=== PATIENT | female | born 1960 | race Caucasian/White ===

== ENCOUNTER 2017-06-23 15:51 | Inpatient (IN) | payer MEDICAID ==
[2017-06-23 15:55] VITALS: BP 155/85; PULSE 165; RESP 18; TEMP 97.8; O2SAT 100
--- NOTE | 2017-06-23 16:19 | RADRPT ---
EXAM DATE/TIME: 06/23/2017 16:08 [facility] COMPARISON: No previous studies available for comparison. INDICATIONS : Short of breath. Chest pain. MEDICAL HISTORY : Chronic obstructive pulmonary disease. A fib. SURGICAL HISTORY : None. ENCOUNTER: Initial ACUITY: 1 day PAIN SCORE: 0/10 LOCATION: Bilateral chest FINDINGS: PA and lateral views of the chest demonstrate the lungs to be symmetrically aerated with hazy perihil ar and bibasal or opacities with no focal consolidation or effusion. The heart size at the upper limi ts of normal. The bony thorax is intact. CONCLUSION: Bilateral hazy perihilar and bibasal opacities of concern for pulmonary edema which m ay be noncardiogenic. Cliff Bernal MD on June 23, 2017 at 16:18 Board Certified Radiologist. This report was verified electronically.
[2017-06-23 16:45] LABS: AUTOMATED NEUTROPHIL # 6.4 TH/MM3 (1.8-7.7); BASOPHIL # 0.1 TH/MM3 (0-0.2); BASOPHIL % 0.8 % (0.0-2.0); EOSINOPHIL # 0.2 TH/MM3 (0-0.4); EOSINOPHIL % 2.9 % (0.0-4.0); HEMOGLOBIN 7.9 GM/DL (11.6-15.3); INTERNATIONAL NORMALIZED RATIO 1.2 RATIO; LYMPH % 14.3 % (9.0-44.0); LYMPHOCYTE # 1.2 TH/MM3 (1.0-4.8); MEAN CELL VOLUME 69.7 FL (80.0-100.0); MEAN CORPUSCULAR HEMOGLOBIN 21.3 PG (27.0-34.0); MEAN CORPUSCULAR HGB CONC 30.5 % (32.0-36.0); MEAN PLATELET VOLUME 8.8 FL (7.0-11.0); MONO % 6.7 % (0.0-8.0); MONOCYTE # 0.6 TH/MM3 (0-0.9); NEUT % 75.3 % (16.0-70.0); PLATELET COUNT 294 TH/MM3 (150-450); PROTHROMBIN TIME - PATIENT 12.2 SEC (9.8-11.6); RED BLOOD COUNT 3.73 MIL/MM3 (4.00-5.30); RED CELL DISTRIBUTION WIDTH 22.1 % (11.6-17.2); WHITE BLOOD COUNT 8.5 TH/MM3 (4.0-11.0)
[2017-06-23 16:46] LABS: ALBUMIN 3.5 GM/DL (3.4-5.0); ALT (GPT) 12 U/L (10-53); AST (GOT) 18 U/L (15-37); BICARBONATE 24.2 MEQ/L (21.0-32.0); BLOOD UREA NITROGEN 15 MG/DL (7-18); CALCIUM 8.9 MG/DL (8.5-10.1); CHLORIDE 103 MEQ/L (98-107); CREATININE 0.81 MG/DL (0.50-1.00); GLOMERULAR FILTRATION RATE 72 ML/MIN (>89); GLUCOSE,RANDOM 95 MG/DL (74-106); MAGNESIUM 1.7 MG/DL (1.5-2.5); SODIUM (NA) 136 MEQ/L (136-145)
[2017-06-23 16:50] LABS: ALKALINE PHOSPHATASE 122 U/L (45-117); TOTAL BILIRUBIN ADULT 1.1 MG/DL (0.2-1.0); TROPONIN I LESS THAN 0.02 NG/ML (0.02-0.05)
[2017-06-23] MEDS ORDERED: OMEP20TA93 PO (17:05)
[2017-06-23] MEDS ORDERED: PARO20TA2 PO (17:05)
[2017-06-23] MEDS ORDERED: DILTIAZEM INJ 125 MG in SODIUM CHLORIDE 0.9% INJ 100 ML IV PRN (17:15)
[2017-06-23] MEDS ORDERED: DILTIAZEM HCL 25 MG/5 ML VIAL IV PUSH ONE (17:15)
[2017-06-23] MEDS: SODIUM CHLOR 0.9% 1000 ML INJ 1,000 ML IV SCH (17:26)
--- NOTE | 2017-06-23 17:39 | PD ---
HPI Chief Complaint: Abdominal Pain Time Seen by Provider: 16:51 Travel History International Travel<30 days: No Contact w/Intl Traveler<30days: No Traveled to known affect area: No History of Present Illness HPI 57-year-old female complains of epigastric abdominal pain, nausea vomiting and shortness of breath. Patient states that the symptoms started 3 days ago. Patient states the pain is burning pain sharp pain localized around epigastric area. Patient denies any pain radiation. Patient denies any fever chills. Patient states that she has nausea vomiting and diarrhea with the pain. Patient has history of atrial fibrillation. Patient was on Coumadin in the past. Coumadin was stopped and patient was put on Xarelto 2 years ago. Patient states that she stopped taking the round to 2 weeks ago after has severe itching of the skin. Patient states that she has persistent skin itching despite stopping Xarelto. Patient denies any new medication. Patient denies any new exposure. Patient has history hypertension, COPD, GERD. Patient states that she has not taken any medication for blood pressure or GERD. Patient denies any history of alcohol abuse. Patient has history of anemia. Patient states that she had upper GI and colonoscopy done without clear source of GI bleed. Patient had blood transfusion in the past for anemia. Patient was on metoprolol and omeprazole in the past. PFSH Past Medical History Anemia: Yes Anxiety: Yes Cardiovascular Problems: Yes GERD: Yes Respiratory: Yes Tubal Ligation: Yes Social History Alcohol Use: No Tobacco Use: Yes (ppd) Substance Use: No Allergies-Medications (Allergen,Severity, Reaction): Coded Allergies: Sulfa (Sulfonamide Antibiotics) (Verified Allergy, Unknown, 06/23/17) ciprofloxacin (Verified Allergy, Unknown, 06/23/17) hydromorphone (Verified Allergy, Unknown, 06/23/17) Reported Meds & Prescriptions Reported Meds & Active Scripts Active Reported Paroxetine (Paroxetine HCl) Unknown Strength Tab Unknown Dose PO DAILY Omeprazole Unknown Strength Tab Unknown Dose PO DAILY Review of Systems General / Constitutional: No: Fever Eyes: No: Visual changes HENT: No: Headaches Cardiovascular: No: Chest Pain or Discomfort Respiratory: Positive: Shortness of Breath Gastrointestinal: Positive: Nausea, Vomiting, Diarrhea, Abdominal Pain Genitourinary: No: Dysuria Musculoskeletal: No: Pain Skin: No Rash Neurologic: No: Weakness Psychiatric: No: Depression Endocrine: No: Polydipsia Hematologic/Lymphatic: No: Easy Bruising Physical Exam Narrative GENERAL: Well-nourished, well-developed patient. SKIN: Focused skin assessment warm/dry. Mild jaundice noted. Multiple small lesions on the upper extremity. HEAD: Normocephalic. EYES: Mild bilaterally scleral icterus. No injection or drainage. NECK: Supple, trachea midline. No JVD or lymphadenopathy. CARDIOVASCULAR: Irregular irregular rate and rhythm without murmurs, gallops, or rubs. RESPIRATORY: Breath sounds equal bilaterally. No accessory muscle use. GASTROINTESTINAL: Abdomen soft, nondistended. Patient has moderate tenderness on palpation epigastric area. No rebound tenderness. No mass. MUSCULOSKELETAL: No cyanosis, or edema. BACK: Nontender without obvious deformity. No CVA tenderness. Neurologic exam normal. Data Data Last Documented VS Vital Signs Date Time Temp Pulse Resp B/P (MAP) Pulse Ox O2 Delivery O2 Flow Rate FiO2 06/23/17 15:55 97.8 165 18 155/85 (108) 100 Orders Orders Electrocardiogram (06/23/17 15:58) Ckmb (Isoenzyme) Profile (06/23/17 15:58) Complete Blood Count With Diff (06/23/17 15:58) Comprehensive Metabolic Panel (06/23/17 15:58) Magnesium (Mg) (06/23/17 15:58) Prothrombin Time / Inr (Pt) (06/23/17 15:58) Act Partial Throm Time (Ptt) (06/23/17 15:58) Troponin I (06/23/17 15:58) Lipase (06/23/17 15:58) Chest, Pa & Lat (06/23/17 15:58) Diltiazem Inj (Cardizem Inj) (06/23/17 17:15) Diltiazem Inj (Cardizem Inj) (06/23/17 17:15) Sodium Chlor 0.9% 1000 Ml Inj (Ns 1000 M (06/23/17 17:15) Labs Laboratory Tests Test 06/23/17 16:15 White Blood Count 8.5 TH/MM3 Red Blood Count 3.73 MIL/MM3 Hemoglobin 7.9 GM/DL Hematocrit 26.0 % Mean Corpuscular Volume 69.7 FL Mean Corpuscular Hemoglobin 21.3 PG Mean Corpuscular Hemoglobin Concent 30.5 % Red Cell Distribution Width 22.1 % Platelet Count 294 TH/MM3 Mean Platelet Volume 8.8 FL Neutrophils (%) (Auto) 75.3 % Lymphocytes (%) (Auto) 14.3 % Monocytes (%) (Auto) 6.7 % Eosinophils (%) (Auto) 2.9 % Basophils (%) (Auto) 0.8 % Neutrophils # (Auto) 6.4 TH/MM3 Lymphocytes # (Auto) 1.2 TH/MM3 Monocytes # (Auto) 0.6 TH/MM3 Eosinophils # (Auto) 0.2 TH/MM3 Basophils # (Auto) 0.1 TH/MM3 CBC Comment DIFF FINAL Differential Comment Prothrombin Time 12.2 SEC Prothromb Time International Ratio 1.2 RATIO Activated Partial Thromboplast Time 23.8 SEC Blood Urea Nitrogen 15 MG/DL Creatinine 0.81 MG/DL Random Glucose 95 MG/DL Total Protein 8.0 GM/DL Albumin 3.5 GM/DL Calcium Level 8.9 MG/DL Magnesium Level 1.7 MG/DL Alkaline Phosphatase 122 U/L Aspartate Amino Transf (AST/SGOT) 18 U/L Alanine Aminotransferase (ALT/SGPT) 12 U/L Total Bilirubin 1.1 MG/DL Sodium Level 136 MEQ/L Potassium Level 3.3 MEQ/L Chloride Level 103 MEQ/L Carbon Dioxide Level 24.2 MEQ/L Anion Gap 9 MEQ/L Estimat Glomerular Filtration Rate 72 ML/MIN Total Creatine Kinase 43 U/L Troponin I LESS THAN 0.02 NG/ML Lipase 115 U/L MDM Medical Decision Making Medical Screen Exam Complete: Yes Emergency Medical Condition: Yes Interpretation(s) 1737 PM. Chest x-ray shows bilateral haziness perihilar and bibasilar possible pulmonary edema. CBC WBC 8.5. Hemoglobin 7.9 hematocrit 26.0. MCV 69.7. 75 neutrophil. Potassium 3.3. Total bili 1.1. Alkaline phosphatase 122. Cardiac enzymes are normal. INR 1.2. Differential Diagnosis Differential diagnosis including hepatitis, cholecystitis, gastritis, PUD, pancreatitis, colitis, UTI, pyelonephritis, nephrolithiasis. Narrative Course 57-year-old female complaints of itching, epigastric abdominal pain, nausea vomiting diarrhea. Patient has history of atrial fibrillation. EKG showed A. fib with RVR. Cardizem bolus and drip started. Normal saline solution 75 cc an hour. Diagnosis Primary Impression: Atrial fibrillation with RVR Aldo Laughlin MD Jun 23, 2017 17:39
[2017-06-23] MEDS ORDERED: diphenhydrAMINE HCL 50 MG/ML VIAL IV PUSH ONE (17:45)
[2017-06-23] MEDS ORDERED: ONDANSETRON HCL 4 MG/2 ML VIAL IV PUSH ONE (18:00)
[2017-06-23] MEDS ORDERED: ATROPINE/SCOPOLAM/HYOSCYAM/PB ELIXIR 10 ML CUP PO ONE (18:00)
[2017-06-23] MEDS ORDERED: ALUMINUM/MAGNESIUM/SIMETH 30 ML CUP PO ONE (18:00)
[2017-06-23] MEDS ORDERED: FAMOTIDINE 20 MG/2 ML VIAL IV PUSH ONE (18:00)
[2017-06-23 19:00] VITALS: BP 126/60; PULSE 119; RESP 21; O2SAT 98
[2017-06-23] MEDS ORDERED: IOHEXOL 350 MG/ML 10 ML VIAL (for RAD DIAG) IVCONTRAST ONE (19:33)
--- NOTE | 2017-06-23 19:51 | RADRPT ---
EXAM DATE/TIME: 06/23/2017 19:25 [facility] COMPARISON: No previous studies available for comparison. INDICATIONS : Epigastric abdominal pain. IV CONTRAST: 100 cc Omnipaque 350 (iohexol) IV ORAL CONTRAST: No oral contrast ingested. RADIATION DOSE: 6.64 CTDIvol (mGy) MEDICAL HISTORY : Cardiovascular disease. Gastroesophageal reflux disease. SURGICAL HISTORY : Tubal ligation. ENCOUNTER: Initial ACUITY: 3 days PAIN SCALE: 9/10 LOCATION: Bilateral upper quadrant TECHNIQUE: Volumetric scanning of the abdomen and pelvis was performed. Using automated exposure control and ad justment of the mA and/or kV according to patient size, radiation dose was kept as low as reasonably achievable to obtain optimal diagnostic quality images. DICOM format image data is available electro nically for review and comparison. FINDINGS: A small right sided effusion and trace left-sided effusion is present. The liver and spleen are danni l in size and no focal defects are identified. There is a single stone within the gallbladder without wall thickening or pericholecystic fluid measuring 1 mm. The pancreas demonstrates no evidence of ma ss and there is no dilatation of the pancreatic duct. The adrenal glands and kidneys appear normal bi laterally. No hydronephrosis or mass lesions are identified. Examination of the pelvis demonstrates no evidence of free fluid or pelvic mass. No abnormally enlarg ed inguinal or retroperitoneal lymph nodes are present. The bladder is unremarkable. CONCLUSION: Small bilateral effusions No evidence of acute abdominal or pelvic process. No masses are identified. Cholelithiasis Lalo Wong MD on June 23, 2017 at 19:46 Board Certified Radiologist. This report was verified electronically.
--- NOTE | 2017-06-23 20:14 | PD ---
Data Data Last Documented VS Vital Signs Date Time Temp Pulse Resp B/P (MAP) Pulse Ox O2 Delivery O2 Flow Rate FiO2 06/23/17 19:00 119 21 126/60 (82) 98 Nasal Cannula 2.00 06/23/17 15:55 97.8 Orders Orders Electrocardiogram (06/23/17 15:58) Ckmb (Isoenzyme) Profile (06/23/17 15:58) Complete Blood Count With Diff (06/23/17 15:58) Comprehensive Metabolic Panel (06/23/17 15:58) Magnesium (Mg) (06/23/17 15:58) Prothrombin Time / Inr (Pt) (06/23/17 15:58) Act Partial Throm Time (Ptt) (06/23/17 15:58) Troponin I (06/23/17 15:58) Lipase (06/23/17 15:58) Chest, Pa & Lat (06/23/17 15:58) Diltiazem Inj (Cardizem Inj) (06/23/17 17:15) Diltiazem Inj (Cardizem Inj) (06/23/17 17:15) Sodium Chlor 0.9% 1000 Ml Inj (Ns 1000 M (06/23/17 17:15) Diphenhydramine Inj (Benadryl Inj) (06/23/17 17:45) Famotidine Inj (Pepcid Inj) (06/23/17 18:00) Al-Mag Hy-Si 40-40-4 Mg/Ml Liq (Mag-Al P (06/23/17 18:00) Tstil-Sllliy-Zgsdcf-Pb Liq ( Liq (06/23/17 18:00) Ondansetron Inj (Zofran Inj) (06/23/17 18:00) Ct Abd/Pel W Iv Contrast(Rout) (06/23/17 18:10) Iohexol 350 Inj (Omnipaque 350 Inj) (06/23/17 19:33) Type And Screen (06/23/17 20:14) Red Blood Cells (Rbc) (06/23/17 20:14) Potassium Chloride (Kcl) (06/23/17 20:15) B-Type Natriuretic Peptide (06/23/17 20:14) Admit Order (Ed Use Only) (06/23/17 20:28) Direct Tobias (06/23/17 22:00) Labs Laboratory Tests Test 06/23/17 16:15 White Blood Count 8.5 TH/MM3 Red Blood Count 3.73 MIL/MM3 Hemoglobin 7.9 GM/DL Hematocrit 26.0 % Mean Corpuscular Volume 69.7 FL Mean Corpuscular Hemoglobin 21.3 PG Mean Corpuscular Hemoglobin Concent 30.5 % Red Cell Distribution Width 22.1 % Platelet Count 294 TH/MM3 Mean Platelet Volume 8.8 FL Neutrophils (%) (Auto) 75.3 % Lymphocytes (%) (Auto) 14.3 % Monocytes (%) (Auto) 6.7 % Eosinophils (%) (Auto) 2.9 % Basophils (%) (Auto) 0.8 % Neutrophils # (Auto) 6.4 TH/MM3 Lymphocytes # (Auto) 1.2 TH/MM3 Monocytes # (Auto) 0.6 TH/MM3 Eosinophils # (Auto) 0.2 TH/MM3 Basophils # (Auto) 0.1 TH/MM3 CBC Comment DIFF FINAL Differential Comment Prothrombin Time 12.2 SEC Prothromb Time International Ratio 1.2 RATIO Activated Partial Thromboplast Time 23.8 SEC Blood Urea Nitrogen 15 MG/DL Creatinine 0.81 MG/DL Random Glucose 95 MG/DL Total Protein 8.0 GM/DL Albumin 3.5 GM/DL Calcium Level 8.9 MG/DL Magnesium Level 1.7 MG/DL Alkaline Phosphatase 122 U/L Aspartate Amino Transf (AST/SGOT) 18 U/L Alanine Aminotransferase (ALT/SGPT) 12 U/L Total Bilirubin 1.1 MG/DL Sodium Level 136 MEQ/L Potassium Level 3.3 MEQ/L Chloride Level 103 MEQ/L Carbon Dioxide Level 24.2 MEQ/L Anion Gap 9 MEQ/L Estimat Glomerular Filtration Rate 72 ML/MIN Total Creatine Kinase 43 U/L Troponin I LESS THAN 0.02 NG/ML B-Type Natriuretic Peptide 381 PG/ML Lipase 115 U/L [facility] Medical Record Reviewed: Yes Supervised Visit with FLORINA: No Narrative Course During the course of the patient's emergency department visit, the patient's history, examination, and differential diagnosis were reviewed with the patient. The patient was placed on a monitoring and evaluation advisor with oximetry and frequent blood pressure monitoring. The patient had IV access obtained and blood work sent for analysis. The patient's case was checked out to me by Dr. Laughlin. Please see his complete history and physical. The patient presented with A. fib with RVR and is now on a Cardizem drip. The patient also presented with midepigastric abdominal pain. The patient has recently been off of her medications. The patient was initially provided normal saline at 100 mL/h, Cardizem as a bolus and then a drip, Zofran 4 mg IV, famotidine 20 mg IV. The patient's laboratory studies were reviewed and remarkable for a white count of 8.5, hemoglobin 7.9 in a patient who reports a history of anemia status post endoscopy and colonoscopy and no discernible cause for her anemia. She reports that she has had blood transfusions in the past. Platelets are 294, neutrophils 75.3, CMP is remarkable for potassium of 3.3 which will be supplemented orally, GFR 72, total bilirubin 1.1, alk phos 122, cardiac enzymes within normal limits, lipase 115, PT 12.2, INR 1.2, PTT 23.8 Radiology studies were reviewed and remarkable for a chest x-ray that shows bilateral hazy perihilar and bibasilar opacities of concern for pulmonary edema which may be noncardiogenic as the patient has no cardiac enlargement. CT scan of the abdomen and pelvis revealed small bilateral effusions, no evidence of acute abdominal or pelvic process. No masses are identified. The patient's results were discussed with the patient, including the plan of care. I explained that further testing and/ or monitoring is indicated based on the patient's history, examination, and/ or laboratory findings. Therefore, I recommended admission for additional evaluation. The patient expressed understanding and was agreeable with this plan. The patient was admitted to the hospital in guarded condition and [facility] Phys[facility] Communication Physician Communication The patient's case including history, pertinent physical examination findings, and laboratory studies were discussed with Dr. Dickerson. It was agreed that the [facility] would [facility] Diagnosis Primary Impression: Atrial fibrillation with RVR Additional Impression: Anemia Qualified Codes: D64.9 - Anemia, unspecified Admitting Information Admitting Physician Requests: Admit Mirta Bateman MD Jun 23, 2017 20:14
[2017-06-23] MEDS ORDERED: POTASSIUM CHLORIDE 20 MEQ CONTROLLED RELEASE TAB PO ONE (20:15)
[2017-06-23] MEDS ORDERED: SODIUM CHLOR 0.45% 1000 ML INJ 1,000 ML IV SCH (20:29)
[2017-06-23] MEDS ORDERED: SENNOSIDES 8.6 MG TAB PO PRN (20:30)
[2017-06-23] MEDS ORDERED: MAGNESIUM HYDROXIDE SUSP 30 ML CUP PO PRN (20:30)
[2017-06-23] MEDS ORDERED: BISACODYL 10 MG SUPP RECTAL PRN (20:30)
[2017-06-23] MEDS ORDERED: SODIUM CHLORIDE 0.9% FLUSH 10 ML FLUSH IV FLUSH PRN (20:30)
[2017-06-23] MEDS ORDERED: ONDANSETRON HCL 4 MG/2 ML VIAL IVP PRN (20:30)
[2017-06-23] MEDS ORDERED: NALOXONE HCL 0.4 MG/ML AMP IV PUSH PRN (20:30)
[2017-06-23] MEDS ORDERED: LACTULOSE SYRUP 20 GM/30 ML CUP PO PRN (20:30)
[2017-06-23] MEDS ORDERED: ACETAMINOPHEN 325 MG TAB PO PRN (20:30)
[2017-06-23] MEDS: SODIUM CHLORIDE 0.9% FLUSH 10 ML FLUSH IV FLUSH SCH (21:00)
[2017-06-23 21:05] VITALS: BP 133/64; PULSE 122; RESP 19; O2SAT 96
[2017-06-23 21:11] VITALS: O2SAT 93
[2017-06-23 23:00] VITALS: BP 146/70; PULSE 120; RESP 18; O2SAT 96
[2017-06-23] MEDS ORDERED: hydrOXYzine PAMOATE 25 MG CAP PO PRN (23:30)
--- NOTE | 2017-06-23 23:33 | HHI.HP ---
[facility] Non[facility]Staff Admission Diagnosis Afib with RVR, Anemia Diagnoses: Chief Complaint: Midepigastric pain and shortness of breath Travel History International Travel<30 Days: No Contact w/Intl Traveler <30 Da: No Traveled to Known Affected Are: No History of Present Illness 57-year-old female with a medical history significant for atrial fibrillation, anxiety, GERD who presents to the hospital with complaint of midepigastric discomfort and shortness of breath. Patient reports her symptoms started all couple of days ago. Apparently she is in the process of moving to [place]. She currently lives in [place] and is here temporarily. She has not been taking any of her medications for this past week. She states she normally takes metoprolol for atrial fibrillation and discontinued Xarelto about 3 weeks ago secondary to adverse skin reaction. Patient reported a sensation of burning midepigastric pain. She states she has a history of GERD and has had endoscopy and colonoscopy done without significant findings. She states she has had blood transfusion in the past for anemia. Workup in the emergency room revealed the patient to be in A. fib with RVR. She denies shortness of breath currently. Currently she reports feeling mildly anxious. Review of Systems Constitutional: DENIES: Fever, Chills Respiratory: COMPLAINS OF: Shortness of breath Cardiovascular: DENIES: Chest pain Gastrointestinal: COMPLAINS OF: Abdominal pain, Nausea, Vomiting, DENIES: Black stools Musculoskeletal: DENIES: Joint pain Integumentary: COMPLAINS OF: Pruritus, Rash Psychiatric: COMPLAINS OF: Anxiety Except as stated in HPI: all other systems reviewed are Neg Past Family Social History Past Medical History atrial fibrillation, anxiety, GERD Past Surgical History Tubal ligation Reported Medications Poor historian Reportedly on metoprolol, paroxetine, omeprazole Allergies: Coded Allergies: Sulfa (Sulfonamide Antibiotics) (Verified Allergy, Unknown, 06/23/17) ciprofloxacin (Verified Allergy, Unknown, 06/23/17) hydromorphone (Verified Allergy, Unknown, 06/23/17) Family History Both parents with a history of CVA. Social History Current tobacco abuser 1 pack per day. Denies alcohol or illicit drugs. Physical Exam Vital Signs Vital Signs Date Time Temp Pulse Resp B/P (MAP) Pulse Ox O2 Delivery O2 Flow Rate FiO2 06/23/17 21:11 93 06/23/17 19:00 119 21 126/60 (82) 98 Nasal Cannula 2.00 06/23/17 18:01 127 141/94 06/23/17 15:55 97.8 165 18 155/85 (108) 100 Physical Exam GENERAL: This is a well-nourished, well-developed patient, in no apparent distress. SKIN: Multiple dry scabs involving the upper torso and upper extremity. HEAD: Atraumatic. Normocephalic. No temporal or scalp tenderness. EYES: Pupils equal round and reactive. Extraocular motions intact. No scleral icterus. No injection or drainage. ENT: Nose without bleeding, purulent drainage or septal hematoma. Throat without erythema, tonsillar hypertrophy or exudate. Uvula midline. Airway patent. NECK: Trachea midline. No JVD or lymphadenopathy. Supple, nontender, no meningeal signs. CARDIOVASCULAR: Rate around 100. Irregular rhythm. No significant murmurs. RESPIRATORY: Clear to auscultation. Breath sounds equal bilaterally. No wheezes , rales, or rhonchi. GASTROINTESTINAL: Abdomen soft, non-tender, nondistended. No hepato-splenomegaly , or palpable masses. No guarding. MUSCULOSKELETAL: Extremities without clubbing, cyanosis, or edema. No joint tenderness, effusion, or edema noted. No calf tenderness. Negative Homans sign bilaterally. NEUROLOGICAL: Awake and alert. Cranial nerves II through XII intact. Motor and sensory grossly within normal limits. Five out of 5 muscle strength in all muscle groups. Normal speech. Laboratory Laboratory Tests Test 06/23/17 16:15 White Blood Count 8.5 Red Blood Count 3.73 Hemoglobin 7.9 Hematocrit 26.0 Mean Corpuscular Volume 69.7 Mean Corpuscular Hemoglobin 21.3 Mean Corpuscular Hemoglobin Concent 30.5 Red Cell Distribution Width 22.1 Platelet Count 294 Mean Platelet Volume 8.8 Neutrophils (%) (Auto) 75.3 Lymphocytes (%) (Auto) 14.3 Monocytes (%) (Auto) 6.7 Eosinophils (%) (Auto) 2.9 Basophils (%) (Auto) 0.8 Neutrophils # (Auto) 6.4 Lymphocytes # (Auto) 1.2 Monocytes # (Auto) 0.6 Eosinophils # (Auto) 0.2 Basophils # (Auto) 0.1 CBC Comment DIFF FINAL Differential Comment Prothrombin Time 12.2 Prothromb Time International Ratio 1.2 Activated Partial Thromboplast Time 23.8 Blood Urea Nitrogen 15 Creatinine 0.81 Random Glucose 95 Total Protein 8.0 Albumin 3.5 Calcium Level 8.9 Magnesium Level 1.7 Alkaline Phosphatase 122 Aspartate Amino Transf (AST/SGOT) 18 Alanine Aminotransferase (ALT/SGPT) 12 Total Bilirubin 1.1 Sodium Level 136 Potassium Level 3.3 Chloride Level 103 Carbon Dioxide Level 24.2 Anion Gap 9 Estimat Glomerular Filtration Rate 72 Total Creatine Kinase 43 Troponin I LESS THAN 0.02 Lipase 115 Result Diagram: 06/23/17 1615 06/23/17 1615 Imaging Last Impressions Chest X-Ray 06/23/17 1558 Signed Impressions: Service Date/Time: Friday, June 23, 2017 16:08 - CONCLUSION: Bilateral hazy perihilar and bibasal opacities of concern for pulmonary edema which may be noncardiogenic. Cliff Bernal MD Capbryi VTE Risk Assessment Caprini VTE Risk Assessment: Mod/High Risk (score >= 2) Caprini Risk Assessment Model Point Value = 1 Point Value = 2 Point Value = 3 Point Value = 5 Age 41-60 Minor surgery BMI > 25 kg/m2 Swollen legs Varicose veins or History of unexplained or recurrent spontaneous Oral contraceptives or hormone replacement Sepsis (< 1 month) Serious lung disease, including pneumonia (< 1 month) Abnormal pulmonary function Acute myocardial infarction Congestive heart failure (< 1 month) History of inflammatory bowel disease Medical patient at bed rest Age 61-74 Arthroscopic surgery Major open surgery (> 45 min) Laparoscopic surgery (> 45 min) Malignancy Confined to bed (> 72 hours) Immobilizing plaster cast Central venous access Age >= 75 History of VTE Family history of VTE Factor V Leiden Prothrombin [id number] Lupus anticoagulant Anticardiolipin antibodies Elevated serum homocysteine Heparin-induced thrombocytopenia Other congenital or acquired thrombophilia Stroke (< 1 month) Elective arthroplasty Hip, pelvis, or leg fracture Acute spinal cord injury (< 1 month) Prophylaxis Regimen Total Risk Factor Score Risk Level Prophylaxis Regimen 0-1 Low Early ambulation 2 Moderate Order ONE of the following: *Sequential Compression Device (SCD) *Heparin 5000 units SQ BID 3-4 Higher Order ONE of the following medications: *Heparin 5000 units SQ TID *Enoxaparin/Lovenox 40 mg SQ daily (WT < 150 kg, CrCl > 30 mL/min) *Enoxaparin/Lovenox 30 mg SQ daily (WT < 150 kg, CrCl > 10-29 mL/min) *Enoxaparin/Lovenox 30 mg SQ BID (WT < 150 kg, CrCl > 30 mL/min) AND/OR *Sequential Compression Device (SCD) 5 or more Highest Order ONE of the following medications: *Heparin 5000 units SQ TID (Preferred with Epidurals) *Enoxaparin/Lovenox 40 mg SQ daily (WT < 150 kg, CrCl > 30 mL/min) *Enoxaparin/Lovenox 30 mg SQ daily (WT < 150 kg, CrCl > 10-29 mL/min) *Enoxaparin/Lovenox 30 mg SQ BID (WT < 150 kg, CrCl > 30 mL/min) AND *Sequential Compression Device (SCD) Assessment and Plan Problem List: (1) Atrial fibrillation with RVR ICD Code: I48.91 - Unspecified atrial fibrillation Status: Acute Plan: Secondary to noncompliance. Resume metoprolol. Patient does not know her home dose. Start at 50 mg every 8 hours. Wean off Cardizem drip as tolerated. Discussed starting new anticoagulant with the patient. She is agreeable to try Eliquis. This was started and the patient will need a limited supply until she can establish with a new physician. (2) GERD (gastroesophageal reflux disease) ICD Code: K21.9 - Gastro-esophageal reflux disease without esophagitis Plan: Possible gastritis as a cause of her midepigastric pain. This is resolving. -Protonix ordered. (3) Anxiety ICD Code: F41.9 - Anxiety disorder, unspecified Plan: Vistaril as needed (4) Anemia ICD Code: D64.9 - Anemia, unspecified Status: Acute Plan: Chronic anemia possibly secondary to occult GI bleed. Patient reports she has had extensive workup in the past. Continue to monitor H&H and transfuse as indicated. (5) Pulmonary edema ICD Code: J81.1 - Chronic pulmonary edema Plan: Pulmonary edema noted on chest x-ray. However physical exam is reassuring. She was on room air at the time of my exam. Possible early CHF. - BNP is pending. Continue to monitor Discussed Condition With Dr. Bateman Physician Certification 2 Midnight Certification Type: Admission for Inpatient Services Order for Inpatient Services The services are ordered in accordance with Medicare regulations or non- Medicare payer requirements, as applicable. In the case of services not specified as inpatient-only, they are appropriately provided as inpatient services in accordance with the 2-midnight benchmark. Estimated LOS (days): 2 days is the estimated time the patient will need to remain in the hospital, assuming treatment plan goals are met and no additional complications. Post-Hospital Plan: Home Problem Qualifiers (1) Anemia: Qualified Codes: D64.9 - Anemia, unspecified Rosana Dickerson MD Jun 23, 2017 23:33
[2017-06-24] VITALS (35 sets, daily range): BP systolic 77–143; BP diastolic 51–82; PULSE 46–138; RESP 16–20; TEMP 94–98.4; O2SAT 90–100
[2017-06-24] MEDS: METOPROLOL TARTRATE 50 MG TAB PO SCH ×2 (00:15→06:00)
[2017-06-24] MEDS ORDERED: SODIUM CHLORID 0.9% 500 ML INJ 500 ML IV ONE (02:45)
[2017-06-24] MEDS: SODIUM CHLOR 0.9% 1000 ML INJ 1,000 ML IV SCH ×4 (03:15→22:41)
[2017-06-24] MEDS ORDERED: PANTOPRAZOLE SODIUM 40 MG VIAL IV PUSH ONE (03:15)
[2017-06-24 05:38] LABS: AUTOMATED NEUTROPHIL # 5.7 TH/MM3 (1.8-7.7); BASOPHIL % 0.6 % (0.0-2.0); EOSINOPHIL # 0.2 TH/MM3 (0-0.4); EOSINOPHIL % 3.3 % (0.0-4.0); HEMATOCRIT 26.1 % (35.0-46.0); HEMOGLOBIN 7.6 GM/DL (11.6-15.3); LYMPH % 14.2 % (9.0-44.0); MEAN CELL VOLUME 72.9 FL (80.0-100.0); MEAN CORPUSCULAR HEMOGLOBIN 21.2 PG (27.0-34.0); MEAN PLATELET VOLUME 8.9 FL (7.0-11.0); MONO % 3.9 % (0.0-8.0); MONOCYTE # 0.3 TH/MM3 (0-0.9); PLATELET COUNT 258 TH/MM3 (150-450); RED BLOOD COUNT 3.58 MIL/MM3 (4.00-5.30); RED CELL DISTRIBUTION WIDTH 21.5 % (11.6-17.2); WHITE BLOOD COUNT 7.3 TH/MM3 (4.0-11.0)
[2017-06-24 05:40] LABS: MEAN CORPUSCULAR HGB CONC 29.1 % (32.0-36.0)
[2017-06-24 05:57] LABS: BICARBONATE 18.4 MEQ/L (21.0-32.0); CALCIUM 8.6 MG/DL (8.5-10.1); CREATININE 1.16 MG/DL (0.50-1.00)
[2017-06-24] MEDS: APIXABAN 2.5 MG TABLET PO SCH ×2 (09:00→13:06)
[2017-06-24] MEDS ORDERED: PANTOPRAZOLE SOD 40 MG DELAYED RELEASE TAB PO SCH (09:00)
[2017-06-24] MEDS: SODIUM CHLORIDE 0.9% FLUSH 10 ML FLUSH IV FLUSH SCH ×2 (09:49→22:40)
--- NOTE | 2017-06-24 11:28 | EKG ---
Date Performed: 06/23/2017 Time Performed: 16:19:56 PTAGE: 57 years EKG: ATRIAL FIBRILLATION WITH RAPID VENTRICULAR RESPONSE ABNORMAL RHYTHM ECG NO PREVIOUS TRACING DOCTOR: Lalo Yusuf Interpretating Date/Time 06/24/2017 11:26:11
[2017-06-24] MEDS ORDERED: METOPROLOL TARTRATE 50 MG TAB PO SCH ×2 (13:00→21:00)
[2017-06-24] MEDS ORDERED: SODIUM BICARBONATE 8.4% INJ 50 MEQ/50 ML SYR IV PUSH ONE ×2 (14:30→17:00)
[2017-06-24] MEDS ORDERED: FUROSEMIDE 40 MG/4 ML VIAL IV PUSH ONE (14:30)
--- NOTE | 2017-06-24 14:36 | HHI.PR ---
Subjective Remarks Patient very somnolent upon exam this afternoon. Does not wake up to verbal stimulation. Arousable slightly to tactile stimulation. Discussed with nurse, who reports patient has been like this all day Objective Vital Signs Date Time Temp Pulse Resp B/P (MAP) Pulse Ox O2 Delivery O2 Flow Rate FiO2 06/24/17 14:00 46 06/24/17 13:08 47 123/71 (88) 06/24/17 13:00 47 06/24/17 12:15 47 06/24/17 12:00 48 06/24/17 11:03 49 06/24/17 11:03 49 16 126/65 (85) 95 06/24/17 11:00 49 06/24/17 10:42 134/66 (88) 06/24/17 10:02 50 06/24/17 10:00 50 06/24/17 09:55 112/55 (74) 06/24/17 09:35 50 06/24/17 09:00 60 06/24/17 08:14 54 06/24/17 07:42 92 Nasal Cannula 2.00 06/24/17 07:30 55 17 108/57 (74) 95 06/24/17 07:15 60 06/24/17 06:00 59 06/24/17 05:45 61 17 106/61 (76) 97 06/24/17 05:00 58 06/24/17 04:00 58 06/24/17 04:00 98.4 60 17 99/60 (73) 97 06/24/17 03:20 61 18 94/56 (69) 96 06/24/17 03:00 60 17 77/51 (60) 98 06/24/17 03:00 60 06/24/17 02:00 55 06/24/17 02:00 55 81/51 06/24/17 02:00 55 17 81/51 (61) 97 06/24/17 01:00 78 06/24/17 01:00 108 20 110/76 (87) 97 06/24/17 01:00 108 110/76 06/24/17 00:24 128 06/24/17 00:24 138 128/75 06/24/17 00:24 06/24/17 00:24 98.1 138 17 128/75 (92) 97 06/23/17 23:00 120 18 146/70 (95) 96 Nasal Cannula 2.00 06/23/17 21:11 93 06/23/17 21:05 122 19 133/64 (87) 96 Nasal Cannula 2.00 06/23/17 19:00 119 21 126/60 (82) 98 Nasal Cannula 2.00 06/23/17 18:01 127 141/94 06/23/17 15:55 97.8 165 18 155/85 (108) 100 I/O 06/23/17 06/23/17 06/23/17 06/24/17 06/24/17 06/24/17 07:00 15:00 23:00 07:00 15:00 23:00 Intake Total 470 ml 946 ml Output Total 400 ml Balance 70 ml 946 ml Intake Oral 0 ml IV Total 470 ml 946 ml Output Urine Total 400 ml # Bowel Movements 3 Result Diagram: 06/24/17 0429 06/24/17 0429 Objective Remarks GENERAL: Patient sitting up in bed. Snoring, arousable slightly to tactile stimulation. Moans, but no intelligible speech. SKIN: Warm and dry. HEAD: Normocephalic. EYES: No scleral icterus. No injection or drainage. NECK: Supple, trachea midline. No JVD or lymphadenopathy. CARDIOVASCULAR: Regular rate and rhythm without murmurs, gallops, or rubs. RESPIRATORY: Breath sounds equal bilaterally. No accessory muscle use. GASTROINTESTINAL: Abdomen soft, non-tender, nondistended. MUSCULOSKELETAL: No cyanosis, or edema. BACK: Nontender without obvious deformity. No CVA tenderness. A/P Assessment and Plan //Atrial fibrillation with RVR Plan: Secondary to noncompliance. Resume metoprolol. Patient does not know her home dose. Start at 50 mg every 8 hours. Wean off Cardizem drip as tolerated. Discussed starting new anticoagulant with the patient. She is agreeable to try Eliquis. This was started and the patient will need a limited supply until she can establish with a new physician. = Bradycardia today with heart rate in the 40s. Decrease metoprolol dose. Consult cardiology. //CHF exacerbation BNP in the 300s last night. Has been on fluids all night. Order Lasix. Check chest x-ray. //Metabolic acidosis. //Acute metabolic encephalopathy = ABG reviewed with bicarb of 11. = Uncertain etiology. Moving all extremities. Urinalysis, lactate, CK, urine drug screen ordered and pending. No signs of infection. //GERD (gastroesophageal reflux disease) ICD Code: K21.9 - Gastro-esophageal reflux disease without esophagitis Plan: Possible gastritis as a cause of her midepigastric pain. This is resolving. -Protonix ordered. // Anxiety ICD Code: F41.9 - Anxiety disorder, unspecified Plan: Vistaril as needed. Has not been given. // Anemia ICD Code: D64.9 - Anemia, unspecified Status: Acute Plan: Chronic anemia possibly secondary to occult GI bleed. Patient reports she has had extensive workup in the past. Continue to monitor H&H and transfuse as indicated. = H&H stable today 7.7. Will discontinue full AC due to chronic anemia. Discharge Planning Transfer to ICU Ramos Purcell MD Jun 24, 2017 14:36
[2017-06-24 14:45] LABS: BASOPHIL % 0.3 % (0.0-2.0); EOSINOPHIL % 0.1 % (0.0-4.0); HEMATOCRIT 30.6 % (35.0-46.0); HEMOGLOBIN 8.6 GM/DL (11.6-15.3); LYMPHOCYTE # 0.6 TH/MM3 (1.0-4.8); MEAN CELL VOLUME 74.7 FL (80.0-100.0); MEAN CORPUSCULAR HEMOGLOBIN 20.9 PG (27.0-34.0); MEAN PLATELET VOLUME 8.9 FL (7.0-11.0); MONO % 8.1 % (0.0-8.0); MONOCYTE # 0.6 TH/MM3 (0-0.9); NEUT % 82.5 % (16.0-70.0); PLATELET COUNT 203 TH/MM3 (150-450); RED CELL DISTRIBUTION WIDTH 22.3 % (11.6-17.2); WHITE BLOOD COUNT 7.2 TH/MM3 (4.0-11.0)
--- NOTE | 2017-06-24 14:56 | RADRPT ---
EXAM DATE/TIME: 06/24/2017 14:37 [facility] COMPARISON: CHEST PA & LAT, June 23, 2017, 16:08. INDICATIONS : Difficulty breathing. MEDICAL HISTORY : Cardiovascular disease. Gastroesophageal reflux disease. SURGICAL HISTORY : Tubal ligation. ENCOUNTER: Subsequent ACUITY: 2 days PAIN SCORE: Non-responsive. LOCATION: Bilateral chest FINDINGS: Increasing bibasilar parenchymal changes with developing consolidation on the right. Cardiac silhoue tte is prominent without failure. There is no pleural effusion. There is no pneumothorax. CONCLUSION: Increasing bibasilar parenchymal changes Ivan Contreras MD FACR on June 24, 2017 at 14:55 Board Certified Radiologist. This report was verified electronically.
[2017-06-24] MEDS: SODIUM BICARBONATE 8.4% INJ 150 MEQ in WATER STERILE FOR INJ 850 ML IV SCH ×2 (15:27→18:45)
[2017-06-24 16:06] LABS: SODIUM,RANDOM URINE 13 MEQ/L
[2017-06-24 16:07] LABS: BACTERIA, URINE OCC /hpf; BILIRUBIN, URINE NEG (NEG); BLOOD, URINE NEG (NEG); GLUCOSE,URINE NEG (NEG); KETONE, URINE TRACE mg/dL (NEG); MUCUS URINE MANY /lpf (OCC); NITRITE,URINE NEG (NEG); PH, URINE 5.5 (5.0-8.5); SQUAMOUS EPITHELIAL CELL URINE 1 /hpf (0-5); URINE COLOR YELLOW (YELLW/STRAW); URINE LEUKOCYTE ESTERASE NEG (NEG)
--- NOTE | 2017-06-24 16:30 | HHI.CCPN ---
Subjective Remarks/Hospital Course 57-year-old female. Date of admission 06/23/2017. Date of consultation 2017. Past medical history includes Patient originally presented to [facility] ED in atrial fibrillation with rapid ventricular response. Patient was initially started on a diltiazem drip and then was switched over to metoprolol tartrate 50 mg every 8 hours. After conversion, patient became bradycardic. CT abdomen/pelvis revealed a 1 mm gallstone without signs of cholecystitis. Otherwise unremarkable. The patient became more somnolent on the floor and bradycardic with heart rates as low as 42. EKG revealed sinus bradycardia with a first-degree AV block. Patient was arousable and with good pain in 1-2 word responses but fell asleep immediately. On examination patient did have pain especially in her right upper quadrant. CBC revealed hemoglobin 8.4. Ammonia level 35. BNP of 341. Remainder of laboratories are currently pending. Chest x-ray revealed right lower lobe infiltrate versus effusion. Patient did receive 60 mg total of furosemide within the past 24 hours. Objective Vital Signs Date Time Temp Pulse Resp B/P (MAP) Pulse Ox O2 Delivery O2 Flow Rate FiO2 06/24/17 14:00 46 06/24/17 13:08 123/71 (88) 06/24/17 11:03 16 95 06/24/17 07:42 Nasal Cannula 2.00 06/24/17 04:00 98.4 Intake and Output 06/24/17 06/24/17 06/24/17 07:59 15:59 23:59 Intake Total 470 ml 1036 ml Output Total 400 ml Balance 70 ml 1036 ml Result Diagram: 06/24/17 1431 06/24/17 0429 Other Results Microbiology Date/Time Source Procedure Growth Status 06/24/17 14:30 Urine Catheterized Urine Urine Culture Pending Received Imaging Last Impressions Chest X-Ray 06/24/17 0000 Signed Impressions: Service Date/Time: Saturday, June 24, 2017 14:37 - CONCLUSION: Increasing bibasilar parenchymal changes Ivan Contreras MD FACR Abdomen/Pelvis CT 06/23/17 1810 Signed Impressions: Service Date/Time: Friday, June 23, 2017 19:25 - CONCLUSION: Small bilateral effusions No evidence of acute abdominal or pelvic process. No masses are identified. Cholelithiasis Lalo Wong MD Objective Remarks GENERAL: 57-year-old female currently resting in bed in no acute distress SKIN: Warm and dry. No rash HEAD: Atraumatic. Normocephalic. EYES: Pupils equal and round about 2 mm bilaterally and brisk. No scleral icterus. No injection or drainage. ENT: No nasal bleeding or discharge. Mucous membranes pink and moist. NECK: Trachea midline. No JVD. CARDIOVASCULAR: Bradycardic, RRR. S1, S2 no S4. Without murmur RESPIRATORY: Diminished breath sounds right lower lobe posteriorly. No wheezing. GASTROINTESTINAL: Abdomen soft, tender to palpation in the right upper quadrant and epigastric region. No rigidity. MUSCULOSKELETAL: Extremities without significant peripheral edema. No obvious deformities. NEUROLOGICAL: A possible falls asleep. T. No obvious cranial nerve deficits. Motor grossly within normal limits. Five out of 5 muscle strength in the arms and legs. Slurred words with speech. Urinary Catheter: Yes Assessment to: Continue Ferguson insert reason: Prolonged Immobilization Vascular Central Line Catheter: No Assessment to: Continue A/P Assessment and Plan Neuro/Psych: Acute encephalopathy likely toxic metabolic UDS positive for barbiturates Acetaminophen 650 mg p.o. every 6 hours as needed fever/pain CT brain pending EEG ordered Neurochecks CV: Atrial fibrillation with RVR currently in sinus bradycardia History of atrial fibrillation Hypertension Resp: Acute respiratory insufficiency Right lower lobe infiltrate/pleural effusion GI: Epigastric/right upper quadrant pain Gastroesophageal reflux disease CT abdomen/pelvis revealed a 1 mm gallstone. No signs of cholecystitis. Otherwise unremarkable Previously patient has been on omeprazole 40 mg p.o. daily. Currently on pantoprazole 40 mg p.o. daily for gastroesophageal reflux disease Docusate sodium/senna 1 tablet twice daily for bowel regimen : Ferguson catheter has been placed for accurate I's and O's and critical patient Endo: Renal: Heme: ID: [id number]: FEN: Access -Utilized peripheral IV. Central and if indicated Guillermo Pratt MD Jun 24, 2017 16:30
--- NOTE | 2017-06-24 16:54 | PD.CONS ---
[facility] Service Critical Care Medicine Consult Requested By Dr. Purcell Reason for Consult Critical care management Primary Care Physician Non-Staff History of Present Illness 57-year-old female. Date of admission 06/23/2017. Date of consultation 2017. Past medical history includes atrial fibrillation previously on rivaroxaban and metoprolol, depression and anxiety. She developed a rash on her NOAC and stopped on her own. She presents to [facility] with a 3 day history of midepigastric pain. At this facility, she was noted to be in atrial fibrillation with rapid ventricular response. Patient was initially started on a diltiazem drip and then was switched over to metoprolol tartrate 50 mg every 8 hours. After conversion, patient became bradycardic. CT abdomen/pelvis revealed a 1 mm gallstone without signs of cholecystitis. Otherwise unremarkable. The patient became more somnolent on the floor and bradycardic with heart rates as low as 42. EKG revealed sinus bradycardia with a first-degree AV block. Patient was arousable and with good pain in 1-2 word responses but fell asleep immediately. On examination patient did have pain especially in her right upper quadrant. CBC revealed hemoglobin 8.4. Ammonia level 35. BNP of 341. Her creatinine was elevated at 1.7. Lactate was 11. Elevated bilirubin was noted. Patient on examination had increasing abdominal pain. Chest x-ray revealed right lower lobe infiltrate versus effusion. Patient did receive 60 mg total of furosemide within the past 24 hours. Blood sugar was 22 was given 1 ampule of D50 Currently going down to CT for stat brain, abdomen and pelvis. Review of Systems ROS Limitations: Clinical Condition, Altered Mental Status Past Family Social History Allergies: Coded Allergies: Sulfa (Sulfonamide Antibiotics) (Verified Allergy, Unknown, 06/23/17) ciprofloxacin (Verified Allergy, Unknown, 06/23/17) hydromorphone (Verified Allergy, Unknown, 06/23/17) Past Medical History Atrial fibrillation Gastroesophageal reflux disease Depression/anxiety Past Surgical History Tubal ligation Reported Medications Paroxetine unknown dosage daily Omeprazole unknown dosage daily Metoprolol unknown dosage Rivaroxaban unknown dosage quit 3 weeks ago Active Ordered Medications Reviewed in EMR Family History CVA Social History 1 pack per day tobacco use. Denies alcohol or illicit drug use. Urine drug screen positive for barbiturates Physical Exam Vital Signs Vital Signs Date Time Temp Pulse Resp B/P (MAP) Pulse Ox O2 Delivery O2 Flow Rate FiO2 06/24/17 14:00 46 06/24/17 13:08 47 123/71 (88) 06/24/17 13:00 47 06/24/17 12:15 47 06/24/17 12:00 48 06/24/17 11:03 49 06/24/17 11:03 49 16 126/65 (85) 95 06/24/17 11:00 49 06/24/17 10:42 134/66 (88) 06/24/17 10:02 50 06/24/17 10:00 50 06/24/17 09:55 112/55 (74) 06/24/17 09:35 50 06/24/17 09:00 60 06/24/17 08:14 54 06/24/17 07:42 92 Nasal Cannula 2.00 06/24/17 07:30 55 17 108/57 (74) 95 06/24/17 07:15 60 06/24/17 06:00 59 06/24/17 05:45 61 17 106/61 (76) 97 06/24/17 05:00 58 06/24/17 04:00 58 06/24/17 04:00 98.4 60 17 99/60 (73) 97 06/24/17 03:20 61 18 94/56 (69) 96 06/24/17 03:00 60 17 77/51 (60) 98 06/24/17 03:00 60 06/24/17 02:00 55 06/24/17 02:00 55 81/51 06/24/17 02:00 55 17 81/51 (61) 97 06/24/17 01:00 78 06/24/17 01:00 108 20 110/76 (87) 97 06/24/17 01:00 108 110/76 06/24/17 00:24 128 06/24/17 00:24 138 128/75 06/24/17 00:24 06/24/17 00:24 98.1 138 17 128/75 (92) 97 06/23/17 23:00 120 18 146/70 (95) 96 Nasal Cannula 2.00 06/23/17 21:11 93 06/23/17 21:05 122 19 133/64 (87) 96 Nasal Cannula 2.00 06/23/17 19:00 119 21 126/60 (82) 98 Nasal Cannula 2.00 06/23/17 18:01 127 141/94 Physical Exam GENERAL: 57-year-old female currently resting in bed in no acute distress SKIN: Warm and dry. No rash HEAD: Atraumatic. Normocephalic. EYES: Pupils equal and round about 2 mm bilaterally and brisk. No scleral icterus. No injection or drainage. ENT: No nasal bleeding or discharge. Mucous membranes pink and moist. NECK: Trachea midline. No JVD. CARDIOVASCULAR: Bradycardic, RR. S1, S2 no S4. Without murmur RESPIRATORY: Diminished breath sounds right lower lobe posteriorly. No wheezing. GASTROINTESTINAL: Abdomen soft, tender to palpation in the right upper quadrant and epigastric region. Voluntary guarding but no rigidity. Hypoactive bowel sounds are present MUSCULOSKELETAL: Extremities without significant peripheral edema. No obvious deformities. NEUROLOGICAL: A possible falls asleep. . No obvious cranial nerve deficits. Motor grossly within normal limits. Five out of 5 muscle strength in the arms and legs. Slurred words with speech. Laboratory Laboratory Tests Test 06/24/17 04:29 06/24/17 13:58 06/24/17 14:30 06/24/17 14:31 White Blood Count 7.3 7.2 Red Blood Count 3.58 4.10 Hemoglobin 7.6 8.6 Hematocrit 26.1 30.6 Mean Corpuscular Volume 72.9 74.7 Mean Corpuscular Hemoglobin 21.2 20.9 Mean Corpuscular Hemoglobin Concent 29.1 28.0 Red Cell Distribution Width 21.5 22.3 Platelet Count 258 203 Mean Platelet Volume 8.9 8.9 Neutrophils (%) (Auto) 78.0 82.5 Lymphocytes (%) (Auto) 14.2 9.0 Monocytes (%) (Auto) 3.9 8.1 Eosinophils (%) (Auto) 3.3 0.1 Basophils (%) (Auto) 0.6 0.3 Neutrophils # (Auto) 5.7 6.0 Lymphocytes # (Auto) 1.0 0.6 Monocytes # (Auto) 0.3 0.6 Eosinophils # (Auto) 0.2 0.0 Basophils # (Auto) 0.0 0.0 CBC Comment AUTO DIFF AUTO DIFF Differential Comment AUTO DIFF CONFIRMED AUTO DIFF CONFIRMED Platelet Estimate NORMAL NORMAL Platelet Morphology Comment ENLARGED ENLARGED Blood Urea Nitrogen 14 Creatinine 1.16 Random Glucose 125 Calcium Level 8.6 Sodium Level 140 Potassium Level 3.9 Chloride Level 108 Carbon Dioxide Level 18.4 Anion Gap 14 Estimat Glomerular Filtration Rate 48 Blood Gas Puncture Site RT RADIAL Blood Gas Patient Temperature 98.6 Blood Gas HCO3 11 Blood Gas Base Excess -16.0 Blood Gas Oxygen Saturation 92 Arterial Blood pH 7.16 Arterial Blood Partial Pressure CO2 32 Arterial Blood Partial Pressure O2 102 Arterial Blood Oxygen Content 10.6 Arterial Blood Carboxyhemoglobin 1.9 Arterial Blood Methemoglobin 1.3 Blood Gas Hemoglobin 8.1 Oxygen Delivery Device NASAL CANNULA Blood Gas Liter Flow 2 Urine Color YELLOW Urine Turbidity HAZY Urine pH 5.5 Urine Specific [place] GREATER THAN 1.050 Urine Protein 300 Urine Glucose (UA) NEG Urine Ketones TRACE Urine Occult Blood NEG Urine Nitrite NEG Urine Bilirubin NEG Urine Urobilinogen LESS THAN 2.0 Urine Leukocyte Esterase NEG Urine RBC 1 Urine WBC 7 Urine Squamous Epithelial Cells 1 Urine Bacteria OCC Urine Mucus MANY Microscopic Urinalysis Comment CATH-CULTURE IND Urine Random Sodium 13 Urine Random Potassium 51 Urine Random Chloride LESS THAN 10 Urine Opiates Screen NEG Urine Barbiturates Screen POS Urine Amphetamines Screen NEG Urine Benzodiazepines Screen NEG Urine Cocaine Screen NEG Urine Cannabinoids Screen NEG Ammonia 35 B-Type Natriuretic Peptide 342 Date/Time Source Procedure Growth Status 06/24/17 14:30 Urine Catheterized Urine Urine Culture Pending Received Result Diagram: 06/24/17 1431 06/24/17 0429 Imaging Last Impressions Chest X-Ray 06/24/17 0000 Signed Impressions: Service Date/Time: Saturday, June 24, 2017 14:37 - CONCLUSION: Increasing bibasilar parenchymal changes Ivan Contreras MD FACR Abdomen/Pelvis CT 06/23/17 1810 Signed Impressions: Service Date/Time: Friday, June 23, 2017 19:25 - CONCLUSION: Small bilateral effusions No evidence of acute abdominal or pelvic process. No masses are identified. Cholelithiasis Lalo Wong MD Septic Shock Reassessment Septic shock perfusion: reassessment completed Assessment and Plan Assessment and Plan Neuro/Psych: Acute encephalopathy likely toxic metabolic UDS positive for barbiturates Depression/anxiety Acetaminophen 650 mg p.o. every 6 hours as needed fever/pain CT brain pending EEG ordered Neurochecks Holding paroxetine unknown dosage daily home medication CV: Atrial fibrillation with RVR currently in sinus bradycardia with first-degree AV block History of atrial fibrillation Hypertension Elevated BNP 335 Lactic acidosis of 11 EKG reveals sinus bradycardia with first-degree AV block. Admission was A. fib with RVR. Currently normal sinus rhythm Cardiac markers currently pending TSH pending 2D echocardiogram ordered Cardiology consult by [facility] Serial lactate until clear.. Source possibly due to acute cholecystitis versus pyelonephritis. Resp: Acute respiratory insufficiency Right lower lobe infiltrate/pleural effusion Nasal cannula to maintain saturations greater than equal to 92% Incentive spirometry while awake Chest x-ray revealed possible right lower lobe infiltrate versus effusion GI: Epigastric/right upper quadrant pain Gastroesophageal reflux disease Elevated ammonia level [address] abdomen/pelvis revealed a 1 mm gallstone. No signs of cholecystitis. Otherwise unremarkable Previously patient has been on omeprazole 40 mg p.o. daily. Currently on pantoprazole 40 mg p.o. daily for gastroesophageal reflux disease Docusate sodium/senna 1 tablet twice daily for bowel regimen Stat CT abdomen/pelvis ordered : Ferguson catheter has been placed for accurate I's and O's and critical patient Endo: Sliding-scale insulin with Accu-Cheks to maintain glycemia Check TSH Renal: Acute kidney injury Did receive IV contrast yesterday. Check urine eosinophils and electrolytes No signs of hydronephrosis on CT abdomen/pelvis 06/23. Stranding noted around bilateral kidneys 06/24. Medical renal disease versus pyelonephritis Repeat BMP was 1.77 Heme: Microcytic hypochromic anemia We will need iron studies and Hemoccult test done during this hospitalization Self-reported negative EGD/colonoscopy in the past per prior record ID: Started on ampicillin/tazobactam with 1 dose of vancomycin. Await imaging UA likely infectious etiology. Blood cultures 2, sputum, influenza and urine Legionella pneumococcal antigen pending MSK: PT evaluate and treat FEN: Hyperkalemia Replace electrolytes as clinically Calcium gluconate, D50/insulin and bicarbonate 1 now. Recheck in 3 hours potassium Access -Utilized peripheral IV. Central and if indicated Prophylaxis -GI -pantoprazole -DVT -SCDs/withholding pharmacological prophylaxis until after CT brain completed Level [address] abdomen/pelvis revealed edematous gallbladder with vicarious contrast excretion, bilateral stranding around the kidneys with ascending colitis?. Ascites is noted as well. Discussed with Yaneth Garcia.. Daughter. Made aware of patient's critical condition including likely cholecystitis with possible renal and colonic involvement. Will need intubation and central line placement. Benefits and risks were discussed and she agreed to proceed. Also stated we likely need a cholecystostomy tube due to her acute illness. She would agree to this as well. Discussed with : IR. Notified with case discussed and he will place a cholecystostomy tube tonight. Code Status Full code Discussed Condition With Patient. Dr. Purcell. Care plan discussed and all questions answered. Guillermo Pratt MD Jun 24, 2017 16:54
[2017-06-24] MEDS ORDERED: POTASSIUM CHLORIDE 25 MEQ EFFERVESCENT TAB PO PRN (17:00)
[2017-06-24] MEDS ORDERED: POTASSIUM PHOSPHATE INJ 30 MMOL in SODIUM CHLOR 0.9% 250 ML INJ 250 ML IV PRN (17:00)
[2017-06-24] MEDS ORDERED: SODIUM PHOSPHATE INJ 30 MMOL in SODIUM CHLOR 0.9% 250 ML INJ 240 ML IV PRN (17:00)
[2017-06-24] MEDS ORDERED: MAGNESIUM SULFATE INJ 2 GM in SODIUM CHLORIDE 0.9% INJ 96 ML IV PRN (17:00)
[2017-06-24] MEDS ORDERED: INSULIN NovoLIN REGULAR SUPPLEMENTAL SCALE SQ SCH (17:00)
[2017-06-24] MEDS ORDERED: BISACODYL 10 MG SUPP RECTAL PRN (17:00)
[2017-06-24] MEDS ORDERED: POTASSIUM PHOSPHATE MONOBASIC 500 MG TAB PO/TUBE PRN (17:00)
[2017-06-24] MEDS ORDERED: DEXTROSE 50% IN WATER 50 ML VIAL(D50) IV PUSH PRN (17:00)
[2017-06-24] MEDS ORDERED: SENNOSIDES 8.6 MG TAB PO PRN (17:00)
[2017-06-24] MEDS ORDERED: MAGNESIUM SULFATE INJ 4 GM in SODIUM CHLORIDE 0.9% INJ 92 ML IV PRN (17:00)
[2017-06-24] MEDS ORDERED: MAGNESIUM OXIDE 400 MG TAB PO PRN (17:00)
[2017-06-24] MEDS ORDERED: POTASSIUM CHLOR 20 MEQ PREMIX 100 ML IV PRN (17:00)
[2017-06-24] MEDS ORDERED: MAGNESIUM HYDROXIDE SUSP 30 ML CUP PO PRN (17:00)
[2017-06-24] MEDS ORDERED: GLUCAGON 1 MG/ML VIAL OTHER PRN (17:00)
[2017-06-24] MEDS ORDERED: CHLORHEXIDINE GLUCONATE 2 % 1 PACK (2 CLOTHS) TOP PRN (17:00)
[2017-06-24] MEDS ORDERED: LACTULOSE SYRUP 20 GM/30 ML CUP PO PRN (17:00)
[2017-06-24 17:29] LABS: CHOLESTEROL 123 MG/DL (120-200); TRIGLYCERIDES 76 MG/DL (42-150)
[2017-06-24 17:30] LABS: ALBUMIN 3.2 GM/DL (3.4-5.0); AST (GOT) 79 U/L (15-37); BICARBONATE 15.4 MEQ/L (21.0-32.0); BLOOD UREA NITROGEN 23 MG/DL (7-18); CALCIUM 9.2 MG/DL (8.5-10.1); CHLORIDE 105 MEQ/L (98-107); CREATININE 1.77 MG/DL (0.50-1.00); DIRECT BILIRUBIN ADULT 1.2 MG/DL (0.0-0.2); GLOMERULAR FILTRATION RATE 29 ML/MIN (>89); SODIUM (NA) 139 MEQ/L (136-145)
[2017-06-24 17:31] LABS: % SATURATION IRON PROFILE 3.6 % (20-50); ALKALINE PHOSPHATASE 118 U/L (45-117); ALT (GPT) 30 U/L (10-53); FERRITIN 52 NG/ML (8-252); INDIRECT BILIRUBIN 1.5 MG/DL (0.0-0.8); IRON (FE) 16 MCG/DL (50-170); TOTAL BILIRUBIN ADULT 2.7 MG/DL (0.2-1.0); TOTAL IRON BINDING CAPACITY 445 MCG/DL (250-450); TOTAL PROTEIN 6.8 GM/DL (6.4-8.2)
[2017-06-24 17:32] LABS: GLUCOSE,RANDOM 9 MG/DL (74-106)
[2017-06-24] MEDS ORDERED: DEXTROSE 50% IN WATER 50 ML SYRINGE ONE (17:35)
[2017-06-24] MEDS ORDERED: DEXTROSE 50% IN WATER 50 ML VIAL(D50) IV PUSH ONE (17:45)
[2017-06-24] MEDS ORDERED: DEXT 5%-NACL 0.9% 1000 ML INJ 1,000 ML IV SCH (17:45)
[2017-06-24] MEDS ORDERED: SODIUM CHLOR 0.9% 1000 ML INJ 1,000 ML IV ONE (17:45)
[2017-06-24] MEDS ORDERED: CALCIUM GLUCONATE 10% 1 GM/10 ML VIAL SLOW IVP ONE (17:45)
[2017-06-24] MEDS ORDERED: SODIUM BICARBONATE 8.4% SOLN 50 MEQ/50 ML VIAL SLOW IVP ONE (17:45)
[2017-06-24 17:55] LABS: CHOLESTEROL/ HDL RATIO 5.61 RATIO; HDL CHOLESTEROL 21.9 MG/DL (40.0-60.0); LDL CHOLESTEROL 86 MG/DL (0-99)
[2017-06-24] MEDS ORDERED: MISCELLANEOUS NURSING INFORMATION XX SCH (18:00)
[2017-06-24] MEDS ORDERED: ACETAMINOPHEN 325 MG TAB PO PRN (18:00)
[2017-06-24] MEDS ORDERED: INSULIN HUMAN REGULAR 1,000 UNITS/10 ML VIAL IV PUSH ONE (18:00)
[2017-06-24] MEDS ORDERED: Vancomycin Consult Pharmacy 1 EA OTHER SCH (18:00)
[2017-06-24] MEDS ORDERED: ARTIFICIAL TEARS OPTH SOLN 15 ML BTL EACH EYE SCH (18:00)
--- NOTE | 2017-06-24 18:11 | MB ---
cc: Gianni Jeffers MD DATE OF CONSULT: 06/24/2017 HISTORY OF PRESENT ILLNESS: Caridad is a 57-year-old lady, difficult to arouse, sleeping in the CV ICU with a warming blanket on. History is obtained from the chart. Patient presented on 06/23/2017 with chief complaint of epigastric abdominal pain, nausea, vomiting, shortness of breath beginning 3 days prior to admission, sharp burning pain localized to the epigastric area. Also complains of diarrhea. PAST MEDICAL HISTORY: Includes atrial fibrillation. She has been on Xarelto, but stopped due to itching of the skin. History also includes transfusion for anemia, anxiety, GERD, tubal ligation. SOCIAL HISTORY: She smokes a pack of cigarettes a day. Denies alcohol use. ALLERGIES: SULFA, CIPROFLOXACIN, HYDROMORPHONE. MEDICATIONS PRIOR TO ADMISSION: Paroxetine, omeprazole. MEDICATIONS IN THE HOSPITAL: Albuterol, potassium supplementation, magnesium supplementation, sodium bicarb. PHYSICAL EXAMINATION: VITAL SIGNS: Pulse ranging between 46 and 49, blood pressure 123/71. GENERAL: The patient is asleep in no acute distress. NECK: Supple. No JVD, no bruit. CARDIOVASCULAR: S1, S2. No murmurs, rubs, gallops bilaterally. ABDOMEN: Soft, nontender, nondistended with positive bowel sounds. EXTREMITIES: No lower extremity edema. IMAGING: Chest x-ray shows bilateral hazy perihilar and bibasilar opacities of concern for pulmonary edema, which may be noncardiogenic. Abdomen and pelvis CT: Small bilateral effusion, no evidence for acute abdominal or pelvic process, cholelithiasis. Repeat chest x-ray today: Increasing bibasilar parenchymal changes. EKG shows sinus bradycardia at 44 bpm, T-wave inversion in I and II, possible lead reversal which I suspect because the previous EKG do not show Q waves in I and aVL. EKG on admission showed atrial fibrillation at a rate of 142 bpm. LABORATORY DATA: White count 7.2, hemoglobin 7.6, platelet count 203. Blood gas; pH 7.16, pCO2 of 32, pO2 of 102 on 2 L nasal cannula. Sodium 140, potassium 3.9, chloride 108, bicarb 18.4, BUN 14, creatinine 1.16, glucose 125. BNP is 381. Toxicology is positive for barbiturates. DIAGNOSES: 1. Atrial fibrillation with rapid ventricular response. 2. Sinus bradycardia. 3. Decompensated congestive heart failure. 4. Anemia. 5. Metabolic acidosis. 6. Elevated total bilirubin not equal to 1.1. DISCUSSION: At this point in time, the patient is in sinus bradycardia, I do not recommend any medications for rate control. AC is being held due to severe anemia. Recommended 2-D echo. Continue telemetry observation. Further recommendations based on trends in the heart rate, blood pressure, and echo findings. MD MARKIE Barroso/cc , 05:37 PM , 06:09 PM
--- NOTE | 2017-06-24 18:12 | RADRPT ---
EXAM DATE/TIME: 06/24/2017 18:00 [facility] COMPARISON: No previous studies available for comparison. INDICATIONS : Altered mental status RADIATION DOSE: 52.84 CTDIvol (mGy) MEDICAL HISTORY : Cardiovascular disease. Anemia SURGICAL HISTORY : Tubal ligation. ENCOUNTER: Initial ACUITY: 1 day PAIN SCALE: 3/10 LOCATION: cranial TECHNIQUE: Multiple contiguous axial images were obtained of the head. Using automated exposure control and adj ustment of the mA and/or kV according to patient size, radiation dose was kept as low as reasonably a chievable to obtain optimal diagnostic quality images. DICOM format image data is available electro nically for review and comparison. FINDINGS: CEREBRUM: The ventricles are normal for age. No evidence of midline shift, mass lesion, hemorrhage or acute in farction. No extra-axial fluid collections are seen. POSTERIOR FOSSA: The cerebellum and brainstem are intact. The 4th ventricle is midline. The cerebellopontine angle i s unremarkable. EXTRACRANIAL: The visualized portion of the orbits is intact. SKULL: The calvaria is intact. No evidence of skull fracture. CONCLUSION: No acute disease. Brian Burnett MD on June 24, 2017 at 18:10 Board Certified Radiologist. This report was verified electronically.
--- NOTE | 2017-06-24 18:39 | RADRPT ---
EXAM DATE/TIME: 06/24/2017 18:05 [facility] COMPARISON: CT ABDOMEN & PELVIS W CONTRAST, June 23, 2017, 19:25. INDICATIONS : Diffuse tenderness ORAL CONTRAST: No oral contrast ingested. RADIATION DOSE: 16.80 CTDIvol (mGy) MEDICAL HISTORY : Cardiovascular disease. Anemia SURGICAL HISTORY : Tubal ligation. ENCOUNTER: Initial ACUITY: 1 day PAIN SCALE: 3/10 LOCATION: Abdomen TECHNIQUE: Volumetric scanning of the abdomen and pelvis was performed. Using automated exposure control and ad justment of the mA and/or kV according to patient size, radiation dose was kept as low as reasonably achievable to obtain optimal diagnostic quality images. DICOM format image data is available electro nically for review and comparison. FINDINGS: There has been interval increase in the size of the pleural effusions which are now moderate on the r ight and small on the left. Bibasilar patchy consolidations are also noted (right worse than left) co nsistent with probable pneumonia. Some ascites is noted within the abdomen and pelvis. There is diffu se gallbladder wall thickening and vicarious excretion of contrast via the gallbladder. There are per ipheral perfusion defects throughout both kidneys raising possibility of decreased renal function or interval development of bilateral pyelonephritis. Clinical correlation is recommended. There is diffu se thickening of the wall of the descending colon raising possibility of acute colitis. A Ferguson gokul ter is noted within the urinary bladder. CONCLUSION: 1. Bibasilar patchy infiltrates (right worse than left) consistent with probable pneumonia. Clinical correlation is recommended. 2. Worsening pleural effusions which are moderate in size on the right and small on the left. 3. Diffuse peripheral perfusion defects involving the kidneys suggestive of decreased renal function or possible interval development of bilateral pyelonephritis. Clinical correlation is recommended. 4. Gallbladder wall thickening and vicarious excretion of contrast via the gallbladder. Clinical nani elation is recommended to rule out cholecystitis. 5. Interval development of ascites within the abdomen. 6. Thickening of the wall of the ascending colon raising possibility of colitis. Clinical correlation is recommended. Brian Burnett MD on June 24, 2017 at 18:30 Board Certified Radiologist. This report was verified electronically.
[2017-06-24] MEDS ORDERED: MIDAZOLAM HCL 5 MG/ML VIAL (1 ML) ONE (19:29)
[2017-06-24] MEDS ORDERED: ETOMIDATE 40 MG/20 ML VIAL IV PUSH ONE (19:30)
[2017-06-24] MEDS ORDERED: TERBUTALINE INJ 1 MG/ML AMP SQ PRN (19:30)
[2017-06-24] MEDS ORDERED: fentaNYL DRIP 250 ML IV PRN (19:30)
[2017-06-24] MEDS ORDERED: NOREPINEPHRINE-DEXTROSE DRIP 250 ML IV PRN (19:30)
[2017-06-24] MEDS ORDERED: MIDAZOLAM HCL 2 MG/2 ML VIAL IV PUSH ONE (19:30)
[2017-06-24] MEDS ORDERED: ROCURONIUM INJ 100 MG/10 ML VIAL IV ONE (19:30)
[2017-06-24] MEDS ORDERED: NOREPINEPHRINE-DEXTROSE DRIP 250 ML IV ONE (19:38)
[2017-06-24] MEDS: INSULIN NovoLIN REGULAR SUPPLEMENTAL SCALE SQ SCH (20:00)
[2017-06-24 20:26] LABS: HEMOGLOBIN A1C 5.2 % (4.3-6.0)
[2017-06-24] MEDS ORDERED: PROPOFOL 500 MG/50 ML INJ 50 ML ONE (20:28)
--- NOTE | 2017-06-24 20:42 | PD.PROCEDR ---
Procedure Note Procedure Endotracheal Intubation Diagnosis: Septic shock Indications: Patient with rapidly progressive septic shock with worsening endorgan function including worsening hypoxic respiratory failure and encephalopathy Consent: Verbal consent was obtained from the patient. Due to the emergent nature of the procedure, written consent was obtained Anesthesia: Versed 10 mg IV, rocuronium 100 mg IV Description of the Procedure: The patient was positioned in the sniffing position. Pre-oxygenation was performed using a nonrebreather mask. Anesthesia was induced via rapid sequence. A Pantoja #2 was used for laryngoscopy and a Grade I view was obtained. A 8.0 cuffed endotracheal tube was inserted atraumatically through the vocal cords. Confirmation of correct endotracheal tube placement was made by equal and bilateral breath sounds and colorimetric CO2 detection. The endotracheal tube was secured at 21 cm at the teeth. There were no immediate complications noted. The patient remained hemodynamically stable throughout the procedure. A chest x-ray has been ordered. I personally performed the procedure. Murali Osman MD Jun 24, 2017 20:42
--- NOTE | 2017-06-24 20:43 | PD.PROCEDR ---
Procedure Note Procedure Procedure: Arterial Line Placement Right radial arterial line Diagnosis: Septic shock Indications: Need for serial arterial blood gas sampling Consent: Emergent Description of the Procedure: The right wrist was prepped and draped sterilely. 1% lidocaine was used for local anesthesia. The pulse was located and a needle was advanced into the artery. A 20 gauge, 12 cm catheter was advanced into the artery using a modified Seldinger technique. The catheter was sutured to the skin and a sterile dressing was applied. The catheter was connected to a pressure transducer and an arterial waveform was noted. There were no immediate complications noted. There was minimal EBL. I personally performed the procedure. Murali Osman MD Jun 24, 2017 20:43
--- NOTE | 2017-06-24 20:44 | PD.PROCEDR ---
Procedure Note Procedure Central Line Procedure Note Right subclavian triple-lumen catheter Diagnosis: Septic shock Indications: Need for highly potent vasoactive substances Consent: Emergent Anesthesia: Propofol IV Description of the Procedure: The patient was placed in the supine, mild- Trendelenburg position. The area was prepped and draped sterilely. A 19g needle was inserted under negative pressure aspiration and dark venous blood was obtained. A guidewire was inserted easily without resistance. A small incision was made using a #11 blade. Using a modified Seldinger technique, the dilator and 7 Indonesian, 20 cm catheter were advanced over the guidewire without resistance. All ports were aspirated and flushed, and had brisk blood return. The line was secured at 16 cm at the skin using 2-0 silk interrupted sutures. A Biopatch and Transparent sterile dressing were applied. There were no immediate complications noted. There was minimal EBL. The patient tolerated the procedure well. Ultrasound guidance was not used for this procedure A Chest x-ray has been ordered. I personally performed the procedure. Murali Osman MD Jun 24, 2017 20:44
--- NOTE | 2017-06-24 20:49 | HHI.PR ---
Subjective Remarks re-evaluated patient this evening: worsening respiratory status. bp slightly lower. acidosis worse. tachypneic. in distress. also becoming encephalopathic from severe sepsis. emergently intubated (see separate procedure note for details). placed arterial and central lines (see procedure notes). discussed case with IR: plan for emergent cholecystostomy tube for likely cholecystitis with progressive severe sepsis. ordered vasopressors and fluid boluses. increased rate of bicarb. frequent re-evaluations. clinically declining. Very critically ill. Active problems: Septic Shock Lactic Acidosis Severe anion-gap metabolic acidosis Metabolic Encephalopathy Acute cholecystitis Acute hypoxic and hypercarbic respiratory failure Severe acute anemia- unclear source. Plan: - intubation - hyperventilate to maintain adequate pH - serial abg - trend lactates - ivf resuscitation - perc paty tube - vancomycin and zosyn - propofol for sedation - no weaning of ventilation - wean fio2 for goal spo2 > 90% - hgb 6.7 on recheck abg: in the setting of severe lactic acidosis and septic shock, will transfuse 1 unit prbc - send blood cultures. This patient remains critically ill with one or more organ systems which are or may become a threat to life. I have spent in excess of 62 minutes discontinuously in the care and management of this patient. This time is exclusive of procedures, and includes, but is not limited to, evaluation of the patient, review of the medical record, discussions with family, consultants, nursing staff, or respiratory therapy, and documentation in the medical record. Objective Vital Signs Date Time Temp Pulse Resp B/P (MAP) Pulse Ox O2 Delivery O2 Flow Rate FiO2 06/24/17 20:25 100 45 06/24/17 19:25 100 100 06/24/17 14:00 46 06/24/17 13:08 47 123/71 (88) 06/24/17 13:00 47 06/24/17 12:15 47 06/24/17 12:00 48 06/24/17 11:03 49 06/24/17 11:03 49 16 126/65 (85) 95 06/24/17 11:00 49 06/24/17 10:42 134/66 (88) 06/24/17 10:02 50 06/24/17 10:00 50 06/24/17 09:55 112/55 (74) 06/24/17 09:35 50 06/24/17 09:00 60 06/24/17 08:14 54 06/24/17 07:42 92 Nasal Cannula 2.00 06/24/17 07:30 55 17 108/57 (74) 95 06/24/17 07:15 60 06/24/17 06:00 59 06/24/17 05:45 61 17 106/61 (76) 97 06/24/17 05:00 58 06/24/17 04:00 58 06/24/17 04:00 98.4 60 17 99/60 (73) 97 06/24/17 03:20 61 18 94/56 (69) 96 06/24/17 03:00 60 17 77/51 (60) 98 06/24/17 03:00 60 06/24/17 02:00 55 06/24/17 02:00 55 81/51 06/24/17 02:00 55 17 81/51 (61) 97 06/24/17 01:00 78 06/24/17 01:00 108 20 110/76 (87) 97 06/24/17 01:00 108 110/76 06/24/17 00:24 128 06/24/17 00:24 138 128/75 06/24/17 00:24 06/24/17 00:24 98.1 138 17 128/75 (92) 97 06/23/17 23:00 120 18 146/70 (95) 96 Nasal Cannula 2.00 06/23/17 21:11 93 06/23/17 21:05 122 19 133/64 (87) 96 Nasal Cannula 2.00 I/O 06/23/17 06/23/17 06/23/17 06/24/17 06/24/17 06/24/17 07:00 15:00 23:00 07:00 15:00 23:00 Intake Total 470 ml 1036 ml Output Total 400 ml Balance 70 ml 1036 ml Intake Oral 0 ml IV Total 470 ml 1036 ml Output Urine Total 400 ml # Bowel Movements 3 Result Diagram: 06/24/17 1431 06/24/17 1650 Murali Osman MD Jun 24, 2017 20:49
--- NOTE | 2017-06-24 20:59 | RADRPT ---
EXAM DATE/TIME: 06/24/2017 20:31 [facility] COMPARISON: CHEST SINGLE AP, June 24, 2017, 14:37. INDICATIONS : Central line placement. MEDICAL HISTORY : None. SURGICAL HISTORY : None. ENCOUNTER: Initial ACUITY: 1 day PAIN SCORE: Non-responsive. LOCATION: Bilateral chest FINDINGS: Right subclavian central line has its tip in super vena cava. There is no pneumothorax. The heart is enlarged. Patchy infiltrates are again noted which are slightly worse on the right consistent with pn eumonia or asymmetric pulmonary edema. Endotracheal tube has its tip in good position 3 cm above the ricky. CONCLUSION: 1. Right subclavian central line has its tip in super vena cava. No pneumothorax is noted. 2. Persistent patchy infiltrates bilaterally slightly worse on the right and consistent with asymmetr ic pulmonary edema or pneumonia. Clinical correlation is recommended. Brian Burnett MD on June 24, 2017 at 20:56 Board Certified Radiologist. This report was verified electronically.
[2017-06-24] MEDS ORDERED: VANCOMYCIN INJ 1,250 MG in SODIUM CHLOR 0.9% 250 ML INJ 250 ML IV ONE (21:00)
[2017-06-24] MEDS ORDERED: RASS Change Order XX ONE (21:00)
[2017-06-24] MEDS ORDERED: METOPROLOL TARTRATE 25 MG TAB PO SCH (21:00)
--- NOTE | 2017-06-24 21:43 | PD.RAD ---
Post Procedure Progress Note Pre Procedure Diagnosis: (1) Cholecystitis Post Procedure Diagnosis: (1) Cholecystitis Procedure Date: Jun 24, 2017 Supervising Radiologist: Lalo Wong Proceduralist/Assist: RT Pete(R), RT Mikie(R) Anesthesia: Local Plan of Activity Patient to Unit: Critical Care Patient Condition: Poor See PACS Report for procedural detail/treatment Drainage Procedure Procedure 1 Imaging Guidance: Fluoroscopy Procedure Type: Cholecystostomy Procedure: Placement English: 8 Drainage: [place] drainage Fluid Description: Other (black and viscous) Lalo Wong MD Jun 24, 2017 21:43
[2017-06-24] MEDS ORDERED: IOHEXOL 350 MG/ML 50 ML BTL (for RAD DIAG) OTHER ONE (21:52)
[2017-06-24] MEDS: PIPERACIL-TAZO 3.375 GM PREMIX 50 ML IV SCH (22:37)
[2017-06-24] MEDS: CHLORHEXIDINE 0.12% (ORAL KIT) 15 ML CUP MT SCH (22:40)
[2017-06-24] MEDS: PANTOPRAZOLE SODIUM 40 MG VIAL IV PUSH SCH (22:44)
[2017-06-24] MEDS: DOCUSATE SODIUM 50 MG/SENNA 8.6 MG TAB PO SCH (23:21)
[2017-06-24] MEDS: PROPOFOL 1000 MG/100 ML INJ 100 ML IV PRN (23:25)
[2017-06-24 23:30] LABS: HEMATOCRIT 26.3 % (35.0-46.0); HEMOGLOBIN 8.1 GM/DL (11.6-15.3)
[2017-06-24 23:50] LABS: ACETAMINOPHEN LESS THAN 2.0 MCG/ML (10.0-30.0); MAGNESIUM 1.6 MG/DL (1.5-2.5); PHOSPHORUS 4.8 MG/DL (2.5-4.9)
[2017-06-24 23:51] LABS: INTERNATIONAL NORMALIZED RATIO 1.9 RATIO; PROTHROMBIN TIME - PATIENT 19.6 SEC (9.8-11.6)
[2017-06-25] VITALS (18 sets, daily range): BP systolic 94–124; BP diastolic 59–76; PULSE 97–130; RESP 14–19; TEMP 98–99.1; O2SAT 92–99
[2017-06-25] MEDS: POTASSIUM CHLOR 40 MEQ PREMIX 100 ML IV PRN ×2 (00:28→02:34)
[2017-06-25] MEDS: RESP: ALBUTEROL 2.5 MG/IPRATROPIUM 0.5 MG NEB (SCH) INH ×5 (00:32→20:23)
[2017-06-25] MEDS: SODIUM CHLOR 0.9% 1000 ML INJ 1,000 ML IV SCH ×5 (00:34→17:13)
[2017-06-25 01:05] LABS: TROPONIN I 0.08 NG/ML (0.02-0.05)
[2017-06-25] MEDS: SODIUM BICARBONATE 8.4% INJ 150 MEQ in WATER STERILE FOR INJ 850 ML IV SCH ×2 (02:00→10:14)
[2017-06-25] MEDS: ARTIFICIAL TEARS OPTH SOLN 15 ML BTL EACH EYE SCH ×4 (02:00→22:18)
[2017-06-25] MEDS: PIPERACIL-TAZO 3.375 GM PREMIX 50 ML IV SCH ×4 (02:02→20:17)
[2017-06-25] MEDS: CHLORHEXIDINE GLUCONATE 2 % 1 PACK (2 CLOTHS) TOP SCH (04:00)
[2017-06-25] MEDS: INSULIN NovoLIN REGULAR SUPPLEMENTAL SCALE SQ SCH ×6 (04:00→20:00)
[2017-06-25 04:40] LABS: AUTOMATED NEUTROPHIL # 4.9 TH/MM3 (1.8-7.7); BASOPHIL % 0.1 % (0.0-2.0); EOSINOPHIL % 0.1 % (0.0-4.0); HEMATOCRIT 26.1 % (35.0-46.0); HEMOGLOBIN 8.2 GM/DL (11.6-15.3); LYMPH % 11.6 % (9.0-44.0); LYMPHOCYTE # 0.7 TH/MM3 (1.0-4.8); MEAN CELL VOLUME 71.1 FL (80.0-100.0); MEAN CORPUSCULAR HEMOGLOBIN 22.4 PG (27.0-34.0); MEAN CORPUSCULAR HGB CONC 31.5 % (32.0-36.0); MEAN PLATELET VOLUME 8.4 FL (7.0-11.0); MONO % 5.5 % (0.0-8.0); MONOCYTE # 0.3 TH/MM3 (0-0.9); NEUT % 82.7 % (16.0-70.0); PLATELET COUNT 144 TH/MM3 (150-450); RED BLOOD COUNT 3.68 MIL/MM3 (4.00-5.30); RED CELL DISTRIBUTION WIDTH 21.2 % (11.6-17.2); WHITE BLOOD COUNT 5.9 TH/MM3 (4.0-11.0)
--- NOTE | 2017-06-25 04:56 | RADRPT ---
EXAM DATE/TIME: 06/25/2017 03:58 [facility] COMPARISON: CT ABDOMEN & PELVIS W/O CONTRAST, June 24, 2017, 18:05. CHEST SINGLE AP, June 24, 2017, 20:3 1. INDICATIONS : Shortness of breath, possible pulmonary disease. MEDICAL HISTORY : Cardiovascular disease. Anemia SURGICAL HISTORY : Tubal ligation. ENCOUNTER: Subsequent ACUITY: 2 days PAIN SCORE: Non-responsive. LOCATION: Bilateral chest FINDINGS: Stable ETT and right subclavian central line. Interval placement of NGT coiled in the stomach. A prog ressing bilateral hazy opacities with lower lung zone airspace disease. Cardiomediastinal contours ar e stable. Remainder of the exam is unchanged. CONCLUSION: 1. Stable tubes and lines. NGT in the stomach. 2. Worsening bilateral lower lung zone airspace disease and associated right > left small pleural eff usions. Akira Cullen MD on June 25, 2017 at 4:53 Board Certified Radiologist. This report was verified electronically.
[2017-06-25 05:13] LABS: ALBUMIN 2.6 GM/DL (3.4-5.0); ALT (GPT) 43 U/L (10-53); AST (GOT) 104 U/L (15-37); BICARBONATE 23.7 MEQ/L (21.0-32.0); BLOOD UREA NITROGEN 32 MG/DL (7-18); CALCIUM 7.6 MG/DL (8.5-10.1); CHLORIDE 108 MEQ/L (98-107); CREATININE 1.49 MG/DL (0.50-1.00); GLOMERULAR FILTRATION RATE 36 ML/MIN (>89); GLUCOSE,RANDOM 96 MG/DL (74-106); MAGNESIUM 1.6 MG/DL (1.5-2.5); PHOSPHORUS 3.9 MG/DL (2.5-4.9); SODIUM (NA) 143 MEQ/L (136-145)
[2017-06-25 05:24] LABS: ALKALINE PHOSPHATASE 94 U/L (45-117); RANDOM VANCOMYCIN 14.5 COMMENT; TOTAL PROTEIN 5.7 GM/DL (6.4-8.2); TROPONIN I 0.05 NG/ML (0.02-0.05)
[2017-06-25] MEDS: HEPARIN SODIUM - SQ 10,000 UNITS/ML VIAL SQ SCH ×3 (06:00→20:18)
--- NOTE | 2017-06-25 07:33 | HHI.CCPN ---
Subjective Remarks/Hospital Course 57-year-old female. Date of admission 06/23/2017. Date of consultation 2017. Past medical history includes Patient originally presented to [facility] ED in atrial fibrillation with rapid ventricular response. Patient was initially started on a diltiazem drip and then was switched over to metoprolol tartrate 50 mg every 8 hours. After conversion, patient became bradycardic. CT abdomen/pelvis revealed a 1 mm gallstone without signs of cholecystitis. Otherwise unremarkable. The patient became more somnolent on the floor and bradycardic with heart rates as low as 42. EKG revealed sinus bradycardia with a first-degree AV block. Patient was arousable and with good pain in 1-2 word responses but fell asleep immediately. On examination patient did have pain especially in her right upper quadrant. CBC revealed hemoglobin 8.4. Ammonia level 35. BNP of 341. Remainder of laboratories are currently pending. Chest x-ray revealed right lower lobe infiltrate versus effusion. Patient did receive 60 mg total of furosemide within the past 24 hours. Subjective 06/25: Afebrile. Status post percutaneous cholecystostomy tube yesterday with aggressive crystalloid resuscitation. Currently resting in bed in no acute distress. Not on vasopressors. Objective Vital Signs Date Time Temp Pulse Resp B/P (MAP) Pulse Ox O2 Delivery O2 Flow Rate FiO2 06/25/17 04:49 97 06/25/17 04:00 50 06/25/17 03:47 98.6 18 101/67 (78) 97 118/70 (86) 06/24/17 07:42 Nasal Cannula 2.00 Intake and Output 06/25/17 06/25/17 06/25/17 07:59 15:59 23:59 Intake Total 4492 ml Output Total 525 ml Balance 3967 ml Result Diagram: 06/25/17 0420 06/25/17 0420 Other Results Microbiology Date/Time Source Procedure Growth Status 06/24/17 20:19 Blood Peripheral Aerobic Blood Culture Pending Received 06/24/17 20:19 Blood Peripheral Anaerobic Blood Culture Pending Received 06/25/17 08:00 Fluid Bile Fluid Gram Stain Pending Received 06/25/17 08:00 Fluid Bile Fluid Body Fluid Culture Pending Received 06/25/17 00:54 Sputum Expectorated Sputum Gram Stain Pending Received 06/25/17 00:54 Sputum Expectorated Sputum Sputum Culture Pending Received 06/25/17 01:25 Urine Catheterized Urine Legionella Antigen Pending Received 06/25/17 01:25 Urine Catheterized Urine Streptococcus pneumoniae Antigen (M Pending Received Imaging Last Impressions Chest X-Ray 06/25/17 0000 Signed Impressions: Service Date/Time: June 03:58 - CONCLUSION: 1. Stable tubes and lines. NGT in the stomach. 2. Worsening bilateral lower lung zone airspace disease and associated right > left small pleural effusions. Akira Cullen MD Head CT 06/24/17 1645 Signed Impressions: Service Date/Time: Saturday, June 24, 2017 18:00 - CONCLUSION: No acute disease. Brian Burnett MD Percutaneous Cholangiogram 06/24/17 0000 Signed Impressions: Service Date/Time: Saturday, June 24, 2017 20:36 - CONCLUSION: Uncomplicated percutaneous cholecystostomy as above. Lalo Wong MD Abdomen/Pelvis CT 06/24/17 0000 Signed Impressions: Service Date/Time: Saturday, June 24, 2017 18:05 - CONCLUSION: 1. Bibasilar patchy infiltrates (right worse than left) consistent with probable pneumonia. Clinical correlation is recommended. 2. Worsening pleural effusions which are moderate in size on the right and small on the left. 3. Diffuse peripheral perfusion defects involving the kidneys suggestive of decreased renal function or possible interval development of bilateral pyelonephritis. Clinical correlation is recommended. 4. Gallbladder wall thickening and vicarious excretion of contrast via the gallbladder. Clinical correlation is recommended to rule out cholecystitis. 5. Interval development of ascites within the abdomen. 6. Thickening of the wall of the ascending colon raising possibility of colitis. Clinical correlation is recommended. Brian Burnett MD Objective Remarks GENERAL: 57-year-old female currently orotracheally intubated SKIN: Warm and dry. No rash. Well perfused HEAD: Atraumatic. Normocephalic. EYES: Pupils equal and round about 2 mm bilaterally and brisk. No scleral icterus. No injection or drainage. ENT: No nasal bleeding or discharge. Mucous membranes pink and moist. NECK: Trachea midline. No JVD. CARDIOVASCULAR: RRR. S1, S2. No S4. Without murmur RESPIRATORY: Miss breath sounds in the bases bilaterally. No wheezing GASTROINTESTINAL: Abdomen soft, tender to palpation in the right upper quadrant and epigastric region. Cholecystostomy tube in place -40 cc brown output hypoactive bowel sounds are present MUSCULOSKELETAL: Extremities with trace lower extremity peripheral edema. No obvious deformities. 1+ edema right upper extremity NEUROLOGICAL: Arousable on the ventilator falsely. Withdraws to pain in all 4 extremities. Urinary Catheter: Yes Assessment to: Continue Ferguson insert reason: Prolonged Immobilization Vascular Central Line Catheter: Yes Assessment to: Continue Date of Insertion: Jun 24, 2017 Line: Central Venous Catheter Side: Right Location: Subclavian A/P Assessment and Plan Neuro/Psych: Acute encephalopathy likely toxic metabolic UDS positive for barbiturates Depression/anxiety Currently on propofol drip at 30 mcg/kg/min for sedation while intubated with fentanyl drip as well needed Goal of RASS -2 Daily sedation vacation Acetaminophen 650 mg by tube. every 6 hours as needed fever/pain CT brain 06/24 revealed no acute intracranial findings EEG ordered Neurochecks Holding paroxetine unknown dosage daily home medication CV: Atrial fibrillation with RVR currently in sinus tachycardia History of atrial fibrillation Hypertension Elevated BNP 335 Lactic acidosis of 11 currently less than 3 EKG reveals sinus bradycardia with first-degree AV block. Admission was A. fib with RVR. Currently normal sinus rhythm Cardiac markers troponin 0.05 2D echocardiogram ordered Cardiology consult by [facility] with Dr. Jeffers Serial lactate every 6 hours until clear. Currently less than 3. Source possibly due to acute cholecystitis versus pyelonephritis. CVP is 16 Resp: Acute respiratory insufficiency Right lower lobe infiltrate/pleural effusion PRVC 18/500/1.1//45 Ventilator bundle Albuterol/ipratropium aerosols every 6 hours with albuterol aerosols every 2 hours as needed for dyspnea Spontaneous breathing trials when clinically indicated Chest x-ray revealed possible right lower lobe infiltrate versus effusion GI: Epigastric/right upper quadrant pain Gastroesophageal reflux disease Elevated ammonia level 35 Cholelithiasis on ultrasound 06/23 possibly acute cholecystitis Hypoalbuminemia CT abdomen/pelvis 06/23 revealed a 1 mm gallstone. No signs of cholecystitis. Otherwise unremarkable CT abdomen/pelvis 06/24 revealed right greater than left pleural effusions. Gallbladder wall thickening with voracious dye excretion, descending colon edema and bilateral perinephric stranding Status post cholecystostomy tube by IR 06/24 We will consult general surgery for evaluation. Previously patient has been on omeprazole 40 mg p.o. daily. Currently on pantoprazole 40 mg IV. daily for gastroesophageal reflux disease Docusate sodium/senna 1 tablet twice daily for bowel regimen Lactulose 30 cc daily for elevated ammonia : Ferguson catheter has been placed for accurate I's and O's and critical patient Endo: Acute hypoglycemia likely secondary to sepsis resolved Sliding-scale insulin Novulin R with Accu-Cheks every 4 hours to maintain euglycemia/low regimen Check TSH -1.76 Renal: Acute kidney injury Did receive IV contrast yesterday. Pending urine eosinophils and urine electrolytes likely prerenal indices by Janet No signs of hydronephrosis on CT abdomen/pelvis 06/23. Stranding noted around bilateral kidneys 06/24. Medical renal disease versus pyelonephritis Creatinine slowly downward trending Heme: Microcytic hypochromic anemia Thrombocytopenia Elevated INR with low fibrinogen likely early DIC We will need iron studies and Hemoccult test done during this hospitalization Self-reported negative EGD/colonoscopy in the past per prior record Transfuse 1 unit PRBCs overnight. Will give 1 FFP and 1 cryo and 10 mg of vitamin K today. Recheck coags in a.m. Recheck CBC this afternoon ID: Severe sepsis likely gallbladder source plus/minus UA Started on ampicillin/tazobactam with vancomycin day #2. Pertinent cultures / -sputum -pending 06/24 -blood cultures 4 -pending 06/24 -urine -pending Urine Legionella pneumococcal antigens pending. Influenza negative MSK: PT evaluate and treat FEN: Hypomagnesia Replace electrolytes as clinically indicated per ICU Y protocol Access -Utilized peripheral IV. Central and if indicated Prophylaxis -GI -pantoprazole -DVT -SCDs/withholding pharmacological prophylaxis until after CT brain completed Critical Care: The total critical care time was 35 minutes. Time to perform other separately billable procedures was not included in the critical care time. Guillermo Pratt MD Jun 25, 2017 07:33
[2017-06-25] MEDS: PROPOFOL 1000 MG/100 ML INJ 100 ML IV PRN ×3 (07:53→20:43)
[2017-06-25] MEDS: CHLORHEXIDINE 0.12% (ORAL KIT) 15 ML CUP MT SCH ×2 (07:54→20:17)
--- NOTE | 2017-06-25 08:05 | RADRPT ---
EXAM DATE/TIME: 06/24/2017 20:36 [facility] COMPARISON: No previous studies available for comparison. INDICATIONS : Patient presents with cholecystitis in need of cholecystostomy tube placement for drainage. MEDICAL HISTORY : Atrial fibrillation Anxiety GERD SURGICAL HISTORY : Tubal ligation ENCOUNTER: Initial ACUITY: 1 day PAIN SCORE: 0/10 LOCATION: N/A FLUORO TIME: 2.0 minutes IMAGE SERIES: 1 CONTRAST: 5 cc Omnipaque (iohexol) 350 DEVICE(S): 1.) 6 Bengali 30cm locking ekaterina PROCEDURE : 1. Ultrasound guided puncture of the gallbladder. 2. Percutaneous cholangiogram. 3. Percutaneous cholecystostomy tube placement. 4. Conscious sedation with continuous EKG and oximetry monitoring. The risks, benefits and alternatives to the procedure were explained and verbal and written consent w as obtained. The site was prepped in sterile fashion. Full sterile technique was used, including ca p, mask, sterile gloves and gown and a large sterile sheet. Hand hygiene and 2% chlorhexidine and/or betadine/alcohol prep was utilized per protocol for cutaneous antisepsis. Sterile gel and sterile p robe cover were utilized for ultrasound guidance. The skin and subcutaneous tissues were infiltrated with local anesthetic solution. With ultrasound and fluoroscopic guidance the gallbladder was punctured with a micropuncture set and a 4 Bengali dilator was placed. Injection of positive contrast demonstrates position within the gallb ladder. A 0.035 guidewire was placed within the gallbladder lumen and dilatation was performed to ac cept the prescribed catheter. Conscious sedation was performed with the prescribed dosages and duration as above in the presence of an independent trained radiology nurse to assist in the monitoring of the patient. EKG and oximetry remained stable throughout the procedure. The patient tolerated the procedure well and there were n o complications. The patient was sent to post anesthesia recovery in stable condition. CONCLUSION: Uncomplicated percutaneous cholecystostomy as above. Lalo Wong MD on June 25, 2017 at 8:01 Board Certified Radiologist. This report was verified electronically.
[2017-06-25] MEDS: SODIUM CHLORIDE 0.9% FLUSH 10 ML FLUSH IV FLUSH SCH ×2 (08:06→20:18)
[2017-06-25] MEDS: DOCUSATE SODIUM 50 MG/SENNA 8.6 MG TAB PO SCH ×2 (08:09→20:18)
[2017-06-25 08:32] LABS: OVALOCYTES 1+ (NORMAL)
[2017-06-25] MEDS ORDERED: ALBUMIN 5% INJ 250 ML IV ONE (08:45)
[2017-06-25] MEDS ORDERED: PHYTONADIONE INJ 10 MG in SODIUM CHLORIDE 0.9% INJ 50 ML IV ONE (09:00)
--- NOTE | 2017-06-25 11:31 | EKG ---
Date Performed: 06/24/2017 Time Performed: 15:02:20 PTAGE: 57 years EKG: Sinus bradycardia with borderline 1st degree A-V block --- Suspect arm lead reversal - only aVF, V1-V6 analyzed --- Borderline ECG PREVIOUS TRACING : 06/23/2017 16.19 When compared to the prior EKG, patient is now in a bradyca rdia. DOCTOR: Liz Maddox Interpretating Date/Time 06/25/2017 11:29:25
--- NOTE | 2017-06-25 11:32 | PD.CONS ---
HPI Service General Surgery Consult Requested By Dr. Pratt Reason for Consult septic shock, acute cholecystitis s/p cholecystostomy tube Primary Care Physician Non-Staff History of Present Illness 57 yo F presented with epigastric pain and shortness of breath 2 days ago. Yesterday she had severe decompensation and required intubation, resuscitation, and vasopressors. A CT of the abdomen and pelvis was repeated yesterday showing thick-walled gallbladder, thickening of the ascending colon, moderate right and small left pleural effusions, possible bilateral pyelonephritis. She was reportedly severely tender in the right upper abdomen. A cholecystostomy tube was placed by interventional radiology. She has had significant improvement overnight. Lactic acid yesterday was 11 and now is down to 2.4. She has had mild elevation of the bilirubin from 1.1 on admission to 2.7 and now 2.0 this morning. She was anemic on admission. History obtained from EMR as she is intubated and sedated. Review of Systems ROS Limitations: Intubated Past Family Social History Past Medical History Atrial fib (stopped xarelto three weeks ago) GERD Anemia Past Surgical History Tubal ligation Reported Medications Reported Meds & Active Scripts Active Reported Paroxetine (Paroxetine HCl) Unknown Strength Tab Unknown Dose PO DAILY Omeprazole Unknown Strength Tab Unknown Dose PO DAILY Allergies: Coded Allergies: Sulfa (Sulfonamide Antibiotics) (Verified Allergy, Unknown, 06/23/17) ciprofloxacin (Verified Allergy, Unknown, 06/23/17) hydromorphone (Verified Allergy, Unknown, 06/23/17) Active Ordered Medications Current Medications Medications (Trade) Dose Ordered Sig/Salud Route Start Time Stop Time Status Last Admin (Narcan Inj) 0.4 mg UNSCH PRN IV PUSH 06/23/17 20:30 (Vistaril) 25 mg Q6H PRN PO 06/23/17 23:30 Sodium Bicarbonate 150 meq/Sterile Water 1,000 ml @ 75 mls/hr [id number] IV 06/24/17 16:00 06/26/17 07:00 06/25/17 10:14 Potassium Chloride 100 ml @ 25 mls/hr Q2H PRN IV 06/24/17 17:00 06/25/17 02:34 Potassium Chloride 100 ml @ 50 mls/hr Q2H PRN IV 06/24/17 17:00 (K-Lyte Cl Eff) 50 meq UNSCH PRN PO 06/24/17 17:00 Potassium Chloride 100 ml @ 25 mls/hr UNSCH PRN IV 06/24/17 17:00 Potassium Chloride 100 ml @ 50 mls/hr Q2H PRN IV 06/24/17 17:00 Magnesium Sulfate 4 gm/Sodium Chloride 100 ml @ 50 mls/hr UNSCH PRN IV 06/24/17 17:00 (Mag-Ox) 800 mg UNSCH PRN PO 06/24/17 17:00 Magnesium Sulfate 2 gm/Sodium Chloride 100 ml @ 50 mls/hr UNSCH PRN IV 06/24/17 17:00 06/25/17 07:53 (K-Phos) 2,000 mg Q4H PRN PO 06/24/17 17:00 Sodium Phosphate 30 mmol/Sodium Chloride 250 ml @ 42 mls/hr UNSCH PRN IV 06/24/17 17:00 (K-Phos) 2,000 mg UNSCH PRN PO/TUBE 06/24/17 17:00 Potassium Phosphate 30 mmol/ Sodium Chloride 260 ml @ 42 mls/hr UNSCH PRN IV 06/24/17 17:00 (D50w (Vial) Inj) 50 ml UNSCH PRN IV PUSH 06/24/17 17:00 (Glucagon Inj) 1 mg UNSCH PRN OTHER 06/24/17 17:00 (NS Flush) 2 ml UNSCH PRN IV FLUSH 06/24/17 17:00 (NS Flush) 2 ml BID IV FLUSH 06/24/17 21:00 06/24/17 22:40 (Zofran Inj) 4 mg Q6H PRN IV PUSH 06/24/17 17:00 (Duoneb Neb) 1 ampule Q6HR NEB INH 06/24/17 22:00 06/25/17 08:14 (Albuterol Neb) 2.5 mg Q2HR NEB PRN INH 06/24/17 17:00 Miscellaneous Information 1 Q361D XX 06/24/17 18:00 (Chlorhexidine 2% Cloth) 3 pack Taper DAILY@04 TOP 06/25/17 04:00 2/25/19 03:59 06/25/17 04:00 (Chlorhexidine 2% Cloth) 3 pack UNSCH PRN TOP 06/24/17 17:00 (Keiry-Colace) 1 tab BID PO 06/24/17 21:00 06/25/17 08:09 (Milk Of Magnesia Liq) 30 ml Q12H PRN PO 06/24/17 17:00 (Senokot) 17.2 mg Q12H PRN PO 06/24/17 17:00 (Dulcolax Supp) 10 mg DAILY PRN RECTAL 06/24/17 17:00 (Lactulose Liq) 30 ml DAILY PRN PO 06/24/17 17:00 Piperacillin Sod/ Tazobactam Sod 50 ml @ 100 mls/hr Q6H IV 06/24/17 20:00 06/25/17 08:09 Pharmacy Profile Note 0 ml @ 0 mls/hr UNSCH OTHER 06/24/17 18:00 (Peridex 0.12% Liq) 15 ml BID@08,20 MT 06/24/17 20:00 06/25/17 07:54 Propofol 100 ml @ 2.13 mls/hr TITRATE PRN IV 06/24/17 19:30 06/25/17 07:53 Fentanyl Citrate 250 ml @ 5 mls/hr TITRATE PRN IV 06/24/17 19:30 Norepinephrine Bitartrate 250 ml @ 7.5 mls/hr TITRATE PRN IV 06/24/17 19:30 (Brethine Inj) 1 mg UNSCH PRN SQ 06/24/17 19:30 (Tears Naturale Opth Soln) 1 drop Q8HR EACH EYE 06/24/17 22:00 06/25/17 06:00 (NovoLIN R SUPPLEMENTAL SCALE) 1 Q4HR SQ 06/24/17 20:00 (Protonix Inj) 40 mg Q24H IV PUSH 06/24/17 20:00 06/24/17 22:44 (Heparin Inj) 5,000 units Q12HR SQ 06/25/17 07:00 06/25/17 08:09 Sodium Chloride 1,000 ml @ 150 mls/hr Q6H40M IV 06/24/17 20:15 06/25/17 10:31 (Tylenol 650 Mg/ 20 ml Liq) 650 mg Q6H PRN NG 06/25/17 08:45 Vancomycin HCl 1500 mg/Sodium Chloride 515 ml @ 250 mls/hr Q24H IV 06/25/17 12:00 Miscellaneous Information SPECIFIC LAB TO BE DRAWN:VANCOMYCIN TROUGH DATE TO... ONCE ONCE .XX 06/27/17 11:45 06/27/17 11:46 Family History Noncontributory Social History Smokes 1ppd tobacco. No ETOH or drug abuse. Physical Exam Vital Signs Vital Signs Date Time Temp Pulse Resp B/P (MAP) Pulse Ox O2 Delivery O2 Flow Rate FiO2 06/25/17 10:48 98.1 100 17 107/65 97 06/25/17 10:29 95 50 06/25/17 10:10 98.5 113 18 103/64 97 06/25/17 09:30 98.6 108 19 124/67 99 06/25/17 08:10 92 45 06/25/17 08:00 45 06/25/17 07:00 98.9 116 19 110/76 (87) 93 106/75 (85) 06/25/17 07:00 104 06/25/17 04:49 97 06/25/17 04:00 50 06/25/17 03:47 98.6 109 18 101/67 (78) 97 118/70 (86) 06/25/17 03:21 99 45 06/25/17 01:59 98.4 06/25/17 00:25 97 50 06/24/17 23:00 112 06/24/17 23:00 94.7 100 18 116/82 (93) 97 143/78 (99) 06/24/17 22:15 94.5 103 18 103/76 90 06/24/17 22:00 100 100 06/24/17 21:05 100 100 06/24/17 21:01 94.0 116 18 94 06/24/17 20:25 100 45 06/24/17 20:00 100 06/24/17 19:25 100 100 06/24/17 19:05 94.8 64 18 118/67 (84) 94 06/24/17 19:00 61 06/24/17 14:00 46 06/24/17 13:08 47 123/71 (88) 06/24/17 13:00 47 06/24/17 12:15 47 06/24/17 12:00 48 Physical Exam GENERAL: Intubated and sedated. Critically ill. HEAD: Normocephalic. Atraumatic. EYES: Pupils equal round and reactive to light bilaterally. No scleral icterus. ENT: ET tube in place. Orogastric tube in place. NECK: Trachea midline. CHEST: 50% FiO2 ventilation CARDIOVASCULAR: Heart rate in 110s ABDOMEN: cholecystostomy tube RUQ to drainage greenish orange bilious output, ? fullness and tenderness RUQ, nondistended, soft SKIN: Warm, dry, appears jaundiced Laboratory Laboratory Tests Test 06/24/17 13:58 06/24/17 14:30 06/24/17 14:31 06/24/17 16:50 Blood Gas Puncture Site RT RADIAL Blood Gas Patient Temperature 98.6 Blood Gas HCO3 11 Blood Gas Base Excess -16.0 Blood Gas Oxygen Saturation 92 Arterial Blood pH 7.16 Arterial Blood Partial Pressure CO2 32 Arterial Blood Partial Pressure O2 102 Arterial Blood Oxygen Content 10.6 Arterial Blood Carboxyhemoglobin 1.9 Arterial Blood Methemoglobin 1.3 Blood Gas Hemoglobin 8.1 Oxygen Delivery Device NASAL CANNULA Blood Gas Liter Flow 2 Urine Color YELLOW Urine Turbidity HAZY Urine pH 5.5 Urine Specific [place] GREATER THAN 1.050 Urine Protein 300 Urine Glucose (UA) NEG Urine Ketones TRACE Urine Occult Blood NEG Urine Nitrite NEG Urine Bilirubin NEG Urine Urobilinogen LESS THAN 2.0 Urine Leukocyte Esterase NEG Urine RBC 1 Urine WBC 7 Urine Squamous Epithelial Cells 1 Urine Bacteria OCC Urine Mucus MANY Microscopic Urinalysis Comment CATH-CULTURE IND Urine Random Creatinine 129.8 Urine Random Sodium 13 Urine Random Potassium 51 Urine Random Chloride LESS THAN 10 Urine Opiates Screen NEG Urine Barbiturates Screen POS Urine Amphetamines Screen NEG Urine Benzodiazepines Screen NEG Urine Cocaine Screen NEG Urine Cannabinoids Screen NEG White Blood Count 7.2 Red Blood Count 4.10 Hemoglobin 8.6 Hematocrit 30.6 Mean Corpuscular Volume 74.7 Mean Corpuscular Hemoglobin 20.9 Mean Corpuscular Hemoglobin Concent 28.0 Red Cell Distribution Width 22.3 Platelet Count 203 Mean Platelet Volume 8.9 Neutrophils (%) (Auto) 82.5 Lymphocytes (%) (Auto) 9.0 Monocytes (%) (Auto) 8.1 Eosinophils (%) (Auto) 0.1 Basophils (%) (Auto) 0.3 Neutrophils # (Auto) 6.0 Lymphocytes # (Auto) 0.6 Monocytes # (Auto) 0.6 Eosinophils # (Auto) 0.0 Basophils # (Auto) 0.0 CBC Comment AUTO DIFF Differential Comment AUTO DIFF CONFIRMED Platelet Estimate NORMAL Platelet Morphology Comment ENLARGED Ammonia 35 B-Type Natriuretic Peptide 342 Blood Urea Nitrogen 23 Creatinine 1.77 Random Glucose 9 Total Protein 6.8 Albumin 3.2 Calcium Level 9.2 Alkaline Phosphatase 118 Aspartate Amino Transf (AST/SGOT) 79 Alanine Aminotransferase (ALT/SGPT) 30 Total Bilirubin 2.7 Direct Bilirubin 1.2 Sodium Level 139 Potassium Level 5.4 Chloride Level 105 Carbon Dioxide Level 15.4 Anion Gap 19 Estimat Glomerular Filtration Rate 29 Hemoglobin A1c 5.2 Lactic Acid Level 11.0 Iron Level 16 Total Iron Binding Capacity 445 Percent Iron Saturation 3.6 Ferritin 52 Indirect Bilirubin 1.5 Total Creatine Kinase 39 C-Reactive Protein 3.70 Triglycerides Level 76 Cholesterol Level 123 LDL Cholesterol 86 HDL Cholesterol 21.9 Cholesterol/HDL Ratio 5.61 Amylase Level 36 Lipase 73 Vitamin B12 Level 995 Test 06/24/17 20:06 06/24/17 23:11 06/24/17 23:56 06/25/17 01:25 Blood Gas Puncture Site ART LINE Blood Gas Patient Temperature 98.6 Blood Gas HCO3 14 Blood Gas Base Excess -10.7 Blood Gas Oxygen Saturation 97 Arterial Blood pH 7.31 Arterial Blood Partial Pressure CO2 29 Arterial Blood Partial Pressure O2 226 Arterial Blood Oxygen Content 8.9 Arterial Blood Carboxyhemoglobin 2.0 Arterial Blood Methemoglobin 1.0 Blood Gas Hemoglobin 6.1 Oxygen Delivery Device VENTILATOR Blood Gas Ventilator Setting PRVC / AC / Blood Gas Inspired Oxygen 100 Hemoglobin 8.1 Hematocrit 26.3 Prothrombin Time 19.6 Prothromb Time International Ratio 1.9 Activated Partial Thromboplast Time 29.4 Fibrinogen 177 Potassium Level 3.2 Lactic Acid Level 3.9 Phosphorus Level 4.8 Magnesium Level 1.6 Troponin I 0.08 Salicylates Level LESS THAN 1.7 Acetaminophen Level LESS THAN 2.0 Ethyl Alcohol Level LESS THAN 3 Nasal Screen MRSA (PCR) MRSA NOT DETECTED Urine Eosinophils NONE SEEN Test 06/25/17 04:20 White Blood Count 5.9 Red Blood Count 3.68 Hemoglobin 8.2 Hematocrit 26.1 Mean Corpuscular Volume 71.1 Mean Corpuscular Hemoglobin 22.4 Mean Corpuscular Hemoglobin Concent 31.5 Red Cell Distribution Width 21.2 Platelet Count 144 Mean Platelet Volume 8.4 Neutrophils (%) (Auto) 82.7 Lymphocytes (%) (Auto) 11.6 Monocytes (%) (Auto) 5.5 Eosinophils (%) (Auto) 0.1 Basophils (%) (Auto) 0.1 Neutrophils # (Auto) 4.9 Lymphocytes # (Auto) 0.7 Monocytes # (Auto) 0.3 Eosinophils # (Auto) 0.0 Basophils # (Auto) 0.0 CBC Comment AUTO DIFF Differential Comment AUTO DIFF CONFIRMED Platelet Estimate LOW Platelet Morphology Comment ENLARGED Ovalocytes 1+ Blood Urea Nitrogen 32 Creatinine 1.49 Random Glucose 96 Total Protein 5.7 Albumin 2.6 Calcium Level 7.6 Phosphorus Level 3.9 Magnesium Level 1.6 Alkaline Phosphatase 94 Aspartate Amino Transf (AST/SGOT) 104 Alanine Aminotransferase (ALT/SGPT) 43 Total Bilirubin 2.0 Sodium Level 143 Potassium Level 4.2 Chloride Level 108 Carbon Dioxide Level 23.7 Anion Gap 11 Estimat Glomerular Filtration Rate 36 Lactic Acid Level 2.4 Total Creatine Kinase 31 Troponin I 0.05 Thyroid Stimulating Hormone 3rd Gen 1.760 Random Vancomycin Level 14.5 Date/Time Source Procedure Growth Status 06/24/17 20:19 Blood Peripheral Aerobic Blood Culture - Preliminary NO GROWTH IN 1 DAY Resulted 06/24/17 20:19 Blood Peripheral Anaerobic Blood Culture - Preliminary NO GROWTH IN 1 DAY Resulted 06/25/17 08:00 Fluid Bile Fluid Gram Stain Pending Received 06/25/17 08:00 Fluid Bile Fluid Body Fluid Culture Pending Received 06/25/17 00:54 Sputum Expectorated Sputum Gram Stain - Final Resulted 06/25/17 00:54 Sputum Expectorated Sputum Sputum Culture Pending Resulted 06/25/17 01:25 Urine Catheterized Urine Legionella Antigen - Final PRESUMPTIVE NEGATIVE FOR LEGIONELLA P... Complete 06/25/17 01:25 Urine Catheterized Urine Streptococcus pneumoniae Antigen (M - Final PRESUMPTIVE NEGATIVE FOR STREPTOCOCCU... Complete Result Diagram: 06/25/17 0420 06/25/17 0420 Imaging Last Impressions Chest X-Ray 06/25/17 0000 Signed Impressions: Service Date/Time: June 03:58 - CONCLUSION: 1. Stable tubes and lines. NGT in the stomach. 2. Worsening bilateral lower lung zone airspace disease and associated right > left small pleural effusions. Akira Cullen MD Head CT 06/24/17 1645 Signed Impressions: Service Date/Time: Saturday, June 24, 2017 18:00 - CONCLUSION: No acute disease. Brian Burnett MD Percutaneous Cholangiogram 06/24/17 0000 Signed Impressions: Service Date/Time: Saturday, June 24, 2017 20:36 - CONCLUSION: Uncomplicated percutaneous cholecystostomy as above. Lalo Wong MD Abdomen/Pelvis CT 06/24/17 0000 Signed Impressions: Service Date/Time: Saturday, June 24, 2017 18:05 - CONCLUSION: 1. Bibasilar patchy infiltrates (right worse than left) consistent with probable pneumonia. Clinical correlation is recommended. 2. Worsening pleural effusions which are moderate in size on the right and small on the left. 3. Diffuse peripheral perfusion defects involving the kidneys suggestive of decreased renal function or possible interval development of bilateral pyelonephritis. Clinical correlation is recommended. 4. Gallbladder wall thickening and vicarious excretion of contrast via the gallbladder. Clinical correlation is recommended to rule out cholecystitis. 5. Interval development of ascites within the abdomen. 6. Thickening of the wall of the ascending colon raising possibility of colitis. Clinical correlation is recommended. Brian Burnett MD Assessment and Plan Assessment and Plan 57 yo F septic shock (resolved), acute cholecystitis s/p cholecystostomy tube, respiratory failure. Last night she was in extremis, requiring vasopressors, intubation, resuscitation. Cholecystostomy tube was placed. She has improved significantly overnight. She is now on no vasopressors. CT findings included a thick-walled gallbladder, moderate right pleural effusion, and inflammation of the ascending colon. These findings could all be explained by acute cholecystitis. However, it is also possible she has colitis. I would recommend continuing cholecystostomy tube drainage. She could be started on low rate tube feeding tomorrow with increase as tolerated. If she has clinical worsening or worsening abdominal exam or symptoms recommend further evaluation of the colon starting with CT scan with IV contrast if possible. I will follow peripherally and will care for the cholecystostomy tube and possible cholecystectomy in the future if she were to continue to improve. Discussed in detail with Dr. Pratt. Joel Sterling MD Jun 25, 2017 11:32
--- NOTE | 2017-06-25 11:54 | ECHRPT ---
Indication: ATRIAL FIB/FLUTTER CONCLUSIONS Normal left ventricular size. Wall thickness is normal. The left ventricular systolic function is mildly reduced with an estimated ejection fraction in the range of 45- 50% The left atrial size is [id number] dilated. The right atrial size is [id number] dilated. Moderate to severe mitral valve regurgitation. There is moderate to severe tricuspid regurgitation. The estimated pulmonary arterial pressure is 32 mmHg. BP: 118 / 70 HR: 109 Rhythm: Sinus MEASUREMENTS (Male / Female) Normal Values Technical Quality:Fair 2D ECHO LV Diastolic Diameter PLAX 4.5 cm 4.2 - 5.9 / 3.9 - 5.3 cm LV Systolic Diameter PLAX 3.6 cm IVS Diastolic Thickness 0.8 cm 0.6 - 1.0 / 0.6 - 0.9 cm LVPW Diastolic Thickness 0.8 cm 0.6 - 1.0 / 0.6 - 0.9 cm LV Relative Wall Thickness 0.4 RV Internal Dim ED PLAX 2.0 cm LVOT Diameter 1.6 cm Aortic Root Diameter 2.4 cm LA Systolic Diameter LX 3.6 cm 3.0 - 4.0 / 2.7 - 3.8 cm M-MODE AV Cusp Separation MM 1.5 cm DOPPLER AV Peak Velocity 101.0 cm/s AV Peak Gradient 4.1 mmHg AV Mean Gradient 2.7 mmHg AV Velocity Time Integral 11.9 cm LVOT Peak Velocity 74.0 cm/s LVOT Peak Gradient 2.2 mmHg LVOT Velocity Time Integral 11.2 cm AV Area Cont Eq vti 1.9 cm AV Area Cont Eq pk 1.5 cm Mitral E Point Velocity 107.1 cm/s LV E' Lateral Velocity 11.4 cm/s Mitral E to LV E' Lateral Ratio 9.4 LV E' Septal Velocity 7.6 cm/s Mitral E to LV E' Septal Ratio 14.0 TR Peak Velocity 232.0 cm/s TR Peak Gradient 21.5 mmHg Right Atrial Pressure 10.0 mmHg Pulmonary Artery Systolic Pressu 31.5 mmHg Right Ventricular Systolic Press 31.5 mmHg PV Peak Velocity 46.6 cm/s PV Peak Gradient 0.9 mmHg FINDINGS LEFT VENTRICLE Normal left ventricular size. Wall thickness is normal. The left ventricular systolic function is mildly reduced with an estimated ejection fraction in the range of 45- 50%. RIGHT VENTRICLE Normal right ventricular size and systolic function. LEFT ATRIUM The left atrial size is [id number]-[id number] dilated. RIGHT ATRIUM The right atrial size is [id number] dilated. AORTA The aortic root and proximal ascending aorta are not well visualized. MITRAL VALVE Moderate mitral valve regurgitation. AORTIC VALVE Trileaflet aortic valve. No aortic valve stenosis or regurgitation. TRICUSPID VALVE There is moderate tricuspid regurgitation. The estimated pulmonary arterial pressure is 32 mmHg. PULMONARY VALVE No pulmonary valve regurgitation or stenosis. VESSELS The inferior vena cava is normal in size. Gianni Jeffers MD, FACC, [facility] [place] (Electronically Signed) Final Date:25 June 2017 11:52
[2017-06-25 12:58] LABS: HEPATITIS A AB IGM NEGATIVE (NEGATIVE); HEPATITIS B CORE AB IGM NEGATIVE (NEGATIVE)
[2017-06-25] MEDS: VANCOMYCIN INJ 1,500 MG in SODIUM CHLORID 0.9% 500 ML INJ 500 ML IV SCH (13:01)
--- NOTE | 2017-06-25 15:14 | MG ---
cc: Stephanie Shannon MD EEG #: [id number] REFERRING: Guillermo Pratt MD ROOM: 449 Intubated, 30 mcg of Diprivan turned off 2 minutes into the EEG with photic stimulation. CT negative. This is a 57-year-old woman who came in with a rapid ventricular rate, placed on metoprolol, became bradycardic and more somnolent; on heparin, Zosyn, Diprivan. DESCRIPTION OF RECORD: Patient had some overall background of 6 Hz slowing alternating with a more suppressed pattern, this is with the Diprivan turned off. Phase reversals are seen as the Diprivan is now off predominately over the right frontal central region and sharps as well. Photic stimulation: No significant driving response. Patient was asked to squeeze the health and safety technician's hand, she did not do that. Withdrew her left foot to tactile stimulation. IMPRESSION: Abnormal EEG due to slowing with phase reversals as well as sharp waves that are probable foci for epileptic activity in this patient. Clinical correlation. Stephanie Shannon MD DF/cc , 02:50 PM , 03:13 PM
[2017-06-25 17:42] LABS: HEMATOCRIT 26.1 % (35.0-46.0); HEMOGLOBIN 8.1 GM/DL (11.6-15.3); MEAN CELL VOLUME 71.9 FL (80.0-100.0); MEAN CORPUSCULAR HEMOGLOBIN 22.5 PG (27.0-34.0); MEAN CORPUSCULAR HGB CONC 31.2 % (32.0-36.0); MEAN PLATELET VOLUME 8.6 FL (7.0-11.0); PLATELET COUNT 169 TH/MM3 (150-450); RED BLOOD COUNT 3.62 MIL/MM3 (4.00-5.30); RED CELL DISTRIBUTION WIDTH 21.5 % (11.6-17.2); WHITE BLOOD COUNT 13.7 TH/MM3 (4.0-11.0)
[2017-06-25 18:01] LABS: BICARBONATE 24.2 MEQ/L (21.0-32.0); CALCIUM 7.8 MG/DL (8.5-10.1); CREATININE 1.88 MG/DL (0.50-1.00); PHOSPHORUS 4.1 MG/DL (2.5-4.9)
--- NOTE | 2017-06-25 18:27 | PD.CARD.PN ---
Subjective Subjective Remarks intubated, sedated Objective Medications Current Medications Medications (Trade) Dose Ordered Sig/Salud Route Start Time Stop Time Status Last Admin (Narcan Inj) 0.4 mg UNSCH PRN IV PUSH 06/23/17 20:30 (Vistaril) 25 mg Q6H PRN PO 06/23/17 23:30 Potassium Chloride 100 ml @ 25 mls/hr Q2H PRN IV 06/24/17 17:00 06/25/17 02:34 Potassium Chloride 100 ml @ 50 mls/hr Q2H PRN IV 06/24/17 17:00 (K-Lyte Cl Eff) 50 meq UNSCH PRN PO 06/24/17 17:00 Potassium Chloride 100 ml @ 25 mls/hr UNSCH PRN IV 06/24/17 17:00 Potassium Chloride 100 ml @ 50 mls/hr Q2H PRN IV 06/24/17 17:00 Magnesium Sulfate 4 gm/Sodium Chloride 100 ml @ 50 mls/hr UNSCH PRN IV 06/24/17 17:00 (Mag-Ox) 800 mg UNSCH PRN PO 06/24/17 17:00 Magnesium Sulfate 2 gm/Sodium Chloride 100 ml @ 50 mls/hr UNSCH PRN IV 06/24/17 17:00 06/25/17 07:53 (K-Phos) 2,000 mg Q4H PRN PO 06/24/17 17:00 Sodium Phosphate 30 mmol/Sodium Chloride 250 ml @ 42 mls/hr UNSCH PRN IV 06/24/17 17:00 (K-Phos) 2,000 mg UNSCH PRN PO/TUBE 06/24/17 17:00 Potassium Phosphate 30 mmol/ Sodium Chloride 260 ml @ 42 mls/hr UNSCH PRN IV 06/24/17 17:00 (D50w (Vial) Inj) 50 ml UNSCH PRN IV PUSH 06/24/17 17:00 (Glucagon Inj) 1 mg UNSCH PRN OTHER 06/24/17 17:00 (NS Flush) 2 ml UNSCH PRN IV FLUSH 06/24/17 17:00 (NS Flush) 2 ml BID IV FLUSH 06/24/17 21:00 06/24/17 22:40 (Zofran Inj) 4 mg Q6H PRN IV PUSH 06/24/17 17:00 (Duoneb Neb) 1 ampule Q6HR NEB INH 06/24/17 22:00 06/25/17 15:37 (Albuterol Neb) 2.5 mg Q2HR NEB PRN INH 06/24/17 17:00 Miscellaneous Information 1 Q361D XX 06/24/17 18:00 (Chlorhexidine 2% Cloth) 3 pack Taper DAILY@04 TOP 06/25/17 04:00 06/21/18 03:59 06/25/17 04:00 (Chlorhexidine 2% Cloth) 3 pack UNSCH PRN TOP 06/24/17 17:00 (Keiry-Colace) 1 tab BID PO 06/24/17 21:00 06/25/17 08:09 (Milk Of Magnesia Liq) 30 ml Q12H PRN PO 06/24/17 17:00 (Senokot) 17.2 mg Q12H PRN PO 06/24/17 17:00 (Dulcolax Supp) 10 mg DAILY PRN RECTAL 06/24/17 17:00 (Lactulose Liq) 30 ml DAILY PRN PO 06/24/17 17:00 Piperacillin Sod/ Tazobactam Sod 50 ml @ 100 mls/hr Q6H IV 06/24/17 20:00 06/25/17 14:01 Pharmacy Profile Note 0 ml @ 0 mls/hr UNSCH OTHER 06/24/17 18:00 (Peridex 0.12% Liq) 15 ml BID@08,20 MT 06/24/17 20:00 06/25/17 07:54 Propofol 100 ml @ 2.13 mls/hr TITRATE PRN IV 06/24/17 19:30 06/25/17 17:13 Fentanyl Citrate 250 ml @ 5 mls/hr TITRATE PRN IV 06/24/17 19:30 Norepinephrine Bitartrate 250 ml @ 7.5 mls/hr TITRATE PRN IV 06/24/17 19:30 (Brethine Inj) 1 mg UNSCH PRN SQ 06/24/17 19:30 (Tears Naturale Opth Soln) 1 drop Q8HR EACH EYE 06/24/17 22:00 06/25/17 14:01 (NovoLIN R SUPPLEMENTAL SCALE) 1 Q4HR SQ 06/24/17 20:00 (Protonix Inj) 40 mg Q24H IV PUSH 06/24/17 20:00 06/24/17 22:44 (Heparin Inj) 5,000 units Q12HR SQ 06/25/17 07:00 06/25/17 08:09 Sodium Chloride 1,000 ml @ 150 mls/hr Q6H40M IV 06/24/17 20:15 06/25/17 17:13 (Tylenol 650 Mg/ 20 ml Liq) 650 mg Q6H PRN NG 06/25/17 08:45 Vancomycin HCl 1500 mg/Sodium Chloride 515 ml @ 250 mls/hr Q24H IV 06/25/17 12:00 06/25/17 13:01 Miscellaneous Information SPECIFIC LAB TO BE DRAWN:VANCOMYCIN TROUGH DATE TO... ONCE ONCE .XX 06/27/17 11:45 06/27/17 11:46 Albumin Human 500 ml @ 250 mls/hr ONCE ONCE IV 06/25/17 18:15 06/25/17 20:14 UNV Vital Signs / I&O Vital Signs Date Time Temp Pulse Resp B/P (MAP) Pulse Ox O2 Delivery O2 Flow Rate FiO2 06/25/17 16:24 95 50 06/25/17 16:00 50 06/25/17 15:00 123 06/25/17 15:00 98.0 112 16 94/65 (75) 96 121/59 (79) 06/25/17 13:13 97 50 06/25/17 12:00 50 06/25/17 11:00 98.1 116 16 100/74 (83) 96 116/69 (85) 06/25/17 11:00 115 06/25/17 10:48 98.1 100 17 107/65 97 06/25/17 10:29 95 50 06/25/17 10:10 98.5 113 18 103/64 97 06/25/17 09:30 98.6 108 19 124/67 99 06/25/17 08:10 92 45 06/25/17 08:00 45 06/25/17 07:00 98.9 116 19 110/76 (87) 93 106/75 (85) 06/25/17 07:00 104 06/25/17 04:49 97 06/25/17 04:00 50 06/25/17 03:47 98.6 109 18 101/67 (78) 97 118/70 (86) 06/25/17 03:21 99 45 06/25/17 01:59 98.4 06/25/17 00:25 97 50 06/24/17 23:00 112 06/24/17 23:00 94.7 100 18 116/82 (93) 97 143/78 (99) 06/24/17 22:15 94.5 103 18 103/76 90 06/24/17 22:00 100 100 06/24/17 21:05 100 100 06/24/17 21:01 94.0 116 18 94 06/24/17 20:25 100 45 06/24/17 20:00 100 06/24/17 19:25 100 100 06/24/17 19:05 94.8 64 18 118/67 (84) 94 06/24/17 19:00 61 I/O 06/24/17 06/24/17 06/24/17 06/25/17 06/25/17 06/25/17 07:00 15:00 23:00 07:00 15:00 23:00 Intake Total 470 ml 1036 ml 2485 ml 4892 ml 1243 ml 4243 ml Output Total 400 ml 525 ml 300 ml Balance 70 ml 1036 ml 2485 ml 4367 ml 1243 ml 3943 ml Intake Oral 0 ml IV Total 470 ml 1036 ml 2000 ml 4642 ml 601 ml 4243 ml Packed Cells 400 ml 250 ml FFP 310 ml Cryoprecipitate 212 ml Blood Product IV Normal Saline Flush 85 ml 120 ml Output Urine Total 400 ml 485 ml 150 ml Gastric Drainage Total 0 ml Drainage Total 40 ml 150 ml # Bowel Movements 3 0 0 Physical Exam GENERAL: SKIN: Warm and dry. HEAD: Normocephalic. EYES: No scleral icterus. No injection or drainage. NECK: Supple, trachea midline. No JVD or lymphadenopathy. CARDIOVASCULAR: Regular rate and rhythm without murmurs, gallops, or rubs. RESPIRATORY: Breath sounds equal bilaterally. No accessory muscle use. GASTROINTESTINAL: Abdomen soft, non-tender, nondistended. MUSCULOSKELETAL: No cyanosis, or edema. BACK: Nontender without obvious deformity. No CVA tenderness. Laboratory Laboratory Tests Test 06/24/17 20:06 06/24/17 23:11 06/24/17 23:56 06/25/17 01:25 Blood Gas Puncture Site ART LINE Blood Gas Patient Temperature 98.6 Blood Gas HCO3 14 mmol/L Blood Gas Base Excess -10.7 mmol/L Blood Gas Oxygen Saturation 97 % Arterial Blood pH 7.31 Arterial Blood Partial Pressure CO2 29 mmHg Arterial Blood Partial Pressure O2 226 mmHg Arterial Blood Oxygen Content 8.9 Vol % Arterial Blood Carboxyhemoglobin 2.0 % Arterial Blood Methemoglobin 1.0 % Blood Gas Hemoglobin 6.1 G/DL Oxygen Delivery Device VENTILATOR Blood Gas Ventilator Setting PRVC / AC / Blood Gas Inspired Oxygen 100 % Hemoglobin 8.1 GM/DL Hematocrit 26.3 % Prothrombin Time 19.6 SEC Prothromb Time International Ratio 1.9 RATIO Activated Partial Thromboplast Time 29.4 SEC Fibrinogen 177 mg/dL Potassium Level 3.2 MEQ/L Lactic Acid Level 3.9 mmol/L Phosphorus Level 4.8 MG/DL Magnesium Level 1.6 MG/DL Troponin I 0.08 NG/ML Salicylates Level LESS THAN 1.7 MG/DL Acetaminophen Level LESS THAN 2.0 MCG/ML Ethyl Alcohol Level LESS THAN 3 MG/DL Rapid Plasma Reagin NON-REACTIVE Hepatitis A IgM Antibody NEGATIVE Hepatitis B Surface Antigen NEGATIVE Hepatitis B Core IgM Antibody NEGATIVE Hepatitis C Antibody NEGATIVE Nasal Screen MRSA (PCR) MRSA NOT DETECTED Urine Eosinophils NONE SEEN /HPF Test 06/25/17 04:20 06/25/17 12:20 06/25/17 17:30 White Blood Count 5.9 TH/MM3 13.7 TH/MM3 Red Blood Count 3.68 MIL/MM3 3.62 MIL/MM3 Hemoglobin 8.2 GM/DL 8.1 GM/DL Hematocrit 26.1 % 26.1 % Mean Corpuscular Volume 71.1 FL 71.9 FL Mean Corpuscular Hemoglobin 22.4 PG 22.5 PG Mean Corpuscular Hemoglobin Concent 31.5 % 31.2 % Red Cell Distribution Width 21.2 % 21.5 % Platelet Count 144 TH/MM3 169 TH/MM3 Mean Platelet Volume 8.4 FL 8.6 FL Neutrophils (%) (Auto) 82.7 % Lymphocytes (%) (Auto) 11.6 % Monocytes (%) (Auto) 5.5 % Eosinophils (%) (Auto) 0.1 % Basophils (%) (Auto) 0.1 % Neutrophils # (Auto) 4.9 TH/MM3 Lymphocytes # (Auto) 0.7 TH/MM3 Monocytes # (Auto) 0.3 TH/MM3 Eosinophils # (Auto) 0.0 TH/MM3 Basophils # (Auto) 0.0 TH/MM3 CBC Comment AUTO DIFF Differential Comment AUTO DIFF CONFIRMED Platelet Estimate LOW Platelet Morphology Comment ENLARGED Ovalocytes 1+ Blood Urea Nitrogen 32 MG/DL 40 MG/DL Creatinine 1.49 MG/DL 1.88 MG/DL Random Glucose 96 MG/DL 96 MG/DL Total Protein 5.7 GM/DL Albumin 2.6 GM/DL Calcium Level 7.6 MG/DL 7.8 MG/DL Phosphorus Level 3.9 MG/DL 4.1 MG/DL Magnesium Level 1.6 MG/DL 2.0 MG/DL Alkaline Phosphatase 94 U/L Aspartate Amino Transf (AST/SGOT) 104 U/L Alanine Aminotransferase (ALT/SGPT) 43 U/L Total Bilirubin 2.0 MG/DL Sodium Level 143 MEQ/L 143 MEQ/L Potassium Level 4.2 MEQ/L 4.1 MEQ/L Chloride Level 108 MEQ/L 105 MEQ/L Carbon Dioxide Level 23.7 MEQ/L 24.2 MEQ/L Anion Gap 11 MEQ/L 14 MEQ/L Estimat Glomerular Filtration Rate 36 ML/MIN 27 ML/MIN Lactic Acid Level 2.4 mmol/L 2.3 mmol/L Total Creatine Kinase 31 U/L Troponin I 0.05 NG/ML Thyroid Stimulating Hormone 3rd Gen 1.760 uIU/ML Random Vancomycin Level 14.5 COMMENT Imaging Last 24 hours Impressions Chest X-Ray 06/25/17 0000 Signed Impressions: Service Date/Time: June 03:58 - CONCLUSION: 1. Stable tubes and lines. NGT in the stomach. 2. Worsening bilateral lower lung zone airspace disease and associated right > left small pleural effusions. Akira Cullen MD Chest X-Ray 06/24/172018 Signed Impressions: Service Date/Time: Saturday, June 24, 2017 20:31 - CONCLUSION: 1. Right subclavian central line has its tip in super vena cava. No pneumothorax is noted. 2. Persistent patchy infiltrates bilaterally slightly worse on the right and consistent with asymmetric pulmonary edema or pneumonia. Clinical correlation is recommended. Brian Burnett MD Assessment and Plan Problem List: (1) Sepsis ICD Codes: A41.9 - Sepsis, unspecified organism (2) Cardiomyopathy ICD Codes: I42.9 - Cardiomyopathy, unspecified (3) Mitral regurgitation ICD Codes: I34.0 - Nonrheumatic mitral (valve) insufficiency (4) Bradycardia ICD Codes: R00.1 - Bradycardia, unspecified (5) Atrial fibrillation with RVR ICD Codes: I48.91 - Unspecified atrial fibrillation Status: Acute (6) Anemia ICD Codes: D64.9 - Anemia, unspecified Status: Acute (7) Pulmonary edema ICD Codes: J81.1 - Chronic pulmonary edema (8) Cholecystitis ICD Codes: K81.9 - Cholecystitis, unspecified Assessment and Plan 1.) Cardiomyopathy - beta jude and clayton held due to septic shock 2.) Afib - consult EP, Dr Arellano, due to tachy-joe syndrome, av gosia bloackade held due to bradycardia, ac held due to severe anemia of indeterminate origin 3.) Severe mr - consult ct surgery to determine if patient is a surgical candidate for potential mvr and cath if she is when hemodynamically stable, patient consents and rx plan for cholecystitis defined Problem Qualifiers (1) Anemia: Qualified Codes: D64.9 - Anemia, unspecified Gianni Jeffers MD Jun 25, 2017 18:27
[2017-06-25] MEDS ORDERED: hydrALAZINE HCL 20 MG/ML VIAL ONE (18:56)
[2017-06-25] MEDS ORDERED: LABETALOL HCL 100 MG/20 ML VIAL ONE (18:56)
[2017-06-25] MEDS ORDERED: CLEVIDIPINE INJ 50 ML ONE (18:57)
[2017-06-25] MEDS ORDERED: ALBUMIN 5% INJ 500 ML IV ONE (20:00)
[2017-06-25] MEDS: PANTOPRAZOLE SODIUM 40 MG VIAL IV PUSH SCH (20:18)
[2017-06-26] VITALS (13 sets, daily range): BP systolic 104–139; BP diastolic 64–104; PULSE 77–130; RESP 14–16; TEMP 97.8–98.8; O2SAT 95–99
[2017-06-26] MEDS ORDERED: DIGOXIN 0.5 MG/2 ML VIAL IV PUSH ONE (00:15)
[2017-06-26] MEDS: PIPERACIL-TAZO 3.375 GM PREMIX 50 ML IV SCH ×4 (01:37→20:23)
[2017-06-26] MEDS ORDERED: DILTIAZEM HCL 25 MG/5 ML VIAL IV ONE (02:00)
[2017-06-26] MEDS: SODIUM CHLOR 0.9% 1000 ML INJ 1,000 ML IV SCH ×3 (02:19→08:09)
[2017-06-26] MEDS ORDERED: AMIODARONE INJ 150 MG in DEXTROSE 5% IN WATER 100ML INJ 100 ML IV ONE ×2 (03:31)
[2017-06-26] MEDS: RESP: ALBUTEROL 2.5 MG/IPRATROPIUM 0.5 MG NEB (SCH) INH ×4 (03:37→19:39)
[2017-06-26] MEDS ORDERED: AMIODARONE INJ 450 MG in DEXTROSE 5% IN WATE(EXCEL) INJ 241 ML IV PRN ×2 (03:41)
[2017-06-26] MEDS: PROPOFOL 1000 MG/100 ML INJ 100 ML IV PRN ×3 (03:59→21:12)
[2017-06-26] MEDS: INSULIN NovoLIN REGULAR SUPPLEMENTAL SCALE SQ SCH ×6 (04:00→20:00)
[2017-06-26] MEDS: CHLORHEXIDINE GLUCONATE 2 % 1 PACK (2 CLOTHS) TOP SCH (04:00)
[2017-06-26 04:25] LABS: INTERNATIONAL NORMALIZED RATIO 1.3 RATIO; PROTHROMBIN TIME - PATIENT 13.2 SEC (9.8-11.6)
[2017-06-26 04:29] LABS: BASOPHIL % 0.3 % (0.0-2.0); EOSINOPHIL % 0.1 % (0.0-4.0); HEMOGLOBIN 7.8 GM/DL (11.6-15.3); LYMPH % 11.9 % (9.0-44.0); LYMPHOCYTE # 1.3 TH/MM3 (1.0-4.8); MEAN CELL VOLUME 71.1 FL (80.0-100.0); MEAN CORPUSCULAR HEMOGLOBIN 22.3 PG (27.0-34.0); MEAN CORPUSCULAR HGB CONC 31.3 % (32.0-36.0); MEAN PLATELET VOLUME 8.9 FL (7.0-11.0); MONO % 7.1 % (0.0-8.0); MONOCYTE # 0.8 TH/MM3 (0-0.9); NEUT % 80.6 % (16.0-70.0); PLATELET COUNT 164 TH/MM3 (150-450); RED BLOOD COUNT 3.52 MIL/MM3 (4.00-5.30); RED CELL DISTRIBUTION WIDTH 21.8 % (11.6-17.2); WHITE BLOOD COUNT 11.1 TH/MM3 (4.0-11.0)
[2017-06-26] MEDS: AMIODARONE INJ 450 MG in SODIUM CHLOR 0.9% (EXCEL) INJ 241 ML IV PRN ×2 (04:29→14:00)
[2017-06-26 05:03] LABS: ALBUMIN 3.3 GM/DL (3.4-5.0); ALKALINE PHOSPHATASE 94 U/L (45-117); ALT (GPT) 60 U/L (10-53); AST (GOT) 87 U/L (15-37); BLOOD UREA NITROGEN 48 MG/DL (7-18); CALCIUM 8.1 MG/DL (8.5-10.1); CREATININE 1.82 MG/DL (0.50-1.00); GLOMERULAR FILTRATION RATE 28 ML/MIN (>89); GLUCOSE,RANDOM 99 MG/DL (74-106); MAGNESIUM 2.2 MG/DL (1.5-2.5); PHOSPHORUS 4.2 MG/DL (2.5-4.9); TOTAL BILIRUBIN ADULT 1.2 MG/DL (0.2-1.0); TOTAL PROTEIN 6.3 GM/DL (6.4-8.2)
[2017-06-26 05:04] LABS: BICARBONATE 24.7 MEQ/L (21.0-32.0); CHLORIDE 108 MEQ/L (98-107); SODIUM (NA) 143 MEQ/L (136-145)
[2017-06-26] MEDS: ARTIFICIAL TEARS OPTH SOLN 15 ML BTL EACH EYE SCH ×3 (05:57→21:13)
--- NOTE | 2017-06-26 06:59 | RADRPT ---
EXAM DATE/TIME: 06/26/2017 05:19 [place] COMPARISON: CHEST SINGLE AP, June 25, 2017, 3:58. INDICATIONS : Evaluate for pneumonia- Respiratory failure MEDICAL HISTORY : Anemia SURGICAL HISTORY : Tubal ligation. ENCOUNTER: Subsequent ACUITY: 3 days PAIN SCORE: Non-responsive. LOCATION: Bilateral chest FINDINGS: Technically limited exam due to diffuse motion and overlying tubing projected over the right lower ch est. ET tube tip well above the ricky. There are multiple cardiac leads projected over the chest. The position of the gastric tube is obscured by the multiple tubes. Right central line tip projects over the distal superior vena cava. There is persisting consolidation in the lower lungs with loss of delineation of both hemidiaphragms. CONCLUSION: Persistent consolidation in the lower lungs. Location of the gastric tube cannot be determined on th is exam. Technical limitations. Floyd Magallanes MD on June 26, 2017 at 6:56 Board Certified Radiologist. This report was verified electronically.
[2017-06-26] MEDS: DOCUSATE SODIUM 50 MG/SENNA 8.6 MG TAB PO SCH ×2 (08:08→20:22)
[2017-06-26] MEDS: HEPARIN SODIUM - SQ 10,000 UNITS/ML VIAL SQ SCH ×2 (08:08→20:23)
[2017-06-26] MEDS: SODIUM CHLORIDE 0.9% FLUSH 10 ML FLUSH IV FLUSH SCH ×2 (08:08→20:23)
[2017-06-26] MEDS: CHLORHEXIDINE 0.12% (ORAL KIT) 15 ML CUP MT SCH ×2 (08:09→20:23)
[2017-06-26 09:33] LABS: BANDS 1 % (0-6); CORRECTED NUCLEATED RBC 1 /100 WBC (0-0); LYMPHOCYTES 9 % (9-44); MONOCYTES 3 % (0-8); NEUTROPHIL # MANUAL DIFF 9.7 TH/MM3 (1.8-7.7); NUCLEATED RED BLOOD CELL 1 (0-0); POLYS (SEG NEUTROPHILS) 86 % (16-70)
[2017-06-26 09:34] LABS: OVALOCYTES 1+ (NORMAL)
[2017-06-26] MEDS ORDERED: FUROSEMIDE 40 MG/4 ML VIAL IV PUSH ONE (10:30)
[2017-06-26] MEDS ORDERED: levETIRAcetam INJ 100 ML IV ONE (10:30)
[2017-06-26] MEDS ORDERED: POTASSIUM CHLOR 20 MEQ PREMIX 100 ML IV ONE (10:30)
[2017-06-26] MEDS: VANCOMYCIN INJ 1,500 MG in SODIUM CHLORID 0.9% 500 ML INJ 500 ML IV SCH (12:11)
--- NOTE | 2017-06-26 13:37 | PD.CARD.PN ---
Subjective Subjective Remarks intubated, sedated Objective Medications Current Medications Medications (Trade) Dose Ordered Sig/Salud Route Start Time Stop Time Status Last Admin (Narcan Inj) 0.4 mg UNSCH PRN IV PUSH 06/23/17 20:30 Potassium Chloride 100 ml @ 25 mls/hr Q2H PRN IV 06/24/17 17:00 06/25/17 02:34 Potassium Chloride 100 ml @ 50 mls/hr Q2H PRN IV 06/24/17 17:00 (K-Lyte Cl Eff) 50 meq UNSCH PRN PO 06/24/17 17:00 Potassium Chloride 100 ml @ 25 mls/hr UNSCH PRN IV 06/24/17 17:00 Potassium Chloride 100 ml @ 50 mls/hr Q2H PRN IV 06/24/17 17:00 Magnesium Sulfate 4 gm/Sodium Chloride 100 ml @ 50 mls/hr UNSCH PRN IV 06/24/17 17:00 (Mag-Ox) 800 mg UNSCH PRN PO 06/24/17 17:00 Magnesium Sulfate 2 gm/Sodium Chloride 100 ml @ 50 mls/hr UNSCH PRN IV 06/24/17 17:00 06/25/17 07:53 (K-Phos) 2,000 mg Q4H PRN PO 06/24/17 17:00 Sodium Phosphate 30 mmol/Sodium Chloride 250 ml @ 42 mls/hr UNSCH PRN IV 06/24/17 17:00 (K-Phos) 2,000 mg UNSCH PRN PO/TUBE 06/24/17 17:00 Potassium Phosphate 30 mmol/ Sodium Chloride 260 ml @ 42 mls/hr UNSCH PRN IV 06/24/17 17:00 (D50w (Vial) Inj) 50 ml UNSCH PRN IV PUSH 06/24/17 17:00 (Glucagon Inj) 1 mg UNSCH PRN OTHER 06/24/17 17:00 (NS Flush) 2 ml UNSCH PRN IV FLUSH 06/24/17 17:00 (NS Flush) 2 ml BID IV FLUSH 06/24/17 21:00 06/26/17 08:08 (Zofran Inj) 4 mg Q6H PRN IV PUSH 06/24/17 17:00 (Duoneb Neb) 1 ampule Q6HR NEB INH 2/28/18 22:00 06/26/17 09:34 (Albuterol Neb) 2.5 mg Q2HR NEB PRN INH 06/24/17 17:00 Miscellaneous Information 1 Q361D XX 06/24/17 18:00 (Chlorhexidine 2% Cloth) 3 pack Taper DAILY@04 TOP 06/25/17 04:00 06/21/18 03:59 06/26/17 04:00 (Chlorhexidine 2% Cloth) 3 pack UNSCH PRN TOP 06/24/17 17:00 (Keiry-Colace) 1 tab BID PO 06/24/17 21:00 06/26/17 08:08 (Milk Of Magnesia Liq) 30 ml Q12H PRN PO 06/24/17 17:00 (Senokot) 17.2 mg Q12H PRN PO 06/24/17 17:00 (Dulcolax Supp) 10 mg DAILY PRN RECTAL 06/24/17 17:00 (Lactulose Liq) 30 ml DAILY PRN PO 06/24/17 17:00 Piperacillin Sod/ Tazobactam Sod 50 ml @ 100 mls/hr Q6H IV 06/24/17 20:00 06/26/17 08:07 Pharmacy Profile Note 0 ml @ 0 mls/hr UNSCH OTHER 06/24/17 18:00 (Peridex 0.12% Liq) 15 ml BID@08,20 MT 06/24/17 20:00 06/26/17 08:09 Propofol 100 ml @ 2.13 mls/hr TITRATE PRN IV 06/24/17 19:30 06/26/17 03:59 Fentanyl Citrate 250 ml @ 5 mls/hr TITRATE PRN IV 06/24/17 19:30 Norepinephrine Bitartrate 250 ml @ 7.5 mls/hr TITRATE PRN IV 06/24/17 19:30 (Brethine Inj) 1 mg UNSCH PRN SQ 06/24/17 19:30 (Tears Naturale Opth Soln) 1 drop Q8HR EACH EYE 06/24/17 22:00 06/26/17 05:57 (NovoLIN R SUPPLEMENTAL SCALE) 1 Q4HR SQ 06/24/17 20:00 (Protonix Inj) 40 mg Q24H IV PUSH 06/24/17 20:00 06/25/17 20:18 (Heparin Inj) 5,000 units Q12HR SQ 06/25/17 07:00 06/26/17 08:08 (Tylenol 650 Mg/ 20 ml Liq) 650 mg Q6H PRN NG 06/25/17 08:45 Vancomycin HCl 1500 mg/Sodium Chloride 515 ml @ 250 mls/hr Q24H IV 06/25/17 12:00 06/26/17 12:11 Miscellaneous Information SPECIFIC LAB TO BE DRAWN:VANCOMYCIN TROUGH DATE TO... ONCE ONCE .XX 06/27/17 11:45 06/27/17 11:46 Amiodarone HCl 450 mg/Sodium Chloride 250 ml @ 33.33 mls/ hr Q7H31M PRN IV 06/26/17 04:15 06/26/17 04:29 Levetriacetam 500 mg/Sodium Chloride 105 ml @ 420 mls/hr Q12HR IV 06/26/17 21:00 Vital Signs / I&O Vital Signs Date Time Temp Pulse Resp B/P (MAP) Pulse Ox O2 Delivery O2 Flow Rate FiO2 06/26/17 12:25 97 40 06/26/17 12:00 50 06/26/17 11:00 104 06/26/17 11:00 97.9 115 15 139/104 (116) 95 116/67 (83) 06/26/17 09:35 96 40 06/26/17 08:00 50 06/26/17 07:00 97.8 119 16 104/78 (87) 95 116/67 (83) 06/26/17 07:00 81 06/26/17 04:29 113 148/74 06/26/17 04:18 124 145/83 06/26/17 04:00 50 06/26/17 03:38 99 50 06/26/17 03:00 98.8 125 15 117/75 (89) 98 139/77 (97) 06/26/17 03:00 130 06/26/17 00:08 99 50 06/26/17 00:00 50 06/25/17 23:00 98.7 121 14 101/63 (76) 99 123/76 (92) 06/25/17 23:00 128 06/25/17 20:28 96 50 06/25/17 20:00 50 06/25/17 19:00 99.1 128 15 101/74 (83) 96 120/75 (90) 06/25/17 19:00 130 06/25/17 16:24 95 50 06/25/17 16:00 50 06/25/17 15:00 123 06/25/17 15:00 98.0 112 16 94/65 (75) 96 121/59 (79) I/O 06/25/17 06/25/17 06/25/17 06/26/17 06/26/17 06/26/17 07:00 15:00 23:00 07:00 15:00 23:00 Intake Total 4892 ml 1243 ml 4293 ml 650 ml Output Total 525 ml 300 ml 380 ml Balance 4367 ml 1243 ml 3993 ml 270 ml Intake Oral 0 ml IV Total 4642 ml 601 ml 4293 ml 650 ml Packed Cells 250 ml FFP 310 ml Cryoprecipitate 212 ml Blood Product IV Normal Saline Flush 120 ml Output Urine Total 485 ml 150 ml 210 ml Gastric Drainage Total 0 ml 20 ml Drainage Total 40 ml 150 ml 150 ml # Bowel Movements 0 0 0 Physical Exam GENERAL: SKIN: Warm and dry. HEAD: Normocephalic. EYES: No scleral icterus. No injection or drainage. NECK: Supple, trachea midline. No JVD or lymphadenopathy. CARDIOVASCULAR: Regular rate and rhythm without murmurs, gallops, or rubs. RESPIRATORY: Breath sounds equal bilaterally. No accessory muscle use. GASTROINTESTINAL: Abdomen soft, non-tender, nondistended. MUSCULOSKELETAL: No cyanosis, or edema. BACK: Nontender without obvious deformity. No CVA tenderness. Laboratory Laboratory Tests Test 06/25/17 17:30 06/25/17 21:29 06/25/17 23:08 06/26/17 03:50 White Blood Count 13.7 TH/MM3 11.1 TH/MM3 Red Blood Count 3.62 MIL/MM3 3.52 MIL/MM3 Hemoglobin 8.1 GM/DL 7.8 GM/DL Hematocrit 26.1 % 25.0 % Mean Corpuscular Volume 71.9 FL 71.1 FL Mean Corpuscular Hemoglobin 22.5 PG 22.3 PG Mean Corpuscular Hemoglobin Concent 31.2 % 31.3 % Red Cell Distribution Width 21.5 % 21.8 % Platelet Count 169 TH/MM3 164 TH/MM3 Mean Platelet Volume 8.6 FL 8.9 FL Blood Urea Nitrogen 40 MG/DL 48 MG/DL Creatinine 1.88 MG/DL 1.82 MG/DL Random Glucose 96 MG/DL 99 MG/DL Calcium Level 7.8 MG/DL 8.1 MG/DL Phosphorus Level 4.1 MG/DL 4.2 MG/DL Magnesium Level 2.0 MG/DL 2.2 MG/DL Sodium Level 143 MEQ/L 143 MEQ/L Potassium Level 4.1 MEQ/L 3.8 MEQ/L Chloride Level 105 MEQ/L 108 MEQ/L Carbon Dioxide Level 24.2 MEQ/L 24.7 MEQ/L Anion Gap 14 MEQ/L 10 MEQ/L Estimat Glomerular Filtration Rate 27 ML/MIN 28 ML/MIN Lactic Acid Level 1.5 mmol/L 1.5 mmol/L 1.5 mmol/L Neutrophils (%) (Auto) 80.6 % Lymphocytes (%) (Auto) 11.9 % Monocytes (%) (Auto) 7.1 % Eosinophils (%) (Auto) 0.1 % Basophils (%) (Auto) 0.3 % Neutrophils # (Auto) 9.0 TH/MM3 Lymphocytes # (Auto) 1.3 TH/MM3 Monocytes # (Auto) 0.8 TH/MM3 Eosinophils # (Auto) 0.0 TH/MM3 Basophils # (Auto) 0.0 TH/MM3 CBC Comment AUTO DIFF Differential Total Cells Counted 100 Neutrophils % (Manual) 86 % Band Neutrophils % 1 % Lymphocytes % 9 % Monocytes % 3 % Eosinophils % 1 % Neutrophils # (Manual) 9.7 TH/MM3 Nucleated Red Blood Cells 1 /100 WBC Differential Comment FINAL DIFF MANUAL Platelet Estimate NORMAL Platelet Morphology Comment NORMAL Ovalocytes 1+ Prothrombin Time 13.2 SEC Prothromb Time International Ratio 1.3 RATIO Activated Partial Thromboplast Time 25.2 SEC Fibrinogen 244 mg/dL Total Protein 6.3 GM/DL Albumin 3.3 GM/DL Alkaline Phosphatase 94 U/L Aspartate Amino Transf (AST/SGOT) 87 U/L Alanine Aminotransferase (ALT/SGPT) 60 U/L Total Bilirubin 1.2 MG/DL Ammonia 28 MCMOL/L B-Type Natriuretic Peptide 584 PG/ML Amylase Level 42 U/L Lipase 139 U/L Random Cortisol 28.3 MCG/DL Test 06/26/17 05:09 Blood Gas Puncture Site ART LINE Blood Gas Patient Temperature 98.6 Blood Gas HCO3 21 mmol/L Blood Gas Base Excess -3.0 mmol/L Blood Gas Oxygen Saturation 94 % Arterial Blood pH 7.42 Arterial Blood Partial Pressure CO2 33 mmHg Arterial Blood Partial Pressure O2 93 mmHg Arterial Blood Oxygen Content 11.3 Vol % Arterial Blood Carboxyhemoglobin 1.6 % Arterial Blood Methemoglobin 1.4 % Blood Gas Hemoglobin 8.5 G/DL Oxygen Delivery Device VENTILATOR Blood Gas Ventilator Setting PRVC / AC / Blood Gas Inspired Oxygen 50 % Imaging Last 24 hours Impressions Chest X-Ray 06/26/17 0600 Signed Impressions: Service Date/Time: Monday, June 26, 2017 05:19 - CONCLUSION: Persistent consolidation in the lower lungs. Location of the gastric tube cannot be determined on this exam. Technical limitations. Floyd Magallanes MD Assessment and Plan Problem List: (1) Sepsis ICD Codes: A41.9 - Sepsis, unspecified organism (2) Cardiomyopathy ICD Codes: I42.9 - Cardiomyopathy, unspecified (3) Mitral regurgitation ICD Codes: I34.0 - Nonrheumatic mitral (valve) insufficiency (4) Bradycardia ICD Codes: R00.1 - Bradycardia, unspecified (5) Atrial fibrillation with RVR ICD Codes: I48.91 - Unspecified atrial fibrillation Status: Acute (6) Anemia ICD Codes: D64.9 - Anemia, unspecified Status: Acute (7) Pulmonary edema ICD Codes: J81.1 - Chronic pulmonary edema (8) Cholecystitis ICD Codes: K81.9 - Cholecystitis, unspecified Assessment and Plan 1.) Cardiomyopathy - beta jude and clayton held due to septic shock 2.) Afib - consult Dr Arellano, due to tachy-joe syndrome, av gosia bloackade held due to bradycardia, ac held due to severe anemia of indeterminate origin, on iv amio 3.) Severe mr - consult ct surgery to determine if patient is a surgical candidate for potential mvr and cath if she is when hemodynamically stable, patient consents and rx plan for cholecystitis defined Problem Qualifiers (1) Anemia: Qualified Codes: D64.9 - Anemia, unspecified Gianni Jeffers MD Jun 26, 2017 13:37
--- NOTE | 2017-06-26 14:03 | HHI.CCPN ---
Subjective Remarks/Hospital Course 57-year-old female. Date of admission 06/23/2017. Date of consultation 2017. Past medical history includes Patient originally presented to [facility] ED in atrial fibrillation with rapid ventricular response. Patient was initially started on a diltiazem drip and then was switched over to metoprolol tartrate 50 mg every 8 hours. After conversion, patient became bradycardic. CT abdomen/pelvis revealed a 1 mm gallstone without signs of cholecystitis. Otherwise unremarkable. The patient became more somnolent on the floor and bradycardic with heart rates as low as 42. EKG revealed sinus bradycardia with a first-degree AV block. Patient was arousable and with good pain in 1-2 word responses but fell asleep immediately. On examination patient did have pain especially in her right upper quadrant. CBC revealed hemoglobin 8.4. Ammonia level 35. BNP of 341. Remainder of laboratories are currently pending. Chest x-ray revealed right lower lobe infiltrate versus effusion. Patient did receive 60 mg total of furosemide within the past 24 hours. 3: Afebrile. Status post percutaneous cholecystostomy tube yesterday with aggressive crystalloid resuscitation. Currently resting in bed in no acute distress. Not on vasopressors. Subjective 06/26: Afebrile. A. fib with RVR overnight started on amiodarone drip. Digoxin 0.25 mg and diltiazem 10 mg given prior to initiation of amiodarone. Remains sedated on the ventilator. Possible seizure activity on EEG. Neurology is been counseled.. EPS cardiology and cardiothoracic surgery also been consulted for tachybradycardia syndrome and severe MR. Asher/neurosurgeon is clear to trickle feeds today Objective Vital Signs Date Time Temp Pulse Resp B/P (MAP) Pulse Ox O2 Delivery O2 Flow Rate FiO2 06/26/17 12:25 97 40 06/26/17 11:00 104 06/26/17 11:00 97.9 15 139/104 (116) 116/67 (83) 06/24/17 07:42 Nasal Cannula 2.00 Intake and Output 06/26/17 06/26/17 06/27/17 08:00 16:00 00:00 Intake Total 150 ml Output Total 380 ml Balance -230 ml Result Diagram: 06/26/17 0350 06/26/17 0350 Other Results Microbiology Date/Time Source Procedure Growth Status 06/24/17 20:19 Blood Peripheral Aerobic Blood Culture - Preliminary NO GROWTH IN 2 DAYS Resulted 06/24/17 20:19 Blood Peripheral Anaerobic Blood Culture - Preliminary NO GROWTH IN 2 DAYS Resulted 06/25/17 08:00 Fluid Bile Fluid Gram Stain - Final Resulted 06/25/17 08:00 Fluid Bile Fluid Body Fluid Culture - Preliminary NO GROWTH IN 24 HOURS. Resulted 06/25/17 00:54 Sputum Expectorated Sputum Gram Stain - Final Resulted 06/25/17 00:54 Sputum Expectorated Sputum Sputum Culture - Preliminary HEAVY GROWTH NORMAL RESPIRATORY DELIO... Resulted 06/25/17 01:25 Urine Catheterized Urine Legionella Antigen - Final PRESUMPTIVE NEGATIVE FOR LEGIONELLA P... Complete 06/25/17 01:25 Urine Catheterized Urine Streptococcus pneumoniae Antigen (M - Final PRESUMPTIVE NEGATIVE FOR STREPTOCOCCU... Complete Imaging Last Impressions Chest X-Ray 06/26/17 0600 Signed Impressions: Service Date/Time: Monday, June 26, 2017 05:19 - CONCLUSION: Persistent consolidation in the lower lungs. Location of the gastric tube cannot be determined on this exam. Technical limitations. Floyd Magallanes MD Head CT 06/24/17 1645 Signed Impressions: Service Date/Time: Saturday, June 24, 2017 18:00 - CONCLUSION: No acute disease. Brian Burnett MD Percutaneous Cholangiogram 06/24/17 0000 Signed Impressions: Service Date/Time: Saturday, June 24, 2017 20:36 - CONCLUSION: Uncomplicated percutaneous cholecystostomy as above. Lalo Wong MD Abdomen/Pelvis CT 06/24/17 0000 Signed Impressions: Service Date/Time: Saturday, June 24, 2017 18:05 - CONCLUSION: 1. Bibasilar patchy infiltrates (right worse than left) consistent with probable pneumonia. Clinical correlation is recommended. 2. Worsening pleural effusions which are moderate in size on the right and small on the left. 3. Diffuse peripheral perfusion defects involving the kidneys suggestive of decreased renal function or possible interval development of bilateral pyelonephritis. Clinical correlation is recommended. 4. Gallbladder wall thickening and vicarious excretion of contrast via the gallbladder. Clinical correlation is recommended to rule out cholecystitis. 5. Interval development of ascites within the abdomen. 6. Thickening of the wall of the ascending colon raising possibility of colitis. Clinical correlation is recommended. Brian Burnett MD Objective Remarks GENERAL: 57-year-old female currently orotracheally intubated SKIN: Warm and dry. No rash. Well perfused HEAD: Atraumatic. Normocephalic. EYES: Pupils equal and round about 2 mm bilaterally and brisk. No scleral icterus. No injection or drainage. ENT: No nasal bleeding or discharge. Mucous membranes pink and moist. NECK: Trachea midline. No JVD. CARDIOVASCULAR: RRR. S1, S2. No S4. Without murmur RESPIRATORY: Miss breath sounds in the bases bilaterally. No wheezing GASTROINTESTINAL: Abdomen soft, tender to palpation in the right upper quadrant and epigastric region. Cholecystostomy tube in place -40 cc brown output hypoactive bowel sounds are present MUSCULOSKELETAL: Extremities with trace lower extremity peripheral edema. No obvious deformities. 1+ edema right upper extremity NEUROLOGICAL: Arousable on the ventilator falsely. Withdraws to pain in all 4 extremities. Urinary Catheter: Yes Assessment to: Continue Ferguson insert reason: ICU Pt Getting Diuretics Vascular Central Line Catheter: Yes Assessment to: Continue Date of Insertion: Jun 24, 2017 Line: Central Venous Catheter Side: Right Location: Subclavian A/P Assessment and Plan Neuro/Psych: Acute encephalopathy likely toxic metabolic UDS positive for barbiturates Depression/anxiety Seizure questionable Currently on propofol drip at 30 mcg/kg/min for sedation while intubated with fentanyl drip if needed thousand milligrams IV 1. Currently on 5 mg IV twice daily. Repeat EEG is pending as well needed Goal of RASS -2 Daily sedation vacation Acetaminophen 650 mg by tube. every 6 hours as needed fever/pain CT brain 06/24 revealed no acute intracranial findings EEG 06/25 revealed right frontal lobe sharp activity indicative of epileptiform. Loaded with levetiracetam 1 g IV 1 followed by 500 mg IV twice daily. Repeat EEG pending Neurology consult for the recommendations. MRI brain pending Holding paroxetine unknown dosage daily home medication CV: Atrial fibrillation with RVR currently in sinus tachycardia History of atrial fibrillation currently in A. fib with RVR Hypertension Elevated BNP Lactic acidosis resolved Severe MR Severe TR Acute diastolic heart failure Tachybradycardia syndrome EKG reveals sinus bradycardia with first-degree AV block. Admission was A. fib with RVR. Currently on amiodarone drip at 0.5 mg/min. Cardiac markers troponin 0.05 2D echocardiogram revealed EF 45-50%. Decreased LV systolic function. Bilateral atrial enlargement. Severe MR and TR. Cardiology consult by [facility] with Dr. Jeffers EPS consult secondary to tachybradycardia syndrome CT surgery consult secondary to severe MR Lactate is clear CVP is 19 Resp: Acute respiratory insufficiency Right lower lobe infiltrate/pleural effusion PRVC 18/500/1.1//50 Ventilator bundle Albuterol/ipratropium aerosols every 6 hours with albuterol aerosols every 2 hours as needed for dyspnea Spontaneous breathing trials when clinically indicated Chest x-ray revealed possible right lower lobe infiltrate versus effusion GI: Epigastric/right upper quadrant pain Gastroesophageal reflux disease Hyperammonia Cholelithiasis on ultrasound 06/23 possibly acute cholecystitis Hypoalbuminemia CT abdomen/pelvis 06/23 revealed a 1 mm gallstone. No signs of cholecystitis. Otherwise unremarkable CT abdomen/pelvis 06/24 revealed right greater than left pleural effusions. Gallbladder wall thickening with voracious dye excretion, descending colon edema and bilateral perinephric stranding Status post cholecystostomy tube by IR 06/24 General surgery recommended continue cholecystostomy tube placement. Outpatient follow-up for cholecystectomy. Okay to initiate trickle feeds today. Slowly advance as tolerated. Repeat CT abdomen/pelvis with contrast if worsening symptomatology Previously patient has been on omeprazole 40 mg p.o. daily. Currently on pantoprazole 40 mg IV. daily for gastroesophageal reflux disease Docusate sodium/senna 1 tablet twice daily for bowel regimen Lactulose 30 cc daily for elevated ammonia : Ferguson catheter has been placed for accurate I's and O's and critical patient Endo: Acute hypoglycemia likely secondary to sepsis resolved Sliding-scale insulin Novulin R with Accu-Cheks every 4 hours to maintain euglycemia/low regimen Check TSH -1.76 Renal: Acute kidney injury Did receive IV contrast on admission. Negative urine eosinophils and urine electrolytes likely prerenal indices by Janet No signs of hydronephrosis on CT abdomen/pelvis 06/23. Stranding noted around bilateral kidneys 06/24. Medical renal disease versus pyelonephritis Creatinine currently 1.8 Heme: Microcytic hypochromic anemia Leukocytosis Resolved DIC We will need iron studies and Hemoccult test done during this hospitalization Self-reported negative EGD/colonoscopy in the past per prior record Transfuse 1 unit PRBCs overnight. Will give 1 FFP and 1 cryo and 10 mg of vitamin K today. Recheck coags in a.m. INR currently 1.3. PTT and fibrinogen corrected Recheck CBC this afternoon ID: Severe sepsis likely gallbladder source plus/minus UA Started on ampicillin/tazobactam with vancomycin day #3. Pertinent cultures 3/ -bile -no growth / -sputum -no growth / -blood cultures 4 -no growth / -urine -p no growth Urine Legionella pneumococcal antigens no growth Influenza negative MSK: PT evaluate and treat FEN: Hypomagnesia Replace electrolytes as clinically indicated per ICU Y protocol Access -Right subclavian CVL day #3 placed 2/28 -Right radial arterial line day #3 placed 2/28 Prophylaxis -GI -pantoprazole -DVT -SCDs/withholding pharmacological prophylaxis until after CT brain completed Critical Care: The total critical care time was 35 minutes. Time to perform other separately billable procedures was not included in the critical care time. Guillermo Pratt MD Jun 26, 2017 14:03
--- NOTE | 2017-06-26 19:23 | MB ---
cc: Stephanie Shannon MD, Dalia 0 MD DATE OF CONSULT: 06/26/2017 REASON FOR CONSULTATION: Possible seizure with abnormal EEG. HISTORY OF PRESENT ILLNESS: A 57-year-old woman admitted on 06/23/2017, presented to the ED. She came into the ED with AFib, RVR, placed on diltiazem and then metoprolol and became bradycardic. CT abdomen and pelvis revealed gallstone with cholecystitis. She apparently became more somnolent while on the goddard, bradycardiac, heart rate in the 40s, showed as first degree AV block. She was noted to have an ammonia level of 35, BNP of 341, some right lower lobe infiltrate versus effusion. She received some furosemide. On 06/25/2017, she had a cholecystostomy tube placed. She was started on an amiodarone drip overnight, placed on Digoxin. EEG showed some phase reversals. The patient was loaded with Keppra and now on a dose of 500 mg b.i.d. PAST MEDICAL HISTORY: Atrial fibrillation, anxiety and reflux. PAST SURGICAL HISTORY: Tubal ligation. HOME MEDICATIONS : Please refer to her MAR. ALLERGIES: SULFA, CIPROFLOXACIN, HYDROMORPHONE. FAMILY HISTORY: Stroke in both parents. SOCIAL HISTORY: Smoker of 1 pack a day. No illicit drugs reported. PHYSICAL EXAMINATION: VITAL SIGNS: Temperature 97.9, heart rate 91, respiratory rate 15, blood pressure 141/82, satting at 97% FIO2 of 40%. She is intubated on the ventilator, does over breathe. Pupils reactive. No gaze deviation. She is on Diprivan. She withdraws mostly in the feet to stimuli. Reflexes are trace. Does not follow any commands. Gait, cerebellar ____. LABORATORY DATA: Reviewed. IMAGING STUDIES : CT head: No acute pathology. Electroencephalogram: Slowing phase reversals. There are some sharps concerning for epileptic activity. IMPRESSION: Possible seizure-like event in a patient with atrial fibrillation and rapid ventricular response. Certainly concerning would be etiology. I recommend continuing the Keppra. I would get a followup EEG as well as an MRI of the brain. We will continue care. Further recommendations will be made. MD ARCHANA Heller//mendez , 02:37 PM , 07:05 PM
--- NOTE | 2017-06-26 19:29 | MG ---
cc: Stephanie Shannon MD, Dalia 0 MD EEG #[id number] REFERRING PHYSICIAN: Dr. Pratt. ROOM: 449 Intubated on Diprivan that was turned off at 13:12 with photic stimulation. Withdrew bilaterally. No withdrawal in upper. On 06/25/2017, her EEG showed phase reversals and sharps. Repeat study after a loading dose of Keppra 1000 mg was given. She has a history of nausea, vomiting, GERD, some bradycardia currently on antibiotics, amiodarone for AFib. DESCRIPTION OF RECORD: No sedation given. There is overall attenuation of background between some delta rhythm. With disorganized EEG she had some head jerking, leg jerking. Background is slow and then artifact is seen with her movement. At time, she has a theta frequency. There are some sharp waves seen, phase reversals noted to be over the right frontal central region. It is almost like she has some activity and then she goes into a very suppressed pattern that waxes and wanes with the phase reversals and sharps but not continuous. Photic stimulation, minimal driving response. IMPRESSION: Abnormal EEG due to sharps and phase reversals still seen. Continue her Keppra infusion. May need to change her to Cerebyx. Repeat EEG recommended for the morning. MRI is pending. MD ARCHANA Heller//mendez , 05:16 PM , 07:13 PM
[2017-06-26] MEDS: levETIRAcetam INJ 500 MG in SODIUM CHLORIDE 0.9% INJ 100 ML IV SCH (20:22)
[2017-06-26] MEDS: PANTOPRAZOLE SODIUM 40 MG VIAL IV PUSH SCH (20:22)
[2017-06-27] VITALS (13 sets, daily range): BP systolic 126–157; BP diastolic 77–110; PULSE 92–118; RESP 14–22; TEMP 97.9–98.6; O2SAT 95–99
[2017-06-27] MEDS: PIPERACIL-TAZO 3.375 GM PREMIX 50 ML IV SCH ×4 (01:20→21:07)
[2017-06-27] MEDS: AMIODARONE INJ 450 MG in SODIUM CHLOR 0.9% (EXCEL) INJ 241 ML IV PRN ×2 (03:11→13:10)
[2017-06-27] MEDS: INSULIN NovoLIN REGULAR SUPPLEMENTAL SCALE SQ SCH ×6 (03:21→20:00)
[2017-06-27] MEDS: CHLORHEXIDINE GLUCONATE 2 % 1 PACK (2 CLOTHS) TOP SCH (03:31)
[2017-06-27] MEDS: RESP: ALBUTEROL 2.5 MG/IPRATROPIUM 0.5 MG NEB (SCH) INH ×4 (04:08→20:19)
[2017-06-27 04:30] LABS: AUTOMATED NEUTROPHIL # 8.5 TH/MM3 (1.8-7.7); BASOPHIL % 0.4 % (0.0-2.0); EOSINOPHIL # 0.1 TH/MM3 (0-0.4); EOSINOPHIL % 0.8 % (0.0-4.0); HEMATOCRIT 26.3 % (35.0-46.0); LYMPH % 10.7 % (9.0-44.0); LYMPHOCYTE # 1.1 TH/MM3 (1.0-4.8); MEAN CELL VOLUME 72.7 FL (80.0-100.0); MEAN CORPUSCULAR HEMOGLOBIN 22.2 PG (27.0-34.0); MEAN CORPUSCULAR HGB CONC 30.6 % (32.0-36.0); MEAN PLATELET VOLUME 8.5 FL (7.0-11.0); MONO % 6.5 % (0.0-8.0); MONOCYTE # 0.7 TH/MM3 (0-0.9); NEUT % 81.6 % (16.0-70.0); PLATELET COUNT 150 TH/MM3 (150-450); RED BLOOD COUNT 3.61 MIL/MM3 (4.00-5.30); RED CELL DISTRIBUTION WIDTH 21.8 % (11.6-17.2); WHITE BLOOD COUNT 10.3 TH/MM3 (4.0-11.0)
[2017-06-27 05:01] LABS: AST (GOT) 86 U/L (15-37); BICARBONATE 27.2 MEQ/L (21.0-32.0); BLOOD UREA NITROGEN 47 MG/DL (7-18); CALCIUM 8.4 MG/DL (8.5-10.1); CHLORIDE 109 MEQ/L (98-107); CREATININE 1.51 MG/DL (0.50-1.00); GLOMERULAR FILTRATION RATE 35 ML/MIN (>89); GLUCOSE,RANDOM 105 MG/DL (74-106); MAGNESIUM 2.1 MG/DL (1.5-2.5); SODIUM (NA) 146 MEQ/L (136-145)
[2017-06-27 05:05] LABS: ALKALINE PHOSPHATASE 76 U/L (45-117); ALT (GPT) 58 U/L (10-53); PHOSPHORUS 3.9 MG/DL (2.5-4.9); TOTAL BILIRUBIN ADULT 0.8 MG/DL (0.2-1.0)
--- NOTE | 2017-06-27 05:25 | RADRPT ---
EXAM DATE/TIME: 06/27/2017 04:49 [facility] COMPARISON: CHEST SINGLE AP, June 26, 2017, 5:19. INDICATIONS : Shortness of breath, possible pulmonary disease. MEDICAL HISTORY : Anemia SURGICAL HISTORY : Tubal ligation. ENCOUNTER: Subsequent ACUITY: 4 - 6 days PAIN SCORE: Non-responsive. LOCATION: Bilateral chest FINDINGS: ET tube tip well above the ricky. Gastric tube tip and side-port project within the stomach. Right central line tip in the distal superior vena cava. Persistent consolidation and hazy opacity in the mid and lower lungs bilaterally, stable in severity. CONCLUSION: Persistent minimal lower lung consolidation, stable in severity from prior. Floyd Magallanes MD on June 27, 2017 at 5:23 Board Certified Radiologist. This report was verified electronically.
[2017-06-27] MEDS: PROPOFOL 1000 MG/100 ML INJ 100 ML IV PRN ×2 (05:40→23:08)
[2017-06-27] MEDS: ARTIFICIAL TEARS OPTH SOLN 15 ML BTL EACH EYE SCH ×3 (05:51→21:04)
[2017-06-27] MEDS ORDERED: FUROSEMIDE 40 MG/4 ML VIAL IV PUSH ONE (08:15)
[2017-06-27] MEDS ORDERED: POTASSIUM CHLORIDE INJ 30 MEQ in SODIUM CHLORIDE 0.9% INJ 100 ML IV-CENTRAL ONE (08:15)
--- NOTE | 2017-06-27 08:19 | HHI.CCPN ---
Subjective Remarks/Hospital Course 57-year-old female. Date of admission 06/23/2017. Date of consultation 2017. Past medical history includes Patient originally presented to [facility] ED in atrial fibrillation with rapid ventricular response. Patient was initially started on a diltiazem drip and then was switched over to metoprolol tartrate 50 mg every 8 hours. After conversion, patient became bradycardic. CT abdomen/pelvis revealed a 1 mm gallstone without signs of cholecystitis. Otherwise unremarkable. The patient became more somnolent on the floor and bradycardic with heart rates as low as 42. EKG revealed sinus bradycardia with a first-degree AV block. Patient was arousable and with good pain in 1-2 word responses but fell asleep immediately. On examination patient did have pain especially in her right upper quadrant. CBC revealed hemoglobin 8.4. Ammonia level 35. BNP of 341. Remainder of laboratories are currently pending. Chest x-ray revealed right lower lobe infiltrate versus effusion. Patient did receive 60 mg total of furosemide within the past 24 hours. 3: Afebrile. Status post percutaneous cholecystostomy tube yesterday with aggressive crystalloid resuscitation. Currently resting in bed in no acute distress. Not on vasopressors. 32: Afebrile. A. fib with RVR overnight started on amiodarone drip. Digoxin 0.25 mg and diltiazem 10 mg given prior to initiation of amiodarone. Remains sedated on the ventilator. Possible seizure activity on EEG. Neurology is been counseled.. EPS cardiology and cardiothoracic surgery also been consulted for tachybradycardia syndrome and severe MR. Dr. Sterling/neurosurgeon is clear to trickle feeds today Subjective 33: Afebrile. EEG revealed continuous sharp spikes involving right frontal central region. Remains on levetiracetam at 500 mg every 12 hours. Noted possible switch to fosphenytoin per EEG report. Currently on propofol drip at 30 mcg/kg/min. Withdraws bilateral lower exams. Does not withdraw upper extremities currently. MRI brain currently pending. Tolerating trickle feeds at 10 cc an hour. Objective Vital Signs Date Time Temp Pulse Resp B/P (MAP) Pulse Ox O2 Delivery O2 Flow Rate FiO2 06/27/17 04:08 98 40 3/3/18 03:11 84 136/85 06/27/17 03:00 97.9 14 06/24/17 07:42 Nasal Cannula 2.00 Intake and Output 06/27/17 06/27/17 06/28/17 08:00 16:00 00:00 Intake Total 1197 ml Output Total 770 ml Balance 427 ml Result Diagram: 06/27/17 0415 06/27/17 0415 Other Results Microbiology Date/Time Source Procedure Growth Status 06/24/17 20:19 Blood Peripheral Aerobic Blood Culture - Preliminary NO GROWTH IN 2 DAYS Resulted 06/24/17 20:19 Blood Peripheral Anaerobic Blood Culture - Preliminary NO GROWTH IN 2 DAYS Resulted 06/25/17 08:00 Fluid Bile Fluid Gram Stain - Final Resulted 06/25/17 08:00 Fluid Bile Fluid Body Fluid Culture - Preliminary NO GROWTH IN 24 HOURS. Resulted 06/25/17 00:54 Sputum Expectorated Sputum Gram Stain - Final Resulted 06/25/17 00:54 Sputum Expectorated Sputum Sputum Culture - Preliminary HEAVY GROWTH NORMAL RESPIRATORY DELIO... Resulted 06/25/17 01:25 Urine Catheterized Urine Legionella Antigen - Final PRESUMPTIVE NEGATIVE FOR LEGIONELLA P... Complete 06/25/17 01:25 Urine Catheterized Urine Streptococcus pneumoniae Antigen (M - Final PRESUMPTIVE NEGATIVE FOR STREPTOCOCCU... Complete Imaging Last Impressions Chest X-Ray 06/26/17 0600 Signed Impressions: Service Date/Time: Monday, June 26, 2017 05:19 - CONCLUSION: Persistent consolidation in the lower lungs. Location of the gastric tube cannot be determined on this exam. Technical limitations. Floyd Magallanes MD Head CT 06/24/17 1645 Signed Impressions: Service Date/Time: Saturday, June 24, 2017 18:00 - CONCLUSION: No acute disease. Brian Burnett MD Percutaneous Cholangiogram 06/24/17 0000 Signed Impressions: Service Date/Time: Saturday, June 24, 2017 20:36 - CONCLUSION: Uncomplicated percutaneous cholecystostomy as above. Lalo Wong MD Abdomen/Pelvis CT 06/24/17 0000 Signed Impressions: Service Date/Time: Saturday, June 24, 2017 18:05 - CONCLUSION: 1. Bibasilar patchy infiltrates (right worse than left) consistent with probable pneumonia. Clinical correlation is recommended. 2. Worsening pleural effusions which are moderate in size on the right and small on the left. 3. Diffuse peripheral perfusion defects involving the kidneys suggestive of decreased renal function or possible interval development of bilateral pyelonephritis. Clinical correlation is recommended. 4. Gallbladder wall thickening and vicarious excretion of contrast via the gallbladder. Clinical correlation is recommended to rule out cholecystitis. 5. Interval development of ascites within the abdomen. 6. Thickening of the wall of the ascending colon raising possibility of colitis. Clinical correlation is recommended. Brian Burnett MD Objective Remarks GENERAL: 57-year-old female currently orotracheally intubated SKIN: Warm and dry. No rash. Well perfused HEAD: Atraumatic. Normocephalic. EYES: Pupils equal and round about 2 mm bilaterally and brisk. No scleral icterus. No injection or drainage. ENT: No nasal bleeding or discharge. Mucous membranes pink and moist. NECK: Trachea midline. No JVD. CARDIOVASCULAR: RRR. S1, S2. No S4. Without murmur RESPIRATORY: Miss breath sounds in the bases bilaterally. No wheezing GASTROINTESTINAL: Abdomen soft, tender to palpation in the right upper quadrant and epigastric region. Cholecystostomy tube in place -40 cc brown output hypoactive bowel sounds are present MUSCULOSKELETAL: Extremities with trace lower extremity peripheral edema. No obvious deformities. 1+ edema right upper extremity NEUROLOGICAL: Possible corneal reflex. Positive gag and cough. Withdraws to pain bilateral lower extremities. Urinary Catheter: Yes Assessment to: Continue Ferguson insert reason: ICU Pt Getting Diuretics Vascular Central Line Catheter: Yes Assessment to: Continue Date of Insertion: Jun 24, 2017 Line: Central Venous Catheter Side: Right Location: Subclavian A/P Assessment and Plan Neuro/Psych: Acute encephalopathy likely toxic metabolic UDS positive for barbiturates Depression/anxiety Seizure questionable Currently on propofol drip at 30 mcg/kg/min for sedation while intubated with fentanyl drip if needed Goal of RASS -2 Daily sedation vacation Acetaminophen 650 mg by tube. every 6 hours as needed fever/pain CT brain 06/24 revealed no acute intracranial findings EEG 06/25 revealed right frontal lobe sharp activity indicative of epileptiform. Loaded with levetiracetam 1 g IV 1 on 06/26 followed by 500 mg IV twice daily. Repeat EEG 06/26 revealed continuous sharps in right frontal region Neurology consult for the recommendations. MRI brain pending Holding paroxetine unknown dosage daily home medication CV: Atrial fibrillation with RVR currently in sinus tachycardia History of atrial fibrillation currently in A. fib with RVR Hypertension Elevated BNP Lactic acidosis resolved Severe MR Severe TR Acute diastolic heart failure Tachybradycardia syndrome EKG reveals sinus bradycardia with first-degree AV block. Admission was A. fib with RVR. Currently on amiodarone drip at 0.5 mg/min. Cardiac markers troponin 0.05 2D echocardiogram revealed EF 45-50%. Decreased LV systolic function. Bilateral atrial enlargement. Severe MR and TR. Cardiology consult by [facility] with Dr. Jeffers EPS consult secondary to tachybradycardia syndrome CT surgery consulted to evaluate severe MR Lactate is cleared CVP is 17 We will diurese again with 40 mg furosemide 1 today 06/27. Resp: Acute respiratory insufficiency Right lower lobe infiltrate/pleural effusion PRVC 18/500/1.05/01/39 Ventilator bundle Albuterol/ipratropium aerosols every 6 hours with albuterol aerosols every 2 hours as needed for dyspnea Spontaneous breathing trials when clinically indicated Chest x-ray revealed possible right lower lobe infiltrate versus effusion. Repeat 06/28 GI: Epigastric/right upper quadrant pain Gastroesophageal reflux disease Hyperammonia Cholelithiasis on ultrasound 06/23 possibly acute cholecystitis Hypoalbuminemia CT abdomen/pelvis 06/23 revealed a 1 mm gallstone. No signs of cholecystitis. Otherwise unremarkable CT abdomen/pelvis 06/24 revealed right greater than left pleural effusions. Gallbladder wall thickening with voracious dye excretion, descending colon edema and bilateral perinephric stranding Status post cholecystostomy tube by IR 06/24 General surgery recommended continue cholecystostomy tube placement. Outpatient follow-up for cholecystectomy. Okay to initiate trickle feeds today. Currently on Nepro at 10 cc an hour. Advance to 20 cc today. Nutrition recommends Jevity 1.5 goal 50 cc an hour Repeat CT abdomen/pelvis with contrast if worsening symptomatology Previously patient has been on omeprazole 40 mg p.o. daily. Currently on pantoprazole 40 mg IV. daily for gastroesophageal reflux disease Docusate sodium/senna 1 tablet twice daily for bowel regimen Lactulose 30 cc daily for elevated ammonia. Repeat ammonia level in a.m. 06/28 : Ferguson catheter has been placed for accurate I's and O's and critical patient Endo: Acute hypoglycemia likely secondary to sepsis resolved Sliding-scale insulin Novulin R with Accu-Cheks every 4 hours to maintain euglycemia/low regimen TSH -1.76 Renal: Acute kidney injury Did receive IV contrast on admission. Negative urine eosinophils and urine electrolytes likely prerenal indices by Janet No signs of hydronephrosis on CT abdomen/pelvis 06/23. Stranding noted around bilateral kidneys 06/24. Medical renal disease versus pyelonephritis Creatinine currently 1.5 Heme: Microcytic hypochromic anemia Leukocytosis Resolved DIC We will need iron studies and Hemoccult test done during this hospitalization Self-reported negative EGD/colonoscopy in the past per prior record Transfuse 1 unit PRBCs overnight. Will give 1 FFP and 1 cryo and 10 mg of vitamin K today. Recheck coags in a.m. INR currently 1.3. PTT and fibrinogen corrected Recheck CBC in a.m. 3/ ID: Severe sepsis likely gallbladder source plus/minus UA Started on ampicillin/tazobactam with vancomycin day #4 Pertinent cultures 3/ -bile -no growth 06/25 -sputum -no growth 06/24 -blood cultures 4 -no growth 06/24 -urine -p no growth Urine Legionella pneumococcal antigens no growth Influenza negative MSK: PT evaluate and treat FEN: Hypernatremia 1 L of quarter normal saline today 1. Replace electrolytes as clinically indicated per ICU electrolyte protocol Access -Right subclavian CVL day #4 placed 06/24. Continue -Right radial arterial line day #4 placed 06/24. Discontinued 3/ Prophylaxis -GI -pantoprazole -DVT -SCDs/heparin subcu Critical Care: The total critical care time was 35 minutes. Time to perform other separately billable procedures was not included in the critical care time. Discussed with Yaneth Garcia. Discussed in detail neurological condition including seizure activity on EEG, imaging being performed, medication adjustments and neurology consultation. Discussed cholecystostomy tube in follow-up with general surgery most likely as an outpatient with current medical condition improves. Care plan discussed and all questions answered. Guillermo Pratt MD Jun 27, 2017 08:19
[2017-06-27] MEDS ORDERED: EPINEPHrine HCL (1:10,000) 1 MG/10 ML SYRINGE ONE (08:34)
[2017-06-27] MEDS ORDERED: ATROPINE SULFATE 1 MG/10 ML SYRINGE ONE (08:34)
[2017-06-27] MEDS: CHLORHEXIDINE 0.12% (ORAL KIT) 15 ML CUP MT SCH ×2 (08:36→21:05)
[2017-06-27] MEDS: levETIRAcetam INJ 500 MG in SODIUM CHLORIDE 0.9% INJ 100 ML IV SCH ×2 (08:37→21:04)
[2017-06-27] MEDS: DOCUSATE SODIUM 50 MG/SENNA 8.6 MG TAB PO SCH ×2 (08:37→21:03)
[2017-06-27] MEDS: SODIUM CHLORIDE 0.9% FLUSH 10 ML FLUSH IV FLUSH SCH ×2 (08:37→21:05)
[2017-06-27] MEDS: HEPARIN SODIUM - SQ 10,000 UNITS/ML VIAL SQ SCH ×2 (08:38→21:03)
[2017-06-27] MEDS ORDERED: SODIUM CHLORIDE 23.4% INJ 38.5 MEQ in WATER STERILE FOR INJ 1,000 ML IV SCH (10:00)
--- NOTE | 2017-06-27 10:47 | RADRPT ---
EXAM DATE/TIME: 06/27/2017 10:00 [place] COMPARISON: CT BRAIN W/O CONTRAST, June 24, 2017, 18:00. INDICATIONS : Altered mental status. Does not follow commands off sedation. MEDICAL HISTORY : None. SURGICAL HISTORY : Tubal ligation. ENCOUNTER: Initial ACUITY: 1 day PAIN SCORE: 0/10 LOCATION: cranial TECHNIQUE: Multiplanar, multisequence MRI of the brain was performed without contrast. FINDINGS: CEREBRUM: The ventricles are normal for age. No evidence of midline shift, mass lesion, hemorrhage or acute in farction. No extraaxial fluid collections are seen. The pituitary gland and suprasellar cistern are normal in configuration. WHITE MATTER: A few small scattered foci of high flair signal involving the periventricular white matter of both ce rebral hemispheres. POSTERIOR FOSSA: The cerebellum and brainstem are intact. The 4th ventricle is midline. The cerebellopontine angle is unremarkable. The cerebellar tonsils are normal in position. DIFFUSION IMAGING: No focal areas of restricted diffusion are seen. No evidence of acute infarction. EXTRACRANIAL: The visualized portions of the orbits and paranasal sinuses are unremarkable. CONCLUSION: 1. No acute intracranial abnormality. 2. Mild chronic small vessel ischemic change. Floyd Tiwari Jr., MD on June 27, 2017 at 10:33 Board Certified Radiologist. This report was verified electronically.
--- NOTE | 2017-06-27 10:48 | MB ---
cc: Dewayne Arellano MD, Hanscy 0 MD Pratt,Guillermo Aden MD DATE OF CONSULT: 06/26/2017 REASON FOR CONSULTATION: Tachybrady syndrome. HISTORY OF PRESENT ILLNESS: Mrs. Mercer is a 57-year-old female with history of atrial fibrillation. Patient is on Xarelto. She smokes a pack of cigarettes a day. She was admitted due to epigastric pain and shortness of breath. She was in atrial fibrillation. She had difficulty to awake. She was intubated, put on mechanical ventilation. She was evaluated by Dr. Jeffers, episode of tachybrady syndrome. I was consulted for evaluation and management. The chart was reviewed. The patient was evaluated. Most information obtained from medical record. ALLERGIES: SULFA, CIPROFLOXACIN, HYDROMORPHONE. SOCIAL HISTORY: She smokes a pack of cigarettes a day. FAMILY HISTORY: Noncontributory to her current medical condition. MEDICATIONS: Currently she is on Keppra, Zosyn, potassium, propofol, vancomycin, digoxin, Cardizem IV, Lasix, Zofran. REVIEW OF SYSTEMS: Cannot be obtained. Patient on mechanical ventilation. PHYSICAL EXAMINATION: GENERAL: Sedated on mechanical ventilation. VITAL SIGNS: Blood pressure 141/82, pulse around 90 irregular, respiratory rate 20. LUNGS: Ventilated. CARDIOVASCULAR: S1, S2 irregular, tachycardic. ABDOMEN: Soft, no mass. EXTREMITIES: No edema. CARDIOLOGY STUDIES: Electrocardiogram reveals atrial fibrillation, diffuse ST changes. LABORATORY DATA: Hemoglobin 7.8, white blood cells 11.1, potassium 3.8, creatinine 1.82. ASSESSMENT AND RECOMMENDATION: Mrs. Mercer has atrial fibrillation. She has tachybrady syndrome, heart rate very difficult to control. Tachycardia may be most likely due to anemia and infection. She is on Cardizem and digoxin. I discussed the case extensively also with Dr. Jeffers. At this point, my recommendation is continue with current management. If heart rate cannot be controlled and patient needs a negative chronotropic medication and develops severe bradycardia then pacing support will be considered, but at this point medical management and observation. I will follow her during hospitalization. Dewayne Arellano MD HS/SA/ , 07:29 PM , 11:29 PM
[2017-06-27] MEDS ORDERED: PHARMACY ORDERED LAB ONE (11:45)
[2017-06-27] MEDS: VANCOMYCIN INJ 1,500 MG in SODIUM CHLORID 0.9% 500 ML INJ 500 ML IV SCH (12:26)
--- NOTE | 2017-06-27 16:12 | MG ---
cc: Stephanie Shannon MD EEG #: [id number] This is a followup EEG. Room 449. Intubated, sedated, with Diprivan at 50 mcg, unable to turn off, patient was moving continuously. Deep tactile stimulation was not done. EEG 32 showed abnormalities consistent with epileptic discharges. Admitted with atrial fibrillation with RVR, some bradycardia. MRI was done, there is no stroke. Currently on Keppra. I believe she was also loaded with Cerebyx. Overall background slow, primarily with delta frequency. There is some leg jerking with some slow wave activity noted and some sharps bilateral. There continues to be sharp wave activity in the recording bilateral, not continuous but paroxysmal. Photic stimulation does not look like a driving response, but then sharps during that portion as well. IMPRESSION: Abnormal EEG due to diffuse sharp wave activity consistent with possible epileptic activity. Clinical correlation. Stephanie Shannon MD DF/cc , 02:13 PM , 04:11 PM
--- NOTE | 2017-06-27 16:44 | PD.CARD.PN ---
Subjective Subjective Remarks intubated, sedated Objective Medications Current Medications Medications (Trade) Dose Ordered Sig/Salud Route Start Time Stop Time Status Last Admin (Narcan Inj) 0.4 mg UNSCH PRN IV PUSH 06/23/17 20:30 Potassium Chloride 100 ml @ 25 mls/hr Q2H PRN IV 06/24/17 17:00 06/25/17 02:34 Potassium Chloride 100 ml @ 50 mls/hr Q2H PRN IV 06/24/17 17:00 (K-Lyte Cl Eff) 50 meq UNSCH PRN PO 06/24/17 17:00 Potassium Chloride 100 ml @ 25 mls/hr UNSCH PRN IV 06/24/17 17:00 Potassium Chloride 100 ml @ 50 mls/hr Q2H PRN IV 06/24/17 17:00 Magnesium Sulfate 4 gm/Sodium Chloride 100 ml @ 50 mls/hr UNSCH PRN IV 06/24/17 17:00 (Mag-Ox) 800 mg UNSCH PRN PO 06/24/17 17:00 Magnesium Sulfate 2 gm/Sodium Chloride 100 ml @ 50 mls/hr UNSCH PRN IV 06/24/17 17:00 06/25/17 07:53 (K-Phos) 2,000 mg Q4H PRN PO 06/24/17 17:00 Sodium Phosphate 30 mmol/Sodium Chloride 250 ml @ 42 mls/hr UNSCH PRN IV 06/24/17 17:00 (K-Phos) 2,000 mg UNSCH PRN PO/TUBE 06/24/17 17:00 Potassium Phosphate 30 mmol/ Sodium Chloride 260 ml @ 42 mls/hr UNSCH PRN IV 06/24/17 17:00 (D50w (Vial) Inj) 50 ml UNSCH PRN IV PUSH 06/24/17 17:00 (Glucagon Inj) 1 mg UNSCH PRN OTHER 06/24/17 17:00 (NS Flush) 2 ml UNSCH PRN IV FLUSH 06/24/17 17:00 (NS Flush) 2 ml BID IV FLUSH 06/24/17 21:00 06/27/17 08:37 (Zofran Inj) 4 mg Q6H PRN IV PUSH 06/24/17 17:00 (Duoneb Neb) 1 ampule Q6HR NEB INH 2/28/18 22:00 06/27/17 16:18 (Albuterol Neb) 2.5 mg Q2HR NEB PRN INH 06/24/17 17:00 Miscellaneous Information 1 Q361D XX 06/24/17 18:00 (Chlorhexidine 2% Cloth) 3 pack Taper DAILY@04 TOP 06/25/17 04:00 06/21/18 03:59 06/27/17 03:31 (Chlorhexidine 2% Cloth) 3 pack UNSCH PRN TOP 06/24/17 17:00 (Keiry-Colace) 1 tab BID PO 06/24/17 21:00 06/27/17 08:37 (Milk Of Magnesia Liq) 30 ml Q12H PRN PO 06/24/17 17:00 (Senokot) 17.2 mg Q12H PRN PO 06/24/17 17:00 (Dulcolax Supp) 10 mg DAILY PRN RECTAL 06/24/17 17:00 (Lactulose Liq) 30 ml DAILY PRN PO 06/24/17 17:00 Piperacillin Sod/ Tazobactam Sod 50 ml @ 100 mls/hr Q6H IV 06/24/17 20:00 06/27/17 13:12 Pharmacy Profile Note 0 ml @ 0 mls/hr UNSCH OTHER 06/24/17 18:00 (Peridex 0.12% Liq) 15 ml BID@08,20 MT 06/24/17 20:00 06/27/17 08:36 Propofol 100 ml @ 2.13 mls/hr TITRATE PRN IV 06/24/17 19:30 06/27/17 05:40 Fentanyl Citrate 250 ml @ 5 mls/hr TITRATE PRN IV 06/24/17 19:30 Norepinephrine Bitartrate 250 ml @ 7.5 mls/hr TITRATE PRN IV 06/24/17 19:30 (Brethine Inj) 1 mg UNSCH PRN SQ 06/24/17 19:30 (Tears Naturale Opth Soln) 1 drop Q8HR EACH EYE 06/24/17 22:00 06/27/17 13:10 (NovoLIN R SUPPLEMENTAL SCALE) 1 Q4HR SQ 06/24/17 20:00 (Protonix Inj) 40 mg Q24H IV PUSH 06/24/17 20:00 06/26/17 20:22 (Heparin Inj) 5,000 units Q12HR SQ 06/25/17 07:00 06/27/17 08:38 (Tylenol 650 Mg/ 20 ml Liq) 650 mg Q6H PRN NG 06/25/17 08:45 Vancomycin HCl 1500 mg/Sodium Chloride 515 ml @ 250 mls/hr Q24H IV 06/25/17 12:00 06/27/17 12:26 Amiodarone HCl 450 mg/Sodium Chloride 250 ml @ 33.33 mls/ hr Q7H31M PRN IV 06/26/17 04:15 06/27/17 13:10 Levetriacetam 500 mg/Sodium Chloride 105 ml @ 420 mls/hr Q12HR IV 06/26/17 21:00 06/27/17 08:37 Sodium Chloride 38.5 meq/Sterile Water 1,009.625 ml @ 30 mls/hr Q24H IV 06/27/17 10:00 06/28/17 09:59 06/27/17 09:12 Miscellaneous Information SPECIFIC LAB TO BE DRAWN:[facility]... ONCE ONCE .XX 06/29/17 11:45 06/29/17 11:46 Vital Signs / I&O Vital Signs Date Time Temp Pulse Resp B/P (MAP) Pulse Ox O2 Delivery O2 Flow Rate FiO2 06/27/17 16:20 99 40 06/27/17 16:00 40 06/27/17 15:22 98.0 118 14 157/110 (126) 98 06/27/17 15:00 98 06/27/17 13:15 96 40 06/27/17 13:10 88 150/71 06/27/17 12:00 98.0 118 14 157/110 (126) 98 06/27/17 12:00 40 06/27/17 12:00 113 06/27/17 08:51 99 40 06/27/17 08:00 40 06/27/17 08:00 97.9 94 14 126/82 (97) 98 Arterial Line 06/27/17 07:00 94 06/27/17 04:08 98 40 06/27/17 04:00 40 06/27/17 03:11 84 136/85 06/27/17 03:00 97 06/27/17 03:00 97.9 95 14 131/77 (95) 98 128/78 (95) 06/27/17 00:00 40 06/26/17 23:01 98 40 06/26/17 23:00 98.4 77 14 122/84 (97) 98 121/67 (85) 06/26/17 23:00 93 06/26/17 20:00 40 06/26/17 19:39 97 40 06/26/17 19:00 98.4 100 15 124/78 (93) 97 117/64 (81) 06/26/17 19:00 100 06/26/17 17:19 98 40 I/O 06/26/17 06/26/17 06/26/17 06/27/17 06/27/17 06/27/17 07:00 15:00 23:00 07:00 15:00 23:00 Intake Total 650 ml 300 ml 260 ml 1197 ml 630 ml Output Total 380 ml 1855.0 ml 770 ml 5.0 ml Balance 270 ml 300 ml -1595.0 ml 427 ml 625.0 ml Intake Oral 0 ml IV Total 650 ml 300 ml 250 ml 1077 ml 630 ml Tube Feeding 120 ml Tube Irrigant 10 ml Output Urine Total 210 ml 1700 ml 630 ml Gastric Drainage Total 20 ml Tube Feeding Residual Discard 5.0 ml 5.0 ml Drainage Total 150 ml 150 ml 140 ml # Bowel Movements 0 0 Physical Exam GENERAL: SKIN: Warm and dry. HEAD: Normocephalic. EYES: No scleral icterus. No injection or drainage. NECK: Supple, trachea midline. No JVD or lymphadenopathy. CARDIOVASCULAR: Regular rate and rhythm without murmurs, gallops, or rubs. RESPIRATORY: Breath sounds equal bilaterally. No accessory muscle use. GASTROINTESTINAL: Abdomen soft, non-tender, nondistended. MUSCULOSKELETAL: No cyanosis, or edema. BACK: Nontender without obvious deformity. No CVA tenderness. Laboratory Laboratory Tests Test 06/27/17 04:15 06/27/17 11:40 White Blood Count 10.3 TH/MM3 Red Blood Count 3.61 MIL/MM3 Hemoglobin 8.0 GM/DL Hematocrit 26.3 % Mean Corpuscular Volume 72.7 FL Mean Corpuscular Hemoglobin 22.2 PG Mean Corpuscular Hemoglobin Concent 30.6 % Red Cell Distribution Width 21.8 % Platelet Count 150 TH/MM3 Mean Platelet Volume 8.5 FL Neutrophils (%) (Auto) 81.6 % Lymphocytes (%) (Auto) 10.7 % Monocytes (%) (Auto) 6.5 % Eosinophils (%) (Auto) 0.8 % Basophils (%) (Auto) 0.4 % Neutrophils # (Auto) 8.5 TH/MM3 Lymphocytes # (Auto) 1.1 TH/MM3 Monocytes # (Auto) 0.7 TH/MM3 Eosinophils # (Auto) 0.1 TH/MM3 Basophils # (Auto) 0.0 TH/MM3 CBC Comment DIFF FINAL Differential Comment Blood Urea Nitrogen 47 MG/DL Creatinine 1.51 MG/DL Random Glucose 105 MG/DL Total Protein 6.0 GM/DL Albumin 3.0 GM/DL Calcium Level 8.4 MG/DL Phosphorus Level 3.9 MG/DL Magnesium Level 2.1 MG/DL Alkaline Phosphatase 76 U/L Aspartate Amino Transf (AST/SGOT) 86 U/L Alanine Aminotransferase (ALT/SGPT) 58 U/L Total Bilirubin 0.8 MG/DL Sodium Level 146 MEQ/L Potassium Level 3.7 MEQ/L Chloride Level 109 MEQ/L Carbon Dioxide Level 27.2 MEQ/L Anion Gap 10 MEQ/L Estimat Glomerular Filtration Rate 35 ML/MIN Lactic Acid Level 1.2 mmol/L Vancomycin Level Trough 20.2 MCG/ML Imaging Last 24 hours Impressions Chest X-Ray 06/27/17 0600 Signed Impressions: Service Date/Time: Tuesday, June 27, 2017 04:49 - CONCLUSION: Persistent minimal lower lung consolidation, stable in severity from prior. Floyd Magallanes MD Brain MRI 06/27/17 0000 Signed Impressions: Service Date/Time: Tuesday, June 27, 2017 10:00 - CONCLUSION: 1. No acute intracranial abnormality. 2. Mild chronic small vessel ischemic change. Floyd Tiwari Jr., MD Assessment and Plan Problem List: (1) Sepsis ICD Codes: A41.9 - Sepsis, unspecified organism (2) Cardiomyopathy ICD Codes: I42.9 - Cardiomyopathy, unspecified (3) Mitral regurgitation ICD Codes: I34.0 - Nonrheumatic mitral (valve) insufficiency (4) Bradycardia ICD Codes: R00.1 - Bradycardia, unspecified (5) Atrial fibrillation with RVR ICD Codes: I48.91 - Unspecified atrial fibrillation Status: Acute (6) Anemia ICD Codes: D64.9 - Anemia, unspecified Status: Acute (7) Pulmonary edema ICD Codes: J81.1 - Chronic pulmonary edema (8) Cholecystitis ICD Codes: K81.9 - Cholecystitis, unspecified Assessment and Plan 1.) Cardiomyopathy - beta jude and clayton held due to septic shock 2.) Afib - consult Dr Arellano, due to tachy-joe syndrome, av gosia bloackade held due to bradycardia, ac held due to severe anemia of indeterminate origin, on iv amio 3.) Severe mr - consult ct surgery to determine if patient is a surgical candidate for potential mvr and cath if she is when hemodynamically stable, patient consents and rx plan for cholecystitis defined Problem Qualifiers (1) Anemia: Qualified Codes: D64.9 - Anemia, unspecified Gianni Jeffers MD Jun 27, 2017 16:44
[2017-06-27] MEDS ORDERED: MIDAZOLAM 100 MG/100 ML INJ 100 ML IV PRN (18:45)
[2017-06-27] MEDS ORDERED: FOSPHENYTOIN INJ 1,000 MGPE in SODIUM CHLORIDE 0.9% INJ 50 ML IV ONE (19:00)
[2017-06-27] MEDS: PANTOPRAZOLE SODIUM 40 MG VIAL IV PUSH SCH (21:04)
[2017-06-27] MEDS: FOSPHENYTOIN SODIUM 100 MG PE/2 ML VIAL IV SCH (22:00)
[2017-06-28] VITALS (14 sets, daily range): BP systolic 132–159; BP diastolic 84–100; PULSE 102–118; RESP 14–16; TEMP 97.9–98.6; O2SAT 94–98
[2017-06-28] MEDS: PIPERACIL-TAZO 3.375 GM PREMIX 50 ML IV SCH ×4 (02:42→20:16)
[2017-06-28] MEDS: RESP: ALBUTEROL 2.5 MG/IPRATROPIUM 0.5 MG NEB (SCH) INH ×4 (03:46→19:55)
[2017-06-28] MEDS: CHLORHEXIDINE GLUCONATE 2 % 1 PACK (2 CLOTHS) TOP SCH (04:00)
[2017-06-28] MEDS: INSULIN NovoLIN REGULAR SUPPLEMENTAL SCALE SQ SCH ×6 (04:00→20:00)
[2017-06-28 05:19] LABS: AUTOMATED NEUTROPHIL # 6.6 TH/MM3 (1.8-7.7); BASOPHIL % 0.2 % (0.0-2.0); EOSINOPHIL # 0.1 TH/MM3 (0-0.4); EOSINOPHIL % 1.3 % (0.0-4.0); HEMATOCRIT 25.3 % (35.0-46.0); HEMOGLOBIN 7.7 GM/DL (11.6-15.3); LYMPHOCYTE # 0.8 TH/MM3 (1.0-4.8); MEAN CELL VOLUME 72.1 FL (80.0-100.0); MEAN CORPUSCULAR HEMOGLOBIN 22.1 PG (27.0-34.0); MEAN CORPUSCULAR HGB CONC 30.6 % (32.0-36.0); MEAN PLATELET VOLUME 8.3 FL (7.0-11.0); MONO % 6.5 % (0.0-8.0); MONOCYTE # 0.5 TH/MM3 (0-0.9); PLATELET COUNT 134 TH/MM3 (150-450); WHITE BLOOD COUNT 8.1 TH/MM3 (4.0-11.0)
[2017-06-28 05:51] LABS: ALBUMIN 2.7 GM/DL (3.4-5.0); ALKALINE PHOSPHATASE 76 U/L (45-117); ALT (GPT) 51 U/L (10-53); AST (GOT) 62 U/L (15-37); BICARBONATE 28.5 MEQ/L (21.0-32.0); BLOOD UREA NITROGEN 31 MG/DL (7-18); CALCIUM 8.3 MG/DL (8.5-10.1); CHLORIDE 108 MEQ/L (98-107); CREATININE 0.98 MG/DL (0.50-1.00); GLOMERULAR FILTRATION RATE 58 ML/MIN (>89); GLUCOSE,RANDOM 121 MG/DL (74-106); PHOSPHORUS 3.3 MG/DL (2.5-4.9); SODIUM (NA) 144 MEQ/L (136-145); TOTAL BILIRUBIN ADULT 0.7 MG/DL (0.2-1.0); TOTAL PROTEIN 5.8 GM/DL (6.4-8.2)
--- NOTE | 2017-06-28 06:10 | RADRPT ---
EXAM DATE/TIME: 06/28/2017 04:18 [place] COMPARISON: CHEST SINGLE AP, June 27, 2017, 4:49. INDICATIONS : Shortness of breath, possible pulmonary disease. MEDICAL HISTORY : Anemia SURGICAL HISTORY : Tubal ligation. ENCOUNTER: Subsequent ACUITY: 1 week PAIN SCORE: Non-responsive. LOCATION: Bilateral chest FINDINGS: ET tube tip well above the ricky. Gastric tube tip and side-port project within the stomach. Right central line tip in the distal superior vena cava. Persistent consolidation and hazy opacity in the mid and lower lungs bilaterally, stable in severity. CONCLUSION: Persistent left lower lobe consolidation and hazy opacities in the right mid/lower lung. Floyd Magallanes MD on June 28, 2017 at 6:08 Board Certified Radiologist. This report was verified electronically.
[2017-06-28] MEDS: FOSPHENYTOIN SODIUM 100 MG PE/2 ML VIAL IV SCH ×3 (06:52→22:01)
[2017-06-28] MEDS: ARTIFICIAL TEARS OPTH SOLN 15 ML BTL EACH EYE SCH ×3 (06:52→22:01)
[2017-06-28] MEDS: AMIODARONE INJ 450 MG in SODIUM CHLOR 0.9% (EXCEL) INJ 241 ML IV PRN ×2 (06:52→22:02)
[2017-06-28] MEDS: POTASSIUM CHLOR 20 MEQ PREMIX 100 ML IV PRN ×2 (07:16→09:04)
[2017-06-28] MEDS: levETIRAcetam INJ 500 MG in SODIUM CHLORIDE 0.9% INJ 100 ML IV SCH ×2 (08:39→20:15)
[2017-06-28] MEDS: DOCUSATE SODIUM 50 MG/SENNA 8.6 MG TAB PO SCH ×2 (08:39→20:16)
[2017-06-28] MEDS: HEPARIN SODIUM - SQ 10,000 UNITS/ML VIAL SQ SCH ×2 (08:39→20:15)
[2017-06-28] MEDS: CHLORHEXIDINE 0.12% (ORAL KIT) 15 ML CUP MT SCH ×2 (08:40→20:48)
[2017-06-28] MEDS: SODIUM CHLORIDE 0.9% FLUSH 10 ML FLUSH IV FLUSH SCH ×2 (08:40→20:16)
--- NOTE | 2017-06-28 09:44 | HHI.CCPN ---
Subjective Remarks/Hospital Course 57-year-old female. Date of admission 06/23/2017. Date of consultation 2017. Past medical history includes Patient originally presented to [facility] ED in atrial fibrillation with rapid ventricular response. Patient was initially started on a diltiazem drip and then was switched over to metoprolol tartrate 50 mg every 8 hours. After conversion, patient became bradycardic. CT abdomen/pelvis revealed a 1 mm gallstone without signs of cholecystitis. Otherwise unremarkable. The patient became more somnolent on the floor and bradycardic with heart rates as low as 42. EKG revealed sinus bradycardia with a first-degree AV block. Patient was arousable and with good pain in 1-2 word responses but fell asleep immediately. On examination patient did have pain especially in her right upper quadrant. CBC revealed hemoglobin 8.4. Ammonia level 35. BNP of 341. Remainder of laboratories are currently pending. Chest x-ray revealed right lower lobe infiltrate versus effusion. Patient did receive 60 mg total of furosemide within the past 24 hours. 3: Afebrile. Status post percutaneous cholecystostomy tube yesterday with aggressive crystalloid resuscitation. Currently resting in bed in no acute distress. Not on vasopressors. 32: Afebrile. A. fib with RVR overnight started on amiodarone drip. Digoxin 0.25 mg and diltiazem 10 mg given prior to initiation of amiodarone. Remains sedated on the ventilator. Possible seizure activity on EEG. Neurology is been counseled.. EPS cardiology and cardiothoracic surgery also been consulted for tachybradycardia syndrome and severe MR. Dr. Sterling/neurosurgeon is clear to trickle feeds today Subjective 3/3: Afebrile. EEG revealed continuous sharp spikes involving right frontal central region. Remains on levetiracetam at 500 mg every 12 hours. Noted possible switch to fosphenytoin per EEG report. Currently on propofol drip at 30 mcg/kg/min. Withdraws bilateral lower exams. Does not withdraw upper extremities currently. MRI brain currently pending. Tolerating trickle feeds at 10 cc an hour. 34: Repeat EEG pending today. Fosphenytoin added to medication regimen yesterday.No change in neurological assessment. Trickle feeds increased to 20 cc/hour with minimal residuals. Objective Vital Signs Date Time Temp Pulse Resp B/P (MAP) Pulse Ox O2 Delivery O2 Flow Rate FiO2 06/28/17 08:00 98.0 116 14 149/94 (112) 98 06/28/17 08:00 40 06/24/17 07:42 Nasal Cannula 2.00 Intake and Output 06/28/17 06/28/17 06/29/17 08:00 16:00 00:00 Intake Total 275 ml Output Total 865.0 ml Balance -590.0 ml Result Diagram: 06/28/17 0450 06/28/17 0450 Imaging Last Impressions Chest X-Ray 06/28/17 0600 Signed Impressions: Service Date/Time: Wednesday, June 28, 2017 04:18 - CONCLUSION: Persistent left lower lobe consolidation and hazy opacities in the right mid/lower lung. Floyd Magallanes MD Brain MRI 06/27/17 0000 Signed Impressions: Service Date/Time: Tuesday, June 27, 2017 10:00 - CONCLUSION: 1. No acute intracranial abnormality. 2. Mild chronic small vessel ischemic change. Floyd Tiwari Jr., MD Head CT 06/24/17 1645 Signed Impressions: Service Date/Time: Saturday, June 24, 2017 18:00 - CONCLUSION: No acute disease. Brian Burnett MD Percutaneous Cholangiogram 06/24/17 0000 Signed Impressions: Service Date/Time: Saturday, June 24, 2017 20:36 - CONCLUSION: Uncomplicated percutaneous cholecystostomy as above. Lalo Wong MD Abdomen/Pelvis CT 06/24/17 0000 Signed Impressions: Service Date/Time: Saturday, June 24, 2017 18:05 - CONCLUSION: 1. Bibasilar patchy infiltrates (right worse than left) consistent with probable pneumonia. Clinical correlation is recommended. 2. Worsening pleural effusions which are moderate in size on the right and small on the left. 3. Diffuse peripheral perfusion defects involving the kidneys suggestive of decreased renal function or possible interval development of bilateral pyelonephritis. Clinical correlation is recommended. 4. Gallbladder wall thickening and vicarious excretion of contrast via the gallbladder. Clinical correlation is recommended to rule out cholecystitis. 5. Interval development of ascites within the abdomen. 6. Thickening of the wall of the ascending colon raising possibility of colitis. Clinical correlation is recommended. Brian Burnett MD Last Impressions Chest X-Ray 06/26/17 0600 Signed Impressions: Service Date/Time: Monday, June 26, 2017 05:19 - CONCLUSION: Persistent consolidation in the lower lungs. Location of the gastric tube cannot be determined on this exam. Technical limitations. Floyd Magallanes MD Head CT 06/24/17 1645 Signed Impressions: Service Date/Time: Saturday, June 24, 2017 18:00 - CONCLUSION: No acute disease. Brian Burnett MD Percutaneous Cholangiogram 06/24/17 0000 Signed Impressions: Service Date/Time: Saturday, June 24, 2017 20:36 - CONCLUSION: Uncomplicated percutaneous cholecystostomy as above. Lalo Wong MD Abdomen/Pelvis CT 06/24/17 0000 Signed Impressions: Service Date/Time: Saturday, June 24, 2017 18:05 - CONCLUSION: 1. Bibasilar patchy infiltrates (right worse than left) consistent with probable pneumonia. Clinical correlation is recommended. 2. Worsening pleural effusions which are moderate in size on the right and small on the left. 3. Diffuse peripheral perfusion defects involving the kidneys suggestive of decreased renal function or possible interval development of bilateral pyelonephritis. Clinical correlation is recommended. 4. Gallbladder wall thickening and vicarious excretion of contrast via the gallbladder. Clinical correlation is recommended to rule out cholecystitis. 5. Interval development of ascites within the abdomen. 6. Thickening of the wall of the ascending colon raising possibility of colitis. Clinical correlation is recommended. Brian Burnett MD Objective Remarks GENERAL: 57-year-old female currently orotracheally intubated SKIN: Warm and dry. No rash. Well perfused HEAD: Atraumatic. Normocephalic. EYES: Pupils equal and round about 2 mm bilaterally and brisk. No scleral icterus. No injection or drainage. ENT: No nasal bleeding or discharge. Mucous membranes pink and moist. NECK: Trachea midline. No JVD. CARDIOVASCULAR: RRR. S1, S2. No S4. Without murmur RESPIRATORY: Miss breath sounds in the bases bilaterally. No wheezing GASTROINTESTINAL: Abdomen soft, tender to palpation in the right upper quadrant and epigastric region. Cholecystostomy tube in place -40 cc brown output hypoactive bowel sounds are present MUSCULOSKELETAL: Extremities with trace lower extremity peripheral edema. No obvious deformities. 1+ edema right upper extremity NEUROLOGICAL: Possible corneal reflex. Positive gag and cough. Withdraws to pain bilateral lower extremities. Date of Insertion: Jun 24, 2017 Line: Central Venous Catheter Side: Right Location: Subclavian A/P Assessment and Plan Neuro/Psych: Acute encephalopathy likely toxic metabolic UDS positive for barbiturates Depression/anxiety Seizure questionable Currently on propofol drip at 30 mcg/kg/min for sedation while intubated with fentanyl drip if needed Goal of RASS -2 Daily sedation vacation Acetaminophen 650 mg by tube. every 6 hours as needed fever/pain CT brain 06/24 revealed no acute intracranial findings EEG 06/25 revealed right frontal lobe sharp activity indicative of epileptiform. Loaded with levetiracetam 1 g IV 1 on 06/26 followed by 500 mg IV twice daily. Repeat EEG 06/26 revealed continuous sharps in right frontal region Repeat EEG pending 06/28 Neurology consult for the recommendations. 06/27 MRI brain-no acute intracranial abnormality Holding paroxetine unknown dosage daily home medication CV: Atrial fibrillation with RVR currently in sinus tachycardia History of atrial fibrillation currently in A. fib with RVR Hypertension Elevated BNP Lactic acidosis resolved Severe MR Severe TR Acute diastolic heart failure Tachybradycardia syndrome EKG reveals sinus bradycardia with first-degree AV block. Admission was A. fib with RVR. Currently on amiodarone drip at 0.5 mg/min. Cardiac markers troponin 0.05 2D echocardiogram revealed EF 45-50%. Decreased LV systolic function. Bilateral atrial enlargement. Severe MR and TR. Cardiology consult by [facility] with Dr. Jeffers EPS consult secondary to tachybradycardia syndrome CT surgery consulted to evaluate severe MR Lactate is cleared 06/26 CVP is 14 Diuresed 40 mg furosemide 1 on 06/27. effective 3800 cc Resp: Acute respiratory insufficiency Right lower lobe infiltrate/pleural effusion PRVC 18/500/1.05/01/39 Ventilator bundle Albuterol/ipratropium aerosols every 6 hours with albuterol aerosols every 2 hours as needed for dyspnea Spontaneous breathing trials when clinically indicated 06/28 Chest x-ray revealed left lower lobe consolidation and hazy opacities right mid/lower lung GI: Epigastric/right upper quadrant pain Gastroesophageal reflux disease Hyperammonia Cholelithiasis on ultrasound 06/23 possibly acute cholecystitis Hypoalbuminemia CT abdomen/pelvis 06/23 revealed a 1 mm gallstone. No signs of cholecystitis. Otherwise unremarkable CT abdomen/pelvis 06/24 revealed right greater than left pleural effusions. Gallbladder wall thickening with voracious dye excretion, descending colon edema and bilateral perinephric stranding Status post cholecystostomy tube by IR 06/24 General surgery recommended continue cholecystostomy tube placement. Outpatient follow-up for cholecystectomy. Okay to initiate trickle feeds today. Currently on Nepro at 10 cc an hour. Continued at 20 cc today. Nutrition recommends Jevity 1.5 goal 50 cc an hour Repeat CT abdomen/pelvis with contrast if worsening symptomatology Previously patient has been on omeprazole 40 mg p.o. daily. Currently on pantoprazole 40 mg IV. daily for gastroesophageal reflux disease Docusate sodium/senna 1 tablet twice daily for bowel regimen Lactulose 30 cc daily for elevated ammonia. 3 Repeat ammonia level - 27 : Ferguson catheter has been placed for accurate I's and O's and critical patient Endo: Acute hypoglycemia likely secondary to sepsis resolved Sliding-scale insulin Novulin R with Accu-Cheks every 4 hours to maintain euglycemia/low regimen TSH -1.76 Renal: Acute kidney injury- resolved Did receive IV contrast on admission. Negative urine eosinophils and urine electrolytes likely prerenal indices by Janet No signs of hydronephrosis on CT abdomen/pelvis 06/23. Stranding noted around bilateral kidneys 06/24. Medical renal disease versus pyelonephritis Creatinine 0.98 Heme: Microcytic hypochromic anemia Leukocytosis Resolved DIC Thrombocytopenia We will need iron studies and Hemoccult test done during this hospitalization Self-reported negative EGD/colonoscopy in the past per prior record Transfuse 1 unit PRBCs overnight. Will give 1 FFP and 1 cryo and 10 mg of vitamin K today. Recheck coags in a.m. INR currently 1.3. PTT and fibrinogen corrected Recheck CBC in a.m. 3/ ID: Severe sepsis likely gallbladder source plus/minus UA Started on ampicillin/tazobactam with vancomycin day #4 Pertinent cultures 06/25 -bile -no growth 06/25 -sputum -no growth 06/24 -blood cultures 4 -no growth 06/24 -urine -p no growth Urine Legionella pneumococcal antigens no growth Influenza negative MSK: PT evaluate and treat FEN: Hypernatremia 1 L of quarter normal saline today 1. Replace electrolytes as clinically indicated per ICU electrolyte protocol Access -Right subclavian CVL day #4 placed 06/24. Continue -Right radial arterial line day #4 placed 06/24. Discontinued 06/27 Prophylaxis -GI -pantoprazole -DVT -SCDs/heparin subcu Critical Care: The total critical care time was 30 minutes. Time to perform other separately billable procedures was not included in the critical care time. 06/27 Discussed with Yaneth Garcia. Discussed in detail neurological condition including seizure activity on EEG, imaging being performed, medication adjustments and neurology consultation. Discussed cholecystostomy tube in follow-up with general surgery most likely as an outpatient with current medical condition improves. Care plan discussed and all questions answered. Physician Madeleine Crews MD Jun 28, 2017 09:44
--- NOTE | 2017-06-28 11:36 | HHI.PR ---
Subjective Remarks eeg c/w sz like activity on prorofol/versed keppra and now cerebyx repeat eeg today Objective Vital Signs Date Time Temp Pulse Resp B/P (MAP) Pulse Ox O2 Delivery O2 Flow Rate FiO2 06/28/17 09:39 97 40 06/28/17 08:00 98.0 116 14 149/94 (112) 98 06/28/17 08:00 40 06/28/17 07:00 103 06/28/17 06:52 118 152/91 06/28/17 04:00 40 06/28/17 03:47 94 40 06/28/17 03:00 97.9 104 15 132/84 (100) 95 06/28/17 03:00 104 06/28/17 00:15 95 40 06/28/17 00:00 40 06/27/17 23:00 98.6 98 22 128/80 (96) 95 06/27/17 20:21 96 40 06/27/17 20:00 40 06/27/17 19:00 98.4 93 15 143/85 (104) 98 06/27/17 16:20 99 40 06/27/17 16:00 40 06/27/17 15:22 98.0 92 14 147/83 (104) 98 06/27/17 15:00 98 06/27/17 13:15 96 40 06/27/17 13:10 88 150/71 06/27/17 12:00 98.0 118 14 157/110 (126) 98 06/27/17 12:00 40 06/27/17 12:00 113 I/O 06/27/17 06/27/17 06/27/17 06/28/17 06/28/17 06/28/17 07:00 15:00 23:00 07:00 15:00 23:00 Intake Total 1197 ml 630 ml 1390 ml 325 ml Output Total 770 ml 5.0 ml 3200 ml 860 ml 5.0 ml Balance 427 ml 625.0 ml -1810 ml -535 ml -5.0 ml Intake Oral 0 ml 0 ml IV Total 1077 ml 630 ml 1250 ml 50 ml Tube Feeding 120 ml 140 ml 275 ml Output Urine Total 630 ml 3100 ml 700 ml Tube Feeding Residual Discard 5.0 ml 5.0 ml Drainage Total 140 ml 100 ml 160 ml # Bowel Movements 0 0 0 Result Diagram: 06/28/1744906/28/17449 Imaging mri neg for stroke Objective Remarks intubated sedated exam pp pupil no w/d pain Assessment and Plan Assessment and Plan abnl eeg -sz -keppra 500 mg bid cerebyx 100 mg q8h level 9.0 today recheck in am -eeg today if still abnl consider adding PB. Stephanie Shannon MD Jun 28, 2017 11:36
--- NOTE | 2017-06-28 12:37 | PD.CARD.PN ---
Subjective Subjective Remarks intubated, sedated Objective Medications Current Medications Medications (Trade) Dose Ordered Sig/Salud Route Start Time Stop Time Status Last Admin (Narcan Inj) 0.4 mg UNSCH PRN IV PUSH 06/23/17 20:30 Potassium Chloride 100 ml @ 25 mls/hr Q2H PRN IV 06/24/17 17:00 06/25/17 02:34 Potassium Chloride 100 ml @ 50 mls/hr Q2H PRN IV 06/24/17 17:00 (K-Lyte Cl Eff) 50 meq UNSCH PRN PO 06/24/17 17:00 Potassium Chloride 100 ml @ 25 mls/hr UNSCH PRN IV 06/24/17 17:00 Potassium Chloride 100 ml @ 50 mls/hr Q2H PRN IV 06/24/17 17:00 06/28/17 09:04 Magnesium Sulfate 4 gm/Sodium Chloride 100 ml @ 50 mls/hr UNSCH PRN IV 06/24/17 17:00 (Mag-Ox) 800 mg UNSCH PRN PO 06/24/17 17:00 Magnesium Sulfate 2 gm/Sodium Chloride 100 ml @ 50 mls/hr UNSCH PRN IV 06/24/17 17:00 06/25/17 07:53 (K-Phos) 2,000 mg Q4H PRN PO 06/24/17 17:00 Sodium Phosphate 30 mmol/Sodium Chloride 250 ml @ 42 mls/hr UNSCH PRN IV 06/24/17 17:00 (K-Phos) 2,000 mg UNSCH PRN PO/TUBE 06/24/17 17:00 Potassium Phosphate 30 mmol/ Sodium Chloride 260 ml @ 42 mls/hr UNSCH PRN IV 06/24/17 17:00 (D50w (Vial) Inj) 50 ml UNSCH PRN IV PUSH 06/24/17 17:00 (Glucagon Inj) 1 mg UNSCH PRN OTHER 06/24/17 17:00 (NS Flush) 2 ml UNSCH PRN IV FLUSH 06/24/17 17:00 (NS Flush) 2 ml BID IV FLUSH 06/24/17 21:00 06/28/17 08:40 (Zofran Inj) 4 mg Q6H PRN IV PUSH 06/24/17 17:00 (Duoneb Neb) 1 ampule Q6HR NEB INH 06/24/17 22:00 06/28/17 09:39 (Albuterol Neb) 2.5 mg Q2HR NEB PRN INH 06/24/17 17:00 Miscellaneous Information 1 Q361D XX 06/24/17 18:00 (Chlorhexidine 2% Cloth) 3 pack Taper DAILY@04 TOP 06/25/17 04:00 06/21/18 03:59 06/28/17 04:00 (Chlorhexidine 2% Cloth) 3 pack UNSCH PRN TOP 06/24/17 17:00 (Keiry-Colace) 1 tab BID PO 06/24/17 21:00 06/28/17 08:39 (Milk Of Magnesia Liq) 30 ml Q12H PRN PO 06/24/17 17:00 (Senokot) 17.2 mg Q12H PRN PO 06/24/17 17:00 (Dulcolax Supp) 10 mg DAILY PRN RECTAL 06/24/17 17:00 (Lactulose Liq) 30 ml DAILY PRN PO 06/24/17 17:00 Piperacillin Sod/ Tazobactam Sod 50 ml @ 100 mls/hr Q6H IV 06/24/17 20:00 06/28/17 08:40 Pharmacy Profile Note 0 ml @ 0 mls/hr UNSCH OTHER 06/24/17 18:00 (Peridex 0.12% Liq) 15 ml BID@08,20 MT 06/24/17 20:00 06/28/17 08:40 Propofol 100 ml @ 2.13 mls/hr TITRATE PRN IV 06/24/17 19:30 06/27/17 23:08 Fentanyl Citrate 250 ml @ 5 mls/hr TITRATE PRN IV 06/24/17 19:30 Norepinephrine Bitartrate 250 ml @ 7.5 mls/hr TITRATE PRN IV 06/24/17 19:30 (Brethine Inj) 1 mg UNSCH PRN SQ 06/24/17 19:30 (Tears Naturale Opth Soln) 1 drop Q8HR EACH EYE 06/24/17 22:00 06/28/17 06:52 (NovoLIN R SUPPLEMENTAL SCALE) 1 Q4HR SQ 06/24/17 20:00 (Protonix Inj) 40 mg Q24H IV PUSH 06/24/17 20:00 06/27/17 21:04 (Heparin Inj) 5,000 units Q12HR SQ 06/25/17 07:00 06/28/17 08:39 (Tylenol 650 Mg/ 20 ml Liq) 650 mg Q6H PRN NG 06/25/17 08:45 Vancomycin HCl 1500 mg/Sodium Chloride 515 ml @ 250 mls/hr Q24H IV 06/25/17 12:00 06/27/17 12:26 Amiodarone HCl 450 mg/Sodium Chloride 250 ml @ 33.33 mls/ hr Q7H31M PRN IV 06/26/17 04:15 06/28/17 06:52 Levetriacetam 500 mg/Sodium Chloride 105 ml @ 420 mls/hr Q12HR IV 06/26/17 21:00 06/28/17 08:39 Miscellaneous Information SPECIFIC LAB TO BE DRAWN:VA... ONCE ONCE .XX 06/29/17 11:45 06/29/17 11:46 (Cerebyx Inj) 100 mgpe Q8HR IV 06/27/17 22:00 06/28/17 06:52 Midazolam HCl 100 ml @ 2 mls/hr TITRATE PRN IV 06/27/17 18:45 Vital Signs / I&O Vital Signs Date Time Temp Pulse Resp B/P (MAP) Pulse Ox O2 Delivery O2 Flow Rate FiO2 06/28/17 12:00 40 06/28/17 11:29 98.0 116 14 145/100 (115) 98 06/28/17 11:00 108 06/28/17 09:39 97 40 06/28/17 08:00 98.0 116 14 149/94 (112) 98 06/28/17 08:00 40 06/28/17 07:00 103 06/28/17 06:52 118 152/91 06/28/17 04:00 40 06/28/17 03:47 94 40 06/28/17 03:00 97.9 104 15 132/84 (100) 95 06/28/17 03:00 104 06/28/17 00:15 95 40 06/28/17 00:00 40 06/27/17 23:00 98.6 98 22 128/80 (96) 95 06/27/17 20:21 96 40 06/27/17 20:00 40 06/27/17 19:00 98.4 93 15 143/85 (104) 98 06/27/17 16:20 99 40 06/27/17 16:00 40 06/27/17 15:22 98.0 92 14 147/83 (104) 98 06/27/17 15:00 98 06/27/17 13:15 96 40 06/27/17 13:10 88 150/71 I/O 06/27/17 06/27/17 06/27/17 06/28/17 06/28/17 06/28/17 07:00 15:00 23:00 07:00 15:00 23:00 Intake Total 1197 ml 630 ml 1390 ml 325 ml Output Total 770 ml 5.0 ml 3200 ml 860 ml 5.0 ml Balance 427 ml 625.0 ml -1810 ml -535 ml -5.0 ml Intake Oral 0 ml 0 ml IV Total 1077 ml 630 ml 1250 ml 50 ml Tube Feeding 120 ml 140 ml 275 ml Output Urine Total 630 ml 3100 ml 700 ml Tube Feeding Residual Discard 5.0 ml 5.0 ml Drainage Total 140 ml 100 ml 160 ml # Bowel Movements 0 0 0 Physical Exam GENERAL: SKIN: Warm and dry. HEAD: Normocephalic. EYES: No scleral icterus. No injection or drainage. NECK: Supple, trachea midline. No JVD or lymphadenopathy. CARDIOVASCULAR: Regular rate and rhythm without murmurs, gallops, or rubs. RESPIRATORY: Breath sounds equal bilaterally. No accessory muscle use. GASTROINTESTINAL: Abdomen soft, non-tender, nondistended. MUSCULOSKELETAL: No cyanosis, or edema. BACK: Nontender without obvious deformity. No CVA tenderness. Laboratory Laboratory Tests Test 06/28/17 04:50 White Blood Count 8.1 TH/MM3 Red Blood Count 3.50 MIL/MM3 Hemoglobin 7.7 GM/DL Hematocrit 25.3 % Mean Corpuscular Volume 72.1 FL Mean Corpuscular Hemoglobin 22.1 PG Mean Corpuscular Hemoglobin Concent 30.6 % Red Cell Distribution Width 22.0 % Platelet Count 134 TH/MM3 Mean Platelet Volume 8.3 FL Neutrophils (%) (Auto) 82.0 % Lymphocytes (%) (Auto) 10.0 % Monocytes (%) (Auto) 6.5 % Eosinophils (%) (Auto) 1.3 % Basophils (%) (Auto) 0.2 % Neutrophils # (Auto) 6.6 TH/MM3 Lymphocytes # (Auto) 0.8 TH/MM3 Monocytes # (Auto) 0.5 TH/MM3 Eosinophils # (Auto) 0.1 TH/MM3 Basophils # (Auto) 0.0 TH/MM3 CBC Comment DIFF FINAL Differential Comment Blood Urea Nitrogen 31 MG/DL Creatinine 0.98 MG/DL Random Glucose 121 MG/DL Total Protein 5.8 GM/DL Albumin 2.7 GM/DL Calcium Level 8.3 MG/DL Phosphorus Level 3.3 MG/DL Magnesium Level 2.0 MG/DL Alkaline Phosphatase 76 U/L Aspartate Amino Transf (AST/SGOT) 62 U/L Alanine Aminotransferase (ALT/SGPT) 51 U/L Total Bilirubin 0.7 MG/DL Sodium Level 144 MEQ/L Potassium Level 3.3 MEQ/L Chloride Level 108 MEQ/L Carbon Dioxide Level 28.5 MEQ/L Anion Gap 8 MEQ/L Estimat Glomerular Filtration Rate 58 ML/MIN Ammonia 27 MCMOL/L Phenytoin (Dilantin) Level 9.0 MCG/ML Imaging Last 24 hours Impressions Chest X-Ray 06/28/17 0600 Signed Impressions: Service Date/Time: Wednesday, June 28, 2017 04:18 - CONCLUSION: Persistent left lower lobe consolidation and hazy opacities in the right mid/lower lung. Floyd Magallanes MD Assessment and Plan Problem List: (1) Sepsis ICD Codes: A41.9 - Sepsis, unspecified organism (2) Cardiomyopathy ICD Codes: I42.9 - Cardiomyopathy, unspecified (3) Mitral regurgitation ICD Codes: I34.0 - Nonrheumatic mitral (valve) insufficiency (4) Bradycardia ICD Codes: R00.1 - Bradycardia, unspecified (5) Atrial fibrillation with RVR ICD Codes: I48.91 - Unspecified atrial fibrillation Status: Acute (6) Anemia ICD Codes: D64.9 - Anemia, unspecified Status: Acute (7) Pulmonary edema ICD Codes: J81.1 - Chronic pulmonary edema (8) Cholecystitis ICD Codes: K81.9 - Cholecystitis, unspecified Assessment and Plan 1.) Cardiomyopathy - beta jude and clayton held due to septic shock 2.) Afib - consult Dr Arellano, due to tachy-joe syndrome, av gosia bloackade held due to bradycardia, ac held due to severe anemia of indeterminate origin, on iv amio 3.) Severe mr - consult ct surgery to determine if patient is a surgical candidate for potential mvr and cath if she is when hemodynamically stable, patient consents and rx plan for cholecystitis defined Problem Qualifiers (1) Anemia: Qualified Codes: D64.9 - Anemia, unspecified Gianni Jeffers MD Jun 28, 2017 12:37
[2017-06-28] MEDS: VANCOMYCIN INJ 1,500 MG in SODIUM CHLORID 0.9% 500 ML INJ 500 ML IV SCH (12:51)
--- NOTE | 2017-06-28 13:04 | MG ---
cc: Stephanie Shannon MD EEG#: [id number] REFERRING PHYSICIAN: Guillermo Pratt MD ROOM: 449 On Diprivan 30 mcg, sedated. Only photic done. The EEG showed spike waves. This is a followup EEG. On Cerebyx, Keppra, antibiotics, propofol. The patient has overall diffuse slowing with some slow wave activity seen bilaterally, but somewhat improved from yesterday's EEG. Towards epoch 80, there were a couple sharps seen. Photic stimulation, no significant driving response. IMPRESSION: Moderate slowly, but still some slow wave activity concerning for epileptic focus in this patient. Clinical correlation. Currently on Dilantin and Keppra. Dilantin level should be increased from 9 to at least 15 and increase Keppra to 750 b.i.d. Repeat EEG should be done tomorrow. Stephanie Shannon MD DF/TI , 12:44 PM , 01:02 PM
[2017-06-28] MEDS: PROPOFOL 1000 MG/100 ML INJ 100 ML IV PRN (18:48)
[2017-06-28] MEDS: PANTOPRAZOLE SODIUM 40 MG VIAL IV PUSH SCH (20:15)
[2017-06-29] VITALS (16 sets, daily range): BP systolic 118–141; BP diastolic 67–77; PULSE 82–108; RESP 12–17; TEMP 98.3–99.2; O2SAT 95–100
[2017-06-29] MEDS: PROPOFOL 1000 MG/100 ML INJ 100 ML IV PRN ×4 (00:36→20:32)
[2017-06-29] MEDS: PIPERACIL-TAZO 3.375 GM PREMIX 50 ML IV SCH ×4 (03:03→20:29)
[2017-06-29] MEDS: CHLORHEXIDINE GLUCONATE 2 % 1 PACK (2 CLOTHS) TOP SCH (04:00)
[2017-06-29] MEDS: INSULIN NovoLIN REGULAR SUPPLEMENTAL SCALE SQ SCH ×6 (04:00→20:00)
[2017-06-29 05:10] LABS: AUTOMATED NEUTROPHIL # 5.6 TH/MM3 (1.8-7.7); BASOPHIL # 0.1 TH/MM3 (0-0.2); EOSINOPHIL # 0.3 TH/MM3 (0-0.4); EOSINOPHIL % 3.8 % (0.0-4.0); HEMATOCRIT 25.9 % (35.0-46.0); LYMPH % 11.4 % (9.0-44.0); LYMPHOCYTE # 0.8 TH/MM3 (1.0-4.8); MEAN CELL VOLUME 72.2 FL (80.0-100.0); MEAN CORPUSCULAR HEMOGLOBIN 22.3 PG (27.0-34.0); MEAN CORPUSCULAR HGB CONC 30.9 % (32.0-36.0); MEAN PLATELET VOLUME 8.3 FL (7.0-11.0); MONO % 8.2 % (0.0-8.0); MONOCYTE # 0.6 TH/MM3 (0-0.9); NEUT % 75.6 % (16.0-70.0); PLATELET COUNT 130 TH/MM3 (150-450); RED BLOOD COUNT 3.59 MIL/MM3 (4.00-5.30); RED CELL DISTRIBUTION WIDTH 22.2 % (11.6-17.2); WHITE BLOOD COUNT 7.4 TH/MM3 (4.0-11.0)
--- NOTE | 2017-06-29 05:17 | RADRPT ---
EXAM DATE/TIME: 06/29/2017 04:28 [facility] COMPARISON: CHEST SINGLE AP, June 27, 2017, 4:49. CHEST SINGLE AP, June 28, 2017, 4:18. INDICATIONS : Shortness of breath, possible pulmonary. MEDICAL HISTORY : Anemia SURGICAL HISTORY : Tubal ligation. ENCOUNTER: Subsequent ACUITY: 1 week PAIN SCORE: Non-responsive. LOCATION: Bilateral chest FINDINGS: Portable AP view of the chest demonstrates a normal-sized cardiac silhouette. ETT, and NG tube, and r ight subclavian central line remain present. Multiple EKG lines overlie the patient. Lungs are underi nflated and there are moderate-sized bibasilar pleural-parenchymal opacities. No pneumothorax is seen . CONCLUSION: Stable chest x-ray with bibasilar opacities representing pleural effusions with associated volume los s and airspace consolidation. The overall pattern could be secondary to pulmonary edema. Stanislaw Galvez MD on June 29, 2017 at 5:14 Board Certified Radiologist. This report was verified electronically.
[2017-06-29 05:47] LABS: BICARBONATE 26.7 MEQ/L (21.0-32.0); CALCIUM 8.4 MG/DL (8.5-10.1); CREATININE 0.74 MG/DL (0.50-1.00); MAGNESIUM 1.9 MG/DL (1.5-2.5)
[2017-06-29] MEDS: FOSPHENYTOIN SODIUM 100 MG PE/2 ML VIAL IV SCH ×3 (06:00→21:43)
[2017-06-29] MEDS: ARTIFICIAL TEARS OPTH SOLN 15 ML BTL EACH EYE SCH ×3 (06:00→21:43)
[2017-06-29] MEDS: CHLORHEXIDINE 0.12% (ORAL KIT) 15 ML CUP MT SCH ×2 (08:12→20:29)
[2017-06-29] MEDS: DOCUSATE SODIUM 50 MG/SENNA 8.6 MG TAB PO SCH ×2 (08:12→20:30)
[2017-06-29] MEDS: SODIUM CHLORIDE 0.9% FLUSH 10 ML FLUSH IV FLUSH SCH ×2 (08:13→20:30)
[2017-06-29] MEDS: levETIRAcetam INJ 500 MG in SODIUM CHLORIDE 0.9% INJ 100 ML IV SCH ×2 (08:13→20:30)
[2017-06-29] MEDS: HEPARIN SODIUM - SQ 10,000 UNITS/ML VIAL SQ SCH (08:14)
--- NOTE | 2017-06-29 08:29 | MB ---
cc: Jairo Paul MD DATE OF CONSULT: 06/26/2017 HISTORY OF PRESENT ILLNESS: A 57-year-old female that initially presented to the emergency room with mid epigastric pain, short of breath for a couple of days, was in the process of moving to [place], has been out of her medications for the past week, has a history of atrial fibrillation, stopped her Xarelto 3 weeks ago, questionable rash, was found to be in atrial fibrillation with RVR, CHF. They did an echo, which showed mitral valve regurgitation, tricuspid regurgitation, EF 45%. They started her initially on Cardizem drip and then switched over to metoprolol. The patient converted and became somewhat bradycardic. They also did a CT abdomen and pelvis, which revealed a 1 mm gallstone with signs of cholecystitis. She has since undergone cholecystostomy tube on the . While she was on the medical floor, she became more somnolent and bradycardic with heart rates in the 40s, first-degree AV block. She was arousable, 1-2 word responses, but fell asleep immediately. Still had pain mid upper quadrant. Ammonia level was 35, BNP was 341, lactic acid was 11. During the course of the evening, she was still in atrial fibrillation, was given digoxin. She apparently had been intubated at some point. There was possible seizure activity on EEG. Neurology has been consulted, cardiology, and then we were also consulted because of the severe mitral regurgitation. PAST MEDICAL HISTORY: Mitral regurgitation, chronic atrial fibrillation, anemia, anxiety, gastroesophageal reflux disease. SURGERIES: Include tubal ligation. Other surgeries include upper GI and colonoscopy. ALLERGIES: INCLUDE SULFA, CIPRO, HYDROMORPHONE. MEDICATIONS ON ADMISSION: Paroxetine, omeprazole. CURRENT MEDICATIONS: Include amiodarone drip, she had a dose of digoxin, a dose of vitamin K, propofol. FAMILY HISTORY: History of CVA. SOCIAL HISTORY: Positive for tobacco use, no alcohol, no illicit drugs. REVIEW OF SYSTEMS: Unobtainable, patient intubated and sedated. PHYSICAL EXAMINATION: GENERAL: Patient sedated on propofol. HEENT: Pupils are approximately 3-4 mm, equal, sluggish, orally intubated. NECK: Supple. No JVD. HEART: Sounds S1, S2, irregular rate and rhythm, grade II/ systolic murmur. LUNGS: Coarse bilateral breath sounds. ABDOMEN: Obese, soft, nontender. GENITOURINARY: She has a Ferguson cath in place. EXTREMITIES: No cyanosis, trace edema. EKG showed sinus bradycardia at a rate of 44, T-wave inversions I and II. Initial EKG on admission showed atrial fibrillation with RVR of 142 heart rate. LABORATORY DATA: Shows hemoglobin 7.8, hematocrit of 25, white cell count of 11, platelet count of 164. Sodium 143, potassium 3.8, BUN of 48 with a creatinine of 1.82, it was 0.81 on admission. AST and ALT are now slowly decreasing. Patient has been also seen by concern for epileptic activity in this patient per the EEG. Initially, the lactic acid was 11, it is down now to 1.5. IMPRESSION: 1. This is a 57-year-old female very complicated respiratory failure requiring intubation. 2. Chronic history of atrial fibrillation on anticoagulation, which she stopped approximately 3 weeks ago. 3. Lactic acidosis, which has resolved. 4. Admission with epigastric and right upper quadrant positive for cholecystitis, status post cholecystostomy tube. 5. Acute kidney injury, status post IV fluids. 6. Microcytic hyperchromic anemia with thrombocytopenia, status post FFP1, cryo, vitamin K, and 1 pack of RBCs has been given. 7. Severe sepsis secondary to probable gallbladder source. She is currently on antibiotics. Critical care following. At this time, patient is not a candidate for any type of surgical intervention. She needs to recover from her cholecystitis and also from her sepsis and respiratory failure. We will follow peripherally until patient improves to evaluate timing for mitral valve repair, possible replacement. MD GALLO Escamilla/chely , 02:33 PM , 06:52 PM
--- NOTE | 2017-06-29 10:32 | PD.CAR.PN ---
CVT Progress Note Subjective/Hospital Course: A 57-year-old female that initially presented to the emergency room with mid epigastric pain, short of breath for a couple of days, was in the process of moving to [place], has been out of her medications for the past week, has a history of atrial fibrillation, stopped her Xarelto 3 weeks ago, questionable rash, was found to be in atrial fibrillation with RVR, CHF. They did an echo, which showed mitral valve regurgitation, tricuspid regurgitation, EF 45%. They started her initially on Cardizem drip and then switched over to metoprolol. The patient converted and became somewhat bradycardic. They also did a CT abdomen and pelvis, which revealed a 1 mm gallstone with signs of cholecystitis. She has since undergone cholecystostomy tube on the . While she was on the medical floor, she became more somnolent and bradycardic with heart rates in the 40s, first-degree AV block. She was arousable, 1-2 word responses, but fell asleep immediately. Still had pain mid upper quadrant. Ammonia level was 35, BNP was 341, lactic acid was 11. During the course of the evening, she was still in atrial fibrillation, was given digoxin. She apparently had been intubated at some point. There was possible seizure activity on EEG. We consulted because of the severe mitral regurgitation. PAST MEDICAL HISTORY: Mitral regurgitation, chronic atrial fibrillation, anemia, anxiety, gastroesophageal reflux disease. 3/5 still having some epileptic focus on EEG per Neuro, on Keppra , Cerebyx, versed and propofol pupils [place] , , sedated on vent remains in afib rate controlled Objective: GENERAL: pt sedated on vent , RASS -2 SKIN: Warm and dry. HEAD: Normocephalic. EYES: slight scleral icterus. No injection or drainage. some edema NECK: Supple, trachea midline. No JVD or lymphadenopathy. CARDIOVASCULAR: irregular rate and rhythm without murmurs, gallops, or rubs. RESPIRATORY: orally intubated, few coarse breath sounds Breath sounds equal bilaterally. No accessory muscle use. GASTROINTESTINAL: Abdomen soft, non-tender, nondistended. tolerating tube feeds MUSCULOSKELETAL: No cyanosis, or mild general edema. BACK: Nontender without obvious deformity. No CVA tenderness. Vital Signs Date Time Temp Pulse Resp B/P (MAP) Pulse Ox O2 Delivery O2 Flow Rate FiO2 3/5/18 07:38 98 40 06/29/17 04:42 95 40 06/29/17 04:00 40 06/29/17 03:00 108 06/29/17 03:00 98.9 108 12 140/70 (93) 95 06/29/17 00:00 40 06/28/17 23:00 114 06/28/17 23:00 98.3 118 16 159/95 (116) 94 06/28/17 22:02 109 163/95 06/28/17 20:00 40 06/28/17 19:57 95 40 06/28/17 19:00 98.6 105 14 150/95 (113) 94 06/28/17 19:00 105 06/28/17 16:37 94 40 06/28/17 16:00 40 06/28/17 15:26 98.4 115 14 142/99 (113) 98 06/28/17 15:00 102 06/28/17 12:00 40 06/28/17 11:29 98.0 116 14 145/100 (115) 98 06/28/17 11:00 108 Labs: Laboratory Tests Test 06/29/17 04:58 White Blood Count 7.4 TH/MM3 (4.0-11.0) Red Blood Count 3.59 MIL/MM3 (4.00-5.30) Hemoglobin 8.0 GM/DL (11.6-15.3) Hematocrit 25.9 % (35.0-46.0) Mean Corpuscular Volume 72.2 FL (80.0-100.0) Mean Corpuscular Hemoglobin 22.3 PG (27.0-34.0) Mean Corpuscular Hemoglobin Concent 30.9 % (32.0-36.0) Red Cell Distribution Width 22.2 % (11.6-17.2) Platelet Count 130 TH/MM3 (150-450) Mean Platelet Volume 8.3 FL (7.0-11.0) Neutrophils (%) (Auto) 75.6 % (16.0-70.0) Lymphocytes (%) (Auto) 11.4 % (9.0-44.0) Monocytes (%) (Auto) 8.2 % (0.0-8.0) Eosinophils (%) (Auto) 3.8 % (0.0-4.0) Basophils (%) (Auto) 1.0 % (0.0-2.0) Neutrophils # (Auto) 5.6 TH/MM3 (1.8-7.7) Lymphocytes # (Auto) 0.8 TH/MM3 (1.0-4.8) Monocytes # (Auto) 0.6 TH/MM3 (0-0.9) Eosinophils # (Auto) 0.3 TH/MM3 (0-0.4) Basophils # (Auto) 0.1 TH/MM3 (0-0.2) CBC Comment DIFF FINAL Differential Comment Blood Urea Nitrogen 18 MG/DL (7-18) Creatinine 0.74 MG/DL (0.50-1.00) Random Glucose 92 MG/DL (74-106) Calcium Level 8.4 MG/DL (8.5-10.1) Phosphorus Level 3.0 MG/DL (2.5-4.9) Magnesium Level 1.9 MG/DL (1.5-2.5) Sodium Level 144 MEQ/L (136-145) Potassium Level 3.7 MEQ/L (3.5-5.1) Chloride Level 110 MEQ/L (98-107) Carbon Dioxide Level 26.7 MEQ/L (21.0-32.0) Anion Gap 7 MEQ/L (5-15) Estimat Glomerular Filtration Rate 80 ML/MIN (>89) Result Diagram: 06/29/178 06/29/17 0458 (1) Sepsis Plan: cultures neg to date (2) Cardiomyopathy (3) Mitral regurgitation Plan: will monitor peripherally please notify us when pt extubated off all sedation (4) Bradycardia (5) Atrial fibrillation with RVR (6) Anemia (7) Pulmonary edema (8) Cholecystitis Problem Qualifiers (1) Anemia: Qualified Codes: D64.9 - Anemia, unspecified Charis Hines Jun 29, 2017 10:32
[2017-06-29] MEDS ORDERED: PHARMACY ORDERED LAB ONE (11:45)
[2017-06-29] MEDS: VANCOMYCIN INJ 1,500 MG in SODIUM CHLORID 0.9% 500 ML INJ 500 ML IV SCH (12:06)
[2017-06-29] MEDS: AMIODARONE INJ 450 MG in SODIUM CHLOR 0.9% (EXCEL) INJ 241 ML IV PRN (12:32)
--- NOTE | 2017-06-29 15:09 | HHI.CCPN ---
Subjective Remarks/Hospital Course 57-year-old female. Date of admission 06/23/2017. Date of consultation 2017. Past medical history includes Patient originally presented to [facility] ED in atrial fibrillation with rapid ventricular response. Patient was initially started on a diltiazem drip and then was switched over to metoprolol tartrate 50 mg every 8 hours. After conversion, patient became bradycardic. CT abdomen/pelvis revealed a 1 mm gallstone without signs of cholecystitis. Otherwise unremarkable. The patient became more somnolent on the floor and bradycardic with heart rates as low as 42. EKG revealed sinus bradycardia with a first-degree AV block. Patient was arousable and with good pain in 1-2 word responses but fell asleep immediately. On examination patient did have pain especially in her right upper quadrant. CBC revealed hemoglobin 8.4. Ammonia level 35. BNP of 341. Remainder of laboratories are currently pending. Chest x-ray revealed right lower lobe infiltrate versus effusion. Patient did receive 60 mg total of furosemide within the past 24 hours. 3: Afebrile. Status post percutaneous cholecystostomy tube yesterday with aggressive crystalloid resuscitation. Currently resting in bed in no acute distress. Not on vasopressors. 32: Afebrile. A. fib with RVR overnight started on amiodarone drip. Digoxin 0.25 mg and diltiazem 10 mg given prior to initiation of amiodarone. Remains sedated on the ventilator. Possible seizure activity on EEG. Neurology is been counseled.. EPS cardiology and cardiothoracic surgery also been consulted for tachybradycardia syndrome and severe MR. Dr. Sterling/neurosurgeon is clear to trickle feeds today Subjective 3/3: Afebrile. EEG revealed continuous sharp spikes involving right frontal central region. Remains on levetiracetam at 500 mg every 12 hours. Noted possible switch to fosphenytoin per EEG report. Currently on propofol drip at 30 mcg/kg/min. Withdraws bilateral lower exams. Does not withdraw upper extremities currently. MRI brain currently pending. Tolerating trickle feeds at 10 cc an hour. 3: Repeat EEG pending today. Fosphenytoin added to medication regimen yesterday.No change in neurological assessment. Trickle feeds increased to 20 cc/hour with minimal residuals. 06/29: EEG repeated only showed slow waves possibly medication contributory. Patient previously on anticoagulation prior to admission and her to A. fib RVR, but due to concern for indeterminate source of anemia, GI consulted for recommendations and evaluation of risks/ benefits to initiate anticoagulation therapy. Patient continued to have pleural effusions Lasix IV dose 40 mg given. Objective Vital Signs Date Time Temp Pulse Resp B/P (MAP) Pulse Ox O2 Delivery O2 Flow Rate FiO2 06/29/17 13:50 100 40 06/29/17 12:32 101 151/82 06/29/17 11:00 98.3 14 Intake and Output 06/29/17 06/29/17 06/30/17 08:00 16:00 00:00 Intake Total 357 ml 545 ml Output Total 830 ml 500 ml Balance -473 ml 45 ml Result Diagram: 06/29/17 0458 06/29/17 0458 Imaging Last Impressions Chest X-Ray 06/29/17 0600 Signed Impressions: Service Date/Time: Thursday, June 29, 2017 04:28 - CONCLUSION: Stable chest x-ray with bibasilar opacities representing pleural effusions with associated volume loss and airspace consolidation. The overall pattern could be secondary to pulmonary edema. Stanislaw Galvez MD Brain MRI 06/27/17 0000 Signed Impressions: Service Date/Time: Tuesday, June 27, 2017 10:00 - CONCLUSION: 1. No acute intracranial abnormality. 2. Mild chronic small vessel ischemic change. Floyd Tiwari Jr., MD Head CT 06/24/17 1645 Signed Impressions: Service Date/Time: Saturday, June 24, 2017 18:00 - CONCLUSION: No acute disease. Brian Burnett MD Percutaneous Cholangiogram 06/24/17 0000 Signed Impressions: Service Date/Time: Saturday, June 24, 2017 20:36 - CONCLUSION: Uncomplicated percutaneous cholecystostomy as above. Lalo Wong MD Abdomen/Pelvis CT 06/24/17 0000 Signed Impressions: Service Date/Time: Saturday, June 24, 2017 18:05 - CONCLUSION: 1. Bibasilar patchy infiltrates (right worse than left) consistent with probable pneumonia. Clinical correlation is recommended. 2. Worsening pleural effusions which are moderate in size on the right and small on the left. 3. Diffuse peripheral perfusion defects involving the kidneys suggestive of decreased renal function or possible interval development of bilateral pyelonephritis. Clinical correlation is recommended. 4. Gallbladder wall thickening and vicarious excretion of contrast via the gallbladder. Clinical correlation is recommended to rule out cholecystitis. 5. Interval development of ascites within the abdomen. 6. Thickening of the wall of the ascending colon raising possibility of colitis. Clinical correlation is recommended. Brian Burnett MD Last Impressions Chest X-Ray 06/28/17 0600 Signed Impressions: Service Date/Time: Wednesday, June 28, 2017 04:18 - CONCLUSION: Persistent left lower lobe consolidation and hazy opacities in the right mid/lower lung. Floyd Magallanes MD Brain MRI 06/27/17 0000 Signed Impressions: Service Date/Time: Tuesday, June 27, 2017 10:00 - CONCLUSION: 1. No acute intracranial abnormality. 2. Mild chronic small vessel ischemic change. Floyd Tiwari Jr., MD Head CT 06/24/17 1645 Signed Impressions: Service Date/Time: Saturday, June 24, 2017 18:00 - CONCLUSION: No acute disease. Brian Burnett MD Percutaneous Cholangiogram 06/24/17 0000 Signed Impressions: Service Date/Time: Saturday, June 24, 2017 20:36 - CONCLUSION: Uncomplicated percutaneous cholecystostomy as above. Laol Wong MD Abdomen/Pelvis CT 06/24/17 0000 Signed Impressions: Service Date/Time: Saturday, June 24, 2017 18:05 - CONCLUSION: 1. Bibasilar patchy infiltrates (right worse than left) consistent with probable pneumonia. Clinical correlation is recommended. 2. Worsening pleural effusions which are moderate in size on the right and small on the left. 3. Diffuse peripheral perfusion defects involving the kidneys suggestive of decreased renal function or possible interval development of bilateral pyelonephritis. Clinical correlation is recommended. 4. Gallbladder wall thickening and vicarious excretion of contrast via the gallbladder. Clinical correlation is recommended to rule out cholecystitis. 5. Interval development of ascites within the abdomen. 6. Thickening of the wall of the ascending colon raising possibility of colitis. Clinical correlation is recommended. Brian Burnett MD Last Impressions Chest X-Ray 06/26/17 0600 Signed Impressions: Service Date/Time: Monday, June 26, 2017 05:19 - CONCLUSION: Persistent consolidation in the lower lungs. Location of the gastric tube cannot be determined on this exam. Technical limitations. Floyd Magallanes MD Head CT 06/24/17 1645 Signed Impressions: Service Date/Time: Saturday, June 24, 2017 18:00 - CONCLUSION: No acute disease. Brian Burnett MD Percutaneous Cholangiogram 06/24/17 0000 Signed Impressions: Service Date/Time: Saturday, June 24, 2017 20:36 - CONCLUSION: Uncomplicated percutaneous cholecystostomy as above. Lalo Wong MD Abdomen/Pelvis CT 06/24/17 0000 Signed Impressions: Service Date/Time: Saturday, June 24, 2017 18:05 - CONCLUSION: 1. Bibasilar patchy infiltrates (right worse than left) consistent with probable pneumonia. Clinical correlation is recommended. 2. Worsening pleural effusions which are moderate in size on the right and small on the left. 3. Diffuse peripheral perfusion defects involving the kidneys suggestive of decreased renal function or possible interval development of bilateral pyelonephritis. Clinical correlation is recommended. 4. Gallbladder wall thickening and vicarious excretion of contrast via the gallbladder. Clinical correlation is recommended to rule out cholecystitis. 5. Interval development of ascites within the abdomen. 6. Thickening of the wall of the ascending colon raising possibility of colitis. Clinical correlation is recommended. Brian Burnett MD Objective Remarks GENERAL: 57-year-old female currently orotracheally intubated currently on propofol 30 mcgs/kg/min. and Tenon infusion discontinued SKIN: Warm and dry. No rash. Well perfused HEAD: Atraumatic. Normocephalic. EYES: Pupils equal and round about 2 mm bilaterally and brisk. No scleral icterus. No injection or drainage. ENT: No nasal bleeding or discharge. Mucous membranes pink and moist. NECK: Trachea midline. No JVD. CARDIOVASCULAR: Irregular rhythm, rate currently 70s to 80s. S1, S2. No S4. Without murmur RESPIRATORY: Miss breath sounds in the bases bilaterally. No wheezing GASTROINTESTINAL: Abdomen soft, tender to palpation in the right upper quadrant and epigastric region. Cholecystostomy tube in place -40 cc brown output hypoactive bowel sounds are present MUSCULOSKELETAL: Extremities with trace lower extremity peripheral edema. No obvious deformities. 1+ edema right upper extremity NEUROLOGICAL: Possible corneal reflex. Positive gag and cough. Withdraws to pain bilateral lower extremities. Date of Insertion: Jun 24, 2017 Line: Central Venous Catheter Side: Right Location: Subclavian A/P Assessment and Plan Neuro/Psych: Acute encephalopathy likely toxic metabolic UDS positive for barbiturates Depression/anxiety Seizure questionable Currently on propofol drip at 30 mcg/kg/min for sedation while intubated with fentanyl drip if needed Goal of RASS -2 Daily sedation vacation Acetaminophen 650 mg by tube. every 6 hours as needed fever/pain CT brain 06/24 revealed no acute intracranial findings EEG 06/25 revealed right frontal lobe sharp activity indicative of epileptiform. Loaded with levetiracetam 1 g IV 1 on 06/26 followed by 500 mg IV twice daily. Repeat EEG 06/26 revealed continuous sharps in right frontal region Repeat EEG pending 06/28- slow waves Neurology consult for the recommendations. 06/27 MRI brain-no acute intracranial abnormality Holding paroxetine unknown dosage daily home medication CV: Atrial fibrillation with RVR currently in sinus tachycardia History of atrial fibrillation currently in A. fib with RVR Hypertension Elevated BNP Lactic acidosis resolved Severe MR Severe TR Acute diastolic heart failure Tachybradycardia syndrome EKG reveals sinus bradycardia with first-degree AV block. Admission was A. fib with RVR. Currently on amiodarone drip at 0.5 mg/min. Cardiac markers troponin 0.05 2D echocardiogram revealed EF 45-50%. Decreased LV systolic function. Bilateral atrial enlargement. Severe MR and TR. Cardiology consult by [facility] with Dr. Jeffers EPS consult secondary to tachybradycardia syndrome CT surgery consulted to evaluate severe MR- Dr. Paul following Lactate is cleared 06/26 CVP monitoring trend Diuresed 40 mg furosemide 1 on 06/27. effective 3800 cc, Lasix 40 mg IV x 1 dose now Resp: Acute respiratory insufficiency Right lower lobe infiltrate/pleural effusion PRVC 18/500/1.05/01/39 Ventilator bundle Albuterol/ipratropium aerosols every 6 hours with albuterol aerosols every 2 hours as needed for dyspnea Spontaneous breathing trials when clinically indicated 06/28 Chest x-ray - air space disease and pleural effusions GI: Epigastric/right upper quadrant pain Gastroesophageal reflux disease Hyperammonia Cholelithiasis on ultrasound 06/23 possibly acute cholecystitis Hypoalbuminemia CT abdomen/pelvis 06/23 revealed a 1 mm gallstone. No signs of cholecystitis. Otherwise unremarkable CT abdomen/pelvis 06/24 revealed right greater than left pleural effusions. Gallbladder wall thickening with voracious dye excretion, descending colon edema and bilateral perinephric stranding Status post cholecystostomy tube by IR 06/24 General surgery recommended continue cholecystostomy tube placement. Outpatient follow-up for cholecystectomy. Okay to initiate trickle feeds today. Currently on Nepro at 10 cc an hour. Continued at 20 cc today. Nutrition recommends Jevity 1.5 goal 50 cc an hour Repeat CT abdomen/pelvis with contrast if worsening symptomatology Previously patient has been on omeprazole 40 mg p.o. daily. Currently on pantoprazole 40 mg IV. daily for gastroesophageal reflux disease Docusate sodium/senna 1 tablet twice daily for bowel regimen Lactulose 30 cc daily for elevated ammonia. GI consulted, Dr. Naqvi regarding anemia, for decisions regarding risks benefits of restarting anticoagulation at this time in the setting of her chronic A. fib : Ferguson catheter has been placed for accurate I's and O's and critical patient Endo: Acute hypoglycemia likely secondary to sepsis resolved Sliding-scale insulin Novulin R with Accu-Cheks every 4 hours to maintain euglycemia/low regimen TSH -1.76 Renal: Acute kidney injury- resolved Negative urine eosinophils and urine electrolytes likely prerenal indices by Janet No signs of hydronephrosis on CT abdomen/pelvis 06/23. Stranding noted around bilateral kidneys 06/24. Medical renal disease versus pyelonephritis Creatinine improved Heme: Microcytic hypochromic anemia Leukocytosis Resolved DIC Thrombocytopenia We will need iron studies and Hemoccult test done during this hospitalization Self-reported negative EGD/colonoscopy in the past per prior record Transfuse 1 unit PRBCs overnight. Will give 1 FFP and 1 cryo and 10 mg of vitamin K today. Recheck coags in a.m. INR currently 1.3. PTT and fibrinogen corrected Monitor CBC ID: Severe sepsis likely gallbladder source plus/minus UA Started on ampicillin/tazobactam with vancomycin day #4 Pertinent cultures / -bile -no growth 06/25 -sputum -no growth 06/24 -blood cultures 4 -no growth 06/24 -urine -p no growth Urine Legionella pneumococcal antigens no growth Influenza negative MSK: PT evaluate and treat FEN: Hypernatremia 1 L of quarter normal saline today 1. Replace electrolytes as clinically indicated per ICU electrolyte protocol Access -Right subclavian CVL day #4 placed 06/24. Continue -Right radial arterial line day #4 placed 06/24. Discontinued 06/27 Prophylaxis -GI -pantoprazole -DVT -SCDs/heparin SQ currently, Will await GI recommendations to initiate therapeutic anticoagulation Critical Care: The total critical care time was 38 minutes. Time to perform other separately billable procedures was not included in the critical care time. 06/27 Discussed with Yaneth Garcia. Discussed in detail neurological condition including seizure activity on EEG, imaging being performed, medication adjustments and neurology consultation. Discussed cholecystostomy tube in follow-up with general surgery most likely as an outpatient with current medical condition improves. 06/29 D/W Dr. Jeffers and Dr. Naqvi- patient has indeterminate source of anemia , but a need for anticoagulation secondary to atrial fib. Will await GI recommendations Physician Madeleine Crews MD Jun 29, 2017 15:09
--- NOTE | 2017-06-29 15:37 | PD.CONS ---
HPI History of Present Illness This is a 57 year old female with hx AF, anemia who presented to hospital for epigastric pain and SOB. She was found to be in AF with RVR, is s/p percutaneous cholecystostomy tube, and is now intubated on vent. GI has been consulted for undetermined anemia and need for anticoagulant. Pt's daughter Yaneth Garcia says she has been anemic of late and "nobody has figured out where she is bleeding." Pt has had multiple trips to ER in [facility] for blood transfusions. She had an EGD 6 months ago that did not indicate source of bleeding. Her last colonoscopy was 8 years ago. Pt has not seen a engineer soils. Pt was on a blood thinner for AF but was not taking one when she presented, per daughter. Hx obtained from EMR and pt's daughter. (Lilly Fry) PFSH Past Medical History atrial fibrillation, anxiety, GERD anemia Past Surgical History Tubal ligation (Lilly Fry) Coded Allergies: Sulfa (Sulfonamide Antibiotics) (Verified Allergy, Unknown, 06/23/17) ciprofloxacin (Verified Allergy, Unknown, 06/23/17) hydromorphone (Verified Allergy, Unknown, 06/23/17) Family History Both parents with a history of CVA. Social History Current tobacco abuser 1 pack per day. Denies alcohol or illicit drugs. (Lilly Fry) Review of Systems noncontributory (Lilly Fry) GI Exam Vitals I&O Vital Signs Date Time Temp Pulse Resp B/P (MAP) Pulse Ox O2 Delivery O2 Flow Rate FiO2 06/29/17 13:50 100 40 06/29/17 12:32 101 151/82 06/29/17 12:00 40 06/29/17 11:28 98 40 06/29/17 11:00 98.3 90 14 141/77 (98) 98 06/29/17 11:00 90 06/29/17 08:00 40 06/29/17 07:38 98 40 06/29/17 07:00 91 06/29/17 07:00 98.3 91 14 123/76 (92) 98 06/29/17 04:42 95 40 06/29/17 04:00 40 06/29/17 03:00 108 06/29/17 03:00 98.9 108 12 140/70 (93) 95 06/29/17 00:00 40 06/28/17 23:00 114 06/28/17 23:00 98.3 118 16 159/95 (116) 94 06/28/17 22:02 109 163/95 06/28/17 20:00 40 06/28/17 19:57 95 40 06/28/17 19:00 98.6 105 14 150/95 (113) 94 06/28/17 19:00 105 06/28/17 16:37 94 40 06/28/17 16:00 40 I/O 06/28/17 06/28/17 06/28/17 06/29/17 06/29/17 06/29/17 07:00 15:00 23:00 07:00 15:00 23:00 Intake Total 325 ml 3413 ml 357 ml 1060 ml Output Total 860 ml 5.0 ml 1055 ml 830 ml 500 ml Balance -535 ml -5.0 ml 2358 ml -473 ml 560 ml Intake Oral 0 ml 0 ml 0 ml IV Total 50 ml 3233 ml 1060 ml Tube Feeding 275 ml 180 ml 357 ml Output Urine Total 700 ml 875 ml 700 ml 350 ml Tube Feeding Residual Discard 5.0 ml Drainage Total 160 ml 180 ml 130 ml 150 ml # Bowel Movements 0 0 1 Imaging Last Impressions Chest X-Ray 06/29/17 0600 Signed Impressions: Service Date/Time: Thursday, June 29, 2017 04:28 - CONCLUSION: Stable chest x-ray with bibasilar opacities representing pleural effusions with associated volume loss and airspace consolidation. The overall pattern could be secondary to pulmonary edema. Stanislaw Galvez MD Brain MRI 06/27/17 0000 Signed Impressions: Service Date/Time: Tuesday, June 27, 2017 10:00 - CONCLUSION: 1. No acute intracranial abnormality. 2. Mild chronic small vessel ischemic change. Floyd Tiwari Jr., MD Head CT 06/24/17 1645 Signed Impressions: Service Date/Time: Saturday, June 24, 2017 18:00 - CONCLUSION: No acute disease. Brian Burnett MD Percutaneous Cholangiogram 06/24/17 0000 Signed Impressions: Service Date/Time: Saturday, June 24, 2017 20:36 - CONCLUSION: Uncomplicated percutaneous cholecystostomy as above. Lalo Wong MD Abdomen/Pelvis CT 06/24/17 0000 Signed Impressions: Service Date/Time: Saturday, June 24, 2017 18:05 - CONCLUSION: 1. Bibasilar patchy infiltrates (right worse than left) consistent with probable pneumonia. Clinical correlation is recommended. 2. Worsening pleural effusions which are moderate in size on the right and small on the left. 3. Diffuse peripheral perfusion defects involving the kidneys suggestive of decreased renal function or possible interval development of bilateral pyelonephritis. Clinical correlation is recommended. 4. Gallbladder wall thickening and vicarious excretion of contrast via the gallbladder. Clinical correlation is recommended to rule out cholecystitis. 5. Interval development of ascites within the abdomen. 6. Thickening of the wall of the ascending colon raising possibility of colitis. Clinical correlation is recommended. Brian Burnett MD Laboratory Test 06/29/17 04:58 06/29/17 11:55 White Blood Count 7.4 TH/MM3 Red Blood Count 3.59 MIL/MM3 Hemoglobin 8.0 GM/DL Hematocrit 25.9 % Mean Corpuscular Volume 72.2 FL Mean Corpuscular Hemoglobin 22.3 PG Mean Corpuscular Hemoglobin Concent 30.9 % Red Cell Distribution Width 22.2 % Platelet Count 130 TH/MM3 Mean Platelet Volume 8.3 FL Neutrophils (%) (Auto) 75.6 % Lymphocytes (%) (Auto) 11.4 % Monocytes (%) (Auto) 8.2 % Eosinophils (%) (Auto) 3.8 % Basophils (%) (Auto) 1.0 % Neutrophils # (Auto) 5.6 TH/MM3 Lymphocytes # (Auto) 0.8 TH/MM3 Monocytes # (Auto) 0.6 TH/MM3 Eosinophils # (Auto) 0.3 TH/MM3 Basophils # (Auto) 0.1 TH/MM3 CBC Comment DIFF FINAL Differential Comment Blood Urea Nitrogen 18 MG/DL Creatinine 0.74 MG/DL Random Glucose 92 MG/DL Calcium Level 8.4 MG/DL Phosphorus Level 3.0 MG/DL Magnesium Level 1.9 MG/DL Sodium Level 144 MEQ/L Potassium Level 3.7 MEQ/L Chloride Level 110 MEQ/L Carbon Dioxide Level 26.7 MEQ/L Anion Gap 7 MEQ/L Estimat Glomerular Filtration Rate 80 ML/MIN Vancomycin Level Trough 11.2 MCG/ML Date/Time Source Procedure Growth Status 06/24/17 20:19 Blood Peripheral Aerobic Blood Culture - Final NO GROWTH IN 5 DAYS Complete 06/24/17 20:19 Blood Peripheral Anaerobic Blood Culture - Final NO GROWTH IN 5 DAYS Complete 06/25/17 08:00 Fluid Bile Fluid Gram Stain - Final Complete 06/25/17 08:00 Fluid Bile Fluid Body Fluid Culture - Final NO GROWTH IN 72 HRS.--AEROBICALLY OR ... Complete 06/25/17 00:54 Sputum Expectorated Sputum Gram Stain - Final Complete 06/25/17 00:54 Sputum Expectorated Sputum Sputum Culture - Final HEAVY GROWTH NORMAL RESPIRATORY DELIO Complete 06/25/17 01:25 Urine Catheterized Urine Legionella Antigen - Final PRESUMPTIVE NEGATIVE FOR LEGIONELLA P... Complete 06/25/17 01:25 Urine Catheterized Urine Streptococcus pneumoniae Antigen (M - Final PRESUMPTIVE NEGATIVE FOR STREPTOCOCCU... Complete Physical Examination HEENT: atraumatic; no jaundice. intubated, OGT CHEST: CTA CARDIAC: irr HR ABDOMEN: Soft, nondistended, nontender; no hepatosplenomegaly; bowel sounds are present in all four quadrants. cholecystostomy RUQ, bilious drainage EXTREMITIES: No clubbing, cyanosis, + general edema SKIN: Normal; no rash; no jaundice. RETIREMENT CONSULTANT: sedated on vent (Lilly Fry) Assessment and Plan Plan ASSESSMENT - anemia - microcytic, hypochromic. Per daughter pt has been requiring mult trips to ER for blood transfusion. No obvious source of bleeding. EGD 6m ago in [place], no bleeding seen. Last colonoscopy 8 y ago - leukocytosis - wbc trending down ?cholecystitis vs colitis - elevated LFTs - ?cholecystitis, s/p cholecystostomy tube, CT 06/24/17 showed gb wall thickening, interval development ascites poss colitis GS following - encephalopathy, AF w RVR, tachy bradycardic syndrome, sepsis l ikely gb etiology per [facility] - EGD and colonoscopy in am - obtain consent - d/w daughter and she is agreeable - hold TF after MN - Mg citrate x2 this evening - monitor labs - notify GI of active bleeding - if above neg, consider hematology consult pt seen by myself and DR Naqvi and this note is on his behalf (Lisandra,Lilly S CHILDCARE PROVIDER) Physician Comments Seen and examined, plan for EGD and Colonoscopy in AM. Further recommendations to follow pending above findings. Thank you for the consult. (Marcy Naqvi MD) Lilly Fry Jun 29, 2017 15:37 Marcy Naqvi MD Jun 29, 2017 16:10
[2017-06-29] MEDS ORDERED: MAGNESIUM CITRATE SOLN 300 ML BTL PO ONE ×2 (16:00→18:00)
[2017-06-29] MEDS ORDERED: FUROSEMIDE 40 MG/4 ML VIAL IV PUSH ONE (16:00)
[2017-06-29] MEDS: AMIODARONE 200 MG TAB PO SCH ×2 (16:17→20:30)
[2017-06-29] MEDS: RESP: ALBUTEROL 2.5 MG/IPRATROPIUM 0.5 MG NEB (SCH) NEB ×2 (16:43→20:03)
--- NOTE | 2017-06-29 20:24 | PD.CARD.PN ---
Subjective Subjective Remarks intubated, sedated Objective Medications Current Medications Medications (Trade) Dose Ordered Sig/Salud Route Start Time Stop Time Status Last Admin (Narcan Inj) 0.4 mg UNSCH PRN IV PUSH 06/23/17 20:30 Potassium Chloride 100 ml @ 25 mls/hr Q2H PRN IV 06/24/17 17:00 06/25/17 02:34 Potassium Chloride 100 ml @ 50 mls/hr Q2H PRN IV 06/24/17 17:00 (K-Lyte Cl Eff) 50 meq UNSCH PRN PO 06/24/17 17:00 Potassium Chloride 100 ml @ 25 mls/hr UNSCH PRN IV 06/24/17 17:00 Potassium Chloride 100 ml @ 50 mls/hr Q2H PRN IV 06/24/17 17:00 06/28/17 09:04 Magnesium Sulfate 4 gm/Sodium Chloride 100 ml @ 50 mls/hr UNSCH PRN IV 06/24/17 17:00 (Mag-Ox) 800 mg UNSCH PRN PO 06/24/17 17:00 Magnesium Sulfate 2 gm/Sodium Chloride 100 ml @ 50 mls/hr UNSCH PRN IV 06/24/17 17:00 06/25/17 07:53 (K-Phos) 2,000 mg Q4H PRN PO 06/24/17 17:00 Sodium Phosphate 30 mmol/Sodium Chloride 250 ml @ 42 mls/hr UNSCH PRN IV 06/24/17 17:00 (K-Phos) 2,000 mg UNSCH PRN PO/TUBE 06/24/17 17:00 Potassium Phosphate 30 mmol/ Sodium Chloride 260 ml @ 42 mls/hr UNSCH PRN IV 06/24/17 17:00 (D50w (Vial) Inj) 50 ml UNSCH PRN IV PUSH 06/24/17 17:00 (Glucagon Inj) 1 mg UNSCH PRN OTHER 06/24/17 17:00 (NS Flush) 2 ml UNSCH PRN IV FLUSH 06/24/17 17:00 (NS Flush) 2 ml BID IV FLUSH 06/24/17 21:00 06/29/17 08:13 (Zofran Inj) 4 mg Q6H PRN IV PUSH 06/24/17 17:00 (Albuterol Neb) 2.5 mg Q2HR NEB PRN INH 06/24/17 17:00 Miscellaneous Information 1 Q361D XX 06/24/17 18:00 (Chlorhexidine 2% Cloth) 3 pack Taper DAILY@04 TOP 06/25/17 04:00 06/21/18 03:59 06/29/17 04:00 (Chlorhexidine 2% Cloth) 3 pack UNSCH PRN TOP 06/24/17 17:00 (Keiry-Colace) 1 tab BID PO 06/24/17 21:00 06/29/17 08:12 (Milk Of Magnesia Liq) 30 ml Q12H PRN PO 06/24/17 17:00 06/28/17 15:30 (Senokot) 17.2 mg Q12H PRN PO 06/24/17 17:00 (Dulcolax Supp) 10 mg DAILY PRN RECTAL 06/24/17 17:00 (Lactulose Liq) 30 ml DAILY PRN PO 06/24/17 17:00 Piperacillin Sod/ Tazobactam Sod 50 ml @ 100 mls/hr Q6H IV 06/24/17 20:00 06/29/17 14:37 Pharmacy Profile Note 0 ml @ 0 mls/hr UNSCH OTHER 06/24/17 18:00 (Peridex 0.12% Liq) 15 ml BID@08,20 MT 06/24/17 20:00 06/29/17 08:12 Propofol 100 ml @ 2.13 mls/hr TITRATE PRN IV 06/24/17 19:30 06/29/17 16:16 (Brethine Inj) 1 mg UNSCH PRN SQ 06/24/17 19:30 (Tears Naturale Opth Soln) 1 drop Q8HR EACH EYE 06/24/17 22:00 06/29/17 13:16 (NovoLIN R SUPPLEMENTAL SCALE) 1 Q4HR SQ 06/24/17 20:00 (Protonix Inj) 40 mg Q24H IV PUSH 06/24/17 20:00 06/28/17 20:15 (Heparin Inj) 5,000 units Q12HR SQ 06/25/17 07:00 Future Hold 06/29/17 08:14 (Tylenol 650 Mg/ 20 ml Liq) 650 mg Q6H PRN NG 06/25/17 08:45 Levetriacetam 500 mg/Sodium Chloride 105 ml @ 420 mls/hr Q12HR IV 06/26/17 21:00 06/29/17 08:13 (Cerebyx Inj) 100 mgpe Q8HR IV 06/27/17 22:00 06/29/17 14:37 (Cordarone) 200 mg Q12HR PO 06/29/17 16:00 06/29/17 16:17 (Duoneb Neb) 1 ampule Q6HR NEB NEB 06/29/17 16:00 06/29/17 20:03 Vancomycin HCl 1750 mg/Sodium Chloride 517.5 ml @ 250 mls/hr Q24H IV 06/30/17 09:00 (Lasix Inj) 40 mg DAILY IV PUSH 06/30/17 09:00 Vital Signs / I&O Vital Signs Date Time Temp Pulse Resp B/P (MAP) Pulse Ox O2 Delivery O2 Flow Rate FiO2 06/29/17 20:03 100 40 06/29/17 18:06 96 130/64 06/29/17 17:00 87 06/29/17 17:00 87 16 126/71 (89) 99 06/29/17 16:44 100 40 06/29/17 16:00 40 06/29/17 16:00 86 06/29/17 16:00 98.6 86 17 118/69 (85) 99 06/29/17 15:00 82 17 127/68 (87) 99 06/29/17 15:00 82 06/29/17 14:00 98.6 91 17 127/67 (87) 97 06/29/17 14:00 91 06/29/17 14:00 40 06/29/17 13:50 100 40 06/29/17 12:32 101 151/82 06/29/17 12:00 40 06/29/17 11:28 98 40 06/29/17 11:00 98.3 90 14 141/77 (98) 98 06/29/17 11:00 90 06/29/17 08:00 40 06/29/17 07:38 98 40 06/29/17 07:00 91 06/29/17 07:00 98.3 91 14 123/76 (92) 98 06/29/17 04:42 95 40 06/29/17 04:00 40 06/29/17 03:00 108 06/29/17 03:00 98.9 108 12 140/70 (93) 95 06/29/17 00:00 40 06/28/17 23:00 114 06/28/17 23:00 98.3 118 16 159/95 (116) 94 06/28/17 22:02 109 163/95 I/O 06/28/17 06/28/17 06/28/17 06/29/17 06/29/17 06/29/17 07:00 15:00 23:00 07:00 15:00 23:00 Intake Total 325 ml 3413 ml 357 ml 1060 ml 1454 ml Output Total 860 ml 5.0 ml 1055 ml 830 ml 500 ml 3250 ml Balance -535 ml -5.0 ml 2358 ml -473 ml 560 ml -1796 ml Intake Oral 0 ml 0 ml 0 ml IV Total 50 ml 3233 ml 1060 ml 263 ml Tube Feeding 275 ml 180 ml 357 ml 231 ml Other 960 ml Output Urine Total 700 ml 875 ml 700 ml 350 ml 3100 ml Tube Feeding Residual Discard 5.0 ml Drainage Total 160 ml 180 ml 130 ml 150 ml 150 ml # Bowel Movements 0 0 1 0 Physical Exam GENERAL: SKIN: Warm and dry. HEAD: Normocephalic. EYES: No scleral icterus. No injection or drainage. NECK: Supple, trachea midline. No JVD or lymphadenopathy. CARDIOVASCULAR: Regular rate and rhythm without murmurs, gallops, or rubs. RESPIRATORY: Breath sounds equal bilaterally. No accessory muscle use. GASTROINTESTINAL: Abdomen soft, non-tender, nondistended. MUSCULOSKELETAL: No cyanosis, or edema. BACK: Nontender without obvious deformity. No CVA tenderness. Laboratory Laboratory Tests Test 06/29/17 04:58 06/29/17 11:55 White Blood Count 7.4 TH/MM3 Red Blood Count 3.59 MIL/MM3 Hemoglobin 8.0 GM/DL Hematocrit 25.9 % Mean Corpuscular Volume 72.2 FL Mean Corpuscular Hemoglobin 22.3 PG Mean Corpuscular Hemoglobin Concent 30.9 % Red Cell Distribution Width 22.2 % Platelet Count 130 TH/MM3 Mean Platelet Volume 8.3 FL Neutrophils (%) (Auto) 75.6 % Lymphocytes (%) (Auto) 11.4 % Monocytes (%) (Auto) 8.2 % Eosinophils (%) (Auto) 3.8 % Basophils (%) (Auto) 1.0 % Neutrophils # (Auto) 5.6 TH/MM3 Lymphocytes # (Auto) 0.8 TH/MM3 Monocytes # (Auto) 0.6 TH/MM3 Eosinophils # (Auto) 0.3 TH/MM3 Basophils # (Auto) 0.1 TH/MM3 CBC Comment DIFF FINAL Differential Comment Blood Urea Nitrogen 18 MG/DL Creatinine 0.74 MG/DL Random Glucose 92 MG/DL Calcium Level 8.4 MG/DL Phosphorus Level 3.0 MG/DL Magnesium Level 1.9 MG/DL Sodium Level 144 MEQ/L Potassium Level 3.7 MEQ/L Chloride Level 110 MEQ/L Carbon Dioxide Level 26.7 MEQ/L Anion Gap 7 MEQ/L Estimat Glomerular Filtration Rate 80 ML/MIN Vancomycin Level Trough 11.2 MCG/ML Imaging Last 24 hours Impressions Chest X-Ray 06/29/17 0600 Signed Impressions: Service Date/Time: Thursday, June 29, 2017 04:28 - CONCLUSION: Stable chest x-ray with bibasilar opacities representing pleural effusions with associated volume loss and airspace consolidation. The overall pattern could be secondary to pulmonary edema. Stanislaw Galvez MD Assessment and Plan Problem List: (1) Sepsis ICD Codes: A41.9 - Sepsis, unspecified organism (2) Cardiomyopathy ICD Codes: I42.9 - Cardiomyopathy, unspecified (3) Mitral regurgitation ICD Codes: I34.0 - Nonrheumatic mitral (valve) insufficiency (4) Bradycardia ICD Codes: R00.1 - Bradycardia, unspecified (5) Atrial fibrillation with RVR ICD Codes: I48.91 - Unspecified atrial fibrillation Status: Acute (6) Anemia ICD Codes: D64.9 - Anemia, unspecified Status: Acute (7) Pulmonary edema ICD Codes: J81.1 - Chronic pulmonary edema (8) Cholecystitis ICD Codes: K81.9 - Cholecystitis, unspecified Assessment and Plan 1.) Cardiomyopathy - beta jude and clayton held due to septic shock 2.) Afib - consult Dr Arellano, due to tachy-joe syndrome, av gosia bloackade held due to bradycardia, ac held due to severe anemia of indeterminate origin requiring multiple blood transfusions, GI following, i d/w Dr Sevilla ac and suggested getting a hematology consult to further risk stratify, on iv amio 3.) Severe mr - consult ct surgery to determine if patient is a surgical candidate for potential mvr and cath if she is when hemodynamically stable, patient consents and rx plan for cholecystitis defined Problem Qualifiers (1) Anemia: Qualified Codes: D64.9 - Anemia, unspecified Gianni Jeffers MD Jun 29, 2017 20:24
[2017-06-29] MEDS: PANTOPRAZOLE SODIUM 40 MG VIAL IV PUSH SCH (20:29)
[2017-06-30] VITALS (33 sets, daily range): BP systolic 119–197; BP diastolic 59–117; PULSE 93–128; RESP 17–27; TEMP 98.6–99.6; O2SAT 96–100
[2017-06-30] MEDS: PROPOFOL 1000 MG/100 ML INJ 100 ML IV PRN ×4 (00:28→20:36)
[2017-06-30] MEDS: PIPERACIL-TAZO 3.375 GM PREMIX 50 ML IV SCH ×4 (01:16→20:06)
[2017-06-30] MEDS: RESP: ALBUTEROL 2.5 MG/IPRATROPIUM 0.5 MG NEB (SCH) NEB ×4 (03:19→20:10)
[2017-06-30] MEDS: INSULIN NovoLIN REGULAR SUPPLEMENTAL SCALE SQ SCH ×6 (04:00→20:00)
[2017-06-30] MEDS: CHLORHEXIDINE GLUCONATE 2 % 1 PACK (2 CLOTHS) TOP SCH (04:00)
[2017-06-30 04:44] LABS: HEMATOCRIT 24.6 % (35.0-46.0); HEMOGLOBIN 7.5 GM/DL (11.6-15.3); MEAN CELL VOLUME 71.9 FL (80.0-100.0); MEAN CORPUSCULAR HEMOGLOBIN 21.8 PG (27.0-34.0); MEAN CORPUSCULAR HGB CONC 30.4 % (32.0-36.0); MEAN PLATELET VOLUME 8.8 FL (7.0-11.0); PLATELET COUNT 118 TH/MM3 (150-450); RED BLOOD COUNT 3.42 MIL/MM3 (4.00-5.30); RED CELL DISTRIBUTION WIDTH 21.7 % (11.6-17.2); WHITE BLOOD COUNT 5.9 TH/MM3 (4.0-11.0)
[2017-06-30 04:52] LABS: CALCIUM 7.9 MG/DL (8.5-10.1); CREATININE 0.68 MG/DL (0.50-1.00); MAGNESIUM 1.8 MG/DL (1.5-2.5); PHOSPHORUS 2.9 MG/DL (2.5-4.9)
[2017-06-30] MEDS: FOSPHENYTOIN SODIUM 100 MG PE/2 ML VIAL IV SCH ×3 (05:18→22:26)
[2017-06-30] MEDS: POTASSIUM CHLOR 40 MEQ PREMIX 100 ML IV PRN (05:18)
[2017-06-30] MEDS: ARTIFICIAL TEARS OPTH SOLN 15 ML BTL EACH EYE SCH ×3 (05:19→22:26)
--- NOTE | 2017-06-30 06:24 | RADRPT ---
EXAM DATE/TIME: 06/30/2017 05:14 [place] COMPARISON: CHEST SINGLE AP, June 29, 2017, 4:28. INDICATIONS : Short of breath. MEDICAL HISTORY : Anemia. SURGICAL HISTORY : Tubal ligation. ENCOUNTER: Subsequent ACUITY: 1 week PAIN SCORE: 0/10 LOCATION: Bilateral chest FINDINGS: Portable AP view of the chest demonstrates a normal-sized cardiac silhouette. ETT, nasogastric tube, and right subclavian central line remain present. There are multiple EKG lines overlying the patient. There is a moderate to large right and moderate size left pleural-parenchymal opacity. Focal patchy airspace opacity is present in the left upper lobe. No pneumothorax is seen. Bones demonstrate no acu te finding. CONCLUSION: 1. Persistent moderate-sized bibasilar opacities representing pleural effusions with associated volum e loss and/or airspace consolidation. 2. There are new more focal patchy airspace opacities in the left upper lung zone. Stanislaw Galvez MD on June 30, 2017 at 6:21 Board Certified Radiologist. This report was verified electronically.
[2017-06-30] MEDS: levETIRAcetam INJ 500 MG in SODIUM CHLORIDE 0.9% INJ 100 ML IV SCH ×2 (07:40→20:07)
[2017-06-30] MEDS: FUROSEMIDE 40 MG/4 ML VIAL IV PUSH SCH (07:40)
[2017-06-30] MEDS: AMIODARONE 200 MG TAB PO SCH ×2 (07:41→20:07)
[2017-06-30] MEDS: SODIUM CHLORIDE 0.9% FLUSH 10 ML FLUSH IV FLUSH SCH ×2 (07:41→20:07)
[2017-06-30] MEDS: CHLORHEXIDINE 0.12% (ORAL KIT) 15 ML CUP MT SCH ×2 (07:41→20:08)
[2017-06-30] MEDS: DOCUSATE SODIUM 50 MG/SENNA 8.6 MG TAB PO SCH ×2 (07:42→20:07)
[2017-06-30] MEDS: VANCOMYCIN INJ 1,750 MG in SODIUM CHLORID 0.9% 500 ML INJ 500 ML IV SCH (08:53)
[2017-06-30] MEDS: METOPROLOL TARTRATE 5 MG/5 ML VIAL IV PUSH PRN ×3 (10:03→22:27)
[2017-06-30] MEDS: DEXT 5%-NACL 0.45% 1000 ML INJ 1,000 ML IV SCH (10:18)
--- NOTE | 2017-06-30 10:54 | GIPROC ---
[facility] [address] [facility]. [facility], [address] EGD PROCEDURE REPORT EXAM DATE: 06/30/2017 PATIENT NAME: Caridad Mercer MR #: [id number] BIRTHDATE: 1960 ATTENDING: Marcy Naqvi MD ORDER #: [id number] [employer] SALES: Michael Blair and Mihaela Win STATUS: inpatient INDICATIONS: The patient is a 57 yr old female here for an EGD due to anemia PROCEDURE PERFORMED: EGD w/ biopsy MEDICATIONS: None and Per Anesthesia. TOPICAL ANESTHETIC: none CONSENT: The patient understands the risks and benefits of the procedure and understands that these risks include, but are not limited to: sedation, allergic reaction, infection, perforation and/or bleeding. Alternative means of evaluation and treatment include, among others: physical exam, x-rays, and/or surgical intervention. The patient elects to proceed with this endoscopic procedure. medical equipment was checked for proper function. Hand hygiene and appropriate measures for infection prevention was taken. After the risks, benefits and alternatives of the procedure were thoroughly explained, Informed consent was verified, confirmed and timeout was successfully executed by the treatment team. The patient was anesthetized with topical anesthesia and the EC-[id number] (Pedi C) endoscope was introduced through the mouth and advanced to the second portion of the duodenum. Retroflexion was performed and was normal The gastroscope was then slowly withdrawn and removed. ESOPHAGUS: The esophagus was otherwise normal. STOMACH: Multiple small shallow erosions were found in the gastric antrum. Multiple biopsies was performed using cold forceps. Sample sent for histology. DUODENUM: A medium sized non-bleeding, round and deep ulcer was found in the 1st part of the duodenum. The duodenal mucosa appeared normal in the 2nd part of the duodenum. ADVERSE EVENTS: There were no complications. IMPRESSIONS: 1. The esophagus was otherwise normal 2. Multiple small erosions were found in the gastric antrum; multiple biopsies was performed 3. Medium sized ulcer was found in the 1st part of the duodenum 4. Normal duodenal mucosa in the 2nd part of the duodenum 5. Retroflexion was performed and was normal RECOMMENDATIONS: 1. Continue PPI 2. Await biopsy results. Biopsy results will not be ready for 7-10 days. If you don't hear from us in two weeks, call our office for biopsy results. 3. Wilver for anticoagulation with careful monitoring for GI bleeding. PATIENT CONDITION: stable DISPOSITION: Observation REPEAT EXAM: NONE Marcy Naqvi MD eSigned: Marcy Naqvi MD 06/30/2017 10:54 AM cc: PATIENT NAME: Caridad Mercer MR#: [id number]
--- NOTE | 2017-06-30 10:58 | GIPROC ---
[facility] [address] [facility]. [facility], [address] COLONOSCOPY PROCEDURE REPORT EXAM DATE: 06/30/2017 PATIENT NAME: Caridad Mercer MR #: [id number] BIRTHDATE: 1960 ENDOSCOPIST: Marcy Naqvi MD ORDER #: [id number] SENIOR COPYWRITER: Michael Blair and Mihaela Win STATUS: inpatient INDICATIONS: The patient is a 57 yr old female here for a colonoscopy due to anemia, non-specific PROCEDURE PERFORMED: Colonoscopy, diagnostic MEDICATIONS: None and Per Anesthesia. PREP QUALITY: marginal PREP TYPE:Magnesium Citrate PREP TYPE:Type: ESTIMATED BLOOD LOSS: None CONSENT: The patient understands the risks and benefits of the procedure and understands that these risks include, but are not limited to: sedation, allergic reaction, infection, perforation and/or bleeding. Alternative means of evaluation and treatment include, among others: physical exam, x-rays, and/or surgical intervention. The patient elects to proceed with this endoscopic procedure. medical equipment was checked for proper function. Hand hygiene and appropriate measures for infection prevention was taken. After the risks, benefits and alternatives of the procedure were thoroughly explained, Informed consent was verified, confirmed and timeout was successfully executed by the treatment team. A digital exam was performed The Pentax [id number] endoscope was introduced through the anus and advanced to the cecum, which was identified by both the appendix and ileocecal valve. The instrument was then slowly withdrawn as the colon was fully examined. COLON FINDINGS: The colon mucosa was otherwise normal. Retroflexed views revealed no abnormalities The scope was then completely withdrawn from the patient and the procedure terminated. PROCEDURE WITHDRAWAL TIME:8minutes ADVERSE EVENTS: There were no complications. IMPRESSIONS: 1. The colon mucosa was otherwise normal 2. Retroflexed views revealed no abnormalities RECOMMENDATIONS: Wilver for anticoagulation with careful monitoring for GI bleeding. RECALL: Return 1 year Colonoscopy Marcy Naqvi MD eSigned: Marcy Naqvi MD 06/30/2017 10:57 AM cc:
[2017-06-30] MEDS ORDERED: PROPOFOL 200 MG/20 ML AMP IV ONE (12:00)
--- NOTE | 2017-06-30 17:20 | PD.CARD.PN ---
Subjective Subjective Remarks intubated, sedated Objective Medications Current Medications Medications (Trade) Dose Ordered Sig/Salud Route Start Time Stop Time Status Last Admin (Narcan Inj) 0.4 mg UNSCH PRN IV PUSH 06/23/17 20:30 Potassium Chloride 100 ml @ 25 mls/hr Q2H PRN IV 06/24/17 17:00 06/25/17 02:34 Potassium Chloride 100 ml @ 50 mls/hr Q2H PRN IV 06/24/17 17:00 (K-Lyte Cl Eff) 50 meq UNSCH PRN PO 06/24/17 17:00 Potassium Chloride 100 ml @ 25 mls/hr UNSCH PRN IV 06/24/17 17:00 06/30/17 05:18 Potassium Chloride 100 ml @ 50 mls/hr Q2H PRN IV 06/24/17 17:00 06/28/17 09:04 Magnesium Sulfate 4 gm/Sodium Chloride 100 ml @ 50 mls/hr UNSCH PRN IV 06/24/17 17:00 (Mag-Ox) 800 mg UNSCH PRN PO 06/24/17 17:00 Magnesium Sulfate 2 gm/Sodium Chloride 100 ml @ 50 mls/hr UNSCH PRN IV 06/24/17 17:00 06/25/17 07:53 (K-Phos) 2,000 mg Q4H PRN PO 06/24/17 17:00 Sodium Phosphate 30 mmol/Sodium Chloride 250 ml @ 42 mls/hr UNSCH PRN IV 06/24/17 17:00 (K-Phos) 2,000 mg UNSCH PRN PO/TUBE 06/24/17 17:00 Potassium Phosphate 30 mmol/ Sodium Chloride 260 ml @ 42 mls/hr UNSCH PRN IV 06/24/17 17:00 (D50w (Vial) Inj) 50 ml UNSCH PRN IV PUSH 06/24/17 17:00 (Glucagon Inj) 1 mg UNSCH PRN OTHER 06/24/17 17:00 (NS Flush) 2 ml UNSCH PRN IV FLUSH 06/24/17 17:00 (NS Flush) 2 ml BID IV FLUSH 06/24/17 21:00 06/30/17 07:41 (Zofran Inj) 4 mg Q6H PRN IV PUSH 06/24/17 17:00 (Albuterol Neb) 2.5 mg Q2HR NEB PRN INH 06/24/17 17:00 Miscellaneous Information 1 Q361D XX 06/24/17 18:00 (Chlorhexidine 2% Cloth) Taper DAILY@04 TOP 06/25/17 04:00 06/21/18 03:59 06/29/17 04:00 (Chlorhexidine 2% Cloth) 3 pack UNSCH PRN TOP 06/24/17 17:00 (Keiry-Colace) 1 tab BID PO 06/24/17 21:00 06/29/17 20:30 (Milk Of Magnesia Liq) 30 ml Q12H PRN PO 06/24/17 17:00 06/28/17 15:30 (Senokot) 17.2 mg Q12H PRN PO 06/24/17 17:00 (Dulcolax Supp) 10 mg DAILY PRN RECTAL 06/24/17 17:00 (Lactulose Liq) 30 ml DAILY PRN PO 06/24/17 17:00 Piperacillin Sod/ Tazobactam Sod 50 ml @ 100 mls/hr Q6H IV 06/24/17 20:00 06/30/17 13:30 Pharmacy Profile Note 0 ml @ 0 mls/hr UNSCH OTHER 06/24/17 18:00 (Peridex 0.12% Liq) 15 ml BID@08,20 MT 06/24/17 20:00 06/30/17 07:41 Propofol 100 ml @ 2.13 mls/hr TITRATE PRN IV 06/24/17 19:30 06/30/17 11:07 (Brethine Inj) 1 mg UNSCH PRN SQ 06/24/17 19:30 (Tears Naturale Opth Soln) 1 drop Q8HR EACH EYE 06/24/17 22:00 06/30/17 13:25 (NovoLIN R SUPPLEMENTAL SCALE) 1 Q4HR SQ 06/24/17 20:00 (Protonix Inj) 40 mg Q24H IV PUSH 06/24/17 20:00 06/29/17 20:29 (Heparin Inj) 5,000 units Q12HR SQ 06/25/17 07:00 Future Hold 06/29/17 08:14 (Tylenol 650 Mg/ 20 ml Liq) 650 mg Q6H PRN NG 3/1/18 08:45 Levetriacetam 500 mg/Sodium Chloride 105 ml @ 420 mls/hr Q12HR IV 06/26/17 21:00 06/30/17 07:40 (Cerebyx Inj) 100 mgpe Q8HR IV 06/27/17 22:00 06/30/17 14:00 (Cordarone) 200 mg Q12HR PO 06/29/17 16:00 06/30/17 07:41 (Duoneb Neb) 1 ampule Q6HR NEB NEB 06/29/17 16:00 06/30/17 15:35 Vancomycin HCl 1750 mg/Sodium Chloride 517.5 ml @ 250 mls/hr Q24H IV 06/30/17 09:00 06/30/17 08:53 (Lasix Inj) 40 mg DAILY IV PUSH 06/30/17 09:00 06/30/17 07:40 (Lopressor Inj) 2.5 mg Q6H PRN IV PUSH 06/30/17 09:45 06/30/17 16:55 Dextrose/Sodium Chloride 1,000 ml @ 50 mls/hr Q20H IV 06/30/17 10:15 06/30/17 10:18 Miscellaneous Information SPECIFIC LAB TO BE DRAWN:VANCOMYCIN TROUGH DATE TO... ONCE ONCE .XX 07/01/17 08:45 07/01/17 08:46 Vital Signs / I&O Vital Signs Date Time Temp Pulse Resp B/P (MAP) Pulse Ox O2 Delivery O2 Flow Rate FiO2 06/30/17 16:00 99.5 94 19 141/87 (105) 100 06/30/17 16:00 40 06/30/17 16:00 94 06/30/17 15:35 100 40 06/30/17 15:30 94 19 144/82 (102) 100 06/30/17 15:30 94 06/30/17 15:00 93 06/30/17 15:00 93 18 129/59 (82) 100 06/30/17 14:30 97 19 128/69 (88) 100 06/30/17 14:30 97 06/30/17 14:00 97 06/30/17 14:00 97 19 126/67 (86) 100 06/30/17 13:30 94 06/30/17 13:30 94 19 134/66 (88) 100 06/30/17 13:00 95 3/6/18 13:00 95 19 119/65 (83) 100 06/30/17 12:00 103 06/30/17 12:00 99.1 103 19 141/68 (92) 100 06/30/17 12:00 40 06/30/17 11:30 98 06/30/17 11:00 104 17 134/65 (88) 98 06/30/17 11:00 104 06/30/17 10:40 94 25 142/71 (94) 96 06/30/17 10:38 111 19 187/113 (137) 98 06/30/17 10:36 115 19 185/117 (139) 100 06/30/17 10:33 103 20 171/82 (111) 99 06/30/17 10:33 99 40 06/30/17 10:30 40 06/30/17 10:13 103 27 165/82 (109) 100 06/30/17 10:00 124 22 187/88 (121) 100 06/30/17 10:00 124 06/30/17 09:46 40 06/30/17 09:46 100 40 06/30/17 09:30 40 06/30/17 09:29 122 20 147/105 (119) 100 06/30/17 09:00 123 21 197/111 (139) 100 06/30/17 09:00 128 06/30/17 08:00 97 06/30/17 08:00 40 06/30/17 08:00 98.7 97 18 125/74 (91) 100 06/30/17 07:34 100 40 06/30/17 07:00 94 18 136/76 (96) 100 06/30/17 07:00 94 06/30/17 06:00 100 06/30/17 04:02 100 40 06/30/17 04:00 98.9 110 19 134/65 (88) 99 06/30/17 04:00 40 06/30/17 04:00 110 06/30/17 02:00 99 06/30/17 00:41 100 40 06/30/17 00:00 98.6 93 18 127/67 (87) 100 06/30/17 00:00 93 06/30/17 00:00 40 06/29/17 22:00 101 06/29/17 20:03 100 40 06/29/17 20:00 101 06/29/17 20:00 99.2 101 17 126/69 (88) 99 06/29/17 20:00 40 06/29/17 19:00 88 06/29/17 18:06 96 130/64 I/O 06/29/17 06/29/17 06/29/17 06/30/17 06/30/17 06/30/17 07:00 15:00 23:00 07:00 15:00 23:00 Intake Total 357 ml 1060 ml 1709 ml 150 ml 822.5 ml 405 ml Output Total 830 ml 500 ml 3250 ml 1625 ml Balance -473 ml 560 ml -1541 ml -1475 ml 822.5 ml 405 ml Intake Oral 0 ml IV Total 1060 ml 518 ml 150 ml 772.5 ml 405 ml Tube Feeding 357 ml 231 ml Other 960 ml 50 ml Output Urine Total 700 ml 350 ml 3100 ml 1350 ml Drainage Total 130 ml 150 ml 150 ml 275 ml # Bowel Movements 1 0 4 Physical Exam GENERAL: SKIN: Warm and dry. HEAD: Normocephalic. EYES: No scleral icterus. No injection or drainage. NECK: Supple, trachea midline. No JVD or lymphadenopathy. CARDIOVASCULAR: Regular rate and rhythm without murmurs, gallops, or rubs. RESPIRATORY: Breath sounds equal bilaterally. No accessory muscle use. GASTROINTESTINAL: Abdomen soft, non-tender, nondistended. MUSCULOSKELETAL: No cyanosis, or edema. BACK: Nontender without obvious deformity. No CVA tenderness. Laboratory Laboratory Tests Test 06/30/17 03:15 06/30/17 05:21 White Blood Count 5.9 TH/MM3 Red Blood Count 3.42 MIL/MM3 Hemoglobin 7.5 GM/DL Hematocrit 24.6 % Mean Corpuscular Volume 71.9 FL Mean Corpuscular Hemoglobin 21.8 PG Mean Corpuscular Hemoglobin Concent 30.4 % Red Cell Distribution Width 21.7 % Platelet Count 118 TH/MM3 Mean Platelet Volume 8.8 FL Blood Urea Nitrogen 13 MG/DL Creatinine 0.68 MG/DL Random Glucose 77 MG/DL Calcium Level 7.9 MG/DL Phosphorus Level 2.9 MG/DL Magnesium Level 1.8 MG/DL Sodium Level 142 MEQ/L Potassium Level 3.4 MEQ/L Chloride Level 107 MEQ/L Carbon Dioxide Level 28.0 MEQ/L Anion Gap 7 MEQ/L Estimat Glomerular Filtration Rate 89 ML/MIN Blood Gas Puncture Site LT RADIAL Blood Gas Patient Temperature 98.6 Blood Gas HCO3 28 mmol/L Blood Gas Base Excess 4.2 mmol/L Blood Gas Oxygen Saturation 95 % Arterial Blood pH 7.47 Arterial Blood Partial Pressure CO2 38 mmHg Arterial Blood Partial Pressure O2 95 mmHg Arterial Blood Oxygen Content 10.8 Vol % Arterial Blood Carboxyhemoglobin 1.9 % Arterial Blood Methemoglobin 1.3 % Blood Gas Hemoglobin 8.0 G/DL Oxygen Delivery Device VENTILATOR Blood Gas Ventilator Setting SEE COMMENT Blood Gas Inspired Oxygen 40 % Imaging Last 24 hours Impressions Chest X-Ray 06/30/17 0600 Signed Impressions: Service Date/Time: Friday, June 30, 2017 05:14 - CONCLUSION: 1. Persistent moderate-sized bibasilar opacities representing pleural effusions with associated volume loss and/or airspace consolidation. 2. There are new more focal patchy airspace opacities in the left upper lung zone. Stanislaw Galvez MD Assessment and Plan Problem List: (1) Sepsis ICD Codes: A41.9 - Sepsis, unspecified organism (2) Cardiomyopathy ICD Codes: I42.9 - Cardiomyopathy, unspecified (3) Mitral regurgitation ICD Codes: I34.0 - Nonrheumatic mitral (valve) insufficiency (4) Bradycardia ICD Codes: R00.1 - Bradycardia, unspecified (5) Atrial fibrillation with RVR ICD Codes: I48.91 - Unspecified atrial fibrillation Status: Acute (6) Anemia ICD Codes: D64.9 - Anemia, unspecified Status: Acute (7) Pulmonary edema ICD Codes: J81.1 - Chronic pulmonary edema (8) Cholecystitis ICD Codes: K81.9 - Cholecystitis, unspecified Assessment and Plan 1.) Cardiomyopathy - beta jude and clayton held due to septic shock 2.) Afib - consult Dr Arellano, due to tachy-joe syndrome, av gosia bloackade held due to bradycardia, ac held due to pud, severe anemia of indeterminate origin requiring multiple blood transfusions, GI following, i d/w Dr Sevilla ac and suggested getting a hematology consult to further risk stratify, on iv amio 3.) Severe mr - consult ct surgery to determine if patient is a surgical candidate for potential mvr and cath if she is when hemodynamically stable, patient consents and rx plan for cholecystitis defined Problem Qualifiers (1) Anemia: Qualified Codes: D64.9 - Anemia, unspecified Gianni Jeffers MD Jun 30, 2017 17:20
--- NOTE | 2017-06-30 17:57 | HHI.CCPN ---
Subjective Remarks/Hospital Course 57-year-old female. Date of admission 06/23/2017. Date of consultation 2017. Past medical history includes Patient originally presented to [facility] ED in atrial fibrillation with rapid ventricular response. Patient was initially started on a diltiazem drip and then was switched over to metoprolol tartrate 50 mg every 8 hours. After conversion, patient became bradycardic. CT abdomen/pelvis revealed a 1 mm gallstone without signs of cholecystitis. Otherwise unremarkable. The patient became more somnolent on the floor and bradycardic with heart rates as low as 42. EKG revealed sinus bradycardia with a first-degree AV block. Patient was arousable and with good pain in 1-2 word responses but fell asleep immediately. On examination patient did have pain especially in her right upper quadrant. CBC revealed hemoglobin 8.4. Ammonia level 35. BNP of 341. Remainder of laboratories are currently pending. Chest x-ray revealed right lower lobe infiltrate versus effusion. Patient did receive 60 mg total of furosemide within the past 24 hours. 3: Afebrile. Status post percutaneous cholecystostomy tube yesterday with aggressive crystalloid resuscitation. Currently resting in bed in no acute distress. Not on vasopressors. 32: Afebrile. A. fib with RVR overnight started on amiodarone drip. Digoxin 0.25 mg and diltiazem 10 mg given prior to initiation of amiodarone. Remains sedated on the ventilator. Possible seizure activity on EEG. Neurology is been counseled.. EPS cardiology and cardiothoracic surgery also been consulted for tachybradycardia syndrome and severe MR. Dr. Sterling/neurosurgeon is clear to trickle feeds today Subjective 3/3: Afebrile. EEG revealed continuous sharp spikes involving right frontal central region. Remains on levetiracetam at 500 mg every 12 hours. Noted possible switch to fosphenytoin per EEG report. Currently on propofol drip at 30 mcg/kg/min. Withdraws bilateral lower exams. Does not withdraw upper extremities currently. MRI brain currently pending. Tolerating trickle feeds at 10 cc an hour. 3: Repeat EEG pending today. Fosphenytoin added to medication regimen yesterday.No change in neurological assessment. Trickle feeds increased to 20 cc/hour with minimal residuals. 06/29: EEG repeated only showed slow waves possibly medication contributory. Patient previously on anticoagulation prior to admission and her to A. fib RVR, but due to concern for indeterminate source of anemia, GI consulted for recommendations and evaluation of risks/ benefits to initiate anticoagulation therapy. Patient continued to have pleural effusions Lasix IV dose 40 mg given. 06/30: Tolerated CPAP trials 2 hours, continues to be nonresponsive. Patient underwent EGD and colonoscopy colonoscopy was within normal limits. EGD revealed small erosions in the first part of the duodenum and a medium-sized ulcer. Recommended per GI to initiate/ resume anticoagulant therapy. Plan for every 12 hours H&H. Objective Vital Signs Date Time Temp Pulse Resp B/P (MAP) Pulse Ox O2 Delivery O2 Flow Rate FiO2 06/30/17 16:00 99.5 94 19 141/87 (105) 100 06/30/17 16:00 40 Intake and Output 06/30/17 06/30/17 07/01/17 08:00 16:00 00:00 Intake Total 255 ml 717.5 ml 405 ml Output Total 1625 ml Balance -1370 ml 717.5 ml 405 ml Result Diagram: 06/30/17 0315 06/30/17 0315 Other Results Laboratory Tests Test 06/30/17 05:21 Blood Gas Puncture Site LT RADIAL Blood Gas Patient Temperature 98.6 Blood Gas HCO3 28 mmol/L (22-26) Blood Gas Base Excess 4.2 mmol/L (-2-2) Blood Gas Oxygen Saturation 95 % (90-100) Arterial Blood pH 7.47 (7.380-7.420) Arterial Blood Partial Pressure CO2 38 mmHg (38-42) Arterial Blood Partial Pressure O2 95 mmHg (61-120) Arterial Blood Oxygen Content 10.8 Vol % (12.0-20.0) Arterial Blood Carboxyhemoglobin 1.9 % (0-4) Arterial Blood Methemoglobin 1.3 % (0-2) Blood Gas Hemoglobin 8.0 G/DL (12.0-16.0) Oxygen Delivery Device VENTILATOR Blood Gas Ventilator Setting SEE COMMENT Blood Gas Inspired Oxygen 40 % Imaging Last Impressions Chest X-Ray 06/30/17 0600 Signed Impressions: Service Date/Time: Friday, June 30, 2017 05:14 - CONCLUSION: 1. Persistent moderate-sized bibasilar opacities representing pleural effusions with associated volume loss and/or airspace consolidation. 2. There are new more focal patchy airspace opacities in the left upper lung zone. Stanislaw Galvez MD Brain MRI 06/27/17 0000 Signed Impressions: Service Date/Time: Tuesday, June 27, 2017 10:00 - CONCLUSION: 1. No acute intracranial abnormality. 2. Mild chronic small vessel ischemic change. Floyd Tiwari Jr., MD Head CT [id number] Signed Impressions: Service Date/Time: Saturday, June 24, 2017 18:00 - CONCLUSION: No acute disease. Brian Burnett MD Percutaneous Cholangiogram 06/24/17 Signed Impressions: Service Date/Time: Saturday, June 24, 2017 20:36 - CONCLUSION: Uncomplicated percutaneous cholecystostomy as above. Lalo Wong MD Abdomen/Pelvis CT 06/24/17 0000 Signed Impressions: Service Date/Time: Saturday, June 24, 2017 18:05 - CONCLUSION: 1. Bibasilar patchy infiltrates (right worse than left) consistent with probable pneumonia. Clinical correlation is recommended. 2. Worsening pleural effusions which are moderate in size on the right and small on the left. 3. Diffuse peripheral perfusion defects involving the kidneys suggestive of decreased renal function or possible interval development of bilateral pyelonephritis. Clinical correlation is recommended. 4. Gallbladder wall thickening and vicarious excretion of contrast via the gallbladder. Clinical correlation is recommended to rule out cholecystitis. 5. Interval development of ascites within the abdomen. 6. Thickening of the wall of the ascending colon raising possibility of colitis. Clinical correlation is recommended. Brian Burnett MD Last Impressions Chest X-Ray 06/29/17 0600 Signed Impressions: Service Date/Time: Thursday, June 29, 2017 04:28 - CONCLUSION: Stable chest x-ray with bibasilar opacities representing pleural effusions with associated volume loss and airspace consolidation. The overall pattern could be secondary to pulmonary edema. Stanislaw Galvez MD Brain MRI 06/27/17 0000 Signed Impressions: Service Date/Time: Tuesday, June 27, 2017 10:00 - CONCLUSION: 1. No acute intracranial abnormality. 2. Mild chronic small vessel ischemic change. Floyd Tiwari Jr., MD Head CT [id number] Signed Impressions: Service Date/Time: Saturday, June 24, 2017 18:00 - CONCLUSION: No acute disease. Brian Burnett MD Percutaneous Cholangiogram 06/24/17 0000 Signed Impressions: Service Date/Time: Saturday, June 24, 2017 20:36 - CONCLUSION: Uncomplicated percutaneous cholecystostomy as above. Lalo Wong MD Abdomen/Pelvis CT 06/24/17 0000 Signed Impressions: Service Date/Time: Saturday, June 24, 2017 18:05 - CONCLUSION: 1. Bibasilar patchy infiltrates (right worse than left) consistent with probable pneumonia. Clinical correlation is recommended. 2. Worsening pleural effusions which are moderate in size on the right and small on the left. 3. Diffuse peripheral perfusion defects involving the kidneys suggestive of decreased renal function or possible interval development of bilateral pyelonephritis. Clinical correlation is recommended. 4. Gallbladder wall thickening and vicarious excretion of contrast via the gallbladder. Clinical correlation is recommended to rule out cholecystitis. 5. Interval development of ascites within the abdomen. 6. Thickening of the wall of the ascending colon raising possibility of colitis. Clinical correlation is recommended. Brian Burnett MD Last Impressions Chest X-Ray 06/28/17 0600 Signed Impressions: Service Date/Time: Wednesday, June 28, 2017 04:18 - CONCLUSION: Persistent left lower lobe consolidation and hazy opacities in the right mid/lower lung. Floyd Magallanes MD Brain MRI 06/27/17 0000 Signed Impressions: Service Date/Time: Tuesday, June 27, 2017 10:00 - CONCLUSION: 1. No acute intracranial abnormality. 2. Mild chronic small vessel ischemic change. Floyd Tiwari Jr., MD Head CT 06/24/17 1645 Signed Impressions: Service Date/Time: Saturday, June 24, 2017 18:00 - CONCLUSION: No acute disease. Brian Burnett MD Percutaneous Cholangiogram 06/24/17 0000 Signed Impressions: Service Date/Time: Saturday, June 24, 2017 20:36 - CONCLUSION: Uncomplicated percutaneous cholecystostomy as above. Lalo Wong MD Abdomen/Pelvis CT 06/24/17 0000 Signed Impressions: Service Date/Time: Saturday, June 24, 2017 18:05 - CONCLUSION: 1. Bibasilar patchy infiltrates (right worse than left) consistent with probable pneumonia. Clinical correlation is recommended. 2. Worsening pleural effusions which are moderate in size on the right and small on the left. 3. Diffuse peripheral perfusion defects involving the kidneys suggestive of decreased renal function or possible interval development of bilateral pyelonephritis. Clinical correlation is recommended. 4. Gallbladder wall thickening and vicarious excretion of contrast via the gallbladder. Clinical correlation is recommended to rule out cholecystitis. 5. Interval development of ascites within the abdomen. 6. Thickening of the wall of the ascending colon raising possibility of colitis. Clinical correlation is recommended. Brian Burnett MD Last Impressions Chest X-Ray 06/26/17 0600 Signed Impressions: Service Date/Time: Monday, June 26, 2017 05:19 - CONCLUSION: Persistent consolidation in the lower lungs. Location of the gastric tube cannot be determined on this exam. Technical limitations. Floyd Magallanes MD Head CT 06/24/17 1645 Signed Impressions: Service Date/Time: Saturday, June 24, 2017 18:00 - CONCLUSION: No acute disease. Brian Burnett MD Percutaneous Cholangiogram 06/24/17 0000 Signed Impressions: Service Date/Time: Saturday, June 24, 2017 20:36 - CONCLUSION: Uncomplicated percutaneous cholecystostomy as above. Lalo Wong MD Abdomen/Pelvis CT 06/24/17 0000 Signed Impressions: Service Date/Time: Saturday, June 24, 2017 18:05 - CONCLUSION: 1. Bibasilar patchy infiltrates (right worse than left) consistent with probable pneumonia. Clinical correlation is recommended. 2. Worsening pleural effusions which are moderate in size on the right and small on the left. 3. Diffuse peripheral perfusion defects involving the kidneys suggestive of decreased renal function or possible interval development of bilateral pyelonephritis. Clinical correlation is recommended. 4. Gallbladder wall thickening and vicarious excretion of contrast via the gallbladder. Clinical correlation is recommended to rule out cholecystitis. 5. Interval development of ascites within the abdomen. 6. Thickening of the wall of the ascending colon raising possibility of colitis. Clinical correlation is recommended. Brian Burnett MD Objective Remarks GENERAL: 57-year-old female currently orotracheally intubated currently on propofol 30 mcgs/kg/min. and Tenon infusion discontinued SKIN: Warm and dry. No rash. Well perfused HEAD: Atraumatic. Normocephalic. EYES: Pupils equal and round about 2 mm bilaterally and brisk. No scleral icterus. No injection or drainage. ENT: No nasal bleeding or discharge. Mucous membranes pink and moist. NECK: Trachea midline. No JVD. CARDIOVASCULAR: Irregular rhythm, rate currently 70s to 80s. S1, S2. No S4. Without murmur RESPIRATORY: Miss breath sounds in the bases bilaterally. No wheezing GASTROINTESTINAL: Abdomen soft, tender to palpation in the right upper quadrant and epigastric region. Cholecystostomy tube in place -40 cc brown output hypoactive bowel sounds are present MUSCULOSKELETAL: Extremities with trace lower extremity peripheral edema. No obvious deformities. 1+ edema right upper extremity NEUROLOGICAL: Possible corneal reflex. Positive gag and cough. Withdraws to pain bilateral lower extremities. Date of Insertion: Jun 24, 2017 Line: Central Venous Catheter Side: Right Location: Subclavian A/P Assessment and Plan Neuro/Psych: Acute encephalopathy likely toxic metabolic UDS positive for barbiturates Depression/anxiety Seizure questionable Currently on propofol drip at 30 mcg/kg/min for sedation while intubated with fentanyl drip if needed Goal of RASS -2 Daily sedation vacation Acetaminophen 650 mg by tube. every 6 hours as needed fever/pain CT brain 06/24 revealed no acute intracranial findings EEG 06/25 revealed right frontal lobe sharp activity indicative of epileptiform. Loaded with levetiracetam 1 g IV 1 on 06/26 followed by 500 mg IV twice daily. Repeat EEG 06/26 revealed continuous sharps in right frontal region Repeat EEG pending 06/28- slow waves Neurology consult for the recommendations. 06/27 MRI brain-no acute intracranial abnormality Holding paroxetine unknown dosage daily home medication CV: Atrial fibrillation with RVR currently in sinus tachycardia History of atrial fibrillation currently in A. fib with RVR Hypertension Elevated BNP Lactic acidosis resolved Severe MR Severe TR Acute diastolic heart failure Tachybradycardia syndrome EKG reveals sinus bradycardia with first-degree AV block. Admission was A. fib with RVR. Currently on amiodarone drip at 0.5 mg/min. Cardiac markers troponin 0.05 2D echocardiogram revealed EF 45-50%. Decreased LV systolic function. Bilateral atrial enlargement. Severe MR and TR. Cardiology consult by [facility] with Dr. Jeffers EPS consult secondary to tachybradycardia syndrome CT surgery consulted to evaluate severe MR- Dr. Paul following Lactate is cleared 06/26 CVP monitoring trend Diuresed 40 mg furosemide 1 on 06/27. effective 3800 cc, 06/30 Begin Lasix 40 mg IV daily Resp: Acute respiratory insufficiency Right lower lobe infiltrate/pleural effusion PRVC 18/500/1.05/01/39 Ventilator bundle Albuterol/ipratropium aerosols every 6 hours with albuterol aerosols every 2 hours as needed for dyspnea Spontaneous breathing trials when clinically indicated 06/28 Chest x-ray - air space disease and pleural effusions 06/30 Begin CPAP trials- tolerated for 2 hours today GI: Epigastric/right upper quadrant pain Gastroesophageal reflux disease Hyperammonia Cholelithiasis on ultrasound 06/23 possibly acute cholecystitis Hypoalbuminemia CT abdomen/pelvis 06/23 revealed a 1 mm gallstone. No signs of cholecystitis. Otherwise unremarkable CT abdomen/pelvis 06/24 revealed right greater than left pleural effusions. Gallbladder wall thickening with voracious dye excretion, descending colon edema and bilateral perinephric stranding Status post cholecystostomy tube by IR 06/24- output last pm 250cc General surgery recommended continue cholecystostomy tube placement. Outpatient follow-up for cholecystectomy. Okay to initiate trickle feeds today. Currently on Nepro at 10 cc an hour. Continued at 20 cc today. Nutrition recommends Jevity 1.5 goal 50 cc an hour Repeat CT abdomen/pelvis with contrast if worsening symptomatology Previously patient has been on omeprazole 40 mg p.o. daily. Currently on pantoprazole 40 mg IV. daily for gastroesophageal reflux disease Docusate sodium/senna 1 tablet twice daily for bowel regimen Lactulose 30 cc daily for elevated ammonia. GI consulted, Dr. Naqvi - S/P colonoscopy and endoscopy 06/30, upper endoscopy revealed medium-sized ulcer first part of duodenum, multiple small erosions gastric antrum. Colon- Normal mucosa : Ferguson catheter has been placed for accurate I's and O's and critical patient Endo: Acute hypoglycemia likely secondary to sepsis resolved Sliding-scale insulin Novulin R with Accu-Cheks every 4 hours to maintain euglycemia/low regimen TSH -1.76 Renal: Acute kidney injury- resolved Negative urine eosinophils and urine electrolytes likely prerenal indices by Janet No signs of hydronephrosis on CT abdomen/pelvis 06/23. Stranding noted around bilateral kidneys 06/24. Medical renal disease versus pyelonephritis Creatinine improved Heme: Microcytic hypochromic anemia Leukocytosis Resolved DIC Thrombocytopenia We will need iron studies and Hemoccult test done during this hospitalization Self-reported negative EGD/colonoscopy in the past per prior record Transfuse 1 unit PRBCs overnight. Will give 1 FFP and 1 cryo and 10 mg of vitamin K 3/3 Monitor H&H every 12 hours Will begin therapeutic Lovenox 80 mg twice a day ID: Severe sepsis likely gallbladder source plus/minus UA Started on ampicillin/tazobactam with vancomycin day #4 Pertinent cultures 3/ -bile -no growth / -sputum -no growth 06/24 -blood cultures 4 -no growth 06/24 -urine -p no growth Urine Legionella pneumococcal antigens no growth Influenza negative MSK: PT evaluate and treat FEN: Hypernatremia 1 L of quarter normal saline today 1. Replace electrolytes as clinically indicated per ICU electrolyte protocol Access -Right subclavian CVL day #4 placed 06/24. Continue -Right radial arterial line day #4 placed /. Discontinued 3/3 Prophylaxis -GI -pantoprazole -DVT -SCDs/heparin SQ currently, Will await GI recommendations to initiate therapeutic anticoagulation Critical Care: The total critical care time was 30 minutes. Time to perform other separately billable procedures was not included in the critical care time. 3/3 Discussed with Yaneth Garcia. Discussed in detail neurological condition including seizure activity on EEG, imaging being performed, medication adjustments and neurology consultation. Discussed cholecystostomy tube in follow-up with general surgery most likely as an outpatient with current medical condition improves. 3/6 Reinitiated therapeutic anticoagulation today. Lovenox 80 mg BID, with close monitoring of H&H, ok'd with GI Dr. Naqvi Physician Madeleine Crews MD Jun 30, 2017 17:57
[2017-06-30] MEDS: PANTOPRAZOLE SODIUM 40 MG VIAL IV PUSH SCH (20:06)
[2017-06-30] MEDS: ENOXAPARIN SODIUM 80 MG/0.8 ML SYRINGE SQ SCH (20:07)
[2017-06-30 20:57] LABS: HEMATOCRIT 28.5 % (35.0-46.0); HEMOGLOBIN 8.8 GM/DL (11.6-15.3)
[2017-07-01] VITALS (18 sets, daily range): BP systolic 101–159; BP diastolic 56–80; PULSE 81–138; RESP 17–22; TEMP 98.5–99.9; O2SAT 99–100
[2017-07-01] MEDS: PIPERACIL-TAZO 3.375 GM PREMIX 50 ML IV SCH ×4 (01:35→20:46)
[2017-07-01] MEDS: CHLORHEXIDINE GLUCONATE 2 % 1 PACK (2 CLOTHS) TOP SCH (02:12)
[2017-07-01] MEDS: DEXT 5%-NACL 0.45% 1000 ML INJ 1,000 ML IV SCH (03:44)
[2017-07-01 03:55] LABS: HEMATOCRIT 25.4 % (35.0-46.0); HEMOGLOBIN 7.8 GM/DL (11.6-15.3); MEAN CELL VOLUME 70.8 FL (80.0-100.0); MEAN CORPUSCULAR HEMOGLOBIN 21.7 PG (27.0-34.0); MEAN CORPUSCULAR HGB CONC 30.7 % (32.0-36.0); MEAN PLATELET VOLUME 8.6 FL (7.0-11.0); PLATELET COUNT 132 TH/MM3 (150-450); RED BLOOD COUNT 3.59 MIL/MM3 (4.00-5.30); WHITE BLOOD COUNT 7.1 TH/MM3 (4.0-11.0)
[2017-07-01] MEDS: INSULIN NovoLIN REGULAR SUPPLEMENTAL SCALE SQ SCH ×6 (04:00→20:00)
[2017-07-01] MEDS: RESP: ALBUTEROL 2.5 MG/IPRATROPIUM 0.5 MG NEB (SCH) NEB ×4 (04:08→19:23)
[2017-07-01 04:18] LABS: BICARBONATE 27.6 MEQ/L (21.0-32.0); CALCIUM 8.4 MG/DL (8.5-10.1); CREATININE 0.72 MG/DL (0.50-1.00); MAGNESIUM 1.9 MG/DL (1.5-2.5); PHOSPHORUS 2.8 MG/DL (2.5-4.9)
[2017-07-01] MEDS: PROPOFOL 1000 MG/100 ML INJ 100 ML IV PRN ×4 (04:24→20:49)
[2017-07-01] MEDS: POTASSIUM CHLOR 40 MEQ PREMIX 100 ML IV PRN ×3 (04:39→18:49)
--- NOTE | 2017-07-01 04:58 | RADRPT ---
EXAM DATE/TIME: 07/01/2017 03:51 [place] COMPARISON: CHEST SINGLE AP, June 29, 2017, 4:28. CHEST SINGLE AP, June 30, 2017, 5:14. INDICATIONS : Shortness of breath. MEDICAL HISTORY : Anemia. SURGICAL HISTORY : Tubal ligation. ENCOUNTER: Subsequent ACUITY: 2 weeks PAIN SCORE: 0/10 LOCATION: Bilateral chest FINDINGS: Portable AP view of the chest demonstrates a normal-sized cardiac silhouette. ETT, nasogastric tube, and right subclavian central line remain present. EKG lines overlie the patient. There is bilateral p leural-parenchymal opacities bilaterally. No pneumothorax is seen. CONCLUSION: Stable chest x-ray with moderate sized bilateral opacities likely representing pleural effusions with associated volume loss and/or airspace consolidation. Stanislaw Galvez MD on July 01, 2017 at 4:53 Board Certified Radiologist. This report was verified electronically.
[2017-07-01] MEDS: ARTIFICIAL TEARS OPTH SOLN 15 ML BTL EACH EYE SCH ×3 (05:17→20:48)
[2017-07-01] MEDS: FOSPHENYTOIN SODIUM 100 MG PE/2 ML VIAL IV SCH ×3 (05:17→20:48)
[2017-07-01] MEDS: ENOXAPARIN SODIUM 80 MG/0.8 ML SYRINGE SQ SCH ×2 (05:17→18:44)
[2017-07-01] MEDS: METOPROLOL TARTRATE 5 MG/5 ML VIAL IV PUSH PRN (05:55)
[2017-07-01] MEDS ORDERED: PHARMACY ORDERED LAB ONE (08:45)
[2017-07-01] MEDS: AMIODARONE 200 MG TAB PO SCH ×2 (09:00→20:47)
[2017-07-01] MEDS: DOCUSATE SODIUM 50 MG/SENNA 8.6 MG TAB PO SCH ×2 (09:00→20:47)
[2017-07-01] MEDS: levETIRAcetam INJ 500 MG in SODIUM CHLORIDE 0.9% INJ 100 ML IV SCH ×2 (09:06→20:47)
[2017-07-01] MEDS: FUROSEMIDE 40 MG/4 ML VIAL IV PUSH SCH (09:06)
[2017-07-01] MEDS: VANCOMYCIN INJ 1,750 MG in SODIUM CHLORID 0.9% 500 ML INJ 500 ML IV SCH (09:07)
[2017-07-01] MEDS: SODIUM CHLORIDE 0.9% FLUSH 10 ML FLUSH IV FLUSH SCH ×2 (09:08→20:47)
[2017-07-01] MEDS: CHLORHEXIDINE 0.12% (ORAL KIT) 15 ML CUP MT SCH ×2 (09:08→20:46)
[2017-07-01] MEDS ORDERED: ALTEPLASE RECOMBINANT 2 MG VIAL INTRACATH ONE (12:15)
--- NOTE | 2017-07-01 14:19 | PD.CARD.PN ---
Subjective Subjective Remarks intubated, sedated Objective Medications Current Medications Medications (Trade) Dose Ordered Sig/Salud Route Start Time Stop Time Status Last Admin (Narcan Inj) 0.4 mg UNSCH PRN IV PUSH 06/23/17 20:30 Potassium Chloride 100 ml @ 25 mls/hr Q2H PRN IV 06/24/17 17:00 07/01/17 06:34 Potassium Chloride 100 ml @ 50 mls/hr Q2H PRN IV 06/24/17 17:00 (K-Lyte Cl Eff) 50 meq UNSCH PRN PO 06/24/17 17:00 Potassium Chloride 100 ml @ 25 mls/hr UNSCH PRN IV 06/24/17 17:00 06/30/17 05:18 Potassium Chloride 100 ml @ 50 mls/hr Q2H PRN IV 06/24/17 17:00 06/28/17 09:04 Magnesium Sulfate 4 gm/Sodium Chloride 100 ml @ 50 mls/hr UNSCH PRN IV 06/24/17 17:00 (Mag-Ox) 800 mg UNSCH PRN PO 06/24/17 17:00 Magnesium Sulfate 2 gm/Sodium Chloride 100 ml @ 50 mls/hr UNSCH PRN IV 06/24/17 17:00 06/25/17 07:53 (K-Phos) 2,000 mg Q4H PRN PO 06/24/17 17:00 Sodium Phosphate 30 mmol/Sodium Chloride 250 ml @ 42 mls/hr UNSCH PRN IV 06/24/17 17:00 (K-Phos) 2,000 mg UNSCH PRN PO/TUBE 06/24/17 17:00 Potassium Phosphate 30 mmol/ Sodium Chloride 260 ml @ 42 mls/hr UNSCH PRN IV 06/24/17 17:00 (D50w (Vial) Inj) 50 ml UNSCH PRN IV PUSH 06/24/17 17:00 (Glucagon Inj) 1 mg UNSCH PRN OTHER 06/24/17 17:00 (NS Flush) 2 ml UNSCH PRN IV FLUSH 06/24/17 17:00 (NS Flush) 2 ml BID IV FLUSH 06/24/17 21:00 07/01/17 09:08 (Zofran Inj) 4 mg Q6H PRN IV PUSH 06/24/17 17:00 (Albuterol Neb) 2.5 mg Q2HR NEB PRN INH 06/24/17 17:00 Miscellaneous Information 1 Q361D XX 06/24/17 18:00 (Chlorhexidine 2% Cloth) Taper DAILY@04 TOP 06/25/17 04:00 06/21/18 03:59 06/29/17 04:00 (Chlorhexidine 2% Cloth) 3 pack UNSCH PRN TOP 06/24/17 17:00 (Keiry-Colace) 1 tab BID PO 06/24/17 21:00 06/29/17 20:30 (Milk Of Magnesia Liq) 30 ml Q12H PRN PO 06/24/17 17:00 06/28/17 15:30 (Senokot) 17.2 mg Q12H PRN PO 06/24/17 17:00 (Dulcolax Supp) 10 mg DAILY PRN RECTAL 06/24/17 17:00 (Lactulose Liq) 30 ml DAILY PRN PO 06/24/17 17:00 Piperacillin Sod/ Tazobactam Sod 50 ml @ 100 mls/hr Q6H IV 06/24/17 20:00 07/01/17 13:57 Pharmacy Profile Note 0 ml @ 0 mls/hr UNSCH OTHER 06/24/17 18:00 (Peridex 0.12% Liq) 15 ml BID@08,20 MT 06/24/17 20:00 07/01/17 09:08 Propofol 100 ml @ 2.13 mls/hr TITRATE PRN IV 06/24/17 19:30 07/01/17 11:38 (Brethine Inj) 1 mg UNSCH PRN SQ 06/24/17 19:30 (Tears Naturale Opth Soln) 1 drop Q8HR EACH EYE 06/24/17 22:00 07/01/17 13:56 (NovoLIN R SUPPLEMENTAL SCALE) 1 Q4HR SQ 06/24/17 20:00 (Protonix Inj) 40 mg Q24H IV PUSH 06/24/17 20:00 06/30/17 20:06 (Tylenol 650 Mg/ 20 ml Liq) 650 mg Q6H PRN NG 06/25/17 08:45 Levetriacetam 500 mg/Sodium Chloride 105 ml @ 420 mls/hr Q12HR IV 06/26/17 21:00 07/01/17 09:06 (Cerebyx Inj) 100 mgpe Q8HR IV 06/27/17 22:00 07/01/17 13:57 (Cordarone) 200 mg Q12HR PO 06/29/17 16:00 07/01/17 09:00 (Duoneb Neb) 1 ampule Q6HR NEB NEB 06/29/17 16:00 07/01/17 08:32 Vancomycin HCl 1750 mg/Sodium Chloride 517.5 ml @ 250 mls/hr Q24H IV 06/30/17 09:00 07/01/17 09:07 (Lasix Inj) 40 mg DAILY IV PUSH 06/30/17 09:00 07/01/17 09:06 (Lopressor Inj) 2.5 mg Q6H PRN IV PUSH 06/30/17 09:45 07/01/17 05:55 Dextrose/Sodium Chloride 1,000 ml @ 50 mls/hr Q20H IV 06/30/17 10:15 06/30/17 10:18 (Lovenox Inj) 80 mg Q12H SQ 06/30/17 19:00 07/01/17 05:17 Vital Signs / I&O Vital Signs Date Time Temp Pulse Resp B/P (MAP) Pulse Ox O2 Delivery O2 Flow Rate FiO2 07/01/17 12:15 99 30 07/01/17 10:00 138 07/01/17 08:28 100 30 07/01/17 08:00 81 07/01/17 08:00 98.5 81 22 101/56 (71) 100 07/01/17 08:00 40 07/01/17 06:00 100 07/01/17 04:08 100 40 07/01/17 04:00 98.6 100 18 154/74 (100) 100 07/01/17 04:00 100 07/01/17 04:00 40 07/01/17 02:00 103 07/01/17 00:40 100 40 07/01/17 00:00 40 07/01/17 00:00 99.9 110 18 159/74 (102) 100 07/01/17 00:00 110 06/30/17 22:00 115 06/30/17 20:11 100 40 06/30/17 20:00 99 06/30/17 20:00 99.6 99 19 173/74 (107) 100 06/30/17 20:00 40 06/30/17 18:00 99 06/30/17 16:00 99.5 94 19 141/87 (105) 100 06/30/17 16:00 40 06/30/17 16:00 94 06/30/17 15:35 100 40 06/30/17 15:30 94 19 144/82 (102) 100 06/30/17 15:30 94 06/30/17 15:00 93 06/30/17 15:00 93 18 129/59 (82) 100 06/30/17 14:30 97 19 128/69 (88) 100 06/30/17 14:30 97 I/O 06/30/17 06/30/17 06/30/17 07/01/17 07/01/17 07/01/17 07:00 15:00 23:00 07:00 15:00 23:00 Intake Total 150 ml 822.5 ml 720 ml 471 ml Output Total 1625 ml 4000 ml 700 ml Balance -1475 ml 822.5 ml -3280 ml -229 ml IV Total 150 ml 772.5 ml 660 ml 150 ml Tube Feeding 0 ml 321 ml Other 50 ml 60 ml Output Urine Total 1350 ml 3750 ml 600 ml Drainage Total 275 ml 250 ml 100 ml # Bowel Movements 4 2 Physical Exam GENERAL: SKIN: Warm and dry. HEAD: Normocephalic. EYES: No scleral icterus. No injection or drainage. NECK: Supple, trachea midline. No JVD or lymphadenopathy. CARDIOVASCULAR: Regular rate and rhythm without murmurs, gallops, or rubs. RESPIRATORY: Breath sounds equal bilaterally. No accessory muscle use. GASTROINTESTINAL: Abdomen soft, non-tender, nondistended. MUSCULOSKELETAL: No cyanosis, or edema. BACK: Nontender without obvious deformity. No CVA tenderness. Laboratory Laboratory Tests Test 06/30/17 20:23 07/01/17 03:30 07/01/17 08:45 Hemoglobin 8.8 GM/DL 7.8 GM/DL Hematocrit 28.5 % 25.4 % White Blood Count 7.1 TH/MM3 Red Blood Count 3.59 MIL/MM3 Mean Corpuscular Volume 70.8 FL Mean Corpuscular Hemoglobin 21.7 PG Mean Corpuscular Hemoglobin Concent 30.7 % Red Cell Distribution Width 22.0 % Platelet Count 132 TH/MM3 Mean Platelet Volume 8.6 FL Blood Urea Nitrogen 12 MG/DL Creatinine 0.72 MG/DL Random Glucose 98 MG/DL Calcium Level 8.4 MG/DL Phosphorus Level 2.8 MG/DL Magnesium Level 1.9 MG/DL Sodium Level 140 MEQ/L Potassium Level 3.2 MEQ/L Chloride Level 105 MEQ/L Carbon Dioxide Level 27.6 MEQ/L Anion Gap 7 MEQ/L Estimat Glomerular Filtration Rate 83 ML/MIN Vancomycin Level Trough 12.5 MCG/ML Imaging Last 24 hours Impressions Chest X-Ray 07/01/17 0600 Signed Impressions: Service Date/Time: Saturday, July 01, 2017 03:51 - CONCLUSION: Stable chest x-ray with moderate sized bilateral opacities likely representing pleural effusions with associated volume loss and/or airspace consolidation. Stanislaw Galvez MD Assessment and Plan Problem List: (1) Sepsis ICD Codes: A41.9 - Sepsis, unspecified organism (2) Cardiomyopathy ICD Codes: I42.9 - Cardiomyopathy, unspecified (3) Mitral regurgitation ICD Codes: I34.0 - Nonrheumatic mitral (valve) insufficiency (4) Bradycardia ICD Codes: R00.1 - Bradycardia, unspecified (5) Atrial fibrillation with RVR ICD Codes: I48.91 - Unspecified atrial fibrillation Status: Acute (6) Anemia ICD Codes: D64.9 - Anemia, unspecified Status: Acute (7) Pulmonary edema ICD Codes: J81.1 - Chronic pulmonary edema (8) Cholecystitis ICD Codes: K81.9 - Cholecystitis, unspecified Assessment and Plan 1.) Cardiomyopathy - beta jude and clayton held due to septic shock 2.) Afib - consult Dr Arellano, due to tachy-joe syndrome, av gosia bloackade held due to bradycardia, ac held due to pud, severe anemia of indeterminate origin requiring multiple blood transfusions, GI following, i d/w Dr Roel basilio and suggested getting a hematology consult to further risk stratify, on iv amio 3.) Severe mr - consult ct surgery to determine if patient is a surgical candidate for potential mvr and cath if she is when hemodynamically stable, patient consents and rx plan for cholecystitis defined 4.) I am on vacation until june, Dr Porter covering me Problem Qualifiers (1) Anemia: Qualified Codes: D64.9 - Anemia, unspecified Gianni Jeffers MD Jul 01, 2017 14:19
--- NOTE | 2017-07-01 15:57 | HHI.GIFU ---
Subjective Remarks Pt remains sedated and mechanically ventilated. On TF, Nepro at 20mL/hr. Per RN pt had a few small episodes of diarrhea this morning. (Carin Camilo) Objective Vitals I&O Vital Signs Date Time Temp Pulse Resp B/P (MAP) Pulse Ox O2 Delivery O2 Flow Rate FiO2 07/01/17 15:12 100 30 07/01/17 14:00 99 07/01/17 12:15 99 30 07/01/17 12:00 88 07/01/17 12:00 98.7 88 21 134/68 (90) 100 07/01/17 10:00 138 07/01/17 08:28 100 30 07/01/17 08:00 81 07/01/17 08:00 98.5 81 22 101/56 (71) 100 07/01/17 08:00 40 07/01/17 06:00 100 07/01/17 04:08 100 40 07/01/17 04:00 98.6 100 18 154/74 (100) 100 07/01/17 04:00 100 07/01/17 04:00 40 07/01/17 02:00 103 07/01/17 00:40 100 40 07/01/17 00:00 40 07/01/17 00:00 99.9 110 18 159/74 (102) 100 07/01/17 00:00 110 06/30/17 22:00 115 06/30/17 20:11 100 40 06/30/17 20:00 99 06/30/17 20:00 99.6 99 19 173/74 (107) 100 06/30/17 20:00 40 06/30/17 18:00 99 06/30/17 16:00 99.5 94 19 141/87 (105) 100 06/30/17 16:00 40 06/30/17 16:00 94 I/O 06/30/17 06/30/17 06/30/17 07/01/17 07/01/17 07/01/17 07:00 15:00 23:00 07:00 15:00 23:00 Intake Total 150 ml 822.5 ml 720 ml 471 ml Output Total 1625 ml 4000 ml 700 ml Balance -1475 ml 822.5 ml -3280 ml -229 ml IV Total 150 ml 772.5 ml 660 ml 150 ml Tube Feeding 0 ml 321 ml Other 50 ml 60 ml Output Urine Total 1350 ml 3750 ml 600 ml Drainage Total 275 ml 250 ml 100 ml # Bowel Movements 4 2 Laboratory Laboratory Tests Test 06/30/17 20:23 07/01/17 03:30 07/01/17 08:45 Hemoglobin 8.8 7.8 Hematocrit 28.5 25.4 White Blood Count 7.1 Red Blood Count 3.59 Mean Corpuscular Volume 70.8 Mean Corpuscular Hemoglobin 21.7 Mean Corpuscular Hemoglobin Concent 30.7 Red Cell Distribution Width 22.0 Platelet Count 132 Mean Platelet Volume 8.6 Blood Urea Nitrogen 12 Creatinine 0.72 Random Glucose 98 Calcium Level 8.4 Phosphorus Level 2.8 Magnesium Level 1.9 Sodium Level 140 Potassium Level 3.2 Chloride Level 105 Carbon Dioxide Level 27.6 Anion Gap 7 Estimat Glomerular Filtration Rate 83 Vancomycin Level Trough 12.5 Date/Time Source Procedure Growth Status 06/24/17 20:19 Blood Peripheral Aerobic Blood Culture - Final NO GROWTH IN 5 DAYS Complete 06/24/17 20:19 Blood Peripheral Anaerobic Blood Culture - Final NO GROWTH IN 5 DAYS Complete 06/25/17 08:00 Fluid Bile Fluid Gram Stain - Final Complete 06/25/17 08:00 Fluid Bile Fluid Body Fluid Culture - Final NO GROWTH IN 72 HRS.--AEROBICALLY OR ... Complete 06/25/17 00:54 Sputum Expectorated Sputum Gram Stain - Final Complete 06/25/17 00:54 Sputum Expectorated Sputum Sputum Culture - Final HEAVY GROWTH NORMAL RESPIRATORY DELIO Complete 06/25/17 01:25 Urine Catheterized Urine Legionella Antigen - Final PRESUMPTIVE NEGATIVE FOR LEGIONELLA P... Complete 06/25/17 01:25 Urine Catheterized Urine Streptococcus pneumoniae Antigen (M - Final PRESUMPTIVE NEGATIVE FOR STREPTOCOCCU... Complete Imaging Last Impressions Chest X-Ray 07/01/17 0600 Signed Impressions: Service Date/Time: Saturday, July 01, 2017 03:51 - CONCLUSION: Stable chest x-ray with moderate sized bilateral opacities likely representing pleural effusions with associated volume loss and/or airspace consolidation. Stanislaw Galvez MD Brain MRI 06/27/17 0000 Signed Impressions: Service Date/Time: Tuesday, June 27, 2017 10:00 - CONCLUSION: 1. No acute intracranial abnormality. 2. Mild chronic small vessel ischemic change. Floyd Tiwari Jr., MD Head CT 06/24/17 1645 Signed Impressions: Service Date/Time: Saturday, June 24, 2017 18:00 - CONCLUSION: No acute disease. Brian Burnett MD Percutaneous Cholangiogram 06/24/17 0000 Signed Impressions: Service Date/Time: Saturday, June 24, 2017 20:36 - CONCLUSION: Uncomplicated percutaneous cholecystostomy as above. Lalo Wong MD Abdomen/Pelvis CT 06/24/17 0000 Signed Impressions: Service Date/Time: Saturday, June 24, 2017 18:05 - CONCLUSION: 1. Bibasilar patchy infiltrates (right worse than left) consistent with probable pneumonia. Clinical correlation is recommended. 2. Worsening pleural effusions which are moderate in size on the right and small on the left. 3. Diffuse peripheral perfusion defects involving the kidneys suggestive of decreased renal function or possible interval development of bilateral pyelonephritis. Clinical correlation is recommended. 4. Gallbladder wall thickening and vicarious excretion of contrast via the gallbladder. Clinical correlation is recommended to rule out cholecystitis. 5. Interval development of ascites within the abdomen. 6. Thickening of the wall of the ascending colon raising possibility of colitis. Clinical correlation is recommended. Brian Burnett MD Physical Exam HEENT: Normocephalic; atraumatic CHEST: Synchronized with mechanical ventilation via ETT CARDIAC: Irregularly irregular ABDOMEN: Soft, nondistended, nontender; bowel sounds active SKIN: Normal; no rash; no jaundice. WEATHER ANALYST: Sedated (Carin Camilo) Assessment and Plan Plan ASSESSMENT - anemia - microcytic, hypochromic. Per daughter pt has been requiring mult trips to ER for blood transfusion. No obvious source of bleeding. EGD 6m ago in [place], no bleeding seen. Last colonoscopy 8 y ago - leukocytosis - wbc trending down ?cholecystitis vs colitis - elevated LFTs - ?cholecystitis, s/p cholecystostomy tube, CT 06/24/17 showed gb wall thickening, interval development ascites poss colitis GS following - encephalopathy, AF w RVR, tachy bradycardic syndrome, sepsis likely gb etiology per [facility] (07/01) --> Anemia- S/P EGD and colonoscopy yesterday Findings: EGD --> Normal esophagus. Multiple small erosions were found in the gastric antrum. Biopsies. Medium sized ulcer in the 1st part of the duodenum. Normal duodenal mucosa in the 2nd part of the duodenum. Colonoscopy --> Normal colon. Drop in H/H noted today, currently 7.8/25.4 Per RN, has had a few small episodes of diarrhea this morning that did not have any BRB or appear black and tarry. Started on Lovenox last night Transaminitis, elevated bili CT revealing gallbladder wall thickening and vicarious excretion of contrast via the gallbladder. S/P cholecystostomy tube per GS. Leukocytosis improved. LFTs trending down. PLAN - OK to restart anticoagulation - Monitor H/H - Notify GI of active bleeding - If drop in H/H consider hematology consult - EGD biopsy pending - Protonix - Monitor labs - Cholecystostomy tube per GS - No indication of GI bleeding as source of anemia, GI will sign off please reconsult as needed. Pt has been seen and examined by myself and Dr. Naqvi and this note is written on his behalf (Carin Camilo) Physician Comments Plan as above, monitor for GI bleeding while anticoagulated . Notify us if needed again. (Marcy Naqvi MD) Carin Camilo Jul 01, 2017 15:57 Marcy Naqvi MD Jul 02, 2017 09:31
--- NOTE | 2017-07-01 16:22 | PD.CAR.PN ---
CVT Progress Note Subjective/Hospital Course: A 57-year-old female that initially presented to the emergency room with mid epigastric pain, short of breath for a couple of days, was in the process of moving to [place], has been out of her medications for the past week, has a history of atrial fibrillation, stopped her Xarelto 3 weeks ago, questionable rash, was found to be in atrial fibrillation with RVR, CHF. They did an echo, which showed mitral valve regurgitation, tricuspid regurgitation, EF 45%. They started her initially on Cardizem drip and then switched over to metoprolol. The patient converted and became somewhat bradycardic. They also did a CT abdomen and pelvis, which revealed a 1 mm gallstone with signs of cholecystitis. She has since undergone cholecystostomy tube on the . While she was on the medical floor, she became more somnolent and bradycardic with heart rates in the 40s, first-degree AV block. She was arousable, 1-2 word responses, but fell asleep immediately. Still had pain mid upper quadrant. Ammonia level was 35, BNP was 341, lactic acid was 11. During the course of the evening, she was still in atrial fibrillation, was given digoxin. She apparently had been intubated at some point. There was possible seizure activity on EEG. We consulted because of the severe mitral regurgitation. PAST MEDICAL HISTORY: Mitral regurgitation, chronic atrial fibrillation, anemia, anxiety, gastroesophageal reflux disease. 3/ still having some epileptic focus on EEG per Neuro, on Keppra , Cerebyx, versed and propofol pupils [place] , , sedated on vent remains in afib rate controlled 3/ pt not following commands CPAP trials, became tachycardic, placed back on propofol Objective: GENERAL orotracheally intubated currently on propofol 30 mcgs/kg/min. SKIN: Warm and dry. No rash. Well perfused HEAD: Atraumatic. Normocephalic. EYES: Pupils equal and round about 2 mm bilaterally and brisk. No scleral icterus. No injection or drainage. ENT: No nasal bleeding or discharge. Mucous membranes pink and moist. NECK: Trachea midline. No JVD. CARDIOVASCULAR: Irregular rhythm, rate currently 70s to 80s. S1, S2. No S4. Without murmur RESPIRATORY: breath sounds in the bases bilaterally. No wheezing GASTROINTESTINAL: Abdomen soft, tender to palpation in the right upper quadrant and epigastric region. Cholecystostomy tube in place -40 cc brown output hypoactive bowel sounds are present MUSCULOSKELETAL: Extremities with trace lower extremity peripheral edema. No obvious deformities. 1+ edema right upper extremity NEUROLOGICAL: Possible corneal reflex. Positive gag and cough. Withdraws to pain bilateral lower extremities. Date Time Temp Pulse Resp B/P (MAP) Pulse Ox O2 Delivery O2 Flow Rate FiO2 07/01/17 15:12 100 30 07/01/17 14:00 99 07/01/17 12:15 99 30 07/01/17 12:00 88 07/01/17 12:00 98.7 88 21 134/68 (90) 100 07/01/17 10:00 138 07/01/17 08:28 100 30 07/01/17 08:00 81 07/01/17 08:00 98.5 81 22 101/56 (71) 100 07/01/17 08:00 40 07/01/17 06:00 100 07/01/17 04:08 100 40 07/01/17 04:00 98.6 100 18 154/74 (100) 100 07/01/17 04:00 100 07/01/17 04:00 40 07/01/17 02:00 103 07/01/17 00:40 100 40 07/01/17 00:00 40 07/01/17 00:00 99.9 110 18 159/74 (102) 100 07/01/17 00:00 110 06/30/17 22:00 115 06/30/17 20:11 100 40 06/30/17 20:00 99 06/30/17 20:00 99.6 99 19 173/74 (107) 100 06/30/17 20:00 40 06/30/17 18:00 99 Labs: Laboratory Tests Test 07/01/17 08:45 Vancomycin Level Trough 12.5 MCG/ML (5.0-10.0) Result Diagram: 07/01/1732907/01/17329 (1) Sepsis Plan: cultures neg to date (2) Cardiomyopathy (3) Mitral regurgitation Plan: will monitor peripherally please notify us when pt extubated off all sedation (4) Bradycardia (5) Atrial fibrillation with RVR (6) Anemia (7) Pulmonary edema (8) Cholecystitis Problem Qualifiers (1) Anemia: Qualified Codes: D64.9 - Anemia, unspecified Charis Hines Jul 01, 2017 16:22
[2017-07-01] MEDS: PANTOPRAZOLE SODIUM 40 MG VIAL IV PUSH SCH (20:46)
--- NOTE | 2017-07-01 20:49 | HHI.CCPN ---
Subjective Remarks/Hospital Course 57-year-old female. Date of admission 06/23/2017. Date of consultation 2017. Past medical history includes Patient originally presented to [facility] ED in atrial fibrillation with rapid ventricular response. Patient was initially started on a diltiazem drip and then was switched over to metoprolol tartrate 50 mg every 8 hours. After conversion, patient became bradycardic. CT abdomen/pelvis revealed a 1 mm gallstone without signs of cholecystitis. Otherwise unremarkable. The patient became more somnolent on the floor and bradycardic with heart rates as low as 42. EKG revealed sinus bradycardia with a first-degree AV block. Patient was arousable and with good pain in 1-2 word responses but fell asleep immediately. On examination patient did have pain especially in her right upper quadrant. CBC revealed hemoglobin 8.4. Ammonia level 35. BNP of 341. Remainder of laboratories are currently pending. Chest x-ray revealed right lower lobe infiltrate versus effusion. Patient did receive 60 mg total of furosemide within the past 24 hours. 3: Afebrile. Status post percutaneous cholecystostomy tube yesterday with aggressive crystalloid resuscitation. Currently resting in bed in no acute distress. Not on vasopressors. 32: Afebrile. A. fib with RVR overnight started on amiodarone drip. Digoxin 0.25 mg and diltiazem 10 mg given prior to initiation of amiodarone. Remains sedated on the ventilator. Possible seizure activity on EEG. Neurology is been counseled.. EPS cardiology and cardiothoracic surgery also been consulted for tachybradycardia syndrome and severe MR. Dr. Sterling/neurosurgeon is clear to trickle feeds today Subjective 3/3: Afebrile. EEG revealed continuous sharp spikes involving right frontal central region. Remains on levetiracetam at 500 mg every 12 hours. Noted possible switch to fosphenytoin per EEG report. Currently on propofol drip at 30 mcg/kg/min. Withdraws bilateral lower exams. Does not withdraw upper extremities currently. MRI brain currently pending. Tolerating trickle feeds at 10 cc an hour. 3: Repeat EEG pending today. Fosphenytoin added to medication regimen yesterday.No change in neurological assessment. Trickle feeds increased to 20 cc/hour with minimal residuals. 06/29: EEG repeated only showed slow waves possibly medication contributory. Patient previously on anticoagulation prior to admission and her to A. fib RVR, but due to concern for indeterminate source of anemia, GI consulted for recommendations and evaluation of risks/ benefits to initiate anticoagulation therapy. Patient continued to have pleural effusions Lasix IV dose 40 mg given. 06/30: Tolerated CPAP trials 2 hours, continues to be nonresponsive. Patient underwent EGD and colonoscopy colonoscopy was within normal limits. EGD revealed small erosions in the first part of the duodenum and a medium-sized ulcer. Recommended per GI to initiate/ resume anticoagulant therapy. Plan for every 12 hours H&H. 07/01: Patient remained on CPAP trials for approximately 2 hours. Patient remains encephalopathic off sedation. Noted hemoglobin drop will continue to closely monitor as therapeutic anticoagulation was initiated yesterday. Objective Vital Signs Date Time Temp Pulse Resp B/P (MAP) Pulse Ox O2 Delivery O2 Flow Rate FiO2 07/01/17 18:00 121 07/01/17 16:00 98.6 19 119/66 (83) 100 07/01/17 15:12 30 Intake and Output 07/01/17 07/01/17 07/02/17 08:00 16:00 00:00 Intake Total 471 ml 240 ml Output Total 700 ml 3650 ml Balance -229 ml -3410 ml Result Diagram: 07/01/17 0330 07/01/17 1300 Imaging Last Impressions Chest X-Ray 06/30/17 0600 Signed Impressions: Service Date/Time: Friday, June 30, 2017 05:14 - CONCLUSION: 1. Persistent moderate-sized bibasilar opacities representing pleural effusions with associated volume loss and/or airspace consolidation. 2. There are new more focal patchy airspace opacities in the left upper lung zone. Stanislaw Galvez MD Brain MRI 06/27/17 0000 Signed Impressions: Service Date/Time: Tuesday, June 27, 2017 10:00 - CONCLUSION: 1. No acute intracranial abnormality. 2. Mild chronic small vessel ischemic change. Floyd Tiwari Jr., MD Head CT 06/24/17 1645 Signed Impressions: Service Date/Time: Saturday, June 24, 2017 18:00 - CONCLUSION: No acute disease. Brian Burnett MD Percutaneous Cholangiogram 06/24/17 0000 Signed Impressions: Service Date/Time: Saturday, June 24, 2017 20:36 - CONCLUSION: Uncomplicated percutaneous cholecystostomy as above. Lalo Wong MD Abdomen/Pelvis CT 06/24/17 0000 Signed Impressions: Service Date/Time: Saturday, June 24, 2017 18:05 - CONCLUSION: 1. Bibasilar patchy infiltrates (right worse than left) consistent with probable pneumonia. Clinical correlation is recommended. 2. Worsening pleural effusions which are moderate in size on the right and small on the left. 3. Diffuse peripheral perfusion defects involving the kidneys suggestive of decreased renal function or possible interval development of bilateral pyelonephritis. Clinical correlation is recommended. 4. Gallbladder wall thickening and vicarious excretion of contrast via the gallbladder. Clinical correlation is recommended to rule out cholecystitis. 5. Interval development of ascites within the abdomen. 6. Thickening of the wall of the ascending colon raising possibility of colitis. Clinical correlation is recommended. Brian Burnett MD Last Impressions Chest X-Ray 06/29/17 0600 Signed Impressions: Service Date/Time: Thursday, June 29, 2017 04:28 - CONCLUSION: Stable chest x-ray with bibasilar opacities representing pleural effusions with associated volume loss and airspace consolidation. The overall pattern could be secondary to pulmonary edema. Stanislaw Galvez MD Brain MRI 06/27/17 0000 Signed Impressions: Service Date/Time: Tuesday, June 27, 2017 10:00 - CONCLUSION: 1. No acute intracranial abnormality. 2. Mild chronic small vessel ischemic change. Floyd Tiwari Jr., MD Head CT 06/24/17 1645 Signed Impressions: Service Date/Time: Saturday, June 24, 2017 18:00 - CONCLUSION: No acute disease. Brian Burnett MD Percutaneous Cholangiogram 06/24/17 0000 Signed Impressions: Service Date/Time: Saturday, June 24, 2017 20:36 - CONCLUSION: Uncomplicated percutaneous cholecystostomy as above. Lalo Wong MD Abdomen/Pelvis CT 06/24/17 0000 Signed Impressions: Service Date/Time: Saturday, June 24, 2017 18:05 - CONCLUSION: 1. Bibasilar patchy infiltrates (right worse than left) consistent with probable pneumonia. Clinical correlation is recommended. 2. Worsening pleural effusions which are moderate in size on the right and small on the left. 3. Diffuse peripheral perfusion defects involving the kidneys suggestive of decreased renal function or possible interval development of bilateral pyelonephritis. Clinical correlation is recommended. 4. Gallbladder wall thickening and vicarious excretion of contrast via the gallbladder. Clinical correlation is recommended to rule out cholecystitis. 5. Interval development of ascites within the abdomen. 6. Thickening of the wall of the ascending colon raising possibility of colitis. Clinical correlation is recommended. Brian Burnett MD Last Impressions Chest X-Ray 06/28/17 0600 Signed Impressions: Service Date/Time: Wednesday, June 28, 2017 04:18 - CONCLUSION: Persistent left lower lobe consolidation and hazy opacities in the right mid/lower lung. Floyd Magallanes MD Brain MRI 06/27/17 0000 Signed Impressions: Service Date/Time: Tuesday, June 27, 2017 10:00 - CONCLUSION: 1. No acute intracranial abnormality. 2. Mild chronic small vessel ischemic change. Floyd Tiwari Jr., MD Head CT 06/24/17 1645 Signed Impressions: Service Date/Time: Saturday, June 24, 2017 18:00 - CONCLUSION: No acute disease. Brian Burnett MD Percutaneous Cholangiogram 06/24/17 0000 Signed Impressions: Service Date/Time: Saturday, June 24, 2017 20:36 - CONCLUSION: Uncomplicated percutaneous cholecystostomy as above. Lalo Wong MD Abdomen/Pelvis CT 06/24/17 0000 Signed Impressions: Service Date/Time: Saturday, June 24, 2017 18:05 - CONCLUSION: 1. Bibasilar patchy infiltrates (right worse than left) consistent with probable pneumonia. Clinical correlation is recommended. 2. Worsening pleural effusions which are moderate in size on the right and small on the left. 3. Diffuse peripheral perfusion defects involving the kidneys suggestive of decreased renal function or possible interval development of bilateral pyelonephritis. Clinical correlation is recommended. 4. Gallbladder wall thickening and vicarious excretion of contrast via the gallbladder. Clinical correlation is recommended to rule out cholecystitis. 5. Interval development of ascites within the abdomen. 6. Thickening of the wall of the ascending colon raising possibility of colitis. Clinical correlation is recommended. Brian Burnett MD Last Impressions Chest X-Ray 06/26/17 0600 Signed Impressions: Service Date/Time: Monday, June 26, 2017 05:19 - CONCLUSION: Persistent consolidation in the lower lungs. Location of the gastric tube cannot be determined on this exam. Technical limitations. Floyd Magallanes MD Head CT 06/24/17 1645 Signed Impressions: Service Date/Time: Saturday, June 24, 2017 18:00 - CONCLUSION: No acute disease. Brian Burnett MD Percutaneous Cholangiogram 06/24/17 0000 Signed Impressions: Service Date/Time: Saturday, June 24, 2017 20:36 - CONCLUSION: Uncomplicated percutaneous cholecystostomy as above. Lalo Wong MD Abdomen/Pelvis CT 06/24/17 0000 Signed Impressions: Service Date/Time: Saturday, June 24, 2017 18:05 - CONCLUSION: 1. Bibasilar patchy infiltrates (right worse than left) consistent with probable pneumonia. Clinical correlation is recommended. 2. Worsening pleural effusions which are moderate in size on the right and small on the left. 3. Diffuse peripheral perfusion defects involving the kidneys suggestive of decreased renal function or possible interval development of bilateral pyelonephritis. Clinical correlation is recommended. 4. Gallbladder wall thickening and vicarious excretion of contrast via the gallbladder. Clinical correlation is recommended to rule out cholecystitis. 5. Interval development of ascites within the abdomen. 6. Thickening of the wall of the ascending colon raising possibility of colitis. Clinical correlation is recommended. Brian Burnett MD Objective Remarks GENERAL: 57-year-old female currently orotracheally intubated currently on propofol 30 mcgs/kg/min. and Tenon infusion discontinued SKIN: Warm and dry. No rash. Well perfused HEAD: Atraumatic. Normocephalic. EYES: Pupils equal and round about 2 mm bilaterally and brisk. No scleral icterus. No injection or drainage. ENT: No nasal bleeding or discharge. Mucous membranes pink and moist. NECK: Trachea midline. No JVD. CARDIOVASCULAR: Irregular rhythm, rate currently 70s to 80s. S1, S2. No S4. Without murmur RESPIRATORY: Miss breath sounds in the bases bilaterally. No wheezing GASTROINTESTINAL: Abdomen soft, tender to palpation in the right upper quadrant and epigastric region. Cholecystostomy tube in place -40 cc brown output hypoactive bowel sounds are present MUSCULOSKELETAL: Extremities with trace lower extremity peripheral edema. No obvious deformities. 1+ edema right upper extremity NEUROLOGICAL: Possible corneal reflex. Positive gag and cough. Withdraws to pain bilateral lower extremities. Date of Insertion: Jun 24, 2017 Line: Central Venous Catheter Side: Right Location: Subclavian A/P Assessment and Plan Neuro/Psych: Acute encephalopathy likely toxic metabolic UDS positive for barbiturates Depression/anxiety Seizure questionable Currently on propofol drip at 30 mcg/kg/min for sedation while intubated with fentanyl drip if needed Goal of RASS -2 Daily sedation vacation Acetaminophen 650 mg by tube. every 6 hours as needed fever/pain CT brain 06/24 revealed no acute intracranial findings EEG 06/25 revealed right frontal lobe sharp activity indicative of epileptiform. Loaded with levetiracetam 1 g IV 1 on 06/26 followed by 500 mg IV twice daily. Repeat EEG 06/26 revealed continuous sharps in right frontal region Repeat EEG pending 06/28- slow waves Neurology consult for the recommendations. 06/27 MRI brain-no acute intracranial abnormality Holding paroxetine unknown dosage daily home medication CV: Atrial fibrillation with RVR currently in sinus tachycardia History of atrial fibrillation currently in A. fib with RVR Hypertension Elevated BNP Lactic acidosis resolved Severe MR Severe TR Acute diastolic heart failure Tachybradycardia syndrome EKG reveals sinus bradycardia with first-degree AV block. Admission was A. fib with RVR. Currently on amiodarone drip at 0.5 mg/min. Cardiac markers troponin 0.05 2D echocardiogram revealed EF 45-50%. Decreased LV systolic function. Bilateral atrial enlargement. Severe MR and TR. Cardiology consult by [facility] with Dr. Jeffers EPS consult secondary to tachybradycardia syndrome CT surgery consulted to evaluate severe MR- Dr. Paul following Lactate is cleared 06/26 CVP monitoring trend Diuresed 40 mg furosemide 1 on 06/27. effective 3800 cc, / Lasix 40 mg IV daily Resp: Acute respiratory insufficiency Right lower lobe infiltrate/pleural effusion PRVC 18/500/1.05/01/39 Ventilator bundle Albuterol/ipratropium aerosols every 6 hours with albuterol aerosols every 2 hours as needed for dyspnea Spontaneous breathing trials when clinically indicated 06/28 Chest x-ray - air space disease and pleural effusions 07/01 Continue CPAP trials- tolerated for 2 hours today GI: Epigastric/right upper quadrant pain Gastroesophageal reflux disease Hyperammonia Cholelithiasis on ultrasound 06/23 possibly acute cholecystitis Hypoalbuminemia CT abdomen/pelvis 06/23 revealed a 1 mm gallstone. No signs of cholecystitis. Otherwise unremarkable CT abdomen/pelvis 06/24 revealed right greater than left pleural effusions. Gallbladder wall thickening with voracious dye excretion, descending colon edema and bilateral perinephric stranding Status post cholecystostomy tube by IR 06/24- output last pm 250cc General surgery recommended continue cholecystostomy tube placement. Outpatient follow-up for cholecystectomy. Okay to initiate trickle feeds today. Currently on Nepro at 10 cc an hour. Continued at 20 cc today. Nutrition recommends Jevity 1.5 goal 50 cc an hour Repeat CT abdomen/pelvis with contrast if worsening symptomatology Previously patient has been on omeprazole 40 mg p.o. daily. Currently on pantoprazole 40 mg IV. daily for gastroesophageal reflux disease Docusate sodium/senna 1 tablet twice daily for bowel regimen Lactulose 30 cc daily for elevated ammonia. GI consulted, Dr. Naqvi - S/P colonoscopy and endoscopy 06/30, upper endoscopy revealed medium-sized ulcer first part of duodenum, multiple small erosions gastric antrum. Colon- Normal mucosa : Ferguson catheter has been placed for accurate I's and O's and critical patient Endo: Acute hypoglycemia likely secondary to sepsis resolved Sliding-scale insulin Novulin R with Accu-Cheks every 4 hours to maintain euglycemia/low regimen TSH -1.76 Renal: Acute kidney injury- resolved Negative urine eosinophils and urine electrolytes likely prerenal indices by Janet No signs of hydronephrosis on CT abdomen/pelvis 06/23. Stranding noted around bilateral kidneys 06/24. Medical renal disease versus pyelonephritis Creatinine improved Heme: Microcytic hypochromic anemia Leukocytosis Resolved DIC Thrombocytopenia We will need iron studies and Hemoccult test done during this hospitalization Self-reported negative EGD/colonoscopy in the past per prior record Transfuse 1 unit PRBCs overnight. Will give 1 FFP and 1 cryo and 10 mg of vitamin K 06/27 Continue to monitor H&H every 12 hours 07/01 therapeutic Lovenox 80 mg twice a day ID: Severe sepsis likely gallbladder source plus/minus UA Started on ampicillin/tazobactam with vancomycin day #4 Pertinent cultures 06/25 -bile -no growth 06/25 -sputum -no growth 06/24 -blood cultures 4 -no growth 06/24 -urine -p no growth Urine Legionella pneumococcal antigens no growth Influenza negative MSK: PT evaluate and treat FEN: Hypernatremia 1 L of quarter normal saline today 1. Replace electrolytes as clinically indicated per ICU electrolyte protocol Access -Right subclavian CVL day #4 placed 06/24. Continue -Right radial arterial line day #4 placed 06/24. Discontinued 3/ Prophylaxis -GI -pantoprazole -DVT -SCDs Therapuetic lovenox BID Critical Care: Level 3 followup 06/27 Discussed with Yaneth Garcia. Discussed in detail neurological condition including seizure activity on EEG, imaging being performed, medication adjustments and neurology consultation. Discussed cholecystostomy tube in follow-up with general surgery most likely as an outpatient with current medical condition improves. Physician Madeleine Crews MD Jul 01, 2017 20:49
[2017-07-01 23:55] LABS: HEMATOCRIT 25.6 % (35.0-46.0); HEMOGLOBIN 8.2 GM/DL (11.6-15.3)
[2017-07-02] VITALS (19 sets, daily range): BP systolic 122–174; BP diastolic 58–90; PULSE 86–118; RESP 17–18; TEMP 98.7–100.4; O2SAT 98–100
[2017-07-02] MEDS: ACETAMINOPHEN 650 MG/20.3 ML UDC NG PRN (00:57)
[2017-07-02] MEDS: DEXT 5%-NACL 0.45% 1000 ML INJ 1,000 ML IV SCH ×2 (00:58→22:15)
[2017-07-02] MEDS: METOPROLOL TARTRATE 5 MG/5 ML VIAL IV PUSH PRN ×2 (00:58→11:11)
[2017-07-02] MEDS: PIPERACIL-TAZO 3.375 GM PREMIX 50 ML IV SCH ×4 (00:58→19:50)
[2017-07-02] MEDS: PROPOFOL 1000 MG/100 ML INJ 100 ML IV PRN ×4 (00:58→20:03)
[2017-07-02] MEDS: RESP: ALBUTEROL 2.5 MG/IPRATROPIUM 0.5 MG NEB (SCH) NEB ×4 (01:47→21:32)
[2017-07-02] MEDS: CHLORHEXIDINE GLUCONATE 2 % 1 PACK (2 CLOTHS) TOP SCH (04:00)
[2017-07-02] MEDS: INSULIN NovoLIN REGULAR SUPPLEMENTAL SCALE SQ SCH ×6 (04:00→19:51)
[2017-07-02] MEDS: FOSPHENYTOIN SODIUM 100 MG PE/2 ML VIAL IV SCH ×3 (04:40→23:32)
[2017-07-02] MEDS: ARTIFICIAL TEARS OPTH SOLN 15 ML BTL EACH EYE SCH ×3 (04:40→19:52)
[2017-07-02] MEDS: ENOXAPARIN SODIUM 80 MG/0.8 ML SYRINGE SQ SCH ×2 (04:40→19:00)
[2017-07-02 05:27] LABS: HEMOGLOBIN 7.8 GM/DL (11.6-15.3); MEAN CELL VOLUME 70.8 FL (80.0-100.0); MEAN CORPUSCULAR HEMOGLOBIN 22.2 PG (27.0-34.0); MEAN CORPUSCULAR HGB CONC 31.3 % (32.0-36.0); PLATELET COUNT 152 TH/MM3 (150-450); RED BLOOD COUNT 3.53 MIL/MM3 (4.00-5.30); WHITE BLOOD COUNT 7.6 TH/MM3 (4.0-11.0)
[2017-07-02 05:49] LABS: BICARBONATE 28.7 MEQ/L (21.0-32.0); CALCIUM 8.6 MG/DL (8.5-10.1); CREATININE 0.76 MG/DL (0.50-1.00); MAGNESIUM 1.9 MG/DL (1.5-2.5); PHOSPHORUS 3.1 MG/DL (2.5-4.9)
[2017-07-02] MEDS: AMIODARONE 200 MG TAB PO SCH ×2 (07:42→19:52)
[2017-07-02] MEDS: FUROSEMIDE 40 MG/4 ML VIAL IV PUSH SCH (07:43)
[2017-07-02] MEDS: levETIRAcetam INJ 500 MG in SODIUM CHLORIDE 0.9% INJ 100 ML IV SCH ×2 (07:43→19:52)
[2017-07-02] MEDS: VANCOMYCIN INJ 1,750 MG in SODIUM CHLORID 0.9% 500 ML INJ 500 ML IV SCH (07:43)
[2017-07-02] MEDS: SODIUM CHLORIDE 0.9% FLUSH 10 ML FLUSH IV FLUSH SCH ×2 (07:44→19:51)
[2017-07-02] MEDS: DOCUSATE SODIUM 50 MG/SENNA 8.6 MG TAB PO SCH ×2 (07:45→19:52)
[2017-07-02] MEDS: CHLORHEXIDINE 0.12% (ORAL KIT) 15 ML CUP MT SCH ×2 (07:45→19:51)
--- NOTE | 2017-07-02 09:15 | MG ---
cc: Lalo Rueda MD EEG #[id number] TECHNIQUE: The patient is on Diprivan. INDICATIONS: Abdominal pain. MEDICATIONS: 1. Lovenox. 2. Cerebyx. 3. Keppra. DESCRIPTION OF RECORD: Some sleep activity is noted which is synchronous and symmetric. Some sleep spindles are seen. At times, a 10 Hz diffuse 50 microvolt rhythm is noted. What medication effect that is likely noted sometimes here is some attenuation of the background for 2 seconds in between the regular brain activity, not really a burst suppression pattern, but may be due to medication suppression. Hyperventilation not performed. Photic stimulation is performed without significant posterior driving. IMPRESSION: Generally unremarkable recording. Some sleep activity. Some normal alpha rhythms are noted. No focal abnormality is noted. No seizure activity was seen. There is what appears to be some medication effect with some suppression of the background intermittently at times as noted above. MD YANNA Colon/NELL , 08:51 AM , 09:14 AM
--- NOTE | 2017-07-02 16:46 | HHI.CCPN ---
Subjective Remarks/Hospital Course 57-year-old female. Date of admission 06/23/2017. Date of consultation 2017. Past medical history includes Patient originally presented to [facility] ED in atrial fibrillation with rapid ventricular response. Patient was initially started on a diltiazem drip and then was switched over to metoprolol tartrate 50 mg every 8 hours. After conversion, patient became bradycardic. CT abdomen/pelvis revealed a 1 mm gallstone without signs of cholecystitis. Otherwise unremarkable. The patient became more somnolent on the floor and bradycardic with heart rates as low as 42. EKG revealed sinus bradycardia with a first-degree AV block. Patient was arousable and with good pain in 1-2 word responses but fell asleep immediately. On examination patient did have pain especially in her right upper quadrant. CBC revealed hemoglobin 8.4. Ammonia level 35. BNP of 341. Remainder of laboratories are currently pending. Chest x-ray revealed right lower lobe infiltrate versus effusion. Patient did receive 60 mg total of furosemide within the past 24 hours. 3: Afebrile. Status post percutaneous cholecystostomy tube yesterday with aggressive crystalloid resuscitation. Currently resting in bed in no acute distress. Not on vasopressors. 32: Afebrile. A. fib with RVR overnight started on amiodarone drip. Digoxin 0.25 mg and diltiazem 10 mg given prior to initiation of amiodarone. Remains sedated on the ventilator. Possible seizure activity on EEG. Neurology is been counseled.. EPS cardiology and cardiothoracic surgery also been consulted for tachybradycardia syndrome and severe MR. Dr. Sterling/neurosurgeon is clear to trickle feeds today Subjective 3/3: Afebrile. EEG revealed continuous sharp spikes involving right frontal central region. Remains on levetiracetam at 500 mg every 12 hours. Noted possible switch to fosphenytoin per EEG report. Currently on propofol drip at 30 mcg/kg/min. Withdraws bilateral lower exams. Does not withdraw upper extremities currently. MRI brain currently pending. Tolerating trickle feeds at 10 cc an hour. 3: Repeat EEG pending today. Fosphenytoin added to medication regimen yesterday.No change in neurological assessment. Trickle feeds increased to 20 cc/hour with minimal residuals. 06/29: EEG repeated only showed slow waves possibly medication contributory. Patient previously on anticoagulation prior to admission and her to A. fib RVR, but due to concern for indeterminate source of anemia, GI consulted for recommendations and evaluation of risks/ benefits to initiate anticoagulation therapy. Patient continued to have pleural effusions Lasix IV dose 40 mg given. 06/30: Tolerated CPAP trials 2 hours, continues to be nonresponsive. Patient underwent EGD and colonoscopy colonoscopy was within normal limits. EGD revealed small erosions in the first part of the duodenum and a medium-sized ulcer. Recommended per GI to initiate/ resume anticoagulant therapy. Plan for every 12 hours H&H. 07/01: Patient remained on CPAP trials for approximately 2 hours. Patient remains encephalopathic off sedation. Noted hemoglobin drop will continue to closely monitor as therapeutic anticoagulation was initiated yesterday. 07/02: Hemoglobin stable. Patient continues on CPAP with light sedation. With sedation vacation the patient still is not responding to commands, not tracking. EEG shows no epileptiform activity. Patient will require tracheostomy and PEG placement consideration in the near future .Palliative care has been consulted. Objective Vital Signs Date Time Temp Pulse Resp B/P (MAP) Pulse Ox O2 Delivery O2 Flow Rate FiO2 07/02/17 15:44 99 30 07/02/17 14:00 107 07/02/17 12:00 98.7 18 151/86 (107) Intake and Output 07/02/17 07/02/17 07/03/17 08:00 16:00 00:00 Intake Total 889 ml Output Total 670 ml Balance 219 ml Result Diagram: 07/02/17 0430 07/02/17 0430 Imaging Last Impressions Chest X-Ray 07/01/17 0600 Signed Impressions: Service Date/Time: Saturday, July 01, 2017 03:51 - CONCLUSION: Stable chest x-ray with moderate sized bilateral opacities likely representing pleural effusions with associated volume loss and/or airspace consolidation. Stanislaw Galvez MD Brain MRI 06/27/17 0000 Signed Impressions: Service Date/Time: Tuesday, June 27, 2017 10:00 - CONCLUSION: 1. No acute intracranial abnormality. 2. Mild chronic small vessel ischemic change. Floyd Tiwari Jr., MD Head CT 06/24/17 1645 Signed Impressions: Service Date/Time: Saturday, June 24, 2017 18:00 - CONCLUSION: No acute disease. Brian Burnett MD Percutaneous Cholangiogram 06/24/17 0000 Signed Impressions: Service Date/Time: Saturday, June 24, 2017 20:36 - CONCLUSION: Uncomplicated percutaneous cholecystostomy as above. Lalo Wong MD Abdomen/Pelvis CT 06/24/17 0000 Signed Impressions: Service Date/Time: Saturday, June 24, 2017 18:05 - CONCLUSION: 1. Bibasilar patchy infiltrates (right worse than left) consistent with probable pneumonia. Clinical correlation is recommended. 2. Worsening pleural effusions which are moderate in size on the right and small on the left. 3. Diffuse peripheral perfusion defects involving the kidneys suggestive of decreased renal function or possible interval development of bilateral pyelonephritis. Clinical correlation is recommended. 4. Gallbladder wall thickening and vicarious excretion of contrast via the gallbladder. Clinical correlation is recommended to rule out cholecystitis. 5. Interval development of ascites within the abdomen. 6. Thickening of the wall of the ascending colon raising possibility of colitis. Clinical correlation is recommended. Brian Burnett MD Last Impressions Chest X-Ray 06/30/17 0600 Signed Impressions: Service Date/Time: Friday, June 30, 2017 05:14 - CONCLUSION: 1. Persistent moderate-sized bibasilar opacities representing pleural effusions with associated volume loss and/or airspace consolidation. 2. There are new more focal patchy airspace opacities in the left upper lung zone. Stanislaw Galvez MD Brain MRI 06/27/17 0000 Signed Impressions: Service Date/Time: Tuesday, June 27, 2017 10:00 - CONCLUSION: 1. No acute intracranial abnormality. 2. Mild chronic small vessel ischemic change. Floyd Tiwari Jr., MD Head CT 06/24/17 1645 Signed Impressions: Service Date/Time: Saturday, June 24, 2017 18:00 - CONCLUSION: No acute disease. Brian Burnett MD Percutaneous Cholangiogram 06/24/17 0000 Signed Impressions: Service Date/Time: Saturday, June 24, 2017 20:36 - CONCLUSION: Uncomplicated percutaneous cholecystostomy as above. Lalo Wong MD Abdomen/Pelvis CT 06/24/17 0000 Signed Impressions: Service Date/Time: Saturday, June 24, 2017 18:05 - CONCLUSION: 1. Bibasilar patchy infiltrates (right worse than left) consistent with probable pneumonia. Clinical correlation is recommended. 2. Worsening pleural effusions which are moderate in size on the right and small on the left. 3. Diffuse peripheral perfusion defects involving the kidneys suggestive of decreased renal function or possible interval development of bilateral pyelonephritis. Clinical correlation is recommended. 4. Gallbladder wall thickening and vicarious excretion of contrast via the gallbladder. Clinical correlation is recommended to rule out cholecystitis. 5. Interval development of ascites within the abdomen. 6. Thickening of the wall of the ascending colon raising possibility of colitis. Clinical correlation is recommended. Brian Burnett MD Last Impressions Chest X-Ray 06/29/17 0600 Signed Impressions: Service Date/Time: Thursday, June 29, 2017 04:28 - CONCLUSION: Stable chest x-ray with bibasilar opacities representing pleural effusions with associated volume loss and airspace consolidation. The overall pattern could be secondary to pulmonary edema. Stanislaw Galvez MD Brain MRI 06/27/17 0000 Signed Impressions: Service Date/Time: Tuesday, June 27, 2017 10:00 - CONCLUSION: 1. No acute intracranial abnormality. 2. Mild chronic small vessel ischemic change. Floyd Tiwari Jr., MD Head CT 06/24/17 1645 Signed Impressions: Service Date/Time: Saturday, June 24, 2017 18:00 - CONCLUSION: No acute disease. Brian Burnett MD Percutaneous Cholangiogram 06/24/17 0000 Signed Impressions: Service Date/Time: Saturday, June 24, 2017 20:36 - CONCLUSION: Uncomplicated percutaneous cholecystostomy as above. Lalo Wong MD Abdomen/Pelvis CT 06/24/17 0000 Signed Impressions: Service Date/Time: Saturday, June 24, 2017 18:05 - CONCLUSION: 1. Bibasilar patchy infiltrates (right worse than left) consistent with probable pneumonia. Clinical correlation is recommended. 2. Worsening pleural effusions which are moderate in size on the right and small on the left. 3. Diffuse peripheral perfusion defects involving the kidneys suggestive of decreased renal function or possible interval development of bilateral pyelonephritis. Clinical correlation is recommended. 4. Gallbladder wall thickening and vicarious excretion of contrast via the gallbladder. Clinical correlation is recommended to rule out cholecystitis. 5. Interval development of ascites within the abdomen. 6. Thickening of the wall of the ascending colon raising possibility of colitis. Clinical correlation is recommended. Brian Burnett MD Last Impressions Chest X-Ray 06/28/17 0600 Signed Impressions: Service Date/Time: Wednesday, June 28, 2017 04:18 - CONCLUSION: Persistent left lower lobe consolidation and hazy opacities in the right mid/lower lung. Floyd Magallanes MD Brain MRI 06/27/17 0000 Signed Impressions: Service Date/Time: Tuesday, June 27, 2017 10:00 - CONCLUSION: 1. No acute intracranial abnormality. 2. Mild chronic small vessel ischemic change. Floyd Tiwari Jr., MD Head CT 06/24/17 164 Signed Impressions: Service Date/Time: Saturday, June 24, 2017 18:00 - CONCLUSION: No acute disease. Brian Burnett MD Percutaneous Cholangiogram 06/24/17 0000 Signed Impressions: Service Date/Time: Saturday, June 24, 2017 20:36 - CONCLUSION: Uncomplicated percutaneous cholecystostomy as above. Lalo Wong MD Abdomen/Pelvis CT 06/24/17 0000 Signed Impressions: Service Date/Time: Saturday, June 24, 2017 18:05 - CONCLUSION: 1. Bibasilar patchy infiltrates (right worse than left) consistent with probable pneumonia. Clinical correlation is recommended. 2. Worsening pleural effusions which are moderate in size on the right and small on the left. 3. Diffuse peripheral perfusion defects involving the kidneys suggestive of decreased renal function or possible interval development of bilateral pyelonephritis. Clinical correlation is recommended. 4. Gallbladder wall thickening and vicarious excretion of contrast via the gallbladder. Clinical correlation is recommended to rule out cholecystitis. 5. Interval development of ascites within the abdomen. 6. Thickening of the wall of the ascending colon raising possibility of colitis. Clinical correlation is recommended. Brian Burnett MD Last Impressions Chest X-Ray 06/26/17 0600 Signed Impressions: Service Date/Time: Monday, June 26, 2017 05:19 - CONCLUSION: Persistent consolidation in the lower lungs. Location of the gastric tube cannot be determined on this exam. Technical limitations. Floyd Magallanes MD Head CT 06/24/17 1645 Signed Impressions: Service Date/Time: Saturday, June 24, 2017 18:00 - CONCLUSION: No acute disease. Brian Burnett MD Percutaneous Cholangiogram 06/24/17 0000 Signed Impressions: Service Date/Time: Saturday, June 24, 2017 20:36 - CONCLUSION: Uncomplicated percutaneous cholecystostomy as above. Lalo Wong MD Abdomen/Pelvis CT 06/24/17 0000 Signed Impressions: Service Date/Time: Saturday, June 24, 2017 18:05 - CONCLUSION: 1. Bibasilar patchy infiltrates (right worse than left) consistent with probable pneumonia. Clinical correlation is recommended. 2. Worsening pleural effusions which are moderate in size on the right and small on the left. 3. Diffuse peripheral perfusion defects involving the kidneys suggestive of decreased renal function or possible interval development of bilateral pyelonephritis. Clinical correlation is recommended. 4. Gallbladder wall thickening and vicarious excretion of contrast via the gallbladder. Clinical correlation is recommended to rule out cholecystitis. 5. Interval development of ascites within the abdomen. 6. Thickening of the wall of the ascending colon raising possibility of colitis. Clinical correlation is recommended. Brian Burnett MD Objective Remarks GENERAL: 57-year-old female currently orotracheally intubated currently on propofol 30 mcgs/kg/min. SKIN: Warm and dry. No rash. Well perfused HEAD: Atraumatic. Normocephalic. EYES: Pupils equal and round about 2 mm bilaterally and brisk. No scleral icterus. No injection or drainage. ENT: No nasal bleeding or discharge. Mucous membranes pink and moist. NECK: Trachea midline. No JVD. CARDIOVASCULAR: Irregular rhythm, rate currently 70s to 80s. S1, S2. No S4. Without murmur RESPIRATORY: Miss breath sounds in the bases bilaterally. No wheezing GASTROINTESTINAL: Abdomen soft, tender to palpation in the right upper quadrant and epigastric region. Cholecystostomy tube draining. MUSCULOSKELETAL: Extremities with trace lower extremity peripheral edema. No obvious deformities. 1+ edema right upper extremity NEUROLOGICAL: Positive corneal reflex. Positive gag and cough. Withdraws to pain bilateral lower extremities. Date of Insertion: Jun 24, 2017 Line: Central Venous Catheter Side: Right Location: Subclavian A/P Assessment and Plan Neuro/Psych: Acute encephalopathy likely toxic metabolic UDS positive for barbiturates Depression/anxiety Seizure questionable Currently on propofol drip at 30 mcg/kg/min for sedation Goal of RASS -2 Daily sedation vacation Acetaminophen 650 mg by tube. every 6 hours as needed fever/pain CT brain 06/24 revealed no acute intracranial findings EEG 06/25 revealed right frontal lobe sharp activity indicative of epileptiform. Loaded with levetiracetam 1 g IV 1 on 06/26 followed by 500 mg IV twice daily. Repeat EEG 06/26 revealed continuous sharps in right frontal region Repeat EEG pending 06/28- no epileptiform activity Neurology- Dr. Shannon following peripherally 06/27 MRI brain-no acute intracranial abnormality Holding paroxetine unknown dosage daily home medication CV: Atrial fibrillation with RVR currently in sinus tachycardia History of atrial fibrillation currently in A. fib with RVR Hypertension Elevated BNP Lactic acidosis resolved Severe MR Severe TR Acute diastolic heart failure Tachybradycardia syndrome EKG reveals sinus bradycardia with first-degree AV block. Admission was A. fib with RVR. Amiodarone 200 BID Cardiac markers troponin 0.05 2D echocardiogram revealed EF 45-50%. Decreased LV systolic function. Bilateral atrial enlargement. Severe MR and TR. Cardiology consult by [facility] with Dr. Jeffers EPS consult secondary to tachybradycardia syndrome CT surgery consulted to evaluate severe MR- Dr. Paul following Lactate is cleared 06/26 CVP monitoring trend 06/30 Lasix 40 mg IV daily Resp: Acute respiratory insufficiency Right lower lobe infiltrate/pleural effusion PRVC 18/500/1.05/01/39 Ventilator bundle Albuterol/ipratropium aerosols every 6 hours with albuterol aerosols every 2 hours as needed for dyspnea Spontaneous breathing trials when clinically indicated 06/28 Chest x-ray - air space disease and pleural effusions 07/01 Continue CPAP trials ETT day 8-possible consideration for tracheostomy in the near future, will discuss with family GI: Epigastric/right upper quadrant pain Gastroesophageal reflux disease Hyperammonia Cholelithiasis on ultrasound 06/23 possibly acute cholecystitis Hypoalbuminemia CT abdomen/pelvis 06/23 revealed a 1 mm gallstone. No signs of cholecystitis. Otherwise unremarkable CT abdomen/pelvis 06/24 revealed right greater than left pleural effusions. Gallbladder wall thickening with voracious dye excretion, descending colon edema and bilateral perinephric stranding Status post cholecystostomy tube by IR 06/24- output last pm 250cc General surgery recommended continue cholecystostomy tube placement. Outpatient follow-up for cholecystectomy. Okay to initiate trickle feeds today. Currently on Nepro at 10 cc an hour. Continued at 20 cc today. Nutrition recommends Jevity 1.5 goal 50 cc an hour Repeat CT abdomen/pelvis with contrast if worsening symptomatology Previously patient has been on omeprazole 40 mg p.o. daily. Currently on pantoprazole 40 mg IV. daily for gastroesophageal reflux disease Docusate sodium/senna 1 tablet twice daily for bowel regimen Lactulose 30 cc daily for elevated ammonia. F/U ammonia level in a.m. GI consulted, Dr. aNqvi - S/P colonoscopy and endoscopy 06/30, upper endoscopy revealed medium-sized ulcer first part of duodenum, multiple small erosions gastric antrum. Colon- Normal mucosa : Ferguson catheter has been placed for accurate I's and O's and critical patient Endo: Acute hypoglycemia likely secondary to sepsis resolved Sliding-scale insulin Novulin R with Accu-Cheks every 4 hours to maintain euglycemia/low regimen TSH -1.76 Renal: Acute kidney injury- resolved Negative urine eosinophils and urine electrolytes likely prerenal indices by Janet No signs of hydronephrosis on CT abdomen/pelvis 06/23. Stranding noted around bilateral kidneys 06/24. Medical renal disease versus pyelonephritis Creatinine improved Heme: Microcytic hypochromic anemia Leukocytosis Resolved DIC Thrombocytopenia We will need iron studies and Hemoccult test done during this hospitalization Self-reported negative EGD/colonoscopy in the past per prior record Transfuse 1 unit PRBCs overnight. Will give 1 FFP and 1 cryo and 10 mg of vitamin K 06/27 Continue to monitor H&H every 12 hours- HGB stable 7.8 07/01 therapeutic Lovenox 80 mg twice a day ID: Severe sepsis likely gallbladder source plus/minus UA Started on ampicillin/tazobactam with vancomycin day #5 Pertinent cultures 3/ -bile -no growth / -sputum -no growth 06/24 -blood cultures 4 -no growth 06/24 -urine -p no growth Urine Legionella pneumococcal antigens no growth Influenza negative MSK: PT evaluate and treat FEN: Hypernatremia 1 L of quarter normal saline today 1. Replace electrolytes as clinically indicated per ICU electrolyte protocol Access -Right subclavian CVL day #8 placed 06/24. Continue -Right radial arterial line day #4 placed 06/24. Discontinued 3/3 Prophylaxis -GI -pantoprazole -DVT -SCDs Therapuetic lovenox BID Critical Care: Level 3 followup 3/3 Discussed with Yaneth Garcia. Discussed in detail neurological condition including seizure activity on EEG, imaging being performed, medication adjustments and neurology consultation. Discussed cholecystostomy tube in follow-up with general surgery most likely as an outpatient with current medical condition improves. Discussed with [employer] CLERK at bedside (Norberto) Physician Madeleine Crews MD Jul 02, 2017 16:46
[2017-07-02] MEDS: PANTOPRAZOLE SODIUM 40 MG VIAL IV PUSH SCH (19:50)
[2017-07-03] VITALS (23 sets, daily range): BP systolic 116–180; BP diastolic 64–107; PULSE 97–123; RESP 15–36; TEMP 98.9–99.7; O2SAT 97–100
[2017-07-03] MEDS: PROPOFOL 1000 MG/100 ML INJ 100 ML IV PRN ×2 (00:48→04:57)
[2017-07-03] MEDS: PIPERACIL-TAZO 3.375 GM PREMIX 50 ML IV SCH ×4 (01:55→20:46)
[2017-07-03] MEDS: RESP: ALBUTEROL 2.5 MG/IPRATROPIUM 0.5 MG NEB (SCH) NEB ×4 (03:37→20:40)
[2017-07-03 03:44] LABS: AUTOMATED NEUTROPHIL # 7.3 TH/MM3 (1.8-7.7); BASOPHIL # 0.1 TH/MM3 (0-0.2); BASOPHIL % 0.8 % (0.0-2.0); EOSINOPHIL # 0.6 TH/MM3 (0-0.4); EOSINOPHIL % 5.9 % (0.0-4.0); HEMATOCRIT 26.8 % (35.0-46.0); HEMOGLOBIN 8.3 GM/DL (11.6-15.3); LYMPH % 10.3 % (9.0-44.0); MEAN CELL VOLUME 70.4 FL (80.0-100.0); MEAN CORPUSCULAR HEMOGLOBIN 21.9 PG (27.0-34.0); MEAN CORPUSCULAR HGB CONC 31.1 % (32.0-36.0); MEAN PLATELET VOLUME 8.3 FL (7.0-11.0); MONO % 7.6 % (0.0-8.0); MONOCYTE # 0.7 TH/MM3 (0-0.9); NEUT % 75.4 % (16.0-70.0); PLATELET COUNT 155 TH/MM3 (150-450); RED BLOOD COUNT 3.81 MIL/MM3 (4.00-5.30); RED CELL DISTRIBUTION WIDTH 22.3 % (11.6-17.2); WHITE BLOOD COUNT 9.7 TH/MM3 (4.0-11.0)
[2017-07-03] MEDS: INSULIN NovoLIN REGULAR SUPPLEMENTAL SCALE SQ SCH ×6 (04:00→20:47)
[2017-07-03] MEDS: CHLORHEXIDINE GLUCONATE 2 % 1 PACK (2 CLOTHS) TOP SCH (04:00)
[2017-07-03 04:06] LABS: PHOSPHORUS 3.6 MG/DL (2.5-4.9)
[2017-07-03] MEDS: FOSPHENYTOIN SODIUM 100 MG PE/2 ML VIAL IV SCH ×3 (04:57→20:46)
[2017-07-03] MEDS: ARTIFICIAL TEARS OPTH SOLN 15 ML BTL EACH EYE SCH ×3 (04:57→20:46)
[2017-07-03] MEDS: ENOXAPARIN SODIUM 80 MG/0.8 ML SYRINGE SQ SCH ×2 (05:56→18:42)
--- NOTE | 2017-07-03 06:18 | RADRPT ---
EXAM DATE/TIME: 07/03/2017 05:06 [place] COMPARISON: CHEST SINGLE AP, July 01, 2017, 3:51. INDICATIONS : Shortness of breath. MEDICAL HISTORY : Anemia SURGICAL HISTORY : Tubal ligation. ENCOUNTER: Subsequent ACUITY: 2 weeks PAIN SCORE: Non-responsive. LOCATION: Bilateral chest FINDINGS: Bibasilar consolidation and small effusions persist but have decreased considerably in the internal, now mild/small. No pneumothorax. Heart size stable, within normal limits. Endotracheal tube tip is approximately 3 cm above the ricky. Nasogastric tube courses into the stoma ch. There is a right subclavian central venous catheter with tip in the superior vena cava. CONCLUSION: Decreasing bibasilar consolidation and very small effusions. Stanislaw Ryan MD on July 03, 2017 at 6:16 Board Certified Radiologist. This report was verified electronically.
[2017-07-03] MEDS: levETIRAcetam INJ 500 MG in SODIUM CHLORIDE 0.9% INJ 100 ML IV SCH ×2 (08:08→20:46)
[2017-07-03] MEDS: DOCUSATE SODIUM 50 MG/SENNA 8.6 MG TAB PO SCH ×2 (08:08→20:47)
[2017-07-03] MEDS: AMIODARONE 200 MG TAB PO SCH ×2 (08:08→20:46)
[2017-07-03] MEDS: FUROSEMIDE 40 MG/4 ML VIAL IV PUSH SCH (08:09)
[2017-07-03] MEDS: SODIUM CHLORIDE 0.9% FLUSH 10 ML FLUSH IV FLUSH SCH ×2 (08:09→20:47)
[2017-07-03] MEDS: CHLORHEXIDINE 0.12% (ORAL KIT) 15 ML CUP MT SCH ×2 (08:09→20:48)
[2017-07-03] MEDS: LABETALOL HCL 100 MG/20 ML VIAL IV PUSH PRN (08:32)
[2017-07-03] MEDS: METOPROLOL TARTRATE 5 MG/5 ML VIAL IV PUSH PRN ×2 (09:36→18:42)
[2017-07-03] MEDS: VANCOMYCIN INJ 1,750 MG in SODIUM CHLORID 0.9% 500 ML INJ 500 ML IV SCH (09:37)
--- NOTE | 2017-07-03 10:41 | HHI.CCPN ---
Subjective Remarks/Hospital Course 57-year-old female. Date of admission 06/23/2017. Date of consultation 2017. Past medical history includes Patient originally presented to [facility] ED in atrial fibrillation with rapid ventricular response. Patient was initially started on a diltiazem drip and then was switched over to metoprolol tartrate 50 mg every 8 hours. After conversion, patient became bradycardic. CT abdomen/pelvis revealed a 1 mm gallstone without signs of cholecystitis. Otherwise unremarkable. The patient became more somnolent on the floor and bradycardic with heart rates as low as 42. EKG revealed sinus bradycardia with a first-degree AV block. Patient was arousable and with good pain in 1-2 word responses but fell asleep immediately. On examination patient did have pain especially in her right upper quadrant. CBC revealed hemoglobin 8.4. Ammonia level 35. BNP of 341. Remainder of laboratories are currently pending. Chest x-ray revealed right lower lobe infiltrate versus effusion. Patient did receive 60 mg total of furosemide within the past 24 hours. 3: Afebrile. Status post percutaneous cholecystostomy tube yesterday with aggressive crystalloid resuscitation. Currently resting in bed in no acute distress. Not on vasopressors. 32: Afebrile. A. fib with RVR overnight started on amiodarone drip. Digoxin 0.25 mg and diltiazem 10 mg given prior to initiation of amiodarone. Remains sedated on the ventilator. Possible seizure activity on EEG. Neurology is been counseled.. EPS cardiology and cardiothoracic surgery also been consulted for tachybradycardia syndrome and severe MR. Dr. Sterling/neurosurgeon is clear to trickle feeds today Subjective 3/3: Afebrile. EEG revealed continuous sharp spikes involving right frontal central region. Remains on levetiracetam at 500 mg every 12 hours. Noted possible switch to fosphenytoin per EEG report. Currently on propofol drip at 30 mcg/kg/min. Withdraws bilateral lower exams. Does not withdraw upper extremities currently. MRI brain currently pending. Tolerating trickle feeds at 10 cc an hour. 3: Repeat EEG pending today. Fosphenytoin added to medication regimen yesterday.No change in neurological assessment. Trickle feeds increased to 20 cc/hour with minimal residuals. 06/29: EEG repeated only showed slow waves possibly medication contributory. Patient previously on anticoagulation prior to admission and her to A. fib RVR, but due to concern for indeterminate source of anemia, GI consulted for recommendations and evaluation of risks/ benefits to initiate anticoagulation therapy. Patient continued to have pleural effusions Lasix IV dose 40 mg given. 06/30: Tolerated CPAP trials 2 hours, continues to be nonresponsive. Patient underwent EGD and colonoscopy colonoscopy was within normal limits. EGD revealed small erosions in the first part of the duodenum and a medium-sized ulcer. Recommended per GI to initiate/ resume anticoagulant therapy. Plan for every 12 hours H&H. 07/01: Patient remained on CPAP trials for approximately 2 hours. Patient remains encephalopathic off sedation. Noted hemoglobin drop will continue to closely monitor as therapeutic anticoagulation was initiated yesterday. 07/02: Hemoglobin stable. Patient continues on CPAP with light sedation. With sedation vacation the patient still is not responding to commands, not tracking. EEG shows no epileptiform activity. Patient will require tracheostomy and PEG placement consideration in the near future .Palliative care has been consulted. 07/03: Afebrile. Sedation has been completely discontinued, patient's opens eyes spontaneously movement of lower extremities to pain,but not on command. Patient continues on CPAP for greater than 24 hours. Plan discussion of to define goals of care with family per palliative care team. ET T day . Objective Vital Signs Date Time Temp Pulse Resp B/P (MAP) Pulse Ox O2 Delivery O2 Flow Rate FiO2 07/03/17 07:49 100 30 07/03/17 06:00 112 07/03/17 04:00 98.9 16 161/72 (101) Intake and Output 07/03/17 07/03/17 07/04/17 08:00 16:00 00:00 Intake Total 1094 ml 65 ml Output Total 530 ml Balance 564 ml 65 ml Result Diagram: 07/03/17 0305 07/02/17 0430 Other Results Laboratory Tests Test 07/03/17 05:30 Blood Gas Puncture Site RT BRACHIAL Blood Gas Patient Temperature 98.6 Blood Gas HCO3 26 mmol/L (22-26) Blood Gas Base Excess 3.0 mmol/L (-2-2) Blood Gas Oxygen Saturation 94 % (90-100) Arterial Blood pH 7.50 (7.380-7.420) Arterial Blood Partial Pressure CO2 33 mmHg (38-42) Arterial Blood Partial Pressure O2 84 mmHg (61-120) Arterial Blood Oxygen Content 10.7 Vol % (12.0-20.0) Arterial Blood Carboxyhemoglobin 1.9 % (0-4) Arterial Blood Methemoglobin 1.3 % (0-2) Blood Gas Hemoglobin 8.1 G/DL (12.0-16.0) Oxygen Delivery Device VENTILATOR Blood Gas Ventilator Setting CPAP 5PEEP/12PS Blood Gas Inspired Oxygen 30 % Imaging Last Impressions Chest X-Ray 07/03/17 06 Signed Impressions: Service Date/Time: Monday, July 03, 2017 05:06 - CONCLUSION: Decreasing bibasilar consolidation and very small effusions. Stanislaw Ryan MD Brain MRI 06/27/17 0000 Signed Impressions: Service Date/Time: Tuesday, June 27, 2017 10:00 - CONCLUSION: 1. No acute intracranial abnormality. 2. Mild chronic small vessel ischemic change. Floyd Tiwari Jr., MD Head CT 06/24/17 1645 Signed Impressions: Service Date/Time: Saturday, June 24, 2017 18:00 - CONCLUSION: No acute disease. Brian Burnett MD Percutaneous Cholangiogram 06/24/17 0000 Signed Impressions: Service Date/Time: Saturday, June 24, 2017 20:36 - CONCLUSION: Uncomplicated percutaneous cholecystostomy as above. Lalo Wong MD Abdomen/Pelvis CT 06/24/17 0000 Signed Impressions: Service Date/Time: Saturday, June 24, 2017 18:05 - CONCLUSION: 1. Bibasilar patchy infiltrates (right worse than left) consistent with probable pneumonia. Clinical correlation is recommended. 2. Worsening pleural effusions which are moderate in size on the right and small on the left. 3. Diffuse peripheral perfusion defects involving the kidneys suggestive of decreased renal function or possible interval development of bilateral pyelonephritis. Clinical correlation is recommended. 4. Gallbladder wall thickening and vicarious excretion of contrast via the gallbladder. Clinical correlation is recommended to rule out cholecystitis. 5. Interval development of ascites within the abdomen. 6. Thickening of the wall of the ascending colon raising possibility of colitis. Clinical correlation is recommended. Brian Burnett MD Last Impressions Chest X-Ray 07/01/17 06 Signed Impressions: Service Date/Time: Saturday, July 01, 2017 03:51 - CONCLUSION: Stable chest x-ray with moderate sized bilateral opacities likely representing pleural effusions with associated volume loss and/or airspace consolidation. Stanislaw Galvez MD Brain MRI 06/27/17 0000 Signed Impressions: Service Date/Time: Tuesday, June 27, 2017 10:00 - CONCLUSION: 1. No acute intracranial abnormality. 2. Mild chronic small vessel ischemic change. Floyd Tiwari Jr., MD Head CT 06/24/17 1645 Signed Impressions: Service Date/Time: Saturday, June 24, 2017 18:00 - CONCLUSION: No acute disease. Brian Burnett MD Percutaneous Cholangiogram 06/24/17 Signed Impressions: Service Date/Time: Saturday, June 24, 2017 20:36 - CONCLUSION: Uncomplicated percutaneous cholecystostomy as above. Lalo Wong MD Abdomen/Pelvis CT 06/24/17 0000 Signed Impressions: Service Date/Time: Saturday, June 24, 2017 18:05 - CONCLUSION: 1. Bibasilar patchy infiltrates (right worse than left) consistent with probable pneumonia. Clinical correlation is recommended. 2. Worsening pleural effusions which are moderate in size on the right and small on the left. 3. Diffuse peripheral perfusion defects involving the kidneys suggestive of decreased renal function or possible interval development of bilateral pyelonephritis. Clinical correlation is recommended. 4. Gallbladder wall thickening and vicarious excretion of contrast via the gallbladder. Clinical correlation is recommended to rule out cholecystitis. 5. Interval development of ascites within the abdomen. 6. Thickening of the wall of the ascending colon raising possibility of colitis. Clinical correlation is recommended. Brian Burnett MD Last Impressions Chest X-Ray 06/30/17 0600 Signed Impressions: Service Date/Time: Friday, June 30, 2017 05:14 - CONCLUSION: 1. Persistent moderate-sized bibasilar opacities representing pleural effusions with associated volume loss and/or airspace consolidation. 2. There are new more focal patchy airspace opacities in the left upper lung zone. Stanislaw Galvez MD Brain MRI 06/27/17 0000 Signed Impressions: Service Date/Time: Tuesday, June 27, 2017 10:00 - CONCLUSION: 1. No acute intracranial abnormality. 2. Mild chronic small vessel ischemic change. Floyd Tiwari Jr., MD Head CT 06/24/17 1645 Signed Impressions: Service Date/Time: Saturday, June 24, 2017 18:00 - CONCLUSION: No acute disease. Brian Burnett MD Percutaneous Cholangiogram 06/24/17 0000 Signed Impressions: Service Date/Time: Saturday, June 24, 2017 20:36 - CONCLUSION: Uncomplicated percutaneous cholecystostomy as above. Lalo Wong MD Abdomen/Pelvis CT 06/24/17 0000 Signed Impressions: Service Date/Time: Saturday, June 24, 2017 18:05 - CONCLUSION: 1. Bibasilar patchy infiltrates (right worse than left) consistent with probable pneumonia. Clinical correlation is recommended. 2. Worsening pleural effusions which are moderate in size on the right and small on the left. 3. Diffuse peripheral perfusion defects involving the kidneys suggestive of decreased renal function or possible interval development of bilateral pyelonephritis. Clinical correlation is recommended. 4. Gallbladder wall thickening and vicarious excretion of contrast via the gallbladder. Clinical correlation is recommended to rule out cholecystitis. 5. Interval development of ascites within the abdomen. 6. Thickening of the wall of the ascending colon raising possibility of colitis. Clinical correlation is recommended. Brian Burnett MD Last Impressions Chest X-Ray 06/29/17 0600 Signed Impressions: Service Date/Time: Thursday, June 29, 2017 04:28 - CONCLUSION: Stable chest x-ray with bibasilar opacities representing pleural effusions with associated volume loss and airspace consolidation. The overall pattern could be secondary to pulmonary edema. Stanislaw Galvez MD Brain MRI 06/27/17 0000 Signed Impressions: Service Date/Time: Tuesday, June 27, 2017 10:00 - CONCLUSION: 1. No acute intracranial abnormality. 2. Mild chronic small vessel ischemic change. Floyd Tiwari Jr., MD Head CT 06/24/17 1645 Signed Impressions: Service Date/Time: Saturday, June 24, 2017 18:00 - CONCLUSION: No acute disease. Brian Burnett MD Percutaneous Cholangiogram 06/24/17 0000 Signed Impressions: Service Date/Time: Saturday, June 24, 2017 20:36 - CONCLUSION: Uncomplicated percutaneous cholecystostomy as above. Lalo Wong MD Abdomen/Pelvis CT 06/24/17 0000 Signed Impressions: Service Date/Time: Saturday, June 24, 2017 18:05 - CONCLUSION: 1. Bibasilar patchy infiltrates (right worse than left) consistent with probable pneumonia. Clinical correlation is recommended. 2. Worsening pleural effusions which are moderate in size on the right and small on the left. 3. Diffuse peripheral perfusion defects involving the kidneys suggestive of decreased renal function or possible interval development of bilateral pyelonephritis. Clinical correlation is recommended. 4. Gallbladder wall thickening and vicarious excretion of contrast via the gallbladder. Clinical correlation is recommended to rule out cholecystitis. 5. Interval development of ascites within the abdomen. 6. Thickening of the wall of the ascending colon raising possibility of colitis. Clinical correlation is recommended. Brian Burnett MD Last Impressions Chest X-Ray 06/28/17 0600 Signed Impressions: Service Date/Time: Wednesday, June 28, 2017 04:18 - CONCLUSION: Persistent left lower lobe consolidation and hazy opacities in the right mid/lower lung. Floyd Magallanes MD Brain MRI 06/27/17 0000 Signed Impressions: Service Date/Time: Tuesday, June 27, 2017 10:00 - CONCLUSION: 1. No acute intracranial abnormality. 2. Mild chronic small vessel ischemic change. Floyd Tiwari Jr., MD Head CT 06/24/17 1645 Signed Impressions: Service Date/Time: Saturday, June 24, 2017 18:00 - CONCLUSION: No acute disease. Brian Burnett MD Percutaneous Cholangiogram 06/24/17 0000 Signed Impressions: Service Date/Time: Saturday, June 24, 2017 20:36 - CONCLUSION: Uncomplicated percutaneous cholecystostomy as above. Lalo Wong MD Abdomen/Pelvis CT 06/24/17 0000 Signed Impressions: Service Date/Time: Saturday, June 24, 2017 18:05 - CONCLUSION: 1. Bibasilar patchy infiltrates (right worse than left) consistent with probable pneumonia. Clinical correlation is recommended. 2. Worsening pleural effusions which are moderate in size on the right and small on the left. 3. Diffuse peripheral perfusion defects involving the kidneys suggestive of decreased renal function or possible interval development of bilateral pyelonephritis. Clinical correlation is recommended. 4. Gallbladder wall thickening and vicarious excretion of contrast via the gallbladder. Clinical correlation is recommended to rule out cholecystitis. 5. Interval development of ascites within the abdomen. 6. Thickening of the wall of the ascending colon raising possibility of colitis. Clinical correlation is recommended. Brian Burnett MD Last Impressions Chest X-Ray 06/26/17 0600 Signed Impressions: Service Date/Time: Monday, June 26, 2017 05:19 - CONCLUSION: Persistent consolidation in the lower lungs. Location of the gastric tube cannot be determined on this exam. Technical limitations. Floyd Magallanes MD Head CT 06/24/17 1645 Signed Impressions: Service Date/Time: Saturday, June 24, 2017 18:00 - CONCLUSION: No acute disease. Brian Burnett MD Percutaneous Cholangiogram 06/24/17 0000 Signed Impressions: Service Date/Time: Saturday, June 24, 2017 20:36 - CONCLUSION: Uncomplicated percutaneous cholecystostomy as above. Lalo Wong MD Abdomen/Pelvis CT 06/24/17 0000 Signed Impressions: Service Date/Time: Saturday, June 24, 2017 18:05 - CONCLUSION: 1. Bibasilar patchy infiltrates (right worse than left) consistent with probable pneumonia. Clinical correlation is recommended. 2. Worsening pleural effusions which are moderate in size on the right and small on the left. 3. Diffuse peripheral perfusion defects involving the kidneys suggestive of decreased renal function or possible interval development of bilateral pyelonephritis. Clinical correlation is recommended. 4. Gallbladder wall thickening and vicarious excretion of contrast via the gallbladder. Clinical correlation is recommended to rule out cholecystitis. 5. Interval development of ascites within the abdomen. 6. Thickening of the wall of the ascending colon raising possibility of colitis. Clinical correlation is recommended. Brian Burnett MD Objective Remarks GENERAL: 57-year-old female currently orotracheally intubated, nonresponsive SKIN: Warm and dry. No rash. Well perfused HEAD: Atraumatic. Normocephalic. EYES: Pupils equal and round about 2 mm bilaterally and brisk. No scleral icterus. No injection or drainage. ENT: No nasal bleeding or discharge. Mucous membranes pink and moist. NECK: Trachea midline. No JVD. CARDIOVASCULAR: Irregular rhythm, rate currently 70s to 80s. S1, S2. No S4. Without murmur RESPIRATORY: Miss breath sounds in the bases bilaterally. No wheezing GASTROINTESTINAL: Abdomen soft, tender to palpation in the right upper quadrant and epigastric region. Cholecystostomy tube draining. MUSCULOSKELETAL: Extremities with trace lower extremity peripheral edema. No obvious deformities. 1+ edema right upper extremity NEUROLOGICAL: Spontaneous eye opening .Positive corneal reflex. Positive gag and cough. Withdraws to pain bilateral lower extremities. Date of Insertion: Jun 24, 2017 Line: Central Venous Catheter Side: Right Location: Subclavian A/P Assessment and Plan Neuro/Psych: Acute encephalopathy likely toxic metabolic UDS positive for barbiturates Depression/anxiety Seizure questionable All sedation discontinued 07/03/17 Goal of RASS -2 Daily sedation vacation Acetaminophen 650 mg by tube. every 6 hours as needed fever/pain CT brain 06/24 revealed no acute intracranial findings EEG 06/25 revealed right frontal lobe sharp activity indicative of epileptiform. Loaded with levetiracetam 1 g IV 1 on 06/26 followed by 500 mg IV twice daily. Repeat EEG 06/26 revealed continuous sharps in right frontal region Repeat EEG 06/28- no epileptiform activity Neurology- Dr. Shannon following peripherally 06/27 MRI brain-no acute intracranial abnormality Holding paroxetine unknown dosage daily home medication Obtain Keppra and Dilantin levels CV: Atrial fibrillation rate controlled History of atrial fibrillation currently in A. fib with RVR Hypertension Elevated BNP Lactic acidosis resolved Severe MR Severe TR Acute diastolic heart failure Tachybradycardia syndrome EKG reveals sinus bradycardia with first-degree AV block. Admission was A. fib with RVR. Amiodarone 200mg BID Cardiac markers troponin 0.05 2D echocardiogram revealed EF 45-50%. Decreased LV systolic function. Bilateral atrial enlargement. Severe MR and TR. Cardiology consult by [facility] with Dr. Jeffers EPS consult secondary to tachybradycardia syndrome CT surgery consulted to evaluate severe MR- Dr. Paul following Lactate is cleared 06/26 CVP monitoring trend-discontinued 06/30 Lasix 40 mg IV daily Resp: Acute respiratory insufficiency Right lower lobe infiltrate/pleural effusion PRVC 18/500/1.05/01/39 Ventilator bundle Albuterol/ipratropium aerosols every 6 hours with albuterol aerosols every 2 hours as needed for dyspnea Spontaneous breathing trials when clinically indicated 06/28 Chest x-ray - air space disease and pleural effusions 07/01 Continue CPAP trials ETT day 9-possible consideration for tracheostomy in the near future, will discuss with family GI: Epigastric/right upper quadrant pain Gastroesophageal reflux disease Hyperammonia Cholelithiasis on ultrasound 06/23 possibly acute cholecystitis Hypoalbuminemia CT abdomen/pelvis 06/23 revealed a 1 mm gallstone. No signs of cholecystitis. Otherwise unremarkable CT abdomen/pelvis 06/24 revealed right greater than left pleural effusions. Gallbladder wall thickening with voracious dye excretion, descending colon edema and bilateral perinephric stranding Status post cholecystostomy tube by IR 06/24- output last pm 250cc General surgery recommended continue cholecystostomy tube placement. Outpatient follow-up for cholecystectomy. Okay to initiate trickle feeds today. Currently on Nepro at 10 cc an hour. Continued at 20 cc today. Nutrition recommends Jevity 1.5 goal 50 cc an hour Repeat CT abdomen/pelvis with contrast if worsening symptomatology Previously patient has been on omeprazole 40 mg p.o. daily. Currently on pantoprazole 40 mg IV. daily for gastroesophageal reflux disease Docusate sodium/senna 1 tablet twice daily for bowel regimen Lactulose 30 cc daily for elevated ammonia. 07/03 ammonia level 10 GI consulted, Dr. Naqvi - S/P colonoscopy and endoscopy 06/30, upper endoscopy revealed medium-sized ulcer first part of duodenum, multiple small erosions gastric antrum. Colon- Normal mucosa : Ferguson catheter has been placed for accurate I's and O's and critical patient Endo: Acute hypoglycemia likely secondary to sepsis resolved Sliding-scale insulin Novulin R with Accu-Cheks every 4 hours to maintain euglycemia/low regimen TSH -1.76 Renal: Acute kidney injury- resolved Negative urine eosinophils and urine electrolytes likely prerenal indices by Janet No signs of hydronephrosis on CT abdomen/pelvis 06/23. Stranding noted around bilateral kidneys 06/24. Medical renal disease versus pyelonephritis Creatinine improved Heme: Microcytic hypochromic anemia Leukocytosis Resolved DIC Thrombocytopenia We will need iron studies and Hemoccult test done during this hospitalization Self-reported negative EGD/colonoscopy in the past per prior record Transfuse 1 unit PRBCs overnight. Will give 1 FFP and 1 cryo and 10 mg of vitamin K 06/27 Continue to monitor CBC 07/01 therapeutic Lovenox 80 mg twice a day ID: Severe sepsis likely gallbladder source plus/minus UA Started on ampicillin/tazobactam with vancomycin day #5 Pertinent cultures 06/25 -bile -no growth 06/25 -sputum -no growth 06/24 -blood cultures 4 -no growth 06/24 -urine -p no growth Urine Legionella pneumococcal antigens no growth Influenza negative MSK: PT evaluate and treat Daily functional maintenance Multi-Podus boots bilaterally FEN: Electrolyte derangement Replace electrolytes as clinically indicated per ICU electrolyte protocol F/U BMP Access -Right subclavian CVL day #9 placed 06/24. Continue -Right radial arterial line day #4 placed /. Discontinued 3/3 Prophylaxis -GI -pantoprazole -DVT -SCDs Therapuetic lovenox BID Critical Care: Level 3 followup 3/ Discussed with Yaneth Garcia. Discussed in detail neurological condition including seizure activity on EEG, imaging being performed, medication adjustments and neurology consultation. Discussed cholecystostomy tube in follow-up with general surgery most likely as an outpatient with current medical condition improves. Discussed with FLYER REPAIRER at bedside (Norberto) 07/03: Discussed with palliative care production team member Dr. Major, patient continues to be encephalopathic, Neurology following. Attempted to call patient 's son Kenneth Walker at [phone], unsuccessful, no answer and does not have voicemail. Physician Madeleine Crews MD Jul 03, 2017 10:41
[2017-07-03 12:10] LABS: BICARBONATE 29.2 MEQ/L (21.0-32.0); CALCIUM 8.9 MG/DL (8.5-10.1); CREATININE 0.77 MG/DL (0.50-1.00)
[2017-07-03] MEDS: POTASSIUM CHLOR 40 MEQ PREMIX 100 ML IV PRN ×2 (12:31→14:26)
--- NOTE | 2017-07-03 13:26 | PD.CONS ---
Consult Service Palliative Care Consult Requested By Dr. Sevilla Primary Care Physician Non-Staff Reason for Consultation a. To assist with evaluation and management of symptoms including: dyspnea. pain b. To assist medical decision maker(s) with: better understanding of current medical conditions; weighing benefits/burdens of medical treatment options; making medical treatment decisions. HPI History of Present Illness Patient is a 57-year-old with a past medical history of COPD, GERD, hypertension , cardiovascular problems that presented to the hospital on 06/23/2017 for complaints of epigastric and abdominal pain, nausea vomiting, shortness of breath. Patient's pain was burning and localized around the epigastric area. In the ER: * Temperature is 97.8, pulse is 165, respiration rate is 18, blood pressure is 155/85, pulse ox is 100% * WBCs 8.5, hemoglobin 7.9, hematocrit is 26.0, platelet is 294 * Sodium is 136, potassium 3.3, chloride is 103, bicarbonate was 24.2, BUN is 15 , creatinine 0.81 * AST is 18, ALT is 12, alkaline phosphatase is 122, CK is 43, troponin I is less than 0.02 * Urine tox screen is positive barbiturates * Chest x-ray shows bilateral hazy perihilar and bibasilar opacities concerning for pulmonary edema. * Abdominal CT shows bilateral pleural effusion. It is of acute abdominal or pelvic processes. His identified In the ER apparently patient had A. fib and RVR and was placed on Cardizem drip. So had mid epigastric abdominal pain. Patient was transferred to hospitalist for pulmonary edema, A. fib, abdominal pain. 06/24/2017- patient was found to be somnolent and not really waking up to verbal stimuli. Heart rate was down to 42. EKG reveals sinus bradycardia Patient is found to be anemic, more somnolent and was transferred to the ICU. Critical medicine saw patient, patient was intubated for respiratory insufficiency with progressive to sepsis.. CT of the head was ordered and shows no acute disease process. Abdomen and pelvic CT was obtained again. Again shows bibasilar patchy infiltrates probable pneumonia. Worsening pleural effusion. Diffuse peripheral perfusion defect involving the kidney suggestive of decreased renal function or possible interval development of bilateral pyelonephritis. Gallbladder wall thickening and various excretion of contrast via the gallbladder. Interval development of ascites within the abdomen. Thickening of the wall of the ascending colon raising possibility of colitis. Patient likely have sepsis secondary to cholecystitis which is progress to sepsis. Intervention radiology was consulted and plan for emergent cholecystectomy tube placement, which was successful. 06/25/2017-surgery was consulted and evaluated patient. Surgery following and patient may have cholecystectomy once patient's condition improves. EEG was performed which shows some probable foci of epileptic activity. 2-D echo shows EF of 45-50%, left atrium moderately to severely dilated. Right atrium moderately to severely dilated. Show severe mitral valve regurgitation. Tricuspid shows moderate regurgitation. 06/26/2017-patient remains on A. fib with RVR. Remains sedated on the ventilator. Neurology was consulted for possible seizure activity. 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 There evaluation shows tachycardia bradycardia syndrome x-ray difficult to control. Tachycardia may most likely be due to anemia infection. Currently patient is not a candidate for any surgery and recommendations to continue with current management. If heart rate cannot be controlled patient may need pacing support. 06/27/2017-EEG was repeated shows moderate slow wave concerning for epileptic seizures. Patient's started on Dilantin and Keppra 06/28/2017 - 06/30/2017- patient is remains critically ill intubated and sedated. Patient's condition complicated by anemia, and underwent endoscopy. Endoscopy shows esophagus was otherwise normal, there is multiple small erosions found in the gastric antrum. Medium-sized ulcer was found in the duodenum. Colonoscopy was otherwise normal. 07/01/2017- 07/02/2017. Patient on CPAP but minimally responsive. He shouldn't not tracking or responding to commands. Plan is to hold off on sedation, and possible repeat of EEG. Palliative care was consulted to review PEG and trach decisions versus transition to comfort. In summary: Patient came in with abdominal pain. Patient became lethargic and obtunded developed respiratory insufficiency. Patient's workup shows cholecystitis that has progressed to severe sepsis. In addition patient's condition is complicated by A. fib, tachybradycardia syndrome, cardiomyopathy, severe mitral valve regurgitation, seizures, encephalopathy in which patient is not following commands, anemia from GI bleed secondary to duodenal ulcers.. She status post cholecys tube placement. Pt is getting closer to peg trach decisions. Patient will revisit was unresponsive, non-sedation, not following commands not tracking. Called Yaneth Massey(daughter) (left voicemail), has not called back. Called Nikunj (son) : Able to review pt's clinical situation. Spoke about peg / trach and code status. He endorse that pt likely would not want prolong intubation, and life support. He states he will get his siblings other siblings (Rober, Charisse, Billy) together and have a family meeting, hopefully by Thursday. code status is the same. I have provided my cell phone number for him to confirm the family meeting once it is set up. Function/Cognitive Trajectory Per son pt had been have chronic stomach issue, but was independent of adls. He was taking care of her sister and daughter. Review of Systems ROS Limitations: Clinical Condition Constitutional: COMPLAINS OF: Fatigue Cardiovascular: COMPLAINS OF: Palpitations Gastrointestinal: COMPLAINS OF: Abdominal pain Past Family Social History Coded Allergies: Sulfa (Sulfonamide Antibiotics) (Verified Allergy, Unknown, 06/23/17) ciprofloxacin (Verified Allergy, Unknown, 06/23/17) hydromorphone (Verified Allergy, Unknown, 06/23/17) Past Medical History atrial fibrillation, anxiety, GERD anemia Past Surgical History Tubal ligation Current Medications Medications (Trade) Dose Ordered Sig/Salud Route Start Time Stop Time Status Last Admin (Narcan Inj) 0.4 mg UNSCH PRN IV PUSH 06/23/17 20:30 Potassium Chloride 100 ml @ 25 mls/hr Q2H PRN IV 06/24/17 17:00 07/03/17 12:31 Potassium Chloride 100 ml @ 50 mls/hr Q2H PRN IV 06/24/17 17:00 (K-Lyte Cl Eff) 50 meq UNSCH PRN PO 06/24/17 17:00 Potassium Chloride 100 ml @ 25 mls/hr UNSCH PRN IV 06/24/17 17:00 06/30/17 05:18 Potassium Chloride 100 ml @ 50 mls/hr Q2H PRN IV 06/24/17 17:00 06/28/17 09:04 Magnesium Sulfate 4 gm/Sodium Chloride 100 ml @ 50 mls/hr UNSCH PRN IV 06/24/17 17:00 (Mag-Ox) 800 mg UNSCH PRN PO 06/24/17 17:00 Magnesium Sulfate 2 gm/Sodium Chloride 100 ml @ 50 mls/hr UNSCH PRN IV 06/24/17 17:00 06/25/17 07:53 (K-Phos) 2,000 mg Q4H PRN PO 06/24/17 17:00 Sodium Phosphate 30 mmol/Sodium Chloride 250 ml @ 42 mls/hr UNSCH PRN IV 06/24/17 17:00 (K-Phos) 2,000 mg UNSCH PRN PO/TUBE 06/24/17 17:00 Potassium Phosphate 30 mmol/ Sodium Chloride 260 ml @ 42 mls/hr UNSCH PRN IV 06/24/17 17:00 (D50w (Vial) Inj) 50 ml UNSCH PRN IV PUSH 06/24/17 17:00 (Glucagon Inj) 1 mg UNSCH PRN OTHER 06/24/17 17:00 (NS Flush) 2 ml UNSCH PRN IV FLUSH 06/24/17 17:00 (NS Flush) 2 ml BID IV FLUSH 06/24/17 21:00 07/03/17 08:09 (Zofran Inj) 4 mg Q6H PRN IV PUSH 06/24/17 17:00 (Albuterol Neb) 2.5 mg Q2HR NEB PRN INH 06/24/17 17:00 Miscellaneous Information 1 Q361D XX 06/24/17 18:00 (Chlorhexidine 2% Cloth) Taper DAILY@04 TOP 06/25/17 04:00 06/21/18 03:59 07/02/17 04:00 (Chlorhexidine 2% Cloth) 3 pack UNSCH PRN TOP 06/24/17 17:00 (Keiry-Colace) 1 tab BID PO 06/24/17 21:00 07/03/17 08:08 (Milk Of Magnesia Liq) 30 ml Q12H PRN PO 06/24/17 17:00 06/28/17 15:30 (Senokot) 17.2 mg Q12H PRN PO 06/24/17 17:00 (Dulcolax Supp) 10 mg DAILY PRN RECTAL 06/24/17 17:00 (Lactulose Liq) 30 ml DAILY PRN PO 06/24/17 17:00 Piperacillin Sod/ Tazobactam Sod 50 ml @ 100 mls/hr Q6H IV 06/24/17 20:00 07/03/17 08:08 Pharmacy Profile Note 0 ml @ 0 mls/hr UNSCH OTHER 06/24/17 18:00 (Peridex 0.12% Liq) 15 ml BID@08,20 MT 06/24/17 20:00 07/03/17 08:09 (Brethine Inj) 1 mg UNSCH PRN SQ 06/24/17 19:30 (Tears Naturale Opth Soln) 1 drop Q8HR EACH EYE 06/24/17 22:00 07/03/17 12:31 (NovoLIN R SUPPLEMENTAL SCALE) 1 Q4HR SQ 06/24/17 20:00 (Protonix Inj) 40 mg Q24H IV PUSH 06/24/17 20:00 07/02/17 19:50 (Tylenol 650 Mg/ 20 ml Liq) 650 mg Q6H PRN NG 06/25/17 08:45 07/02/17 00:57 Levetriacetam 500 mg/Sodium Chloride 105 ml @ 420 mls/hr Q12HR IV 06/26/17 21:00 07/03/17 08:08 (Cerebyx Inj) 100 mgpe Q8HR IV 06/27/17 22:00 07/03/17 04:57 (Cordarone) 200 mg Q12HR PO 06/29/17 16:00 07/03/17 08:08 Vancomycin HCl 1750 mg/Sodium Chloride 517.5 ml @ 250 mls/hr Q24H IV 06/30/17 09:00 07/03/17 09:37 (Lasix Inj) 40 mg DAILY IV PUSH 06/30/17 09:00 07/03/17 08:09 (Lopressor Inj) 2.5 mg Q6H PRN IV PUSH 06/30/17 09:45 07/03/17 09:36 (Lovenox Inj) 80 mg Q12H SQ 06/30/17 19:00 07/03/17 05:56 Miscellaneous Information SPECIFIC LAB TO BE DRAWN:VANCO TROUGH DATE TO... ONCE ONCE .XX 07/05/17 08:45 07/05/17 08:46 (Trandate Inj) 10 mg Q4H PRN IV PUSH 07/02/17 16:45 07/03/17 08:32 (Duoneb Neb) 1 ampule Q6HR NEB NEB 07/03/17 16:00 Family History Mother has Alzheimer's disease past in her 80s. Father past from cardiac complications in the 1970s. 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 Pt is . Currently has 4 children Billy Mcqueen, Nikunj [phone] Yaneth; Spiritual/Cultural Factors none listed Living Will: Never completed Health Care Surrogate: Never completed Durable Power of Section Plotter Operator: Never completed Physical Exam Vital Signs Date Time Temp Pulse Resp B/P (MAP) Pulse Ox O2 Delivery O2 Flow Rate FiO2 07/03/17 11:11 97 30 07/03/17 10:00 97 07/03/17 08:00 30 07/03/17 08:00 99 07/03/17 08:00 99.5 99 15 167/81 (109) 100 07/03/17 07:49 100 30 07/03/17 06:00 112 07/03/17 04:00 98.9 101 16 161/72 (101) 99 07/03/17 04:00 30 07/03/17 04:00 122 07/03/17 03:36 100 30 07/03/17 02:00 99 07/03/17 00:45 99 30 07/03/17 00:00 99.7 104 18 135/65 (88) 100 07/03/17 00:00 30 07/03/17 00:00 102 07/02/17 22:00 93 07/02/17 21:32 99 30 07/02/17 20:07 98 30 07/02/17 20:00 30 07/02/17 20:00 118 07/02/17 20:00 100.1 118 18 122/58 (79) 98 07/02/17 18:00 108 07/02/17 16:00 30 07/02/17 16:00 92 07/02/17 16:00 98.7 111 18 124/58 (80) 98 07/02/17 16:00 86 07/02/17 15:44 99 30 07/02/17 14:00 107 07/03/17 07/04/17 19:00 07:00 Intake Total 220 ml Balance 220 ml IV Total 220 ml Exam CONSTITUTIONAL/GENERAL: This is an adequately nourished patient, in no apparent distress. TUBES/LINES/DRAINS: SKIN: No jaundice, rashes, or lesions. Ecchymoses on upper extremities. No wounds seen anteriorly. Skin temperature appropriate. Not diaphoretic. HEAD: Atraumatic. Normocephalic. EYES: Pupils equal and round and reactive. Extraocular motions intact. No scleral icterus. No injection or drainage. Fundi not examined. ENT: Hearing grossly normal. Nose without bleeding or purulent drainage. Throat without visible erythema, exudates, masses, or lesions. NECK: Trachea midline. Supple, nontender. No palpable thyroid enlargement or nodularity. CARDIOVASCULAR: Regular rate and rhythm without murmurs, gallops, or rubs. No JVD. Peripheral pulses symmetric. RESPIRATORY/CHEST: Symmetric, unlabored respirations. Clear to auscultation. Breath sounds equal bilaterally. No wheezes, rales, or rhonchi. GASTROINTESTINAL: Abdomen soft, non-tender, nondistended. No hepato-splenomegaly , or palpable masses. No guarding. Bowel sounds present. GENITOURINARY: Without palpable bladder distension. Ferguson catheter in place. MUSCULOSKELETAL: Extremities without clubbing, cyanosis, or edema. No joint tenderness or effusion noted. No calf tenderness. No mottling or clubbing. LYMPHATICS: No palpable cervical or supraclavicular adenopathy. NEUROLOGICAL: Awake and alert. Motor and sensory grossly within normal limits. Follows commands. Cognitively sharp. Moves all extremities. PSYCHIATRIC: No obvious anxiety/depression. no apparent hallucinations or other psychotic thought process. Diagnostic Tests Laboratory Laboratory Tests Test 06/30/17 20:23 07/01/17 03:30 07/01/17 08:45 07/01/17 13:00 Hemoglobin 8.8 GM/DL (11.6-15.3) 7.8 GM/DL (11.6-15.3) Hematocrit 28.5 % (35.0-46.0) 25.4 % (35.0-46.0) White Blood Count 7.1 TH/MM3 (4.0-11.0) Red Blood Count 3.59 MIL/MM3 (4.00-5.30) Mean Corpuscular Volume 70.8 FL (80.0-100.0) Mean Corpuscular Hemoglobin 21.7 PG (27.0-34.0) Mean Corpuscular Hemoglobin Concent 30.7 % (32.0-36.0) Red Cell Distribution Width 22.0 % (11.6-17.2) Platelet Count 132 TH/MM3 (150-450) Mean Platelet Volume 8.6 FL (7.0-11.0) Blood Urea Nitrogen 12 MG/DL (7-18) Creatinine 0.72 MG/DL (0.50-1.00) Random Glucose 98 MG/DL (74-106) Calcium Level 8.4 MG/DL (8.5-10.1) Phosphorus Level 2.8 MG/DL (2.5-4.9) Magnesium Level 1.9 MG/DL (1.5-2.5) Sodium Level 140 MEQ/L (136-145) Potassium Level 3.2 MEQ/L (3.5-5.1) 3.4 MEQ/L (3.5-5.1) Chloride Level 105 MEQ/L (98-107) Carbon Dioxide Level 27.6 MEQ/L (21.0-32.0) Anion Gap 7 MEQ/L (5-15) Estimat Glomerular Filtration Rate 83 ML/MIN (>89) Vancomycin Level Trough 12.5 MCG/ML (5.0-10.0) Test 07/01/17 23:38 07/02/17 04:30 07/03/17 03:05 07/03/17 03:10 Hemoglobin 8.2 GM/DL (11.6-15.3) 7.8 GM/DL (11.6-15.3) 8.3 GM/DL (11.6-15.3) Hematocrit 25.6 % (35.0-46.0) 25.0 % (35.0-46.0) 26.8 % (35.0-46.0) White Blood Count 7.6 TH/MM3 (4.0-11.0) 9.7 TH/MM3 (4.0-11.0) Red Blood Count 3.53 MIL/MM3 (4.00-5.30) 3.81 MIL/MM3 (4.00-5.30) Mean Corpuscular Volume 70.8 FL (80.0-100.0) 70.4 FL (80.0-100.0) Mean Corpuscular Hemoglobin 22.2 PG (27.0-34.0) 21.9 PG (27.0-34.0) Mean Corpuscular Hemoglobin Concent 31.3 % (32.0-36.0) 31.1 % (32.0-36.0) Red Cell Distribution Width 22.0 % (11.6-17.2) 22.3 % (11.6-17.2) Platelet Count 152 TH/MM3 (150-450) 155 TH/MM3 (150-450) Mean Platelet Volume 9.0 FL (7.0-11.0) 8.3 FL (7.0-11.0) Fibrinogen 476 mg/dL (227-377) Blood Urea Nitrogen 11 MG/DL (7-18) Creatinine 0.76 MG/DL (0.50-1.00) Random Glucose 97 MG/DL (74-106) Calcium Level 8.6 MG/DL (8.5-10.1) Phosphorus Level 3.1 MG/DL (2.5-4.9) 3.6 MG/DL (2.5-4.9) Magnesium Level 1.9 MG/DL (1.5-2.5) 2.0 MG/DL (1.5-2.5) Sodium Level 141 MEQ/L (136-145) Potassium Level 3.6 MEQ/L (3.5-5.1) Chloride Level 105 MEQ/L (98-107) Carbon Dioxide Level 28.7 MEQ/L (21.0-32.0) Anion Gap 7 MEQ/L (5-15) Estimat Glomerular Filtration Rate 78 ML/MIN (>89) Neutrophils (%) (Auto) 75.4 % (16.0-70.0) Lymphocytes (%) (Auto) 10.3 % (9.0-44.0) Monocytes (%) (Auto) 7.6 % (0.0-8.0) Eosinophils (%) (Auto) 5.9 % (0.0-4.0) Basophils (%) (Auto) 0.8 % (0.0-2.0) Neutrophils # (Auto) 7.3 TH/MM3 (1.8-7.7) Lymphocytes # (Auto) 1.0 TH/MM3 (1.0-4.8) Monocytes # (Auto) 0.7 TH/MM3 (0-0.9) Eosinophils # (Auto) 0.6 TH/MM3 (0-0.4) Basophils # (Auto) 0.1 TH/MM3 (0-0.2) CBC Comment DIFF FINAL Differential Comment Ammonia 10 MCMOL/L (11-32) Test 07/03/17 05:30 07/03/17 11:10 Blood Gas Puncture Site RT BRACHIAL Blood Gas Patient Temperature 98.6 Blood Gas HCO3 26 mmol/L (22-26) Blood Gas Base Excess 3.0 mmol/L (-2-2) Blood Gas Oxygen Saturation 94 % (90-100) Arterial Blood pH 7.50 (7.380-7.420) Arterial Blood Partial Pressure CO2 33 mmHg (38-42) Arterial Blood Partial Pressure O2 84 mmHg (61-120) Arterial Blood Oxygen Content 10.7 Vol % (12.0-20.0) Arterial Blood Carboxyhemoglobin 1.9 % (0-4) Arterial Blood Methemoglobin 1.3 % (0-2) Blood Gas Hemoglobin 8.1 G/DL (12.0-16.0) Oxygen Delivery Device VENTILATOR Blood Gas Ventilator Setting CPAP 5PEEP/12PS Blood Gas Inspired Oxygen 30 % Blood Urea Nitrogen 12 MG/DL (7-18) Creatinine 0.77 MG/DL (0.50-1.00) Random Glucose 105 MG/DL (74-106) Calcium Level 8.9 MG/DL (8.5-10.1) Sodium Level 140 MEQ/L (136-145) Potassium Level 2.8 MEQ/L (3.5-5.1) Chloride Level 101 MEQ/L (98-107) Carbon Dioxide Level 29.2 MEQ/L (21.0-32.0) Anion Gap 10 MEQ/L (5-15) Estimat Glomerular Filtration Rate 77 ML/MIN (>89) Phenytoin (Dilantin) Level 3.8 MCG/ML (10.0-20.0) Result Diagram: 07/03/17 030 07/03/17 1110 Patient/Family Conference Issues Discussed: * Palliative care role, purpose, approach * Additional medical, psychosocial, and spiritual history * Patients general health, functional status, and cognitive changes in the months leading up to the current hospitalization * Patient/family understanding of the current medical problems * Patient/family understanding of prognosis * Patients goals of care as best understood from advance directives and/or conversations and/or values * Current medical treatment options and benefits/burdens of those options * Likely scenarios comparing ongoing aggressive care with a transition to comfort measures only * Questions answered to the best of my ability * Palliative care contact information provided Assessment and Plan Symptom Scale: (1) Dyspnea 0-10 Scale: Unable to quantify (2) Pain 0-10 Scale: Unable to quantify Pertinent Non-Medical Issues Psychosocial: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 Spiritual:none listed. Legal:Pt is . Currently has 4 children Billy Mcqueen, Nikunj [phone] Yaneth; [phone] Health care proxy are the 4 children. Ethical issues impacting care:none Important Contacts Son: Nikunj [phone] Yaneth [phone]. Prognosis 57 year old prognosis is guarded. Code Status: Full Code Plan ==Code: Full for now. == Capacity- pt currently have no capacity to make medical decisions. Had seizures and encephalopathy. Currently holding on sedation to see if mentation can progress. == Health Care decision maker- pt is . No advance directives. Per [employer] proxy is pt's four children: Nikunj, Yaneth, Charisse, and Billy. == symptoms: pain- cholecytitis bedbound dyspnea- on mechanical ventilation. Curently off sedation to see if there is progress of neurostatus: no new med rec. == goals of care: have only been able to reach pt's son Nikunj. Nikunj endorse pt likely would now want peg and trach. Nikunj will call me back to confer time of family meeting with pt's other children. goals are to continue medical care. Called son NIKUNJ again at 430 pm, could not leave message with voicemail. Unable to confirm date and time of family meeting. Yaneth has not called back. == palliative care will follow to make reccomendations for symptoms and to review goals of care as pt's condition evolves. Thank you for the opportunity to participate in the care of Ms. Mercer. Attestation To help prompt me to consider important information that might be impacting today's encounter and assessment, information from prior notes written by myself or my colleagues may have been "brought forward" into today's note. My signature on this note, however, is an attestation that I personally performed the exam, history, and/or decision-making noted today, and, unless otherwise indicated, the interactions with patient, family, and staff as well as the review of records all occurred today. I also attest that the listed assessment and stated plan reflect my best clinical judgment today based on the combination of historical information, prior notes, and today's exam/ interactions. When time spent is documented, it refers only to time spent today by the signer, or if indicated, combined time spent today by collaborating physician/nurse practitioner. Mejia Major MD Jul 03, 2017 13:26
[2017-07-03] MEDS: PANTOPRAZOLE SODIUM 40 MG VIAL IV PUSH SCH (20:46)
[2017-07-04] VITALS (24 sets, daily range): BP systolic 138–170; BP diastolic 65–82; PULSE 99–126; RESP 15–28; TEMP 98.9–100.5; O2SAT 97–100
[2017-07-04] MEDS: PIPERACIL-TAZO 3.375 GM PREMIX 50 ML IV SCH ×4 (02:25→20:11)
[2017-07-04 03:08] LABS: HEMATOCRIT 26.8 % (35.0-46.0); HEMOGLOBIN 8.2 GM/DL (11.6-15.3); MEAN CELL VOLUME 71.3 FL (80.0-100.0); MEAN CORPUSCULAR HEMOGLOBIN 21.8 PG (27.0-34.0); MEAN CORPUSCULAR HGB CONC 30.6 % (32.0-36.0); MEAN PLATELET VOLUME 8.3 FL (7.0-11.0); PLATELET COUNT 140 TH/MM3 (150-450); RED BLOOD COUNT 3.75 MIL/MM3 (4.00-5.30); RED CELL DISTRIBUTION WIDTH 21.4 % (11.6-17.2); WHITE BLOOD COUNT 9.9 TH/MM3 (4.0-11.0)
[2017-07-04 03:45] LABS: BICARBONATE 28.2 MEQ/L (21.0-32.0); CREATININE 0.71 MG/DL (0.50-1.00); PHOSPHORUS 2.4 MG/DL (2.5-4.9)
[2017-07-04] MEDS: POTASSIUM CHLOR 40 MEQ PREMIX 100 ML IV PRN (03:51)
[2017-07-04] MEDS: INSULIN NovoLIN REGULAR SUPPLEMENTAL SCALE SQ SCH ×7 (03:53→23:51)
[2017-07-04] MEDS: CHLORHEXIDINE GLUCONATE 2 % 1 PACK (2 CLOTHS) TOP SCH (04:00)
[2017-07-04] MEDS: RESP: ALBUTEROL 2.5 MG/IPRATROPIUM 0.5 MG NEB (SCH) NEB ×4 (04:16→19:59)
[2017-07-04] MEDS: ARTIFICIAL TEARS OPTH SOLN 15 ML BTL EACH EYE SCH ×3 (05:50→20:11)
[2017-07-04] MEDS: FOSPHENYTOIN SODIUM 100 MG PE/2 ML VIAL IV SCH ×3 (05:51→20:12)
[2017-07-04] MEDS: ENOXAPARIN SODIUM 80 MG/0.8 ML SYRINGE SQ SCH ×2 (05:51→17:22)
[2017-07-04] MEDS: METOPROLOL TARTRATE 5 MG/5 ML VIAL IV PUSH PRN ×2 (07:44→13:44)
[2017-07-04] MEDS: CHLORHEXIDINE 0.12% (ORAL KIT) 15 ML CUP MT SCH ×2 (08:00→20:13)
[2017-07-04] MEDS: ONDANSETRON HCL 4 MG/2 ML VIAL IV PUSH PRN ×2 (08:18→17:28)
[2017-07-04] MEDS: FUROSEMIDE 40 MG/4 ML VIAL IV PUSH SCH (08:21)
[2017-07-04] MEDS: levETIRAcetam INJ 500 MG in SODIUM CHLORIDE 0.9% INJ 100 ML IV SCH ×2 (08:22→20:12)
[2017-07-04] MEDS: SODIUM CHLORIDE 0.9% FLUSH 10 ML FLUSH IV FLUSH SCH ×2 (08:22→20:13)
[2017-07-04] MEDS: AMIODARONE 200 MG TAB PO SCH ×2 (08:22→20:12)
[2017-07-04] MEDS: DOCUSATE SODIUM 50 MG/SENNA 8.6 MG TAB PO SCH ×2 (08:39→20:12)
--- NOTE | 2017-07-04 08:45 | HHI.CCPN ---
Subjective Remarks/Hospital Course 57-year-old female. Date of admission 06/23/2017. Date of consultation 2017. Past medical history includes Patient originally presented to [facility] ED in atrial fibrillation with rapid ventricular response. Patient was initially started on a diltiazem drip and then was switched over to metoprolol tartrate 50 mg every 8 hours. After conversion, patient became bradycardic. CT abdomen/pelvis revealed a 1 mm gallstone without signs of cholecystitis. Otherwise unremarkable. The patient became more somnolent on the floor and bradycardic with heart rates as low as 42. EKG revealed sinus bradycardia with a first-degree AV block. Patient was arousable and with good pain in 1-2 word responses but fell asleep immediately. On examination patient did have pain especially in her right upper quadrant. CBC revealed hemoglobin 8.4. Ammonia level 35. BNP of 341. Remainder of laboratories are currently pending. Chest x-ray revealed right lower lobe infiltrate versus effusion. Patient did receive 60 mg total of furosemide within the past 24 hours. 3: Afebrile. Status post percutaneous cholecystostomy tube yesterday with aggressive crystalloid resuscitation. Currently resting in bed in no acute distress. Not on vasopressors. 32: Afebrile. A. fib with RVR overnight started on amiodarone drip. Digoxin 0.25 mg and diltiazem 10 mg given prior to initiation of amiodarone. Remains sedated on the ventilator. Possible seizure activity on EEG. Neurology is been counseled.. EPS cardiology and cardiothoracic surgery also been consulted for tachybradycardia syndrome and severe MR. Dr. Sterling/neurosurgeon is clear to trickle feeds today Subjective 3/3: Afebrile. EEG revealed continuous sharp spikes involving right frontal central region. Remains on levetiracetam at 500 mg every 12 hours. Noted possible switch to fosphenytoin per EEG report. Currently on propofol drip at 30 mcg/kg/min. Withdraws bilateral lower exams. Does not withdraw upper extremities currently. MRI brain currently pending. Tolerating trickle feeds at 10 cc an hour. 3: Repeat EEG pending today. Fosphenytoin added to medication regimen yesterday.No change in neurological assessment. Trickle feeds increased to 20 cc/hour with minimal residuals. 06/29: EEG repeated only showed slow waves possibly medication contributory. Patient previously on anticoagulation prior to admission and her to A. fib RVR, but due to concern for indeterminate source of anemia, GI consulted for recommendations and evaluation of risks/ benefits to initiate anticoagulation therapy. Patient continued to have pleural effusions Lasix IV dose 40 mg given. 06/30: Tolerated CPAP trials 2 hours, continues to be nonresponsive. Patient underwent EGD and colonoscopy colonoscopy was within normal limits. EGD revealed small erosions in the first part of the duodenum and a medium-sized ulcer. Recommended per GI to initiate/ resume anticoagulant therapy. Plan for every 12 hours H&H. 07/01: Patient remained on CPAP trials for approximately 2 hours. Patient remains encephalopathic off sedation. Noted hemoglobin drop will continue to closely monitor as therapeutic anticoagulation was initiated yesterday. 07/02: Hemoglobin stable. Patient continues on CPAP with light sedation. With sedation vacation the patient still is not responding to commands, not tracking. EEG shows no epileptiform activity. Patient will require tracheostomy and PEG placement consideration in the near future .Palliative care has been consulted. 07/03: Afebrile. Sedation has been completely discontinued, patient's opens eyes spontaneously movement of lower extremities to pain,but not on command. Patient continues on CPAP for greater than 24 hours. Plan discussion of to define goals of care with family per palliative care team. . 07/04: Tmax 100.0. The patient is now tracking visually, and following some commands ,sedation discontinued greater than 48 hours. Noted chest x-ray improvement. Continues on CPAP Extensive discussion with son this a.m. via telephone( Kenneth Walker), patient would not desire a tracheostomy, long-term mechanical ventilation or PEG. Tentative plan for Thursday for patient's 4 children to meet with palliative care to define goals of care. Discussion regarding blood products, patient is to receive blood products if needed. Per patient's family the patient attends a " [employer]" denominational, but is not a baptized Jehovah witness, and continue transfusion of blood products if needed. Objective Vital Signs Date Time Temp Pulse Resp B/P (MAP) Pulse Ox O2 Delivery O2 Flow Rate FiO2 07/04/17 07:34 99 30 07/04/17 06:00 106 07/04/17 05:00 21 154/70 (98) 07/04/17 04:00 99.5 Intake and Output 07/04/17 07/04/17 07/05/17 08:00 16:00 00:00 Intake Total 813 ml Output Total 910 ml Balance -97 ml Result Diagram: 07/04/17 0300 07/04/17 0300 Imaging Last Impressions Chest X-Ray 07/03/17 0600 Signed Impressions: Service Date/Time: Monday, July 03, 2017 05:06 - CONCLUSION: Decreasing bibasilar consolidation and very small effusions. Stanislaw Ryan MD Brain MRI 06/27/17 0000 Signed Impressions: Service Date/Time: Tuesday, June 27, 2017 10:00 - CONCLUSION: 1. No acute intracranial abnormality. 2. Mild chronic small vessel ischemic change. Floyd Tiwari Jr., MD Head CT 06/24/17 1645 Signed Impressions: Service Date/Time: Saturday, June 24, 2017 18:00 - CONCLUSION: No acute disease. Brian Burnett MD Percutaneous Cholangiogram 06/24/17 0000 Signed Impressions: Service Date/Time: Saturday, June 24, 2017 20:36 - CONCLUSION: Uncomplicated percutaneous cholecystostomy as above. Lalo Wong MD Abdomen/Pelvis CT 06/24/17 0000 Signed Impressions: Service Date/Time: Saturday, June 24, 2017 18:05 - CONCLUSION: 1. Bibasilar patchy infiltrates (right worse than left) consistent with probable pneumonia. Clinical correlation is recommended. 2. Worsening pleural effusions which are moderate in size on the right and small on the left. 3. Diffuse peripheral perfusion defects involving the kidneys suggestive of decreased renal function or possible interval development of bilateral pyelonephritis. Clinical correlation is recommended. 4. Gallbladder wall thickening and vicarious excretion of contrast via the gallbladder. Clinical correlation is recommended to rule out cholecystitis. 5. Interval development of ascites within the abdomen. 6. Thickening of the wall of the ascending colon raising possibility of colitis. Clinical correlation is recommended. Brian Burnett MD Last Impressions Chest X-Ray 07/01/17 0600 Signed Impressions: Service Date/Time: Saturday, July 01, 2017 03:51 - CONCLUSION: Stable chest x-ray with moderate sized bilateral opacities likely representing pleural effusions with associated volume loss and/or airspace consolidation. Stanislaw Galvez MD Brain MRI 06/27/17 Signed Impressions: Service Date/Time: Tuesday, June 27, 2017 10:00 - CONCLUSION: 1. No acute intracranial abnormality. 2. Mild chronic small vessel ischemic change. Floyd Tiwari Jr., MD Head CT [id number] Signed Impressions: Service Date/Time: Saturday, June 24, 2017 18:00 - CONCLUSION: No acute disease. Brian Burnett MD Percutaneous Cholangiogram 06/24/17 Signed Impressions: Service Date/Time: Saturday, June 24, 2017 20:36 - CONCLUSION: Uncomplicated percutaneous cholecystostomy as above. Lalo Wong MD Abdomen/Pelvis CT 06/24/17 Signed Impressions: Service Date/Time: Saturday, June 24, 2017 18:05 - CONCLUSION: 1. Bibasilar patchy infiltrates (right worse than left) consistent with probable pneumonia. Clinical correlation is recommended. 2. Worsening pleural effusions which are moderate in size on the right and small on the left. 3. Diffuse peripheral perfusion defects involving the kidneys suggestive of decreased renal function or possible interval development of bilateral pyelonephritis. Clinical correlation is recommended. 4. Gallbladder wall thickening and vicarious excretion of contrast via the gallbladder. Clinical correlation is recommended to rule out cholecystitis. 5. Interval development of ascites within the abdomen. 6. Thickening of the wall of the ascending colon raising possibility of colitis. Clinical correlation is recommended. Brian Burnett MD Last Impressions Chest X-Ray 06/30/17 0600 Signed Impressions: Service Date/Time: Friday, June 30, 2017 05:14 - CONCLUSION: 1. Persistent moderate-sized bibasilar opacities representing pleural effusions with associated volume loss and/or airspace consolidation. 2. There are new more focal patchy airspace opacities in the left upper lung zone. Stanislaw Galvez MD Brain MRI 06/27/17 Signed Impressions: Service Date/Time: Tuesday, June 27, 2017 10:00 - CONCLUSION: 1. No acute intracranial abnormality. 2. Mild chronic small vessel ischemic change. Floyd Tiwari Jr., MD Head CT 06/24/175 Signed Impressions: Service Date/Time: Saturday, June 24, 2017 18:00 - CONCLUSION: No acute disease. Brian Burnett MD Percutaneous Cholangiogram 06/24/17 0000 Signed Impressions: Service Date/Time: Saturday, June 24, 2017 20:36 - CONCLUSION: Uncomplicated percutaneous cholecystostomy as above. Lalo Wong MD Abdomen/Pelvis CT 06/24/17 0000 Signed Impressions: Service Date/Time: Saturday, June 24, 2017 18:05 - CONCLUSION: 1. Bibasilar patchy infiltrates (right worse than left) consistent with probable pneumonia. Clinical correlation is recommended. 2. Worsening pleural effusions which are moderate in size on the right and small on the left. 3. Diffuse peripheral perfusion defects involving the kidneys suggestive of decreased renal function or possible interval development of bilateral pyelonephritis. Clinical correlation is recommended. 4. Gallbladder wall thickening and vicarious excretion of contrast via the gallbladder. Clinical correlation is recommended to rule out cholecystitis. 5. Interval development of ascites within the abdomen. 6. Thickening of the wall of the ascending colon raising possibility of colitis. Clinical correlation is recommended. Brian Burnett MD Last Impressions Chest X-Ray 06/29/17 0600 Signed Impressions: Service Date/Time: Thursday, June 29, 2017 04:28 - CONCLUSION: Stable chest x-ray with bibasilar opacities representing pleural effusions with associated volume loss and airspace consolidation. The overall pattern could be secondary to pulmonary edema. Stanislaw Galvez MD Brain MRI 06/27/17 0000 Signed Impressions: Service Date/Time: Tuesday, June 27, 2017 10:00 - CONCLUSION: 1. No acute intracranial abnormality. 2. Mild chronic small vessel ischemic change. Floyd Tiwari Jr., MD Head CT 06/24/17 1645 Signed Impressions: Service Date/Time: Saturday, June 24, 2017 18:00 - CONCLUSION: No acute disease. Brian Burnett MD Percutaneous Cholangiogram 06/24/17 0000 Signed Impressions: Service Date/Time: Saturday, June 24, 2017 20:36 - CONCLUSION: Uncomplicated percutaneous cholecystostomy as above. Lalo Wong MD Abdomen/Pelvis CT 06/24/17 0000 Signed Impressions: Service Date/Time: Saturday, June 24, 2017 18:05 - CONCLUSION: 1. Bibasilar patchy infiltrates (right worse than left) consistent with probable pneumonia. Clinical correlation is recommended. 2. Worsening pleural effusions which are moderate in size on the right and small on the left. 3. Diffuse peripheral perfusion defects involving the kidneys suggestive of decreased renal function or possible interval development of bilateral pyelonephritis. Clinical correlation is recommended. 4. Gallbladder wall thickening and vicarious excretion of contrast via the gallbladder. Clinical correlation is recommended to rule out cholecystitis. 5. Interval development of ascites within the abdomen. 6. Thickening of the wall of the ascending colon raising possibility of colitis. Clinical correlation is recommended. Brian Burnett MD Last Impressions Chest X-Ray 06/28/17 06 Signed Impressions: Service Date/Time: Wednesday, June 28, 2017 04:18 - CONCLUSION: Persistent left lower lobe consolidation and hazy opacities in the right mid/lower lung. Floyd Magallanes MD Brain MRI 06/27/17 0000 Signed Impressions: Service Date/Time: Tuesday, June 27, 2017 10:00 - CONCLUSION: 1. No acute intracranial abnormality. 2. Mild chronic small vessel ischemic change. Floyd Tiwari Jr., MD Head CT 06/24/17 1645 Signed Impressions: Service Date/Time: Saturday, June 24, 2017 18:00 - CONCLUSION: No acute disease. Brian Burnett MD Percutaneous Cholangiogram 06/24/17 0000 Signed Impressions: Service Date/Time: Saturday, June 24, 2017 20:36 - CONCLUSION: Uncomplicated percutaneous cholecystostomy as above. Lalo Wong MD Abdomen/Pelvis CT 06/24/17 0000 Signed Impressions: Service Date/Time: Saturday, June 24, 2017 18:05 - CONCLUSION: 1. Bibasilar patchy infiltrates (right worse than left) consistent with probable pneumonia. Clinical correlation is recommended. 2. Worsening pleural effusions which are moderate in size on the right and small on the left. 3. Diffuse peripheral perfusion defects involving the kidneys suggestive of decreased renal function or possible interval development of bilateral pyelonephritis. Clinical correlation is recommended. 4. Gallbladder wall thickening and vicarious excretion of contrast via the gallbladder. Clinical correlation is recommended to rule out cholecystitis. 5. Interval development of ascites within the abdomen. 6. Thickening of the wall of the ascending colon raising possibility of colitis. Clinical correlation is recommended. Brian Burnett MD Last Impressions Chest X-Ray 06/26/17 06 Signed Impressions: Service Date/Time: Monday, June 26, 2017 05:19 - CONCLUSION: Persistent consolidation in the lower lungs. Location of the gastric tube cannot be determined on this exam. Technical limitations. Floyd Magallanes MD Head CT 06/24/17 1645 Signed Impressions: Service Date/Time: Saturday, June 24, 2017 18:00 - CONCLUSION: No acute disease. Brian Burnett MD Percutaneous Cholangiogram 06/24/17 0000 Signed Impressions: Service Date/Time: Saturday, June 24, 2017 20:36 - CONCLUSION: Uncomplicated percutaneous cholecystostomy as above. Lalo Wong MD Abdomen/Pelvis CT 06/24/17 0000 Signed Impressions: Service Date/Time: Saturday, June 24, 2017 18:05 - CONCLUSION: 1. Bibasilar patchy infiltrates (right worse than left) consistent with probable pneumonia. Clinical correlation is recommended. 2. Worsening pleural effusions which are moderate in size on the right and small on the left. 3. Diffuse peripheral perfusion defects involving the kidneys suggestive of decreased renal function or possible interval development of bilateral pyelonephritis. Clinical correlation is recommended. 4. Gallbladder wall thickening and vicarious excretion of contrast via the gallbladder. Clinical correlation is recommended to rule out cholecystitis. 5. Interval development of ascites within the abdomen. 6. Thickening of the wall of the ascending colon raising possibility of colitis. Clinical correlation is recommended. Brian Burnett MD Objective Remarks GENERAL: 57-year-old female currently orotracheally intubated, responsive SKIN: Warm and dry. No rash. Well perfused HEAD: Atraumatic. Normocephalic. EYES: Pupils equal and round about 2 mm bilaterally and brisk. No scleral icterus. No injection or drainage. ENT: No nasal bleeding or discharge. Mucous membranes pink and moist. NECK: Trachea midline. No JVD. CARDIOVASCULAR: Irregular rhythm, rate currently low 100's. S1, S2. No S4. Without murmur RESPIRATORY: Miss breath sounds in the bases bilaterally. No wheezing GASTROINTESTINAL: Abdomen soft, tender to palpation in the right upper quadrant and epigastric region. Cholecystostomy tube draining. MUSCULOSKELETAL: Extremities with trace lower extremity peripheral edema. No obvious deformities. 1+ edema right upper extremity NEUROLOGICAL: Spontaneous eye opening .Positive corneal reflex. Positive gag and cough. Moves bilateral lower extremities, left upper extremity. Date of Insertion: Jun 24, 2017 Line: Central Venous Catheter Side: Right Location: Subclavian A/P Assessment and Plan Neuro/Psych: Acute encephalopathy likely toxic metabolic UDS positive for barbiturates Depression/anxiety Seizure questionable All sedation discontinued 07/03/17 Goal of RASS 0 Acetaminophen 650 mg by tube. every 6 hours as needed fever/pain CT brain 06/24 revealed no acute intracranial findings EEG 06/25 revealed right frontal lobe sharp activity indicative of epileptiform. Loaded with levetiracetam 1 g IV 1 on 06/26 followed by 500 mg IV twice daily. Repeat EEG 06/26 revealed continuous sharps in right frontal region Repeat EEG 06/28- no epileptiform activity Neurology- Dr. Shannon following 06/27 MRI brain-no acute intracranial abnormality Holding paroxetine unknown dosage daily home medication F/U Keppra level Dilantin level 3.8 07/04- Pt now visually tracking CV: Atrial fibrillation rate controlled History of atrial fibrillation currently in A. fib with RVR Hypertension Elevated BNP Lactic acidosis resolved Severe MR Severe TR Acute diastolic heart failure Tachybradycardia syndrome EKG reveals sinus bradycardia with first-degree AV block. Admission was A. fib with RVR. Amiodarone 200mg BID Cardiac markers troponin 0.05 2D echocardiogram revealed EF 45-50%. Decreased LV systolic function. Bilateral atrial enlargement. Severe MR and TR. Cardiology consult by [facility] with Dr. Jeffers EPS consult secondary to tachybradycardia syndrome-no intervention at this time 2/ clinical status CT surgery consulted to evaluate severe MR- Dr. Paul following-no intervention at this time / clinical status Lactate is cleared 3/2 CVP monitoring trend-discontinued 06/30 Lasix 40 mg IV daily Metoprolol 2.5 every 6 when necessary for heart rate greater than 100 Labetalol PRN for SBP > 160 Resp: Acute respiratory insufficiency Right lower lobe infiltrate/pleural effusion PRVC 18/500/1./ Ventilator bundle Albuterol/ipratropium aerosols every 6 hours with albuterol aerosols every 2 hours as needed for dyspnea Spontaneous breathing trials when clinically indicated / Chest x-ray - air space disease and pleural effusions 07/01 Continue CPAP trials ETT day 10 -possible consideration for tracheostomy in the near future, will discuss with family GI: Epigastric/right upper quadrant pain Gastroesophageal reflux disease Hyperammonia Cholelithiasis on ultrasound 06/23 possibly acute cholecystitis Hypoalbuminemia CT abdomen/pelvis 06/23 revealed a 1 mm gallstone. No signs of cholecystitis. Otherwise unremarkable CT abdomen/pelvis 06/24 revealed right greater than left pleural effusions. Gallbladder wall thickening with voracious dye excretion, descending colon edema and bilateral perinephric stranding Status post cholecystostomy tube by IR 06/24- (07/04 output 380cc) General surgery recommended continue cholecystostomy tube placement. Outpatient follow-up for cholecystectomy. Tube feeds Vital high at 55 cc/hour Repeat CT abdomen/pelvis with contrast if worsening symptomatology Previously patient has been on omeprazole 40 mg p.o. daily. Currently on pantoprazole 40 mg IV. daily for gastroesophageal reflux disease Docusate sodium/senna 1 tablet twice daily for bowel regimen Lactulose 30 cc daily for elevated ammonia. 07/03 ammonia level 10 GI consulted, Dr. Naqvi - S/P colonoscopy and endoscopy 06/30, upper endoscopy revealed medium-sized ulcer first part of duodenum, multiple small erosions gastric antrum. Colon- Normal mucosa : Ferguson catheter has been placed for accurate I's and O's and critical patient Endo: Acute hypoglycemia likely secondary to sepsis resolved Sliding-scale insulin Novulin R with Accu-Cheks every 4 hours to maintain euglycemia/low regimen TSH -1.76 Renal: Acute kidney injury- resolved Negative urine eosinophils and urine electrolytes likely prerenal indices by Janet No signs of hydronephrosis on CT abdomen/pelvis 06/23. Stranding noted around bilateral kidneys 06/24. Medical renal disease versus pyelonephritis Creatinine improved Heme: Microcytic hypochromic anemia Leukocytosis Resolved DIC Thrombocytopenia We will need iron studies and Hemoccult test done during this hospitalization Self-reported negative EGD/colonoscopy in the past per prior record Transfuse 1 unit PRBCs overnight. Will give 1 FFP and 1 cryo and 10 mg of vitamin K 06/27 Continue to monitor CBC 07/01 therapeutic Lovenox 80 mg twice a day ID: Severe sepsis likely gallbladder source plus/minus UA Thrush Started on ampicillin/tazobactam with vancomycin day #5 07/04 Oral Nystatin Pertinent cultures 06/25 -bile -no growth 06/25 -sputum -no growth 06/24 -blood cultures 4 -no growth 06/24 -urine -p no growth Urine Legionella pneumococcal antigens no growth Influenza negative MSK: PT evaluate and treat Daily functional maintenance Multi-Podus boots bilaterally FEN: Electrolyte derangement Replace electrolytes as clinically indicated per ICU electrolyte protocol F/U BMP Access -Right subclavian CVL day #10 placed 06/24. Continue -Right radial arterial line day #4 placed 06/24. Discontinued 3 Prophylaxis -GI -pantoprazole -DVT -SCDs Therapeutic lovenox BID Critical Care: Level 3 followup 06/27 Discussed with Yaneth Garcia. Discussed in detail neurological condition including seizure activity on EEG, imaging being performed, medication adjustments and neurology consultation. Discussed cholecystostomy tube in follow-up with general surgery most likely as an outpatient with current medical condition improves. Discussed with INSULATION BATTING MACHINE OPERATOR at bedside (Jenny) 07/04-plan palliative care team meeting with family members on Thursday 07/06, Patient now responding . Plan for a trial of extubation, as patient is now neurologically improving ,will await decisions regarding goals of care as patient would not want to be on mechanical ventilation. Continue CPAP trials. Physician Madeleine Crews MD Jul 04, 2017 08:45
[2017-07-04] MEDS: LABETALOL HCL 100 MG/20 ML VIAL IV PUSH PRN ×2 (08:53→18:21)
[2017-07-04] MEDS: VANCOMYCIN INJ 1,750 MG in SODIUM CHLORID 0.9% 500 ML INJ 500 ML IV SCH (09:42)
[2017-07-04] MEDS: NYSTATIN SUSP 500,000 U/5 ML CUP SWISH-SWAL SCH ×4 (12:07→20:12)
[2017-07-04] MEDS: POTASSIUM PHOSPHATE MONOBASIC 500 MG TAB PO PRN ×2 (12:07→17:10)
[2017-07-04] MEDS: ACETAMINOPHEN 650 MG/20.3 ML UDC NG PRN (17:46)
[2017-07-04] MEDS: PANTOPRAZOLE SODIUM 40 MG VIAL IV PUSH SCH (20:12)
[2017-07-04] MEDS: SODIUM CHLORIDE 0.9% FLUSH 10 ML FLUSH IV FLUSH PRN (20:13)
[2017-07-05] VITALS (22 sets, daily range): BP systolic 119–185; BP diastolic 60–96; PULSE 105–127; RESP 16–28; TEMP 98.8–99.5; O2SAT 97–100
[2017-07-05] MEDS: LABETALOL HCL 100 MG/20 ML VIAL IV PUSH PRN ×4 (00:28→15:45)
[2017-07-05] MEDS: RESP: ALBUTEROL 2.5 MG/IPRATROPIUM 0.5 MG NEB (SCH) NEB ×4 (03:33→19:34)
[2017-07-05] MEDS: RESP: ALBUTEROL 2.5 MG/3 ML NEB (PRN) INH (03:33)
[2017-07-05] MEDS: INSULIN NovoLIN REGULAR SUPPLEMENTAL SCALE SQ SCH ×5 (04:00→20:00)
[2017-07-05] MEDS: CHLORHEXIDINE GLUCONATE 2 % 1 PACK (2 CLOTHS) TOP SCH (04:00)
[2017-07-05] MEDS: PIPERACIL-TAZO 3.375 GM PREMIX 50 ML IV SCH ×4 (04:41→20:35)
[2017-07-05] MEDS: ARTIFICIAL TEARS OPTH SOLN 15 ML BTL EACH EYE SCH ×3 (04:43→20:36)
[2017-07-05] MEDS: METOPROLOL TARTRATE 5 MG/5 ML VIAL IV PUSH PRN ×2 (04:43→12:32)
[2017-07-05] MEDS: ENOXAPARIN SODIUM 80 MG/0.8 ML SYRINGE SQ SCH ×2 (05:29→17:25)
[2017-07-05] MEDS: FOSPHENYTOIN SODIUM 100 MG PE/2 ML VIAL IV SCH ×3 (05:29→20:36)
[2017-07-05 05:51] LABS: AUTOMATED NEUTROPHIL # 8.1 TH/MM3 (1.8-7.7); BASOPHIL # 0.1 TH/MM3 (0-0.2); BASOPHIL % 0.6 % (0.0-2.0); EOSINOPHIL # 0.3 TH/MM3 (0-0.4); EOSINOPHIL % 2.7 % (0.0-4.0); HEMATOCRIT 25.5 % (35.0-46.0); HEMOGLOBIN 7.7 GM/DL (11.6-15.3); LYMPH % 8.5 % (9.0-44.0); LYMPHOCYTE # 0.9 TH/MM3 (1.0-4.8); MEAN CELL VOLUME 71.6 FL (80.0-100.0); MEAN CORPUSCULAR HEMOGLOBIN 21.6 PG (27.0-34.0); MEAN CORPUSCULAR HGB CONC 30.1 % (32.0-36.0); MEAN PLATELET VOLUME 8.5 FL (7.0-11.0); MONO % 10.6 % (0.0-8.0); MONOCYTE # 1.1 TH/MM3 (0-0.9); NEUT % 77.6 % (16.0-70.0); PLATELET COUNT 141 TH/MM3 (150-450); RED BLOOD COUNT 3.56 MIL/MM3 (4.00-5.30); RED CELL DISTRIBUTION WIDTH 21.8 % (11.6-17.2); WHITE BLOOD COUNT 10.5 TH/MM3 (4.0-11.0)
[2017-07-05 06:08] LABS: BICARBONATE 25.9 MEQ/L (21.0-32.0); CALCIUM 9.1 MG/DL (8.5-10.1); CREATININE 0.73 MG/DL (0.50-1.00); MAGNESIUM 1.8 MG/DL (1.5-2.5)
[2017-07-05 06:10] LABS: PHOSPHORUS 3.1 MG/DL (2.5-4.9)
[2017-07-05] MEDS: POTASSIUM CHLOR 40 MEQ PREMIX 100 ML IV PRN (06:42)
[2017-07-05] MEDS: CHLORHEXIDINE 0.12% (ORAL KIT) 15 ML CUP MT SCH ×2 (08:16→20:38)
[2017-07-05] MEDS: SODIUM CHLORIDE 0.9% FLUSH 10 ML FLUSH IV FLUSH SCH ×2 (08:24→20:36)
[2017-07-05] MEDS: AMIODARONE 200 MG TAB PO SCH ×2 (08:25→20:35)
[2017-07-05] MEDS: FUROSEMIDE 40 MG/4 ML VIAL IV PUSH SCH (08:25)
[2017-07-05] MEDS: DOCUSATE SODIUM 50 MG/SENNA 8.6 MG TAB PO SCH ×2 (08:25→20:36)
[2017-07-05] MEDS: NYSTATIN SUSP 500,000 U/5 ML CUP SWISH-SWAL SCH ×4 (08:26→20:35)
[2017-07-05] MEDS: levETIRAcetam INJ 500 MG in SODIUM CHLORIDE 0.9% INJ 100 ML IV SCH ×2 (08:26→20:35)
[2017-07-05] MEDS ORDERED: PHARMACY ORDERED LAB ONE (08:45)
[2017-07-05] MEDS: VANCOMYCIN INJ 1,750 MG in SODIUM CHLORID 0.9% 500 ML INJ 500 ML IV SCH (08:48)
--- NOTE | 2017-07-05 10:24 | HHI.CCPN ---
Subjective Remarks/Hospital Course 57-year-old female. Date of admission 06/23/2017. Date of consultation 2017. Past medical history includes Patient originally presented to [facility] ED in atrial fibrillation with rapid ventricular response. Patient was initially started on a diltiazem drip and then was switched over to metoprolol tartrate 50 mg every 8 hours. After conversion, patient became bradycardic. CT abdomen/pelvis revealed a 1 mm gallstone without signs of cholecystitis. Otherwise unremarkable. The patient became more somnolent on the floor and bradycardic with heart rates as low as 42. EKG revealed sinus bradycardia with a first-degree AV block. Patient was arousable and with good pain in 1-2 word responses but fell asleep immediately. On examination patient did have pain especially in her right upper quadrant. CBC revealed hemoglobin 8.4. Ammonia level 35. BNP of 341. Remainder of laboratories are currently pending. Chest x-ray revealed right lower lobe infiltrate versus effusion. Patient did receive 60 mg total of furosemide within the past 24 hours. 3: Afebrile. Status post percutaneous cholecystostomy tube yesterday with aggressive crystalloid resuscitation. Currently resting in bed in no acute distress. Not on vasopressors. 32: Afebrile. A. fib with RVR overnight started on amiodarone drip. Digoxin 0.25 mg and diltiazem 10 mg given prior to initiation of amiodarone. Remains sedated on the ventilator. Possible seizure activity on EEG. Neurology is been counseled.. EPS cardiology and cardiothoracic surgery also been consulted for tachybradycardia syndrome and severe MR. Dr. Sterling/neurosurgeon is clear to trickle feeds today Subjective 3/3: Afebrile. EEG revealed continuous sharp spikes involving right frontal central region. Remains on levetiracetam at 500 mg every 12 hours. Noted possible switch to fosphenytoin per EEG report. Currently on propofol drip at 30 mcg/kg/min. Withdraws bilateral lower exams. Does not withdraw upper extremities currently. MRI brain currently pending. Tolerating trickle feeds at 10 cc an hour. 3: Repeat EEG pending today. Fosphenytoin added to medication regimen yesterday.No change in neurological assessment. Trickle feeds increased to 20 cc/hour with minimal residuals. 06/29: EEG repeated only showed slow waves possibly medication contributory. Patient previously on anticoagulation prior to admission and her to A. fib RVR, but due to concern for indeterminate source of anemia, GI consulted for recommendations and evaluation of risks/ benefits to initiate anticoagulation therapy. Patient continued to have pleural effusions Lasix IV dose 40 mg given. 06/30: Tolerated CPAP trials 2 hours, continues to be nonresponsive. Patient underwent EGD and colonoscopy colonoscopy was within normal limits. EGD revealed small erosions in the first part of the duodenum and a medium-sized ulcer. Recommended per GI to initiate/ resume anticoagulant therapy. Plan for every 12 hours H&H. 07/01: Patient remained on CPAP trials for approximately 2 hours. Patient remains encephalopathic off sedation. Noted hemoglobin drop will continue to closely monitor as therapeutic anticoagulation was initiated yesterday. 07/02: Hemoglobin stable. Patient continues on CPAP with light sedation. With sedation vacation the patient still is not responding to commands, not tracking. EEG shows no epileptiform activity. Patient will require tracheostomy and PEG placement consideration in the near future .Palliative care has been consulted. 07/03: Afebrile. Sedation has been completely discontinued, patient's opens eyes spontaneously movement of lower extremities to pain,but not on command. Patient continues on CPAP for greater than 24 hours. Plan discussion of to define goals of care with family per palliative care team. ET . 07/04: Tmax 100.0. The patient is now tracking visually, and following some commands ,sedation discontinued greater than 48 hours. Noted chest x-ray improvement. Continues on CPAP Extensive discussion with son this a.m. via telephone( Kenneth Walker), patient would not desire a tracheostomy, long-term mechanical ventilation or PEG. Tentative plan for Thursday for patient's 4 children to meet with palliative care to define goals of care. Discussion regarding blood products, patient is to receive blood products if needed. Per patient's family the patient attends a " [employer]" congregation, but is not a baptized [employer] witness, and continue transfusion of blood products if needed. 07/05: Hemoglobin remained stable. Patient awake and alert responding with yes and no questions. Following commands. Plan for trial of extubation in a.m., after discussion /(with family and palliative care team. Potassium level 3.2., Repletion KCL with 80 meq this a.m.. Objective Vital Signs Date Time Temp Pulse Resp B/P (MAP) Pulse Ox O2 Delivery O2 Flow Rate FiO2 07/05/17 09:43 100 30 07/05/17 06:00 118 07/05/17 04:35 17 119/63 (81) 07/05/17 00:00 98.9 Intake and Output 07/05/17 07/05/17 07/06/17 08:00 16:00 00:00 Intake Total 663 ml Output Total 950 ml Balance -287 ml Result Diagram: 07/05/17 0515 07/05/17 0515 Imaging Last Impressions Chest X-Ray 07/03/17 0600 Signed Impressions: Service Date/Time: Monday, July 03, 2017 05:06 - CONCLUSION: Decreasing bibasilar consolidation and very small effusions. Stanislaw Ryan MD Brain MRI 06/27/17 0000 Signed Impressions: Service Date/Time: Tuesday, June 27, 2017 10:00 - CONCLUSION: 1. No acute intracranial abnormality. 2. Mild chronic small vessel ischemic change. Floyd Tiwari Jr., MD Head CT 06/24/17 1645 Signed Impressions: Service Date/Time: Saturday, June 24, 2017 18:00 - CONCLUSION: No acute disease. Brian Burnett MD Percutaneous Cholangiogram 06/24/17 0000 Signed Impressions: Service Date/Time: Saturday, June 24, 2017 20:36 - CONCLUSION: Uncomplicated percutaneous cholecystostomy as above. Lalo Wong MD Abdomen/Pelvis CT 06/24/17 0000 Signed Impressions: Service Date/Time: Saturday, June 24, 2017 18:05 - CONCLUSION: 1. Bibasilar patchy infiltrates (right worse than left) consistent with probable pneumonia. Clinical correlation is recommended. 2. Worsening pleural effusions which are moderate in size on the right and small on the left. 3. Diffuse peripheral perfusion defects involving the kidneys suggestive of decreased renal function or possible interval development of bilateral pyelonephritis. Clinical correlation is recommended. 4. Gallbladder wall thickening and vicarious excretion of contrast via the gallbladder. Clinical correlation is recommended to rule out cholecystitis. 5. Interval development of ascites within the abdomen. 6. Thickening of the wall of the ascending colon raising possibility of colitis. Clinical correlation is recommended. Brian Burnett MD Last Impressions Chest X-Ray 07/01/17 06 Signed Impressions: Service Date/Time: Saturday, July 01, 2017 03:51 - CONCLUSION: Stable chest x-ray with moderate sized bilateral opacities likely representing pleural effusions with associated volume loss and/or airspace consolidation. Stanislaw Galvez MD Brain MRI 06/27/17 Signed Impressions: Service Date/Time: Tuesday, June 27, 2017 10:00 - CONCLUSION: 1. No acute intracranial abnormality. 2. Mild chronic small vessel ischemic change. Floyd Tiwari Jr., MD Head CT 06/24/17 1645 Signed Impressions: Service Date/Time: Saturday, June 24, 2017 18:00 - CONCLUSION: No acute disease. Brian Burnett MD Percutaneous Cholangiogram 06/24/17 Signed Impressions: Service Date/Time: Saturday, June 24, 2017 20:36 - CONCLUSION: Uncomplicated percutaneous cholecystostomy as above. Lalo Wong MD Abdomen/Pelvis CT 06/24/17 Signed Impressions: Service Date/Time: Saturday, June 24, 2017 18:05 - CONCLUSION: 1. Bibasilar patchy infiltrates (right worse than left) consistent with probable pneumonia. Clinical correlation is recommended. 2. Worsening pleural effusions which are moderate in size on the right and small on the left. 3. Diffuse peripheral perfusion defects involving the kidneys suggestive of decreased renal function or possible interval development of bilateral pyelonephritis. Clinical correlation is recommended. 4. Gallbladder wall thickening and vicarious excretion of contrast via the gallbladder. Clinical correlation is recommended to rule out cholecystitis. 5. Interval development of ascites within the abdomen. 6. Thickening of the wall of the ascending colon raising possibility of colitis. Clinical correlation is recommended. Brian Burnett MD Last Impressions Chest X-Ray 06/30/17 06 Signed Impressions: Service Date/Time: Friday, June 30, 2017 05:14 - CONCLUSION: 1. Persistent moderate-sized bibasilar opacities representing pleural effusions with associated volume loss and/or airspace consolidation. 2. There are new more focal patchy airspace opacities in the left upper lung zone. Stanislaw Galvez MD Brain MRI 06/27/17 Signed Impressions: Service Date/Time: Tuesday, June 27, 2017 10:00 - CONCLUSION: 1. No acute intracranial abnormality. 2. Mild chronic small vessel ischemic change. Floyd Tiwari Jr., MD Head CT 06/24/17 1645 Signed Impressions: Service Date/Time: Saturday, June 24, 2017 18:00 - CONCLUSION: No acute disease. Brian Burnett MD Percutaneous Cholangiogram 06/24/17 0000 Signed Impressions: Service Date/Time: Saturday, June 24, 2017 20:36 - CONCLUSION: Uncomplicated percutaneous cholecystostomy as above. Lalo Wong MD Abdomen/Pelvis CT 06/24/17 0000 Signed Impressions: Service Date/Time: Saturday, June 24, 2017 18:05 - CONCLUSION: 1. Bibasilar patchy infiltrates (right worse than left) consistent with probable pneumonia. Clinical correlation is recommended. 2. Worsening pleural effusions which are moderate in size on the right and small on the left. 3. Diffuse peripheral perfusion defects involving the kidneys suggestive of decreased renal function or possible interval development of bilateral pyelonephritis. Clinical correlation is recommended. 4. Gallbladder wall thickening and vicarious excretion of contrast via the gallbladder. Clinical correlation is recommended to rule out cholecystitis. 5. Interval development of ascites within the abdomen. 6. Thickening of the wall of the ascending colon raising possibility of colitis. Clinical correlation is recommended. Brian Burnett MD Last Impressions Chest X-Ray 06/29/17 0600 Signed Impressions: Service Date/Time: Thursday, June 29, 2017 04:28 - CONCLUSION: Stable chest x-ray with bibasilar opacities representing pleural effusions with associated volume loss and airspace consolidation. The overall pattern could be secondary to pulmonary edema. Stanislaw Galvez MD Brain MRI 06/27/17 0000 Signed Impressions: Service Date/Time: Tuesday, June 27, 2017 10:00 - CONCLUSION: 1. No acute intracranial abnormality. 2. Mild chronic small vessel ischemic change. Floyd Tiwari Jr., MD Head CT 06/24/17 1645 Signed Impressions: Service Date/Time: Saturday, June 24, 2017 18:00 - CONCLUSION: No acute disease. rBian Burnett MD Percutaneous Cholangiogram 06/24/17 0000 Signed Impressions: Service Date/Time: Saturday, June 24, 2017 20:36 - CONCLUSION: Uncomplicated percutaneous cholecystostomy as above. Lalo Wong MD Abdomen/Pelvis CT 06/24/17 0000 Signed Impressions: Service Date/Time: Saturday, June 24, 2017 18:05 - CONCLUSION: 1. Bibasilar patchy infiltrates (right worse than left) consistent with probable pneumonia. Clinical correlation is recommended. 2. Worsening pleural effusions which are moderate in size on the right and small on the left. 3. Diffuse peripheral perfusion defects involving the kidneys suggestive of decreased renal function or possible interval development of bilateral pyelonephritis. Clinical correlation is recommended. 4. Gallbladder wall thickening and vicarious excretion of contrast via the gallbladder. Clinical correlation is recommended to rule out cholecystitis. 5. Interval development of ascites within the abdomen. 6. Thickening of the wall of the ascending colon raising possibility of colitis. Clinical correlation is recommended. Brian Burnett MD Last Impressions Chest X-Ray 06/28/17 0600 Signed Impressions: Service Date/Time: Wednesday, June 28, 2017 04:18 - CONCLUSION: Persistent left lower lobe consolidation and hazy opacities in the right mid/lower lung. Floyd Magallanes MD Brain MRI 06/27/17 0000 Signed Impressions: Service Date/Time: Tuesday, June 27, 2017 10:00 - CONCLUSION: 1. No acute intracranial abnormality. 2. Mild chronic small vessel ischemic change. Floyd Tiwari Jr., MD Head CT 06/24/17 1645 Signed Impressions: Service Date/Time: Saturday, June 24, 2017 18:00 - CONCLUSION: No acute disease. Brian Burnett MD Percutaneous Cholangiogram 06/24/17 0000 Signed Impressions: Service Date/Time: Saturday, June 24, 2017 20:36 - CONCLUSION: Uncomplicated percutaneous cholecystostomy as above. Lalo Wong MD Abdomen/Pelvis CT 06/24/17 0000 Signed Impressions: Service Date/Time: Saturday, June 24, 2017 18:05 - CONCLUSION: 1. Bibasilar patchy infiltrates (right worse than left) consistent with probable pneumonia. Clinical correlation is recommended. 2. Worsening pleural effusions which are moderate in size on the right and small on the left. 3. Diffuse peripheral perfusion defects involving the kidneys suggestive of decreased renal function or possible interval development of bilateral pyelonephritis. Clinical correlation is recommended. 4. Gallbladder wall thickening and vicarious excretion of contrast via the gallbladder. Clinical correlation is recommended to rule out cholecystitis. 5. Interval development of ascites within the abdomen. 6. Thickening of the wall of the ascending colon raising possibility of colitis. Clinical correlation is recommended. Brian Burnett MD Last Impressions Chest X-Ray 06/26/17 0600 Signed Impressions: Service Date/Time: Monday, June 26, 2017 05:19 - CONCLUSION: Persistent consolidation in the lower lungs. Location of the gastric tube cannot be determined on this exam. Technical limitations. Floyd Magallanes MD Head CT 06/24/17 1645 Signed Impressions: Service Date/Time: Saturday, June 24, 2017 18:00 - CONCLUSION: No acute disease. Brian Burnett MD Percutaneous Cholangiogram 06/24/17 0000 Signed Impressions: Service Date/Time: Saturday, June 24, 2017 20:36 - CONCLUSION: Uncomplicated percutaneous cholecystostomy as above. Lalo Wong MD Abdomen/Pelvis CT 06/24/17 0000 Signed Impressions: Service Date/Time: Saturday, June 24, 2017 18:05 - CONCLUSION: 1. Bibasilar patchy infiltrates (right worse than left) consistent with probable pneumonia. Clinical correlation is recommended. 2. Worsening pleural effusions which are moderate in size on the right and small on the left. 3. Diffuse peripheral perfusion defects involving the kidneys suggestive of decreased renal function or possible interval development of bilateral pyelonephritis. Clinical correlation is recommended. 4. Gallbladder wall thickening and vicarious excretion of contrast via the gallbladder. Clinical correlation is recommended to rule out cholecystitis. 5. Interval development of ascites within the abdomen. 6. Thickening of the wall of the ascending colon raising possibility of colitis. Clinical correlation is recommended. Brian Burnett MD Objective Remarks GENERAL: 57-year-old female currently orotracheally intubated, responsive SKIN: Warm and dry. No rash. Well perfused HEAD: Atraumatic. Normocephalic. EYES: Pupils equal and round about 2 mm bilaterally and brisk. No scleral icterus. No injection or drainage. ENT: No nasal bleeding or discharge. Mucous membranes pink and moist. NECK: Trachea midline. No JVD. CARDIOVASCULAR: Irregular rhythm, rate currently low 100's. S1, S2. No S4. Without murmur RESPIRATORY: Miss breath sounds in the bases bilaterally. No wheezing GASTROINTESTINAL: Abdomen soft, tender to palpation in the right upper quadrant and epigastric region. Cholecystostomy tube draining. MUSCULOSKELETAL: Extremities with trace lower extremity peripheral edema. No obvious deformities. 1+ edema right upper extremity NEUROLOGICAL: Spontaneous eye opening .Positive corneal reflex. Positive gag and cough. Moves bilateral lower extremities, left upper extremity. Date of Insertion: Jun 24, 2017 Line: Central Venous Catheter Side: Right Location: Subclavian A/P Assessment and Plan Neuro/Psych: Acute encephalopathy likely toxic metabolic UDS positive for barbiturates Depression/anxiety Seizure questionable All sedation discontinued 07/03/17 Goal of RASS 0 Acetaminophen 650 mg by tube. every 6 hours as needed fever/pain CT brain 06/24 revealed no acute intracranial findings EEG 06/25 revealed right frontal lobe sharp activity indicative of epileptiform. Loaded with levetiracetam 1 g IV 1 on 06/26 followed by 500 mg IV twice daily. Repeat EEG 06/26 revealed continuous sharps in right frontal region Repeat EEG 06/28- no epileptiform activity Neurology- Dr. Shannon following 06/27 MRI brain-no acute intracranial abnormality Holding paroxetine unknown dosage daily home medication 07/03 Keppra level 15 .9 -therapeutic Dilantin level 3.8-subtherapeutic 07/05-awake and following commands CV: Atrial fibrillation rate controlled History of atrial fibrillation currently in A. fib with RVR Hypertension Elevated BNP Lactic acidosis resolved Severe MR Severe TR Acute diastolic heart failure Tachybradycardia syndrome EKG reveals sinus bradycardia with first-degree AV block. Admission was A. fib with RVR. Amiodarone 200mg BID Cardiac markers troponin 0.05 2D echocardiogram revealed EF 45-50%. Decreased LV systolic function. Bilateral atrial enlargement. Severe MR and TR. Cardiology consult by [facility] with Dr. Jeffers EPS consult secondary to tachybradycardia syndrome-no intervention at this time 2/[address] surgery consulted to evaluate severe MR- Dr. Palu following-no intervention at this time 2/2 clinical status Lactate is cleared / CVP monitoring trend-discontinued 06/30 Lasix 40 mg IV daily Metoprolol 2.5 every 6 when necessary for heart rate greater than 100 Labetalol PRN for SBP > 160 Resp: Acute respiratory insufficiency Right lower lobe infiltrate/pleural effusion PRVC 18/500/1.1/40 Ventilator bundle Albuterol/ipratropium aerosols every 6 hours with albuterol aerosols every 2 hours as needed for dyspnea Spontaneous breathing trials when clinically indicated 06/28 Chest x-ray - air space disease and pleural effusions 07/01 Continue CPAP trials ETT day -possible consideration for tracheostomy in the near future, will discuss with family. Plan for trial of extubation 07/06 GI: Epigastric/right upper quadrant pain Gastroesophageal reflux disease Hyperammonia Cholelithiasis on ultrasound 06/23 possibly acute cholecystitis Hypoalbuminemia CT abdomen/pelvis 06/23 revealed a 1 mm gallstone. No signs of cholecystitis. Otherwise unremarkable CT abdomen/pelvis 06/24 revealed right greater than left pleural effusions. Gallbladder wall thickening with voracious dye excretion, descending colon edema and bilateral perinephric stranding Status post cholecystostomy tube by IR 06/24- (07/04 output 380cc) General surgery recommended continue cholecystostomy tube placement. Outpatient follow-up for cholecystectomy. Tube feeds Vital high at 55 cc/hour Repeat CT abdomen/pelvis with contrast if worsening symptomatology Previously patient has been on omeprazole 40 mg p.o. daily. Currently on pantoprazole 40 mg IV. daily for gastroesophageal reflux disease Docusate sodium/senna 1 tablet twice daily for bowel regimen Lactulose 30 cc daily for elevated ammonia. 07/03 ammonia level 10 GI consulted, Dr. Naqvi - S/P colonoscopy and endoscopy 06/30, upper endoscopy revealed medium-sized ulcer first part of duodenum, multiple small erosions gastric antrum. Colon- Normal mucosa Vital High tube feeds at goal : Ferguson catheter has been placed for accurate I's and O's and critical patient Endo: Acute hypoglycemia likely secondary to sepsis resolved Sliding-scale insulin Novulin R with Accu-Cheks every 4 hours to maintain euglycemia/low regimen TSH -1.76 Renal: Acute kidney injury- resolved Negative urine eosinophils and urine electrolytes likely prerenal indices by Janet No signs of hydronephrosis on CT abdomen/pelvis 06/23. Stranding noted around bilateral kidneys 06/24. Medical renal disease versus pyelonephritis Creatinine improved Heme: Microcytic hypochromic anemia Leukocytosis Resolved DIC Thrombocytopenia We will need iron studies and Hemoccult test done during this hospitalization Self-reported negative EGD/colonoscopy in the past per prior record Transfuse 1 unit PRBCs overnight. Will give 1 FFP and 1 cryo and 10 mg of vitamin K 06/27 Continue to monitor CBC 07/01 therapeutic Lovenox 80 mg twice a day ID: Severe sepsis likely gallbladder source plus/minus UA Thrush Started on ampicillin/tazobactam with vancomycin day #5 07/04 Oral Nystatin Pertinent cultures 06/25 -bile -no growth 06/25 -sputum -no growth 06/24 -blood cultures 4 -no growth 06/24 -urine -p no growth Urine Legionella pneumococcal antigens no growth Influenza negative MSK: PT evaluate and treat Daily functional maintenance Multi-Podus boots bilaterally FEN: Electrolyte derangement Replace electrolytes as clinically indicated per ICU electrolyte protocol F/U BMP Access -Right subclavian CVL day #11 placed 06/24. Continue -Right radial arterial line day #4 placed 06/24. Discontinued 3 Prophylaxis -GI -pantoprazole -DVT -SCDs Therapeutic lovenox BID Critical Care: Level 3 followup 06/27 Discussed with Yaneth Garcia. Discussed in detail neurological condition including seizure activity on EEG, imaging being performed, medication adjustments and neurology consultation. Discussed cholecystostomy tube in follow-up with general surgery most likely as an outpatient with current medical condition improves. Discussed with ACCOUNT INFORMATION CLERK at bedside (Jenny) 07/04-plan palliative care team meeting with family members on Thursday 07/06, Patient now responding . Plan for a trial of extubation, as patient is now neurologically improving ,will await decisions regarding goals of care as patient would not want to be on mechanical ventilation. Continue CPAP trials. Plan for trial of extubation 07/06 Physician Madeleine Crews MD Jul 05, 2017 10:24
[2017-07-05] MEDS: ONDANSETRON HCL 4 MG/2 ML VIAL IV PUSH PRN (17:24)
[2017-07-05] MEDS: SODIUM CHLORIDE 0.9% FLUSH 10 ML FLUSH IV FLUSH PRN (20:36)
[2017-07-05] MEDS: PANTOPRAZOLE SODIUM 40 MG VIAL IV PUSH SCH (20:36)
[2017-07-05] MEDS ORDERED: VANCOMYCIN INJ 1,250 MG in SODIUM CHLOR 0.9% 250 ML INJ 250 ML IV SCH (21:00)
[2017-07-06] VITALS (20 sets, daily range): BP systolic 97–169; BP diastolic 55–88; PULSE 100–142; RESP 16–51; TEMP 98–101; O2SAT 96–100
[2017-07-06] MEDS: PIPERACIL-TAZO 3.375 GM PREMIX 50 ML IV SCH ×2 (02:24→10:18)
[2017-07-06 03:47] LABS: HEMATOCRIT 25.6 % (35.0-46.0); HEMOGLOBIN 7.8 GM/DL (11.6-15.3); MEAN CELL VOLUME 71.9 FL (80.0-100.0); MEAN CORPUSCULAR HEMOGLOBIN 21.8 PG (27.0-34.0); MEAN CORPUSCULAR HGB CONC 30.3 % (32.0-36.0); MEAN PLATELET VOLUME 9.3 FL (7.0-11.0); PLATELET COUNT 124 TH/MM3 (150-450); RED BLOOD COUNT 3.56 MIL/MM3 (4.00-5.30); RED CELL DISTRIBUTION WIDTH 22.1 % (11.6-17.2); WHITE BLOOD COUNT 9.6 TH/MM3 (4.0-11.0)
[2017-07-06] MEDS: RESP: ALBUTEROL 2.5 MG/IPRATROPIUM 0.5 MG NEB (SCH) NEB ×4 (03:52→20:55)
[2017-07-06] MEDS: CHLORHEXIDINE GLUCONATE 2 % 1 PACK (2 CLOTHS) TOP SCH (04:00)
[2017-07-06] MEDS: INSULIN NovoLIN REGULAR SUPPLEMENTAL SCALE SQ SCH ×6 (04:00→19:44)
[2017-07-06 04:03] LABS: BICARBONATE 29.2 MEQ/L (21.0-32.0); CALCIUM 9.4 MG/DL (8.5-10.1); CREATININE 0.76 MG/DL (0.50-1.00); MAGNESIUM 2.1 MG/DL (1.5-2.5); PHOSPHORUS 3.3 MG/DL (2.5-4.9)
[2017-07-06] MEDS: ARTIFICIAL TEARS OPTH SOLN 15 ML BTL EACH EYE SCH ×3 (04:30→19:57)
[2017-07-06] MEDS: LABETALOL HCL 100 MG/20 ML VIAL IV PUSH PRN (04:35)
[2017-07-06] MEDS: METOPROLOL TARTRATE 5 MG/5 ML VIAL IV PUSH PRN ×2 (04:35→11:26)
--- NOTE | 2017-07-06 05:22 | RADRPT ---
EXAM DATE/TIME: 07/06/2017 03:59 [place] COMPARISON: CHEST SINGLE AP, July 03, 2017, 5:06. INDICATIONS : Shortness of breath, possible pulmonary disease. MEDICAL HISTORY : Anemia SURGICAL HISTORY : Tubal ligation. ENCOUNTER: Subsequent ACUITY: 2 weeks PAIN SCORE: Non-responsive. LOCATION: Bilateral chest FINDINGS: A single portable frontal view of the chest shows development of a dense consolidation within the ret rocardiac aspects of the left lung base. This consolidation is more focal in nature and more dense th an on the prior study. Right basilar consolidation has resolved. No effusions. Heart normal size. Tip of the endotracheal tube 5 cm cephalad to the ricky. The nasogastric tube in the region of the body of the stomach. Right subclavian central line. CONCLUSION: Resolution of the right lower lobe infiltrate. More focal consolidation now seen involving the left l ower lobe. Floyd Tiwari Jr., MD on July 06, 2017 at 5:20 Board Certified Radiologist. This report was verified electronically.
[2017-07-06] MEDS: DOCUSATE SODIUM 50 MG/SENNA 8.6 MG TAB PO SCH ×2 (09:00→19:56)
--- NOTE | 2017-07-06 09:58 | HHI.CCPN ---
Subjective Remarks/Hospital Course 57-year-old female. Date of admission 06/23/2017. Date of consultation 2017. Past medical history includes Patient originally presented to [facility] [address] ED in atrial fibrillation with rapid ventricular response. Patient was initially started on a diltiazem drip and then was switched over to metoprolol tartrate 50 mg every 8 hours. After conversion, patient became bradycardic. CT abdomen/pelvis revealed a 1 mm gallstone without signs of cholecystitis. Otherwise unremarkable. The patient became more somnolent on the floor and bradycardic with heart rates as low as 42. EKG revealed sinus bradycardia with a first-degree AV block. Patient was arousable and with good pain in 1-2 word responses but fell asleep immediately. On examination patient did have pain especially in her right upper quadrant. CBC revealed hemoglobin 8.4. Ammonia level 35. BNP of 341. Remainder of laboratories are currently pending. Chest x-ray revealed right lower lobe infiltrate versus effusion. Patient did receive 60 mg total of furosemide within the past 24 hours. 3: Afebrile. Status post percutaneous cholecystostomy tube yesterday with aggressive crystalloid resuscitation. Currently resting in bed in no acute distress. Not on vasopressors. 32: Afebrile. A. fib with RVR overnight started on amiodarone drip. Digoxin 0.25 mg and diltiazem 10 mg given prior to initiation of amiodarone. Remains sedated on the ventilator. Possible seizure activity on EEG. Neurology is been counseled.. EPS cardiology and cardiothoracic surgery also been consulted for tachybradycardia syndrome and severe MR. Dr. Sterling/neurosurgeon is clear to trickle feeds today Subjective 3/3: Afebrile. EEG revealed continuous sharp spikes involving right frontal central region. Remains on levetiracetam at 500 mg every 12 hours. Noted possible switch to fosphenytoin per EEG report. Currently on propofol drip at 30 mcg/kg/min. Withdraws bilateral lower exams. Does not withdraw upper extremities currently. MRI brain currently pending. Tolerating trickle feeds at 10 cc an hour. 3: Repeat EEG pending today. Fosphenytoin added to medication regimen yesterday.No change in neurological assessment. Trickle feeds increased to 20 cc/hour with minimal residuals. 06/29: EEG repeated only showed slow waves possibly medication contributory. Patient previously on anticoagulation prior to admission and her to A. fib RVR, but due to concern for indeterminate source of anemia, GI consulted for recommendations and evaluation of risks/ benefits to initiate anticoagulation therapy. Patient continued to have pleural effusions Lasix IV dose 40 mg given. 06/30: Tolerated CPAP trials 2 hours, continues to be nonresponsive. Patient underwent EGD and colonoscopy colonoscopy was within normal limits. EGD revealed small erosions in the first part of the duodenum and a medium-sized ulcer. Recommended per GI to initiate/ resume anticoagulant therapy. Plan for every 12 hours H&H. 07/01: Patient remained on CPAP trials for approximately 2 hours. Patient remains encephalopathic off sedation. Noted hemoglobin drop will continue to closely monitor as therapeutic anticoagulation was initiated yesterday. 07/02: Hemoglobin stable. Patient continues on CPAP with light sedation. With sedation vacation the patient still is not responding to commands, not tracking. EEG shows no epileptiform activity. Patient will require tracheostomy and PEG placement consideration in the near future .Palliative care has been consulted. 07/03: Afebrile. Sedation has been completely discontinued, patient's opens eyes spontaneously movement of lower extremities to pain,but not on command. Patient continues on CPAP for greater than 24 hours. Plan discussion of to define goals of care with family per palliative care team. ET . 07/04: Tmax 100.0. The patient is now tracking visually, and following some commands ,sedation discontinued greater than 48 hours. Noted chest x-ray improvement. Continues on CPAP Extensive discussion with son this a.m. via telephone( Kenneth Walker), patient would not desire a tracheostomy, long-term mechanical ventilation or PEG. Tentative plan for Thursday for patient's 4 children to meet with palliative care to define goals of care. Discussion regarding blood products, patient is to receive blood products if needed. Per patient's family the patient attends a " [employer]" yazdanism, but is not a baptized Jehovah witness, and continue transfusion of blood products if needed. 07/05: Hemoglobin remained stable. Patient awake and alert responding with yes and no questions. Following commands. Plan for trial of extubation in a.m., after discussion /(with family and palliative care team. Potassium level 3.2., Repletion KCL with 80 meq this a.m.. 07/06 Patient remains on CPAP PS 10, PEEP:5 with FIO2 305. Awake, tolerating tube feeds. Afebrile. Objective Vital Signs Date Time Temp Pulse Resp B/P (MAP) Pulse Ox O2 Delivery O2 Flow Rate FiO2 07/06/17 08:07 100 30 07/06/17 05:00 105 18 129/62 (84) 07/06/17 04:30 98.8 Intake and Output 07/06/17 07/06/17 07/07/17 08:00 16:00 00:00 Intake Total 655 ml Output Total 1080 ml Balance -425 ml Result Diagram: 07/06/17 0255 07/06/17 0255 Other Results Last Impressions Chest X-Ray 07/06/17 0600 Signed Impressions: Service Date/Time: Thursday, July 06, 2017 03:59 - CONCLUSION: Resolution of the right lower lobe infiltrate. More focal consolidation now seen involving the left lower lobe. Floyd Tiwari Jr., MD Brain MRI 06/27/17 0000 Signed Impressions: Service Date/Time: Tuesday, June 27, 2017 10:00 - CONCLUSION: 1. No acute intracranial abnormality. 2. Mild chronic small vessel ischemic change. Floyd Tiwari Jr., MD Head CT 06/24/17 1645 Signed Impressions: Service Date/Time: Saturday, June 24, 2017 18:00 - CONCLUSION: No acute disease. Brian Burnett MD Percutaneous Cholangiogram 06/24/17 0000 Signed Impressions: Service Date/Time: Saturday, June 24, 2017 20:36 - CONCLUSION: Uncomplicated percutaneous cholecystostomy as above. Lalo Wong MD Abdomen/Pelvis CT 06/24/17 0000 Signed Impressions: Service Date/Time: Saturday, June 24, 2017 18:05 - CONCLUSION: 1. Bibasilar patchy infiltrates (right worse than left) consistent with probable pneumonia. Clinical correlation is recommended. 2. Worsening pleural effusions which are moderate in size on the right and small on the left. 3. Diffuse peripheral perfusion defects involving the kidneys suggestive of decreased renal function or possible interval development of bilateral pyelonephritis. Clinical correlation is recommended. 4. Gallbladder wall thickening and vicarious excretion of contrast via the gallbladder. Clinical correlation is recommended to rule out cholecystitis. 5. Interval development of ascites within the abdomen. 6. Thickening of the wall of the ascending colon raising possibility of colitis. Clinical correlation is recommended. Brian Burnett MD Imaging Last Impressions Chest X-Ray 07/03/17599 Signed Impressions: Service Date/Time: Monday, July 03, 2017 05:06 - CONCLUSION: Decreasing bibasilar consolidation and very small effusions. Stanislaw Ryan MD Brain MRI 06/27/17 Signed Impressions: Service Date/Time: Tuesday, June 27, 2017 10:00 - CONCLUSION: 1. No acute intracranial abnormality. 2. Mild chronic small vessel ischemic change. Floyd Tiwari Jr., MD Head CT 06/24/17 1645 Signed Impressions: Service Date/Time: Saturday, June 24, 2017 18:00 - CONCLUSION: No acute disease. Brian Burnett MD Percutaneous Cholangiogram 06/24/17 Signed Impressions: Service Date/Time: Saturday, June 24, 2017 20:36 - CONCLUSION: Uncomplicated percutaneous cholecystostomy as above. Lalo Wong MD Abdomen/Pelvis CT 06/24/17 Signed Impressions: Service Date/Time: Saturday, June 24, 2017 18:05 - CONCLUSION: 1. Bibasilar patchy infiltrates (right worse than left) consistent with probable pneumonia. Clinical correlation is recommended. 2. Worsening pleural effusions which are moderate in size on the right and small on the left. 3. Diffuse peripheral perfusion defects involving the kidneys suggestive of decreased renal function or possible interval development of bilateral pyelonephritis. Clinical correlation is recommended. 4. Gallbladder wall thickening and vicarious excretion of contrast via the gallbladder. Clinical correlation is recommended to rule out cholecystitis. 5. Interval development of ascites within the abdomen. 6. Thickening of the wall of the ascending colon raising possibility of colitis. Clinical correlation is recommended. Brian Burnett MD Last Impressions Chest X-Ray 07/01/17599 Signed Impressions: Service Date/Time: Saturday, July 01, 2017 03:51 - CONCLUSION: Stable chest x-ray with moderate sized bilateral opacities likely representing pleural effusions with associated volume loss and/or airspace consolidation. Stanislaw Galvez MD Brain MRI 06/27/17 Signed Impressions: Service Date/Time: Tuesday, June 27, 2017 10:00 - CONCLUSION: 1. No acute intracranial abnormality. 2. Mild chronic small vessel ischemic change. Floyd Tiwari Jr., MD Head CT 06/24/17 164 Signed Impressions: Service Date/Time: Saturday, June 24, 2017 18:00 - CONCLUSION: No acute disease. Brian Burnett MD Percutaneous Cholangiogram 06/24/17 0000 Signed Impressions: Service Date/Time: Saturday, June 24, 2017 20:36 - CONCLUSION: Uncomplicated percutaneous cholecystostomy as above. Lalo Wong MD Abdomen/Pelvis CT 06/24/17 0000 Signed Impressions: Service Date/Time: Saturday, June 24, 2017 18:05 - CONCLUSION: 1. Bibasilar patchy infiltrates (right worse than left) consistent with probable pneumonia. Clinical correlation is recommended. 2. Worsening pleural effusions which are moderate in size on the right and small on the left. 3. Diffuse peripheral perfusion defects involving the kidneys suggestive of decreased renal function or possible interval development of bilateral pyelonephritis. Clinical correlation is recommended. 4. Gallbladder wall thickening and vicarious excretion of contrast via the gallbladder. Clinical correlation is recommended to rule out cholecystitis. 5. Interval development of ascites within the abdomen. 6. Thickening of the wall of the ascending colon raising possibility of colitis. Clinical correlation is recommended. Brian Burnett MD Last Impressions Chest X-Ray 06/30/17 0600 Signed Impressions: Service Date/Time: Friday, June 30, 2017 05:14 - CONCLUSION: 1. Persistent moderate-sized bibasilar opacities representing pleural effusions with associated volume loss and/or airspace consolidation. 2. There are new more focal patchy airspace opacities in the left upper lung zone. Stanislaw Galvez MD Brain MRI 06/27/17 0000 Signed Impressions: Service Date/Time: Tuesday, June 27, 2017 10:00 - CONCLUSION: 1. No acute intracranial abnormality. 2. Mild chronic small vessel ischemic change. Floyd Tiwari Jr., MD Head CT 06/24/175 Signed Impressions: Service Date/Time: Saturday, June 24, 2017 18:00 - CONCLUSION: No acute disease. Brian Burnett MD Percutaneous Cholangiogram 06/24/17 0000 Signed Impressions: Service Date/Time: Saturday, June 24, 2017 20:36 - CONCLUSION: Uncomplicated percutaneous cholecystostomy as above. Lalo Wong MD Abdomen/Pelvis CT 06/24/17 0000 Signed Impressions: Service Date/Time: Saturday, June 24, 2017 18:05 - CONCLUSION: 1. Bibasilar patchy infiltrates (right worse than left) consistent with probable pneumonia. Clinical correlation is recommended. 2. Worsening pleural effusions which are moderate in size on the right and small on the left. 3. Diffuse peripheral perfusion defects involving the kidneys suggestive of decreased renal function or possible interval development of bilateral pyelonephritis. Clinical correlation is recommended. 4. Gallbladder wall thickening and vicarious excretion of contrast via the gallbladder. Clinical correlation is recommended to rule out cholecystitis. 5. Interval development of ascites within the abdomen. 6. Thickening of the wall of the ascending colon raising possibility of colitis. Clinical correlation is recommended. Brian Burnett MD Last Impressions Chest X-Ray 06/29/17 0600 Signed Impressions: Service Date/Time: Thursday, June 29, 2017 04:28 - CONCLUSION: Stable chest x-ray with bibasilar opacities representing pleural effusions with associated volume loss and airspace consolidation. The overall pattern could be secondary to pulmonary edema. Stanislaw Galvez MD Brain MRI 06/27/17 0000 Signed Impressions: Service Date/Time: Tuesday, June 27, 2017 10:00 - CONCLUSION: 1. No acute intracranial abnormality. 2. Mild chronic small vessel ischemic change. Floyd Tiwari Jr., MD Head CT 06/24/17 1645 Signed Impressions: Service Date/Time: Saturday, June 24, 2017 18:00 - CONCLUSION: No acute disease. Brian Burnett MD Percutaneous Cholangiogram 06/24/17 0000 Signed Impressions: Service Date/Time: Saturday, June 24, 2017 20:36 - CONCLUSION: Uncomplicated percutaneous cholecystostomy as above. Lalo Wong MD Abdomen/Pelvis CT 06/24/17 0000 Signed Impressions: Service Date/Time: Saturday, June 24, 2017 18:05 - CONCLUSION: 1. Bibasilar patchy infiltrates (right worse than left) consistent with probable pneumonia. Clinical correlation is recommended. 2. Worsening pleural effusions which are moderate in size on the right and small on the left. 3. Diffuse peripheral perfusion defects involving the kidneys suggestive of decreased renal function or possible interval development of bilateral pyelonephritis. Clinical correlation is recommended. 4. Gallbladder wall thickening and vicarious excretion of contrast via the gallbladder. Clinical correlation is recommended to rule out cholecystitis. 5. Interval development of ascites within the abdomen. 6. Thickening of the wall of the ascending colon raising possibility of colitis. Clinical correlation is recommended. Brian Burnett MD Last Impressions Chest X-Ray 06/28/17 0600 Signed Impressions: Service Date/Time: Wednesday, June 28, 2017 04:18 - CONCLUSION: Persistent left lower lobe consolidation and hazy opacities in the right mid/lower lung. Floyd Magallanes MD Brain MRI 06/27/17 0000 Signed Impressions: Service Date/Time: Tuesday, June 27, 2017 10:00 - CONCLUSION: 1. No acute intracranial abnormality. 2. Mild chronic small vessel ischemic change. Floyd Tiwari Jr., MD Head CT 06/24/17 1645 Signed Impressions: Service Date/Time: Saturday, June 24, 2017 18:00 - CONCLUSION: No acute disease. Brian Burnett MD Percutaneous Cholangiogram 06/24/17 0000 Signed Impressions: Service Date/Time: Saturday, June 24, 2017 20:36 - CONCLUSION: Uncomplicated percutaneous cholecystostomy as above. Lalo Wong MD Abdomen/Pelvis CT 06/24/17 0000 Signed Impressions: Service Date/Time: Saturday, June 24, 2017 18:05 - CONCLUSION: 1. Bibasilar patchy infiltrates (right worse than left) consistent with probable pneumonia. Clinical correlation is recommended. 2. Worsening pleural effusions which are moderate in size on the right and small on the left. 3. Diffuse peripheral perfusion defects involving the kidneys suggestive of decreased renal function or possible interval development of bilateral pyelonephritis. Clinical correlation is recommended. 4. Gallbladder wall thickening and vicarious excretion of contrast via the gallbladder. Clinical correlation is recommended to rule out cholecystitis. 5. Interval development of ascites within the abdomen. 6. Thickening of the wall of the ascending colon raising possibility of colitis. Clinical correlation is recommended. Brian Burnett MD Last Impressions Chest X-Ray 06/26/17 0600 Signed Impressions: Service Date/Time: Monday, June 26, 2017 05:19 - CONCLUSION: Persistent consolidation in the lower lungs. Location of the gastric tube cannot be determined on this exam. Technical limitations. Floyd Magallanes MD Head CT 06/24/17 1645 Signed Impressions: Service Date/Time: Saturday, June 24, 2017 18:00 - CONCLUSION: No acute disease. Brian Burnett MD Percutaneous Cholangiogram 06/24/17 0000 Signed Impressions: Service Date/Time: Saturday, June 24, 2017 20:36 - CONCLUSION: Uncomplicated percutaneous cholecystostomy as above. Lalo Wong MD Abdomen/Pelvis CT 06/24/17 0000 Signed Impressions: Service Date/Time: Saturday, June 24, 2017 18:05 - CONCLUSION: 1. Bibasilar patchy infiltrates (right worse than left) consistent with probable pneumonia. Clinical correlation is recommended. 2. Worsening pleural effusions which are moderate in size on the right and small on the left. 3. Diffuse peripheral perfusion defects involving the kidneys suggestive of decreased renal function or possible interval development of bilateral pyelonephritis. Clinical correlation is recommended. 4. Gallbladder wall thickening and vicarious excretion of contrast via the gallbladder. Clinical correlation is recommended to rule out cholecystitis. 5. Interval development of ascites within the abdomen. 6. Thickening of the wall of the ascending colon raising possibility of colitis. Clinical correlation is recommended. Brian Burnett MD Objective Remarks GENERAL: 57-year-old female currently orotracheally intubated, responsive SKIN: Warm and dry. No rash. Well perfused HEAD: Atraumatic. Normocephalic. EYES: Pupils equal and round about 2 mm bilaterally and brisk. No scleral icterus. No injection or drainage. ENT: No nasal bleeding or discharge. Mucous membranes pink and moist. NECK: Trachea midline. No JVD. CARDIOVASCULAR: Irregular rhythm, rate currently low 100's. S1, S2. No S4. Without murmur RESPIRATORY: Miss breath sounds in the bases bilaterally. No wheezing GASTROINTESTINAL: Abdomen soft, tender to palpation in the right upper quadrant and epigastric region. Cholecystostomy tube draining. MUSCULOSKELETAL: Extremities with trace lower extremity peripheral edema. No obvious deformities. 1+ edema right upper extremity NEUROLOGICAL: Spontaneous eye opening .Positive corneal reflex. Positive gag and cough. Moves bilateral lower extremities, left upper extremity. Date of Insertion: Jun 24, 2017 Line: Central Venous Catheter Side: Right Location: Subclavian A/P Assessment and Plan Neuro/Psych: Acute encephalopathy likely toxic metabolic UDS positive for barbiturates Depression/anxiety Seizure questionable All sedation discontinued 07/03/17 Goal of RASS 0 Acetaminophen 650 mg by tube. every 6 hours as needed fever/pain CT brain 06/24 revealed no acute intracranial findings EEG 06/25 revealed right frontal lobe sharp activity indicative of epileptiform. Loaded with levetiracetam 1 g IV 1 on 06/26 followed by 500 mg IV twice daily. Repeat EEG 06/26 revealed continuous sharps in right frontal region Repeat EEG 06/28- no epileptiform activity Neurology- Dr. Shannon following 06/27 MRI brain-no acute intracranial abnormality Continue Dilantin 100mg Q8 and Keppra per Neuro CV: Atrial fibrillation rate controlled History of atrial fibrillation currently in A. fib with RVR Hypertension Elevated BNP Lactic acidosis resolved Severe MR Severe TR Acute diastolic heart failure Tachybradycardia syndrome Amiodarone 200mg BID, place on Lopressor 50mg Q12 2D echocardiogram revealed EF 45-50%. Decreased LV systolic function. Bilateral atrial enlargement. Severe MR and TR. Cardiology is following EPS consult secondary to tachybradycardia syndrome-no intervention at this time 05/[address] surgery consulted to evaluate severe MR- Dr. Paul following-no intervention at this time 05/29 clinical status Lactate is cleared 06/26 Lasix 40 mg IV daily Labetalol PRN for SBP > 160 Resp: Acute respiratory insufficiency Right lower lobe infiltrate/pleural effusion On CPAP PS 10, PEEP:5 with 30% FIO2. Ventilator bundle Albuterol/ipratropium aerosols every 6 hours with albuterol aerosols every 2 hours as needed for dyspnea for possible extubation today CXR today- Resolution of the right lower lobe infiltrate. focal consolidation now seen involving the left lower lobe. GI: Gastroesophageal reflux disease Hyperammonia Cholelithiasis on ultrasound 06/23 possibly acute cholecystitis Hypoalbuminemia CT abdomen/pelvis 06/23 revealed a 1 mm gallstone. No signs of cholecystitis. Otherwise unremarkable CT abdomen/pelvis 06/24 revealed right greater than left pleural effusions. Gallbladder wall thickening with voracious dye excretion, descending colon edema and bilateral perinephric stranding Status post cholecystostomy tube by IR 06/24- General surgery recommended continue cholecystostomy tube placement. Outpatient follow-up for cholecystectomy. Tube feeds Vital high at 55 cc/hour on pantoprazole 40 mg IV. daily for gastroesophageal reflux disease Docusate sodium/senna 1 tablet twice daily for bowel regimen GI consulted, Dr. Naqvi - S/P colonoscopy and endoscopy 06/30, upper endoscopy revealed medium-sized ulcer first part of duodenum, multiple small erosions gastric antrum. Colon- Normal mucosa : Monitor renal function, electrolyets replacement per protocol. On Lasix 40mg daily Endo: Sliding-scale insulin Novulin R with Accu-Cheks every 4 hours to maintain euglycemia/low regimen TSH -1.76 Heme: Microcytic hypochromic anemia Leukocytosis Resolved DIC Thrombocytopenia Monitor CBC Transfuse 1 unit PRBCs 32. 1 FFP and 1 cryo and 10 mg of vitamin K 06/27 Continue to monitor CBC ID: Severe sepsis likely gallbladder source plus/minus UA Thrush Patient has been on Zosyn since 06/14 and Vanco since 06/30- All cultires are negative. No fever or leukocytosis Will d/c abx and observe off abx. 07/04 Oral Nystatin Pertinent cultures 06/25 -bile -no growth 06/25 -sputum -no growth 06/24 -blood cultures 4 -no growth 06/24 -urine -p no growth Urine Legionella pneumococcal antigens no growth Influenza negative MSK: PT evaluate and treat Daily functional maintenance Multi-Podus boots bilaterally Access -Right subclavian CVL day #11 placed 06/24. d/c central line and place peripheral IV's Prophylaxis -GI -pantoprazole -DVT -SCDs Therapeutic lovenox BID Palliative care is following Level 2 Marci Latif MD Jul 06, 2017 09:58
[2017-07-06] MEDS: levETIRAcetam INJ 500 MG in SODIUM CHLORIDE 0.9% INJ 100 ML IV SCH ×2 (10:16→19:51)
[2017-07-06] MEDS: NYSTATIN SUSP 500,000 U/5 ML CUP SWISH-SWAL SCH ×4 (10:17→19:57)
[2017-07-06] MEDS: AMIODARONE 200 MG TAB PO SCH ×2 (10:17→19:56)
[2017-07-06] MEDS: FUROSEMIDE 40 MG/4 ML VIAL IV PUSH SCH (10:17)
[2017-07-06] MEDS: SODIUM CHLORIDE 0.9% FLUSH 10 ML FLUSH IV FLUSH SCH ×2 (10:18→19:52)
--- NOTE | 2017-07-06 10:53 | HHI.HCPN ---
Reason for visit a. To assist with evaluation and management of symptoms including: dyspnea. pain b. To assist medical decision maker(s) with: better understanding of current medical conditions; weighing benefits/burdens of medical treatment options; making medical treatment decisions. Subjective/Interval History Call from Son Kenneth prior to my arrival to pt unit regarding setting up family meeting for today-- plan to meet w pt family around 4pm today to discuss goals of treatment Planned for CPAP trials today. CXR w some improvement RLL, consolidation LLL. H& H low, stable 7.8/25.6. Pt medically extubated 10am this am. S/p ST eval, pt w very weak cough, not able to complete exam, recommends cont NPO. 1200 later in afternoon with tachycardia, s/p metoprolol,cardizem, critical care following, still at at rate 140-150s at time of my exam. 1520 Pt seen in room no visitors present, she is awake, off mech vent. Very hoarse resp sounds. O2 sats 98%. HR 150. does not verbalize for me . Intermittently follows some commands w extremities. Intermittently tracks examiner. Does not nod to questions. Says "ow" w abdominal exam. . 1600 family arrived, met w family. d/w critical care,primary nurse. . Family/friend interactions Met w son Billy, dtr Yaneth (via conf call) , and daughter Charisse, diana Cooper , dtr in law, in person x 40 min discussed: -- reviewed legal dec makers, they are all working together as a family but would want Kenneth to serve as spokesperson as he is local -- review of hospital course, conditions, tx in place, prognosis/poss trajectory going forward. review high risk for further complications/setbacks -- review Code status, family feels she would NOT want prolonged ventilation, trach or to remain dependent/debilitated, but feel she would want to remain full code for now, they will talk further as a family and notify palliative or nursing if change in tx plan desired - will cont to provide ongoing updates/review of goals as clinical course evolves . Advance Directives Living Will: Never completed Health Care Surrogate: Never completed Durable Power of Household Coordinator: Never completed Objective Vital Signs Date Time Temp Pulse Resp B/P (MAP) Pulse Ox O2 Delivery O2 Flow Rate FiO2 07/06/17 08:07 100 30 3/12/18 08:00 100 07/06/17 05:00 105 18 129/62 (84) 100 07/06/17 04:30 98.8 102 18 125/59 (81) 100 07/06/17 04:30 100 30 07/06/17 04:00 100 07/06/17 04:00 30 07/06/17 03:00 103 16 117/55 (75) 100 07/06/17 02:00 118 51 169/77 (107) 99 07/06/17 02:00 111 07/06/17 01:56 100 30 07/06/17 01:00 115 24 148/79 (102) 100 07/06/17 00:00 30 07/06/17 00:00 99.7 124 27 100 07/06/17 00:00 124 07/05/17 23:00 120 28 157/76 (103) 100 07/05/17 22:00 127 25 155/73 (100) 100 07/05/17 22:00 120 07/05/17 21:00 121 22 141/61 (87) 100 07/05/17 20:00 30 07/05/17 20:00 113 07/05/17 20:00 99.5 118 16 155/70 (98) 100 07/05/17 19:29 100 30 07/05/17 18:00 109 07/05/17 16:00 30 07/05/17 16:00 99.1 127 25 154/93 (113) 97 07/05/17 16:00 127 07/05/17 15:52 100 30 07/05/17 14:00 109 07/05/17 12:48 100 30 07/05/17 12:00 105 07/05/17 12:00 98.8 105 21 126/60 (82) 100 07/05/17 12:00 30 Intake & Output 07/06/17 07/06/17 07:00 19:00 Intake Total 1075 ml Output Total 1080 ml Balance -5 ml Intake Oral 0 ml IV Total 420 ml Tube Feeding 555 ml Other 100 ml Output Urine Total 900 ml Drainage Total 180 ml # Bowel Movements 1 Physical Exam 1520 CONSTITUTIONAL/GENERAL: This is an adequately nourished patient, awake, extubated on NC TUBES/LINES/DRAINS: RT SC central line, arguello catheter, soft wrist restraints. NC o2. SKIN: No jaundice, rashes, or lesions. Skin warm/dry NECK: Trachea midline. Supple, nontender. No palpable thyroid enlargement or nodularity. CARDIOVASCULAR: Irregular rate and rhythm without murmur, tachy rate 140-150s. Peripheral pulses symmetric. RESPIRATORY/CHEST: Symmetric, unlabored respirations.Mildly tachypneic. Clear to auscultation. Breath sounds equal bilaterally. + hoarse upper airway breathing sounds. GASTROINTESTINAL: Abdomen soft, +tender, nondistended. No palpable masses. Bowel sounds present.Drain from rt side sm amt brownish yellow present GENITOURINARY: Without palpable bladder distension. Arguello catheter in place. NEUROLOGICAL: Awake and alert. nonverbal. does not nod to questions, does not appear oriented. Intermittently follow simple commands. Intermittently tracks examiner. moving 4 extremities spontaneously. PSYCHIATRIC: No obvious anxiety/depression- limited assessment due to clinical condition Diagnostic Tests Laboratory Laboratory Tests Test 07/03/17 11:10 07/04/17 03:00 07/04/17 12:10 07/05/17 05:15 Blood Urea Nitrogen 12 MG/DL (7-18) 11 MG/DL (7-18) 11 MG/DL (7-18) Creatinine 0.77 MG/DL (0.50-1.00) 0.71 MG/DL (0.50-1.00) 0.73 MG/DL (0.50-1.00) Random Glucose 105 MG/DL (74-106) 133 MG/DL (74-106) 124 MG/DL (74-106) Calcium Level 8.9 MG/DL (8.5-10.1) 9.0 MG/DL (8.5-10.1) 9.1 MG/DL (8.5-10.1) Sodium Level 140 MEQ/L (136-145) 142 MEQ/L (136-145) 142 MEQ/L (136-145) Potassium Level 2.8 MEQ/L (3.5-5.1) 3.3 MEQ/L (3.5-5.1) 3.6 MEQ/L (3.5-5.1) 3.2 MEQ/L (3.5-5.1) Chloride Level 101 MEQ/L (98-107) 107 MEQ/L (98-107) 107 MEQ/L (98-107) Carbon Dioxide Level 29.2 MEQ/L (21.0-32.0) 28.2 MEQ/L (21.0-32.0) 25.9 MEQ/L (21.0-32.0) Anion Gap 10 MEQ/L (5-15) 7 MEQ/L (5-15) 9 MEQ/L (5-15) Estimat Glomerular Filtration Rate 77 ML/MIN (>89) 84 ML/MIN (>89) 82 ML/MIN (>89) Phenytoin (Dilantin) Level 3.8 MCG/ML (10.0-20.0) Levetiracetam (Keppra) Level 15.2 mcg/mL (12.0 - 46.0) White Blood Count 9.9 TH/MM3 (4.0-11.0) 10.5 TH/MM3 (4.0-11.0) Red Blood Count 3.75 MIL/MM3 (4.00-5.30) 3.56 MIL/MM3 (4.00-5.30) Hemoglobin 8.2 GM/DL (11.6-15.3) 7.7 GM/DL (11.6-15.3) Hematocrit 26.8 % (35.0-46.0) 25.5 % (35.0-46.0) Mean Corpuscular Volume 71.3 FL (80.0-100.0) 71.6 FL (80.0-100.0) Mean Corpuscular Hemoglobin 21.8 PG (27.0-34.0) 21.6 PG (27.0-34.0) Mean Corpuscular Hemoglobin Concent 30.6 % (32.0-36.0) 30.1 % (32.0-36.0) Red Cell Distribution Width 21.4 % (11.6-17.2) 21.8 % (11.6-17.2) Platelet Count 140 TH/MM3 (150-450) 141 TH/MM3 (150-450) Mean Platelet Volume 8.3 FL (7.0-11.0) 8.5 FL (7.0-11.0) Phosphorus Level 2.4 MG/DL (2.5-4.9) 3.1 MG/DL (2.5-4.9) Magnesium Level 2.0 MG/DL (1.5-2.5) 1.8 MG/DL (1.5-2.5) Neutrophils (%) (Auto) 77.6 % (16.0-70.0) Lymphocytes (%) (Auto) 8.5 % (9.0-44.0) Monocytes (%) (Auto) 10.6 % (0.0-8.0) Eosinophils (%) (Auto) 2.7 % (0.0-4.0) Basophils (%) (Auto) 0.6 % (0.0-2.0) Neutrophils # (Auto) 8.1 TH/MM3 (1.8-7.7) Lymphocytes # (Auto) 0.9 TH/MM3 (1.0-4.8) Monocytes # (Auto) 1.1 TH/MM3 (0-0.9) Eosinophils # (Auto) 0.3 TH/MM3 (0-0.4) Basophils # (Auto) 0.1 TH/MM3 (0-0.2) CBC Comment DIFF FINAL Differential Comment Test 07/05/17 08:45 07/05/17 16:20 07/06/17 02:55 07/06/17 05:20 Vancomycin Level Trough 9.3 MCG/ML (5.0-10.0) Potassium Level 3.6 MEQ/L (3.5-5.1) 3.7 MEQ/L (3.5-5.1) White Blood Count 9.6 TH/MM3 (4.0-11.0) Red Blood Count 3.56 MIL/MM3 (4.00-5.30) Hemoglobin 7.8 GM/DL (11.6-15.3) Hematocrit 25.6 % (35.0-46.0) Mean Corpuscular Volume 71.9 FL (80.0-100.0) Mean Corpuscular Hemoglobin 21.8 PG (27.0-34.0) Mean Corpuscular Hemoglobin Concent 30.3 % (32.0-36.0) Red Cell Distribution Width 22.1 % (11.6-17.2) Platelet Count 124 TH/MM3 (150-450) Mean Platelet Volume 9.3 FL (7.0-11.0) Blood Urea Nitrogen 15 MG/DL (7-18) Creatinine 0.76 MG/DL (0.50-1.00) Random Glucose 125 MG/DL (74-106) Calcium Level 9.4 MG/DL (8.5-10.1) Phosphorus Level 3.3 MG/DL (2.5-4.9) Magnesium Level 2.1 MG/DL (1.5-2.5) Sodium Level 143 MEQ/L (136-145) Chloride Level 107 MEQ/L (98-107) Carbon Dioxide Level 29.2 MEQ/L (21.0-32.0) Anion Gap 7 MEQ/L (5-15) Estimat Glomerular Filtration Rate 78 ML/MIN (>89) Blood Gas Puncture Site LT RADIAL Blood Gas Patient Temperature 98.6 Blood Gas HCO3 26 mmol/L (22-26) Blood Gas Base Excess 1.5 mmol/L (-2-2) Blood Gas Oxygen Saturation 95 % (90-100) Arterial Blood pH 7.42 (7.380-7.420) Arterial Blood Partial Pressure CO2 40 mmHg (38-42) Arterial Blood Partial Pressure O2 102 mmHg (61-120) Arterial Blood Oxygen Content 10.7 Vol % (12.0-20.0) Arterial Blood Carboxyhemoglobin 1.8 % (0-4) Arterial Blood Methemoglobin 1.1 % (0-2) Blood Gas Hemoglobin 7.8 G/DL (12.0-16.0) Oxygen Delivery Device VENT Blood Gas Ventilator Setting SEE COMMENTS Blood Gas Inspired Oxygen 30 % Result Diagram: 07/06/1725407/06/175 Microbiology Microbiology Date/Time Source Procedure Growth Status 06/24/17 20:19 Blood Peripheral Aerobic Blood Culture - Final NO GROWTH IN 5 DAYS Complete 06/24/17 20:19 Blood Peripheral Anaerobic Blood Culture - Final NO GROWTH IN 5 DAYS Complete 06/25/17 08:00 Fluid Bile Fluid Gram Stain - Final Complete 06/25/17 08:00 Fluid Bile Fluid Body Fluid Culture - Final NO GROWTH IN 72 HRS.--AEROBICALLY OR ... Complete 06/25/17 00:54 Sputum Expectorated Sputum Gram Stain - Final Complete 06/25/17 00:54 Sputum Expectorated Sputum Sputum Culture - Final HEAVY GROWTH NORMAL RESPIRATORY DELIO Complete 06/25/17 01:25 Urine Catheterized Urine Legionella Antigen - Final PRESUMPTIVE NEGATIVE FOR LEGIONELLA P... Complete 06/25/17 01:25 Urine Catheterized Urine Streptococcus pneumoniae Antigen (M - Final PRESUMPTIVE NEGATIVE FOR STREPTOCOCCU... Complete Imaging Last Impressions Chest X-Ray 07/06/17 0600 Signed Impressions: Service Date/Time: Thursday, July 06, 2017 03:59 - CONCLUSION: Resolution of the right lower lobe infiltrate. More focal consolidation now seen involving the left lower lobe. Floyd Tiwari Jr., MD Brain MRI 06/27/17 0000 Signed Impressions: Service Date/Time: Tuesday, June 27, 2017 10:00 - CONCLUSION: 1. No acute intracranial abnormality. 2. Mild chronic small vessel ischemic change. Floyd Tiwari Jr., MD Head CT 06/24/17 1645 Signed Impressions: Service Date/Time: Saturday, June 24, 2017 18:00 - CONCLUSION: No acute disease. Brian Burnett MD Percutaneous Cholangiogram 06/24/17 0000 Signed Impressions: Service Date/Time: Saturday, June 24, 2017 20:36 - CONCLUSION: Uncomplicated percutaneous cholecystostomy as above. Lalo Wong MD Abdomen/Pelvis CT 06/24/17 0000 Signed Impressions: Service Date/Time: Saturday, June 24, 2017 18:05 - CONCLUSION: 1. Bibasilar patchy infiltrates (right worse than left) consistent with probable pneumonia. Clinical correlation is recommended. 2. Worsening pleural effusions which are moderate in size on the right and small on the left. 3. Diffuse peripheral perfusion defects involving the kidneys suggestive of decreased renal function or possible interval development of bilateral pyelonephritis. Clinical correlation is recommended. 4. Gallbladder wall thickening and vicarious excretion of contrast via the gallbladder. Clinical correlation is recommended to rule out cholecystitis. 5. Interval development of ascites within the abdomen. 6. Thickening of the wall of the ascending colon raising possibility of colitis. Clinical correlation is recommended. 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 Spiritual:none listed. Legal:Pt is . Currently has 4 children Billy Mcqueen, Kenneth [phone] Yaneth; [phone] Health care proxy are the 4 children. Ethical issues impacting care:none Important Contacts Son: Kenneth [phone] dtr Yaneth [phone]. dtr Charisse son Billy [phone] . Prognosis 57 year old prognosis is guarded. Code Status: Full Code Plan ==Code: FULL CODE == Decision maker- pt currently does not capacity to make medical decisions.pt is . No advance directives. [place] proxy would be pt's four children: Kenneth, Yaneth, Charisse, and Billy. == symptoms: pain- acute cholecystitis, now bedbound. +abd tender to exam. Cautious use opiates 2/ AMS/encephalopathy,recent medical extubation. dyspnea- on mechanical ventilation--> medically extubated 07/06, tolerating room air. CXR some improvement RLL, +consolidation LLL. encephalopathy- hx ? seizures. ? toxic metabolic encephalopathy.ammonia 07/03 =10. 3 confused, not consistently following commands == goals of care: goals for now aggressive, family feels she would NOT want prolonged ventilation, trach or to remain dependent/debilitated, but feel she would want to remain full code for now, they will talk further as a family and notify palliative or nursing if change in tx plan desired palliative will cont to provide ongoing updates/review of goals as clinical course evolves == palliative care will follow to make recommendations for symptoms and to review goals of care as pt's condition evolves. Attestation To help prompt me to consider important information that might be impacting today's encounter and assessment, information from prior notes written by myself or my colleagues may have been "brought forward" into today's note. My signature on this note, however, is an attestation that I personally performed the exam, history, and/or decision-making noted today, and, unless otherwise indicated, the interactions with patient, family, and staff as well as the review of records all occurred today. I also attest that the listed assessment and stated plan reflect my best clinical judgment today based on the combination of historical information, prior notes, and today's exam/ interactions. When time spent is documented, it refers only to time spent today by the signer, or if indicated, combined time spent today by collaborating physician/nurse practitioner. Idalia Riggs Jul 06, 2017 10:53
[2017-07-06] MEDS ORDERED: DILTIAZEM HCL 25 MG/5 ML VIAL IV ONE ×2 (12:45→16:00)
[2017-07-06] MEDS: FOSPHENYTOIN SODIUM 100 MG PE/2 ML VIAL IV SCH ×2 (14:00→19:57)
[2017-07-06] MEDS: METOPROLOL TARTRATE 50 MG TAB PO SCH ×2 (14:45→19:56)
--- NOTE | 2017-07-06 16:10 | HHI.PR ---
Subjective Remarks no sz's eeg has been w/o sz activity on pht and lev extubated hr elevated Objective Vital Signs Date Time Temp Pulse Resp B/P (MAP) Pulse Ox O2 Delivery O2 Flow Rate FiO2 07/06/17 10:00 96 Nasal Cannula 2 28 07/06/17 10:00 100 07/06/17 08:07 100 30 07/06/17 08:00 100 07/06/17 08:00 98.2 106 22 164/74 (104) 100 07/06/17 08:00 30 07/06/17 05:00 105 18 129/62 (84) 100 07/06/17 04:30 98.8 102 18 125/59 (81) 100 07/06/17 04:30 100 30 07/06/17 04:00 100 07/06/17 04:00 30 07/06/17 03:00 103 16 117/55 (75) 100 07/06/17 02:00 118 51 169/77 (107) 99 07/06/17 02:00 111 07/06/17 01:56 100 30 07/06/17 01:00 115 24 148/79 (102) 100 07/06/17 00:00 30 07/06/17 00:00 99.7 124 27 100 07/06/17 00:00 124 07/05/17 23:00 120 28 157/76 (103) 100 07/05/17 22:00 127 25 155/73 (100) 100 07/05/17 22:00 120 07/05/17 21:00 121 22 141/61 (87) 100 07/05/17 20:00 30 07/05/17 20:00 113 07/05/17 20:00 99.5 118 16 155/70 (98) 100 07/05/17 19:29 100 30 07/05/17 18:00 109 I/O 07/05/17 07/05/17 07/05/17 07/06/17 07/06/17 07/06/17 07:00 15:00 23:00 07:00 15:00 23:00 Intake Total 663 ml 667.5 ml 1075 ml 655 ml Output Total 950 ml 1920 ml 1080 ml Balance -287 ml 667.5 ml -845 ml -425 ml Intake Oral 0 ml 0 ml IV Total 50 ml 667.5 ml 470 ml Tube Feeding 513 ml 525 ml 555 ml Other 100 ml 80 ml 100 ml Output Urine Total 750 ml 1750 ml 900 ml Drainage Total 200 ml 170 ml 180 ml # Bowel Movements 2 1 Result Diagram: 07/06/1725407/06/17254 Objective Remarks awake tries to follow commands w/extremities very hoarsed unable to speak clearly moves all 4 extremities. Assessment and Plan Assessment and Plan s/p sz cont lev and pht sz precautions cont care per other consultants and as per family wishes-palliative on board. Stephanie Shannon MD Jul 06, 2017 16:10
[2017-07-06] MEDS ORDERED: PROPOFOL 500 MG/50 ML INJ 50 ML ONE (17:04)
[2017-07-06] MEDS ORDERED: ETOMIDATE 40 MG/20 ML VIAL ONE (17:05)
[2017-07-06] MEDS: fentaNYL DRIP 250 ML IV PRN (17:43)
--- NOTE | 2017-07-06 17:47 | RADRPT ---
EXAM DATE/TIME: 07/06/2017 17:35 [facility] COMPARISON: No previous studies available for comparison. INDICATIONS : Post intubation. MEDICAL HISTORY : Anemia. SURGICAL HISTORY : Tubal ligation. ENCOUNTER: Subsequent ACUITY: 2 weeks PAIN SCORE: Non-responsive. LOCATION: Bilateral chest FINDINGS: An endotracheal tube is noted and the distal tip extends to the level of the clavicles. Right subclav matteo line tip overlies the SVC. Heart size is upper limits normal. There is patchy left basilar airspa ce disease. Osseous structures are intact. There is atelectasis at the left base. Enteric tube course s beneath the diaphragm. CONCLUSION: Right subclavian line, endotracheal tube noted as above. Geovany Rouse MD on July 06, 2017 at 17:44 Board Certified Radiologist. This report was verified electronically.
[2017-07-06] MEDS: methylPREDNISolone SOD SUCC 40 MG/1 ML VIAL IV PUSH SCH (18:00)
[2017-07-06] MEDS: PROPOFOL 1000 MG/100 ML INJ 100 ML IV PRN (18:23)
[2017-07-06] MEDS: ENOXAPARIN SODIUM 80 MG/0.8 ML SYRINGE SQ SCH (18:28)
[2017-07-06] MEDS: PANTOPRAZOLE SODIUM 40 MG VIAL IV PUSH SCH (19:51)
[2017-07-06] MEDS: ACETAMINOPHEN 650 MG/20.3 ML UDC NG PRN (19:52)
[2017-07-06] MEDS ORDERED: PHARMACY ORDERED LAB ONE (20:45)
[2017-07-06] MEDS ORDERED: DILTIAZEM HCL 25 MG/5 ML VIAL IV PUSH ONE (21:30)
[2017-07-06] MEDS ORDERED: DILTIAZEM INJ 125 MG in SODIUM CHLORIDE 0.9% INJ 100 ML IV PRN (21:30)
[2017-07-07] VITALS (19 sets, daily range): BP systolic 98–149; BP diastolic 52–77; PULSE 80–124; RESP 18–19; TEMP 98.4–99.8; O2SAT 100
[2017-07-07] MEDS: methylPREDNISolone SOD SUCC 40 MG/1 ML VIAL IV PUSH SCH ×3 (00:10→13:36)
[2017-07-07] MEDS: RESP: ALBUTEROL 2.5 MG/IPRATROPIUM 0.5 MG NEB (SCH) NEB ×3 (03:39→15:18)
[2017-07-07] MEDS: CHLORHEXIDINE GLUCONATE 2 % 1 PACK (2 CLOTHS) TOP SCH (04:00)
[2017-07-07] MEDS: INSULIN NovoLIN REGULAR SUPPLEMENTAL SCALE SQ SCH ×7 (04:00→23:57)
[2017-07-07] MEDS: FOSPHENYTOIN SODIUM 100 MG PE/2 ML VIAL IV SCH ×3 (05:30→20:15)
[2017-07-07] MEDS: ENOXAPARIN SODIUM 80 MG/0.8 ML SYRINGE SQ SCH (05:30)
[2017-07-07] MEDS: ARTIFICIAL TEARS OPTH SOLN 15 ML BTL EACH EYE SCH ×3 (05:31→20:17)
[2017-07-07 06:29] LABS: AUTOMATED NEUTROPHIL # 8.9 TH/MM3 (1.8-7.7); BASOPHIL # 0.1 TH/MM3 (0-0.2); BASOPHIL % 0.6 % (0.0-2.0); HEMATOCRIT 26.3 % (35.0-46.0); HEMOGLOBIN 8.1 GM/DL (11.6-15.3); LYMPH % 7.5 % (9.0-44.0); LYMPHOCYTE # 0.8 TH/MM3 (1.0-4.8); MEAN CELL VOLUME 71.9 FL (80.0-100.0); MEAN CORPUSCULAR HEMOGLOBIN 22.1 PG (27.0-34.0); MEAN CORPUSCULAR HGB CONC 30.8 % (32.0-36.0); MEAN PLATELET VOLUME 8.9 FL (7.0-11.0); MONO % 5.9 % (0.0-8.0); MONOCYTE # 0.6 TH/MM3 (0-0.9); PLATELET COUNT 177 TH/MM3 (150-450); RED BLOOD COUNT 3.65 MIL/MM3 (4.00-5.30); RED CELL DISTRIBUTION WIDTH 22.1 % (11.6-17.2); WHITE BLOOD COUNT 10.4 TH/MM3 (4.0-11.0)
[2017-07-07 07:19] LABS: BICARBONATE 26.1 MEQ/L (21.0-32.0); CALCIUM 10.6 MG/DL (8.5-10.1); CREATININE 1.85 MG/DL (0.50-1.00); MAGNESIUM 2.2 MG/DL (1.5-2.5)
[2017-07-07] MEDS: CHLORHEXIDINE 0.12% (ORAL KIT) 15 ML CUP MT SCH ×3 (08:00→20:00)
[2017-07-07] MEDS: PROPOFOL 1000 MG/100 ML INJ 100 ML IV PRN ×2 (08:06→20:18)
[2017-07-07] MEDS ORDERED: Vancomycin Consult Pharmacy 1 EA OTHER SCH ×2 (08:45→11:00)
[2017-07-07] MEDS: METOPROLOL TARTRATE 50 MG TAB PO SCH ×2 (09:07→20:16)
[2017-07-07] MEDS: levETIRAcetam INJ 500 MG in SODIUM CHLORIDE 0.9% INJ 100 ML IV SCH ×2 (09:07→20:16)
[2017-07-07] MEDS: DOCUSATE SODIUM 50 MG/SENNA 8.6 MG TAB PO SCH ×2 (09:07→20:15)
[2017-07-07] MEDS: NYSTATIN SUSP 500,000 U/5 ML CUP SWISH-SWAL SCH ×4 (09:07→20:17)
[2017-07-07] MEDS: AMIODARONE 200 MG TAB PO SCH ×2 (09:07→20:15)
[2017-07-07] MEDS: SODIUM CHLORIDE 0.9% FLUSH 10 ML FLUSH IV FLUSH SCH ×2 (09:08→20:16)
--- NOTE | 2017-07-07 09:11 | HHI.CCPN ---
Subjective Remarks/Hospital Course 57-year-old female. Date of admission 06/23/2017. Date of consultation 2017. Past medical history includes Patient originally presented to [facility] ED in atrial fibrillation with rapid ventricular response. Patient was initially started on a diltiazem drip and then was switched over to metoprolol tartrate 50 mg every 8 hours. After conversion, patient became bradycardic. CT abdomen/pelvis revealed a 1 mm gallstone without signs of cholecystitis. Otherwise unremarkable. The patient became more somnolent on the floor and bradycardic with heart rates as low as 42. EKG revealed sinus bradycardia with a first-degree AV block. Patient was arousable and with good pain in 1-2 word responses but fell asleep immediately. On examination patient did have pain especially in her right upper quadrant. CBC revealed hemoglobin 8.4. Ammonia level 35. BNP of 341. Remainder of laboratories are currently pending. Chest x-ray revealed right lower lobe infiltrate versus effusion. Patient did receive 60 mg total of furosemide within the past 24 hours. 3: Afebrile. Status post percutaneous cholecystostomy tube yesterday with aggressive crystalloid resuscitation. Currently resting in bed in no acute distress. Not on vasopressors. 32: Afebrile. A. fib with RVR overnight started on amiodarone drip. Digoxin 0.25 mg and diltiazem 10 mg given prior to initiation of amiodarone. Remains sedated on the ventilator. Possible seizure activity on EEG. Neurology is been counseled.. EPS cardiology and cardiothoracic surgery also been consulted for tachybradycardia syndrome and severe MR. Dr. Sterling/neurosurgeon is clear to trickle feeds today Subjective 3/3: Afebrile. EEG revealed continuous sharp spikes involving right frontal central region. Remains on levetiracetam at 500 mg every 12 hours. Noted possible switch to fosphenytoin per EEG report. Currently on propofol drip at 30 mcg/kg/min. Withdraws bilateral lower exams. Does not withdraw upper extremities currently. MRI brain currently pending. Tolerating trickle feeds at 10 cc an hour. 3: Repeat EEG pending today. Fosphenytoin added to medication regimen yesterday.No change in neurological assessment. Trickle feeds increased to 20 cc/hour with minimal residuals. 06/29: EEG repeated only showed slow waves possibly medication contributory. Patient previously on anticoagulation prior to admission and her to A. fib RVR, but due to concern for indeterminate source of anemia, GI consulted for recommendations and evaluation of risks/ benefits to initiate anticoagulation therapy. Patient continued to have pleural effusions Lasix IV dose 40 mg given. 06/30: Tolerated CPAP trials 2 hours, continues to be nonresponsive. Patient underwent EGD and colonoscopy colonoscopy was within normal limits. EGD revealed small erosions in the first part of the duodenum and a medium-sized ulcer. Recommended per GI to initiate/ resume anticoagulant therapy. Plan for every 12 hours H&H. 07/01: Patient remained on CPAP trials for approximately 2 hours. Patient remains encephalopathic off sedation. Noted hemoglobin drop will continue to closely monitor as therapeutic anticoagulation was initiated yesterday. 07/02: Hemoglobin stable. Patient continues on CPAP with light sedation. With sedation vacation the patient still is not responding to commands, not tracking. EEG shows no epileptiform activity. Patient will require tracheostomy and PEG placement consideration in the near future .Palliative care has been consulted. 07/03: Afebrile. Sedation has been completely discontinued, patient's opens eyes spontaneously movement of lower extremities to pain,but not on command. Patient continues on CPAP for greater than 24 hours. Plan discussion of to define goals of care with family per palliative care team. ET . 07/04: Tmax 100.0. The patient is now tracking visually, and following some commands ,sedation discontinued greater than 48 hours. Noted chest x-ray improvement. Continues on CPAP Extensive discussion with son this a.m. via telephone( Kenneth Walker), patient would not desire a tracheostomy, long-term mechanical ventilation or PEG. Tentative plan for Thursday for patient's 4 children to meet with palliative care to define goals of care. Discussion regarding blood products, patient is to receive blood products if needed. Per patient's family the patient attends a " [employer], but is not a baptized Jehov[employer] witness, and continue transfusion of blood products if needed. 07/05: Hemoglobin remained stable. Patient awake and alert responding with yes and no questions. Following commands. Plan for trial of extubation in a.m., after discussion /(with family and palliative care team. Potassium level 3.2., Repletion KCL with 80 meq this a.m.. 07/06 Patient remains on CPAP PS 10, PEEP:5 with FIO2 305. Awake, tolerating tube feeds. Afebrile. 07/07 Patient was extubated yesterday morning however she was reintubated approx 1700 for resp failure and noted to have stridor, she was placed on Cardizem drip overnight 10mg/hr for Afib RVR, sedated with Diprivan and Fentanyl drip. T; 101.0 last night Objective Vital Signs Date Time Temp Pulse Resp B/P (MAP) Pulse Ox O2 Delivery O2 Flow Rate FiO2 07/07/17 06:00 113 07/07/17 04:36 100 30 07/07/17 04:00 99.8 18 109/52 (71) 07/06/17 10:00 Nasal Cannula 2 Intake and Output 07/07/17 07/07/17 07/08/17 08:00 16:00 00:00 Intake Total 190 ml Output Total 350 ml Balance -160 ml Result Diagram: 07/07/17 0527 07/07/1727 Other Results Laboratory Tests Test 07/06/17 12:00 07/06/17 19:24 07/07/17 05:27 Stool C. difficile Toxin (PCR) NEGATIVE Stl C. difficile Toxin Epiderm 027 PRESUMPTIVE NEGATIVE Blood Gas Puncture Site LT RADIAL Blood Gas Patient Temperature 98.6 Blood Gas HCO3 26 mmol/L Blood Gas Base Excess 2.5 mmol/L Blood Gas Oxygen Saturation 98 % Arterial Blood pH 7.46 Arterial Blood Partial Pressure CO2 38 mmHg Arterial Blood Partial Pressure O2 440 mmHg Arterial Blood Oxygen Content 14.0 Vol % Arterial Blood Carboxyhemoglobin 1.7 % Arterial Blood Methemoglobin 1.0 % Blood Gas Hemoglobin 9.4 G/DL Oxygen Delivery Device VENTILATOR Blood Gas Ventilator Setting PRVC18/500/1.0/=5 Blood Gas Inspired Oxygen 100 % White Blood Count 10.4 TH/MM3 Red Blood Count 3.65 MIL/MM3 Hemoglobin 8.1 GM/DL Hematocrit 26.3 % Mean Corpuscular Volume 71.9 FL Mean Corpuscular Hemoglobin 22.1 PG Mean Corpuscular Hemoglobin Concent 30.8 % Red Cell Distribution Width 22.1 % Platelet Count 177 TH/MM3 Mean Platelet Volume 8.9 FL Neutrophils (%) (Auto) 86.0 % Lymphocytes (%) (Auto) 7.5 % Monocytes (%) (Auto) 5.9 % Eosinophils (%) (Auto) 0.0 % Basophils (%) (Auto) 0.6 % Neutrophils # (Auto) 8.9 TH/MM3 Lymphocytes # (Auto) 0.8 TH/MM3 Monocytes # (Auto) 0.6 TH/MM3 Eosinophils # (Auto) 0.0 TH/MM3 Basophils # (Auto) 0.1 TH/MM3 CBC Comment DIFF FINAL Differential Comment Blood Urea Nitrogen 34 MG/DL Creatinine 1.85 MG/DL Random Glucose 112 MG/DL Calcium Level 10.6 MG/DL Magnesium Level 2.2 MG/DL Sodium Level 140 MEQ/L Potassium Level 4.9 MEQ/L Chloride Level 101 MEQ/L Carbon Dioxide Level 26.1 MEQ/L Anion Gap 13 MEQ/L Estimat Glomerular Filtration Rate 28 ML/MIN Imaging Last Impressions Chest X-Ray 07/06/17 0600 Signed Impressions: Service Date/Time: Thursday, July 06, 2017 03:59 - CONCLUSION: Resolution of the right lower lobe infiltrate. More focal consolidation now seen involving the left lower lobe. Floyd Tiwari Jr., MD Brain MRI 06/27/17 0000 Signed Impressions: Service Date/Time: Tuesday, June 27, 2017 10:00 - CONCLUSION: 1. No acute intracranial abnormality. 2. Mild chronic small vessel ischemic change. Floyd Tiwari Jr., MD Head CT 06/24/17 1645 Signed Impressions: Service Date/Time: Saturday, June 24, 2017 18:00 - CONCLUSION: No acute disease. Brian Burnett MD Percutaneous Cholangiogram 06/24/17 0000 Signed Impressions: Service Date/Time: Saturday, June 24, 2017 20:36 - CONCLUSION: Uncomplicated percutaneous cholecystostomy as above. Lalo Wong MD Abdomen/Pelvis CT 06/24/17 0000 Signed Impressions: Service Date/Time: Saturday, June 24, 2017 18:05 - CONCLUSION: 1. Bibasilar patchy infiltrates (right worse than left) consistent with probable pneumonia. Clinical correlation is recommended. 2. Worsening pleural effusions which are moderate in size on the right and small on the left. 3. Diffuse peripheral perfusion defects involving the kidneys suggestive of decreased renal function or possible interval development of bilateral pyelonephritis. Clinical correlation is recommended. 4. Gallbladder wall thickening and vicarious excretion of contrast via the gallbladder. Clinical correlation is recommended to rule out cholecystitis. 5. Interval development of ascites within the abdomen. 6. Thickening of the wall of the ascending colon raising possibility of colitis. Clinical correlation is recommended. Brian Burnett MD Objective Remarks GENERAL: 57-year-old female currently orotracheally intubated, responsive SKIN: Warm and dry. No rash. Well perfused HEAD: Atraumatic. Normocephalic. EYES: Pupils equal and round about 2 mm bilaterally and brisk. No scleral icterus. No injection or drainage. ENT: No nasal bleeding or discharge. Mucous membranes pink and moist. NECK: Trachea midline. No JVD. CARDIOVASCULAR: Irregular rhythm, rate currently low 100's. S1, S2. No S4. Without murmur RESPIRATORY: Miss breath sounds in the bases bilaterally. No wheezing GASTROINTESTINAL: Abdomen soft, tender to palpation in the right upper quadrant and epigastric region. Cholecystostomy tube draining. MUSCULOSKELETAL: Extremities with trace lower extremity peripheral edema. No obvious deformities. 1+ edema right upper extremity NEUROLOGICAL: Spontaneous eye opening .Positive corneal reflex. Positive gag and cough. Moves bilateral lower extremities, left upper extremity. Date of Insertion: Jun 24, 2017 Line: Central Venous Catheter Side: Right Location: Subclavian A/P Assessment and Plan Neuro/Psych: Acute encephalopathy likely toxic metabolic UDS positive for barbiturates Depression/anxiety Seizure questionable On Diprivan/Fentnayl infusion for sedation. Daily sedation vacation Acetaminophen 650 mg by tube. every 6 hours as needed fever/pain CT brain 06/24 revealed no acute intracranial findings EEG 06/25 revealed right frontal lobe sharp activity indicative of epileptiform. Loaded with levetiracetam 1 g IV 1 on 06/26 followed by 500 mg IV twice daily. Repeat EEG 06/26 revealed continuous sharps in right frontal region Repeat EEG 06/28- no epileptiform activity Neurology- Dr. Shannon following 06/27 MRI brain-no acute intracranial abnormality Continue Dilantin 100mg Q8 and Keppra per Neuro, Check Dilantin level CV: Atrial fibrillation rate controlled History of atrial fibrillation currently in A. fib with RVR Hypertension Elevated BNP Lactic acidosis resolved Severe MR Severe TR Acute diastolic heart failure Tachybradycardia syndrome Amiodarone 200mg BID, Lopressor 50mg Q12, On Cardizem drip 10 mg/hr 2D echocardiogram revealed EF 45-50%. Decreased LV systolic function. Bilateral atrial enlargement. Severe MR and TR. Cardiology is following EPS consult secondary to tachybradycardia syndrome-no intervention at this time 05/[address] surgery consulted to evaluate severe MR- Dr. Paul following-no intervention at this time 05/29 clinical status Lactate is cleared 06/26 Labetalol PRN for SBP > 160 Resp: VDRF - Intubated 06/24, extubated and reintubated on 07/06 Right lower lobe infiltrate/pleural effusion Continue with vent support keep sats >92% Ventilator bundle, Bronchodilators Continue with Solumederol 40mg Q6 for stridor GI: Gastroesophageal reflux disease Cholelithiasis on ultrasound 06/23 possibly acute cholecystitis Hypoalbuminemia CT abdomen/pelvis 06/23 revealed a 1 mm gallstone. No signs of cholecystitis. Otherwise unremarkable CT abdomen/pelvis 06/24 revealed right greater than left pleural effusions. Gallbladder wall thickening with voracious dye excretion, descending colon edema and bilateral perinephric stranding Status post cholecystostomy tube by IR 06/24- monitor output ( 200ml ), fluid cx : no growth General surgery recommended continue cholecystostomy tube placement. Outpatient follow-up for cholecystectomy. Tube feeds Vital high at 55 cc/hour on pantoprazole 40 mg IV. daily for gastroesophageal reflux disease Docusate sodium/senna 1 tablet twice daily for bowel regimen GI consulted, Dr. Naqvi - S/P colonoscopy and endoscopy 06/30, upper endoscopy revealed medium-sized ulcer first part of duodenum, multiple small erosions gastric antrum. Colon- Normal mucosa : MISTY Monitor renal function, electrolytes replacement per protocol. d/c Lasix for worsening renal function and place on NS@100ml/hr Cr: 1.99 from 0.76 yesterday Endo: Sliding-scale insulin Novulin R with Accu-Cheks every 4 hours to maintain euglycemia/low regimen TSH -1.76 Heme: Microcytic hypochromic anemia Leukocytosis Resolved DIC Thrombocytopenia Monitor CBC ID: Sepsis likely gallbladder Patient has been on Zosyn since 06/24 and Vanco since 06/30- All previous cultures negative. C-diff PCR negative on 07/06 Will panculture for new onset fever ( Blood, sputum, UA with cx if indicated) Restart abx ( vanco, Cefepime) ID eval 06/25 Urine Legionella pneumococcal antigens no growth Influenza negative Will repeat CT abdomen/pelvis and check CT chest Pertinent cultures 06/25 -bile -no growth 06/25 -sputum -no growth 06/24 -blood cultures 4 -no growth 06/24 -urine -p no growth MSK: PT evaluate and treat Daily functional maintenance Multi-Podus boots bilaterally Access -Right subclavian CVL placed 06/24. d/c central line and place peripheral IV's Prophylaxis -GI -pantoprazole -DVT -SCDs, change Lovenox 80mg daily given worsening renal function. Palliative care is following Level 3 Marci Latif MD Jul 07, 2017 09:11
[2017-07-07 10:23] LABS: BACTERIA, URINE OCC /hpf; BILIRUBIN, URINE NEG (NEG); BLOOD, URINE SMALL (NEG); GLUCOSE,URINE NEG (NEG); KETONE, URINE NEG (NEG); MUCUS URINE FEW /lpf (OCC); NITRITE,URINE NEG (NEG); URINE COLOR DARK-YELLOW (YELLW/STRAW); URINE LEUKOCYTE ESTERASE NEG (NEG)
[2017-07-07 10:24] LABS: ALBUMIN 2.6 GM/DL (3.4-5.0); AST (GOT) 41 U/L (15-37); BICARBONATE 25.1 MEQ/L (21.0-32.0); BLOOD UREA NITROGEN 40 MG/DL (7-18); CALCIUM 9.8 MG/DL (8.5-10.1); CHLORIDE 101 MEQ/L (98-107); CREATININE 1.99 MG/DL (0.50-1.00); GLOMERULAR FILTRATION RATE 26 ML/MIN (>89); GLUCOSE,RANDOM 131 MG/DL (74-106); SODIUM (NA) 139 MEQ/L (136-145)
[2017-07-07 10:25] LABS: ALT (GPT) 43 U/L (10-53); PHENYTOIN (DILANTIN) 3.2 MCG/ML (10.0-20.0)
[2017-07-07 10:27] LABS: ALKALINE PHOSPHATASE 214 U/L (45-117); TOTAL BILIRUBIN ADULT 0.8 MG/DL (0.2-1.0)
[2017-07-07] MEDS ORDERED: VANCOMYCIN INJ 1,000 MG in SODIUM CHLOR 0.9% 250 ML INJ 250 ML IV SCH (11:00)
--- NOTE | 2017-07-07 11:15 | RADRPT ---
EXAM DATE/TIME: 07/07/2017 10:35 [facility] COMPARISON: June 24 INDICATIONS : <<Fever status post cholecystectomy.>> ORAL CONTRAST: No oral contrast ingested. RADIATION DOSE: <<5.1>> CTDIvol (mGy) ; Combined studies - Thorax/Abdomen/Pelvis MEDICAL HISTORY : Cardiovascular disease. SURGICAL HISTORY : Tubal ligation. ENCOUNTER: Initial ACUITY: 1 day PAIN SCALE: Non-responsive LOCATION: anterior TECHNIQUE: Volumetric scanning of the abdomen and pelvis was performed. Using automated exposure control and ad justment of the mA and/or kV according to patient size, radiation dose was kept as low as reasonably achievable to obtain optimal diagnostic quality images. DICOM format image data is available electro nically for review and comparison. FINDINGS: Previous basilar airspace disease has improved with some dependent consolidation remaining. No signif icant effusion. No acute findings in the liver, spleen, adrenals or pancreas. Cholecystostomy drain remains in the ri ght upper quadrant. NG coiled in the stomach. No free fluid. No bowel obstruction. No adenopathy. Ferguson catheter in decompressed bladder. CONCLUSION: 1. No loculated fluid collections within the abdomen and pelvis to suggest abscess. Drainage catheter remains in right upper quadrant. 2. Improved basilar airspace consolidation in the lungs since June 24. 3. NG coiled in stomach. Ferguson catheter in decompressed bladder. No bowel obstruction, free fluid or free air. Leandro Palacios MD on July 07, 2017 at 11:06 Board Certified Radiologist. This report was verified electronically.
--- NOTE | 2017-07-07 11:20 | RADRPT ---
EXAM DATE/TIME: 07/07/2017 10:35 [facility] COMPARISON: CT ABDOMEN & PELVIS W/O CONTRAST, June 24, 2017, 18:05. INDICATIONS : Fever. Evaluate for pneumonia. RADIATION DOSE: 5.1 CTDIvol (mGy) ; Combined studies - Thorax/Abdomen/Pelvis MEDICAL HISTORY : Cardiovascular disease. SURGICAL HISTORY : Tubal ligation. ENCOUNTER: Initial ACUITY: 1 day PAIN SCALE: Non-responsive LOCATION: chest TECHNIQUE: Volumetric scanning of the chest was performed. Using automated exposure control and adjustment of the mA and/or kV according to patient size, radiation dose was kept as low as reasonab ly achievable to obtain optimal diagnostic quality images. DICOM format image data is available elec tronically for review and comparison. Follow-up recommendations for detected pulmonary nodules are based at a minimum on nodule size and pa tient risk factors according to Fleischner Society Guidelines. FINDINGS: LUNGS: There are minimal groundglass opacities in the lower lobes bilaterally with more confluent airspace consolidation at the bases. PLEURAE: There is no pleural thickening or pleural effusion. MEDIASTINUM: Very subtle anterior pericardial effusion. Heart is otherwise grossly unremarkable. No gross mediastinal adenopathy. Right subclavian central line in good position. NGT in the stomach. AXILLAE: Within normal limits. No lymphadenopathy. MUSCULOSKELETAL: Within normal limits for patient age. MISCELLANEOUS: The visualized upper abdominal organs demonstrate no acute abnormality. CONCLUSION: 1. Interval resolution of bilateral pleural effusions with improved airspace disease in the lower lob es in comparison to 06/24/2017. 2. Very subtle anterior pericardial effusion. Akira Cullen MD on July 07, 2017 at 11:15 Board Certified Radiologist. This report was verified electronically.
[2017-07-07] MEDS ORDERED: CEFEPIME INJ 1,000 MG in SODIUM CHLORIDE 0.9% INJ 100 ML IV SCH (12:00)
[2017-07-07] MEDS: SODIUM CHLOR 0.9% 1000 ML INJ 1,000 ML IV SCH (13:32)
--- NOTE | 2017-07-07 13:52 | HHI.HCPN ---
Reason for visit a. To assist with evaluation and management of symptoms including: dyspnea. pain b. To assist medical decision maker(s) with: better understanding of current medical conditions; weighing benefits/burdens of medical treatment options; making medical treatment decisions. Subjective/Interval History Patient seen in follow-up on comfort, goals. she was extubated yesterday morning however later in the afternoon around 1700 required reintubation, noted to have stridor, she continued to have A. fib RVR required Cardizem drip overnight which has since been discontinued. Currently Sedated with Diprivan and Fentanyl drip. Febrile, MAXIMUM TEMPERATURE 101.0 . Repeat cultures pending. Chest CT obtained= 1. Interval resolution of bilateral pleural effusions with improved airspace disease in the lower lobes in comparison to 06/24/2017. 2. Very subtle anterior pericardial effusion. Abdomen/ pelvis CT also obtained= 1. No loculated fluid collections within the abdomen and pelvis to suggest abscess. Drainage catheter remains in right upper quadrant. 2. Improved basilar airspace consolidation in the lungs since June 24. 3. NG coiled in stomach. Arguello catheter in decompressed bladder. No bowel obstruction, free fluid or free air. CBC stable, unchanged. Renal functioning worsening BUN 40/creatinine 1.99 GFR 26. Urine output decreasing, 1550 in the last 24 hours. Patient examined in room no visitors present, dual visit with A [place] palliative social group worker. RN present discussed with primary RN. She is sedated, minimally responsive to my exam though does withdraw extremities to pain stimuli. No eye opening. No apparent distress. . Family/friend interactions Following exam call to son Kenneth to provide update, he will call me back shortly he is unable to speak at this time. Call back from son Kenneth, provided update on recent diagnostics, tx in place, slightly worsening clinical condition. Review that if condition continues in this direction w /out significant improvement, they will likely need to make trach/PEG decisions to continue aggressive tx. Kenneth shares that family was there yesterday afternoon when pt condition required reintubation. He expresses family understands condition /prognosis. For now they wish to continue maximized medical tx over the coming days, but endorses family is certain pt would NOT want trach or PEG , and if faced with that would prefer comfort measures at that time. They wish to cont aggressive tx for now, but are open to ongoing discussions in the coming days as clinical course evolves. They may consider transition to comfort if pt condition worsens, does not improve by end of week. He has palliative contact information. . Advance Directives Living Will: Never completed Health Care Surrogate: Never completed Durable Power of Anesthesiology Teacher: Never completed Objective Vital Signs Date Time Temp Pulse Resp B/P (MAP) Pulse Ox O2 Delivery O2 Flow Rate FiO2 07/07/17 12:11 100 30 07/07/17 12:00 80 07/07/17 12:00 30 07/07/17 10:36 100 50 07/07/17 10:00 90 07/07/17 08:47 100 30 07/07/17 08:00 99.5 100 18 109/58 (75) 100 07/07/17 08:00 100 07/07/17 08:00 30 07/07/17 06:00 113 07/07/17 04:36 100 30 07/07/17 04:00 99.8 117 18 109/52 (71) 100 07/07/17 04:00 117 07/07/17 04:00 30 07/07/17 02:18 120 101/53 07/07/17 02:00 108 07/07/17 01:40 100 30 07/07/17 00:10 131 111/65 07/07/17 00:00 99.6 121 18 118/62 (80) 100 07/07/17 00:00 30 07/07/17 00:00 121 07/07/17 00:00 99.6 124 19 98/57 (71) 100 07/06/17 23:50 98 30 07/06/17 22:00 110 07/06/17 21:45 60 07/06/17 20:55 100 70 07/06/17 20:00 124 07/06/17 20:00 101.0 124 19 98/57 (71) 100 07/06/17 20:00 100 07/06/17 18:00 122 07/06/17 18:00 100 07/06/17 17:26 100 100 07/06/17 16:00 122 07/06/17 16:00 98.0 142 18 161/88 (112) 98 07/06/17 14:00 122 Intake & Output 07/07/17 07/07/17 07:00 19:00 Intake Total 440 ml 105 ml Output Total 350 ml Balance 90 ml 105 ml IV Total 250 ml 105 ml Tube Feeding 90 ml Other 100 ml Output Urine Total 150 ml Drainage Total 200 ml # Bowel Movements 0 Physical Exam 1520 CONSTITUTIONAL/GENERAL: This is an adequately nourished patient, sedated on mech vent TUBES/LINES/DRAINS: RT SC central line, arguello catheter, soft wrist restraints. ETT SKIN: slight jaundice, rashes, or lesions. Skin warm/dry NECK: Trachea midline. Supple, nontender. No palpable thyroid enlargement or nodularity. CARDIOVASCULAR: Irregular rate and rhythm without murmur, rate 70s. Peripheral pulses symmetric. RESPIRATORY/CHEST: Symmetric, unlabored respirations via mech vent.Clear to auscultation. Breath sounds equal bilaterally. GASTROINTESTINAL: Abdomen soft, no apparent tenderness (limited assess 2/2 condition), nondistended. No palpable masses. Bowel sounds present.Drain from rt side sm amt brownish yellow present GENITOURINARY: Without palpable bladder distension. Arguello catheter in place. NEUROLOGICAL: sedated on mech vent. no eye opening. Minimally responsive to my exam. +withdrawal to pain stimuli on extremities. PSYCHIATRIC: No obvious anxiety/depression- limited assessment due to clinical condition Diagnostic Tests Laboratory Laboratory Tests Test 07/05/17 05:15 07/05/17 08:45 07/05/17 16:20 07/06/17 02:55 White Blood Count 10.5 TH/MM3 (4.0-11.0) 9.6 TH/MM3 (4.0-11.0) Red Blood Count 3.56 MIL/MM3 (4.00-5.30) 3.56 MIL/MM3 (4.00-5.30) Hemoglobin 7.7 GM/DL (11.6-15.3) 7.8 GM/DL (11.6-15.3) Hematocrit 25.5 % (35.0-46.0) 25.6 % (35.0-46.0) Mean Corpuscular Volume 71.6 FL (80.0-100.0) 71.9 FL (80.0-100.0) Mean Corpuscular Hemoglobin 21.6 PG (27.0-34.0) 21.8 PG (27.0-34.0) Mean Corpuscular Hemoglobin Concent 30.1 % (32.0-36.0) 30.3 % (32.0-36.0) Red Cell Distribution Width 21.8 % (11.6-17.2) 22.1 % (11.6-17.2) Platelet Count 141 TH/MM3 (150-450) 124 TH/MM3 (150-450) Mean Platelet Volume 8.5 FL (7.0-11.0) 9.3 FL (7.0-11.0) Neutrophils (%) (Auto) 77.6 % (16.0-70.0) Lymphocytes (%) (Auto) 8.5 % (9.0-44.0) Monocytes (%) (Auto) 10.6 % (0.0-8.0) Eosinophils (%) (Auto) 2.7 % (0.0-4.0) Basophils (%) (Auto) 0.6 % (0.0-2.0) Neutrophils # (Auto) 8.1 TH/MM3 (1.8-7.7) Lymphocytes # (Auto) 0.9 TH/MM3 (1.0-4.8) Monocytes # (Auto) 1.1 TH/MM3 (0-0.9) Eosinophils # (Auto) 0.3 TH/MM3 (0-0.4) Basophils # (Auto) 0.1 TH/MM3 (0-0.2) CBC Comment DIFF FINAL Differential Comment Blood Urea Nitrogen 11 MG/DL (7-18) 15 MG/DL (7-18) Creatinine 0.73 MG/DL (0.50-1.00) 0.76 MG/DL (0.50-1.00) Random Glucose 124 MG/DL (74-106) 125 MG/DL (74-106) Calcium Level 9.1 MG/DL (8.5-10.1) 9.4 MG/DL (8.5-10.1) Phosphorus Level 3.1 MG/DL (2.5-4.9) 3.3 MG/DL (2.5-4.9) Magnesium Level 1.8 MG/DL (1.5-2.5) 2.1 MG/DL (1.5-2.5) Sodium Level 142 MEQ/L (136-145) 143 MEQ/L (136-145) Potassium Level 3.2 MEQ/L (3.5-5.1) 3.6 MEQ/L (3.5-5.1) 3.7 MEQ/L (3.5-5.1) Chloride Level 107 MEQ/L (98-107) 107 MEQ/L (98-107) Carbon Dioxide Level 25.9 MEQ/L (21.0-32.0) 29.2 MEQ/L (21.0-32.0) Anion Gap 9 MEQ/L (5-15) 7 MEQ/L (5-15) Estimat Glomerular Filtration Rate 82 ML/MIN (>89) 78 ML/MIN (>89) Vancomycin Level Trough 9.3 MCG/ML (5.0-10.0) Test 07/06/17 05:20 07/06/17 12:00 07/06/17 19:24 07/07/17 05:27 Blood Gas Puncture Site LT RADIAL LT RADIAL Blood Gas Patient Temperature 98.6 98.6 Blood Gas HCO3 26 mmol/L (22-26) 26 mmol/L (22-26) Blood Gas Base Excess 1.5 mmol/L (-2-2) 2.5 mmol/L (-2-2) Blood Gas Oxygen Saturation 95 % (90-100) 98 % (90-100) Arterial Blood pH 7.42 (7.380-7.420) 7.46 (7.380-7.420) Arterial Blood Partial Pressure CO2 40 mmHg (38-42) 38 mmHg (38-42) Arterial Blood Partial Pressure O2 102 mmHg (61-120) 440 mmHg (61-120) Arterial Blood Oxygen Content 10.7 Vol % (12.0-20.0) 14.0 Vol % (12.0-20.0) Arterial Blood Carboxyhemoglobin 1.8 % (0-4) 1.7 % (0-4) Arterial Blood Methemoglobin 1.1 % (0-2) 1.0 % (0-2) Blood Gas Hemoglobin 7.8 G/DL (12.0-16.0) 9.4 G/DL (12.0-16.0) Oxygen Delivery Device VENT VENTILATOR Blood Gas Ventilator Setting SEE COMMENTS PRVC18/500/1.0/=5 Blood Gas Inspired Oxygen 30 % 100 % Stool C. difficile Toxin (PCR) NEGATIVE (NEGATIVE) Stl C. difficile Toxin Epiderm 027 PRESUMPTIVE NEGATIVE White Blood Count 10.4 TH/MM3 (4.0-11.0) Red Blood Count 3.65 MIL/MM3 (4.00-5.30) Hemoglobin 8.1 GM/DL (11.6-15.3) Hematocrit 26.3 % (35.0-46.0) Mean Corpuscular Volume 71.9 FL (80.0-100.0) Mean Corpuscular Hemoglobin 22.1 PG (27.0-34.0) Mean Corpuscular Hemoglobin Concent 30.8 % (32.0-36.0) Red Cell Distribution Width 22.1 % (11.6-17.2) Platelet Count 177 TH/MM3 (150-450) Mean Platelet Volume 8.9 FL (7.0-11.0) Neutrophils (%) (Auto) 86.0 % (16.0-70.0) Lymphocytes (%) (Auto) 7.5 % (9.0-44.0) Monocytes (%) (Auto) 5.9 % (0.0-8.0) Eosinophils (%) (Auto) 0.0 % (0.0-4.0) Basophils (%) (Auto) 0.6 % (0.0-2.0) Neutrophils # (Auto) 8.9 TH/MM3 (1.8-7.7) Lymphocytes # (Auto) 0.8 TH/MM3 (1.0-4.8) Monocytes # (Auto) 0.6 TH/MM3 (0-0.9) Eosinophils # (Auto) 0.0 TH/MM3 (0-0.4) Basophils # (Auto) 0.1 TH/MM3 (0-0.2) CBC Comment DIFF FINAL Differential Comment Blood Urea Nitrogen 34 MG/DL (7-18) Creatinine 1.85 MG/DL (0.50-1.00) Random Glucose 112 MG/DL (74-106) Calcium Level 10.6 MG/DL (8.5-10.1) Magnesium Level 2.2 MG/DL (1.5-2.5) Sodium Level 140 MEQ/L (136-145) Potassium Level 4.9 MEQ/L (3.5-5.1) Chloride Level 101 MEQ/L (98-107) Carbon Dioxide Level 26.1 MEQ/L (21.0-32.0) Anion Gap 13 MEQ/L (5-15) Estimat Glomerular Filtration Rate 28 ML/MIN (>89) Test 07/07/17 09:25 07/07/17 09:40 Urine Color DARK-YELLOW (YELLW/STRAW) Urine Turbidity CLOUDY (CLEAR) Urine pH 5.0 (5.0-8.5) Urine Specific [place] 1.025 (1.002-1.035) Urine Protein 30 mg/dL (NEG-TRACE) Urine Glucose (UA) NEG mg/dL (NEG) Urine Ketones NEG mg/dL (NEG) Urine Occult Blood SMALL (NEG) Urine Nitrite NEG (NEG) Urine Bilirubin NEG (NEG) Urine Urobilinogen LESS THAN 2.0 MG/DL (LESS Urine Leukocyte Esterase NEG (NEG) Urine RBC 3 /hpf (0-3) Urine WBC 14 /hpf (0-5) Urine Bacteria OCC /hpf (NONE) Urine Granular Casts 26 /lpf (NONE) Urine Mucus FEW /lpf (OCC) Microscopic Urinalysis Comment CATH-CULTURE IND Blood Urea Nitrogen 40 MG/DL (7-18) Creatinine 1.99 MG/DL (0.50-1.00) Random Glucose 131 MG/DL (74-106) Total Protein 8.0 GM/DL (6.4-8.2) Albumin 2.6 GM/DL (3.4-5.0) Calcium Level 9.8 MG/DL (8.5-10.1) Alkaline Phosphatase 214 U/L (45-117) Aspartate Amino Transf (AST/SGOT) 41 U/L (15-37) Alanine Aminotransferase (ALT/SGPT) 43 U/L (10-53) Total Bilirubin 0.8 MG/DL (0.2-1.0) Sodium Level 139 MEQ/L (136-145) Potassium Level 4.9 MEQ/L (3.5-5.1) Chloride Level 101 MEQ/L (98-107) Carbon Dioxide Level 25.1 MEQ/L (21.0-32.0) Anion Gap 13 MEQ/L (5-15) Estimat Glomerular Filtration Rate 26 ML/MIN (>89) Phenytoin (Dilantin) Level 3.2 MCG/ML (10.0-20.0) Result Diagram: 07/07/17 0527 07/07/17 0940 Microbiology Microbiology Date/Time Source Procedure Growth Status 07/07/17 11:08 Blood Peripheral Aerobic Blood Culture Pending Received 07/07/17 11:08 Blood Peripheral Anaerobic Blood Culture Pending Received 07/07/17 11:00 Blood Peripheral Aerobic Blood Culture Pending Received 07/07/17 11:00 Blood Peripheral Anaerobic Blood Culture Pending Received 07/06/17 21:22 Sputum Endotracheal Gram Stain - Final Resulted 07/06/17 21:22 Sputum Endotracheal Sputum Culture - Preliminary IMMATURE GROWTH - REINCUBATE Resulted 07/07/17 09:25 Urine Catheterized Urine Urine Culture Pending Received Imaging Last Impressions Chest CT 07/07/17 0000 Signed Impressions: Service Date/Time: Friday, July 07, 2017 10:35 - CONCLUSION: 1. Interval resolution of bilateral pleural effusions with improved airspace disease in the lower lobes in comparison to 06/24/2017. 2. Very subtle anterior pericardial effusion. Akira Cullen MD Abdomen/Pelvis CT 07/07/17 0000 Signed Impressions: Service Date/Time: Friday, July 07, 2017 10:35 - CONCLUSION: 1. No loculated fluid collections within the abdomen and pelvis to suggest abscess. Drainage catheter remains in right upper quadrant. 2. Improved basilar airspace consolidation in the lungs since June 24. 3. NG coiled in stomach. Arguello catheter in decompressed bladder. No bowel obstruction, free fluid or free air. Leandro Palacios MD Chest X-Ray 07/06/17 0600 Signed Impressions: Service Date/Time: Thursday, July 06, 2017 03:59 - CONCLUSION: Resolution of the right lower lobe infiltrate. More focal consolidation now seen involving the left lower lobe. Floyd Tiwari Jr., MD Brain MRI 06/27/17 0000 Signed Impressions: Service Date/Time: Tuesday, June 27, 2017 10:00 - CONCLUSION: 1. No acute intracranial abnormality. 2. Mild chronic small vessel ischemic change. Floyd Tiwari Jr., MD Head CT 06/24/17 1645 Signed Impressions: Service Date/Time: Saturday, June 24, 2017 18:00 - CONCLUSION: No acute disease. Brian Burnett MD Percutaneous Cholangiogram 06/24/17 0000 Signed Impressions: Service Date/Time: Saturday, June 24, 2017 20:36 - CONCLUSION: Uncomplicated percutaneous cholecystostomy as above. 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 Spiritual:none listed. Legal:Pt is . Currently has 4 children Billy Mcqueen, Kenneth [phone] Yaneth; [phone] Health care proxy are the 4 children. Ethical issues impacting care:none Important Contacts Son: Kenneth [phone] dtr Yaneth [phone]. dtr Charisse son Billy [phone] . Prognosis 57 year old prognosis is guarded. Code Status: Full Code Plan ==Code: FULL CODE == Decision maker- pt currently does not capacity to make medical decisions.pt is . No advance directives. Per [place] Statutes proxy would be pt's four children: Kenneth, Yaneth, Charisse, and Billy. == symptoms: pain- acute cholecystitis, now bedbound. +abd tender to exam. Cautious use opiates 2/2 AMS/encephalopathy,recent medical extubation. dyspnea- on mechanical ventilation--> medically extubated 07/06, tolerating room air-->> later reintubated. CXR some improvement RLL, + consolidation LLL.CT chest neg acute process encephalopathy- hx ? seizures. ? toxic metabolic encephalopathy.ammonia 07/03 =10. 3/12 confused, not consistently following commands == goals of care: For now they wish to continue maximized medical tx over the coming days, but endorses family is certain pt would NOT want trach or PEG , and if faced with that would prefer comfort measures at that time. They wish to cont aggressive tx for now, but are open to ongoing discussions in the coming days as clinical course evolves. They may consider transition to comfort if pt condition worsens, does not improve by end of week. == palliative care will follow to make recommendations for symptoms and to review goals of care as pt's condition evolves. Attestation To help prompt me to consider important information that might be impacting today's encounter and assessment, information from prior notes written by myself or my colleagues may have been "brought forward" into today's note. My signature on this note, however, is an attestation that I personally performed the exam, history, and/or decision-making noted today, and, unless otherwise indicated, the interactions with patient, family, and staff as well as the review of records all occurred today. I also attest that the listed assessment and stated plan reflect my best clinical judgment today based on the combination of historical information, prior notes, and today's exam/ interactions. When time spent is documented, it refers only to time spent today by the signer, or if indicated, combined time spent today by collaborating physician/nurse practitioner. Idalia Riggs Jul 07, 2017 13:52
--- NOTE | 2017-07-07 13:54 | PD.ID.CON ---
History of Present Illness Service ID Consult Requested By Reason for Consult Evaluation and Mment of fevers, Pneumonia, Acute cholecystitis. Primary Care Physician Non-Staff Diagnoses: History of Present Illness Most of the history was obtained by review of medical records. is a 57-year-old with PMHx of COPD, GERD, hypertension, cardiovascular problems that presented to the hospital on 06/23/2017 for complaints of epigastric and abdominal pain, nausea vomiting, shortness of breath. Patient's pain was burning and localized around the epigastric area. In the ER patient was afebrile, HR 165, BP 155/85, Sats 100%. Her WBC on admission was 8.5, Plts 294, Cr 0.81. LFTs normal. Urine tox positive for barbiturates.Chest x-ray showed bilateral hazy perihilar and bibasilar opacities concerning for pulmonary edema. An abdominal CT showed bilateral pleural effusion with no abdominal abscesses identified. While in the ED patient had A. fib and RVR and was placed on Cardizem drip. She had mid epigastric abdominal pain. Patient was admitted under hospitalist services for pulmonary edema, A. fib, abdominal pain. On 06/24/17 patient was found to be somnolent and not responding to verbal stimuli. HR was found to be 42 with sinus bradycardia. Patient was transferred under aquatics coordinator services. Patient was subsequently intubated for respiratory distress and altered mental status. CT head showed no acute disease. Repeat CT C/A/P with pneumonia, worsening effusion, ? pyelonephritis and ? Colitis. GB wall thickening. A Cholecystostomy tube was placed by IR. On 06/25/2017 patient had EEG done which showed Epileptiform foci. Repeat EEG continued to show similar activity and patient is currently on Keppra and Dilantin. Of note no prior h/o seizures. No reported alcohol use but remains a concern. 2-D echo shows EF of 45-50%, left atrium moderately to severely dilated. Right atrium moderately to severely dilated and showed sever MR. 06/26/2017-patient remains on A. fib with RVR. 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 There evaluation shows tachycardia bradycardia syndrome x-ray difficult to control. Tachycardia may most likely be due to anemia and infection. Currently patient is not a candidate for any surgery and recommendations to continue with current management. If heart rate cannot be controlled patient may need pacing support. Patient underwent EGD which shows esophagus was otherwise normal, there is multiple small erosions found in the gastric antrum. Medium-sized ulcer was found in the duodenum. Colonoscopy was otherwise normal. Palliative care was consulted to help address goals of care. ID consulted for fevers, acute cholecystitis and pneumonia. Patient is in the ICU at time of my evaluation, not on pressors, UO low and dark, secretions small pale white. No rash, No diarrhea. Review of Systems ROS Limitations: Intubated Past Family Social History Allergies: Coded Allergies: Sulfa (Sulfonamide Antibiotics) (Verified Allergy, Unknown, 06/23/17) ciprofloxacin (Verified Allergy, Unknown, 06/23/17) hydromorphone (Verified Allergy, Unknown, 06/23/17) Past Medical History atrial fibrillation, anxiety, GERD anemia Past Surgical History Tubal ligation Colonoscopy EGD Reported Medications Reported Meds & Active Scripts Active Reported Paroxetine (Paroxetine HCl) Unknown Strength Tab Unknown Dose PO DAILY Omeprazole Unknown Strength Tab Unknown Dose PO DAILY Active Ordered Medications Current Medications Medications (Trade) Dose Ordered Sig/Salud Route Start Time Stop Time Status Last Admin (Narcan Inj) 0.4 mg UNSCH PRN IV PUSH 06/23/17 20:30 Sodium Phosphate 30 mmol/Sodium Chloride 250 ml @ 42 mls/hr UNSCH PRN IV 06/24/17 17:00 Potassium Phosphate 30 mmol/ Sodium Chloride 260 ml @ 42 mls/hr UNSCH PRN IV 06/24/17 17:00 (D50w (Vial) Inj) 50 ml UNSCH PRN IV PUSH 06/24/17 17:00 (Glucagon Inj) 1 mg UNSCH PRN OTHER 06/24/17 17:00 (NS Flush) 2 ml UNSCH PRN IV FLUSH 06/24/17 17:00 07/05/17 20:36 (NS Flush) 2 ml BID IV FLUSH 06/24/17 21:00 07/07/17 09:08 (Zofran Inj) 4 mg Q6H PRN IV PUSH 06/24/17 17:00 07/05/17 17:24 (Albuterol Neb) 2.5 mg Q2HR NEB PRN INH 06/24/17 17:00 07/05/17 03:33 Miscellaneous Information 1 Q361D XX 06/24/17 18:00 (Chlorhexidine 2% Cloth) Taper DAILY@04 TOP 06/25/17 04:00 06/21/18 03:59 07/02/17 04:00 (Chlorhexidine 2% Cloth) 3 pack UNSCH PRN TOP 06/24/17 17:00 (Keiry-Colace) 1 tab BID PO 06/24/17 21:00 07/07/17 09:07 (Senokot) 17.2 mg Q12H PRN PO 06/24/17 17:00 (Dulcolax Supp) 10 mg DAILY PRN RECTAL 06/24/17 17:00 (Lactulose Liq) 30 ml DAILY PRN PO 06/24/17 17:00 (Peridex 0.12% Liq) 15 ml BID@08,20 MT 06/24/17 20:00 07/07/17 08:00 (Brethine Inj) 1 mg UNSCH PRN SQ 06/24/17 19:30 (Tears Naturale Opth Soln) 1 drop Q8HR EACH EYE 06/24/17 22:00 07/07/17 13:32 (NovoLIN R SUPPLEMENTAL SCALE) 1 Q4HR SQ 06/24/17 20:00 07/05/17 16:00 (Protonix Inj) 40 mg Q24H IV PUSH 06/24/17 20:00 07/06/17 19:51 (Tylenol 650 Mg/ 20 ml Liq) 650 mg Q6H PRN NG 06/25/17 08:45 07/06/17 19:52 Levetriacetam 500 mg/Sodium Chloride 105 ml @ 420 mls/hr Q12HR IV 06/26/17 21:00 07/07/17 09:07 (Cerebyx Inj) 100 mgpe Q8HR IV 06/27/17 22:00 07/07/17 14:43 (Cordarone) 200 mg Q12HR PO 06/29/17 16:00 07/07/17 09:07 (Lopressor Inj) 2.5 mg Q6H PRN IV PUSH 06/30/17 09:45 07/06/17 11:26 (Trandate Inj) 10 mg Q4H PRN IV PUSH 07/02/17 16:45 07/06/17 04:35 (Mycostatin Liq) 5 ml QID SWISH-SWAL 07/04/17 09:00 07/18/17 09:00 07/07/17 17:02 (Lopressor) 50 mg Q12HR PO 07/06/17 13:00 07/07/17 09:07 Propofol 100 ml @ 2.004 mls/ hr TITRATE PRN IV 07/06/17 17:30 07/07/17 08:06 Fentanyl Citrate 250 ml @ 5 mls/hr TITRATE PRN IV 07/06/17 17:30 07/06/17 17:43 Diltiazem HCl 125 mg/Sodium Chloride 125 ml @ 5 mls/hr TITRATE PRN IV 07/06/17 21:30 07/07/17 00:10 Sodium Chloride 1,000 ml @ 100 mls/hr Q10H IV 07/07/17 12:00 07/07/17 13:32 (Lovenox Inj) 80 mg DAILY SQ 07/08/17 09:00 Vancomycin HCl 1250 mg/Sodium Chloride 262.5 ml @ 250 mls/hr Q24H IV 07/08/17 11:00 Miscellaneous Information SPECIFIC LAB TO BE DRAWN:VANCO TROUGH DATE TO... ONCE ONCE .XX 07/09/17 10:45 07/09/17 10:46 Micafungin Sodium 150 mg/Sodium Chloride 100 ml @ 100 mls/hr Q24H IV 07/07/17 15:00 07/07/17 15:32 Cefepime HCl 1000 mg/Sodium Chloride 100 ml @ 200 mls/hr Q24H IV 07/08/17 12:00 Family History could not be obtained. Social History could not be obtained Physical Exam Vital Signs Vital Signs Date Time Temp Pulse Resp B/P (MAP) Pulse Ox O2 Delivery O2 Flow Rate FiO2 07/07/17 12:11 100 30 07/07/17 12:00 99.7 80 18 117/55 (75) 100 07/07/17 12:00 80 07/07/17 12:00 30 07/07/17 10:36 100 50 07/07/17 10:00 90 07/07/17 08:47 100 30 07/07/17 08:00 99.5 100 18 109/58 (75) 100 07/07/17 08:00 100 07/07/17 08:00 30 07/07/17 06:00 113 07/07/17 04:36 100 30 07/07/17 04:00 99.8 117 18 109/52 (71) 100 07/07/17 04:00 117 07/07/17 04:00 30 07/07/17 02:18 120 101/53 07/07/17 02:00 108 07/07/17 01:40 100 30 07/07/17 00:10 131 111/65 07/07/17 00:00 99.6 121 18 118/62 (80) 100 07/07/17 00:00 30 07/07/17 00:00 121 07/07/17 00:00 99.6 124 19 98/57 (71) 100 07/06/17 23:50 98 30 07/06/17 22:00 110 07/06/17 21:45 60 07/06/17 20:55 100 70 07/06/17 20:00 124 07/06/17 20:00 101.0 124 19 98/57 (71) 100 07/06/17 20:00 100 07/06/17 18:00 122 07/06/17 18:00 100 07/06/17 17:26 100 100 07/06/17 16:00 122 07/06/17 16:00 98.0 142 18 161/88 (112) 98 07/06/17 14:00 122 Physical Exam GENERAL: This is a well-nourished, well-developed patient, in no apparent distress. SKIN: No rashes, ecchymoses or lesions. Cool and dry. HEAD: Atraumatic. Normocephalic. No temporal or scalp tenderness. EYES: Pupils equal round and reactive. Extraocular motions intact. Positive for scleral icterus. No injection or drainage. ENT: Intubated. NECK: Trachea midline. Supple, nontender, no meningeal signs. CARDIOVASCULAR: HS audible. RESPIRATORY: Clear to auscultation. Breath sounds equal bilaterally. No wheezes , rales, or rhonchi. GASTROINTESTINAL: Abdomen soft, nondistended. Cholecystostomy tube in place RUQ. RUQ tenderness. MUSCULOSKELETAL: Extremities without clubbing, cyanosis, or edema. No joint tenderness, effusion. Pedal edema noted. NEUROLOGICAL: Not arousable. Psych could not be assessed. IV line sites with no e/o infection. Laboratory Laboratory Tests Test 07/06/17 19:24 07/07/17 05:27 07/07/17 09:25 07/07/17 09:40 Blood Gas Puncture Site LT RADIAL Blood Gas Patient Temperature 98.6 Blood Gas HCO3 26 Blood Gas Base Excess 2.5 Blood Gas Oxygen Saturation 98 Arterial Blood pH 7.46 Arterial Blood Partial Pressure CO2 38 Arterial Blood Partial Pressure O2 440 Arterial Blood Oxygen Content 14.0 Arterial Blood Carboxyhemoglobin 1.7 Arterial Blood Methemoglobin 1.0 Blood Gas Hemoglobin 9.4 Oxygen Delivery Device VENTILATOR Blood Gas Ventilator Setting PRVC18/500/1.0/=5 Blood Gas Inspired Oxygen 100 White Blood Count 10.4 Red Blood Count 3.65 Hemoglobin 8.1 Hematocrit 26.3 Mean Corpuscular Volume 71.9 Mean Corpuscular Hemoglobin 22.1 Mean Corpuscular Hemoglobin Concent 30.8 Red Cell Distribution Width 22.1 Platelet Count 177 Mean Platelet Volume 8.9 Neutrophils (%) (Auto) 86.0 Lymphocytes (%) (Auto) 7.5 Monocytes (%) (Auto) 5.9 Eosinophils (%) (Auto) 0.0 Basophils (%) (Auto) 0.6 Neutrophils # (Auto) 8.9 Lymphocytes # (Auto) 0.8 Monocytes # (Auto) 0.6 Eosinophils # (Auto) 0.0 Basophils # (Auto) 0.1 CBC Comment DIFF FINAL Differential Comment Blood Urea Nitrogen 34 40 Creatinine 1.85 1.99 Random Glucose 112 131 Calcium Level 10.6 9.8 Magnesium Level 2.2 Sodium Level 140 139 Potassium Level 4.9 4.9 Chloride Level 101 101 Carbon Dioxide Level 26.1 25.1 Anion Gap 13 13 Estimat Glomerular Filtration Rate 28 26 Urine Color DARK-YELLOW Urine Turbidity CLOUDY Urine pH 5.0 Urine Specific [place] 1.025 Urine Protein 30 Urine Glucose (UA) NEG Urine Ketones NEG Urine Occult Blood SMALL Urine Nitrite NEG Urine Bilirubin NEG Urine Urobilinogen LESS THAN 2.0 Urine Leukocyte Esterase NEG Urine RBC 3 Urine WBC 14 Urine Bacteria OCC Urine Granular Casts 26 Urine Mucus FEW Microscopic Urinalysis Comment CATH-CULTURE IND Total Protein 8.0 Albumin 2.6 Alkaline Phosphatase 214 Aspartate Amino Transf (AST/SGOT) 41 Alanine Aminotransferase (ALT/SGPT) 43 Total Bilirubin 0.8 Phenytoin (Dilantin) Level 3.2 Date/Time Source Procedure Growth Status 07/07/17 11:08 Blood Peripheral Aerobic Blood Culture Pending Received 07/07/17 11:08 Blood Peripheral Anaerobic Blood Culture Pending Received 06/25/17 08:00 Fluid Bile Fluid Gram Stain - Final Complete 06/25/17 08:00 Fluid Bile Fluid Body Fluid Culture - Final NO GROWTH IN 72 HRS.--AEROBICALLY OR ... Complete 07/06/17 21:22 Sputum Endotracheal Gram Stain - Final Resulted 07/06/17 21:22 Sputum Endotracheal Sputum Culture - Preliminary IMMATURE GROWTH - REINCUBATE Resulted 07/07/17 09:25 Urine Catheterized Urine Urine Culture Pending Received Result Diagram: 07/07/17 0527 07/07/17 0940 Imaging Last Impressions Chest CT 07/07/17 0000 Signed Impressions: Service Date/Time: Friday, July 07, 2017 10:35 - CONCLUSION: 1. Interval resolution of bilateral pleural effusions with improved airspace disease in the lower lobes in comparison to 06/24/2017. 2. Very subtle anterior pericardial effusion. Akira Cullen MD Abdomen/Pelvis CT 07/07/17 0000 Signed Impressions: Service Date/Time: Friday, July 07, 2017 10:35 - CONCLUSION: 1. No loculated fluid collections within the abdomen and pelvis to suggest abscess. Drainage catheter remains in right upper quadrant. 2. Improved basilar airspace consolidation in the lungs since June 24. 3. NG coiled in stomach. Ferguson catheter in decompressed bladder. No bowel obstruction, free fluid or free air. Leandro Palacios MD Chest X-Ray 07/06/17 0600 Signed Impressions: Service Date/Time: Thursday, July 06, 2017 03:59 - CONCLUSION: Resolution of the right lower lobe infiltrate. More focal consolidation now seen involving the left lower lobe. Floyd Tiwari Jr., MD Brain MRI 06/27/17 0000 Signed Impressions: Service Date/Time: Tuesday, June 27, 2017 10:00 - CONCLUSION: 1. No acute intracranial abnormality. 2. Mild chronic small vessel ischemic change. Floyd Tiwari Jr., MD Head CT 06/24/17 1645 Signed Impressions: Service Date/Time: Saturday, June 24, 2017 18:00 - CONCLUSION: No acute disease. Brian Burnett MD Percutaneous Cholangiogram 2/28/18 0000 Signed Impressions: Service Date/Time: Saturday, June 24, 2017 20:36 - CONCLUSION: Uncomplicated percutaneous cholecystostomy as above. Lalo Wong MD Assessment and Plan Assessment and Plan Severe Sepsis present on admission Pneumonia ? HCAP vs aspiration in health care setting. Acute cholecystitis s/p cholecystostomy tube placement. Seizure new onset ? alcohol related. Fevers: ? drug fever vs new infection. Normal WBC at time of initial consult. Acute resp failure on vent Acute metabolic encephalopathy: sepsis, seizures, metabolic. Acute renal failure: ? lasix, prerenal. Recs Continue Cefepime IV DC Vanco IV Will check levels and cultures in am to decide further dosing. Start Micafungin IV (at risk for fungemia) Central line being DCed today Urine Cx negative Follow repeat blood cultures Follow cultures Follow clinically. Nella Florian MD Jul 07, 2017 13:54
[2017-07-07] MEDS: MICAFUNGIN INJ 150 MG in SODIUM CHLORIDE 0.9% INJ 100 ML IV SCH (15:32)
[2017-07-07] MEDS: PANTOPRAZOLE SODIUM 40 MG VIAL IV PUSH SCH (20:15)
[2017-07-07] MEDS: RESP: ALBUTEROL 2.5 MG/3 ML NEB (PRN) INH (20:49)
[2017-07-08] VITALS (17 sets, daily range): BP systolic 108–140; BP diastolic 55–81; PULSE 77–113; RESP 18–20; TEMP 97.4–98.9; O2SAT 100
[2017-07-08] MEDS: INSULIN NovoLIN REGULAR SUPPLEMENTAL SCALE SQ SCH ×5 (04:00→20:00)
[2017-07-08] MEDS: CHLORHEXIDINE GLUCONATE 2 % 1 PACK (2 CLOTHS) TOP SCH (04:00)
[2017-07-08] MEDS: ARTIFICIAL TEARS OPTH SOLN 15 ML BTL EACH EYE SCH ×3 (04:46→21:01)
[2017-07-08] MEDS: FOSPHENYTOIN SODIUM 100 MG PE/2 ML VIAL IV SCH ×3 (04:46→21:02)
[2017-07-08] MEDS: PROPOFOL 1000 MG/100 ML INJ 100 ML IV PRN ×2 (05:21→15:00)
[2017-07-08] MEDS: METOPROLOL TARTRATE 50 MG TAB PO SCH ×2 (07:45→21:01)
[2017-07-08] MEDS: DOCUSATE SODIUM 50 MG/SENNA 8.6 MG TAB PO SCH ×2 (07:45→21:01)
[2017-07-08] MEDS: NYSTATIN SUSP 500,000 U/5 ML CUP SWISH-SWAL SCH ×4 (07:45→21:00)
[2017-07-08] MEDS: AMIODARONE 200 MG TAB PO SCH ×2 (07:45→21:01)
[2017-07-08] MEDS: levETIRAcetam INJ 500 MG in SODIUM CHLORIDE 0.9% INJ 100 ML IV SCH ×2 (07:45→21:01)
[2017-07-08] MEDS: ENOXAPARIN SODIUM 80 MG/0.8 ML SYRINGE SQ SCH (07:45)
[2017-07-08] MEDS: CHLORHEXIDINE 0.12% (ORAL KIT) 15 ML CUP MT SCH ×2 (07:46→20:00)
[2017-07-08] MEDS: SODIUM CHLORIDE 0.9% FLUSH 10 ML FLUSH IV FLUSH SCH ×2 (07:50→21:00)
[2017-07-08] MEDS: SODIUM CHLOR 0.9% 1000 ML INJ 1,000 ML IV SCH (07:51)
[2017-07-08] MEDS: fentaNYL DRIP 250 ML IV PRN (10:36)
[2017-07-08] MEDS ORDERED: VANCOMYCIN INJ 1,250 MG in SODIUM CHLOR 0.9% 250 ML INJ 250 ML IV SCH (11:00)
[2017-07-08] MEDS: CEFEPIME INJ 1,000 MG in SODIUM CHLORIDE 0.9% INJ 100 ML IV SCH (11:29)
[2017-07-08 11:34] LABS: ALBUMIN 2.3 GM/DL (3.4-5.0); ALKALINE PHOSPHATASE 234 U/L (45-117); ALT (GPT) 56 U/L (10-53); AST (GOT) 80 U/L (15-37); BICARBONATE 21.3 MEQ/L (21.0-32.0); BLOOD UREA NITROGEN 52 MG/DL (7-18); CALCIUM 9.5 MG/DL (8.5-10.1); CHLORIDE 110 MEQ/L (98-107); CREATININE 1.36 MG/DL (0.50-1.00); GLOMERULAR FILTRATION RATE 40 ML/MIN (>89); GLUCOSE,RANDOM 94 MG/DL (74-106); SODIUM (NA) 142 MEQ/L (136-145); TOTAL BILIRUBIN ADULT 0.7 MG/DL (0.2-1.0); TOTAL PROTEIN 7.4 GM/DL (6.4-8.2)
--- NOTE | 2017-07-08 12:02 | HHI.IDPN ---
Subjective Subjective Remarks is a 57-year-old with PMHx of COPD, GERD, hypertension, cardiovascular problems that presented to the hospital on 06/23/2017 for complaints of epigastric and abdominal pain, nausea vomiting, shortness of breath. ID following for leucocytosis, acute cholecystitis and pneumonia. Seizure new onset. Overnight events reviewed No fever No rash No diarrhea WBC normal Antibiotics Cefepime IV Micafungin IV Lines Line sites with no e.o infection Past Medical History reviewed Allergies: Coded Allergies: Sulfa (Sulfonamide Antibiotics) (Verified Allergy, Unknown, 06/23/17) ciprofloxacin (Verified Allergy, Unknown, 06/23/17) hydromorphone (Verified Allergy, Unknown, 06/23/17) Objective . Vital Signs Date Time Temp Pulse Resp B/P (MAP) Pulse Ox O2 Delivery O2 Flow Rate FiO2 07/08/17 11:49 100 30 07/08/17 10:00 93 07/08/17 08:03 100 30 07/08/17 08:00 113 07/08/17 08:00 97.4 113 20 140/77 (98) 100 07/08/17 08:00 30 07/08/17 06:00 95 07/08/17 04:08 100 30 07/08/17 04:00 98 07/08/17 04:00 98.4 98 18 125/81 (96) 100 07/08/17 04:00 30 07/08/17 02:00 103 07/08/17 00:59 100 30 07/08/17 00:00 30 07/08/17 00:00 98.0 107 18 136/69 (91) 100 07/08/17 00:00 107 07/07/17 22:00 102 07/07/17 20:17 100 30 07/07/17 20:00 30 07/07/17 20:00 97 07/07/17 20:00 98.4 97 18 132/63 (86) 100 07/07/17 18:00 93 07/07/17 17:04 100 30 07/07/17 16:00 98.9 93 18 149/77 (101) 100 07/07/17 16:00 30 07/07/17 16:00 93 07/07/17 14:00 92 07/07/17 12:11 100 30 . Laboratory Tests Test 07/07/17 05:27 White Blood Count 10.4 TH/MM3 Red Blood Count 3.65 MIL/MM3 Hemoglobin 8.1 GM/DL Hematocrit 26.3 % Mean Corpuscular Volume 71.9 FL Mean Corpuscular Hemoglobin 22.1 PG Mean Corpuscular Hemoglobin Concent 30.8 % Red Cell Distribution Width 22.1 % Platelet Count 177 TH/MM3 Mean Platelet Volume 8.9 FL Neutrophils (%) (Auto) 86.0 % Lymphocytes (%) (Auto) 7.5 % Monocytes (%) (Auto) 5.9 % Eosinophils (%) (Auto) 0.0 % Basophils (%) (Auto) 0.6 % Neutrophils # (Auto) 8.9 TH/MM3 Lymphocytes # (Auto) 0.8 TH/MM3 Monocytes # (Auto) 0.6 TH/MM3 Eosinophils # (Auto) 0.0 TH/MM3 Basophils # (Auto) 0.1 TH/MM3 CBC Comment DIFF FINAL Differential Comment Laboratory Tests Test 07/07/17 05:27 07/07/17 09:40 07/08/17 10:08 Blood Urea Nitrogen 34 MG/DL 40 MG/DL 52 MG/DL Creatinine 1.85 MG/DL 1.99 MG/DL 1.36 MG/DL Random Glucose 112 MG/DL 131 MG/DL 94 MG/DL Calcium Level 10.6 MG/DL 9.8 MG/DL 9.5 MG/DL Magnesium Level 2.2 MG/DL Sodium Level 140 MEQ/L 139 MEQ/L 142 MEQ/L Potassium Level 4.9 MEQ/L 4.9 MEQ/L 3.7 MEQ/L Chloride Level 101 MEQ/L 101 MEQ/L 110 MEQ/L Carbon Dioxide Level 26.1 MEQ/L 25.1 MEQ/L 21.3 MEQ/L Anion Gap 13 MEQ/L 13 MEQ/L 11 MEQ/L Estimat Glomerular Filtration Rate 28 ML/MIN 26 ML/MIN 40 ML/MIN Total Protein 8.0 GM/DL 7.4 GM/DL Albumin 2.6 GM/DL 2.3 GM/DL Alkaline Phosphatase 214 U/L 234 U/L Aspartate Amino Transf (AST/SGOT) 41 U/L 80 U/L Alanine Aminotransferase (ALT/SGPT) 43 U/L 56 U/L Total Bilirubin 0.8 MG/DL 0.7 MG/DL Microbiology Date/Time Source Procedure Growth Status 07/07/17 11:08 Blood Peripheral Aerobic Blood Culture - Preliminary NO GROWTH IN 1 DAY Resulted 07/07/17 11:08 Blood Peripheral Anaerobic Blood Culture - Preliminary NO GROWTH IN 1 DAY Resulted 07/07/17 11:00 Blood Peripheral Aerobic Blood Culture - Preliminary NO GROWTH IN 1 DAY Resulted 07/07/17 11:00 Blood Peripheral Anaerobic Blood Culture - Preliminary NO GROWTH IN 1 DAY Resulted 07/06/17 21:22 Sputum Endotracheal Gram Stain - Final Complete 07/06/17 21:22 Sputum Endotracheal Sputum Culture - Final LIGHT GROWTH NORMAL RESPIRATORY DELIO Complete 07/07/17 09:25 Urine Catheterized Urine Urine Culture Pending Received Imaging Last Impressions Chest CT 07/07/17 0000 Signed Impressions: Service Date/Time: Friday, July 07, 2017 10:35 - CONCLUSION: 1. Interval resolution of bilateral pleural effusions with improved airspace disease in the lower lobes in comparison to 06/24/2017. 2. Very subtle anterior pericardial effusion. Akira Cullen MD Abdomen/Pelvis CT 07/07/17 0000 Signed Impressions: Service Date/Time: Friday, July 07, 2017 10:35 - CONCLUSION: 1. No loculated fluid collections within the abdomen and pelvis to suggest abscess. Drainage catheter remains in right upper quadrant. 2. Improved basilar airspace consolidation in the lungs since June 24. 3. NG coiled in stomach. Ferguson catheter in decompressed bladder. No bowel obstruction, free fluid or free air. Leandro Palacios MD Chest X-Ray 07/06/17 0600 Signed Impressions: Service Date/Time: Thursday, July 06, 2017 03:59 - CONCLUSION: Resolution of the right lower lobe infiltrate. More focal consolidation now seen involving the left lower lobe. Floyd iTwari Jr., MD Brain MRI 06/27/17 0000 Signed Impressions: Service Date/Time: Tuesday, June 27, 2017 10:00 - CONCLUSION: 1. No acute intracranial abnormality. 2. Mild chronic small vessel ischemic change. Floyd Tiwari Jr., MD Head CT 06/24/17 1645 Signed Impressions: Service Date/Time: Saturday, June 24, 2017 18:00 - CONCLUSION: No acute disease. Brian Burnett MD Percutaneous Cholangiogram 06/24/17 0000 Signed Impressions: Service Date/Time: Wednesday, June 24, 2017 20:36 - CONCLUSION: Uncomplicated percutaneous cholecystostomy as above. Lalo Wong MD Physical Exam GENERAL: This is a well-nourished, well-developed patient, in no apparent distress. SKIN: No rashes, ecchymoses or lesions. Cool and dry. HEAD: Atraumatic. Normocephalic. No temporal or scalp tenderness. EYES: Pupils equal round and reactive. Extraocular motions intact. Positive for scleral icterus. No injection or drainage. ENT: Intubated. NECK: Trachea midline. Supple, nontender, no meningeal signs. CARDIOVASCULAR: HS audible. RESPIRATORY: Clear to auscultation. Breath sounds equal bilaterally. No wheezes , rales, or rhonchi. GASTROINTESTINAL: Abdomen soft, nondistended. Cholecystostomy tube in place RUQ. RUQ tenderness. MUSCULOSKELETAL: Extremities without clubbing, cyanosis, or edema. No joint tenderness, effusion. Pedal edema noted. NEUROLOGICAL: Not arousable. Psych could not be assessed. IV line sites with no e/o infection. Assessment & Plan Remarks Severe Sepsis present on admission Pneumonia ? HCAP vs aspiration in health care setting. Acute cholecystitis s/p cholecystostomy tube placement. Seizure new onset ? alcohol related. Fevers: ? drug fever ? Vanco IV vs new infection. Normal WBC at time of initial consult. Acute resp failure on vent Acute metabolic encephalopathy: sepsis, seizures, metabolic. Acute renal failure: ? lasix, prerenal. Recs Continue Cefepime IV Continue Micafungin IV (at risk for fungemia) Urine Cx negative Follow cultures Follow clinically. Nella Florian MD Jul 08, 2017 12:02
[2017-07-08] MEDS ORDERED: ALBUMIN 25% INJ 100 ML IV ONE (12:15)
[2017-07-08] MEDS ORDERED: DEXAMETHASONE SOD PHOS 20 MG/5 ML VIAL IV PUSH ONE (12:15)
[2017-07-08] MEDS ORDERED: FUROSEMIDE 100 MG/10 ML VIAL IV PUSH ONE (12:15)
--- NOTE | 2017-07-08 12:29 | HHI.CCPN ---
Subjective Remarks/Hospital Course 57-year-old female. Date of admission 06/23/2017. Date of consultation 2017. Past medical history includes Patient originally presented to [facility] ED in atrial fibrillation with rapid ventricular response. Patient was initially started on a diltiazem drip and then was switched over to metoprolol tartrate 50 mg every 8 hours. After conversion, patient became bradycardic. CT abdomen/pelvis revealed a 1 mm gallstone without signs of cholecystitis. Otherwise unremarkable. The patient became more somnolent on the floor and bradycardic with heart rates as low as 42. EKG revealed sinus bradycardia with a first-degree AV block. Patient was arousable and with good pain in 1-2 word responses but fell asleep immediately. On examination patient did have pain especially in her right upper quadrant. CBC revealed hemoglobin 8.4. Ammonia level 35. BNP of 341. Remainder of laboratories are currently pending. Chest x-ray revealed right lower lobe infiltrate versus effusion. Patient did receive 60 mg total of furosemide within the past 24 hours. 3: Afebrile. Status post percutaneous cholecystostomy tube yesterday with aggressive crystalloid resuscitation. Currently resting in bed in no acute distress. Not on vasopressors. 32: Afebrile. A. fib with RVR overnight started on amiodarone drip. Digoxin 0.25 mg and diltiazem 10 mg given prior to initiation of amiodarone. Remains sedated on the ventilator. Possible seizure activity on EEG. Neurology is been counseled.. EPS cardiology and cardiothoracic surgery also been consulted for tachybradycardia syndrome and severe MR. Dr. Sterling/neurosurgeon is clear to trickle feeds today Subjective 3/3: Afebrile. EEG revealed continuous sharp spikes involving right frontal central region. Remains on levetiracetam at 500 mg every 12 hours. Noted possible switch to fosphenytoin per EEG report. Currently on propofol drip at 30 mcg/kg/min. Withdraws bilateral lower exams. Does not withdraw upper extremities currently. MRI brain currently pending. Tolerating trickle feeds at 10 cc an hour. 3: Repeat EEG pending today. Fosphenytoin added to medication regimen yesterday.No change in neurological assessment. Trickle feeds increased to 20 cc/hour with minimal residuals. 06/29: EEG repeated only showed slow waves possibly medication contributory. Patient previously on anticoagulation prior to admission and her to A. fib RVR, but due to concern for indeterminate source of anemia, GI consulted for recommendations and evaluation of risks/ benefits to initiate anticoagulation therapy. Patient continued to have pleural effusions Lasix IV dose 40 mg given. 06/30: Tolerated CPAP trials 2 hours, continues to be nonresponsive. Patient underwent EGD and colonoscopy colonoscopy was within normal limits. EGD revealed small erosions in the first part of the duodenum and a medium-sized ulcer. Recommended per GI to initiate/ resume anticoagulant therapy. Plan for every 12 hours H&H. 07/01: Patient remained on CPAP trials for approximately 2 hours. Patient remains encephalopathic off sedation. Noted hemoglobin drop will continue to closely monitor as therapeutic anticoagulation was initiated yesterday. 07/02: Hemoglobin stable. Patient continues on CPAP with light sedation. With sedation vacation the patient still is not responding to commands, not tracking. EEG shows no epileptiform activity. Patient will require tracheostomy and PEG placement consideration in the near future .Palliative care has been consulted. 07/03: Afebrile. Sedation has been completely discontinued, patient's opens eyes spontaneously movement of lower extremities to pain,but not on command. Patient continues on CPAP for greater than 24 hours. Plan discussion of to define goals of care with family per palliative care team. ET . 07/04: Tmax 100.0. The patient is now tracking visually, and following some commands ,sedation discontinued greater than 48 hours. Noted chest x-ray improvement. Continues on CPAP Extensive discussion with son this a.m. via telephone( Kenneth Walker), patient would not desire a tracheostomy, long-term mechanical ventilation or PEG. Tentative plan for Thursday for patient's 4 children to meet with palliative care to define goals of care. Discussion regarding blood products, patient is to receive blood products if needed. Per patient's family the patient attends a " [employer]" judaism, but is not a baptized Jehovah witness, and continue transfusion of blood products if needed. 07/05: Hemoglobin remained stable. Patient awake and alert responding with yes and no questions. Following commands. Plan for trial of extubation in a.m., after discussion /(with family and palliative care team. Potassium level 3.2., Repletion KCL with 80 meq this a.m.. 07/06 Patient remains on CPAP PS 10, PEEP:5 with FIO2 305. Awake, tolerating tube feeds. Afebrile. 07/07 Patient was extubated yesterday morning however she was reintubated approx 1700 for resp failure and noted to have stridor, she was placed on Cardizem drip overnight 10mg/hr for Afib RVR, sedated with Diprivan and Fentanyl drip. T; 101.0 last night 07/08: Remains intubated heavily sedated. Appears to be breathing comfortably. Remains in atrial fibrillation but rate controlled. No fever. Cultures so far have been negative. Failed extubation last time due to stridor. Check cuff leak and start CPAP trials if tolerated. Given Decadron 10 mg IV 1, Lasix 60 mg IV 1 due to fluid overload Objective Vital Signs Date Time Temp Pulse Resp B/P (MAP) Pulse Ox O2 Delivery O2 Flow Rate FiO2 07/08/17 12:00 77 07/08/17 12:00 98.1 18 108/58 (75) 100 07/08/17 12:00 30 07/06/17 10:00 Nasal Cannula 2 Intake and Output 07/08/17 07/08/17 07/09/17 08:00 16:00 00:00 Intake Total 547 ml Output Total 500 ml Balance 47 ml Result Diagram: 07/07/17 0527 07/08/17 1008 Other Results Microbiology Date/Time Source Procedure Growth Status 07/06/17 21:22 Sputum Endotracheal Gram Stain - Final Complete 07/06/17 21:22 Sputum Endotracheal Sputum Culture - Final LIGHT GROWTH NORMAL RESPIRATORY DELIO Complete Imaging Last Impressions Chest X-Ray 07/06/17 0600 Signed Impressions: Service Date/Time: Thursday, July 06, 2017 03:59 - CONCLUSION: Resolution of the right lower lobe infiltrate. More focal consolidation now seen involving the left lower lobe. Floyd Twiari Jr., MD Brain MRI 06/27/17 0000 Signed Impressions: Service Date/Time: Tuesday, June 27, 2017 10:00 - CONCLUSION: 1. No acute intracranial abnormality. 2. Mild chronic small vessel ischemic change. Floyd Tiwari Jr., MD Head CT 06/24/17 1645 Signed Impressions: Service Date/Time: Saturday, June 24, 2017 18:00 - CONCLUSION: No acute disease. Brian Burnett MD Percutaneous Cholangiogram 06/24/17 0000 Signed Impressions: Service Date/Time: Saturday, June 24, 2017 20:36 - CONCLUSION: Uncomplicated percutaneous cholecystostomy as above. Lalo Wong MD Abdomen/Pelvis CT 06/24/17 0000 Signed Impressions: Service Date/Time: Saturday, June 24, 2017 18:05 - CONCLUSION: 1. Bibasilar patchy infiltrates (right worse than left) consistent with probable pneumonia. Clinical correlation is recommended. 2. Worsening pleural effusions which are moderate in size on the right and small on the left. 3. Diffuse peripheral perfusion defects involving the kidneys suggestive of decreased renal function or possible interval development of bilateral pyelonephritis. Clinical correlation is recommended. 4. Gallbladder wall thickening and vicarious excretion of contrast via the gallbladder. Clinical correlation is recommended to rule out cholecystitis. 5. Interval development of ascites within the abdomen. 6. Thickening of the wall of the ascending colon raising possibility of colitis. Clinical correlation is recommended. Brian Burnett MD Objective Remarks GENERAL: 57-year-old female currently orotracheally intubated, heavily sedated SKIN: Warm and dry. No rash. Well perfused HEAD: Atraumatic. Normocephalic. EYES: Pupils equal and round about 2 mm bilaterally and brisk. No scleral icterus. No injection or drainage. ENT: No nasal bleeding or discharge. Orotracheally intubated NECK: Trachea midline. No JVD. CARDIOVASCULAR: Irregular rhythm, rate controlled. S1, S2. No S4. Without murmur RESPIRATORY: Air entry diminished at the bases. No wheezing GASTROINTESTINAL: Abdomen soft, tender to palpation in the right upper quadrant and epigastric region. Cholecystostomy tube draining 255 ml in 24 hours. MUSCULOSKELETAL: Extremities with trace lower extremity peripheral edema. No obvious deformities. 1+ edema right upper extremity NEUROLOGICAL: Spontaneous eye opening. Moves bilateral lower extremities, left upper extremity. Date of Insertion: Jun 24, 2017 Line: Central Venous Catheter Side: Right Location: Subclavian A/P Assessment and Plan Neuro/Psych: Acute encephalopathy likely toxic metabolic UDS positive for barbiturates Depression/anxiety Seizure questionable On Diprivan/Fentnayl infusion for sedation. Daily sedation vacation Acetaminophen 650 mg by tube. every 6 hours as needed fever/pain CT brain 06/24 revealed no acute intracranial findings EEG 06/25 revealed right frontal lobe sharp activity indicative of epileptiform. Loaded with levetiracetam 1 g IV 1 on 06/26 followed by 500 mg IV twice daily. Repeat EEG 06/26 revealed continuous sharps in right frontal region Repeat EEG 06/28- no epileptiform activity Neurology- Dr. Shannon following 06/27 MRI brain-no acute intracranial abnormality On Dilantin 100mg Q8 and Keppra per Neuro, follow Dilantin level Dilantin level only 3.2 yesterday, increase fosphenytoin to 150 mg every 8 hours CV: Atrial fibrillation rate controlled History of atrial fibrillation Hypertension Elevated BNP Lactic acidosis resolved Severe MR Severe TR Acute diastolic heart failure Tachybradycardia syndrome Amiodarone 200mg BID, Lopressor 50mg Q12, On Cardizem drip 10 mg/hr 2D echocardiogram revealed EF 45-50%. Decreased LV systolic function. Bilateral atrial enlargement. Severe MR and TR. Cardiology is following EPS consult secondary to tachybradycardia syndrome-no intervention at this time 05/[address] surgery consulted to evaluate severe MR- Dr. Paul following-no intervention at this time 05/29 clinical status Lactate is cleared 06/26 Labetalol PRN for SBP > 160 IV Lasix 60 mg 1 and placed on 20 every 8 hours Previous extubation failure most likely from stridor but severe MR might also significantly contributing Resp: Acute respiratory failure Intubated 06/24, extubated and reintubated on 07/06 Stridor Right lower lobe infiltrate/pleural effusion Continue with vent support keep sats >92% Ventilator bundle, Bronchodilators Off Solumederol 40mg Q6 for stridor. Give Decadron 10 mg IV 1 Previous extubation failure most likely from stridor but severe MR might also significantly contributing Use BiPAP after extubation, if successfully extubated, also written for racemic epinephrine as needed if extubated GI: Gastroesophageal reflux disease Cholelithiasis on ultrasound 06/23 possibly acute cholecystitis Hypoalbuminemia CT abdomen/pelvis 06/23 revealed a 1 mm gallstone. No signs of cholecystitis. Otherwise unremarkable CT abdomen/pelvis 06/24 revealed right greater than left pleural effusions. Gallbladder wall thickening with voracious dye excretion, descending colon edema and bilateral perinephric stranding Status post cholecystostomy tube by IR 06/24- monitor output, fluid cx: no growth General surgery recommended continue cholecystostomy tube placement. Outpatient follow-up for cholecystectomy. Tube feeds Vital high at 55 cc/hour on pantoprazole 40 mg IV. daily for gastroesophageal reflux disease Docusate sodium/senna 1 tablet twice daily for bowel regimen GI Dr. Naqvi - S/P colonoscopy and endoscopy 06/30, upper endoscopy revealed medium-sized ulcer first part of duodenum, multiple small erosions gastric antrum. Colon- Normal mucosa : Acute kidney injury Monitor renal function, electrolytes replacement per protocol. d/c NS@100ml/hr. resume IV Lasix as above with albumin Cr: improving Patient is fluid overloaded approximately 9 kg Endo: Sliding-scale insulin Novulin R with Accu-Cheks every 4 hours to maintain euglycemia/low regimen TSH -1.76 Heme: Microcytic hypochromic anemia Leukocytosis Resolved DIC Thrombocytopenia Monitor CBC ID: Sepsis likely acute cholecystitis Patient has been on Zosyn since 06/24 and Vanco since 06/30- All previous cultures negative. C-diff PCR negative on 07/06 All cultures negative today Currently on cefepime and micafungin. Vancomycin DC'd yesterday by ID 06/25 Urine Legionella pneumococcal antigens no growth Influenza negative Pertinent cultures 06/25 -bile -no growth 06/25 -sputum -no growth 06/24 -blood cultures 4 -no growth 06/24 -urine -p no growth MSK: PT evaluate and treat Daily functional maintenance Multi-Podus boots bilaterally Prophylaxis -GI -pantoprazole -DVT -SCDs, changed Lovenox 80mg daily given worsening renal function. Palliative care is following Level 3 Kena Dover MD Jul 08, 2017 12:29
[2017-07-08] MEDS: ALBUMIN 25% INJ 100 ML IV SCH ×2 (12:30→21:01)
[2017-07-08] MEDS ORDERED: RESP: RACEPINEPHRINE 2.25% 0.5 ML NEB NEB PRN (12:30)
[2017-07-08 12:41] LABS: AUTOMATED NEUTROPHIL # 6.1 TH/MM3 (1.8-7.7); BASOPHIL # 0.1 TH/MM3 (0-0.2); EOSINOPHIL # 0.2 TH/MM3 (0-0.4); EOSINOPHIL % 2.1 % (0.0-4.0); HEMATOCRIT 23.7 % (35.0-46.0); HEMOGLOBIN 7.2 GM/DL (11.6-15.3); LYMPH % 21.6 % (9.0-44.0); MEAN CELL VOLUME 73.7 FL (80.0-100.0); MEAN CORPUSCULAR HEMOGLOBIN 22.3 PG (27.0-34.0); MEAN CORPUSCULAR HGB CONC 30.2 % (32.0-36.0); MEAN PLATELET VOLUME 9.3 FL (7.0-11.0); MONO % 9.2 % (0.0-8.0); MONOCYTE # 0.8 TH/MM3 (0-0.9); NEUT % 66.1 % (16.0-70.0); PLATELET COUNT 177 TH/MM3 (150-450); RED BLOOD COUNT 3.21 MIL/MM3 (4.00-5.30); WHITE BLOOD COUNT 9.3 TH/MM3 (4.0-11.0)
[2017-07-08] MEDS ORDERED: DEXMEDETOMIDINE INJ 200 MCG in SODIUM CHLORIDE 0.9% INJ 50 ML IV PRN (14:00)
[2017-07-08] MEDS ORDERED: RASS Change Order XX ONE (14:30)
[2017-07-08] MEDS: POTASSIUM CHLORIDE 25 MEQ EFFERVESCENT TAB PO SCH (14:46)
--- NOTE | 2017-07-08 14:55 | RADRPT ---
EXAM DATE/TIME: 07/08/2017 13:35 [facility] COMPARISON: CHEST SINGLE AP, July 06, 2017, 17:35. INDICATIONS : Respiratory disease. MEDICAL HISTORY : None. SURGICAL HISTORY : None. ENCOUNTER: Subsequent ACUITY: 2 weeks PAIN SCORE: Non-responsive. LOCATION: chest FINDINGS: A single view of the chest demonstrates endotracheal tube in good position. NG coiled in stomach. Esteban ateral mild basilar airspace disease, stable to slightly improved from July 06. No pneumothorax. CONCLUSION: 1. Basilar airspace disease slightly improved from July 06. Endotracheal tube and nasogastric tube u nchanged. Leandro Palacios MD on July 08, 2017 at 14:51 Board Certified Radiologist. This report was verified electronically.
--- NOTE | 2017-07-08 15:06 | HHI.HCPN ---
Reason for visit a. To assist with evaluation and management of symptoms including: dyspnea. pain b. To assist medical decision maker(s) with: better understanding of current medical conditions; weighing benefits/burdens of medical treatment options; making medical treatment decisions. Subjective/Interval History Patient seen in follow-up on comfort, goals. Pt remains on mech vent (was extubated/reintubation 07/06). ID consulted for for fever. Pt started on micafungin, high risk for fungemia. Repeat BC pending. BUN 51/creatinine 1.36. H&H down slightly 7.2/23.7. s/p lasix , decadron, albumin. Remains on sedation diprivan, fentanyl. Afib, rate controlled, 70s. CPAP trial earlier, RR 40s per nursing. Planned for repeat CPAP trial, poss extubation in coming day(s) pending pt clinical course. Pt examined in room, no visitors present. Sedated. Does open eyes to touch/ verbal. Does not stay awake/alert. Localizes to touch on 4 extremities, does not follow commands. Nursing indicates pt has been following commands. Following exam call to son Kenneth. . Family/friend interactions Call to diana Cooper, who is spokesperson for 4 children. Updated on current condition, treatments, assessment, poss vent weaning/ extubation in coming days. Review of code status/reintubation status. Review that if pt cont to require mech vent or intubation would likely need tracheostomy to cont aggressive tx. He remains in communication w siblings. He indicates that pt would not want trach, and that they would likely elect DNR/ DNI if pt again extubated. They wish to revisit this at time of actual extubation. For now they are hoping she will improve, though understand she may not , they are open to ongoing discussion as clinical course evolves. ./ Advance Directives Living Will: Never completed Health Care Surrogate: Never completed Durable Power of Place Change Roof Bolter: Never completed Objective Vital Signs Date Time Temp Pulse Resp B/P (MAP) Pulse Ox O2 Delivery O2 Flow Rate FiO2 07/08/17 13:37 30 07/08/17 12:23 30 07/08/17 12:00 77 07/08/17 12:00 98.1 77 18 108/58 (75) 100 07/08/17 12:00 30 07/08/17 11:49 100 30 07/08/17 10:00 93 3/14/18 08:03 100 30 07/08/17 08:00 113 07/08/17 08:00 97.4 113 20 140/77 (98) 100 07/08/17 08:00 30 07/08/17 06:00 95 07/08/17 04:08 100 30 07/08/17 04:00 98 07/08/17 04:00 98.4 98 18 125/81 (96) 100 07/08/17 04:00 30 07/08/17 02:00 103 07/08/17 00:59 100 30 07/08/17 00:00 30 07/08/17 00:00 98.0 107 18 136/69 (91) 100 07/08/17 00:00 107 07/07/17 22:00 102 07/07/17 20:17 100 30 07/07/17 20:00 30 07/07/17 20:00 97 07/07/17 20:00 98.4 97 18 132/63 (86) 100 07/07/17 18:00 93 07/07/17 17:04 100 30 07/07/17 16:00 98.9 93 18 149/77 (101) 100 07/07/17 16:00 30 07/07/17 16:00 93 Intake & Output 07/08/17 07/08/17 07:00 19:00 Intake Total 547 ml 2065 ml Output Total 500 ml Balance 47 ml 2065 ml Intake Oral 0 ml IV Total 100 ml 2065 ml Tube Feeding 347 ml Other 100 ml Output Urine Total 375 ml Drainage Total 125 ml # Bowel Movements 0 Physical Exam 1520 CONSTITUTIONAL/GENERAL: This is an adequately nourished patient, sedated on mech vent TUBES/LINES/DRAINS: RT SC central line, arguello catheter, soft wrist restraints. ETT SKIN: slight jaundice, rashes, or lesions. Skin warm/dry NECK: Trachea midline. Supple, nontender. No palpable thyroid enlargement or nodularity. CARDIOVASCULAR: Irregular rate and rhythm without murmur, rate 70s. Peripheral pulses symmetric. RESPIRATORY/CHEST: Symmetric, unlabored respirations via mech vent.Clear to auscultation. Breath sounds equal bilaterally. GASTROINTESTINAL: Abdomen soft, no apparent tenderness (limited assess 2/2 condition), nondistended. No palpable masses. Bowel sounds present.Drain from rt side sm amt brownish yellow present GENITOURINARY: Without palpable bladder distension. Arguello catheter in place. NEUROLOGICAL: sedated on mech vent. no eye opening. Minimally responsive to my exam. +withdrawal to pain stimuli on extremities. PSYCHIATRIC: No obvious anxiety/depression- limited assessment due to clinical condition Diagnostic Tests Laboratory Laboratory Tests Test 07/05/17 16:20 07/06/17 02:55 07/06/17 05:20 07/06/17 12:00 Potassium Level 3.6 MEQ/L (3.5-5.1) 3.7 MEQ/L (3.5-5.1) White Blood Count 9.6 TH/MM3 (4.0-11.0) Red Blood Count 3.56 MIL/MM3 (4.00-5.30) Hemoglobin 7.8 GM/DL (11.6-15.3) Hematocrit 25.6 % (35.0-46.0) Mean Corpuscular Volume 71.9 FL (80.0-100.0) Mean Corpuscular Hemoglobin 21.8 PG (27.0-34.0) Mean Corpuscular Hemoglobin Concent 30.3 % (32.0-36.0) Red Cell Distribution Width 22.1 % (11.6-17.2) Platelet Count 124 TH/MM3 (150-450) Mean Platelet Volume 9.3 FL (7.0-11.0) Blood Urea Nitrogen 15 MG/DL (7-18) Creatinine 0.76 MG/DL (0.50-1.00) Random Glucose 125 MG/DL (74-106) Calcium Level 9.4 MG/DL (8.5-10.1) Phosphorus Level 3.3 MG/DL (2.5-4.9) Magnesium Level 2.1 MG/DL (1.5-2.5) Sodium Level 143 MEQ/L (136-145) Chloride Level 107 MEQ/L (98-107) Carbon Dioxide Level 29.2 MEQ/L (21.0-32.0) Anion Gap 7 MEQ/L (5-15) Estimat Glomerular Filtration Rate 78 ML/MIN (>89) Blood Gas Puncture Site LT RADIAL Blood Gas Patient Temperature 98.6 Blood Gas HCO3 26 mmol/L (22-26) Blood Gas Base Excess 1.5 mmol/L (-2-2) Blood Gas Oxygen Saturation 95 % (90-100) Arterial Blood pH 7.42 (7.380-7.420) Arterial Blood Partial Pressure CO2 40 mmHg (38-42) Arterial Blood Partial Pressure O2 102 mmHg (61-120) Arterial Blood Oxygen Content 10.7 Vol % (12.0-20.0) Arterial Blood Carboxyhemoglobin 1.8 % (0-4) Arterial Blood Methemoglobin 1.1 % (0-2) Blood Gas Hemoglobin 7.8 G/DL (12.0-16.0) Oxygen Delivery Device VENT Blood Gas Ventilator Setting SEE COMMENTS Blood Gas Inspired Oxygen 30 % Stool C. difficile Toxin (PCR) NEGATIVE (NEGATIVE) Stl C. difficile Toxin Epiderm 027 PRESUMPTIVE NEGATIVE Test 07/06/17 19:24 07/07/17 05:27 07/07/17 09:25 07/07/17 09:40 Blood Gas Puncture Site LT RADIAL Blood Gas Patient Temperature 98.6 Blood Gas HCO3 26 mmol/L (22-26) Blood Gas Base Excess 2.5 mmol/L (-2-2) Blood Gas Oxygen Saturation 98 % (90-100) Arterial Blood pH 7.46 (7.380-7.420) Arterial Blood Partial Pressure CO2 38 mmHg (38-42) Arterial Blood Partial Pressure O2 440 mmHg (61-120) Arterial Blood Oxygen Content 14.0 Vol % (12.0-20.0) Arterial Blood Carboxyhemoglobin 1.7 % (0-4) Arterial Blood Methemoglobin 1.0 % (0-2) Blood Gas Hemoglobin 9.4 G/DL (12.0-16.0) Oxygen Delivery Device VENTILATOR Blood Gas Ventilator Setting PRVC18/500/1.0/=5 Blood Gas Inspired Oxygen 100 % White Blood Count 10.4 TH/MM3 (4.0-11.0) Red Blood Count 3.65 MIL/MM3 (4.00-5.30) Hemoglobin 8.1 GM/DL (11.6-15.3) Hematocrit 26.3 % (35.0-46.0) Mean Corpuscular Volume 71.9 FL (80.0-100.0) Mean Corpuscular Hemoglobin 22.1 PG (27.0-34.0) Mean Corpuscular Hemoglobin Concent 30.8 % (32.0-36.0) Red Cell Distribution Width 22.1 % (11.6-17.2) Platelet Count 177 TH/MM3 (150-450) Mean Platelet Volume 8.9 FL (7.0-11.0) Neutrophils (%) (Auto) 86.0 % (16.0-70.0) Lymphocytes (%) (Auto) 7.5 % (9.0-44.0) Monocytes (%) (Auto) 5.9 % (0.0-8.0) Eosinophils (%) (Auto) 0.0 % (0.0-4.0) Basophils (%) (Auto) 0.6 % (0.0-2.0) Neutrophils # (Auto) 8.9 TH/MM3 (1.8-7.7) Lymphocytes # (Auto) 0.8 TH/MM3 (1.0-4.8) Monocytes # (Auto) 0.6 TH/MM3 (0-0.9) Eosinophils # (Auto) 0.0 TH/MM3 (0-0.4) Basophils # (Auto) 0.1 TH/MM3 (0-0.2) CBC Comment DIFF FINAL Differential Comment Blood Urea Nitrogen 34 MG/DL (7-18) 40 MG/DL (7-18) Creatinine 1.85 MG/DL (0.50-1.00) 1.99 MG/DL (0.50-1.00) Random Glucose 112 MG/DL (74-106) 131 MG/DL (74-106) Calcium Level 10.6 MG/DL (8.5-10.1) 9.8 MG/DL (8.5-10.1) Magnesium Level 2.2 MG/DL (1.5-2.5) Sodium Level 140 MEQ/L (136-145) 139 MEQ/L (136-145) Potassium Level 4.9 MEQ/L (3.5-5.1) 4.9 MEQ/L (3.5-5.1) Chloride Level 101 MEQ/L (98-107) 101 MEQ/L (98-107) Carbon Dioxide Level 26.1 MEQ/L (21.0-32.0) 25.1 MEQ/L (21.0-32.0) Anion Gap 13 MEQ/L (5-15) 13 MEQ/L (5-15) Estimat Glomerular Filtration Rate 28 ML/MIN (>89) 26 ML/MIN (>89) Urine Color DARK-YELLOW (YELLW/STRAW) Urine Turbidity CLOUDY (CLEAR) Urine pH 5.0 (5.0-8.5) Urine Specific [place] 1.025 (1.002-1.035) Urine Protein 30 mg/dL (NEG-TRACE) Urine Glucose (UA) NEG mg/dL (NEG) Urine Ketones NEG mg/dL (NEG) Urine Occult Blood SMALL (NEG) Urine Nitrite NEG (NEG) Urine Bilirubin NEG (NEG) Urine Urobilinogen LESS THAN 2.0 MG/DL (LESS Urine Leukocyte Esterase NEG (NEG) Urine RBC 3 /hpf (0-3) Urine WBC 14 /hpf (0-5) Urine Bacteria OCC /hpf (NONE) Urine Granular Casts 26 /lpf (NONE) Urine Mucus FEW /lpf (OCC) Microscopic Urinalysis Comment CATH-CULTURE IND Total Protein 8.0 GM/DL (6.4-8.2) Albumin 2.6 GM/DL (3.4-5.0) Alkaline Phosphatase 214 U/L (45-117) Aspartate Amino Transf (AST/SGOT) 41 U/L (15-37) Alanine Aminotransferase (ALT/SGPT) 43 U/L (10-53) Total Bilirubin 0.8 MG/DL (0.2-1.0) Phenytoin (Dilantin) Level 3.2 MCG/ML (10.0-20.0) Test 07/08/17 00:57 07/08/17 10:08 07/08/17 11:43 Urine Eosinophils NONE SEEN /HPF (NONE SEEN) Blood Urea Nitrogen 52 MG/DL (7-18) Creatinine 1.36 MG/DL (0.50-1.00) Random Glucose 94 MG/DL (74-106) Total Protein 7.4 GM/DL (6.4-8.2) Albumin 2.3 GM/DL (3.4-5.0) Calcium Level 9.5 MG/DL (8.5-10.1) Alkaline Phosphatase 234 U/L (45-117) Aspartate Amino Transf (AST/SGOT) 80 U/L (15-37) Alanine Aminotransferase (ALT/SGPT) 56 U/L (10-53) Total Bilirubin 0.7 MG/DL (0.2-1.0) Sodium Level 142 MEQ/L (136-145) Potassium Level 3.7 MEQ/L (3.5-5.1) Chloride Level 110 MEQ/L (98-107) Carbon Dioxide Level 21.3 MEQ/L (21.0-32.0) Anion Gap 11 MEQ/L (5-15) Estimat Glomerular Filtration Rate 40 ML/MIN (>89) White Blood Count 9.3 TH/MM3 (4.0-11.0) Red Blood Count 3.21 MIL/MM3 (4.00-5.30) Hemoglobin 7.2 GM/DL (11.6-15.3) Hematocrit 23.7 % (35.0-46.0) Mean Corpuscular Volume 73.7 FL (80.0-100.0) Mean Corpuscular Hemoglobin 22.3 PG (27.0-34.0) Mean Corpuscular Hemoglobin Concent 30.2 % (32.0-36.0) Red Cell Distribution Width 22.0 % (11.6-17.2) Platelet Count 177 TH/MM3 (150-450) Mean Platelet Volume 9.3 FL (7.0-11.0) Neutrophils (%) (Auto) 66.1 % (16.0-70.0) Lymphocytes (%) (Auto) 21.6 % (9.0-44.0) Monocytes (%) (Auto) 9.2 % (0.0-8.0) Eosinophils (%) (Auto) 2.1 % (0.0-4.0) Basophils (%) (Auto) 1.0 % (0.0-2.0) Neutrophils # (Auto) 6.1 TH/MM3 (1.8-7.7) Lymphocytes # (Auto) 2.0 TH/MM3 (1.0-4.8) Monocytes # (Auto) 0.8 TH/MM3 (0-0.9) Eosinophils # (Auto) 0.2 TH/MM3 (0-0.4) Basophils # (Auto) 0.1 TH/MM3 (0-0.2) CBC Comment DIFF FINAL Differential Comment Result Diagram: 07/08/17 1143 07/08/17 1008 Microbiology Microbiology Date/Time Source Procedure Growth Status 07/07/17 11:08 Blood Peripheral Aerobic Blood Culture - Preliminary NO GROWTH IN 1 DAY Resulted 07/07/17 11:08 Blood Peripheral Anaerobic Blood Culture - Preliminary NO GROWTH IN 1 DAY Resulted 07/07/17 11:00 Blood Peripheral Aerobic Blood Culture - Preliminary NO GROWTH IN 1 DAY Resulted 07/07/17 11:00 Blood Peripheral Anaerobic Blood Culture - Preliminary NO GROWTH IN 1 DAY Resulted 07/06/17 21:22 Sputum Endotracheal Gram Stain - Final Complete 07/06/17 21:22 Sputum Endotracheal Sputum Culture - Final LIGHT GROWTH NORMAL RESPIRATORY DELIO Complete 07/07/17 09:25 Urine Catheterized Urine Urine Culture - Preliminary NO GROWTH IN 24 HOURS. 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 Spiritual:none listed. Legal:Pt is . Currently has 4 children Billy Mcqueen, Kenneth [phone] Yaneth; [phone] Health care proxy are the 4 children. Ethical issues impacting care:none Important Contacts Son: Kenneth [phone] dtr Yaneth [phone]. dtr Charisse son Billy [phone] . Prognosis 57 year old prognosis is guarded. Code Status: Full Code Plan ==Code: FULL CODE == Decision maker- pt currently does not capacity to make medical decisions.pt is . [place] advance directives. [place] proxy would be pt's four children: Kenneth, Yaneth, Charisse, and Billy. (family indicated they are OK w Kenneth serving as spokesperson.) == symptoms: pain- acute cholecystitis, now bedbound. +abd tender to exam. Cautious use opiates 2/2 AMS/encephalopathy,recent medical extubation. dyspnea- on mechanical ventilation--> medically extubated 07/06, tolerating room air-->> later reintubated. CXR some improvement RLL, + consolidation LLL.CT chest neg acute process encephalopathy- hx ? seizures. ? toxic metabolic encephalopathy.ammonia 07/03 =10. 3 confused, not consistently following commands == goals of care: updated family 07/08/17: Updated on current condition, treatments, assessment, poss vent weaning/extubation in coming days. Review of code status/reintubation status. Review that if pt cont to require mech vent or intubation would likely need tracheostomy to cont aggressive tx. He remains in communication w siblings. He indicates that pt would not want trach, and that they would likely elect DNR/DNI if pt again extubated. They wish to revisit this at time of actual extubation. For now they are hoping she will improve, though understand she may not , they are open to ongoing discussion as clinical course evolves. == palliative care will follow to make recommendations for symptoms and to review goals of care as pt's condition evolves. Attestation To help prompt me to consider important information that might be impacting today's encounter and assessment, information from prior notes written by myself or my colleagues may have been "brought forward" into today's note. My signature on this note, however, is an attestation that I personally performed the exam, history, and/or decision-making noted today, and, unless otherwise indicated, the interactions with patient, family, and staff as well as the review of records all occurred today. I also attest that the listed assessment and stated plan reflect my best clinical judgment today based on the combination of historical information, prior notes, and today's exam/ interactions. When time spent is documented, it refers only to time spent today by the signer, or if indicated, combined time spent today by collaborating physician/nurse practitioner. Idalia Riggs Jul 08, 2017 15:06
[2017-07-08] MEDS: MICAFUNGIN INJ 150 MG in SODIUM CHLORIDE 0.9% INJ 100 ML IV SCH (15:11)
[2017-07-08] MEDS: SODIUM CHLORIDE 0.9% FLUSH 10 ML FLUSH IV FLUSH PRN (16:58)
[2017-07-08] MEDS: FUROSEMIDE 20 MG/2 ML VIAL IV PUSH SCH (16:58)
[2017-07-08] MEDS: PANTOPRAZOLE SODIUM 40 MG VIAL IV PUSH SCH (21:01)
[2017-07-09] VITALS (19 sets, daily range): BP systolic 113–171; BP diastolic 59–97; PULSE 87–120; RESP 14–24; TEMP 98.7–98.9; O2SAT 94–100
[2017-07-09] MEDS: CHLORHEXIDINE GLUCONATE 2 % 1 PACK (2 CLOTHS) TOP SCH (04:00)
[2017-07-09] MEDS: INSULIN NovoLIN REGULAR SUPPLEMENTAL SCALE SQ SCH ×6 (04:00→20:00)
[2017-07-09] MEDS: FOSPHENYTOIN SODIUM 100 MG PE/2 ML VIAL IV SCH ×3 (05:57→22:56)
[2017-07-09] MEDS: ARTIFICIAL TEARS OPTH SOLN 15 ML BTL EACH EYE SCH ×3 (05:57→22:56)
[2017-07-09] MEDS ORDERED: FOSPHENYTOIN SODIUM 500 MG PE/10 ML VIAL IV ONE (08:30)
--- NOTE | 2017-07-09 08:32 | HHI.CCPN ---
Subjective Remarks/Hospital Course 57-year-old female. Date of admission 06/23/2017. Date of consultation 2017. Past medical history includes Patient originally presented to [facility] ED in atrial fibrillation with rapid ventricular response. Patient was initially started on a diltiazem drip and then was switched over to metoprolol tartrate 50 mg every 8 hours. After conversion, patient became bradycardic. CT abdomen/pelvis revealed a 1 mm gallstone without signs of cholecystitis. Otherwise unremarkable. The patient became more somnolent on the floor and bradycardic with heart rates as low as 42. EKG revealed sinus bradycardia with a first-degree AV block. Patient was arousable and with good pain in 1-2 word responses but fell asleep immediately. On examination patient did have pain especially in her right upper quadrant. CBC revealed hemoglobin 8.4. Ammonia level 35. BNP of 341. Remainder of laboratories are currently pending. Chest x-ray revealed right lower lobe infiltrate versus effusion. Patient did receive 60 mg total of furosemide within the past 24 hours. 3: Afebrile. Status post percutaneous cholecystostomy tube yesterday with aggressive crystalloid resuscitation. Currently resting in bed in no acute distress. Not on vasopressors. 32: Afebrile. A. fib with RVR overnight started on amiodarone drip. Digoxin 0.25 mg and diltiazem 10 mg given prior to initiation of amiodarone. Remains sedated on the ventilator. Possible seizure activity on EEG. Neurology is been counseled.. EPS cardiology and cardiothoracic surgery also been consulted for tachybradycardia syndrome and severe MR. Dr. Sterling/neurosurgeon is clear to trickle feeds today Subjective 3/3: Afebrile. EEG revealed continuous sharp spikes involving right frontal central region. Remains on levetiracetam at 500 mg every 12 hours. Noted possible switch to fosphenytoin per EEG report. Currently on propofol drip at 30 mcg/kg/min. Withdraws bilateral lower exams. Does not withdraw upper extremities currently. MRI brain currently pending. Tolerating trickle feeds at 10 cc an hour. 3: Repeat EEG pending today. Fosphenytoin added to medication regimen yesterday.No change in neurological assessment. Trickle feeds increased to 20 cc/hour with minimal residuals. 06/29: EEG repeated only showed slow waves possibly medication contributory. Patient previously on anticoagulation prior to admission and her to A. fib RVR, but due to concern for indeterminate source of anemia, GI consulted for recommendations and evaluation of risks/ benefits to initiate anticoagulation therapy. Patient continued to have pleural effusions Lasix IV dose 40 mg given. 06/30: Tolerated CPAP trials 2 hours, continues to be nonresponsive. Patient underwent EGD and colonoscopy colonoscopy was within normal limits. EGD revealed small erosions in the first part of the duodenum and a medium-sized ulcer. Recommended per GI to initiate/ resume anticoagulant therapy. Plan for every 12 hours H&H. 07/01: Patient remained on CPAP trials for approximately 2 hours. Patient remains encephalopathic off sedation. Noted hemoglobin drop will continue to closely monitor as therapeutic anticoagulation was initiated yesterday. 07/02: Hemoglobin stable. Patient continues on CPAP with light sedation. With sedation vacation the patient still is not responding to commands, not tracking. EEG shows no epileptiform activity. Patient will require tracheostomy and PEG placement consideration in the near future .Palliative care has been consulted. 07/03: Afebrile. Sedation has been completely discontinued, patient's opens eyes spontaneously movement of lower extremities to pain,but not on command. Patient continues on CPAP for greater than 24 hours. Plan discussion of to define goals of care with family per palliative care team. ET . 07/04: Tmax 100.0. The patient is now tracking visually, and following some commands ,sedation discontinued greater than 48 hours. Noted chest x-ray improvement. Continues on CPAP Extensive discussion with son this a.m. via telephone( Kenneth Walker), patient would not desire a tracheostomy, long-term mechanical ventilation or PEG. Tentative plan for Thursday for patient's 4 children to meet with palliative care to define goals of care. Discussion regarding blood products, patient is to receive blood products if needed. Per patient's family the patient attends a " [employer]" [employer], but is not a baptized Jehov[employer] witness, and continue transfusion of blood products if needed. 07/05: Hemoglobin remained stable. Patient awake and alert responding with yes and no questions. Following commands. Plan for trial of extubation in a.m., after discussion /(with family and palliative care team. Potassium level 3.2., Repletion KCL with 80 meq this a.m.. 07/06 Patient remains on CPAP PS 10, PEEP:5 with FIO2 305. Awake, tolerating tube feeds. Afebrile. 07/07 Patient was extubated yesterday morning however she was reintubated approx 1700 for resp failure and noted to have stridor, she was placed on Cardizem drip overnight 10mg/hr for Afib RVR, sedated with Diprivan and Fentanyl drip. T; 101.0 last night 07/08: Remains intubated heavily sedated. Appears to be breathing comfortably. Remains in atrial fibrillation but rate controlled. No fever. Cultures so far have been negative. Failed extubation last time due to stridor. Check cuff leak and start CPAP trials if tolerated. Given Decadron 10 mg IV 1, Lasix 60 mg IV 1 due to fluid overload 07/09: Patient remains intubated sedated with propofol and fentanyl. Urine output improved with Lasix 2.7 L in 24 hours. There was no cuff leak when checked yesterday, but patient has just 8.0 tube. Attempt CPAP trial again with parameters, ABG. Mitral regurgitation could be problematic with extubation if severe Objective Vital Signs Date Time Temp Pulse Resp B/P (MAP) Pulse Ox O2 Delivery O2 Flow Rate FiO2 07/09/17 08:04 100 30 07/09/17 06:00 102 07/09/17 04:00 98.8 18 130/67 (88) 07/06/17 10:00 Nasal Cannula 2 Intake and Output 07/09/17 07/09/17 07/10/17 08:00 16:00 00:00 Intake Total 605 ml Output Total 1100 ml Balance -495 ml Result Diagram: 07/08/17 1143 07/08/17 1008 Other Results Microbiology Date/Time Source Procedure Growth Status 07/06/17 21:22 Sputum Endotracheal Gram Stain - Final Complete 07/06/17 21:22 Sputum Endotracheal Sputum Culture - Final LIGHT GROWTH NORMAL RESPIRATORY DELIO Complete Imaging Last Impressions Chest X-Ray 07/06/17 0600 Signed Impressions: Service Date/Time: Thursday, July 06, 2017 03:59 - CONCLUSION: Resolution of the right lower lobe infiltrate. More focal consolidation now seen involving the left lower lobe. Floyd Tiwari Jr., MD Brain MRI 06/27/17 0000 Signed Impressions: Service Date/Time: Tuesday, June 27, 2017 10:00 - CONCLUSION: 1. No acute intracranial abnormality. 2. Mild chronic small vessel ischemic change. Floyd Tiwari Jr., MD Head CT 06/24/17 1645 Signed Impressions: Service Date/Time: Saturday, June 24, 2017 18:00 - CONCLUSION: No acute disease. Brian Burnett MD Percutaneous Cholangiogram 06/24/17 0000 Signed Impressions: Service Date/Time: Saturday, June 24, 2017 20:36 - CONCLUSION: Uncomplicated percutaneous cholecystostomy as above. Lalo Wong MD Abdomen/Pelvis CT 06/24/17 0000 Signed Impressions: Service Date/Time: Saturday, June 24, 2017 18:05 - CONCLUSION: 1. Bibasilar patchy infiltrates (right worse than left) consistent with probable pneumonia. Clinical correlation is recommended. 2. Worsening pleural effusions which are moderate in size on the right and small on the left. 3. Diffuse peripheral perfusion defects involving the kidneys suggestive of decreased renal function or possible interval development of bilateral pyelonephritis. Clinical correlation is recommended. 4. Gallbladder wall thickening and vicarious excretion of contrast via the gallbladder. Clinical correlation is recommended to rule out cholecystitis. 5. Interval development of ascites within the abdomen. 6. Thickening of the wall of the ascending colon raising possibility of colitis. Clinical correlation is recommended. Brian Burnett MD Objective Remarks GENERAL: 57-year-old female currently orotracheally intubated, sedated SKIN: Warm and dry. No rash. Well perfused HEAD: Atraumatic. Normocephalic. EYES: Pupils equal and round about 2 mm bilaterally and brisk. No scleral icterus. No injection or drainage. ENT: No nasal bleeding or discharge. Orotracheally intubated NECK: Trachea midline. No JVD. CARDIOVASCULAR: Irregular rhythm, rate controlled. S1, S2. No S4. I don's hear a significant MR murmur RESPIRATORY: Air entry diminished at the bases. No wheezing GASTROINTESTINAL: Abdomen soft, tender to palpation in the right upper quadrant and epigastric region. Cholecystostomy tube in place. MUSCULOSKELETAL: Extremities with trace lower extremity peripheral edema. No obvious deformities. 1+ edema right upper extremity NEUROLOGICAL: Spontaneous eye opening. Moves bilateral lower extremities, left upper extremity. Follows commands when sedation is lightened Date of Insertion: Jun 24, 2017 Line: Central Venous Catheter Side: Right Location: Subclavian A/P Assessment and Plan Neuro/Psych: Metabolic encephalopathy UDS positive for barbiturates Depression/anxiety Seizure questionable On Diprivan/Fentanyl infusion for sedation. Daily sedation vacation CT brain 06/24 revealed no acute intracranial findings EEG 06/25 revealed right frontal lobe sharp activity indicative of epileptiform. Loaded with levetiracetam 1 g IV 1 on 06/26 followed by 500 mg IV twice daily. Repeat EEG 06/26 revealed continuous sharps in right frontal region, Repeat EEG 06/28- no epileptiform activity Neurology- Dr. Shannon following 06/27 MRI brain-no acute intracranial abnormality On Dilantin 100mg Q8 and Keppra per Neuro, follow Dilantin level Dilantin level only 3.2 on 07/07, increased fosphenytoin to 150 mg every 8 hours Repeat Dilantin level is 2.4 today 07/09/2017. Additional loading dose of 500 mg IV today. Daily levels for 5 days CV: Atrial fibrillation rate controlled History of atrial fibrillation Hypertension Lactic acidosis resolved Moderate to Severe TR/MR Acute diastolic heart failure Tachybradycardia syndrome Amiodarone 200mg BID, Lopressor 50mg Q12, On Cardizem drip 10 mg/hr 2D echocardiogram revealed EF 45-50%. Decreased LV systolic function. Bilateral atrial enlargement. Moderate to Severe MR and TR. Cardiology is following, EPS consult secondary to tachybradycardia syndrome-no intervention at this time / clinical status CT surgery consulted to evaluate severe MR- Dr. Paul following-no intervention at this time 2/2 clinical status, but once clinically improved will reevaluate for surgery Lactate is cleared 06/26 Labetalol PRN for SBP > 160 IV Lasix 60 mg 1 07/09 and placed on 20 every 8 hours Previous extubation failure most likely from stridor but severe MR might also significantly contributing Resp: Acute respiratory failure Intubated 06/24, extubated and reintubated on 07/06 Stridor Right lower lobe infiltrate/pleural effusion Continue with vent support keep sats >92%. Ventilator bundle, Bronchodilators Completed Solumedrol 40mg Q6 for stridor. Given Decadron 10 mg IV 1 07/08 Previous extubation failure most likely from stridor but severe MR might also significantly contributing SBT today with possible extubation. Unable to evaluate for cuff leak yesterday patient has a size 8 Use BiPAP after extubation, if successfully extubated, also written for racemic epinephrine as needed if extubated GI: Cholelithiasis on ultrasound 06/23 possibly acute cholecystitis Hypoalbuminemia Gastroesophageal reflux disease CT abdomen/pelvis 06/23 revealed a 1 mm gallstone. No signs of cholecystitis. Otherwise unremarkable CT abdomen/pelvis 06/24 revealed right > left pleural effusions. Gallbladder wall thickening with voracious dye excretion, descending colon edema and bilateral perinephric stranding Status post cholecystostomy tube by IR 06/24- monitor output, fluid cx: no growth General surgery recommended continue cholecystostomy tube placement. Outpatient follow-up for cholecystectomy. Tube feeds Vital high at 55 cc/hour-hold for possible extubation on pantoprazole 40 mg IV. daily for gastroesophageal reflux disease Docusate sodium/senna 1 tablet twice daily for bowel regimen GI Dr. Naqvi - S/P colonoscopy and endoscopy 06/30, upper endoscopy revealed medium-sized ulcer first part of duodenum, multiple small erosions gastric antrum. Colon- Normal mucosa : Acute kidney injury Monitor renal function, electrolytes replacement per protocol. d/cd NS@100ml/hr. resumed IV Lasix as above with albumin Patient is fluid overloaded approximately 9 kg Endo: Sliding-scale insulin Novulin R with Accu-Cheks every 4 hours to maintain euglycemia/low regimen TSH -1.76 Heme: Microcytic hypochromic anemia Leukocytosis Resolved DIC Thrombocytopenia Monitor CBC ID: Sepsis likely acute cholecystitis Patient has been on Zosyn since 06/24 and Vanco since 06/30- All previous cultures negative. C-diff PCR negative on 07/06 All cultures negative today Currently on cefepime and micafungin. Vancomycin DC'd 07/07 by ID 06/25 Urine Legionella pneumococcal antigens no growth Influenza negative Pertinent cultures 06/25 -bile -no growth 06/25 -sputum -no growth 06/24 -blood cultures 4 -no growth 06/24 -urine -p no growth MSK: PT evaluate and treat Daily functional maintenance Multi-Podus boots bilaterally Prophylaxis -GI -pantoprazole -DVT -SCDs, changed to Lovenox 80mg daily given worsening renal function. Palliative care is following Level 3 Kena Dover MD Jul 09, 2017 08:32
[2017-07-09] MEDS: SODIUM CHLORIDE 0.9% FLUSH 10 ML FLUSH IV FLUSH SCH ×2 (09:24→21:25)
[2017-07-09] MEDS: levETIRAcetam INJ 500 MG in SODIUM CHLORIDE 0.9% INJ 100 ML IV SCH ×2 (09:24→21:24)
[2017-07-09] MEDS: AMIODARONE 200 MG TAB PO SCH ×2 (09:25→21:00)
[2017-07-09] MEDS: METOPROLOL TARTRATE 50 MG TAB PO SCH ×2 (09:25→21:00)
[2017-07-09] MEDS: FUROSEMIDE 20 MG/2 ML VIAL IV PUSH SCH ×2 (09:25→17:51)
[2017-07-09] MEDS: NYSTATIN SUSP 500,000 U/5 ML CUP SWISH-SWAL SCH ×4 (09:25→21:00)
[2017-07-09] MEDS: ENOXAPARIN SODIUM 80 MG/0.8 ML SYRINGE SQ SCH (09:26)
[2017-07-09] MEDS: DOCUSATE SODIUM 50 MG/SENNA 8.6 MG TAB PO SCH ×2 (09:26→21:00)
[2017-07-09] MEDS: ALBUMIN 25% INJ 100 ML IV SCH ×2 (09:45→21:24)
[2017-07-09] MEDS: POTASSIUM CHLORIDE 25 MEQ EFFERVESCENT TAB PO SCH (09:46)
[2017-07-09] MEDS ORDERED: FOSPHENYTOIN INJ 500 MGPE in SODIUM CHLORIDE 0.9% INJ 50 ML IV ONE (10:00)
[2017-07-09 10:03] LABS: ALBUMIN 2.9 GM/DL (3.4-5.0); ALKALINE PHOSPHATASE 253 U/L (45-117); ALT (GPT) 57 U/L (10-53); AST (GOT) 57 U/L (15-37); BICARBONATE 25.7 MEQ/L (21.0-32.0); BLOOD UREA NITROGEN 53 MG/DL (7-18); CALCIUM 10.5 MG/DL (8.5-10.1); CHLORIDE 106 MEQ/L (98-107); CREATININE 1.19 MG/DL (0.50-1.00); GLOMERULAR FILTRATION RATE 46 ML/MIN (>89); GLUCOSE,RANDOM 94 MG/DL (74-106); SODIUM (NA) 142 MEQ/L (136-145); TOTAL BILIRUBIN ADULT 0.8 MG/DL (0.2-1.0); TOTAL PROTEIN 7.8 GM/DL (6.4-8.2)
[2017-07-09] MEDS ORDERED: PHARMACY ORDERED LAB ONE (10:45)
--- NOTE | 2017-07-09 11:09 | HHI.IDPN ---
Subjective Subjective Remarks is a 57-year-old with PMHx of COPD, GERD, hypertension, cardiovascular problems that presented to the hospital on 06/23/2017 for complaints of epigastric and abdominal pain, nausea vomiting, shortness of breath. ID following for leucocytosis, acute cholecystitis and pneumonia. Seizure new onset. Overnight events reviewed No fever No rash No diarrhea WBC normal Much more awake today, follows commands, smiled. Antibiotics Cefepime IV Micafungin IV Lines Line sites with no e.o infection Past Medical History reviewed Allergies: Coded Allergies: Sulfa (Sulfonamide Antibiotics) (Verified Allergy, Unknown, 06/23/17) ciprofloxacin (Verified Allergy, Unknown, 06/23/17) hydromorphone (Verified Allergy, Unknown, 06/23/17) Objective . Vital Signs Date Time Temp Pulse Resp B/P (MAP) Pulse Ox O2 Delivery O2 Flow Rate FiO2 07/09/17 10:39 100 Nasal Cannula 4 07/09/17 10:39 100 Nasal Cannula 4.00 07/09/17 09:31 97 30 07/09/17 09:23 45 07/09/17 09:23 94 45 07/09/17 09:09 97 30 07/09/17 09:09 30 07/09/17 08:04 100 30 07/09/17 06:00 102 07/09/17 04:00 98.8 99 18 130/67 (88) 100 07/09/17 04:00 30 07/09/17 04:00 99 07/09/17 03:57 100 30 07/09/17 02:00 87 07/09/17 00:13 100 30 07/09/17 00:00 98.7 96 18 113/59 (77) 100 07/09/17 00:00 30 07/09/17 00:00 96 07/08/17 22:00 102 07/08/17 21:40 100 30 07/08/17 20:00 98.9 97 18 113/61 (78) 100 07/08/17 20:00 30 07/08/17 20:00 97 07/08/17 16:00 87 07/08/17 16:00 98.2 87 18 113/55 (74) 100 07/08/17 16:00 30 07/08/17 14:55 100 30 07/08/17 14:00 83 07/08/17 13:37 30 07/08/17 12:23 30 07/08/17 12:00 77 07/08/17 12:00 98.1 77 18 108/58 (75) 100 07/08/17 12:00 30 07/08/17 11:49 100 30 . Laboratory Tests Test 07/08/17 11:43 White Blood Count 9.3 TH/MM3 Red Blood Count 3.21 MIL/MM3 Hemoglobin 7.2 GM/DL Hematocrit 23.7 % Mean Corpuscular Volume 73.7 FL Mean Corpuscular Hemoglobin 22.3 PG Mean Corpuscular Hemoglobin Concent 30.2 % Red Cell Distribution Width 22.0 % Platelet Count 177 TH/MM3 Mean Platelet Volume 9.3 FL Neutrophils (%) (Auto) 66.1 % Lymphocytes (%) (Auto) 21.6 % Monocytes (%) (Auto) 9.2 % Eosinophils (%) (Auto) 2.1 % Basophils (%) (Auto) 1.0 % Neutrophils # (Auto) 6.1 TH/MM3 Lymphocytes # (Auto) 2.0 TH/MM3 Monocytes # (Auto) 0.8 TH/MM3 Eosinophils # (Auto) 0.2 TH/MM3 Basophils # (Auto) 0.1 TH/MM3 CBC Comment DIFF FINAL Differential Comment Laboratory Tests Test 07/08/17 10:08 07/09/17 08:50 Blood Urea Nitrogen 52 MG/DL 53 MG/DL Creatinine 1.36 MG/DL 1.19 MG/DL Random Glucose 94 MG/DL 94 MG/DL Total Protein 7.4 GM/DL 7.8 GM/DL Albumin 2.3 GM/DL 2.9 GM/DL Calcium Level 9.5 MG/DL 10.5 MG/DL Alkaline Phosphatase 234 U/L 253 U/L Aspartate Amino Transf (AST/SGOT) 80 U/L 57 U/L Alanine Aminotransferase (ALT/SGPT) 56 U/L 57 U/L Total Bilirubin 0.7 MG/DL 0.8 MG/DL Sodium Level 142 MEQ/L 142 MEQ/L Potassium Level 3.7 MEQ/L 3.4 MEQ/L Chloride Level 110 MEQ/L 106 MEQ/L Carbon Dioxide Level 21.3 MEQ/L 25.7 MEQ/L Anion Gap 11 MEQ/L 10 MEQ/L Estimat Glomerular Filtration Rate 40 ML/MIN 46 ML/MIN Microbiology Date/Time Source Procedure Growth Status 07/07/17 11:08 Blood Peripheral Aerobic Blood Culture - Preliminary NO GROWTH IN 1 DAY Resulted 07/07/17 11:08 Blood Peripheral Anaerobic Blood Culture - Preliminary NO GROWTH IN 1 DAY Resulted 07/07/17 11:00 Blood Peripheral Aerobic Blood Culture - Preliminary NO GROWTH IN 1 DAY Resulted 07/07/17 11:00 Blood Peripheral Anaerobic Blood Culture - Preliminary NO GROWTH IN 1 DAY Resulted 07/06/17 21:22 Sputum Endotracheal Gram Stain - Final Complete 07/06/17 21:22 Sputum Endotracheal Sputum Culture - Final LIGHT GROWTH NORMAL RESPIRATORY DELIO Complete 07/07/17 09:25 Urine Catheterized Urine Urine Culture - Final NO GROWTH IN 48 HOURS. Complete Imaging Last Impressions Chest CT 07/07/17 0000 Signed Impressions: Service Date/Time: Friday, July 07, 2017 10:35 - CONCLUSION: 1. Interval resolution of bilateral pleural effusions with improved airspace disease in the lower lobes in comparison to 06/24/2017. 2. Very subtle anterior pericardial effusion. Akira Cullen MD Abdomen/Pelvis CT 07/07/17 0000 Signed Impressions: Service Date/Time: Friday, July 07, 2017 10:35 - CONCLUSION: 1. No loculated fluid collections within the abdomen and pelvis to suggest abscess. Drainage catheter remains in right upper quadrant. 2. Improved basilar airspace consolidation in the lungs since June 24. 3. NG coiled in stomach. Ferguson catheter in decompressed bladder. No bowel obstruction, free fluid or free air. Leandro Palacios MD Chest X-Ray 07/06/17 0600 Signed Impressions: Service Date/Time: Thursday, July 06, 2017 03:59 - CONCLUSION: Resolution of the right lower lobe infiltrate. More focal consolidation now seen involving the left lower lobe. Floyd Tiwari Jr., MD Brain MRI 06/27/17 0000 Signed Impressions: Service Date/Time: Tuesday, June 27, 2017 10:00 - CONCLUSION: 1. No acute intracranial abnormality. 2. Mild chronic small vessel ischemic change. Floyd Tiwari Jr., MD Head CT 06/24/17 1645 Signed Impressions: Service Date/Time: Saturday, June 24, 2017 18:00 - CONCLUSION: No acute disease. Brian Burnett MD Percutaneous Cholangiogram 06/24/17 0000 Signed Impressions: Service Date/Time: Saturday, June 24, 2017 20:36 - CONCLUSION: Uncomplicated percutaneous cholecystostomy as above. Lalo Wong MD Physical Exam GENERAL: This is a well-nourished, well-developed patient, in no apparent distress. SKIN: No rashes, ecchymoses or lesions. Cool and dry. HEAD: Atraumatic. Normocephalic. No temporal or scalp tenderness. EYES: Pupils equal round and reactive. Extraocular motions intact. Positive for scleral icterus. No injection or drainage. ENT: Intubated. NECK: Trachea midline. Supple, nontender, no meningeal signs. CARDIOVASCULAR: HS audible. RESPIRATORY: Clear to auscultation. Breath sounds equal bilaterally. No wheezes , rales, or rhonchi. GASTROINTESTINAL: Abdomen soft, nondistended. Cholecystostomy tube in place RUQ. No RUQ tenderness. MUSCULOSKELETAL: Extremities without clubbing, cyanosis, or edema. No joint tenderness, effusion. Pedal edema noted. NEUROLOGICAL: Not arousable. Psych could not be assessed. IV line sites with no e/o infection. Assessment & Plan Remarks Severe Sepsis present on admission Pneumonia ? HCAP vs aspiration in health care setting. Acute cholecystitis s/p cholecystostomy tube placement. Seizure new onset ? alcohol related. Fevers: ? drug fever ? Vanco IV vs new infection. Normal WBC at time of initial consult. Acute resp failure on vent Acute metabolic encephalopathy: sepsis, seizures, metabolic. Acute renal failure: ? lasix, prerenal. Recs Continue Cefepime IV DC Micafungin IV Start Diflucan Need to dw surgery team about Abx duration from there standpoint. Urine Cx negative Follow cultures Follow clinically. I will be OOT from 07/10/2017 to 07/19/2017 other ID MDs covering for me. Addendum 07/09/2017 1:19 am: Recd call from RN: Streptococcus in blood. Likely source GI. Blood cultures x 2 repeat Patient has no CL at present time. Nella Florian MD Jul 09, 2017 11:08
[2017-07-09] MEDS: CHLORHEXIDINE 0.12% (ORAL KIT) 15 ML CUP MT SCH ×2 (11:30→20:00)
[2017-07-09] MEDS: CEFEPIME INJ 1,000 MG in SODIUM CHLORIDE 0.9% INJ 100 ML IV SCH (11:30)
--- NOTE | 2017-07-09 12:36 | HHI.HCPN ---
Reason for visit a. To assist with evaluation and management of symptoms including: dyspnea. pain b. To assist medical decision maker(s) with: better understanding of current medical conditions; weighing benefits/burdens of medical treatment options; making medical treatment decisions. Subjective/Interval History Patient seen in follow-up on comfort, goals. Medically extubated today. Renal function stable/ slightly elevated 53/1.19. Cholecystostomy tube continues to have moderate drainage, 375 ml last 24 hours. Status post extubation about 45 minutes prior to my exam. She is tolerating nasal cannula. She is alert, tracking examiner's following simple commands. She is minimally verbal when I ask her question she smiles but does not answer. I asked her yes/no answers such as is NIKUNJ her son or are you in the hospital, she does not answer appropriately when I tell her she is in the hospital she looks puzzled and shakes her head no. Following exam call to son Nikunj. Provided update review of recent extubation, review of clinical condition and multiple comorbidities. Review of recent diagnostics. Review of CODE STATUS/ reintubation status, he indicates the family would like to see her and talk more before deciding. He does feel that she would not want a tracheostomy however he wants to be able to see her this afternoon and talk more to the family. Review that if she did not desire reintubation or possible tracheostomy then options would be for comfort directed care. He indicates family will continue to discuss this. He requests that I call his sibling, patient other daughter Charisse as he feels he is having difficulty explaining in a way that she can understand. I will call her. --Call to daughter Charisse review of current condition, prognosis, possible trajectories going forward. Brief review of hospital course, diagnostics, treatments in place and potential treatment options going forward. Review that patient still remains critical and that she may fluctuate; itzel very high risk for ongoing complications and decline though it is possible that with prolonged hospitalization and potentially rehabilitation, that she may improve. Brief review of comfort intervention option if the patient did not desire ongoing aggressive interventions. All questions answered to the best of my ability. She and the family will be in communication today regarding reintubation and CODE STATUS as well as other goals going forward. . Advance Directives Living Will: Never completed Health Care Surrogate: Never completed Durable Power of Panel Raiser Operator: Never completed Objective Vital Signs Date Time Temp Pulse Resp B/P (MAP) Pulse Ox O2 Delivery O2 Flow Rate FiO2 07/09/17 10:39 100 Nasal Cannula 4 07/09/17 10:39 100 Nasal Cannula 4.00 07/09/17 10:00 106 07/09/17 09:31 97 30 07/09/17 09:23 45 07/09/17 09:23 94 45 07/09/17 09:09 97 30 07/09/17 09:09 30 07/09/17 08:04 100 30 07/09/17 08:00 100 07/09/17 08:00 98.9 100 14 114/64 (81) 100 07/09/17 08:00 30 07/09/17 06:00 102 07/09/17 04:00 98.8 99 18 130/67 (88) 100 07/09/17 04:00 30 07/09/17 04:00 99 07/09/17 03:57 100 30 07/09/17 02:00 87 07/09/17 00:13 100 30 07/09/17 00:00 98.7 96 18 113/59 (77) 100 07/09/17 00:00 30 07/09/17 00:00 96 07/08/17 22:00 102 07/08/17 21:40 100 30 07/08/17 20:00 98.9 97 18 113/61 (78) 100 07/08/17 20:00 30 07/08/17 20:00 97 07/08/17 16:00 87 07/08/17 16:00 98.2 87 18 113/55 (74) 100 07/08/17 16:00 30 07/08/17 14:55 100 30 07/08/17 14:00 83 07/08/17 13:37 30 07/08/17 12:23 30 Intake & Output 07/09/17 07/09/17 07:00 19:00 Intake Total 810 ml Output Total 1100 ml Balance -290 ml IV Total 205 ml Tube Feeding 485 ml Other 120 ml Output Urine Total 900 ml Drainage Total 200 ml # Bowel Movements 0 Physical Exam CONSTITUTIONAL/GENERAL: This is an adequately nourished patient, awake, recently extubated TUBES/LINES/DRAINS: PIV upper extremities , arguello catheter, NC SKIN: slight jaundice, rashes, or lesions. Skin warm/dry NECK: Trachea midline. Supple, nontender. No palpable thyroid enlargement or nodularity. CARDIOVASCULAR: Irregular rate and rhythm without murmur, rate 90s. Peripheral pulses symmetric. RESPIRATORY/CHEST: Symmetric, unlabored respirations on NC.Clear to auscultation. Breath sounds equal bilaterally. GASTROINTESTINAL: Abdomen soft, no apparent tenderness, nondistended. No palpable masses. Bowel sounds present.Drain from rt side sm amt brownish yellow present GENITOURINARY: Without palpable bladder distension. Arguello catheter in place. NEUROLOGICAL: awake, tracks examiner. Eyes open. Moving all 4 extremities. no consistently following commands. Nonverbal, nods some, does not answer yes/no questions approp, appears confused. Smiles. PSYCHIATRIC: No obvious anxiety/depression- limited assessment due to clinical condition Diagnostic Tests Laboratory Laboratory Tests Test 07/06/17 19:24 07/07/17 05:27 07/07/17 09:25 07/07/17 09:40 Blood Gas Puncture Site LT RADIAL Blood Gas Patient Temperature 98.6 Blood Gas HCO3 26 mmol/L (22-26) Blood Gas Base Excess 2.5 mmol/L (-2-2) Blood Gas Oxygen Saturation 98 % (90-100) Arterial Blood pH 7.46 (7.380-7.420) Arterial Blood Partial Pressure CO2 38 mmHg (38-42) Arterial Blood Partial Pressure O2 440 mmHg (61-120) Arterial Blood Oxygen Content 14.0 Vol % (12.0-20.0) Arterial Blood Carboxyhemoglobin 1.7 % (0-4) Arterial Blood Methemoglobin 1.0 % (0-2) Blood Gas Hemoglobin 9.4 G/DL (12.0-16.0) Oxygen Delivery Device VENTILATOR Blood Gas Ventilator Setting PRVC18/500/1.0/=5 Blood Gas Inspired Oxygen 100 % White Blood Count 10.4 TH/MM3 (4.0-11.0) Red Blood Count 3.65 MIL/MM3 (4.00-5.30) Hemoglobin 8.1 GM/DL (11.6-15.3) Hematocrit 26.3 % (35.0-46.0) Mean Corpuscular Volume 71.9 FL (80.0-100.0) Mean Corpuscular Hemoglobin 22.1 PG (27.0-34.0) Mean Corpuscular Hemoglobin Concent 30.8 % (32.0-36.0) Red Cell Distribution Width 22.1 % (11.6-17.2) Platelet Count 177 TH/MM3 (150-450) Mean Platelet Volume 8.9 FL (7.0-11.0) Neutrophils (%) (Auto) 86.0 % (16.0-70.0) Lymphocytes (%) (Auto) 7.5 % (9.0-44.0) Monocytes (%) (Auto) 5.9 % (0.0-8.0) Eosinophils (%) (Auto) 0.0 % (0.0-4.0) Basophils (%) (Auto) 0.6 % (0.0-2.0) Neutrophils # (Auto) 8.9 TH/MM3 (1.8-7.7) Lymphocytes # (Auto) 0.8 TH/MM3 (1.0-4.8) Monocytes # (Auto) 0.6 TH/MM3 (0-0.9) Eosinophils # (Auto) 0.0 TH/MM3 (0-0.4) Basophils # (Auto) 0.1 TH/MM3 (0-0.2) CBC Comment DIFF FINAL Differential Comment Blood Urea Nitrogen 34 MG/DL (7-18) 40 MG/DL (7-18) Creatinine 1.85 MG/DL (0.50-1.00) 1.99 MG/DL (0.50-1.00) Random Glucose 112 MG/DL (74-106) 131 MG/DL (74-106) Calcium Level 10.6 MG/DL (8.5-10.1) 9.8 MG/DL (8.5-10.1) Magnesium Level 2.2 MG/DL (1.5-2.5) Sodium Level 140 MEQ/L (136-145) 139 MEQ/L (136-145) Potassium Level 4.9 MEQ/L (3.5-5.1) 4.9 MEQ/L (3.5-5.1) Chloride Level 101 MEQ/L (98-107) 101 MEQ/L (98-107) Carbon Dioxide Level 26.1 MEQ/L (21.0-32.0) 25.1 MEQ/L (21.0-32.0) Anion Gap 13 MEQ/L (5-15) 13 MEQ/L (5-15) Estimat Glomerular Filtration Rate 28 ML/MIN (>89) 26 ML/MIN (>89) Urine Color DARK-YELLOW (YELLW/STRAW) Urine Turbidity CLOUDY (CLEAR) Urine pH 5.0 (5.0-8.5) Urine Specific [place] 1.025 (1.002-1.035) Urine Protein 30 mg/dL (NEG-TRACE) Urine Glucose (UA) NEG mg/dL (NEG) Urine Ketones NEG mg/dL (NEG) Urine Occult Blood SMALL (NEG) Urine Nitrite NEG (NEG) Urine Bilirubin NEG (NEG) Urine Urobilinogen LESS THAN 2.0 MG/DL (LESS Urine Leukocyte Esterase NEG (NEG) Urine RBC 3 /hpf (0-3) Urine WBC 14 /hpf (0-5) Urine Bacteria OCC /hpf (NONE) Urine Granular Casts 26 /lpf (NONE) Urine Mucus FEW /lpf (OCC) Microscopic Urinalysis Comment CATH-CULTURE IND Total Protein 8.0 GM/DL (6.4-8.2) Albumin 2.6 GM/DL (3.4-5.0) Alkaline Phosphatase 214 U/L (45-117) Aspartate Amino Transf (AST/SGOT) 41 U/L (15-37) Alanine Aminotransferase (ALT/SGPT) 43 U/L (10-53) Total Bilirubin 0.8 MG/DL (0.2-1.0) Phenytoin (Dilantin) Level 3.2 MCG/ML (10.0-20.0) Test 07/08/17 00:57 07/08/17 10:08 07/08/17 11:43 07/09/17 05:15 Urine Eosinophils NONE SEEN /HPF (NONE SEEN) Blood Urea Nitrogen 52 MG/DL (7-18) Creatinine 1.36 MG/DL (0.50-1.00) Random Glucose 94 MG/DL (74-106) Total Protein 7.4 GM/DL (6.4-8.2) Albumin 2.3 GM/DL (3.4-5.0) Calcium Level 9.5 MG/DL (8.5-10.1) Alkaline Phosphatase 234 U/L (45-117) Aspartate Amino Transf (AST/SGOT) 80 U/L (15-37) Alanine Aminotransferase (ALT/SGPT) 56 U/L (10-53) Total Bilirubin 0.7 MG/DL (0.2-1.0) Sodium Level 142 MEQ/L (136-145) Potassium Level 3.7 MEQ/L (3.5-5.1) Chloride Level 110 MEQ/L (98-107) Carbon Dioxide Level 21.3 MEQ/L (21.0-32.0) Anion Gap 11 MEQ/L (5-15) Estimat Glomerular Filtration Rate 40 ML/MIN (>89) White Blood Count 9.3 TH/MM3 (4.0-11.0) Red Blood Count 3.21 MIL/MM3 (4.00-5.30) Hemoglobin 7.2 GM/DL (11.6-15.3) Hematocrit 23.7 % (35.0-46.0) Mean Corpuscular Volume 73.7 FL (80.0-100.0) Mean Corpuscular Hemoglobin 22.3 PG (27.0-34.0) Mean Corpuscular Hemoglobin Concent 30.2 % (32.0-36.0) Red Cell Distribution Width 22.0 % (11.6-17.2) Platelet Count 177 TH/MM3 (150-450) Mean Platelet Volume 9.3 FL (7.0-11.0) Neutrophils (%) (Auto) 66.1 % (16.0-70.0) Lymphocytes (%) (Auto) 21.6 % (9.0-44.0) Monocytes (%) (Auto) 9.2 % (0.0-8.0) Eosinophils (%) (Auto) 2.1 % (0.0-4.0) Basophils (%) (Auto) 1.0 % (0.0-2.0) Neutrophils # (Auto) 6.1 TH/MM3 (1.8-7.7) Lymphocytes # (Auto) 2.0 TH/MM3 (1.0-4.8) Monocytes # (Auto) 0.8 TH/MM3 (0-0.9) Eosinophils # (Auto) 0.2 TH/MM3 (0-0.4) Basophils # (Auto) 0.1 TH/MM3 (0-0.2) CBC Comment DIFF FINAL Differential Comment Phenytoin (Dilantin) Level 2.4 MCG/ML (10.0-20.0) Test 07/09/17 08:50 07/09/17 10:14 Blood Urea Nitrogen 53 MG/DL (7-18) Creatinine 1.19 MG/DL (0.50-1.00) Random Glucose 94 MG/DL (74-106) Total Protein 7.8 GM/DL (6.4-8.2) Albumin 2.9 GM/DL (3.4-5.0) Calcium Level 10.5 MG/DL (8.5-10.1) Alkaline Phosphatase 253 U/L (45-117) Aspartate Amino Transf (AST/SGOT) 57 U/L (15-37) Alanine Aminotransferase (ALT/SGPT) 57 U/L (10-53) Total Bilirubin 0.8 MG/DL (0.2-1.0) Sodium Level 142 MEQ/L (136-145) Potassium Level 3.4 MEQ/L (3.5-5.1) Chloride Level 106 MEQ/L (98-107) Carbon Dioxide Level 25.7 MEQ/L (21.0-32.0) Anion Gap 10 MEQ/L (5-15) Estimat Glomerular Filtration Rate 46 ML/MIN (>89) Blood Gas Puncture Site LT RADIAL Blood Gas Patient Temperature 98.6 Blood Gas HCO3 25 mmol/L (22-26) Blood Gas Base Excess 0.6 mmol/L (-2-2) Blood Gas Oxygen Saturation 95 % (90-100) Arterial Blood pH 7.40 (7.380-7.420) Arterial Blood Partial Pressure CO2 41 mmHg (38-42) Arterial Blood Partial Pressure O2 110 mmHg (61-120) Arterial Blood Oxygen Content 10.8 Vol % (12.0-20.0) Arterial Blood Carboxyhemoglobin 1.8 % (0-4) Arterial Blood Methemoglobin 1.3 % (0-2) Blood Gas Hemoglobin 7.9 G/DL (12.0-16.0) Oxygen Delivery Device CPAP+5/PS5 Blood Gas Inspired Oxygen 30 % Result Diagram: 07/08/17 1143 07/09/17 0850 Microbiology Microbiology Date/Time Source Procedure Growth Status 07/07/17 11:08 Blood Peripheral Aerobic Blood Culture - Preliminary Streptococcus Species Resulted 07/07/17 11:08 Blood Peripheral Anaerobic Blood Culture - Preliminary NO GROWTH IN 2 DAYS Resulted 07/07/17 11:00 Blood Peripheral Aerobic Blood Culture - Preliminary NO GROWTH IN 2 DAYS Resulted 07/07/17 11:00 Blood Peripheral Anaerobic Blood Culture - Preliminary NO GROWTH IN 2 DAYS Resulted 07/06/17 21:22 Sputum Endotracheal Gram Stain - Final Complete 07/06/17 21:22 Sputum Endotracheal Sputum Culture - Final LIGHT GROWTH NORMAL RESPIRATORY DELIO Complete 07/07/17 09:25 Urine Catheterized Urine Urine Culture - Final NO GROWTH IN 48 HOURS. Complete Imaging Last Impressions Chest X-Ray 07/08/17 0000 Signed Impressions: Service Date/Time: Saturday, July 08, 2017 13:35 - CONCLUSION: 1. Basilar airspace disease slightly improved from July 06. Endotracheal tube and nasogastric tube unchanged. Leandro Palacios MD Chest CT 07/07/17 0000 Signed Impressions: Service Date/Time: Friday, July 07, 2017 10:35 - CONCLUSION: 1. Interval resolution of bilateral pleural effusions with improved airspace disease in the lower lobes in comparison to 06/24/2017. 2. Very subtle anterior pericardial effusion. Akira Cullen MD Abdomen/Pelvis CT 07/07/17 0000 Signed Impressions: Service Date/Time: Friday, July 07, 2017 10:35 - CONCLUSION: 1. No loculated fluid collections within the abdomen and pelvis to suggest abscess. Drainage catheter remains in right upper quadrant. 2. Improved basilar airspace consolidation in the lungs since June 24. 3. NG coiled in stomach. Arguello catheter in decompressed bladder. No bowel obstruction, free fluid or free air. Leandro Palacios MD Brain MRI 06/27/17 0000 Signed Impressions: Service Date/Time: Tuesday, June 27, 2017 10:00 - CONCLUSION: 1. No acute intracranial abnormality. 2. Mild chronic small vessel ischemic change. Floyd Tiwari Jr., MD Head CT 06/24/17 1645 Signed Impressions: Service Date/Time: Saturday, June 24, 2017 18:00 - CONCLUSION: No acute disease. Brian Burnett MD Percutaneous Cholangiogram 06/24/17 0000 Signed Impressions: Service Date/Time: Saturday, June 24, 2017 20:36 - CONCLUSION: Uncomplicated percutaneous cholecystostomy as above. Lalo Wong MD Procedures 07/09 extubated 07/06 extubated- reintubated 07/06 Assessment and Plan Disease Oriented Problem List: (1) Atrial fibrillation with RVR (2) Anemia (3) Pulmonary edema (4) Cholecystitis (5) Cardiomyopathy (6) Acute encephalopathy (7) Hypertension (8) Tachy-joe syndrome (9) Severe mitral regurgitation (10) Diastolic heart failure (11) Sepsis (12) GERD (gastroesophageal reflux disease) Symptom Scale: (1) Dyspnea 0-10 Scale: Unable to quantify (2) Pain 0-10 Scale: Unable to quantify (3) Encephalopathy 0-10 Scale: Unable to quantify Pertinent Non-Medical Issues Psychosocial: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 Spiritual:none listed. Legal:Pt is . Currently has 4 children Billy Mcqueen, Nikunj [phone] Yaneth; [phone] Health care proxy are the 4 children. Ethical issues impacting care:none Important Contacts Son: Nikunj [phone] dtr Yaneth [phone]. dtr Charisse [phone] son Billy [phone] . Prognosis 57 year old prognosis is guarded. Code Status: Full Code Plan ==Code: FULL CODE == Decision maker- pt currently does not capacity to make medical decisions.pt is . No advance directives. Per [place] proxy would be pt's four children: Nikunj, Yaneth, Charisse, and Billy. (family indicated they are OK w Nikunj serving as spokesperson.) == symptoms: pain- acute cholecystitis, now bedbound. +abd tender to exam. Cautious use opiates 2/2 AMS/encephalopathy,recent medical extubation. dyspnea- on mechanical ventilation--> medically extubated 07/06, tolerating room air-->> later reintubated. CXR some improvement RLL, + consolidation LLL.CT chest neg acute process EXTUBATED again 07/09, tolerating NC encephalopathy- hx ? seizures. ? toxic metabolic encephalopathy.ammonia 07/03 =10. 3 confused, not consistently following commands/non verbal not answering yes/no appropriately == goals of care: Again reviewed CODE STATUS/reintubation status as patient now extubated again. Son Nikunj will be in later this afternoon to see the patient , he wishes to see her and talk to family again before making decisions regarding this. We have reviewed the alternative of ongoing aggressive interventions vs comfort directed treatment. For now they are hoping she will improve, though understand she may not , they are open to ongoing discussion as clinical course evolves. == palliative care will follow to make recommendations for symptoms and to review goals of care as pt's condition evolves. Attestation To help prompt me to consider important information that might be impacting today's encounter and assessment, information from prior notes written by myself or my colleagues may have been "brought forward" into today's note. My signature on this note, however, is an attestation that I personally performed the exam, history, and/or decision-making noted today, and, unless otherwise indicated, the interactions with patient, family, and staff as well as the review of records all occurred today. I also attest that the listed assessment and stated plan reflect my best clinical judgment today based on the combination of historical information, prior notes, and today's exam/ interactions. When time spent is documented, it refers only to time spent today by the signer, or if indicated, combined time spent today by collaborating physician/nurse practitioner. Idalia Riggs Jul 09, 2017 12:36
--- NOTE | 2017-07-09 15:37 | PD.CAR.PN ---
CVT Progress Note Subjective/Hospital Course: A 57-year-old female that initially presented to the emergency room with mid epigastric pain, short of breath for a couple of days, was in the process of moving to [place], has been out of her medications for the past week, has a history of atrial fibrillation, stopped her Xarelto 3 weeks ago, questionable rash, was found to be in atrial fibrillation with RVR, CHF. They did an echo, which showed mitral valve regurgitation, tricuspid regurgitation, EF 45%. They started her initially on Cardizem drip and then switched over to metoprolol. The patient converted and became somewhat bradycardic. They also did a CT abdomen and pelvis, which revealed a 1 mm gallstone with signs of cholecystitis. She has since undergone cholecystostomy tube on the . While she was on the medical floor, she became more somnolent and bradycardic with heart rates in the 40s, first-degree AV block. She was arousable, 1-2 word responses, but fell asleep immediately. Still had pain mid upper quadrant. Ammonia level was 35, BNP was 341, lactic acid was 11. During the course of the evening, she was still in atrial fibrillation, was given digoxin. She apparently had been intubated at some point. There was possible seizure activity on EEG. We consulted because of the severe mitral regurgitation. PAST MEDICAL HISTORY: Mitral regurgitation, chronic atrial fibrillation, anemia, anxiety, gastroesophageal reflux disease. 06/29 still having some epileptic focus on EEG per Neuro, on Keppra , Cerebyx, versed and propofol pupils [place] , , sedated on vent remains in afib rate controlled 07/01 pt not following commands CPAP trials, became tachycardic, placed back on propofol 07/09 pt extubated this am still very sleepy, non verbal not following commands repeat blood cultures now showing strep species ? GI source as per ID repeat BC pending pt needs PT/OT needs to improve neuro salvador / and clear of all infections Objective: Vital Signs Date Time Temp Pulse Resp B/P (MAP) Pulse Ox O2 Delivery O2 Flow Rate FiO2 07/09/17 14:00 97 07/09/17 14:00 109 07/09/17 12:00 97 07/09/17 12:00 98.7 97 24 100 07/09/17 10:39 100 Nasal Cannula 4 07/09/17 10:39 100 Nasal Cannula 4.00 07/09/17 10:00 106 07/09/17 09:31 97 30 07/09/17 09:23 45 07/09/17 09:23 94 45 07/09/17 09:09 97 30 07/09/17 09:09 30 07/09/17 08:04 100 30 07/09/17 08:00 100 07/09/17 08:00 98.9 100 14 114/64 (81) 100 07/09/17 08:00 30 07/09/17 06:00 102 07/09/17 04:00 98.8 99 18 130/67 (88) 100 07/09/17 04:00 30 07/09/17 04:00 99 07/09/17 03:57 100 30 07/09/17 02:00 87 07/09/17 00:13 100 30 07/09/17 00:00 98.7 96 18 113/59 (77) 100 07/09/17 00:00 30 07/09/17 00:00 96 07/08/17 22:00 102 07/08/17 21:40 100 30 07/08/17 20:00 98.9 97 18 113/61 (78) 100 07/08/17 20:00 30 07/08/17 20:00 97 07/08/17 16:00 87 07/08/17 16:00 98.2 87 18 113/55 (74) 100 07/08/17 16:00 30 Labs: Laboratory Tests Test 07/09/17 05:15 07/09/17 08:50 07/09/17 10:14 Phenytoin (Dilantin) Level 2.4 MCG/ML (10.0-20.0) Blood Urea Nitrogen 53 MG/DL (7-18) Creatinine 1.19 MG/DL (0.50-1.00) Random Glucose 94 MG/DL (74-106) Total Protein 7.8 GM/DL (6.4-8.2) Albumin 2.9 GM/DL (3.4-5.0) Calcium Level 10.5 MG/DL (8.5-10.1) Alkaline Phosphatase 253 U/L (45-117) Aspartate Amino Transf (AST/SGOT) 57 U/L (15-37) Alanine Aminotransferase (ALT/SGPT) 57 U/L (10-53) Total Bilirubin 0.8 MG/DL (0.2-1.0) Sodium Level 142 MEQ/L (136-145) Potassium Level 3.4 MEQ/L (3.5-5.1) Chloride Level 106 MEQ/L (98-107) Carbon Dioxide Level 25.7 MEQ/L (21.0-32.0) Anion Gap 10 MEQ/L (5-15) Estimat Glomerular Filtration Rate 46 ML/MIN (>89) Blood Gas Puncture Site LT RADIAL Blood Gas Patient Temperature 98.6 Blood Gas HCO3 25 mmol/L (22-26) Blood Gas Base Excess 0.6 mmol/L (-2-2) Blood Gas Oxygen Saturation 95 % (90-100) Arterial Blood pH 7.40 (7.380-7.420) Arterial Blood Partial Pressure CO2 41 mmHg (38-42) Arterial Blood Partial Pressure O2 110 mmHg (61-120) Arterial Blood Oxygen Content 10.8 Vol % (12.0-20.0) Arterial Blood Carboxyhemoglobin 1.8 % (0-4) Arterial Blood Methemoglobin 1.3 % (0-2) Blood Gas Hemoglobin 7.9 G/DL (12.0-16.0) Oxygen Delivery Device CPAP+5/PS5 Blood Gas Inspired Oxygen 30 % Result Diagram: 07/08/17 1143 07/09/17 0850 (1) Sepsis Plan: cultures neg to date (2) Cardiomyopathy (3) Mitral regurgitation Plan: will monitor peripherally please notify us when pt extubated off all sedation (4) Bradycardia (5) Atrial fibrillation with RVR (6) Anemia (7) Pulmonary edema (8) Cholecystitis Problem Qualifiers (1) Anemia: Qualified Codes: D64.9 - Anemia, unspecified Charis Hines Jul 09, 2017 15:37
[2017-07-09] MEDS: DEXTROSE 5% IN WATE 1000ML INJ 1,000 ML IV SCH (17:53)
[2017-07-09] MEDS: PANTOPRAZOLE SODIUM 40 MG VIAL IV PUSH SCH (21:22)
[2017-07-10] VITALS (15 sets, daily range): BP systolic 141–186; BP diastolic 75–112; PULSE 111–142; RESP 24–31; TEMP 98.4–99.6; O2SAT 95–100
[2017-07-10] MEDS: CHLORHEXIDINE GLUCONATE 2 % 1 PACK (2 CLOTHS) TOP SCH (04:00)
[2017-07-10] MEDS: INSULIN NovoLIN REGULAR SUPPLEMENTAL SCALE SQ SCH ×7 (04:00→23:50)
--- NOTE | 2017-07-10 05:13 | RADRPT ---
EXAM DATE/TIME: 07/10/2017 04:00 [facility] COMPARISON: CHEST SINGLE AP, July 08, 2017, 13:35. INDICATIONS : Evaluate for respiratory disease. MEDICAL HISTORY : None. SURGICAL HISTORY : None. ENCOUNTER: Subsequent ACUITY: 3 weeks PAIN SCORE: Non-responsive. LOCATION: chest FINDINGS: A single view of the chest demonstrates linear atelectatic changes in the left lingular region. Lungs are otherwise clear. Heart size is normal. Endotracheal and nasogastric tubes have been removed. CONCLUSION: 1. Linear atelectatic changes in the left lower lobe/lingular region. Lungs are otherwise clear. 2. Interval removal of the endotracheal and nasogastric tubes. Augustus Garcia MD on July 10, 2017 at 5:10 Board Certified Radiologist. This report was verified electronically.
[2017-07-10] MEDS: METOPROLOL TARTRATE 5 MG/5 ML VIAL IV PUSH PRN ×4 (06:08→22:14)
[2017-07-10] MEDS: FOSPHENYTOIN SODIUM 100 MG PE/2 ML VIAL IV SCH ×3 (06:08→22:05)
[2017-07-10] MEDS: ARTIFICIAL TEARS OPTH SOLN 15 ML BTL EACH EYE SCH ×3 (06:08→21:44)
[2017-07-10] MEDS: CHLORHEXIDINE 0.12% (ORAL KIT) 15 ML CUP MT SCH ×2 (08:00→20:00)
[2017-07-10] MEDS: METOPROLOL TARTRATE 50 MG TAB PO SCH ×2 (09:00→17:26)
[2017-07-10] MEDS: FLUCONAZOLE 100 MG TAB PO SCH ×2 (09:00→17:26)
[2017-07-10] MEDS: POTASSIUM CHLORIDE 25 MEQ EFFERVESCENT TAB PO SCH (09:00)
[2017-07-10] MEDS: AMIODARONE 200 MG TAB PO SCH ×2 (09:00→17:26)
[2017-07-10] MEDS: DOCUSATE SODIUM 50 MG/SENNA 8.6 MG TAB PO SCH ×2 (09:00→17:26)
[2017-07-10] MEDS: ALBUMIN 25% INJ 100 ML IV SCH (09:02)
[2017-07-10] MEDS: levETIRAcetam INJ 500 MG in SODIUM CHLORIDE 0.9% INJ 100 ML IV SCH ×2 (09:02→22:06)
[2017-07-10] MEDS: NYSTATIN SUSP 500,000 U/5 ML CUP SWISH-SWAL SCH ×4 (09:03→21:00)
[2017-07-10] MEDS: FUROSEMIDE 20 MG/2 ML VIAL IV PUSH SCH ×2 (09:03→17:09)
[2017-07-10] MEDS: SODIUM CHLORIDE 0.9% FLUSH 10 ML FLUSH IV FLUSH SCH ×2 (09:03→22:07)
[2017-07-10] MEDS: ENOXAPARIN SODIUM 80 MG/0.8 ML SYRINGE SQ SCH (09:04)
[2017-07-10 09:57] LABS: AUTOMATED NEUTROPHIL # 6.6 TH/MM3 (1.8-7.7); BASOPHIL # 0.1 TH/MM3 (0-0.2); EOSINOPHIL # 0.1 TH/MM3 (0-0.4); EOSINOPHIL % 1.8 % (0.0-4.0); HEMATOCRIT 33.7 % (35.0-46.0); HEMOGLOBIN 10.3 GM/DL (11.6-15.3); LYMPH % 10.1 % (9.0-44.0); LYMPHOCYTE # 0.8 TH/MM3 (1.0-4.8); MEAN CELL VOLUME 71.7 FL (80.0-100.0); MEAN CORPUSCULAR HEMOGLOBIN 21.9 PG (27.0-34.0); MEAN CORPUSCULAR HGB CONC 30.6 % (32.0-36.0); MEAN PLATELET VOLUME 8.5 FL (7.0-11.0); MONO % 6.4 % (0.0-8.0); MONOCYTE # 0.5 TH/MM3 (0-0.9); NEUT % 80.7 % (16.0-70.0); PLATELET COUNT 376 TH/MM3 (150-450); RED CELL DISTRIBUTION WIDTH 22.5 % (11.6-17.2); WHITE BLOOD COUNT 8.1 TH/MM3 (4.0-11.0)
[2017-07-10 10:58] LABS: ALBUMIN 4.8 GM/DL (3.4-5.0); BICARBONATE 24.6 MEQ/L (21.0-32.0); CALCIUM 11.8 MG/DL (8.5-10.1); CALCIUM-PROTEIN CORRECTED 9.9 MG/DL (8.5-10.1); CREATININE 1.05 MG/DL (0.50-1.00); MAGNESIUM 2.1 MG/DL (1.5-2.5); PHENYTOIN (DILANTIN) 12.5 MCG/ML (10.0-20.0); TOTAL PROTEIN 10.3 GM/DL (6.4-8.2)
--- NOTE | 2017-07-10 11:26 | HHI.IDPN ---
Note Infectious Disease Note ID coverage. Notes reviewed. is a 57-year-old with PMHx of COPD, GERD, hypertension, cardiovascular problems that presented to the hospital on 06/23/2017 for complaints of epigastric and abdominal pain, nausea vomiting, shortness of breath. ID following for leucocytosis, acute cholecystitis and pneumonia. Seizure new onset. Discussed with RN. Patient is on room air. She is awake and answer simple questions. Says she feels okay. Very little verbal communication. No distress. Afebrile. Repeat blood culture has no growth in 24 hours. Previous blood culture had strep species in 1 of 4 bottles. Antibiotics Cefepime IV Fluconazole Lines Line sites with no e.o infection Past Medical History reviewed Allergies: Coded Allergies: Sulfa (Sulfonamide Antibiotics) (Verified Allergy, Unknown, 06/23/17) ciprofloxacin (Verified Allergy, Unknown, 06/23/17) hydromorphone (Verified Allergy, Unknown, 06/23/17) Objective Vital Signs Date Time Temp Pulse Resp B/P (MAP) Pulse Ox O2 Delivery O2 Flow Rate FiO2 07/10/17 10:00 137 07/10/17 08:00 98.4 119 24 186/90 (122) 99 07/10/17 08:00 119 07/10/17 07:37 100 21 07/10/17 06:00 131 07/10/17 04:00 117 07/10/17 04:00 98.8 117 25 151/97 (115) 99 07/10/17 02:00 111 07/10/17 00:00 115 07/10/17 00:00 98.4 115 25 141/75 (97) 100 07/09/17 22:00 109 07/09/17 20:00 120 07/09/17 20:00 98.7 120 24 171/97 (121) 98 07/09/17 18:00 101 07/09/17 16:00 98.8 106 21 138/78 (98) 97 07/09/17 16:00 106 07/09/17 14:00 97 07/09/17 14:00 109 07/09/17 12:00 97 07/09/17 12:00 98.7 97 24 100 Laboratory Tests Test 07/08/17 11:43 07/10/17 09:25 White Blood Count 9.3 TH/MM3 8.1 TH/MM3 Red Blood Count 3.21 MIL/MM3 4.70 MIL/MM3 Hemoglobin 7.2 GM/DL 10.3 GM/DL Hematocrit 23.7 % 33.7 % Mean Corpuscular Volume 73.7 FL 71.7 FL Mean Corpuscular Hemoglobin 22.3 PG 21.9 PG Mean Corpuscular Hemoglobin Concent 30.2 % 30.6 % Red Cell Distribution Width 22.0 % 22.5 % Platelet Count 177 TH/MM3 376 TH/MM3 Mean Platelet Volume 9.3 FL 8.5 FL Neutrophils (%) (Auto) 66.1 % 80.7 % Lymphocytes (%) (Auto) 21.6 % 10.1 % Monocytes (%) (Auto) 9.2 % 6.4 % Eosinophils (%) (Auto) 2.1 % 1.8 % Basophils (%) (Auto) 1.0 % 1.0 % Neutrophils # (Auto) 6.1 TH/MM3 6.6 TH/MM3 Lymphocytes # (Auto) 2.0 TH/MM3 0.8 TH/MM3 Monocytes # (Auto) 0.8 TH/MM3 0.5 TH/MM3 Eosinophils # (Auto) 0.2 TH/MM3 0.1 TH/MM3 Basophils # (Auto) 0.1 TH/MM3 0.1 TH/MM3 CBC Comment DIFF FINAL DIFF FINAL Differential Comment Laboratory Tests Test 07/09/17 08:50 07/10/17 09:25 Blood Urea Nitrogen 53 MG/DL 41 MG/DL Creatinine 1.19 MG/DL 1.05 MG/DL Random Glucose 94 MG/DL 115 MG/DL Total Protein 7.8 GM/DL 10.3 GM/DL Albumin 2.9 GM/DL 4.8 GM/DL Calcium Level 10.5 MG/DL 11.8 MG/DL Alkaline Phosphatase 253 U/L 305 U/L Aspartate Amino Transf (AST/SGOT) 57 U/L 55 U/L Alanine Aminotransferase (ALT/SGPT) 57 U/L 62 U/L Total Bilirubin 0.8 MG/DL 1.0 MG/DL Sodium Level 142 MEQ/L 139 MEQ/L Potassium Level 3.4 MEQ/L 3.3 MEQ/L Chloride Level 106 MEQ/L 101 MEQ/L Carbon Dioxide Level 25.7 MEQ/L 24.6 MEQ/L Anion Gap 10 MEQ/L 13 MEQ/L Estimat Glomerular Filtration Rate 46 ML/MIN 54 ML/MIN Magnesium Level 2.1 MG/DL Protein Corrected Calcium 9.9 MG/DL Microbiology Date/Time Source Procedure Growth Status 07/09/17 17:42 Blood Peripheral Aerobic Blood Culture - Preliminary NO GROWTH IN 1 DAY Resulted 07/09/17 17:42 Blood Peripheral Anaerobic Blood Culture - Preliminary NO GROWTH IN 1 DAY Resulted 07/09/17 14:30 Blood Peripheral Aerobic Blood Culture - Preliminary NO GROWTH IN 1 DAY Resulted 07/09/17 14:30 Blood Peripheral Anaerobic Blood Culture - Preliminary NO GROWTH IN 1 DAY Resulted Imaging Chest X-Ray 07/10/17 0600 Signed Impressions: Service Date/Time: Monday, July 10, 2017 04:00 - CONCLUSION: 1. Linear atelectatic changes in the left lower lobe/lingular region. Lungs are otherwise clear. 2. Interval removal of the endotracheal and nasogastric tubes. Augustus Garcia MD Chest CT 07/07/17 0000 Signed Impressions: Service Date/Time: Friday, July 07, 2017 10:35 - CONCLUSION: 1. Interval resolution of bilateral pleural effusions with improved airspace disease in the lower lobes in comparison to 06/24/2017. 2. Very subtle anterior pericardial effusion. Akira Cullen MD Abdomen/Pelvis CT 07/07/17 0000 Signed Impressions: Service Date/Time: Friday, July 07, 2017 10:35 - CONCLUSION: 1. No loculated fluid collections within the abdomen and pelvis to suggest abscess. Drainage catheter remains in right upper quadrant. 2. Improved basilar airspace consolidation in the lungs since June 24. 3. NG coiled in stomach. Ferguson catheter in decompressed bladder. No bowel obstruction, free fluid or free air. Leandro Palacios MD Chest X-Ray 07/06/17 0600 Signed Impressions: Service Date/Time: Thursday, July 06, 2017 03:59 - CONCLUSION: Resolution of the right lower lobe infiltrate. More focal consolidation now seen involving the left lower lobe. Floyd Tiwari Jr., MD Brain MRI 06/27/17 0000 Signed Impressions: Service Date/Time: Tuesday, June 27, 2017 10:00 - CONCLUSION: 1. No acute intracranial abnormality. 2. Mild chronic small vessel ischemic change. Floyd Tiwari Jr., MD Head CT 06/24/17 1645 Signed Impressions: Service Date/Time: Saturday, June 24, 2017 18:00 - CONCLUSION: No acute disease. Brian Burnett MD Percutaneous Cholangiogram 06/24/17 0000 Signed Impressions: Service Date/Time: Saturday, June 24, 2017 20:36 - CONCLUSION: Uncomplicated percutaneous cholecystostomy as above. Lalo Wong MD Physical Exam GENERAL: Patient is awake and alert. No distress.. SKIN: No rash. The skin is warm and moist. HEENT: Appears reactive to light. Extraocular movements grossly intact. Mild scleral icterus. Oral thrush. NECK: Trachea midline. Supple. CARDIOVASCULAR: Normal S1 and S2. No audible murmur. RESPIRATORY: Clear to auscultation. GASTROINTESTINAL: Abdomen soft, nondistended. Cholecystostomy tube in place RUQ. No RUQ tenderness. MUSCULOSKELETAL: Extremities without clubbing, cyanosis, trace edema. NEUROLOGICAL: Awake and alert. PSYCH: Calm and cooperative. IV line sites with no e/o infection. Assessment & Plan Remarks Severe Sepsis present on admission Pneumonia ? HCAP vs aspiration in health care setting. Acute cholecystitis s/p cholecystostomy tube placement. Seizure new onset ? alcohol related. Fevers: ? drug fever ? Vanco IV vs new infection. Normal WBC at time of initial consult. Acute resp failure. Post ventilator. Extubated. Acute metabolic encephalopathy: sepsis, seizures, metabolic. Acute renal failure: ? lasix, prerenal. Recs Change cefepime to Unasyn. The strep likely originated from the gallbladder. Follow the identity of the strep organism. Continue Diflucan for oral thrush. Need to dw surgery team about Abx duration from there standpoint. Follow cultures Follow clinically. Trenton Gómez MD Jul 10, 2017 11:26
[2017-07-10] MEDS: AMPICILLIN-SULBACTAM INJ 3 GM in SODIUM CHLORIDE 0.9% INJ 100 ML IV SCH ×2 (14:13→22:06)
--- NOTE | 2017-07-10 14:17 | HHI.CCPN ---
Subjective Remarks/Hospital Course 57-year-old female. Date of admission 06/23/2017. Date of consultation 2017. Past medical history includes Patient originally presented to [facility] ED in atrial fibrillation with rapid ventricular response. Patient was initially started on a diltiazem drip and then was switched over to metoprolol tartrate 50 mg every 8 hours. After conversion, patient became bradycardic. CT abdomen/pelvis revealed a 1 mm gallstone without signs of cholecystitis. Otherwise unremarkable. The patient became more somnolent on the floor and bradycardic with heart rates as low as 42. EKG revealed sinus bradycardia with a first-degree AV block. Patient was arousable and with good pain in 1-2 word responses but fell asleep immediately. On examination patient did have pain especially in her right upper quadrant. CBC revealed hemoglobin 8.4. Ammonia level 35. BNP of 341. Remainder of laboratories are currently pending. Chest x-ray revealed right lower lobe infiltrate versus effusion. Patient did receive 60 mg total of furosemide within the past 24 hours. 3: Afebrile. Status post percutaneous cholecystostomy tube yesterday with aggressive crystalloid resuscitation. Currently resting in bed in no acute distress. Not on vasopressors. 32: Afebrile. A. fib with RVR overnight started on amiodarone drip. Digoxin 0.25 mg and diltiazem 10 mg given prior to initiation of amiodarone. Remains sedated on the ventilator. Possible seizure activity on EEG. Neurology is been counseled.. EPS cardiology and cardiothoracic surgery also been consulted for tachybradycardia syndrome and severe MR. Dr. Sterling/neurosurgeon is clear to trickle feeds today 33: Afebrile. EEG revealed continuous sharp spikes involving right frontal central region. Remains on levetiracetam at 500 mg every 12 hours. Noted possible switch to fosphenytoin per EEG report. Currently on propofol drip at 30 mcg/kg/min. Withdraws bilateral lower exams. Does not withdraw upper extremities currently. MRI brain currently pending. Tolerating trickle feeds at 10 cc an hour. 3: Repeat EEG pending today. Fosphenytoin added to medication regimen yesterday.No change in neurological assessment. Trickle feeds increased to 20 cc/hour with minimal residuals. 06/29: EEG repeated only showed slow waves possibly medication contributory. Patient previously on anticoagulation prior to admission and her to A. fib RVR, but due to concern for indeterminate source of anemia, GI consulted for recommendations and evaluation of risks/ benefits to initiate anticoagulation therapy. Patient continued to have pleural effusions Lasix IV dose 40 mg given. 06/30: Tolerated CPAP trials 2 hours, continues to be nonresponsive. Patient underwent EGD and colonoscopy colonoscopy was within normal limits. EGD revealed small erosions in the first part of the duodenum and a medium-sized ulcer. Recommended per GI to initiate/ resume anticoagulant therapy. Plan for every 12 hours H&H. 07/01: Patient remained on CPAP trials for approximately 2 hours. Patient remains encephalopathic off sedation. Noted hemoglobin drop will continue to closely monitor as therapeutic anticoagulation was initiated yesterday. 07/02: Hemoglobin stable. Patient continues on CPAP with light sedation. With sedation vacation the patient still is not responding to commands, not tracking. EEG shows no epileptiform activity. Patient will require tracheostomy and PEG placement consideration in the near future .Palliative care has been consulted. 07/03: Afebrile. Sedation has been completely discontinued, patient's opens eyes spontaneously movement of lower extremities to pain,but not on command. Patient continues on CPAP for greater than 24 hours. Plan discussion of to define goals of care with family per palliative care team. ET . 07/04: Tmax 100.0. The patient is now tracking visually, and following some commands ,sedation discontinued greater than 48 hours. Noted chest x-ray improvement. Continues on CPAP Extensive discussion with son this a.m. via telephone( Kenneth Walker), patient would not desire a tracheostomy, long-term mechanical ventilation or PEG. Tentative plan for Thursday for patient's 4 children to meet with palliative care to define goals of care. Discussion regarding blood products, patient is to receive blood products if needed. Per patient's family the patient attends a " [employer]" jewish, but is not a baptized Jehovah witness, and continue transfusion of blood products if needed. 07/05: Hemoglobin remained stable. Patient awake and alert responding with yes and no questions. Following commands. Plan for trial of extubation in a.m., after discussion /(with family and palliative care team. Potassium level 3.2., Repletion KCL with 80 meq this a.m.. 07/06 Patient remains on CPAP PS 10, PEEP:5 with FIO2 305. Awake, tolerating tube feeds. Afebrile. 07/07 Patient was extubated yesterday morning however she was reintubated approx 1700 for resp failure and noted to have stridor, she was placed on Cardizem drip overnight 10mg/hr for Afib RVR, sedated with Diprivan and Fentanyl drip. T; 101.0 last night 07/08: Remains intubated heavily sedated. Appears to be breathing comfortably. Remains in atrial fibrillation but rate controlled. No fever. Cultures so far have been negative. Failed extubation last time due to stridor. Check cuff leak and start CPAP trials if tolerated. Given Decadron 10 mg IV 1, Lasix 60 mg IV 1 due to fluid overload 07/09: Patient remains intubated sedated with propofol and fentanyl. Urine output improved with Lasix 2.7 L in 24 hours. There was no cuff leak when checked yesterday, but patient has just 8.0 tube. Attempt CPAP trial again with parameters, ABG. Mitral regurgitation could be problematic with extubation if severe Subjective 07/10: Resting comfortably in bed in no acute distress. Failed swallow evaluation seen. Replacing potassium today. Continues to be encephalopathic Objective Vital Signs Date Time Temp Pulse Resp B/P (MAP) Pulse Ox O2 Delivery O2 Flow Rate FiO2 07/10/17 10:00 137 07/10/17 08:00 98.4 24 186/90 (122) 99 07/10/17 07:37 21 07/09/17 10:39 Nasal Cannula 4 Intake and Output 07/10/17 07/10/17 07/10/17 07:59 15:59 23:59 Output Total 875 ml Balance -875 ml Result Diagram: 07/10/17 0925 07/10/17 0925 Other Results Microbiology Date/Time Source Procedure Growth Status 07/09/17 17:42 Blood Peripheral Aerobic Blood Culture - Preliminary NO GROWTH IN 1 DAY Resulted 07/09/17 17:42 Blood Peripheral Anaerobic Blood Culture - Preliminary NO GROWTH IN 1 DAY Resulted 06/25/17 08:00 Fluid Bile Fluid Gram Stain - Final Complete 06/25/17 08:00 Fluid Bile Fluid Body Fluid Culture - Final NO GROWTH IN 72 HRS.--AEROBICALLY OR ... Complete 07/06/17 21:22 Sputum Endotracheal Gram Stain - Final Complete 07/06/17 21:22 Sputum Endotracheal Sputum Culture - Final LIGHT GROWTH NORMAL RESPIRATORY DELIO Complete 07/07/17 09:25 Urine Catheterized Urine Urine Culture - Final NO GROWTH IN 48 HOURS. Complete Imaging Last Impressions Chest X-Ray 07/10/17 0600 Signed Impressions: Service Date/Time: Monday, July 10, 2017 04:00 - CONCLUSION: 1. Linear atelectatic changes in the left lower lobe/lingular region. Lungs are otherwise clear. 2. Interval removal of the endotracheal and nasogastric tubes. Augustus Garcia MD Chest CT 07/07/17 0000 Signed Impressions: Service Date/Time: Friday, July 07, 2017 10:35 - CONCLUSION: 1. Interval resolution of bilateral pleural effusions with improved airspace disease in the lower lobes in comparison to 06/24/2017. 2. Very subtle anterior pericardial effusion. Akira Cullen MD Abdomen/Pelvis CT 07/07/17 0000 Signed Impressions: Service Date/Time: Friday, July 07, 2017 10:35 - CONCLUSION: 1. No loculated fluid collections within the abdomen and pelvis to suggest abscess. Drainage catheter remains in right upper quadrant. 2. Improved basilar airspace consolidation in the lungs since June 24. 3. NG coiled in stomach. Ferguson catheter in decompressed bladder. No bowel obstruction, free fluid or free air. Leandro Palacios MD Brain MRI 06/27/17 0000 Signed Impressions: Service Date/Time: Tuesday, June 27, 2017 10:00 - CONCLUSION: 1. No acute intracranial abnormality. 2. Mild chronic small vessel ischemic change. Flyod Tiwari Jr., MD Head CT 06/24/17 1645 Signed Impressions: Service Date/Time: Saturday, June 24, 2017 18:00 - CONCLUSION: No acute disease. Brian Burnett MD Percutaneous Cholangiogram 06/24/17 0000 Signed Impressions: Service Date/Time: Saturday, June 24, 2017 20:36 - CONCLUSION: Uncomplicated percutaneous cholecystostomy as above. Lalo Wong MD Objective Remarks GENERAL: 57-year-old female currently resting in bed on room air in no acute distress SKIN: Warm and dry. No rash. Well perfused HEAD: Atraumatic. Normocephalic. EYES: Pupils equal and round about 2 mm bilaterally and brisk. No scleral icterus. No injection or drainage. ENT: No nasal bleeding or discharge. Orotracheally intubated NECK: Trachea midline. No JVD. CARDIOVASCULAR: Tachycardia, IR. S1, S2 no S4. RESPIRATORY: Air entry diminished at the bases. No wheezing GASTROINTESTINAL: Abdomen soft, tender to palpation in the right upper quadrant and epigastric region. Cholecystostomy tube in place with bile drainage. MUSCULOSKELETAL: Extremities with trace lower extremity peripheral edema. No obvious deformities. 1+ edema right upper extremity NEUROLOGICAL: Cranial nerves II through XII grossly intact. Strength is equal symmetric. Normal sensation Urinary Catheter: No Assessment to: Continue Vascular Central Line Catheter: No Assessment to: Continue Date of Insertion: Jun 24, 2017 Date of Removal: Jul 09, 2017 Line: Central Venous Catheter Side: Right Location: Subclavian A/P Assessment and Plan Neuro/Psych: Metabolic encephalopathy UDS positive for barbiturates Depression/anxiety Seizure questionable Currently acetaminophen 650 mg every 6 hours as needed fever CT brain 06/24 revealed no acute intracranial findings EEG 06/25 revealed right frontal lobe sharp activity indicative of epileptiform. Loaded with levetiracetam 1 g IV 1 on 06/26 followed by 500 mg IV twice daily. Repeat EEG 06/26 revealed continuous sharps in right frontal region, Repeat EEG 06/28- no epileptiform activity Neurology- Dr. Shannon following 06/27 MRI brain-no acute intracranial abnormality On fosphenytoin 150 mg every 8 hours and levetiracetam 500 IV twice daily per Neuro, follow phenytoin level Repeat level in a.m. 07/11 Previously on paroxetine unknown dosage for depression CV: Atrial fibrillation rate controlled History of atrial fibrillation Hypertension Lactic acidosis resolved Moderate to Severe TR/MR Acute diastolic heart failure Tachybradycardia syndrome Currently on amiodarone 200 mg twice daily with metoprolol 50 mg twice daily As needed diltiazem drip 2D echocardiogram revealed EF 45-50%. Decreased LV systolic function. Bilateral atrial enlargement. Moderate to Severe MR and TR. Cardiology is following, EPS consult secondary to tachybradycardia syndrome-no intervention at this time 2/[address] surgery consulted to evaluate severe MR- Dr. Paul following-no intervention at this time 2/ clinical status, but once clinically improved will reevaluate for surgery Lactate is cleared 06/26 Labetalol PRN for SBP > 165 Currently furosemide 20 mg IV twice daily Resp: Acute respiratory failure Intubated 06/24, extubated and reintubated on 07/06 Stridor Right lower lobe infiltrate/pleural effusion Nasal cannula to maintain saturation greater than equal to 92% Incentive spirometry while awake Completed Solumedrol 40mg Q6 for stridor. Given Decadron 10 mg IV 1 07/08 Previous extubation failure most likely from stridor but severe MR might also significantly contributing Follow chest x-ray in a.m. GI: Cholelithiasis on ultrasound 06/23 possibly acute cholecystitis Hypoalbuminemia Gastroesophageal reflux disease Elevated transaminases CT abdomen/pelvis 06/23 revealed a 1 mm gallstone. No signs of cholecystitis. Otherwise unremarkable CT abdomen/pelvis 06/24 revealed right > left pleural effusions. Gallbladder wall thickening with voracious dye excretion, descending colon edema and bilateral perinephric stranding Status post cholecystostomy tube by IR 06/24- monitor output, fluid cx: no growth General surgery recommended continue cholecystostomy tube placement. Outpatient follow-up for cholecystectomy. on pantoprazole 40 mg IV. daily for gastroesophageal reflux disease Docusate sodium/senna 1 tablet twice daily for bowel regimen GI Dr. Naqvi - S/P colonoscopy and endoscopy 06/30, upper endoscopy revealed medium-sized ulcer first part of duodenum, multiple small erosions gastric antrum. Colon- Normal mucosa Failed swallowing evaluation we will Place Keofeed tube for nutrition/ medications and restart t vital 1.5 at 50 cc an hour Renal/FEN/: Acute kidney injury Hypercalcemia Hypokalemia Monitor renal function, electrolytes replacement per protocol. 40 mEq KCl by tube 1 now 30 mg IV 1 now. Recheck in a.m. We will start tube feeding once NG tube placed Endo: Sliding-scale insulin Novulin R with Accu-Cheks every 4 hours to maintain euglycemia/low regimen TSH -1.76 Heme: Microcytic hypochromic anemia Monitor CBC daily. Follow trend ID: Sepsis likely acute cholecystitis Strep pneumo bacteremia Patient has been on Pipracil/tazobactam since 06/24 and Vanco since 06/30- All previous cultures negative. C-diff PCR negative on 07/06 07/07 blood culture revealed strep pneumo bacteremia. Repeat 07/09 pending Currently on c ampicillin/sulbactam and micafungin. Vancomycin DC'd 07/07 by ID 06/25 Urine Legionella pneumococcal antigens no growth Influenza negative Pertinent cultures 07/09: Blood cultures 2 no growth 07/07 -blood culture -strep pneumo 06/25 -bile -no growth 06/25 -sputum -no growth 06/24 -blood cultures 4 -no growth 06/24 -urine -p no growth MSK: PT evaluate and treat Daily functional maintenance Multi-Podus boots bilaterally Prophylaxis -GI -pantoprazole -DVT -SCDs, changed to enoxaparin 80mg daily given worsening renal function. Palliative care is following Level 3 Guillermo Pratt MD Jul 10, 2017 14:17
[2017-07-10] MEDS: RESP: ALBUTEROL 2.5 MG/IPRATROPIUM 0.5 MG NEB (SCH) NEB ×2 (15:57→19:23)
[2017-07-10] MEDS ORDERED: POTASSIUM CHLORIDE 20 MEQ PWD PACKET PO ONE (16:00)
--- NOTE | 2017-07-10 16:19 | HHI.HCPN ---
Reason for visit a. To assist with evaluation and management of symptoms including: dyspnea. pain b. To assist medical decision maker(s) with: better understanding of current medical conditions; weighing benefits/burdens of medical treatment options; making medical treatment decisions. Subjective/Interval History Patient seen in follow-up on comfort, goals. Medically extubated 07/09 tolerating NC. S/p ST evaluation not tolerating any consistency, high risk for aspiration. ST will repeat evaluation. May require feeding tube if swallowing does not improve. Still encephalopathic, Confused, though alert. BUN /creatinine down slightly 41/1.05. Hypokalemic, repletion per critical care. CXR = Linear atelectatic changes in the left lower lobe/ lingular region. Lungs are otherwise clear. To my exam pt is awake, tracks examiner. She nods to some yes/no questions, though not all, and not always appropriately. Briefly explain hospital course, she looks at me blankly. She nods no to pain, no to SOB. No apparent discomfort. Looks around room while examiner present, at times moving around in bed restless. Following exam call to son Kenneth. At update on current clinical assessment, condition, neurological status, ST evaluation recent diagnostics etc. Review of possible trajectory going forward and the possibility that patient could require temporary or longer term feeding tube if swallowing abilities don't improve and oral intake is not possible. Further explore patient remains at risk for potential cardiac, respiratory and other complications. Encourage him in the family to again discuss reintubation/ CODE STATUS as the patient could still develop respiratory deterioration. He has additional questions about tracheostomy, review tracheostomy and feeding tube long-term versus short-term is dependent on whether other medical issues warranting those measures are resolved though they could be longer-term measures if underlying medical issues are unable to be corrected. All questions answered. . Advance Directives Living Will: Never completed Health Care Surrogate: Never completed Durable Power of Blood Bank Specialist: Never completed Objective Vital Signs Date Time Temp Pulse Resp B/P (MAP) Pulse Ox O2 Delivery O2 Flow Rate FiO2 07/10/17 10:00 137 07/10/17 08:00 98.4 119 24 186/90 (122) 99 07/10/17 08:00 119 07/10/17 07:37 100 21 07/10/17 06:00 131 07/10/17 04:00 117 07/10/17 04:00 98.8 117 25 151/97 (115) 99 07/10/17 02:00 111 07/10/17 00:00 115 07/10/17 00:00 98.4 115 25 141/75 (97) 100 07/09/17 22:00 109 07/09/17 20:00 120 07/09/17 20:00 98.7 120 24 171/97 (121) 98 07/09/17 18:00 101 07/09/17 16:00 98.8 106 21 138/78 (98) 97 07/09/17 16:00 106 Intake & Output 07/10/17 07/10/17 07:00 19:00 Output Total 875 ml Balance -875 ml Output Urine Total 750 ml Drainage Total 125 ml # Bowel Movements 0 Physical Exam CONSTITUTIONAL/GENERAL: This is an adequately nourished patient, awake, confused TUBES/LINES/DRAINS: PIV upper extremities , arguello catheter, NC SKIN: slight jaundice, rashes, or lesions. Skin warm/dry NECK: Trachea midline. Supple, nontender. No palpable thyroid enlargement or nodularity. CARDIOVASCULAR: Irregular rate and rhythm without murmur, rate 90s. Peripheral pulses symmetric. RESPIRATORY/CHEST: Symmetric, unlabored respirations on NC.Clear to auscultation. Breath sounds equal bilaterally. GASTROINTESTINAL: Abdomen soft, no apparent tenderness, nondistended. No palpable masses. Bowel sounds present.Drain from rt side sm amt brownish yellow present GENITOURINARY: Without palpable bladder distension. Arguello catheter in place. NEUROLOGICAL: awake, tracks examiner. Eyes open. Moving all 4 extremities. no consistently following commands. Nonverbal, nods some, does not answer yes/no questions approp, appears confused. Smiles. PSYCHIATRIC: No obvious anxiety/depression- limited assessment due to clinical condition Diagnostic Tests Laboratory Laboratory Tests Test 07/08/17 00:57 07/08/17 10:08 07/08/17 11:43 07/09/17 05:15 Urine Eosinophils NONE SEEN /HPF (NONE SEEN) Blood Urea Nitrogen 52 MG/DL (7-18) Creatinine 1.36 MG/DL (0.50-1.00) Random Glucose 94 MG/DL (74-106) Total Protein 7.4 GM/DL (6.4-8.2) Albumin 2.3 GM/DL (3.4-5.0) Calcium Level 9.5 MG/DL (8.5-10.1) Alkaline Phosphatase 234 U/L (45-117) Aspartate Amino Transf (AST/SGOT) 80 U/L (15-37) Alanine Aminotransferase (ALT/SGPT) 56 U/L (10-53) Total Bilirubin 0.7 MG/DL (0.2-1.0) Sodium Level 142 MEQ/L (136-145) Potassium Level 3.7 MEQ/L (3.5-5.1) Chloride Level 110 MEQ/L (98-107) Carbon Dioxide Level 21.3 MEQ/L (21.0-32.0) Anion Gap 11 MEQ/L (5-15) Estimat Glomerular Filtration Rate 40 ML/MIN (>89) White Blood Count 9.3 TH/MM3 (4.0-11.0) Red Blood Count 3.21 MIL/MM3 (4.00-5.30) Hemoglobin 7.2 GM/DL (11.6-15.3) Hematocrit 23.7 % (35.0-46.0) Mean Corpuscular Volume 73.7 FL (80.0-100.0) Mean Corpuscular Hemoglobin 22.3 PG (27.0-34.0) Mean Corpuscular Hemoglobin Concent 30.2 % (32.0-36.0) Red Cell Distribution Width 22.0 % (11.6-17.2) Platelet Count 177 TH/MM3 (150-450) Mean Platelet Volume 9.3 FL (7.0-11.0) Neutrophils (%) (Auto) 66.1 % (16.0-70.0) Lymphocytes (%) (Auto) 21.6 % (9.0-44.0) Monocytes (%) (Auto) 9.2 % (0.0-8.0) Eosinophils (%) (Auto) 2.1 % (0.0-4.0) Basophils (%) (Auto) 1.0 % (0.0-2.0) Neutrophils # (Auto) 6.1 TH/MM3 (1.8-7.7) Lymphocytes # (Auto) 2.0 TH/MM3 (1.0-4.8) Monocytes # (Auto) 0.8 TH/MM3 (0-0.9) Eosinophils # (Auto) 0.2 TH/MM3 (0-0.4) Basophils # (Auto) 0.1 TH/MM3 (0-0.2) CBC Comment DIFF FINAL Differential Comment Phenytoin (Dilantin) Level 2.4 MCG/ML (10.0-20.0) Test 07/09/17 08:50 07/09/17 10:14 07/10/17 09:25 Blood Urea Nitrogen 53 MG/DL (7-18) 41 MG/DL (7-18) Creatinine 1.19 MG/DL (0.50-1.00) 1.05 MG/DL (0.50-1.00) Random Glucose 94 MG/DL (74-106) 115 MG/DL (74-106) Total Protein 7.8 GM/DL (6.4-8.2) 10.3 GM/DL (6.4-8.2) Albumin 2.9 GM/DL (3.4-5.0) 4.8 GM/DL (3.4-5.0) Calcium Level 10.5 MG/DL (8.5-10.1) 11.8 MG/DL (8.5-10.1) Alkaline Phosphatase 253 U/L (45-117) 305 U/L (45-117) Aspartate Amino Transf (AST/SGOT) 57 U/L (15-37) 55 U/L (15-37) Alanine Aminotransferase (ALT/SGPT) 57 U/L (10-53) 62 U/L (10-53) Total Bilirubin 0.8 MG/DL (0.2-1.0) 1.0 MG/DL (0.2-1.0) Sodium Level 142 MEQ/L (136-145) 139 MEQ/L (136-145) Potassium Level 3.4 MEQ/L (3.5-5.1) 3.3 MEQ/L (3.5-5.1) Chloride Level 106 MEQ/L (98-107) 101 MEQ/L (98-107) Carbon Dioxide Level 25.7 MEQ/L (21.0-32.0) 24.6 MEQ/L (21.0-32.0) Anion Gap 10 MEQ/L (5-15) 13 MEQ/L (5-15) Estimat Glomerular Filtration Rate 46 ML/MIN (>89) 54 ML/MIN (>89) Blood Gas Puncture Site LT RADIAL Blood Gas Patient Temperature 98.6 Blood Gas HCO3 25 mmol/L (22-26) Blood Gas Base Excess 0.6 mmol/L (-2-2) Blood Gas Oxygen Saturation 95 % (90-100) Arterial Blood pH 7.40 (7.380-7.420) Arterial Blood Partial Pressure CO2 41 mmHg (38-42) Arterial Blood Partial Pressure O2 110 mmHg (61-120) Arterial Blood Oxygen Content 10.8 Vol % (12.0-20.0) Arterial Blood Carboxyhemoglobin 1.8 % (0-4) Arterial Blood Methemoglobin 1.3 % (0-2) Blood Gas Hemoglobin 7.9 G/DL (12.0-16.0) Oxygen Delivery Device CPAP+5/PS5 Blood Gas Inspired Oxygen 30 % White Blood Count 8.1 TH/MM3 (4.0-11.0) Red Blood Count 4.70 MIL/MM3 (4.00-5.30) Hemoglobin 10.3 GM/DL (11.6-15.3) Hematocrit 33.7 % (35.0-46.0) Mean Corpuscular Volume 71.7 FL (80.0-100.0) Mean Corpuscular Hemoglobin 21.9 PG (27.0-34.0) Mean Corpuscular Hemoglobin Concent 30.6 % (32.0-36.0) Red Cell Distribution Width 22.5 % (11.6-17.2) Platelet Count 376 TH/MM3 (150-450) Mean Platelet Volume 8.5 FL (7.0-11.0) Neutrophils (%) (Auto) 80.7 % (16.0-70.0) Lymphocytes (%) (Auto) 10.1 % (9.0-44.0) Monocytes (%) (Auto) 6.4 % (0.0-8.0) Eosinophils (%) (Auto) 1.8 % (0.0-4.0) Basophils (%) (Auto) 1.0 % (0.0-2.0) Neutrophils # (Auto) 6.6 TH/MM3 (1.8-7.7) Lymphocytes # (Auto) 0.8 TH/MM3 (1.0-4.8) Monocytes # (Auto) 0.5 TH/MM3 (0-0.9) Eosinophils # (Auto) 0.1 TH/MM3 (0-0.4) Basophils # (Auto) 0.1 TH/MM3 (0-0.2) CBC Comment DIFF FINAL Differential Comment Magnesium Level 2.1 MG/DL (1.5-2.5) Protein Corrected Calcium 9.9 MG/DL (8.5-10.1) Phenytoin (Dilantin) Level 12.5 MCG/ML (10.0-20.0) Result Diagram: 07/10/1792407/10/17 0925 Microbiology Microbiology Date/Time Source Procedure Growth Status 07/09/17 17:42 Blood Peripheral Aerobic Blood Culture - Preliminary NO GROWTH IN 1 DAY Resulted 07/09/17 17:42 Blood Peripheral Anaerobic Blood Culture - Preliminary NO GROWTH IN 1 DAY Resulted 07/09/17 14:30 Blood Peripheral Aerobic Blood Culture - Preliminary NO GROWTH IN 1 DAY Resulted 07/09/17 14:30 Blood Peripheral Anaerobic Blood Culture - Preliminary NO GROWTH IN 1 DAY Resulted Imaging Last Impressions Chest X-Ray 07/10/17 0600 Signed Impressions: Service Date/Time: Monday, July 10, 2017 04:00 - CONCLUSION: 1. Linear atelectatic changes in the left lower lobe/lingular region. Lungs are otherwise clear. 2. Interval removal of the endotracheal and nasogastric tubes. Augustus Garcia MD Chest CT 07/07/17 0000 Signed Impressions: Service Date/Time: Friday, July 07, 2017 10:35 - CONCLUSION: 1. Interval resolution of bilateral pleural effusions with improved airspace disease in the lower lobes in comparison to 06/24/2017. 2. Very subtle anterior pericardial effusion. Akira Cullen MD Abdomen/Pelvis CT 07/07/17 0000 Signed Impressions: Service Date/Time: Friday, July 07, 2017 10:35 - CONCLUSION: 1. No loculated fluid collections within the abdomen and pelvis to suggest abscess. Drainage catheter remains in right upper quadrant. 2. Improved basilar airspace consolidation in the lungs since June 24. 3. NG coiled in stomach. Arguello catheter in decompressed bladder. No bowel obstruction, free fluid or free air. Leandro Palacios MD Brain MRI 06/27/17 0000 Signed Impressions: Service Date/Time: Tuesday, June 27, 2017 10:00 - CONCLUSION: 1. No acute intracranial abnormality. 2. Mild chronic small vessel ischemic change. Floyd Tiwari Jr., MD Head CT 06/24/17 1645 Signed Impressions: Service Date/Time: Saturday, June 24, 2017 18:00 - CONCLUSION: No acute disease. Brian Burnett MD Percutaneous Cholangiogram 06/24/17 0000 Signed Impressions: Service Date/Time: Saturday, June 24, 2017 20:36 - CONCLUSION: Uncomplicated percutaneous cholecystostomy as above. Lalo Wong MD Procedures 07/09 extubated 07/06 extubated- reintubated 07/06 Assessment and Plan Disease Oriented Problem List: (1) Atrial fibrillation with RVR (2) Anemia (3) Pulmonary edema (4) Cholecystitis (5) Cardiomyopathy (6) Acute encephalopathy (7) Hypertension (8) Tachy-joe syndrome (9) Severe mitral regurgitation (10) Diastolic heart failure (11) Sepsis (12) GERD (gastroesophageal reflux disease) Symptom Scale: (1) Dyspnea 0-10 Scale: Unable to quantify (2) Pain 0-10 Scale: Unable to quantify (3) Encephalopathy 0-10 Scale: Unable to quantify Pertinent Non-Medical Issues Psychosocial: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 Spiritual:none listed. Legal:Pt is . Currently has 4 children Billy Mcqueen, Kenneth [phone] Yaneth; [phone] Health care proxy are the 4 children. Ethical issues impacting care:none Important Contacts Son: Kenneth [phone] dtr Yaneth [phone]. dtr Charisse [phone] son Billy [phone] . Prognosis 57 year old prognosis is guarded. Code Status: Full Code Plan ==Code: FULL CODE == Decision maker- pt currently does not capacity to make medical decisions.pt is . No advance directives. [place] proxy would be pt's four children: Kenneth, Yaneth, Charisse, and Billy. (family indicated they are OK w Kenneth serving as spokesperson.) == symptoms: pain- acute cholecystitis, now bedbound. +abd tender to exam. Cautious use opiates 2/2 AMS/encephalopathy,recent medical extubation. dyspnea- on mechanical ventilation--> medically extubated 07/06, tolerating room air-->> later reintubated. CXR some improvement RLL, + consolidation LLL.CT chest neg acute process EXTUBATED again 07/09, tolerating NC encephalopathy- hx ? seizures. ? toxic metabolic encephalopathy.ammonia 07/03 =10. 07/09 -07/10 confused, not consistently following commands/non verbal not answering yes/no appropriately == goals of care: Again reviewed CODE STATUS/reintubation status as patient now extubated again. We have reviewed the alternative of ongoing aggressive interventions (including possible tracheostomy, feeding tube) vs comfort directed treatment. For now family hoping she will improve, though understand she may not , they are open to ongoing discussion as clinical course evolves. == palliative care will follow to make recommendations for symptoms and to review goals of care as pt's condition evolves. Attestation To help prompt me to consider important information that might be impacting today's encounter and assessment, information from prior notes written by myself or my colleagues may have been "brought forward" into today's note. My signature on this note, however, is an attestation that I personally performed the exam, history, and/or decision-making noted today, and, unless otherwise indicated, the interactions with patient, family, and staff as well as the review of records all occurred today. I also attest that the listed assessment and stated plan reflect my best clinical judgment today based on the combination of historical information, prior notes, and today's exam/ interactions. When time spent is documented, it refers only to time spent today by the signer, or if indicated, combined time spent today by collaborating physician/nurse practitioner. Idalia Riggs Jul 10, 2017 16:19
[2017-07-10] MEDS ORDERED: CALCITONIN SALMON INJ 400 UNITS/2 ML VIAL SQ ONE (17:00)
[2017-07-10] MEDS: POTASSIUM CHLOR 10 MEQ PREMIX 100 ML IV SCH ×3 (17:10→22:08)
[2017-07-10] MEDS: DEXTROSE 5% IN WATE 1000ML INJ 1,000 ML IV SCH (19:00)
[2017-07-10] MEDS: PANTOPRAZOLE SODIUM 40 MG VIAL IV PUSH SCH (22:05)
[2017-07-11] VITALS (50 sets, daily range): BP systolic 119–155; BP diastolic 61–112; PULSE 107–153; RESP 23–31; TEMP 97.9–100; O2SAT 96–100
[2017-07-11] MEDS: RESP: ALBUTEROL 2.5 MG/IPRATROPIUM 0.5 MG NEB (SCH) NEB ×7 (00:15→23:33)
[2017-07-11] MEDS: AMPICILLIN-SULBACTAM INJ 3 GM in SODIUM CHLORIDE 0.9% INJ 100 ML IV SCH ×4 (03:06→20:37)
[2017-07-11] MEDS: INSULIN NovoLIN REGULAR SUPPLEMENTAL SCALE SQ SCH ×5 (03:06→20:00)
[2017-07-11] MEDS: CHLORHEXIDINE GLUCONATE 2 % 1 PACK (2 CLOTHS) TOP SCH ×2 (03:07→20:42)
[2017-07-11] MEDS: FOSPHENYTOIN SODIUM 100 MG PE/2 ML VIAL IV SCH ×3 (05:01→20:42)
[2017-07-11] MEDS: METOPROLOL TARTRATE 5 MG/5 ML VIAL IV PUSH PRN (05:01)
[2017-07-11] MEDS: ARTIFICIAL TEARS OPTH SOLN 15 ML BTL EACH EYE SCH ×3 (05:01→20:38)
--- NOTE | 2017-07-11 06:37 | RADRPT ---
EXAM DATE/TIME: 07/11/2017 04:27 [facility] COMPARISON: CHEST SINGLE AP, July 10, 2017, 4:00. INDICATIONS : Shortness of breath, possible pulmonary disease. MEDICAL HISTORY : None. SURGICAL HISTORY : None. ENCOUNTER: Subsequent ACUITY: 3 weeks PAIN SCORE: Non-responsive. LOCATION: Bilateral chest FINDINGS: A single view of the chest demonstrates the lungs to be symmetrically aerated with persistent left li ngular atelectasis/scarring. Lungs are otherwise clear. The cardiomediastinal contours are unremarka ble. Osseous structures are intact. CONCLUSION: Stable chest. Augustus Garcia MD on July 11, 2017 at 6:35 Board Certified Radiologist. This report was verified electronically.
[2017-07-11] MEDS: CHLORHEXIDINE 0.12% (ORAL KIT) 15 ML CUP MT SCH ×2 (08:00→19:31)
[2017-07-11] MEDS: SODIUM CHLORIDE 0.9% FLUSH 10 ML FLUSH IV FLUSH SCH ×2 (09:00→20:42)
--- NOTE | 2017-07-11 09:43 | HHI.CCPN ---
Subjective Remarks/Hospital Course 57-year-old female. Date of admission 06/23/2017. Date of consultation 2017. Past medical history includes Patient originally presented to [facility] ED in atrial fibrillation with rapid ventricular response. Patient was initially started on a diltiazem drip and then was switched over to metoprolol tartrate 50 mg every 8 hours. After conversion, patient became bradycardic. CT abdomen/pelvis revealed a 1 mm gallstone without signs of cholecystitis. Otherwise unremarkable. The patient became more somnolent on the floor and bradycardic with heart rates as low as 42. EKG revealed sinus bradycardia with a first-degree AV block. Patient was arousable and with good pain in 1-2 word responses but fell asleep immediately. On examination patient did have pain especially in her right upper quadrant. CBC revealed hemoglobin 8.4. Ammonia level 35. BNP of 341. Remainder of laboratories are currently pending. Chest x-ray revealed right lower lobe infiltrate versus effusion. Patient did receive 60 mg total of furosemide within the past 24 hours. 3: Afebrile. Status post percutaneous cholecystostomy tube yesterday with aggressive crystalloid resuscitation. Currently resting in bed in no acute distress. Not on vasopressors. 32: Afebrile. A. fib with RVR overnight started on amiodarone drip. Digoxin 0.25 mg and diltiazem 10 mg given prior to initiation of amiodarone. Remains sedated on the ventilator. Possible seizure activity on EEG. Neurology is been counseled.. EPS cardiology and cardiothoracic surgery also been consulted for tachybradycardia syndrome and severe MR. Dr. Sterling/neurosurgeon is clear to trickle feeds today 33: Afebrile. EEG revealed continuous sharp spikes involving right frontal central region. Remains on levetiracetam at 500 mg every 12 hours. Noted possible switch to fosphenytoin per EEG report. Currently on propofol drip at 30 mcg/kg/min. Withdraws bilateral lower exams. Does not withdraw upper extremities currently. MRI brain currently pending. Tolerating trickle feeds at 10 cc an hour. 3: Repeat EEG pending today. Fosphenytoin added to medication regimen yesterday.No change in neurological assessment. Trickle feeds increased to 20 cc/hour with minimal residuals. 06/29: EEG repeated only showed slow waves possibly medication contributory. Patient previously on anticoagulation prior to admission and her to A. fib RVR, but due to concern for indeterminate source of anemia, GI consulted for recommendations and evaluation of risks/ benefits to initiate anticoagulation therapy. Patient continued to have pleural effusions Lasix IV dose 40 mg given. 06/30: Tolerated CPAP trials 2 hours, continues to be nonresponsive. Patient underwent EGD and colonoscopy colonoscopy was within normal limits. EGD revealed small erosions in the first part of the duodenum and a medium-sized ulcer. Recommended per GI to initiate/ resume anticoagulant therapy. Plan for every 12 hours H&H. 07/01: Patient remained on CPAP trials for approximately 2 hours. Patient remains encephalopathic off sedation. Noted hemoglobin drop will continue to closely monitor as therapeutic anticoagulation was initiated yesterday. 07/02: Hemoglobin stable. Patient continues on CPAP with light sedation. With sedation vacation the patient still is not responding to commands, not tracking. EEG shows no epileptiform activity. Patient will require tracheostomy and PEG placement consideration in the near future .Palliative care has been consulted. 07/03: Afebrile. Sedation has been completely discontinued, patient's opens eyes spontaneously movement of lower extremities to pain,but not on command. Patient continues on CPAP for greater than 24 hours. Plan discussion of to define goals of care with family per palliative care team. ET . 07/04: Tmax 100.0. The patient is now tracking visually, and following some commands ,sedation discontinued greater than 48 hours. Noted chest x-ray improvement. Continues on CPAP Extensive discussion with son this a.m. via telephone( Kenneth Walker), patient would not desire a tracheostomy, long-term mechanical ventilation or PEG. Tentative plan for Thursday for patient's 4 children to meet with palliative care to define goals of care. Discussion regarding blood products, patient is to receive blood products if needed. Per patient's family the patient attends a " [employer]" hind[employer], but is not a baptized Jehovah witness, and continue transfusion of blood products if needed. 07/05: Hemoglobin remained stable. Patient awake and alert responding with yes and no questions. Following commands. Plan for trial of extubation in a.m., after discussion /(with family and palliative care team. Potassium level 3.2., Repletion KCL with 80 meq this a.m.. 07/06 Patient remains on CPAP PS 10, PEEP:5 with FIO2 305. Awake, tolerating tube feeds. Afebrile. 07/07 Patient was extubated yesterday morning however she was reintubated approx 1700 for resp failure and noted to have stridor, she was placed on Cardizem drip overnight 10mg/hr for Afib RVR, sedated with Diprivan and Fentanyl drip. T; 101.0 last night 07/08: Remains intubated heavily sedated. Appears to be breathing comfortably. Remains in atrial fibrillation but rate controlled. No fever. Cultures so far have been negative. Failed extubation last time due to stridor. Check cuff leak and start CPAP trials if tolerated. Given Decadron 10 mg IV 1, Lasix 60 mg IV 1 due to fluid overload 07/09: Patient remains intubated sedated with propofol and fentanyl. Urine output improved with Lasix 2.7 L in 24 hours. There was no cuff leak when checked yesterday, but patient has just 8.0 tube. Attempt CPAP trial again with parameters, ABG. Mitral regurgitation could be problematic with extubation if severe 07/10: Resting comfortably in bed in no acute distress. Failed swallow evaluation seen. Replacing potassium today. Continues to be encephalopathic Subjective 07/11: T-max 100. Currently afebrile currently in A. fib with RVR. Remains confused. Tolerated cardiac meds by mouth overnight. Will attempt to place another small bore NG tube today. Objective Vital Signs Date Time Temp Pulse Resp B/P (MAP) Pulse Ox O2 Delivery O2 Flow Rate FiO2 07/11/17 08:23 98 07/11/17 06:00 114 07/11/17 04:00 98.8 27 154/71 (98) 07/10/17 07:37 21 07/09/17 10:39 Nasal Cannula 4 Intake and Output 07/11/17 07/11/17 07/12/17 08:00 16:00 00:00 Intake Total 705 ml Output Total 525 ml Balance 180 ml Result Diagram: 07/10/1725 07/10/17 0925 Other Results Microbiology Date/Time Source Procedure Growth Status 07/09/17 17:42 Blood Peripheral Aerobic Blood Culture - Preliminary NO GROWTH IN 1 DAY Resulted 07/09/17 17:42 Blood Peripheral Anaerobic Blood Culture - Preliminary NO GROWTH IN 1 DAY Resulted 06/25/17 08:00 Fluid Bile Fluid Gram Stain - Final Complete 06/25/17 08:00 Fluid Bile Fluid Body Fluid Culture - Final NO GROWTH IN 72 HRS.--AEROBICALLY OR ... Complete 07/06/17 21:22 Sputum Endotracheal Gram Stain - Final Complete 07/06/17 21:22 Sputum Endotracheal Sputum Culture - Final LIGHT GROWTH NORMAL RESPIRATORY DELIO Complete 07/07/17 09:25 Urine Catheterized Urine Urine Culture - Final NO GROWTH IN 48 HOURS. Complete Imaging Last Impressions Chest X-Ray 07/11/17 0600 Signed Impressions: Service Date/Time: Tuesday, July 11, 2017 04:27 - CONCLUSION: Stable chest. Augustus Garcia MD Chest CT 07/07/17 0000 Signed Impressions: Service Date/Time: Friday, July 07, 2017 10:35 - CONCLUSION: 1. Interval resolution of bilateral pleural effusions with improved airspace disease in the lower lobes in comparison to 06/24/2017. 2. Very subtle anterior pericardial effusion. Akira Cullen MD Abdomen/Pelvis CT 07/07/17 0000 Signed Impressions: Service Date/Time: Friday, July 07, 2017 10:35 - CONCLUSION: 1. No loculated fluid collections within the abdomen and pelvis to suggest abscess. Drainage catheter remains in right upper quadrant. 2. Improved basilar airspace consolidation in the lungs since June 24. 3. NG coiled in stomach. Ferguson catheter in decompressed bladder. No bowel obstruction, free fluid or free air. Leandro Palacios MD Brain MRI 06/27/17 0000 Signed Impressions: Service Date/Time: Tuesday, June 27, 2017 10:00 - CONCLUSION: 1. No acute intracranial abnormality. 2. Mild chronic small vessel ischemic change. Floyd Tiwari Jr., MD Head CT 06/24/17 1645 Signed Impressions: Service Date/Time: Saturday, June 24, 2017 18:00 - CONCLUSION: No acute disease. Brian Burnett MD Percutaneous Cholangiogram 06/24/17 0000 Signed Impressions: Service Date/Time: Saturday, June 24, 2017 20:36 - CONCLUSION: Uncomplicated percutaneous cholecystostomy as above. Lalo Wong MD Objective Remarks GENERAL: 57-year-old female currently resting in bed on room air in no acute distress SKIN: Warm and dry. No rash. Well perfused HEAD: Atraumatic. Normocephalic. EYES: Pupils equal and round about 2 mm bilaterally and brisk. No scleral icterus. No injection or drainage. ENT: No nasal bleeding or discharge. Orotracheally intubated NECK: Trachea midline. No JVD. CARDIOVASCULAR: Tachycardia, IR. S1, S2 no S4. RESPIRATORY: Air entry diminished at the bases. No wheezing GASTROINTESTINAL: Abdomen soft, tender to palpation in the right upper quadrant and epigastric region. Cholecystostomy tube in place with bile drainage. MUSCULOSKELETAL: Extremities with trace lower extremity peripheral edema. No obvious deformities. 1+ edema right upper extremity NEUROLOGICAL: Cranial nerves II through XII grossly intact. Strength is equal symmetric. Normal sensation Urinary Catheter: No Assessment to: Continue Vascular Central Line Catheter: No Assessment to: Continue Date of Insertion: Jun 24, 2017 Date of Removal: Jul 09, 2017 Line: Central Venous Catheter Side: Right Location: Subclavian A/P Assessment and Plan Neuro/Psych: Metabolic encephalopathy UDS positive for barbiturates Depression/anxiety Seizure questionable Currently acetaminophen 650 mg every 6 hours as needed fever CT brain 06/24 revealed no acute intracranial findings EEG 06/25 revealed right frontal lobe sharp activity indicative of epileptiform. Loaded with levetiracetam 1 g IV 1 on 06/26 followed by 500 mg IV twice daily. Repeat EEG 06/26 revealed continuous sharps in right frontal region, Repeat EEG 06/28- no epileptiform activity Neurology- Dr. Shannon following 06/27 MRI brain-no acute intracranial abnormality On fosphenytoin 150 mg every 8 hours and levetiracetam 500 IV twice daily per Neuro, follow phenytoin level Repeat level in a.m. 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 Decreased LV systolic function. Bilateral atrial enlargement. Moderate to Severe MR and TR. Cardiology is following, EPS consult secondary to tachybradycardia syndrome-no intervention at this time 05/[address] surgery consulted to evaluate severe MR- Dr. Paul following-no intervention at this time 05/29 clinical status, but once clinically improved will reevaluate for surgery Lactate is cleared 06/26 Labetalol PRN for SBP > 165 Currently furosemide 20 mg IV twice daily. Will change to daily with decreased oral intake Resp: Acute respiratory failure Intubated 06/24, extubated and reintubated on 07/06 Stridor Right lower lobe infiltrate/pleural effusion Nasal cannula to maintain saturation greater than equal to 92% Incentive spirometry while awake Completed Solumedrol 40mg Q6 for stridor. Given Decadron 10 mg IV 1 07/08 Previous extubation failure most likely from stridor but severe MR might also significantly contributing Follow chest x-ray in a.m. GI: Cholelithiasis on ultrasound 06/23 possibly acute cholecystitis Hypoalbuminemia Gastroesophageal reflux disease Elevated transaminases CT abdomen/pelvis 06/23 revealed a 1 mm gallstone. No signs of cholecystitis. Otherwise unremarkable CT abdomen/pelvis 06/24 revealed right > left pleural effusions. Gallbladder wall thickening with voracious dye excretion, descending colon edema and bilateral perinephric stranding Status post cholecystostomy tube by IR 06/24- monitor output, fluid cx: no growth General surgery recommended continue cholecystostomy tube placement. Outpatient follow-up for cholecystectomy. on pantoprazole 40 mg IV. daily for gastroesophageal reflux disease Docusate sodium/senna 1 tablet twice daily for bowel regimen GI Dr. Naqvi - S/P colonoscopy and endoscopy 06/30, upper endoscopy revealed medium-sized ulcer first part of duodenum, multiple small erosions gastric antrum. Colon- Normal mucosa Failed swallowing evaluation we will Place Keofeed tube for nutrition/ medications and restart t vital 1.5 at 50 cc an hour Renal/FEN/: Acute kidney injury Hypercalcemia Hypokalemia Monitor renal function, electrolytes replacement per protocol. 40 mEq KCl by tube 1 now 30 mg IV 1 now. Recheck in a.m. We will start tube feeding once NG tube placed Endo: Sliding-scale insulin Novulin R with Accu-Cheks every 4 hours to maintain euglycemia/low regimen TSH -1.76 Heme: Microcytic hypochromic anemia Monitor CBC daily. Follow trend ID: Sepsis likely acute cholecystitis Strep pneumo bacteremia -source gallbladder Patient has been on Pipracil/tazobactam since 06/24 and Vanco since 06/30- All previous cultures negative. C-diff PCR negative on 07/06 07/07 blood culture revealed strep pneumo bacteremia. Repeat 07/09 no growth Currently on c ampicillin/sulbactam and micafungin. Vancomycin DC'd 07/07 by ID 06/25 Urine Legionella pneumococcal antigens no growth Influenza negative Pertinent cultures 07/09: Blood cultures 2 no growth 07/07 -blood culture -strep pneumo 06/25 -bile -no growth 06/25 -sputum -no growth 06/24 -blood cultures 4 -no growth 06/24 -urine -p no growth MSK: PT evaluate and treat Daily functional maintenance Multi-Podus boots bilaterally Prophylaxis -GI -pantoprazole -DVT -SCDs, changed to enoxaparin 80mg daily given worsening renal function. Level 3 Guillermo Pratt MD Jul 11, 2017 09:43
[2017-07-11] MEDS: METOPROLOL TARTRATE 50 MG TAB PO SCH ×2 (09:44→20:37)
[2017-07-11] MEDS: AMIODARONE 200 MG TAB PO SCH (09:44)
[2017-07-11] MEDS ORDERED: GLYCERIN ADULT 2 GM SUPP RECTAL ONE (09:45)
[2017-07-11] MEDS ORDERED: METHYLNALTREXONE BROMIDE 12 MG/0.6 ML VIAL SQ ONE (09:45)
[2017-07-11] MEDS: NYSTATIN SUSP 500,000 U/5 ML CUP SWISH-SWAL SCH ×4 (09:46→20:36)
[2017-07-11] MEDS: DOCUSATE SODIUM 50 MG/SENNA 8.6 MG TAB PO SCH ×2 (09:47→20:37)
[2017-07-11] MEDS: ENOXAPARIN SODIUM 80 MG/0.8 ML SYRINGE SQ SCH (09:51)
[2017-07-11] MEDS: levETIRAcetam INJ 500 MG in SODIUM CHLORIDE 0.9% INJ 100 ML IV SCH ×2 (09:53→20:37)
[2017-07-11] MEDS ORDERED: AMIODARONE INJ 450 MG in DEXTROSE 5% IN WATE(EXCEL) INJ 241 ML IV PRN ×2 (10:05)
[2017-07-11] MEDS: AMIODARONE INJ 450 MG in SODIUM CHLOR 0.9% (EXCEL) INJ 241 ML IV PRN ×2 (10:27→20:36)
--- NOTE | 2017-07-11 12:19 | HHI.IDPN ---
Note Infectious Disease Note ID coverage. Notes reviewed. is a 57-year-old with PMHx of COPD, GERD, hypertension, cardiovascular problems that presented to the hospital on 06/23/2017 for complaints of epigastric and abdominal pain, nausea vomiting, shortness of breath. ID following for leucocytosis, acute cholecystitis and pneumonia. Seizure new onset. Patient remains on room air. She is awake and answer simple questions. Says she feels okay. Still very little verbal communication. No distress. Low-grade fever Repeat blood culture on 07/09 - 1 bottle as coag negative staph Previous blood culture on 07/07 had strep species in 1 of 4 bottles. Antibiotics Unasyn Fluconazole Lines Peripheral line site with no e.o infection Past Medical History reviewed Allergies: Coded Allergies: Sulfa (Sulfonamide Antibiotics) (Verified Allergy, Unknown, 06/23/17) ciprofloxacin (Verified Allergy, Unknown, 06/23/17) hydromorphone (Verified Allergy, Unknown, 06/23/17) Current Medications Medications (Trade) Dose Ordered Sig/Salud Route PRN Reason Start Time Stop Time Status Last Admin Dose Admin Naloxone HCl (Narcan Inj) 0.4 mg UNSCH PRN IV PUSH SEE LABEL COMMENTS 06/23/17 20:30 Sodium Phosphate 30 mmol/Sodium Chloride 250 ml @ 42 mls/hr UNSCH PRN IV For Phosphorus < 2.5 mg/dL 06/24/17 17:00 Potassium Phosphate 30 mmol/ Sodium Chloride 260 ml @ 42 mls/hr UNSCH PRN IV SEE LABEL COMMENTS 06/24/17 17:00 07/11/17 10:32 Dextrose (D50w (Vial) Inj) 50 ml UNSCH PRN IV PUSH HYPOGLYCEMIA-SEE COMMENTS 06/24/17 17:00 07/09/17 15:53 Glucagon (Glucagon Inj) 1 mg UNSCH PRN OTHER HYPOGLYCEMIA-SEE COMMENTS 06/24/17 17:00 Sodium Chloride (NS Flush) 2 ml UNSCH PRN IV FLUSH FLUSH AFTER USING IV ACCESS 06/24/17 17:00 07/08/17 16:58 Sodium Chloride (NS Flush) 2 ml BID IV FLUSH 06/24/17 21:00 07/11/17 09:00 Ondansetron HCl (Zofran Inj) 4 mg Q6H PRN IV PUSH NAUSEA OR VOMITING 06/24/17 17:00 07/05/17 17:24 Albuterol Sulfate (Albuterol Neb) 2.5 mg Q2HR NEB PRN INH SOB/WHEEZING 06/24/17 17:00 07/07/17 20:49 Miscellaneous Information 1 Q361D XX 06/24/17 18:00 Chlorhexidine Gluconate (Chlorhexidine 2% Cloth) Taper DAILY@04 TOP 06/25/17 04:00 06/21/18 03:59 07/11/17 03:07 Chlorhexidine Gluconate (Chlorhexidine 2% Cloth) 3 pack UNSCH PRN TOP HYGIENIC CARE 06/24/17 17:00 Senna/Docusate Sodium (Keiry-Colace) 1 tab BID PO 06/24/17 21:00 07/11/17 09:47 Sennosides (Senokot) 17.2 mg Q12H PRN PO Moderate constipation 06/24/17 17:00 Bisacodyl (Dulcolax Supp) 10 mg DAILY PRN RECTAL SEVERE CONSITIPATION 06/24/17 17:00 Lactulose (Lactulose Liq) 30 ml DAILY PRN PO SEVERE CONSITIPATION 06/24/17 17:00 07/10/17 17:27 Chlorhexidine Gluconate (Peridex 0.12% Liq) 15 ml BID@08,20 MT 06/24/17 20:00 07/11/17 08:00 Terbutaline Sulfate (Brethine Inj) 1 mg UNSCH PRN SQ For Extravasation 06/24/17 19:30 Artificial Tears (Tears Naturale Opth Soln) 1 drop Q8HR EACH EYE 06/24/17 22:00 07/11/17 05:01 Insulin Human Regular (NovoLIN R SUPPLEMENTAL SCALE) 1 Q4HR SQ 06/24/17 20:00 07/05/17 16:00 Pantoprazole Sodium (Protonix Inj) 40 mg Q24H IV PUSH 06/24/17 20:00 07/10/17 22:05 Acetaminophen (Tylenol 650 Mg/ 20 ml Liq) 650 mg Q6H PRN NG fever 06/25/17 08:45 07/06/17 19:52 Levetriacetam 500 mg/Sodium Chloride 105 ml @ 420 mls/hr Q12HR IV 06/26/17 21:00 07/11/17 09:53 Amiodarone HCl (Cordarone) 200 mg Q12HR PO 06/29/17 16:00 Future Hold 07/11/17 09:44 Metoprolol Tartrate (Lopressor Inj) 2.5 mg Q6H PRN IV PUSH RAPID HEART RATE 06/30/17 09:45 07/11/17 05:01 Labetalol HCl (Trandate Inj) 10 mg Q4H PRN IV PUSH SBP>160, DBP>90 07/02/17 16:45 07/06/17 04:35 Nystatin (Mycostatin Liq) 5 ml QID SWISH-SWAL 07/04/17 09:00 07/18/17 09:00 07/11/17 09:46 Metoprolol Tartrate (Lopressor) 50 mg Q12HR PO 07/06/17 13:00 07/11/17 09:44 Diltiazem HCl 125 mg/Sodium Chloride 125 ml @ 5 mls/hr TITRATE PRN IV Tachycardia 07/06/17 21:30 07/07/17 00:10 Enoxaparin Sodium (Lovenox Inj) 80 mg DAILY SQ 07/08/17 09:00 07/11/17 09:51 Racepinephrine (Racepinephrine 2.25% Neb) 0.5 ml Q3HR NEB PRN NEB stridor 07/08/17 12:30 07/09/17 10:43 Fosphenytoin Sodium (Cerebyx Inj) 150 mgpe Q8HR IV 07/08/17 14:00 07/11/17 05:01 Fluconazole (Diflucan) 100 mg DAILY PO 07/10/17 09:00 07/10/17 17:26 Ampicillin Sodium/ Sulbactam Sodium 3 gm/Sodium Chloride 100 ml @ 200 mls/hr Q6H IV 07/10/17 14:00 07/11/17 09:47 Albuterol/ Ipratropium (Duoneb Neb) 1 ampule Q4HR NEB NEB 07/10/17 16:00 07/11/17 08:23 Furosemide (Lasix Inj) 20 mg DAILY IV PUSH 07/12/17 09:00 Amiodarone HCl 450 mg/Sodium Chloride 250 ml @ 33.33 mls/ hr Q7H31M PRN IV Per Protocol 07/11/17 10:15 07/11/17 10:27 Objective Vital Signs Date Time Temp Pulse Resp B/P (MAP) Pulse Ox O2 Delivery O2 Flow Rate FiO2 07/11/17 10:27 160 126/85 07/11/17 08:23 98 07/11/17 06:00 114 07/11/17 04:00 98.8 115 27 154/71 (98) 98 07/11/17 04:00 115 07/11/17 02:00 117 07/11/17 00:00 100.0 116 27 130/75 (93) 99 07/11/17 00:00 116 07/10/17 22:00 119 07/10/17 20:00 99.6 126 31 150/97 (114) 95 07/10/17 20:00 126 07/10/17 19:23 100 07/10/17 18:00 134 07/10/17 17:00 142 07/10/17 16:00 98.6 07/10/17 16:00 121 07/10/17 16:00 98.6 121 24 164/112 (129) 100 07/10/17 14:00 128 Laboratory Tests Test 07/10/17 09:25 White Blood Count 8.1 TH/MM3 Red Blood Count 4.70 MIL/MM3 Hemoglobin 10.3 GM/DL Hematocrit 33.7 % Mean Corpuscular Volume 71.7 FL Mean Corpuscular Hemoglobin 21.9 PG Mean Corpuscular Hemoglobin Concent 30.6 % Red Cell Distribution Width 22.5 % Platelet Count 376 TH/MM3 Mean Platelet Volume 8.5 FL Neutrophils (%) (Auto) 80.7 % Lymphocytes (%) (Auto) 10.1 % Monocytes (%) (Auto) 6.4 % Eosinophils (%) (Auto) 1.8 % Basophils (%) (Auto) 1.0 % Neutrophils # (Auto) 6.6 TH/MM3 Lymphocytes # (Auto) 0.8 TH/MM3 Monocytes # (Auto) 0.5 TH/MM3 Eosinophils # (Auto) 0.1 TH/MM3 Basophils # (Auto) 0.1 TH/MM3 CBC Comment DIFF FINAL Differential Comment Laboratory Tests Test 07/10/17 09:25 Blood Urea Nitrogen 41 MG/DL Creatinine 1.05 MG/DL Random Glucose 115 MG/DL Total Protein 10.3 GM/DL Albumin 4.8 GM/DL Calcium Level 11.8 MG/DL Magnesium Level 2.1 MG/DL Alkaline Phosphatase 305 U/L Aspartate Amino Transf (AST/SGOT) 55 U/L Alanine Aminotransferase (ALT/SGPT) 62 U/L Total Bilirubin 1.0 MG/DL Sodium Level 139 MEQ/L Potassium Level 3.3 MEQ/L Chloride Level 101 MEQ/L Carbon Dioxide Level 24.6 MEQ/L Anion Gap 13 MEQ/L Estimat Glomerular Filtration Rate 54 ML/MIN Protein Corrected Calcium 9.9 MG/DL Microbiology Date/Time Source Procedure Growth Status 07/09/17 17:42 Blood Peripheral Aerobic Blood Culture - Preliminary Staph Sp Coagulase Negative Resulted 07/09/17 17:42 Blood Peripheral Anaerobic Blood Culture - Preliminary NO GROWTH IN 2 DAYS Resulted 07/09/17 14:30 Blood Peripheral Aerobic Blood Culture - Preliminary NO GROWTH IN 2 DAYS Resulted 07/09/17 14:30 Blood Peripheral Anaerobic Blood Culture - Preliminary NO GROWTH IN 2 DAYS Resulted Imaging reviewed Chest X-Ray 07/11/17 0600 Signed Impressions: Service Date/Time: Tuesday, July 11, 2017 04:27 - CONCLUSION: Stable chest. Augustus Garcia MD Chest X-Ray 07/10/17 0600 Signed Impressions: Service Date/Time: Monday, July 10, 2017 04:00 - CONCLUSION: 1. Linear atelectatic changes in the left lower lobe/lingular region. Lungs are otherwise clear. 2. Interval removal of the endotracheal and nasogastric tubes. Augustus Garcia MD Chest X-Ray 07/10/17 0600 Signed Impressions: Service Date/Time: Monday, July 10, 2017 04:00 - CONCLUSION: 1. Linear atelectatic changes in the left lower lobe/lingular region. Lungs are otherwise clear. 2. Interval removal of the endotracheal and nasogastric tubes. Augustus Garcia MD Chest CT 07/07/17 0000 Signed Impressions: Service Date/Time: Friday, July 07, 2017 10:35 - CONCLUSION: 1. Interval resolution of bilateral pleural effusions with improved airspace disease in the lower lobes in comparison to 06/24/2017. 2. Very subtle anterior pericardial effusion. Akira Cullen MD Abdomen/Pelvis CT 07/07/17 0000 Signed Impressions: Service Date/Time: Friday, July 07, 2017 10:35 - CONCLUSION: 1. No loculated fluid collections within the abdomen and pelvis to suggest abscess. Drainage catheter remains in right upper quadrant. 2. Improved basilar airspace consolidation in the lungs since June 24. 3. NG coiled in stomach. Ferguson catheter in decompressed bladder. No bowel obstruction, free fluid or free air. Leandro Palacios MD Chest X-Ray 07/06/17 0600 Signed Impressions: Service Date/Time: Thursday, July 06, 2017 03:59 - CONCLUSION: Resolution of the right lower lobe infiltrate. More focal consolidation now seen involving the left lower lobe. Floyd Tiwari Jr., MD Brain MRI 06/27/17 0000 Signed Impressions: Service Date/Time: Tuesday, June 27, 2017 10:00 - CONCLUSION: 1. No acute intracranial abnormality. 2. Mild chronic small vessel ischemic change. Floyd Tiwari Jr., MD Head CT 06/24/17 1645 Signed Impressions: Service Date/Time: Saturday, June 24, 2017 18:00 - CONCLUSION: No acute disease. Brian Burnett MD Percutaneous Cholangiogram 06/24/17 0000 Signed Impressions: Service Date/Time: Saturday, June 24, 2017 20:36 - CONCLUSION: Uncomplicated percutaneous cholecystostomy as above. Lalo Wong MD Physical Exam GENERAL: Patient is awake and alert. No distress.. SKIN: No rash. The skin is warm and moist. HEENT: Appears reactive to light. Extraocular movements grossly intact. Mild scleral icterus. Oral thrush. NECK: Trachea midline. Supple. CARDIOVASCULAR: Normal S1 and S2. No audible murmur. RESPIRATORY: Clear to auscultation. GASTROINTESTINAL: Abdomen soft, nondistended. Cholecystostomy tube in place RUQ. No RUQ tenderness. MUSCULOSKELETAL: Extremities without clubbing, cyanosis, trace edema. NEUROLOGICAL: Awake and alert. PSYCH: Calm and cooperative. Assessment & Plan Remarks Severe Sepsis present on admission Pneumonia ? HCAP vs aspiration in health care setting. Acute cholecystitis s/p cholecystostomy tube placement. Seizure new onset ? alcohol related. Fevers: ? drug fever ? Vanco IV vs new infection. Normal WBC at time of initial consult. Acute resp failure. Post ventilator. Extubated. Acute metabolic encephalopathy: sepsis, seizures, metabolic. Acute renal failure: ? lasix, prerenal. Recs Continue Unasyn. The strep likely originated from the gallbladder. Follow the identity of the strep organism. Continue Diflucan for oral thrush. Need to [facility] surgery team about Abx duration from there standpoint. Follow cultures Follow clinical status. Trenton Gómez MD Jul 11, 2017 12:19
[2017-07-11 13:41] LABS: BASOPHIL # 0.1 TH/MM3 (0-0.2); BASOPHIL % 0.7 % (0.0-2.0); EOSINOPHIL % 0.4 % (0.0-4.0); HEMATOCRIT 32.9 % (35.0-46.0); HEMOGLOBIN 10.2 GM/DL (11.6-15.3); LYMPH % 12.9 % (9.0-44.0); LYMPHOCYTE # 1.4 TH/MM3 (1.0-4.8); MEAN CELL VOLUME 72.7 FL (80.0-100.0); MEAN CORPUSCULAR HEMOGLOBIN 22.4 PG (27.0-34.0); MEAN CORPUSCULAR HGB CONC 30.9 % (32.0-36.0); MEAN PLATELET VOLUME 8.6 FL (7.0-11.0); MONO % 11.6 % (0.0-8.0); MONOCYTE # 1.3 TH/MM3 (0-0.9); NEUT % 74.4 % (16.0-70.0); PLATELET COUNT 365 TH/MM3 (150-450); RED BLOOD COUNT 4.53 MIL/MM3 (4.00-5.30); RED CELL DISTRIBUTION WIDTH 22.5 % (11.6-17.2); WHITE BLOOD COUNT 10.8 TH/MM3 (4.0-11.0)
[2017-07-11 14:21] LABS: ALBUMIN 3.8 GM/DL (3.4-5.0); ALKALINE PHOSPHATASE 266 U/L (45-117); ALT (GPT) 55 U/L (10-53); AST (GOT) 45 U/L (15-37); BLOOD UREA NITROGEN 37 MG/DL (7-18); CALCIUM 10.5 MG/DL (8.5-10.1); CHLORIDE 107 MEQ/L (98-107); CREATININE 0.96 MG/DL (0.50-1.00); GLOMERULAR FILTRATION RATE 59 ML/MIN (>89); GLUCOSE,RANDOM 103 MG/DL (74-106); MAGNESIUM 2.2 MG/DL (1.5-2.5); PHENYTOIN (DILANTIN) 8.3 MCG/ML (10.0-20.0); PHOSPHORUS 4.1 MG/DL (2.5-4.9); SODIUM (NA) 142 MEQ/L (136-145); TOTAL BILIRUBIN ADULT 0.9 MG/DL (0.2-1.0); TOTAL PROTEIN 9.1 GM/DL (6.4-8.2)
[2017-07-11] MEDS ORDERED: CALCITONIN SALMON INJ 400 UNITS/2 ML VIAL SQ ONE (17:00)
[2017-07-11] MEDS: PANTOPRAZOLE SODIUM 40 MG VIAL IV PUSH SCH (20:37)
[2017-07-12] VITALS (20 sets, daily range): BP systolic 132–181; BP diastolic 66–95; PULSE 100–130; RESP 17–29; TEMP 97.9–99.8; O2SAT 95–100
[2017-07-12] MEDS: AMPICILLIN-SULBACTAM INJ 3 GM in SODIUM CHLORIDE 0.9% INJ 100 ML IV SCH ×4 (02:09→20:46)
[2017-07-12] MEDS: INSULIN NovoLIN REGULAR SUPPLEMENTAL SCALE SQ SCH ×6 (03:14→21:00)
[2017-07-12] MEDS: RESP: ALBUTEROL 2.5 MG/IPRATROPIUM 0.5 MG NEB (SCH) NEB ×6 (04:10→23:30)
[2017-07-12] MEDS: FOSPHENYTOIN SODIUM 100 MG PE/2 ML VIAL IV SCH ×3 (05:20→20:46)
[2017-07-12] MEDS: ARTIFICIAL TEARS OPTH SOLN 15 ML BTL EACH EYE SCH (05:20)
[2017-07-12] MEDS: CHLORHEXIDINE 0.12% (ORAL KIT) 15 ML CUP MT SCH ×2 (08:00→20:00)
[2017-07-12] MEDS: FLUCONAZOLE 100 MG TAB PO SCH (08:13)
[2017-07-12] MEDS: NYSTATIN SUSP 500,000 U/5 ML CUP SWISH-SWAL SCH ×4 (08:14→20:46)
[2017-07-12] MEDS: DOCUSATE SODIUM 50 MG/SENNA 8.6 MG TAB PO SCH ×2 (08:14→20:47)
[2017-07-12] MEDS: FUROSEMIDE 20 MG/2 ML VIAL IV PUSH SCH (08:14)
[2017-07-12] MEDS: ENOXAPARIN SODIUM 80 MG/0.8 ML SYRINGE SQ SCH ×2 (08:14→20:47)
[2017-07-12] MEDS: METOPROLOL TARTRATE 50 MG TAB PO SCH ×3 (08:14→18:48)
[2017-07-12] MEDS: levETIRAcetam INJ 500 MG in SODIUM CHLORIDE 0.9% INJ 100 ML IV SCH (08:15)
[2017-07-12] MEDS: SODIUM CHLORIDE 0.9% FLUSH 10 ML FLUSH IV FLUSH SCH ×2 (08:15→20:47)
[2017-07-12] MEDS: AMIODARONE INJ 450 MG in SODIUM CHLOR 0.9% (EXCEL) INJ 241 ML IV PRN (11:12)
[2017-07-12] MEDS ORDERED: DIGOXIN 0.5 MG/2 ML VIAL IV PUSH ONE (11:45)
--- NOTE | 2017-07-12 12:24 | HHI.CCPN ---
Subjective Remarks/Hospital Course 57-year-old female. Date of admission 06/23/2017. Date of consultation 2017. Past medical history includes Patient originally presented to [facility] ED in atrial fibrillation with rapid ventricular response. Patient was initially started on a diltiazem drip and then was switched over to metoprolol tartrate 50 mg every 8 hours. After conversion, patient became bradycardic. CT abdomen/pelvis revealed a 1 mm gallstone without signs of cholecystitis. Otherwise unremarkable. The patient became more somnolent on the floor and bradycardic with heart rates as low as 42. EKG revealed sinus bradycardia with a first-degree AV block. Patient was arousable and with good pain in 1-2 word responses but fell asleep immediately. On examination patient did have pain especially in her right upper quadrant. CBC revealed hemoglobin 8.4. Ammonia level 35. BNP of 341. Remainder of laboratories are currently pending. Chest x-ray revealed right lower lobe infiltrate versus effusion. Patient did receive 60 mg total of furosemide within the past 24 hours. 3: Afebrile. Status post percutaneous cholecystostomy tube yesterday with aggressive crystalloid resuscitation. Currently resting in bed in no acute distress. Not on vasopressors. 32: Afebrile. A. fib with RVR overnight started on amiodarone drip. Digoxin 0.25 mg and diltiazem 10 mg given prior to initiation of amiodarone. Remains sedated on the ventilator. Possible seizure activity on EEG. Neurology is been counseled.. EPS cardiology and cardiothoracic surgery also been consulted for tachybradycardia syndrome and severe MR. Dr. Sterling/neurosurgeon is clear to trickle feeds today 33: Afebrile. EEG revealed continuous sharp spikes involving right frontal central region. Remains on levetiracetam at 500 mg every 12 hours. Noted possible switch to fosphenytoin per EEG report. Currently on propofol drip at 30 mcg/kg/min. Withdraws bilateral lower exams. Does not withdraw upper extremities currently. MRI brain currently pending. Tolerating trickle feeds at 10 cc an hour. 3: Repeat EEG pending today. Fosphenytoin added to medication regimen yesterday.No change in neurological assessment. Trickle feeds increased to 20 cc/hour with minimal residuals. 06/29: EEG repeated only showed slow waves possibly medication contributory. Patient previously on anticoagulation prior to admission and her to A. fib RVR, but due to concern for indeterminate source of anemia, GI consulted for recommendations and evaluation of risks/ benefits to initiate anticoagulation therapy. Patient continued to have pleural effusions Lasix IV dose 40 mg given. 06/30: Tolerated CPAP trials 2 hours, continues to be nonresponsive. Patient underwent EGD and colonoscopy colonoscopy was within normal limits. EGD revealed small erosions in the first part of the duodenum and a medium-sized ulcer. Recommended per GI to initiate/ resume anticoagulant therapy. Plan for every 12 hours H&H. 07/01: Patient remained on CPAP trials for approximately 2 hours. Patient remains encephalopathic off sedation. Noted hemoglobin drop will continue to closely monitor as therapeutic anticoagulation was initiated yesterday. 07/02: Hemoglobin stable. Patient continues on CPAP with light sedation. With sedation vacation the patient still is not responding to commands, not tracking. EEG shows no epileptiform activity. Patient will require tracheostomy and PEG placement consideration in the near future .Palliative care has been consulted. 07/03: Afebrile. Sedation has been completely discontinued, patient's opens eyes spontaneously movement of lower extremities to pain,but not on command. Patient continues on CPAP for greater than 24 hours. Plan discussion of to define goals of care with family per palliative care team. ET . 07/04: Tmax 100.0. The patient is now tracking visually, and following some commands ,sedation discontinued greater than 48 hours. Noted chest x-ray improvement. Continues on CPAP Extensive discussion with son this a.m. via telephone( Kenneth Walker), patient would not desire a tracheostomy, long-term mechanical ventilation or PEG. Tentative plan for Thursday for patient's 4 children to meet with palliative care to define goals of care. Discussion regarding blood products, patient is to receive blood products if needed. Per patient's family the patient attends a " [employer]" [employer], but is not a baptized Jehov[employer] witness, and continue transfusion of blood products if needed. 07/05: Hemoglobin remained stable. Patient awake and alert responding with yes and no questions. Following commands. Plan for trial of extubation in a.m., after discussion /(with family and palliative care team. Potassium level 3.2., Repletion KCL with 80 meq this a.m.. 07/06 Patient remains on CPAP PS 10, PEEP:5 with FIO2 305. Awake, tolerating tube feeds. Afebrile. 07/07 Patient was extubated yesterday morning however she was reintubated approx 1700 for resp failure and noted to have stridor, she was placed on Cardizem drip overnight 10mg/hr for Afib RVR, sedated with Diprivan and Fentanyl drip. T; 101.0 last night 07/08: Remains intubated heavily sedated. Appears to be breathing comfortably. Remains in atrial fibrillation but rate controlled. No fever. Cultures so far have been negative. Failed extubation last time due to stridor. Check cuff leak and start CPAP trials if tolerated. Given Decadron 10 mg IV 1, Lasix 60 mg IV 1 due to fluid overload 07/09: Patient remains intubated sedated with propofol and fentanyl. Urine output improved with Lasix 2.7 L in 24 hours. There was no cuff leak when checked yesterday, but patient has just 8.0 tube. Attempt CPAP trial again with parameters, ABG. Mitral regurgitation could be problematic with extubation if severe 07/10: Resting comfortably in bed in no acute distress. Failed swallow evaluation seen. Replacing potassium today. Continues to be encephalopathic 07/11: T-max 100. Currently afebrile currently in A. fib with RVR. Remains confused. Tolerated cardiac meds by mouth overnight. Will attempt to place another small bore NG tube today. Subjective 07/12: Remains in A. fib with RVR despite amiodarone drip. Currently on heart healthy diet/pured with honey thickened liquids. No bowel movement. Objective Vital Signs Date Time Temp Pulse Resp B/P (MAP) Pulse Ox O2 Delivery O2 Flow Rate FiO2 07/12/17 11:12 104 181/95 07/12/17 10:00 22 97 07/12/17 08:00 97.9 07/11/17 20:45 21 07/09/17 10:39 Nasal Cannula 4 Intake and Output 07/12/17 07/12/17 07/13/17 08:00 16:00 00:00 Intake Total 440 ml Output Total 400 ml Balance 40 ml Result Diagram: 07/11/17 1315 07/11/17 1315 Other Results Microbiology Date/Time Source Procedure Growth Status 07/09/17 17:42 Blood Peripheral Aerobic Blood Culture - Preliminary Staph Sp Coagulase Negative Resulted 07/09/17 17:42 Blood Peripheral Anaerobic Blood Culture - Preliminary NO GROWTH IN 3 DAYS Resulted 06/25/17 08:00 Fluid Bile Fluid Gram Stain - Final Complete 06/25/17 08:00 Fluid Bile Fluid Body Fluid Culture - Final NO GROWTH IN 72 HRS.--AEROBICALLY OR ... Complete 07/06/17 21:22 Sputum Endotracheal Gram Stain - Final Complete 07/06/17 21:22 Sputum Endotracheal Sputum Culture - Final LIGHT GROWTH NORMAL RESPIRATORY DELIO Complete 07/07/17 09:25 Urine Catheterized Urine Urine Culture - Final NO GROWTH IN 48 HOURS. Complete Imaging Last Impressions Chest X-Ray 07/11/17 0600 Signed Impressions: Service Date/Time: Tuesday, July 11, 2017 04:27 - CONCLUSION: Stable chest. Augustus Garcia MD Chest CT 07/07/17 0000 Signed Impressions: Service Date/Time: Friday, July 07, 2017 10:35 - CONCLUSION: 1. Interval resolution of bilateral pleural effusions with improved airspace disease in the lower lobes in comparison to 06/24/2017. 2. Very subtle anterior pericardial effusion. Akira Cullen MD Abdomen/Pelvis CT 07/07/17 0000 Signed Impressions: Service Date/Time: Friday, July 07, 2017 10:35 - CONCLUSION: 1. No loculated fluid collections within the abdomen and pelvis to suggest abscess. Drainage catheter remains in right upper quadrant. 2. Improved basilar airspace consolidation in the lungs since June 24. 3. NG coiled in stomach. Ferguson catheter in decompressed bladder. No bowel obstruction, free fluid or free air. Leandro Palacios MD Brain MRI 06/27/17 0000 Signed Impressions: Service Date/Time: Tuesday, June 27, 2017 10:00 - CONCLUSION: 1. No acute intracranial abnormality. 2. Mild chronic small vessel ischemic change. Floyd Tiwari Jr., MD Head CT 06/24/17 1645 Signed Impressions: Service Date/Time: Saturday, June 24, 2017 18:00 - CONCLUSION: No acute disease. Brian Burnett MD Percutaneous Cholangiogram 06/24/17 0000 Signed Impressions: Service Date/Time: Saturday, June 24, 2017 20:36 - CONCLUSION: Uncomplicated percutaneous cholecystostomy as above. Lalo Wong MD Objective Remarks GENERAL: 57-year-old female currently resting in bed on room air in no acute distress SKIN: Warm and dry. No rash. Well perfused HEAD: Atraumatic. Normocephalic. EYES: Pupils equal and round about 2 mm bilaterally and brisk. No scleral icterus. No injection or drainage. ENT: No nasal bleeding or discharge. Orotracheally intubated NECK: Trachea midline. No JVD. CARDIOVASCULAR: Tachycardia, IR. S1, S2 no S4. RESPIRATORY: Air entry diminished at the bases. No wheezing GASTROINTESTINAL: Abdomen soft, tender to palpation in the right upper quadrant and epigastric region. Cholecystostomy tube in place with bile drainage. MUSCULOSKELETAL: Extremities with trace lower extremity peripheral edema. No obvious deformities. 1+ edema right upper extremity NEUROLOGICAL: Cranial nerves II through XII grossly intact. Strength is equal symmetric. Normal sensation Urinary Catheter: No Assessment to: Continue Vascular Central Line Catheter: No Assessment to: Continue Date of Insertion: Jun 24, 2017 Date of Removal: Jul 09, 2017 Line: Central Venous Catheter Side: Right Location: Subclavian A/P Assessment and Plan Neuro/Psych: Metabolic encephalopathy UDS positive for barbiturates Depression/anxiety Seizure questionable Currently acetaminophen 650 mg every 6 hours as needed fever CT brain 06/24 revealed no acute intracranial findings EEG 06/25 revealed right frontal lobe sharp activity indicative of epileptiform. Loaded with levetiracetam 1 g IV 1 on 06/26 followed by 500 mg IV twice daily. Repeat EEG 06/26 revealed continuous sharps in right frontal region, Repeat EEG 06/28- no epileptiform activity Neurology- Dr. Shannon following 06/27 MRI brain-no acute intracranial abnormality On fosphenytoin 150 mg every 8 hours and levetiracetam 500 IV twice daily per Neuro, follow phenytoin level Repeat level in a.m. 07/12 Previously on paroxetine unknown dosage for depression CV: Atrial fibrillation rate controlled History of atrial fibrillation Hypertension Lactic acidosis resolved Moderate to Severe TR/MR Acute diastolic heart failure Tachybradycardia syndrome Currently on amiodarone drip at 0.5 mg/min. Previously on amiodarone 200 mg p.o. twice daily metoprolol 50 mg twice daily will be increased to 4 times daily As needed diltiazem drip One-time dose digoxin 0.25 mg 2D echocardiogram revealed EF 45-50%. Decreased LV systolic function. Bilateral atrial enlargement. Moderate to Severe MR and TR. Cardiology is following, EPS consult secondary to tachybradycardia syndrome-no intervention at this time 05/[address] surgery consulted to evaluate severe MR- Dr. Paul following-no intervention at this time 05/29 clinical status, but once clinically improved will reevaluate for surgery Lactate is cleared 06/26 Labetalol PRN for SBP > 165 Currently furosemide 20 mg IV daily Resp: Acute respiratory failure Intubated 06/24, extubated and reintubated on 07/06 Stridor Right lower lobe infiltrate/pleural effusion Nasal cannula to maintain saturation greater than equal to 92%. Currently in room air Incentive spirometry while awake Completed Solumedrol 40mg Q6 for stridor. Given Decadron 10 mg IV 1 07/08 Previous extubation failure most likely from stridor but severe MR might also significantly contributing Follow chest x-ray in a.m. 07/13 GI: Cholelithiasis on ultrasound 06/23 possibly acute cholecystitis Hypoalbuminemia Gastroesophageal reflux disease Elevated transaminases CT abdomen/pelvis 06/23 revealed a 1 mm gallstone. No signs of cholecystitis. Otherwise unremarkable CT abdomen/pelvis 06/24 revealed right > left pleural effusions. Gallbladder wall thickening with voracious dye excretion, descending colon edema and bilateral perinephric stranding Status post cholecystostomy tube by IR 06/24- monitor output, fluid cx: no growth General surgery recommended continue cholecystostomy tube placement. Outpatient follow-up for cholecystectomy. on pantoprazole 40 mg p.o. daily for gastroesophageal reflux disease Docusate sodium/senna 1 tablet twice daily for bowel regimen. Mineral oil enema 1. Check [facility] GI Dr. Naqvi - S/P colonoscopy and endoscopy 06/30, upper endoscopy revealed medium-sized ulcer first part of duodenum, multiple small erosions gastric antrum. Colon- Normal mucosa Currently in heart healthy diet/pured with honey thickened liquids Renal/FEN/: Acute kidney injury resolving Hypercalcemia Hypokalemia Monitor renal function, electrolytes replacement per protocol. A.m. laboratories pending Endo: Sliding-scale insulin Novulin R with Accu-Cheks before meals/at bedtime to maintain euglycemia/low regimen TSH -1.76 Heme: Microcytic hypochromic anemia Monitor CBC daily. Follow trend ID: Sepsis likely acute cholecystitis Strep pneumo bacteremia -source gallbladder Patient has been on Pipracil/tazobactam since 06/24 and Vanco since 06/30- All previous cultures negative. C-diff PCR negative on 07/06 07/07 blood culture revealed strep pneumo bacteremia. Repeat 07/09 no growth Currently on c ampicillin/sulbactam and micafungin. Vancomycin DC'd 07/07 by ID 06/25 Urine Legionella pneumococcal antigens no growth Influenza negative Pertinent cultures 07/09: Blood cultures 2 coag negative staph 07/07 -blood culture -strep pneumo 06/25 -bile -no growth 06/25 -sputum -no growth 06/24 -blood cultures 4 -no growth 06/24 -urine -no growth MSK: PT evaluate and treat Daily functional maintenance Multi-Podus boots bilaterally Prophylaxis -GI -pantoprazole -DVT -SCDs, changed to enoxaparin 65 mg subcu twice daily Level 2 Guillermo Pratt MD Jul 12, 2017 12:24
[2017-07-12] MEDS ORDERED: MINERAL OIL ENEMA 118 ML BTL RECTAL ONE (12:30)
[2017-07-12] MEDS ORDERED: METHYLNALTREXONE BROMIDE 12 MG/0.6 ML VIAL SQ ONE (12:30)
[2017-07-12 13:13] LABS: HEMATOCRIT 33.8 % (35.0-46.0); MEAN CELL VOLUME 72.7 FL (80.0-100.0); MEAN CORPUSCULAR HEMOGLOBIN 21.6 PG (27.0-34.0); MEAN PLATELET VOLUME 8.3 FL (7.0-11.0); PLATELET COUNT 533 TH/MM3 (150-450); RED BLOOD COUNT 4.65 MIL/MM3 (4.00-5.30); RED CELL DISTRIBUTION WIDTH 22.5 % (11.6-17.2); WHITE BLOOD COUNT 15.9 TH/MM3 (4.0-11.0)
[2017-07-12 13:14] LABS: MEAN CORPUSCULAR HGB CONC 29.7 % (32.0-36.0)
--- NOTE | 2017-07-12 13:22 | RADRPT ---
EXAM DATE/TIME: 07/12/2017 12:26 [facility] COMPARISON: CHEST SINGLE AP, July 11, 2017, 4:27. INDICATIONS : Constipation. MEDICAL HISTORY : None. SURGICAL HISTORY : None. ENCOUNTER: Initial ACUITY: 2 days PAIN SCORE: Non-responsive. LOCATION: Abdomen. FINDINGS: There is only a mild amount of stool within the cecum and descending colon. The remainder the colon i s decompressed. The bowel gas pattern is within normal limits. The osseous structures are intact. There is a small bore drainage catheter on the right presumably within the gallbladder. CONCLUSION: 1. Cholecystostomy tube. 2. There is only minimal stool evident within the cecum and adjacent colon. No definite findings to i ndicate constipation identified. King Contreras MD on July 12, 2017 at 13:19 Board Certified Radiologist. This report was verified electronically.
[2017-07-12 13:34] LABS: PHENYTOIN (DILANTIN) 5.1 MCG/ML (10.0-20.0)
[2017-07-12 13:52] LABS: BICARBONATE 24.5 MEQ/L (21.0-32.0); CALCIUM 10.7 MG/DL (8.5-10.1); CREATININE 0.99 MG/DL (0.50-1.00)
[2017-07-12] MEDS: ACETAMINOPHEN 650 MG/20.3 ML UDC NG PRN (15:40)
[2017-07-12 18:24] LABS: BILIRUBIN, URINE NEG (NEG); BLOOD, URINE NEG (NEG); GLUCOSE,URINE NEG (NEG); KETONE, URINE NEG (NEG); NITRITE,URINE NEG (NEG); PH, URINE 5.5 (5.0-8.5); SQUAMOUS EPITHELIAL CELL URINE <1 /hpf (0-5); URIC ACID CRYSTALS, URINE RARE /hpf; URINE COLOR YELLOW (YELLW/STRAW); URINE LEUKOCYTE ESTERASE NEG (NEG)
[2017-07-12 18:28] LABS: BACTERIA, URINE MOD /hpf
[2017-07-12] MEDS: levETIRAcetam 500 MG TAB PO SCH (20:47)
[2017-07-13] VITALS (15 sets, daily range): BP systolic 134–177; BP diastolic 60–94; PULSE 98–128; RESP 20–30; TEMP 98.4–98.8; O2SAT 70–100
[2017-07-13] MEDS: METOPROLOL TARTRATE 50 MG TAB PO SCH ×5 (01:01→23:06)
[2017-07-13] MEDS: AMPICILLIN-SULBACTAM INJ 3 GM in SODIUM CHLORIDE 0.9% INJ 100 ML IV SCH ×4 (03:31→19:47)
[2017-07-13] MEDS: CHLORHEXIDINE GLUCONATE 2 % 1 PACK (2 CLOTHS) TOP SCH (03:31)
[2017-07-13] MEDS: RESP: ALBUTEROL 2.5 MG/IPRATROPIUM 0.5 MG NEB (SCH) NEB ×6 (03:59→23:52)
[2017-07-13] MEDS: FOSPHENYTOIN SODIUM 100 MG PE/2 ML VIAL IV SCH ×3 (05:20→21:54)
--- NOTE | 2017-07-13 06:53 | RADRPT ---
EXAM DATE/TIME: 07/13/2017 05:28 [facility] COMPARISON: CHEST SINGLE AP, June 30, 2017, 5:14. CHEST SINGLE AP, June 27, 2017, 4:49. CHEST SINGLE AP, Keith 2017, 17:35. CHEST SINGLE AP, July 11, 2017, 4:27. INDICATIONS : Shortness of breath, possible pulmonary disease. MEDICAL HISTORY : None. SURGICAL HISTORY : None. ENCOUNTER: Subsequent ACUITY: 3 weeks PAIN SCORE: Non-responsive. LOCATION: Bilateral chest FINDINGS: A single view of the chest demonstrates the lungs to be symmetrically aerated without evidence of mas s, infiltrate or effusion. Stable linear scarring or atelectasis in the lingula. The cardiomediasti nal contours are unremarkable. Osseous structures are intact. CONCLUSION: Stable lingular scarring or atelectasis. The remainder of the lungs are clear. Floyd Magallanes MD on July 13, 2017 at 6:51 Board Certified Radiologist. This report was verified electronically.
[2017-07-13] MEDS: AMIODARONE INJ 450 MG in SODIUM CHLOR 0.9% (EXCEL) INJ 241 ML IV PRN (06:59)
[2017-07-13 07:59] LABS: AUTOMATED NEUTROPHIL # 10.6 TH/MM3 (1.8-7.7); BASOPHIL % 0.3 % (0.0-2.0); EOSINOPHIL % 0.2 % (0.0-4.0); HEMATOCRIT 31.3 % (35.0-46.0); HEMOGLOBIN 9.4 GM/DL (11.6-15.3); LYMPH % 6.3 % (9.0-44.0); LYMPHOCYTE # 0.8 TH/MM3 (1.0-4.8); MEAN CELL VOLUME 72.4 FL (80.0-100.0); MEAN CORPUSCULAR HEMOGLOBIN 21.6 PG (27.0-34.0); MEAN PLATELET VOLUME 8.2 FL (7.0-11.0); MONO % 7.5 % (0.0-8.0); MONOCYTE # 0.9 TH/MM3 (0-0.9); NEUT % 85.7 % (16.0-70.0); PLATELET COUNT 525 TH/MM3 (150-450); RED BLOOD COUNT 4.33 MIL/MM3 (4.00-5.30); RED CELL DISTRIBUTION WIDTH 22.3 % (11.6-17.2); WHITE BLOOD COUNT 12.4 TH/MM3 (4.0-11.0)
[2017-07-13] MEDS: INSULIN NovoLIN REGULAR SUPPLEMENTAL SCALE SQ SCH ×4 (08:00→19:48)
[2017-07-13 08:01] LABS: MEAN CORPUSCULAR HGB CONC 29.9 % (32.0-36.0)
[2017-07-13 08:44] LABS: ALBUMIN 3.4 GM/DL (3.4-5.0); ALKALINE PHOSPHATASE 256 U/L (45-117); ALT (GPT) 52 U/L (10-53); AST (GOT) 48 U/L (15-37); BICARBONATE 24.3 MEQ/L (21.0-32.0); BLOOD UREA NITROGEN 34 MG/DL (7-18); CALCIUM 10.5 MG/DL (8.5-10.1); CHLORIDE 112 MEQ/L (98-107); CREATININE 0.88 MG/DL (0.50-1.00); GLOMERULAR FILTRATION RATE 66 ML/MIN (>89); GLUCOSE,RANDOM 96 MG/DL (74-106); PHENYTOIN (DILANTIN) 5.6 MCG/ML (10.0-20.0); PHOSPHORUS 3.5 MG/DL (2.5-4.9); SODIUM (NA) 150 MEQ/L (136-145); TOTAL BILIRUBIN ADULT 0.9 MG/DL (0.2-1.0); TOTAL PROTEIN 8.5 GM/DL (6.4-8.2)
[2017-07-13] MEDS: SODIUM CHLORIDE 0.9% FLUSH 10 ML FLUSH IV FLUSH SCH ×2 (09:03→19:48)
[2017-07-13] MEDS: CHLORHEXIDINE 0.12% (ORAL KIT) 15 ML CUP MT SCH ×2 (09:03→19:47)
[2017-07-13] MEDS: FLUCONAZOLE 100 MG TAB PO SCH (09:21)
[2017-07-13] MEDS: DOCUSATE SODIUM 50 MG/SENNA 8.6 MG TAB PO SCH ×2 (09:21→19:48)
[2017-07-13] MEDS: NYSTATIN SUSP 500,000 U/5 ML CUP SWISH-SWAL SCH ×4 (09:21→19:48)
[2017-07-13] MEDS: PANTOPRAZOLE SOD 40 MG DELAYED RELEASE TAB PO SCH (09:21)
[2017-07-13] MEDS: ENOXAPARIN SODIUM 80 MG/0.8 ML SYRINGE SQ SCH ×2 (09:21→19:48)
[2017-07-13] MEDS: levETIRAcetam 500 MG TAB PO SCH ×2 (09:21→19:48)
[2017-07-13] MEDS: FUROSEMIDE 20 MG/2 ML VIAL IV PUSH SCH (09:22)
--- NOTE | 2017-07-13 10:44 | HHI.CCPN ---
Subjective Remarks/Hospital Course 57-year-old female. Date of admission 06/23/2017. Date of consultation 2017. Past medical history includes Patient originally presented to [facility] ED in atrial fibrillation with rapid ventricular response. Patient was initially started on a diltiazem drip and then was switched over to metoprolol tartrate 50 mg every 8 hours. After conversion, patient became bradycardic. CT abdomen/pelvis revealed a 1 mm gallstone without signs of cholecystitis. Otherwise unremarkable. The patient became more somnolent on the floor and bradycardic with heart rates as low as 42. EKG revealed sinus bradycardia with a first-degree AV block. Patient was arousable and with good pain in 1-2 word responses but fell asleep immediately. On examination patient did have pain especially in her right upper quadrant. CBC revealed hemoglobin 8.4. Ammonia level 35. BNP of 341. Remainder of laboratories are currently pending. Chest x-ray revealed right lower lobe infiltrate versus effusion. Patient did receive 60 mg total of furosemide within the past 24 hours. 3: Afebrile. Status post percutaneous cholecystostomy tube yesterday with aggressive crystalloid resuscitation. Currently resting in bed in no acute distress. Not on vasopressors. 32: Afebrile. A. fib with RVR overnight started on amiodarone drip. Digoxin 0.25 mg and diltiazem 10 mg given prior to initiation of amiodarone. Remains sedated on the ventilator. Possible seizure activity on EEG. Neurology is been counseled.. EPS cardiology and cardiothoracic surgery also been consulted for tachybradycardia syndrome and severe MR. Dr. Sterling/neurosurgeon is clear to trickle feeds today 33: Afebrile. EEG revealed continuous sharp spikes involving right frontal central region. Remains on levetiracetam at 500 mg every 12 hours. Noted possible switch to fosphenytoin per EEG report. Currently on propofol drip at 30 mcg/kg/min. Withdraws bilateral lower exams. Does not withdraw upper extremities currently. MRI brain currently pending. Tolerating trickle feeds at 10 cc an hour. 3: Repeat EEG pending today. Fosphenytoin added to medication regimen yesterday.No change in neurological assessment. Trickle feeds increased to 20 cc/hour with minimal residuals. 06/29: EEG repeated only showed slow waves possibly medication contributory. Patient previously on anticoagulation prior to admission and her to A. fib RVR, but due to concern for indeterminate source of anemia, GI consulted for recommendations and evaluation of risks/ benefits to initiate anticoagulation therapy. Patient continued to have pleural effusions Lasix IV dose 40 mg given. 06/30: Tolerated CPAP trials 2 hours, continues to be nonresponsive. Patient underwent EGD and colonoscopy colonoscopy was within normal limits. EGD revealed small erosions in the first part of the duodenum and a medium-sized ulcer. Recommended per GI to initiate/ resume anticoagulant therapy. Plan for every 12 hours H&H. 07/01: Patient remained on CPAP trials for approximately 2 hours. Patient remains encephalopathic off sedation. Noted hemoglobin drop will continue to closely monitor as therapeutic anticoagulation was initiated yesterday. 07/02: Hemoglobin stable. Patient continues on CPAP with light sedation. With sedation vacation the patient still is not responding to commands, not tracking. EEG shows no epileptiform activity. Patient will require tracheostomy and PEG placement consideration in the near future .Palliative care has been consulted. 07/03: Afebrile. Sedation has been completely discontinued, patient's opens eyes spontaneously movement of lower extremities to pain,but not on command. Patient continues on CPAP for greater than 24 hours. Plan discussion of to define goals of care with family per palliative care team. ET . 07/04: Tmax 100.0. The patient is now tracking visually, and following some commands ,sedation discontinued greater than 48 hours. Noted chest x-ray improvement. Continues on CPAP Extensive discussion with son this a.m. via telephone( Kenneth Walker), patient would not desire a tracheostomy, long-term mechanical ventilation or PEG. Tentative plan for Thursday for patient's 4 children to meet with palliative care to define goals of care. Discussion regarding blood products, patient is to receive blood products if needed. Per patient's family the patient attends a " [employer]" t[employer], but is not a baptized Jehov[employer] witness, and continue transfusion of blood products if needed. 07/05: Hemoglobin remained stable. Patient awake and alert responding with yes and no questions. Following commands. Plan for trial of extubation in a.m., after discussion /(with family and palliative care team. Potassium level 3.2., Repletion KCL with 80 meq this a.m.. 07/06 Patient remains on CPAP PS 10, PEEP:5 with FIO2 305. Awake, tolerating tube feeds. Afebrile. 07/07 Patient was extubated yesterday morning however she was reintubated approx 1700 for resp failure and noted to have stridor, she was placed on Cardizem drip overnight 10mg/hr for Afib RVR, sedated with Diprivan and Fentanyl drip. T; 101.0 last night 07/08: Remains intubated heavily sedated. Appears to be breathing comfortably. Remains in atrial fibrillation but rate controlled. No fever. Cultures so far have been negative. Failed extubation last time due to stridor. Check cuff leak and start CPAP trials if tolerated. Given Decadron 10 mg IV 1, Lasix 60 mg IV 1 due to fluid overload 07/09: Patient remains intubated sedated with propofol and fentanyl. Urine output improved with Lasix 2.7 L in 24 hours. There was no cuff leak when checked yesterday, but patient has just 8.0 tube. Attempt CPAP trial again with parameters, ABG. Mitral regurgitation could be problematic with extubation if severe 07/10: Resting comfortably in bed in no acute distress. Failed swallow evaluation seen. Replacing potassium today. Continues to be encephalopathic 07/11: T-max 100. Currently afebrile currently in A. fib with RVR. Remains confused. Tolerated cardiac meds by mouth overnight. Will attempt to place another small bore NG tube today. Subjective 07/12: Remains in A. fib with RVR despite amiodarone drip. Currently on heart healthy diet/pured with honey thickened liquids. No bowel movement. 07/13 Patient remains in Afib with RVR on Amio drip. Afebrile. Objective Vital Signs Date Time Temp Pulse Resp B/P (MAP) Pulse Ox O2 Delivery O2 Flow Rate FiO2 07/13/17 09:43 93 21 07/13/17 08:00 98.4 98 24 134/60 (84) 07/09/17 10:39 Nasal Cannula 4 Intake and Output 07/13/17 07/13/17 07/14/17 08:00 16:00 00:00 Intake Total 810 ml Output Total 470 ml Balance 340 ml Result Diagram: 07/13/17 0647 07/13/17 0647 Other Results Laboratory Tests Test 07/12/17 12:30 07/12/17 16:10 07/13/17 06:47 White Blood Count 15.9 TH/MM3 12.4 TH/MM3 Red Blood Count 4.65 MIL/MM3 4.33 MIL/MM3 Hemoglobin 10.0 GM/DL 9.4 GM/DL Hematocrit 33.8 % 31.3 % Mean Corpuscular Volume 72.7 FL 72.4 FL Mean Corpuscular Hemoglobin 21.6 PG 21.6 PG Mean Corpuscular Hemoglobin Concent 29.7 % 29.9 % Red Cell Distribution Width 22.5 % 22.3 % Platelet Count 533 TH/MM3 525 TH/MM3 Mean Platelet Volume 8.3 FL 8.2 FL Blood Urea Nitrogen 36 MG/DL 34 MG/DL Creatinine 0.99 MG/DL 0.88 MG/DL Random Glucose 105 MG/DL 96 MG/DL Calcium Level 10.7 MG/DL 10.5 MG/DL Sodium Level 143 MEQ/L 150 MEQ/L Potassium Level 4.5 MEQ/L 3.5 MEQ/L Chloride Level 108 MEQ/L 112 MEQ/L Carbon Dioxide Level 24.5 MEQ/L 24.3 MEQ/L Anion Gap 11 MEQ/L 14 MEQ/L Estimat Glomerular Filtration Rate 57 ML/MIN 66 ML/MIN Phenytoin (Dilantin) Level 5.1 MCG/ML 5.6 MCG/ML Urine Color YELLOW Urine Turbidity HAZY Urine pH 5.5 Urine Specific [place] 1.026 Urine Protein 30 mg/dL Urine Glucose (UA) NEG mg/dL Urine Ketones NEG mg/dL Urine Occult Blood NEG Urine Nitrite NEG Urine Bilirubin NEG Urine Urobilinogen LESS THAN 2.0 MG/DL Urine Leukocyte Esterase NEG Urine RBC 2 /hpf Urine WBC 1 /hpf Urine Squamous Epithelial Cells <1 /hpf Urine Uric Acid Crystals RARE /hpf Urine Bacteria MOD /hpf Microscopic Urinalysis Comment CULTURE INDICATED Neutrophils (%) (Auto) 85.7 % Lymphocytes (%) (Auto) 6.3 % Monocytes (%) (Auto) 7.5 % Eosinophils (%) (Auto) 0.2 % Basophils (%) (Auto) 0.3 % Neutrophils # (Auto) 10.6 TH/MM3 Lymphocytes # (Auto) 0.8 TH/MM3 Monocytes # (Auto) 0.9 TH/MM3 Eosinophils # (Auto) 0.0 TH/MM3 Basophils # (Auto) 0.0 TH/MM3 CBC Comment DIFF FINAL Differential Comment Total Protein 8.5 GM/DL Albumin 3.4 GM/DL Phosphorus Level 3.5 MG/DL Magnesium Level 2.0 MG/DL Alkaline Phosphatase 256 U/L Aspartate Amino Transf (AST/SGOT) 48 U/L Alanine Aminotransferase (ALT/SGPT) 52 U/L Total Bilirubin 0.9 MG/DL Imaging Last Impressions Chest X-Ray 07/13/17 0600 Signed Impressions: Service Date/Time: Thursday, July 13, 2017 05:28 - CONCLUSION: Stable lingular scarring or atelectasis. The remainder of the lungs are clear. Floyd Magallanes MD Abdomen X-Ray 07/12/17 0000 Signed Impressions: Service Date/Time: Wednesday, July 12, 2017 12:26 - CONCLUSION: 1. Cholecystostomy tube. 2. There is only minimal stool evident within the cecum and adjacent colon. No definite findings to indicate constipation identified. King Contreras MD Chest CT 07/07/17 0000 Signed Impressions: Service Date/Time: Friday, July 07, 2017 10:35 - CONCLUSION: 1. Interval resolution of bilateral pleural effusions with improved airspace disease in the lower lobes in comparison to 06/24/2017. 2. Very subtle anterior pericardial effusion. Akira Cullen MD Abdomen/Pelvis CT 07/07/17 0000 Signed Impressions: Service Date/Time: Friday, July 07, 2017 10:35 - CONCLUSION: 1. No loculated fluid collections within the abdomen and pelvis to suggest abscess. Drainage catheter remains in right upper quadrant. 2. Improved basilar airspace consolidation in the lungs since June 24. 3. NG coiled in stomach. Ferguson catheter in decompressed bladder. No bowel obstruction, free fluid or free air. Leandro Palacios MD Brain MRI 06/27/17 0000 Signed Impressions: Service Date/Time: Tuesday, June 27, 2017 10:00 - CONCLUSION: 1. No acute intracranial abnormality. 2. Mild chronic small vessel ischemic change. Floyd Tiwari Jr., MD Head CT 06/24/17 1645 Signed Impressions: Service Date/Time: Saturday, June 24, 2017 18:00 - CONCLUSION: No acute disease. Brian Burnett MD Percutaneous Cholangiogram 06/24/17 0000 Signed Impressions: Service Date/Time: Saturday, June 24, 2017 20:36 - CONCLUSION: Uncomplicated percutaneous cholecystostomy as above. Lalo Wong MD Objective Remarks GENERAL: 57-year-old female currently resting in bed on room air in no acute distress SKIN: Warm and dry. No rash. Well perfused HEAD: Atraumatic. Normocephalic. EYES: Pupils equal and round about 2 mm bilaterally and brisk. No scleral icterus. No injection or drainage. ENT: No nasal bleeding or discharge. Orotracheally intubated NECK: Trachea midline. No JVD. CARDIOVASCULAR: Tachycardia, IR. S1, S2 no S4. RESPIRATORY: Air entry diminished at the bases. No wheezing GASTROINTESTINAL: Abdomen soft, tender to palpation in the right upper quadrant and epigastric region. Cholecystostomy tube in place with bile drainage. MUSCULOSKELETAL: Extremities with trace lower extremity peripheral edema. No obvious deformities. 1+ edema right upper extremity NEUROLOGICAL: Cranial nerves II through XII grossly intact. Strength is equal symmetric. Normal sensation Date of Insertion: Jun 24, 2017 Date of Removal: Jul 09, 2017 Line: Central Venous Catheter Side: Right Location: Subclavian A/P Assessment and Plan Neuro/Psych: Metabolic encephalopathy UDS positive for barbiturates Depression/anxiety Seizure questionable Currently acetaminophen 650 mg every 6 hours as needed fever CT brain 06/24 revealed no acute intracranial findings EEG 06/25 revealed right frontal lobe sharp activity indicative of epileptiform. Loaded with levetiracetam 1 g IV 1 on 06/26 followed by 500 mg IV twice daily. Repeat EEG 06/26 revealed continuous sharps in right frontal region, Repeat EEG 06/28- no epileptiform activity Neurology- Dr. Shannon following 06/27 MRI brain-no acute intracranial abnormality On fosphenytoin 150 mg every 8 hours and levetiracetam 500 IV twice daily per Neuro, phenytoin level: 5.6 today Repeat level in a.m. 07/12 Previously on paroxetine unknown dosage for depression CV: Atrial fibrillation rate controlled History of atrial fibrillation Hypertension Lactic acidosis resolved Moderate to Severe TR/MR Acute diastolic heart failure Tachybradycardia syndrome Currently on amiodarone drip at 0.5 mg/min. Previously on amiodarone 200 mg p.o. twice daily On metoprolol 50 mg Q6, add Cardizem 60mg Q6 2D echocardiogram revealed EF 45-50%. Decreased LV systolic function. Bilateral atrial enlargement. Moderate to Severe MR and TR. Cardiology is following, EPS consult secondary to tachybradycardia syndrome-no intervention at this time 05/[address] surgery consulted to evaluate severe MR- Dr. Paul following-no intervention at this time 05/29 clinical status, but once clinically improved will reevaluate for surgery Lactate is cleared 06/26 Labetalol PRN for SBP > 165 Resp: Acute respiratory failure Intubated 06/24, extubated and reintubated on 07/06 Stridor Right lower lobe infiltrate/pleural effusion Nasal cannula to maintain saturation greater than equal to 92%. Currently in room air Incentive spirometry while awake Completed Solumedrol 40mg Q6 for stridor. Given Decadron 10 mg IV 1 07/08 Previous extubation failure most likely from stridor but severe MR might also significantly contributing CXR: Lingula scarring /atelectasis otherwise clear lungs GI: Cholelithiasis on ultrasound 06/23 possibly acute cholecystitis Hypoalbuminemia Gastroesophageal reflux disease Elevated transaminases CT abdomen/pelvis 06/23 revealed a 1 mm gallstone. No signs of cholecystitis. Otherwise unremarkable CT abdomen/pelvis 06/24 revealed right > left pleural effusions. Gallbladder wall thickening with voracious dye excretion, descending colon edema and bilateral perinephric stranding Status post cholecystostomy tube by IR 06/24- monitor output, fluid cx: no growth General surgery recommended continue cholecystostomy tube placement. Outpatient follow-up for cholecystectomy. on pantoprazole 40 mg p.o. daily for gastroesophageal reflux disease Docusate sodium/senna 1 tablet twice daily for bowel regimen. Mineral oil enema 1. Check [facility] GI Dr. Naqvi - S/P colonoscopy and endoscopy 06/30, upper endoscopy revealed medium-sized ulcer first part of duodenum, multiple small erosions gastric antrum. Colon- Normal mucosa Currently in heart healthy diet/pured with honey thickened liquids Renal/FEN/: Acute kidney injury resolved Hypernatremia Monitor renal function, electrolytes replacement per protocol. d/c Lasix Endo: Sliding-scale insulin Novulin R with Accu-Cheks before meals/at bedtime to maintain euglycemia/low regimen TSH -1.76 Heme: Microcytic hypochromic anemia Monitor CBC daily. Follow trend ID: Sepsis likely acute cholecystitis Strep pneumo bacteremia -source gallbladder Patient has been on Pipracil/tazobactam since 06/24 and Vanco since 06/30- C- diff PCR negative on 07/06 07/07 blood culture revealed strep pneumo bacteremia. Repeat 07/09 no growth Currently on ampicillin/sulbactam and Diflucan. Vancomycin DC'd 07/07 by ID 06/25 Urine Legionella pneumococcal antigens no growth Influenza negative Pertinent cultures 07/09: Blood cultures 2 coag negative staph 07/07 -blood culture -strep pneumo 06/25 -bile -no growth 06/25 -sputum -no growth 06/24 -blood cultures 4 -no growth 06/24 -urine -no growth MSK: PT evaluate and treat Daily functional maintenance Multi-Podus boots bilaterally Prophylaxis -GI -pantoprazole -DVT -SCDs, enoxaparin 65 mg subcu twice daily Level 2 Marci Latif MD Jul 13, 2017 10:44
[2017-07-13] MEDS: DILTIAZEM HCL 60 MG TAB PO SCH ×3 (12:00→23:06)
--- NOTE | 2017-07-13 12:09 | HHI.HCPN ---
Reason for visit a. To assist with evaluation and management of symptoms including: dyspnea. pain b. To assist medical decision maker(s) with: better understanding of current medical conditions; weighing benefits/burdens of medical treatment options; making medical treatment decisions. Subjective/Interval History Patient seen in follow-up on comfort, goals, evaluate if patient able to participate in decision-making. Medically extubated 07/09, has been tolerating NC. CXR today stable/clear. ST has reevaluated, initially patient was not able to tolerate any consistency ; now recommended for pure with honey thick liquids. She remains very encephalopathic and confused, not taking enough by mouth. Recommended for NG tube. She may require longer term feeding tube if encephalopathy and oral intake does not improve. She continues to have A. fib, at times elevated heart rate, on amiodarone drip. Continues to have right abdomen cholecystostomy drain --170 mL last 24 hours. Patient seen in room no visitors present. She is awake looking around room. She does track examiner. She is oriented to self and date of . Does not appear oriented to hospital. I asked her to name her children and she does not verbalize. She does not answer my other questions, she looks at me blankly at times. She appears confused. She occasionally tries to get out of bed. Does move all 4 extremities with generalized weakness. She does follow simple commands with repetition. . Advance Directives Living Will: Never completed Health Care Surrogate: Never completed Durable Power of Charge Account Authorizer: Never completed Objective Vital Signs Date Time Temp Pulse Resp B/P (MAP) Pulse Ox O2 Delivery O2 Flow Rate FiO2 07/13/17 09:43 93 21 07/13/17 08:00 98.4 98 24 134/60 (84) 97 07/13/17 06:59 108 159/67 07/13/17 06:00 110 07/13/17 04:00 114 07/13/17 04:00 98.4 110 20 142/72 (95) 100 07/13/17 02:00 110 07/13/17 00:00 98.8 108 20 146/64 (91) 100 07/13/17 00:00 105 07/12/17 22:00 102 07/12/17 21:07 96 21 07/12/17 20:00 98.9 100 20 132/66 (88) 100 07/12/17 20:00 100 3/18/18 19:00 105 17 100 07/12/17 19:00 105 07/12/17 18:00 101 25 95 07/12/17 18:00 101 07/12/17 17:00 109 25 98 07/12/17 17:00 109 07/12/17 16:00 99.0 115 27 171/78 (109) 100 07/12/17 16:00 115 07/12/17 15:00 107 28 100 07/12/17 15:00 107 07/12/17 14:00 107 25 97 07/12/17 14:00 107 07/12/17 13:00 108 23 96 07/12/17 13:00 108 Intake & Output 07/13/17 07/13/17 07:00 19:00 Intake Total 910 ml Output Total 470 ml Balance 440 ml Intake Oral 460 ml IV Total 450 ml Output Urine Total 400 ml Drainage Total 70 ml # Voids 3 # Bowel Movements 0 Physical Exam CONSTITUTIONAL/GENERAL: This is an adequately nourished patient, awake, confused TUBES/LINES/DRAINS: PIV upper extremities , arguello catheter, NC SKIN: slight jaundice, rashes, or lesions. Skin warm/dry NECK: Trachea midline. Supple, nontender. No palpable thyroid enlargement or nodularity. CARDIOVASCULAR: Irregular rate and rhythm without murmur, rate 110s. Peripheral pulses symmetric. RESPIRATORY/CHEST: Symmetric, unlabored respirations on NC.Clear to auscultation. Breath sounds equal bilaterally. GASTROINTESTINAL: Abdomen soft, no apparent tenderness, nondistended. No palpable masses. Bowel sounds present.Drain from rt side sm amt brownish yellow present GENITOURINARY: Without palpable bladder distension. external wick catheter in place. NEUROLOGICAL: awake, tracks examiner. Eyes open. Moving all 4 extremities. intermittently following commands. oriented to self, SOB. does not answer other questions, minimally verbal otherwise. Appears confused. PSYCHIATRIC: No obvious anxiety/depression- limited assessment due to clinical condition Diagnostic Tests Laboratory Laboratory Tests Test 07/11/17 13:15 07/12/17 12:30 07/12/17 16:10 07/13/17 06:47 White Blood Count 10.8 TH/MM3 (4.0-11.0) 15.9 TH/MM3 (4.0-11.0) 12.4 TH/MM3 (4.0-11.0) Red Blood Count 4.53 MIL/MM3 (4.00-5.30) 4.65 MIL/MM3 (4.00-5.30) 4.33 MIL/MM3 (4.00-5.30) Hemoglobin 10.2 GM/DL (11.6-15.3) 10.0 GM/DL (11.6-15.3) 9.4 GM/DL (11.6-15.3) Hematocrit 32.9 % (35.0-46.0) 33.8 % (35.0-46.0) 31.3 % (35.0-46.0) Mean Corpuscular Volume 72.7 FL (80.0-100.0) 72.7 FL (80.0-100.0) 72.4 FL (80.0-100.0) Mean Corpuscular Hemoglobin 22.4 PG (27.0-34.0) 21.6 PG (27.0-34.0) 21.6 PG (27.0-34.0) Mean Corpuscular Hemoglobin Concent 30.9 % (32.0-36.0) 29.7 % (32.0-36.0) 29.9 % (32.0-36.0) Red Cell Distribution Width 22.5 % (11.6-17.2) 22.5 % (11.6-17.2) 22.3 % (11.6-17.2) Platelet Count 365 TH/MM3 (150-450) 533 TH/MM3 (150-450) 525 TH/MM3 (150-450) Mean Platelet Volume 8.6 FL (7.0-11.0) 8.3 FL (7.0-11.0) 8.2 FL (7.0-11.0) Neutrophils (%) (Auto) 74.4 % (16.0-70.0) 85.7 % (16.0-70.0) Lymphocytes (%) (Auto) 12.9 % (9.0-44.0) 6.3 % (9.0-44.0) Monocytes (%) (Auto) 11.6 % (0.0-8.0) 7.5 % (0.0-8.0) Eosinophils (%) (Auto) 0.4 % (0.0-4.0) 0.2 % (0.0-4.0) Basophils (%) (Auto) 0.7 % (0.0-2.0) 0.3 % (0.0-2.0) Neutrophils # (Auto) 8.0 TH/MM3 (1.8-7.7) 10.6 TH/MM3 (1.8-7.7) Lymphocytes # (Auto) 1.4 TH/MM3 (1.0-4.8) 0.8 TH/MM3 (1.0-4.8) Monocytes # (Auto) 1.3 TH/MM3 (0-0.9) 0.9 TH/MM3 (0-0.9) Eosinophils # (Auto) 0.0 TH/MM3 (0-0.4) 0.0 TH/MM3 (0-0.4) Basophils # (Auto) 0.1 TH/MM3 (0-0.2) 0.0 TH/MM3 (0-0.2) CBC Comment DIFF FINAL DIFF FINAL Differential Comment Blood Urea Nitrogen 37 MG/DL (7-18) 36 MG/DL (7-18) 34 MG/DL (7-18) Creatinine 0.96 MG/DL (0.50-1.00) 0.99 MG/DL (0.50-1.00) 0.88 MG/DL (0.50-1.00) Random Glucose 103 MG/DL (74-106) 105 MG/DL (74-106) 96 MG/DL (74-106) Total Protein 9.1 GM/DL (6.4-8.2) 8.5 GM/DL (6.4-8.2) Albumin 3.8 GM/DL (3.4-5.0) 3.4 GM/DL (3.4-5.0) Calcium Level 10.5 MG/DL (8.5-10.1) 10.7 MG/DL (8.5-10.1) 10.5 MG/DL (8.5-10.1) Phosphorus Level 4.1 MG/DL (2.5-4.9) 3.5 MG/DL (2.5-4.9) Magnesium Level 2.2 MG/DL (1.5-2.5) 2.0 MG/DL (1.5-2.5) Alkaline Phosphatase 266 U/L (45-117) 256 U/L (45-117) Aspartate Amino Transf (AST/SGOT) 45 U/L (15-37) 48 U/L (15-37) Alanine Aminotransferase (ALT/SGPT) 55 U/L (10-53) 52 U/L (10-53) Total Bilirubin 0.9 MG/DL (0.2-1.0) 0.9 MG/DL (0.2-1.0) Sodium Level 142 MEQ/L (136-145) 143 MEQ/L (136-145) 150 MEQ/L (136-145) Potassium Level 4.2 MEQ/L (3.5-5.1) 4.5 MEQ/L (3.5-5.1) 3.5 MEQ/L (3.5-5.1) Chloride Level 107 MEQ/L (98-107) 108 MEQ/L (98-107) 112 MEQ/L (98-107) Carbon Dioxide Level 24.0 MEQ/L (21.0-32.0) 24.5 MEQ/L (21.0-32.0) 24.3 MEQ/L (21.0-32.0) Anion Gap 11 MEQ/L (5-15) 11 MEQ/L (5-15) 14 MEQ/L (5-15) Estimat Glomerular Filtration Rate 59 ML/MIN (>89) 57 ML/MIN (>89) 66 ML/MIN (>89) Phenytoin (Dilantin) Level 8.3 MCG/ML (10.0-20.0) 5.1 MCG/ML (10.0-20.0) 5.6 MCG/ML (10.0-20.0) Urine Color YELLOW (YELLW/STRAW) Urine Turbidity HAZY (CLEAR) Urine pH 5.5 (5.0-8.5) Urine Specific [place] 1.026 (1.002-1.035) Urine Protein 30 mg/dL (NEG-TRACE) Urine Glucose (UA) NEG mg/dL (NEG) Urine Ketones NEG mg/dL (NEG) Urine Occult Blood NEG (NEG) Urine Nitrite NEG (NEG) Urine Bilirubin NEG (NEG) Urine Urobilinogen LESS THAN 2.0 MG/DL (LESS Urine Leukocyte Esterase NEG (NEG) Urine RBC 2 /hpf (0-3) Urine WBC 1 /hpf (0-5) Urine Squamous Epithelial Cells <1 /hpf (0-5) Urine Uric Acid Crystals RARE /hpf (NONE) Urine Bacteria MOD /hpf (NONE) Microscopic Urinalysis Comment CULTURE INDICATED Result Diagram: 07/13/17 0647 07/13/17 0647 Microbiology Microbiology Date/Time Source Procedure Growth Status 07/09/17 17:42 Blood Peripheral Aerobic Blood Culture - Final Staph. Cohnii-Urealyticum Resulted 07/09/17 17:42 Blood Peripheral Anaerobic Blood Culture - Preliminary NO GROWTH IN 4 DAYS Resulted 06/25/17 08:00 Fluid Bile Fluid Gram Stain - Final Complete 06/25/17 08:00 Fluid Bile Fluid Body Fluid Culture - Final NO GROWTH IN 72 HRS.--AEROBICALLY OR ... Complete 07/06/17 21:22 Sputum Endotracheal Gram Stain - Final Complete 07/06/17 21:22 Sputum Endotracheal Sputum Culture - Final LIGHT GROWTH NORMAL RESPIRATORY DELIO Complete 07/12/17 16:10 Urine Random Urine Urine Culture Pending Received Microbiology Date/Time Source Procedure Growth Status 07/12/17 16:10 Urine Random Urine Urine Culture Pending Received Imaging Last Impressions Chest X-Ray 07/13/17 0600 Signed Impressions: Service Date/Time: Thursday, July 13, 2017 05:28 - CONCLUSION: Stable lingular scarring or atelectasis. The remainder of the lungs are clear. Floyd Magallanes MD Abdomen X-Ray 07/12/17 0000 Signed Impressions: Service Date/Time: Wednesday, July 12, 2017 12:26 - CONCLUSION: 1. Cholecystostomy tube. 2. There is only minimal stool evident within the cecum and adjacent colon. No definite findings to indicate constipation identified. King Contreras MD Chest CT 07/07/17 0000 Signed Impressions: Service Date/Time: Friday, July 07, 2017 10:35 - CONCLUSION: 1. Interval resolution of bilateral pleural effusions with improved airspace disease in the lower lobes in comparison to 06/24/2017. 2. Very subtle anterior pericardial effusion. Akira Cullen MD Abdomen/Pelvis CT 07/07/17 0000 Signed Impressions: Service Date/Time: Friday, July 07, 2017 10:35 - CONCLUSION: 1. No loculated fluid collections within the abdomen and pelvis to suggest abscess. Drainage catheter remains in right upper quadrant. 2. Improved basilar airspace consolidation in the lungs since June 24. 3. NG coiled in stomach. Arguello catheter in decompressed bladder. No bowel obstruction, free fluid or free air. Leandro Palacios MD Brain MRI 06/27/17 0000 Signed Impressions: Service Date/Time: Tuesday, June 27, 2017 10:00 - CONCLUSION: 1. No acute intracranial abnormality. 2. Mild chronic small vessel ischemic change. Floyd Tiwari Jr., MD Head CT 06/24/17 1645 Signed Impressions: Service Date/Time: Saturday, June 24, 2017 18:00 - CONCLUSION: No acute disease. Brian Burnett MD Percutaneous Cholangiogram 06/24/17 0000 Signed Impressions: Service Date/Time: Saturday, June 24, 2017 20:36 - CONCLUSION: Uncomplicated percutaneous cholecystostomy as above. Lalo Wong MD Procedures 07/09 extubated 07/06 extubated- reintubated 07/06 Assessment and Plan Disease Oriented Problem List: (1) Atrial fibrillation with RVR (2) Anemia (3) Pulmonary edema (4) Cholecystitis (5) Cardiomyopathy (6) Acute encephalopathy (7) Hypertension (8) Tachy-joe syndrome (9) Severe mitral regurgitation (10) Diastolic heart failure (11) Sepsis (12) GERD (gastroesophageal reflux disease) Symptom Scale: (1) Dyspnea 0-10 Scale: Unable to quantify (2) Pain 0-10 Scale: Unable to quantify (3) Encephalopathy 0-10 Scale: Unable to quantify Pertinent Non-Medical Issues Psychosocial:Pt not working, 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 Spiritual:none listed. Legal:Pt is . Currently has 4 children Kenneth Ott [phone] Yaneth; [phone] Health care proxy are the 4 children. Ethical issues impacting care:none Important Contacts Son: Kenneth [phone] dtr Yaneth [phone]. dtr Charisse [phone] son Billy [phone] . Prognosis 57 year old prognosis is guarded. Code Status: Full Code Plan ==Code: FULL CODE == Decision maker- pt currently does not capacity to make medical decisions.pt is . No advance directives. [place] proxy would be pt's four children: Kenneth, Yaneth, Charisse, and Billy. (family indicated they are OK w Kenneth serving as spokesperson.) == symptoms: pain- acute cholecystitis, now bedbound. +abd tender to exam. Cautious use opiates 2/2 AMS/encephalopathy,recent medical extubation. dyspnea- on mechanical ventilation--> medically extubated 07/06, tolerating room air-->> later reintubated. CXR some improvement RLL, + consolidation LLL.CT chest neg acute process EXTUBATED again 07/09, tolerating NC encephalopathy- hx ? seizures. ? toxic metabolic encephalopathy.ammonia 07/03 =10. 07/09 -07/13 confused, not consistently following commands/non verbal not answering yes/no appropriately == goals of care: I reviewed CODE STATUS with patient family multiple times including after most recent extubation. We have reviewed the alternative of ongoing aggressive interventions (including possible tracheostomy, feeding tube ) vs comfort directed treatment. Family has expressed aggressive goals, hoping she will improve, though understand she may not , they are open to ongoing discussion as clinical course evolves. == palliative care will follow to make recommendations for symptoms and to review goals of care as pt's condition evolves. Attestation To help prompt me to consider important information that might be impacting today's encounter and assessment, information from prior notes written by myself or my colleagues may have been "brought forward" into today's note. My signature on this note, however, is an attestation that I personally performed the exam, history, and/or decision-making noted today, and, unless otherwise indicated, the interactions with patient, family, and staff as well as the review of records all occurred today. I also attest that the listed assessment and stated plan reflect my best clinical judgment today based on the combination of historical information, prior notes, and today's exam/ interactions. When time spent is documented, it refers only to time spent today by the signer, or if indicated, combined time spent today by collaborating physician/nurse practitioner. Idalia Riggs Jul 13, 2017 12:09
--- NOTE | 2017-07-13 13:05 | PD.CARD.PN ---
Subjective Subjective Remarks disoriented Objective Medications Current Medications Medications (Trade) Dose Ordered Sig/Salud Route Start Time Stop Time Status Last Admin (Narcan Inj) 0.4 mg UNSCH PRN IV PUSH 06/23/17 20:30 Sodium Phosphate 30 mmol/Sodium Chloride 250 ml @ 42 mls/hr UNSCH PRN IV 06/24/17 17:00 Potassium Phosphate 30 mmol/ Sodium Chloride 260 ml @ 42 mls/hr UNSCH PRN IV 06/24/17 17:00 07/11/17 10:32 (D50w (Vial) Inj) 50 ml UNSCH PRN IV PUSH 06/24/17 17:00 07/09/17 15:53 (Glucagon Inj) 1 mg UNSCH PRN OTHER 06/24/17 17:00 (NS Flush) 2 ml UNSCH PRN IV FLUSH 06/24/17 17:00 07/08/17 16:58 (NS Flush) 2 ml BID IV FLUSH 06/24/17 21:00 07/13/17 09:03 (Zofran Inj) 4 mg Q6H PRN IV PUSH 06/24/17 17:00 07/05/17 17:24 (Albuterol Neb) 2.5 mg Q2HR NEB PRN INH 06/24/17 17:00 07/07/17 20:49 Miscellaneous Information 1 Q361D XX 06/24/17 18:00 (Chlorhexidine 2% Cloth) Taper DAILY@04 TOP 06/25/17 04:00 06/21/18 03:59 07/13/17 03:31 (Chlorhexidine 2% Cloth) 3 pack UNSCH PRN TOP 06/24/17 17:00 (Keiry-Colace) 1 tab BID PO 06/24/17 21:00 07/13/17 09:21 (Senokot) 17.2 mg Q12H PRN PO 06/24/17 17:00 (Dulcolax Supp) 10 mg DAILY PRN RECTAL 06/24/17 17:00 (Lactulose Liq) 30 ml DAILY PRN PO 06/24/17 17:00 07/10/17 17:27 (Peridex 0.12% Liq) 15 ml BID@08,20 MT 06/24/17 20:00 07/11/17 08:00 (Brethine Inj) 1 mg UNSCH PRN SQ 06/24/17 19:30 (Tylenol 650 Mg/ 20 ml Liq) 650 mg Q6H PRN NG 06/25/17 08:45 07/12/17 15:40 (Cordarone) 200 mg Q12HR PO 06/29/17 16:00 Future Hold 07/11/17 09:44 (Lopressor Inj) 2.5 mg Q6H PRN IV PUSH 06/30/17 09:45 07/11/17 05:01 (Trandate Inj) 10 mg Q4H PRN IV PUSH 07/02/17 16:45 07/06/17 04:35 (Mycostatin Liq) 5 ml QID SWISH-SWAL 07/04/17 09:00 07/18/17 09:00 07/13/17 09:21 (Racepinephrine 2.25% Neb) 0.5 ml Q3HR NEB PRN NEB 07/08/17 12:30 07/09/17 10:43 (Cerebyx Inj) 150 mgpe Q8HR IV 07/08/17 14:00 07/13/17 05:20 (Diflucan) 100 mg DAILY PO 07/10/17 09:00 07/13/17 09:21 Ampicillin Sodium/ Sulbactam Sodium 3 gm/Sodium Chloride 100 ml @ 200 mls/hr Q6H IV 07/10/17 14:00 07/13/17 09:03 (Duoneb Neb) 1 ampule Q4HR NEB NEB 07/10/17 16:00 07/13/17 12:37 Amiodarone HCl 450 mg/Sodium Chloride 250 ml @ 33.33 mls/ hr Q7H31M PRN IV 07/11/17 10:15 07/13/17 06:59 (NovoLIN R SUPPLEMENTAL SCALE) 1 ACHS SQ 07/12/17 12:00 (Lopressor) 50 mg Q6HR PO 07/12/17 12:00 07/13/17 05:21 (Lovenox Inj) 65 mg BID SQ 07/12/17 21:00 07/13/17 09:21 (Keppra) 500 mg Q12HR PO 07/12/17 21:00 07/13/17 09:21 (Protonix) 40 mg DAILY PO 07/13/17 09:00 07/13/17 09:21 (Cardizem) 60 mg Q6HR PO 07/13/17 12:00 Vital Signs / I&O Vital Signs Date Time Temp Pulse Resp B/P (MAP) Pulse Ox O2 Delivery O2 Flow Rate FiO2 07/13/17 09:43 93 21 07/13/17 08:00 98.4 98 24 134/60 (84) 97 07/13/17 06:59 108 159/67 07/13/17 06:00 110 07/13/17 04:00 114 07/13/17 04:00 98.4 110 20 142/72 (95) 100 07/13/17 02:00 110 07/13/17 00:00 98.8 108 20 146/64 (91) 100 07/13/17 00:00 105 07/12/17 22:00 102 07/12/17 21:07 96 21 07/12/17 20:00 98.9 100 20 132/66 (88) 100 07/12/17 20:00 100 07/12/17 19:00 105 17 100 07/12/17 19:00 105 07/12/17 18:00 101 25 95 07/12/17 18:00 101 07/12/17 17:00 109 25 98 07/12/17 17:00 109 07/12/17 16:00 99.0 115 27 171/78 (109) 100 07/12/17 16:00 115 07/12/17 15:00 107 28 100 07/12/17 15:00 107 07/12/17 14:00 107 25 97 07/12/17 14:00 107 I/O 07/12/17 07/12/17 07/12/17 07/13/17 07/13/17 07/13/17 07:00 15:00 23:00 07:00 15:00 23:00 Intake Total 1110 ml 100 ml 1040 ml 810 ml Output Total 400 ml 300 ml 470 ml Balance 710 ml 100 ml 740 ml 340 ml Intake Oral 240 ml 840 ml 460 ml IV Total 870 ml 100 ml 200 ml 350 ml Output Urine Total 400 ml 200 ml 400 ml Drainage Total 100 ml 70 ml # Voids 3 3 # Bowel Movements 0 0 Physical Exam GENERAL: SKIN: Warm and dry. HEAD: Normocephalic. EYES: No scleral icterus. No injection or drainage. NECK: Supple, trachea midline. No JVD or lymphadenopathy. CARDIOVASCULAR: Regular rate and rhythm without murmurs, gallops, or rubs. RESPIRATORY: Breath sounds equal bilaterally. No accessory muscle use. GASTROINTESTINAL: Abdomen soft, non-tender, nondistended. MUSCULOSKELETAL: No cyanosis, or edema. BACK: Nontender without obvious deformity. No CVA tenderness. Laboratory Laboratory Tests Test 07/12/17 16:10 07/13/17 06:47 Urine Color YELLOW Urine Turbidity HAZY Urine pH 5.5 Urine Specific [place] 1.026 Urine Protein 30 mg/dL Urine Glucose (UA) NEG mg/dL Urine Ketones NEG mg/dL Urine Occult Blood NEG Urine Nitrite NEG Urine Bilirubin NEG Urine Urobilinogen LESS THAN 2.0 MG/DL Urine Leukocyte Esterase NEG Urine RBC 2 /hpf Urine WBC 1 /hpf Urine Squamous Epithelial Cells <1 /hpf Urine Uric Acid Crystals RARE /hpf Urine Bacteria MOD /hpf Microscopic Urinalysis Comment CULTURE INDICATED White Blood Count 12.4 TH/MM3 Red Blood Count 4.33 MIL/MM3 Hemoglobin 9.4 GM/DL Hematocrit 31.3 % Mean Corpuscular Volume 72.4 FL Mean Corpuscular Hemoglobin 21.6 PG Mean Corpuscular Hemoglobin Concent 29.9 % Red Cell Distribution Width 22.3 % Platelet Count 525 TH/MM3 Mean Platelet Volume 8.2 FL Neutrophils (%) (Auto) 85.7 % Lymphocytes (%) (Auto) 6.3 % Monocytes (%) (Auto) 7.5 % Eosinophils (%) (Auto) 0.2 % Basophils (%) (Auto) 0.3 % Neutrophils # (Auto) 10.6 TH/MM3 Lymphocytes # (Auto) 0.8 TH/MM3 Monocytes # (Auto) 0.9 TH/MM3 Eosinophils # (Auto) 0.0 TH/MM3 Basophils # (Auto) 0.0 TH/MM3 CBC Comment DIFF FINAL Differential Comment Blood Urea Nitrogen 34 MG/DL Creatinine 0.88 MG/DL Random Glucose 96 MG/DL Total Protein 8.5 GM/DL Albumin 3.4 GM/DL Calcium Level 10.5 MG/DL Phosphorus Level 3.5 MG/DL Magnesium Level 2.0 MG/DL Alkaline Phosphatase 256 U/L Aspartate Amino Transf (AST/SGOT) 48 U/L Alanine Aminotransferase (ALT/SGPT) 52 U/L Total Bilirubin 0.9 MG/DL Sodium Level 150 MEQ/L Potassium Level 3.5 MEQ/L Chloride Level 112 MEQ/L Carbon Dioxide Level 24.3 MEQ/L Anion Gap 14 MEQ/L Estimat Glomerular Filtration Rate 66 ML/MIN Phenytoin (Dilantin) Level 5.6 MCG/ML Imaging Last 24 hours Impressions Chest X-Ray 07/13/17 0600 Signed Impressions: Service Date/Time: Thursday, July 13, 2017 05:28 - CONCLUSION: Stable lingular scarring or atelectasis. The remainder of the lungs are clear. Floyd Magallanes MD Assessment and Plan Problem List: (1) Sepsis ICD Codes: A41.9 - Sepsis, unspecified organism (2) Cardiomyopathy ICD Codes: I42.9 - Cardiomyopathy, unspecified (3) Mitral regurgitation ICD Codes: I34.0 - Nonrheumatic mitral (valve) insufficiency (4) Bradycardia ICD Codes: R00.1 - Bradycardia, unspecified (5) Atrial fibrillation with RVR ICD Codes: I48.91 - Unspecified atrial fibrillation Status: Acute (6) Anemia ICD Codes: D64.9 - Anemia, unspecified Status: Acute (7) Pulmonary edema ICD Codes: J81.1 - Chronic pulmonary edema (8) Cholecystitis ICD Codes: K81.9 - Cholecystitis, unspecified Assessment and Plan 1.) Cardiomyopathy - on lopressor, 2.) Afib - consult Dr Arellano, due to tachy-oje syndrome, tolerating lopressor and lovenox, on po and iv amio 3.) Severe mr - consult ct surgery to determine if patient is a surgical candidate for potential mvr and cath if she is when hemodynamically stable, patient consents and rx plan for cholecystitis defined Problem Qualifiers (1) Anemia: Qualified Codes: D64.9 - Anemia, unspecified Gianni Jeffers MD Jul 13, 2017 13:05
[2017-07-13] MEDS ORDERED: LISINOPRIL 5 MG TAB PO ONE (13:15)
[2017-07-13] MEDS ORDERED: PILL SPLITTER OTHER PRN (14:00)
[2017-07-13] MEDS: LABETALOL HCL 100 MG/20 ML VIAL IV PUSH PRN (16:16)
[2017-07-14] VITALS (21 sets, daily range): BP systolic 130–165; BP diastolic 65–88; PULSE 83–106; RESP 18–25; TEMP 98–98.8; O2SAT 80–100
[2017-07-14] MEDS: AMIODARONE INJ 450 MG in SODIUM CHLOR 0.9% (EXCEL) INJ 241 ML IV PRN (00:14)
[2017-07-14] MEDS: AMPICILLIN-SULBACTAM INJ 3 GM in SODIUM CHLORIDE 0.9% INJ 100 ML IV SCH ×4 (02:15→19:54)
[2017-07-14] MEDS: CHLORHEXIDINE GLUCONATE 2 % 1 PACK (2 CLOTHS) TOP SCH ×2 (03:39→22:00)
[2017-07-14] MEDS: RESP: ALBUTEROL 2.5 MG/IPRATROPIUM 0.5 MG NEB (SCH) NEB ×3 (04:12→11:38)
[2017-07-14] MEDS: FOSPHENYTOIN SODIUM 100 MG PE/2 ML VIAL IV SCH ×3 (05:32→21:29)
[2017-07-14] MEDS: DILTIAZEM HCL 60 MG TAB PO SCH ×4 (05:32→23:16)
[2017-07-14] MEDS: METOPROLOL TARTRATE 50 MG TAB PO SCH ×4 (05:32→23:16)
[2017-07-14] MEDS: CHLORHEXIDINE 0.12% (ORAL KIT) 15 ML CUP MT SCH ×2 (08:00→19:55)
[2017-07-14] MEDS: INSULIN NovoLIN REGULAR SUPPLEMENTAL SCALE SQ SCH ×4 (08:17→19:55)
[2017-07-14] MEDS: PANTOPRAZOLE SOD 40 MG DELAYED RELEASE TAB PO SCH (08:17)
[2017-07-14] MEDS: SODIUM CHLORIDE 0.9% FLUSH 10 ML FLUSH IV FLUSH SCH ×2 (08:17→19:55)
[2017-07-14] MEDS: levETIRAcetam 500 MG TAB PO SCH ×2 (08:18→20:02)
[2017-07-14] MEDS: LISINOPRIL 5 MG TAB PO SCH (08:18)
[2017-07-14] MEDS: NYSTATIN SUSP 500,000 U/5 ML CUP SWISH-SWAL SCH ×4 (08:18→19:54)
[2017-07-14] MEDS: FLUCONAZOLE 100 MG TAB PO SCH (08:18)
[2017-07-14] MEDS: ENOXAPARIN SODIUM 80 MG/0.8 ML SYRINGE SQ SCH ×2 (08:18→19:55)
[2017-07-14] MEDS: DOCUSATE SODIUM 50 MG/SENNA 8.6 MG TAB PO SCH ×2 (08:18→19:54)
--- NOTE | 2017-07-14 09:52 | HHI.CCPN ---
Subjective Remarks/Hospital Course 57-year-old female. Date of admission 06/23/2017. Date of consultation 2017. Past medical history includes Patient originally presented to [facility] ED in atrial fibrillation with rapid ventricular response. Patient was initially started on a diltiazem drip and then was switched over to metoprolol tartrate 50 mg every 8 hours. After conversion, patient became bradycardic. CT abdomen/pelvis revealed a 1 mm gallstone without signs of cholecystitis. Otherwise unremarkable. The patient became more somnolent on the floor and bradycardic with heart rates as low as 42. EKG revealed sinus bradycardia with a first-degree AV block. Patient was arousable and with good pain in 1-2 word responses but fell asleep immediately. On examination patient did have pain especially in her right upper quadrant. CBC revealed hemoglobin 8.4. Ammonia level 35. BNP of 341. Remainder of laboratories are currently pending. Chest x-ray revealed right lower lobe infiltrate versus effusion. Patient did receive 60 mg total of furosemide within the past 24 hours. 3: Afebrile. Status post percutaneous cholecystostomy tube yesterday with aggressive crystalloid resuscitation. Currently resting in bed in no acute distress. Not on vasopressors. 32: Afebrile. A. fib with RVR overnight started on amiodarone drip. Digoxin 0.25 mg and diltiazem 10 mg given prior to initiation of amiodarone. Remains sedated on the ventilator. Possible seizure activity on EEG. Neurology is been counseled.. EPS cardiology and cardiothoracic surgery also been consulted for tachybradycardia syndrome and severe MR. Dr. Sterling/neurosurgeon is clear to trickle feeds today 33: Afebrile. EEG revealed continuous sharp spikes involving right frontal central region. Remains on levetiracetam at 500 mg every 12 hours. Noted possible switch to fosphenytoin per EEG report. Currently on propofol drip at 30 mcg/kg/min. Withdraws bilateral lower exams. Does not withdraw upper extremities currently. MRI brain currently pending. Tolerating trickle feeds at 10 cc an hour. 3: Repeat EEG pending today. Fosphenytoin added to medication regimen yesterday.No change in neurological assessment. Trickle feeds increased to 20 cc/hour with minimal residuals. 06/29: EEG repeated only showed slow waves possibly medication contributory. Patient previously on anticoagulation prior to admission and her to A. fib RVR, but due to concern for indeterminate source of anemia, GI consulted for recommendations and evaluation of risks/ benefits to initiate anticoagulation therapy. Patient continued to have pleural effusions Lasix IV dose 40 mg given. 06/30: Tolerated CPAP trials 2 hours, continues to be nonresponsive. Patient underwent EGD and colonoscopy colonoscopy was within normal limits. EGD revealed small erosions in the first part of the duodenum and a medium-sized ulcer. Recommended per GI to initiate/ resume anticoagulant therapy. Plan for every 12 hours H&H. 07/01: Patient remained on CPAP trials for approximately 2 hours. Patient remains encephalopathic off sedation. Noted hemoglobin drop will continue to closely monitor as therapeutic anticoagulation was initiated yesterday. 07/02: Hemoglobin stable. Patient continues on CPAP with light sedation. With sedation vacation the patient still is not responding to commands, not tracking. EEG shows no epileptiform activity. Patient will require tracheostomy and PEG placement consideration in the near future .Palliative care has been consulted. 07/03: Afebrile. Sedation has been completely discontinued, patient's opens eyes spontaneously movement of lower extremities to pain,but not on command. Patient continues on CPAP for greater than 24 hours. Plan discussion of to define goals of care with family per palliative care team. ET . 07/04: Tmax 100.0. The patient is now tracking visually, and following some commands ,sedation discontinued greater than 48 hours. Noted chest x-ray improvement. Continues on CPAP Extensive discussion with son this a.m. via telephone( Kenneth Walker), patient would not desire a tracheostomy, long-term mechanical ventilation or PEG. Tentative plan for Thursday for patient's 4 children to meet with palliative care to define goals of care. Discussion regarding blood products, patient is to receive blood products if needed. Per patient's family the patient attends a " [employer]" latter day, but is not a baptized [employer] witness, and continue transfusion of blood products if needed. 07/05: Hemoglobin remained stable. Patient awake and alert responding with yes and no questions. Following commands. Plan for trial of extubation in a.m., after discussion /(with family and palliative care team. Potassium level 3.2., Repletion KCL with 80 meq this a.m.. 07/06 Patient remains on CPAP PS 10, PEEP:5 with FIO2 305. Awake, tolerating tube feeds. Afebrile. 07/07 Patient was extubated yesterday morning however she was reintubated approx 1700 for resp failure and noted to have stridor, she was placed on Cardizem drip overnight 10mg/hr for Afib RVR, sedated with Diprivan and Fentanyl drip. T; 101.0 last night 07/08: Remains intubated heavily sedated. Appears to be breathing comfortably. Remains in atrial fibrillation but rate controlled. No fever. Cultures so far have been negative. Failed extubation last time due to stridor. Check cuff leak and start CPAP trials if tolerated. Given Decadron 10 mg IV 1, Lasix 60 mg IV 1 due to fluid overload 07/09: Patient remains intubated sedated with propofol and fentanyl. Urine output improved with Lasix 2.7 L in 24 hours. There was no cuff leak when checked yesterday, but patient has just 8.0 tube. Attempt CPAP trial again with parameters, ABG. Mitral regurgitation could be problematic with extubation if severe 07/10: Resting comfortably in bed in no acute distress. Failed swallow evaluation seen. Replacing potassium today. Continues to be encephalopathic 07/11: T-max 100. Currently afebrile currently in A. fib with RVR. Remains confused. Tolerated cardiac meds by mouth overnight. Will attempt to place another small bore NG tube today. Subjective 07/12: Remains in A. fib with RVR despite amiodarone drip. Currently on heart healthy diet/pured with honey thickened liquids. No bowel movement. 07/13 Patient remains in Afib with RVR on Amio drip. Afebrile. 07/14 No events overnight. On Amio drip. Objective Vital Signs Date Time Temp Pulse Resp B/P (MAP) Pulse Ox O2 Delivery O2 Flow Rate FiO2 07/14/17 08:11 99 21 07/14/17 06:00 104 07/14/17 04:00 98.7 19 158/79 (105) Intake and Output 07/14/17 07/14/17 07/15/17 08:00 16:00 00:00 Intake Total 421 ml Output Total 750 ml Balance -329 ml Result Diagram: 07/13/17 0647 07/13/17 0647 Imaging Last Impressions Chest X-Ray 07/13/17 0600 Signed Impressions: Service Date/Time: Thursday, July 13, 2017 05:28 - CONCLUSION: Stable lingular scarring or atelectasis. The remainder of the lungs are clear. Floyd Magallanes MD Abdomen X-Ray 07/12/17 0000 Signed Impressions: Service Date/Time: Wednesday, July 12, 2017 12:26 - CONCLUSION: 1. Cholecystostomy tube. 2. There is only minimal stool evident within the cecum and adjacent colon. No definite findings to indicate constipation identified. King Contreras MD Chest CT 07/07/17 0000 Signed Impressions: Service Date/Time: Friday, July 07, 2017 10:35 - CONCLUSION: 1. Interval resolution of bilateral pleural effusions with improved airspace disease in the lower lobes in comparison to 06/24/2017. 2. Very subtle anterior pericardial effusion. Akira Cullen MD Abdomen/Pelvis CT 07/07/17 0000 Signed Impressions: Service Date/Time: Friday, July 07, 2017 10:35 - CONCLUSION: 1. No loculated fluid collections within the abdomen and pelvis to suggest abscess. Drainage catheter remains in right upper quadrant. 2. Improved basilar airspace consolidation in the lungs since June 24. 3. NG coiled in stomach. Ferguson catheter in decompressed bladder. No bowel obstruction, free fluid or free air. Leandro Palacios MD Brain MRI 06/27/17 0000 Signed Impressions: Service Date/Time: Tuesday, June 27, 2017 10:00 - CONCLUSION: 1. No acute intracranial abnormality. 2. Mild chronic small vessel ischemic change. Floyd Tiwari Jr., MD Head CT 06/24/17 1645 Signed Impressions: Service Date/Time: Saturday, June 24, 2017 18:00 - CONCLUSION: No acute disease. Brian Burnett MD Percutaneous Cholangiogram 06/24/17 0000 Signed Impressions: Service Date/Time: Saturday, June 24, 2017 20:36 - CONCLUSION: Uncomplicated percutaneous cholecystostomy as above. Lalo Wong MD Objective Remarks GENERAL: 57-year-old female currently resting in bed on room air in no acute distress SKIN: Warm and dry. No rash. Well perfused HEAD: Atraumatic. Normocephalic. EYES: Pupils equal and round about 2 mm bilaterally and brisk. No scleral icterus. No injection or drainage. ENT: No nasal bleeding or discharge. Orotracheally intubated NECK: Trachea midline. No JVD. CARDIOVASCULAR: Tachycardia, IR. S1, S2 no S4. RESPIRATORY: Air entry diminished at the bases. No wheezing GASTROINTESTINAL: Abdomen soft, tender to palpation in the right upper quadrant and epigastric region. Cholecystostomy tube in place with bile drainage. MUSCULOSKELETAL: Extremities with trace lower extremity peripheral edema. No obvious deformities. 1+ edema right upper extremity NEUROLOGICAL: Cranial nerves II through XII grossly intact. Strength is equal symmetric. Normal sensation Date of Insertion: Jun 24, 2017 Date of Removal: Jul 09, 2017 Line: Central Venous Catheter Side: Right Location: Subclavian A/P Assessment and Plan Neuro/Psych: Metabolic encephalopathy UDS positive for barbiturates Depression/anxiety Seizure questionable Awake, alert acetaminophen 650 mg every 6 hours as needed fever CT brain 06/24 revealed no acute intracranial findings EEG 06/25 revealed right frontal lobe sharp activity indicative of epileptiform. Loaded with levetiracetam 1 g IV 1 on 06/26 followed by 500 mg IV twice daily. Repeat EEG 06/26 revealed continuous sharps in right frontal region, Repeat EEG 06/28- no epileptiform activity Neurology- Dr. Shannon following 06/27 MRI brain-no acute intracranial abnormality On fosphenytoin 150 mg every 8 hours and levetiracetam 500 IV twice daily per Neuro, phenytoin level: 5.6 07/13 Repeat level in a.m. 07/12 Previously on paroxetine unknown dosage for depression CV: Atrial fibrillation rate History of atrial fibrillation Hypertension Lactic acidosis resolved Moderate to Severe TR/MR Acute diastolic heart failure Tachybradycardia syndrome Currently on amiodarone drip at 0.5 mg/min. Previously on amiodarone 200 mg p.o. twice daily On metoprolol 50 mg Q6, Cardizem 60mg Q6, Lisinopril 2.5mg daily Consult Dr. Adan anne for ablation discussed with Dr. Jeffers 2D echocardiogram revealed EF 45-50%. Decreased LV systolic function. Bilateral atrial enlargement. Moderate to Severe MR and TR. Cardiology is following, EPS consult secondary to tachybradycardia syndrome-no intervention at this time 05/[address] surgery consulted to evaluate severe MR- Dr. Paul following-no intervention at this time 05/29 clinical status, but once clinically improved will reevaluate for surgery Lactate is cleared 06/26 Labetalol PRN for SBP > 165 Resp: Acute respiratory failure Intubated 06/24, extubated and reintubated on 07/06 Stridor Right lower lobe infiltrate/pleural effusion Nasal cannula to maintain saturation greater than equal to 92%. Currently in room air Incentive spirometry while awake Completed Solumedrol 40mg Q6 for stridor. Given Decadron 10 mg IV 1 07/08 Previous extubation failure most likely from stridor but severe MR might also significantly contributing CXR: Lingula scarring /atelectasis otherwise clear lungs GI: Cholelithiasis on ultrasound 06/23 possibly acute cholecystitis Hypoalbuminemia Gastroesophageal reflux disease Elevated transaminases CT abdomen/pelvis 06/23 revealed a 1 mm gallstone. No signs of cholecystitis. Otherwise unremarkable CT abdomen/pelvis 06/24 revealed right > left pleural effusions. Gallbladder wall thickening with voracious dye excretion, descending colon edema and bilateral perinephric stranding Status post cholecystostomy tube by IR 06/24- monitor output, fluid cx: no growth General surgery recommended continue cholecystostomy tube placement. Outpatient follow-up for cholecystectomy. on pantoprazole 40 mg p.o. daily for gastroesophageal reflux disease Docusate sodium/senna 1 tablet twice daily for bowel regimen. Mineral oil enema 1. Check [facility] GI Dr. Naqvi - S/P colonoscopy and endoscopy 06/30, upper endoscopy revealed medium-sized ulcer first part of duodenum, multiple small erosions gastric antrum. Colon- Normal mucosa Currently in heart healthy diet/pured with honey thickened liquids Renal/FEN/: Acute kidney injury resolved Hypernatremia Monitor renal function, electrolytes replacement per protocol. Endo: Sliding-scale insulin Novulin R with Accu-Cheks before meals/at bedtime to maintain euglycemia/low regimen TSH -1.76 Heme: Microcytic hypochromic anemia Monitor CBC daily. Follow trend ID: Sepsis likely acute cholecystitis Strep pneumo bacteremia -source gallbladder Patient has been on Pipracil/tazobactam since 06/24 and Vanco since 06/30- C- diff PCR negative on 07/06 07/07 blood culture revealed strep pneumo bacteremia. Repeat 07/09 no growth Currently on ampicillin/sulbactam and Diflucan. Vancomycin DC'd 07/07 by ID 06/25 Urine Legionella pneumococcal antigens no growth Influenza negative Pertinent cultures 07/09: Blood cultures 2 coag negative staph 07/07 -blood culture -strep pneumo 06/25 -bile -no growth 06/25 -sputum -no growth 06/24 -blood cultures 4 -no growth 06/24 -urine -no growth MSK: PT evaluate and treat Daily functional maintenance Multi-Podus boots bilaterally Prophylaxis -GI -pantoprazole -DVT -SCDs, enoxaparin 65 mg subcu twice daily Level 2 Marci Latif MD Jul 14, 2017 09:52
--- NOTE | 2017-07-14 13:04 | HHI.HCPN ---
Reason for visit a. To assist with evaluation and management of symptoms including: dyspnea. pain b. To assist medical decision maker(s) with: better understanding of current medical conditions; weighing benefits/burdens of medical treatment options; making medical treatment decisions. Subjective/Interval History Patient seen in follow-up on comfort, goals, evaluate if patient able to participate in decision-making. Medically extubated 07/09, has been tolerating NC. More alert, still confused . She remains on amiodarone for atrial fibrillation. ST continues to follow-- patient tolerating pured diet with pudding thick liquids, some coughing and aspiration risk with thinner liquids. He also following patient not consistently following commands for them. CBC with inpatient recent baseline. Chemistry pending. Patient seen in room no visitors present. She is awake looking around room. She does track examiner. She is oriented to self and date of . When asked where she was she states Aram's house. Asked her who Aram is, she tells me her son. Gently explore that she is in the hospital ask her if she knows why she looks at me blankly. She is unable to name the year. When I asked her the president she says that Willian however does not complete her sentence when I ask her if it is strong she says no. Does move all 4 extremities with generalized weakness. She does follow simple commands with repetition. She denies shortness of breath. When asked about pain she tells me her stomach hurts, she tells me in the middle of her stomach. She is unable to further quantify or describe. She denies pain elsewhere. She denies nausea or vomiting. . Family/friend interactions call to son Kenneth to provide update, VM left. . Advance Directives Living Will: Never completed Health Care Surrogate: Never completed Durable Power of Cylinder Press Operator Apprentice: Never completed Objective Vital Signs Date Time Temp Pulse Resp B/P (MAP) Pulse Ox O2 Delivery O2 Flow Rate FiO2 07/14/17 08:11 99 21 07/14/17 06:00 104 07/14/17 04:00 93 07/14/17 04:00 98.7 93 19 158/79 (105) 98 07/14/17 02:00 91 07/14/17 00:14 93 165/69 07/14/17 00:00 98.8 100 22 165/69 (101) 100 07/14/17 00:00 100 07/13/17 22:00 122 07/13/17 20:48 97 21 07/13/17 20:00 98.6 106 24 151/66 (94) 98 07/13/17 20:00 105 07/13/17 19:00 108 138/63 07/13/17 18:00 110 07/13/17 16:00 111 07/13/17 16:00 98.4 111 23 177/71 (106) 100 07/13/17 14:00 109 Intake & Output 07/14/17 07/14/17 07:00 19:00 Intake Total 521 ml Output Total 750 ml Balance -229 ml IV Total 521 ml Output Urine Total 600 ml Drainage Total 150 ml # Bowel Movements 0 Physical Exam CONSTITUTIONAL/GENERAL: This is an adequately nourished patient, awake, confused TUBES/LINES/DRAINS: PIV upper extremities , wick external catheter, NC SKIN: slight jaundice. Few scattered healed round lesions to arms. Skin warm/ dry NECK: Trachea midline. Supple, nontender. No palpable thyroid enlargement or nodularity. CARDIOVASCULAR: Irregular rate and rhythm without murmur, rate 90s. Peripheral pulses symmetric. RESPIRATORY/CHEST: Symmetric, unlabored respirations on NC.Clear to auscultation. Breath sounds equal bilaterally. GASTROINTESTINAL: Abdomen soft, no apparent tenderness, nondistended. No palpable masses. Bowel sounds present.Drain from rt side sm amt brownish yellow present GENITOURINARY: Without palpable bladder distension. external wick catheter in place. NEUROLOGICAL: awake, tracks examiner. Eyes open. Moving all 4 extremities. intermittently following commands. oriented to self, . Limited verbalizations and answers otherwise. Appears confused. PSYCHIATRIC: No obvious anxiety/depression- limited assessment due to clinical condition Diagnostic Tests Laboratory Laboratory Tests Test 07/11/17 13:15 07/12/17 12:30 07/12/17 16:10 07/13/17 06:47 White Blood Count 10.8 TH/MM3 (4.0-11.0) 15.9 TH/MM3 (4.0-11.0) 12.4 TH/MM3 (4.0-11.0) Red Blood Count 4.53 MIL/MM3 (4.00-5.30) 4.65 MIL/MM3 (4.00-5.30) 4.33 MIL/MM3 (4.00-5.30) Hemoglobin 10.2 GM/DL (11.6-15.3) 10.0 GM/DL (11.6-15.3) 9.4 GM/DL (11.6-15.3) Hematocrit 32.9 % (35.0-46.0) 33.8 % (35.0-46.0) 31.3 % (35.0-46.0) Mean Corpuscular Volume 72.7 FL (80.0-100.0) 72.7 FL (80.0-100.0) 72.4 FL (80.0-100.0) Mean Corpuscular Hemoglobin 22.4 PG (27.0-34.0) 21.6 PG (27.0-34.0) 21.6 PG (27.0-34.0) Mean Corpuscular Hemoglobin Concent 30.9 % (32.0-36.0) 29.7 % (32.0-36.0) 29.9 % (32.0-36.0) Red Cell Distribution Width 22.5 % (11.6-17.2) 22.5 % (11.6-17.2) 22.3 % (11.6-17.2) Platelet Count 365 TH/MM3 (150-450) 533 TH/MM3 (150-450) 525 TH/MM3 (150-450) Mean Platelet Volume 8.6 FL (7.0-11.0) 8.3 FL (7.0-11.0) 8.2 FL (7.0-11.0) Neutrophils (%) (Auto) 74.4 % (16.0-70.0) 85.7 % (16.0-70.0) Lymphocytes (%) (Auto) 12.9 % (9.0-44.0) 6.3 % (9.0-44.0) Monocytes (%) (Auto) 11.6 % (0.0-8.0) 7.5 % (0.0-8.0) Eosinophils (%) (Auto) 0.4 % (0.0-4.0) 0.2 % (0.0-4.0) Basophils (%) (Auto) 0.7 % (0.0-2.0) 0.3 % (0.0-2.0) Neutrophils # (Auto) 8.0 TH/MM3 (1.8-7.7) 10.6 TH/MM3 (1.8-7.7) Lymphocytes # (Auto) 1.4 TH/MM3 (1.0-4.8) 0.8 TH/MM3 (1.0-4.8) Monocytes # (Auto) 1.3 TH/MM3 (0-0.9) 0.9 TH/MM3 (0-0.9) Eosinophils # (Auto) 0.0 TH/MM3 (0-0.4) 0.0 TH/MM3 (0-0.4) Basophils # (Auto) 0.1 TH/MM3 (0-0.2) 0.0 TH/MM3 (0-0.2) CBC Comment DIFF FINAL DIFF FINAL Differential Comment Blood Urea Nitrogen 37 MG/DL (7-18) 36 MG/DL (7-18) 34 MG/DL (7-18) Creatinine 0.96 MG/DL (0.50-1.00) 0.99 MG/DL (0.50-1.00) 0.88 MG/DL (0.50-1.00) Random Glucose 103 MG/DL (74-106) 105 MG/DL (74-106) 96 MG/DL (74-106) Total Protein 9.1 GM/DL (6.4-8.2) 8.5 GM/DL (6.4-8.2) Albumin 3.8 GM/DL (3.4-5.0) 3.4 GM/DL (3.4-5.0) Calcium Level 10.5 MG/DL (8.5-10.1) 10.7 MG/DL (8.5-10.1) 10.5 MG/DL (8.5-10.1) Phosphorus Level 4.1 MG/DL (2.5-4.9) 3.5 MG/DL (2.5-4.9) Magnesium Level 2.2 MG/DL (1.5-2.5) 2.0 MG/DL (1.5-2.5) Alkaline Phosphatase 266 U/L (45-117) 256 U/L (45-117) Aspartate Amino Transf (AST/SGOT) 45 U/L (15-37) 48 U/L (15-37) Alanine Aminotransferase (ALT/SGPT) 55 U/L (10-53) 52 U/L (10-53) Total Bilirubin 0.9 MG/DL (0.2-1.0) 0.9 MG/DL (0.2-1.0) Sodium Level 142 MEQ/L (136-145) 143 MEQ/L (136-145) 150 MEQ/L (136-145) Potassium Level 4.2 MEQ/L (3.5-5.1) 4.5 MEQ/L (3.5-5.1) 3.5 MEQ/L (3.5-5.1) Chloride Level 107 MEQ/L (98-107) 108 MEQ/L (98-107) 112 MEQ/L (98-107) Carbon Dioxide Level 24.0 MEQ/L (21.0-32.0) 24.5 MEQ/L (21.0-32.0) 24.3 MEQ/L (21.0-32.0) Anion Gap 11 MEQ/L (5-15) 11 MEQ/L (5-15) 14 MEQ/L (5-15) Estimat Glomerular Filtration Rate 59 ML/MIN (>89) 57 ML/MIN (>89) 66 ML/MIN (>89) Phenytoin (Dilantin) Level 8.3 MCG/ML (10.0-20.0) 5.1 MCG/ML (10.0-20.0) 5.6 MCG/ML (10.0-20.0) Urine Color YELLOW (YELLW/STRAW) Urine Turbidity HAZY (CLEAR) Urine pH 5.5 (5.0-8.5) Urine Specific [place] 1.026 (1.002-1.035) Urine Protein 30 mg/dL (NEG-TRACE) Urine Glucose (UA) NEG mg/dL (NEG) Urine Ketones NEG mg/dL (NEG) Urine Occult Blood NEG (NEG) Urine Nitrite NEG (NEG) Urine Bilirubin NEG (NEG) Urine Urobilinogen LESS THAN 2.0 MG/DL (LESS Urine Leukocyte Esterase NEG (NEG) Urine RBC 2 /hpf (0-3) Urine WBC 1 /hpf (0-5) Urine Squamous Epithelial Cells <1 /hpf (0-5) Urine Uric Acid Crystals RARE /hpf (NONE) Urine Bacteria MOD /hpf (NONE) Microscopic Urinalysis Comment CULTURE INDICATED Result Diagram: 07/13/17 0647 07/13/17 0647 Microbiology Microbiology Date/Time Source Procedure Growth Status 07/12/17 16:10 Urine Random Urine Urine Culture - Final NO GROWTH IN 48 HOURS. Complete Imaging Last Impressions Chest X-Ray 07/13/17 0600 Signed Impressions: Service Date/Time: Thursday, July 13, 2017 05:28 - CONCLUSION: Stable lingular scarring or atelectasis. The remainder of the lungs are clear. Floyd Magallanes MD Abdomen X-Ray 07/12/17 0000 Signed Impressions: Service Date/Time: Wednesday, July 12, 2017 12:26 - CONCLUSION: 1. Cholecystostomy tube. 2. There is only minimal stool evident within the cecum and adjacent colon. No definite findings to indicate constipation identified. King Contreras MD Chest CT 07/07/17 0000 Signed Impressions: Service Date/Time: Friday, July 07, 2017 10:35 - CONCLUSION: 1. Interval resolution of bilateral pleural effusions with improved airspace disease in the lower lobes in comparison to 06/24/2017. 2. Very subtle anterior pericardial effusion. Akira Cullen MD Abdomen/Pelvis CT 07/07/17 0000 Signed Impressions: Service Date/Time: Friday, July 07, 2017 10:35 - CONCLUSION: 1. No loculated fluid collections within the abdomen and pelvis to suggest abscess. Drainage catheter remains in right upper quadrant. 2. Improved basilar airspace consolidation in the lungs since June 24. 3. NG coiled in stomach. Ferguson catheter in decompressed bladder. No bowel obstruction, free fluid or free air. Leandro Palacios MD Brain MRI 06/27/17 0000 Signed Impressions: Service Date/Time: Tuesday, June 27, 2017 10:00 - CONCLUSION: 1. No acute intracranial abnormality. 2. Mild chronic small vessel ischemic change. Floyd Tiwari Jr., MD Head CT 06/24/17 1645 Signed Impressions: Service Date/Time: Saturday, June 24, 2017 18:00 - CONCLUSION: No acute disease. Brian Burnett MD Percutaneous Cholangiogram 06/24/17 0000 Signed Impressions: Service Date/Time: Saturday, June 24, 2017 20:36 - CONCLUSION: Uncomplicated percutaneous cholecystostomy as above. Lalo Wong MD Procedures 07/09 extubated 07/06 extubated- reintubated 07/06 Assessment and Plan Disease Oriented Problem List: (1) Atrial fibrillation with RVR (2) Anemia (3) Pulmonary edema (4) Cholecystitis (5) Cardiomyopathy (6) Acute encephalopathy (7) Hypertension (8) Tachy-joe syndrome (9) Severe mitral regurgitation (10) Diastolic heart failure (11) Sepsis (12) GERD (gastroesophageal reflux disease) Symptom Scale: (1) Dyspnea 0-10 Scale: Unable to quantify (2) Pain 0-10 Scale: Unable to quantify (3) Encephalopathy 0-10 Scale: Unable to quantify Pertinent Non-Medical Issues Psychosocial: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 Spiritual:none listed. Legal:Pt is . Currently has 4 children Billy Mcqueen, Kenneth [phone] Yaneth; [phone] Health care proxy are the 4 children. Ethical issues impacting care:none Important Contacts Son: Kenneth [phone] dtr Yaneth [phone]. dtr Charisse [phone] son Billy [phone] . Prognosis 57 year old prognosis is guarded. Code Status: Full Code Plan ==Code: FULL CODE == Decision maker- pt currently does not capacity to make medical decisions.pt is . [place] advance [place]. [place] proxy would be pt's four children: Kenneth, Yaneth, Charisse, and Billy. (family indicated they are OK w Kenneth serving as spokesperson.) == symptoms: pain- acute cholecystitis, now bedbound. Today endorses some abdominal pain though unable to further qualify. Cautious use opiates 2/ AMS/ encephalopathy,recent medical extubation. dyspnea- on mechanical ventilation--> medically extubated 07/06, tolerating room air-->> later reintubated. CXR some improvement RLL, + consolidation LLL.CT chest neg acute process EXTUBATED again 07/09, tolerating NC encephalopathy- hx ? seizures. ? toxic metabolic encephalopathy.ammonia 07/03 =10. 07/09 -07/13 confused, not consistently following commands/non verbal not answering yes/no appropriately . 07/14 slow , slight improvement, more alert, still confused == goals of care: I reviewed CODE STATUS with patient family multiple times including after most recent extubation. We have reviewed the alternative of ongoing aggressive interventions (including possible tracheostomy, feeding tube ) vs comfort directed treatment. Family has expressed aggressive goals, hoping she will improve, though understand she may not , they are open to ongoing discussion as clinical course evolves. == palliative care will follow to make recommendations for symptoms and to review goals of care as pt's condition evolves. Attestation To help prompt me to consider important information that might be impacting today's encounter and assessment, information from prior notes written by myself or my colleagues may have been "brought forward" into today's note. My signature on this note, however, is an attestation that I personally performed the exam, history, and/or decision-making noted today, and, unless otherwise indicated, the interactions with patient, family, and staff as well as the review of records all occurred today. I also attest that the listed assessment and stated plan reflect my best clinical judgment today based on the combination of historical information, prior notes, and today's exam/ interactions. When time spent is documented, it refers only to time spent today by the signer, or if indicated, combined time spent today by collaborating physician/nurse practitioner. Idalia Riggs Jul 14, 2017 13:04
[2017-07-14 13:43] LABS: AUTOMATED NEUTROPHIL # 8.5 TH/MM3 (1.8-7.7); BASOPHIL % 0.5 % (0.0-2.0); EOSINOPHIL # 0.1 TH/MM3 (0-0.4); EOSINOPHIL % 0.8 % (0.0-4.0); HEMATOCRIT 30.2 % (35.0-46.0); HEMOGLOBIN 9.1 GM/DL (11.6-15.3); LYMPH % 7.6 % (9.0-44.0); LYMPHOCYTE # 0.8 TH/MM3 (1.0-4.8); MEAN CELL VOLUME 72.5 FL (80.0-100.0); MEAN CORPUSCULAR HEMOGLOBIN 21.9 PG (27.0-34.0); MEAN CORPUSCULAR HGB CONC 30.1 % (32.0-36.0); MEAN PLATELET VOLUME 8.3 FL (7.0-11.0); MONOCYTE # 0.8 TH/MM3 (0-0.9); NEUT % 83.1 % (16.0-70.0); PLATELET COUNT 564 TH/MM3 (150-450); RED BLOOD COUNT 4.16 MIL/MM3 (4.00-5.30); RED CELL DISTRIBUTION WIDTH 22.5 % (11.6-17.2); WHITE BLOOD COUNT 10.2 TH/MM3 (4.0-11.0)
[2017-07-14 14:12] LABS: BICARBONATE 23.2 MEQ/L (21.0-32.0); CALCIUM 11.2 MG/DL (8.5-10.1); CREATININE 0.91 MG/DL (0.50-1.00); MAGNESIUM 1.9 MG/DL (1.5-2.5); PHOSPHORUS 3.2 MG/DL (2.5-4.9)
[2017-07-14] MEDS ORDERED: POTASSIUM CHLOR 40 MEQ PREMIX 100 ML IV PRN ×2 (14:45)
[2017-07-14] MEDS ORDERED: SODIUM PHOSPHATE INJ 30 MMOL in SODIUM CHLOR 0.9% 250 ML INJ 240 ML IV PRN (14:45)
[2017-07-14] MEDS ORDERED: POTASSIUM CHLOR 20 MEQ PREMIX 100 ML IV PRN (14:45)
[2017-07-14] MEDS ORDERED: MAGNESIUM SULFATE INJ 2 GM in SODIUM CHLORIDE 0.9% INJ 96 ML IV PRN (14:45)
[2017-07-14] MEDS ORDERED: MAGNESIUM SULFATE INJ 4 GM in SODIUM CHLORIDE 0.9% INJ 92 ML IV PRN (14:45)
[2017-07-14] MEDS ORDERED: MAGNESIUM OXIDE 400 MG TAB PO PRN (14:45)
[2017-07-14] MEDS ORDERED: POTASSIUM PHOSPHATE MONOBASIC 500 MG TAB PO PRN (14:45)
[2017-07-14] MEDS ORDERED: POTASSIUM PHOSPHATE INJ 30 MMOL in SODIUM CHLOR 0.9% 250 ML INJ 250 ML IV PRN (14:45)
[2017-07-14] MEDS ORDERED: POTASSIUM PHOSPHATE MONOBASIC 500 MG TAB PO/TUBE PRN (14:45)
[2017-07-14] MEDS ORDERED: POTASSIUM CHLORIDE 25 MEQ EFFERVESCENT TAB PO PRN (14:45)
--- NOTE | 2017-07-14 14:53 | HHI.IDPN ---
Note Infectious Disease Note ID coverage. Notes reviewed. Patient remains on room air. She is awake and answer simple questions. Still very little verbal communication. No distress. Afebrile. Repeat blood culture on 07/09 - 1 bottle as coag negative staph Previous blood culture on 07/07 had strep species in 1 of 4 bottles. is a 57-year-old with PMHx of COPD, GERD, hypertension, cardiovascular problems that presented to the hospital on 06/23/2017 for complaints of epigastric and abdominal pain, nausea vomiting, shortness of breath. ID following for leucocytosis, acute cholecystitis and pneumonia. Seizure new onset. Antibiotics Unasyn Fluconazole Lines Peripheral line site with no e.o infection Past Medical History reviewed Allergies: Coded Allergies: Sulfa (Sulfonamide Antibiotics) (Verified Allergy, Unknown, 06/23/17) ciprofloxacin (Verified Allergy, Unknown, 06/23/17) hydromorphone (Verified Allergy, Unknown, 06/23/17) Current Medications Medications (Trade) Dose Ordered Sig/Salud Route PRN Reason Start Time Stop Time Status Last Admin Dose Admin Naloxone HCl (Narcan Inj) 0.4 mg UNSCH PRN IV PUSH SEE LABEL COMMENTS 06/23/17 20:30 Sodium Phosphate 30 mmol/Sodium Chloride 250 ml @ 42 mls/hr UNSCH PRN IV For Phosphorus < 2.5 mg/dL 06/24/17 17:00 Potassium Phosphate 30 mmol/ Sodium Chloride 260 ml @ 42 mls/hr UNSCH PRN IV SEE LABEL COMMENTS 06/24/17 17:00 07/11/17 10:32 Dextrose (D50w (Vial) Inj) 50 ml UNSCH PRN IV PUSH HYPOGLYCEMIA-SEE COMMENTS 06/24/17 17:00 07/09/17 15:53 Glucagon (Glucagon Inj) 1 mg UNSCH PRN OTHER HYPOGLYCEMIA-SEE COMMENTS 06/24/17 17:00 Sodium Chloride (NS Flush) 2 ml UNSCH PRN IV FLUSH FLUSH AFTER USING IV ACCESS 06/24/17 17:00 07/08/17 16:58 Sodium Chloride (NS Flush) 2 ml BID IV FLUSH 06/24/17 21:00 07/14/17 08:17 Ondansetron HCl (Zofran Inj) 4 mg Q6H PRN IV PUSH NAUSEA OR VOMITING 06/24/17 17:00 07/05/17 17:24 Albuterol Sulfate (Albuterol Neb) 2.5 mg Q2HR NEB PRN INH SOB/WHEEZING 06/24/17 17:00 07/07/17 20:49 Miscellaneous Information 1 Q361D XX 06/24/17 18:00 Chlorhexidine Gluconate (Chlorhexidine 2% Cloth) 3 pack Taper DAILY@04 TOP 06/25/17 04:00 06/21/18 03:59 07/13/17 03:31 Chlorhexidine Gluconate (Chlorhexidine 2% Cloth) 3 pack UNSCH PRN TOP HYGIENIC CARE 06/24/17 17:00 Senna/Docusate Sodium (Keiry-Colace) 1 tab BID PO 06/24/17 21:00 07/14/17 08:18 Sennosides (Senokot) 17.2 mg Q12H PRN PO Moderate constipation 06/24/17 17:00 Bisacodyl (Dulcolax Supp) 10 mg DAILY PRN RECTAL SEVERE CONSITIPATION 06/24/17 17:00 Lactulose (Lactulose Liq) 30 ml DAILY PRN PO SEVERE CONSITIPATION 06/24/17 17:00 07/10/17 17:27 Chlorhexidine Gluconate (Peridex 0.12% Liq) 15 ml BID@08,20 MT 06/24/17 20:00 07/11/17 08:00 Terbutaline Sulfate (Brethine Inj) 1 mg UNSCH PRN SQ For Extravasation 06/24/17 19:30 Acetaminophen (Tylenol 650 Mg/ 20 ml Liq) 650 mg Q6H PRN NG fever 06/25/17 08:45 07/12/17 15:40 Amiodarone HCl (Cordarone) 200 mg Q12HR PO 06/29/17 16:00 Future Hold 07/11/17 09:44 Metoprolol Tartrate (Lopressor Inj) 2.5 mg Q6H PRN IV PUSH RAPID HEART RATE 06/30/17 09:45 07/11/17 05:01 Labetalol HCl (Trandate Inj) 10 mg Q4H PRN IV PUSH SBP>160, DBP>90 07/02/17 16:45 07/13/17 16:16 Nystatin (Mycostatin Liq) 5 ml QID SWISH-SWAL 07/04/17 09:00 07/18/17 09:00 07/14/17 13:08 Racepinephrine (Racepinephrine 2.25% Neb) 0.5 ml Q3HR NEB PRN NEB stridor 07/08/17 12:30 07/09/17 10:43 Fosphenytoin Sodium (Cerebyx Inj) 150 mgpe Q8HR IV 07/08/17 14:00 07/13/17 21:54 Fluconazole (Diflucan) 100 mg DAILY PO 07/10/17 09:00 07/14/17 08:18 Ampicillin Sodium/ Sulbactam Sodium 3 gm/Sodium Chloride 100 ml @ 200 mls/hr Q6H IV 07/10/17 14:00 07/14/17 08:17 Albuterol/ Ipratropium (Duoneb Neb) 1 ampule Q4HR NEB NEB 07/10/17 16:00 07/14/17 08:08 Amiodarone HCl 450 mg/Sodium Chloride 250 ml @ 33.33 mls/ hr Q7H31M PRN IV Per Protocol 07/11/17 10:15 07/14/17 00:14 Insulin Human Regular (NovoLIN R SUPPLEMENTAL SCALE) 1 ACHS SQ 07/12/17 12:00 Metoprolol Tartrate (Lopressor) 50 mg Q6HR PO 07/12/17 12:00 07/14/17 13:07 Enoxaparin Sodium (Lovenox Inj) 65 mg BID SQ 07/12/17 21:00 07/14/17 08:18 Levetriacetam (Keppra) 500 mg Q12HR PO 07/12/17 21:00 07/14/17 08:18 Pantoprazole Sodium (Protonix) 40 mg DAILY PO 07/13/17 09:00 07/14/17 08:17 Diltiazem HCl (Cardizem) 60 mg Q6HR PO 07/13/17 12:00 07/14/17 13:07 Lisinopril (Prinivil) 2.5 mg DAILY PO 07/14/17 09:00 07/14/17 08:18 Miscellaneous (Pill Splitter) 1 ea UNSCH PRN OTHER SEE LABEL COMMENTS 07/13/17 14:00 Objective Vital Signs Date Time Temp Pulse Resp B/P (MAP) Pulse Ox O2 Delivery O2 Flow Rate FiO2 07/14/17 08:11 99 21 07/14/17 06:00 104 07/14/17 04:00 93 07/14/17 04:00 98.7 93 19 158/79 (105) 98 07/14/17 02:00 91 07/14/17 00:14 93 165/69 07/14/17 00:00 98.8 100 22 165/69 (101) 100 07/14/17 00:00 100 07/13/17 22:00 122 07/13/17 20:48 97 21 07/13/17 20:00 98.6 106 24 151/66 (94) 98 07/13/17 20:00 105 07/13/17 19:00 108 138/63 07/13/17 18:00 110 07/13/17 16:00 111 07/13/17 16:00 98.4 111 23 177/71 (106) 100 Laboratory Tests Test 07/13/17 06:47 07/14/17 12:05 White Blood Count 12.4 TH/MM3 10.2 TH/MM3 Red Blood Count 4.33 MIL/MM3 4.16 MIL/MM3 Hemoglobin 9.4 GM/DL 9.1 GM/DL Hematocrit 31.3 % 30.2 % Mean Corpuscular Volume 72.4 FL 72.5 FL Mean Corpuscular Hemoglobin 21.6 PG 21.9 PG Mean Corpuscular Hemoglobin Concent 29.9 % 30.1 % Red Cell Distribution Width 22.3 % 22.5 % Platelet Count 525 TH/MM3 564 TH/MM3 Mean Platelet Volume 8.2 FL 8.3 FL Neutrophils (%) (Auto) 85.7 % 83.1 % Lymphocytes (%) (Auto) 6.3 % 7.6 % Monocytes (%) (Auto) 7.5 % 8.0 % Eosinophils (%) (Auto) 0.2 % 0.8 % Basophils (%) (Auto) 0.3 % 0.5 % Neutrophils # (Auto) 10.6 TH/MM3 8.5 TH/MM3 Lymphocytes # (Auto) 0.8 TH/MM3 0.8 TH/MM3 Monocytes # (Auto) 0.9 TH/MM3 0.8 TH/MM3 Eosinophils # (Auto) 0.0 TH/MM3 0.1 TH/MM3 Basophils # (Auto) 0.0 TH/MM3 0.0 TH/MM3 CBC Comment DIFF FINAL DIFF FINAL Differential Comment Laboratory Tests Test 07/13/17 06:47 07/14/17 12:05 Blood Urea Nitrogen 34 MG/DL 33 MG/DL Creatinine 0.88 MG/DL 0.91 MG/DL Random Glucose 96 MG/DL 89 MG/DL Total Protein 8.5 GM/DL Albumin 3.4 GM/DL Calcium Level 10.5 MG/DL 11.2 MG/DL Phosphorus Level 3.5 MG/DL 3.2 MG/DL Magnesium Level 2.0 MG/DL 1.9 MG/DL Alkaline Phosphatase 256 U/L Aspartate Amino Transf (AST/SGOT) 48 U/L Alanine Aminotransferase (ALT/SGPT) 52 U/L Total Bilirubin 0.9 MG/DL Sodium Level 150 MEQ/L 150 MEQ/L Potassium Level 3.5 MEQ/L 3.1 MEQ/L Chloride Level 112 MEQ/L 115 MEQ/L Carbon Dioxide Level 24.3 MEQ/L 23.2 MEQ/L Anion Gap 14 MEQ/L 12 MEQ/L Estimat Glomerular Filtration Rate 66 ML/MIN 63 ML/MIN B-Type Natriuretic Peptide 183 PG/ML Microbiology Date/Time Source Procedure Growth Status 07/12/17 16:10 Urine Random Urine Urine Culture - Final NO GROWTH IN 48 HOURS. Complete Imaging reviewed Chest X-Ray 07/13/17 0600 Signed Impressions: Service Date/Time: Thursday, July 13, 2017 05:28 - CONCLUSION: Stable lingular scarring or atelectasis. The remainder of the lungs are clear. Floyd Magallanes MD Chest X-Ray 07/11/17 0600 Signed Impressions: Service Date/Time: Tuesday, July 11, 2017 04:27 - CONCLUSION: Stable chest. Augustus Garcia MD Chest X-Ray 07/10/17 0600 Signed Impressions: Service Date/Time: Monday, July 10, 2017 04:00 - CONCLUSION: 1. Linear atelectatic changes in the left lower lobe/lingular region. Lungs are otherwise clear. 2. Interval removal of the endotracheal and nasogastric tubes. Augustus Garcia MD Chest CT 07/07/17 0000 Signed Impressions: Service Date/Time: Friday, July 07, 2017 10:35 - CONCLUSION: 1. Interval resolution of bilateral pleural effusions with improved airspace disease in the lower lobes in comparison to 06/24/2017. 2. Very subtle anterior pericardial effusion. Akira Cullen MD Abdomen/Pelvis CT 07/07/17 0000 Signed Impressions: Service Date/Time: Friday, July 07, 2017 10:35 - CONCLUSION: 1. No loculated fluid collections within the abdomen and pelvis to suggest abscess. Drainage catheter remains in right upper quadrant. 2. Improved basilar airspace consolidation in the lungs since June 24. 3. NG coiled in stomach. Ferguson catheter in decompressed bladder. No bowel obstruction, free fluid or free air. Leandro Palacios MD Chest X-Ray 07/06/17 0600 Signed Impressions: Service Date/Time: Thursday, July 06, 2017 03:59 - CONCLUSION: Resolution of the right lower lobe infiltrate. More focal consolidation now seen involving the left lower lobe. Floyd Tiwari Jr., MD Brain MRI 06/27/17 0000 Signed Impressions: Service Date/Time: Tuesday, June 27, 2017 10:00 - CONCLUSION: 1. No acute intracranial abnormality. 2. Mild chronic small vessel ischemic change. Floyd Tiwari Jr., MD Head CT 06/24/17 1645 Signed Impressions: Service Date/Time: Saturday, June 24, 2017 18:00 - CONCLUSION: No acute disease. Brian Burnett MD Percutaneous Cholangiogram 06/24/17 0000 Signed Impressions: Service Date/Time: Saturday, June 24, 2017 20:36 - CONCLUSION: Uncomplicated percutaneous cholecystostomy as above. Lalo Wong MD Physical Exam GENERAL: No acute distress. HEENT: Pupils reactive to light. Extraocular movements intact. No icterus. NECK: Supple without adenopathy. No swelling. LUNGS: Clear decreased breath sounds. HEART: Regular S1-S2. No murmurs or rubs or gallops. ABDOMEN: Coarse sounds present, soft, nontender. EXTREMITIES: No clubbing cyanosis or edema. SKIN: No rash. NEUROLOGIC: No gross focal findings. PSYCH: Calm and cooperative. She appears withdrawn. Assessment Severe Sepsis present on admission. Improved. Pneumonia ? HCAP vs aspiration in health care setting. Acute cholecystitis s/p cholecystostomy tube placement. Seizure new onset ? alcohol related. Fevers: ? drug fever ? Vanco IV vs new infection. Normal WBC at time of initial consult. Acute resp failure. Post ventilator. Extubated. Acute metabolic encephalopathy: sepsis, seizures, metabolic. Acute renal failure: ? lasix, prerenal. Kidney function improved. Patient is clinically stable. Recommendations Stop Unasyn. Continue Diflucan until 07/17. Monitor clinical status. Trenton Gómez MD Jul 14, 2017 14:53
--- NOTE | 2017-07-14 15:32 | PD.CARD.PN ---
Subjective Subjective Remarks appears lucid in nad Objective Medications Current Medications Medications (Trade) Dose Ordered Sig/Salud Route Start Time Stop Time Status Last Admin (Narcan Inj) 0.4 mg UNSCH PRN IV PUSH 06/23/17 20:30 (D50w (Vial) Inj) 50 ml UNSCH PRN IV PUSH 06/24/17 17:00 07/09/17 15:53 (Glucagon Inj) 1 mg UNSCH PRN OTHER 06/24/17 17:00 (NS Flush) 2 ml UNSCH PRN IV FLUSH 06/24/17 17:00 07/08/17 16:58 (NS Flush) 2 ml BID IV FLUSH 06/24/17 21:00 07/14/17 08:17 (Zofran Inj) 4 mg Q6H PRN IV PUSH 06/24/17 17:00 07/05/17 17:24 (Albuterol Neb) 2.5 mg Q2HR NEB PRN INH 06/24/17 17:00 07/07/17 20:49 Miscellaneous Information 1 Q361D XX 06/24/17 18:00 (Chlorhexidine 2% Cloth) 3 pack Taper DAILY@04 TOP 06/25/17 04:00 06/21/18 03:59 07/13/17 03:31 (Chlorhexidine 2% Cloth) 3 pack UNSCH PRN TOP 06/24/17 17:00 (Keiry-Colace) 1 tab BID PO 06/24/17 21:00 07/14/17 08:18 (Senokot) 17.2 mg Q12H PRN PO 06/24/17 17:00 (Dulcolax Supp) 10 mg DAILY PRN RECTAL 06/24/17 17:00 (Lactulose Liq) 30 ml DAILY PRN PO 06/24/17 17:00 07/10/17 17:27 (Peridex 0.12% Liq) 15 ml BID@08,20 MT 06/24/17 20:00 07/11/17 08:00 (Brethine Inj) 1 mg UNSCH PRN SQ 06/24/17 19:30 (Tylenol 650 Mg/ 20 ml Liq) 650 mg Q6H PRN NG 06/25/17 08:45 07/12/17 15:40 (Cordarone) 200 mg Q12HR PO 06/29/17 16:00 Future Hold 07/11/17 09:44 (Lopressor Inj) 2.5 mg Q6H PRN IV PUSH 06/30/17 09:45 07/11/17 05:01 (Trandate Inj) 10 mg Q4H PRN IV PUSH 07/02/17 16:45 07/13/17 16:16 (Mycostatin Liq) 5 ml QID SWISH-SWAL 07/04/17 09:00 07/18/17 09:00 07/14/17 13:08 (Racepinephrine 2.25% Neb) 0.5 ml Q3HR NEB PRN NEB 07/08/17 12:30 07/09/17 10:43 (Cerebyx Inj) 150 mgpe Q8HR IV 07/08/17 14:00 07/14/17 14:46 (Diflucan) 100 mg DAILY PO 07/10/17 09:00 07/14/17 08:18 Ampicillin Sodium/ Sulbactam Sodium 3 gm/Sodium Chloride 100 ml @ 200 mls/hr Q6H IV 07/10/17 14:00 07/17/17 16:00 07/14/17 15:02 (Duoneb Neb) 1 ampule Q4HR NEB NEB 07/10/17 16:00 07/14/17 08:08 (NovoLIN R SUPPLEMENTAL SCALE) 1 ACHS SQ 07/12/17 12:00 (Lopressor) 50 mg Q6HR PO 07/12/17 12:00 07/14/17 13:07 (Lovenox Inj) 65 mg BID SQ 07/12/17 21:00 07/14/17 08:18 (Keppra) 500 mg Q12HR PO 07/12/17 21:00 07/14/17 08:18 (Protonix) 40 mg DAILY PO 07/13/17 09:00 07/14/17 08:17 (Cardizem) 60 mg Q6HR PO 07/13/17 12:00 07/14/17 13:07 (Prinivil) 2.5 mg DAILY PO 07/14/17 09:00 07/14/17 08:18 (Pill Splitter) 1 ea UNSCH PRN OTHER 07/13/17 14:00 Potassium Chloride 100 ml @ 50 mls/hr Q2H PRN IV 07/14/17 14:45 Potassium Chloride 100 ml @ 50 mls/hr Q2H PRN IV 07/14/17 14:45 (K-Lyte Cl Eff) 50 meq UNSCH PRN PO 07/14/17 14:45 Potassium Chloride 100 ml @ 25 mls/hr UNSCH PRN IV 07/14/17 14:45 Potassium Chloride 100 ml @ 50 mls/hr Q2H PRN IV 07/14/17 14:45 Magnesium Sulfate 4 gm/Sodium Chloride 100 ml @ 50 mls/hr UNSCH PRN IV 07/14/17 14:45 (Mag-Ox) 800 mg UNSCH PRN PO 07/14/17 14:45 Magnesium Sulfate 2 gm/Sodium Chloride 100 ml @ 50 mls/hr UNSCH PRN IV 07/14/17 14:45 (K-Phos) 2,000 mg Q4H PRN PO 07/14/17 14:45 Sodium Phosphate 30 mmol/Sodium Chloride 250 ml @ 42 mls/hr UNSCH PRN IV 07/14/17 14:45 (K-Phos) 2,000 mg UNSCH PRN PO/TUBE 07/14/17 14:45 Potassium Phosphate 30 mmol/ Sodium Chloride 260 ml @ 42 mls/hr UNSCH PRN IV 07/14/17 14:45 Vital Signs / I&O Vital Signs Date Time Temp Pulse Resp B/P (MAP) Pulse Ox O2 Delivery O2 Flow Rate FiO2 07/14/17 08:11 99 21 07/14/17 06:00 104 07/14/17 04:00 93 07/14/17 04:00 98.7 93 19 158/79 (105) 98 07/14/17 02:00 91 07/14/17 00:14 93 165/69 07/14/17 00:00 98.8 100 22 165/69 (101) 100 07/14/17 00:00 100 07/13/17 22:00 122 07/13/17 20:48 97 21 07/13/17 20:00 98.6 106 24 151/66 (94) 98 07/13/17 20:00 105 07/13/17 19:00 108 138/63 07/13/17 18:00 110 07/13/17 16:00 111 07/13/17 16:00 98.4 111 23 177/71 (106) 100 I/O 07/13/17 07/13/17 07/13/17 07/14/17 07/14/17 07/14/17 07:00 15:00 23:00 07:00 15:00 23:00 Intake Total 810 ml 300 ml 421 ml Output Total 470 ml 100 ml 750 ml Balance 340 ml 200 ml -329 ml Intake Oral 460 ml IV Total 350 ml 300 ml 421 ml Output Urine Total 400 ml 100 ml 600 ml Drainage Total 70 ml 150 ml # Voids 3 2 # Bowel Movements 0 0 Physical Exam GENERAL: SKIN: Warm and dry. HEAD: Normocephalic. EYES: No scleral icterus. No injection or drainage. NECK: Supple, trachea midline. No JVD or lymphadenopathy. CARDIOVASCULAR: Regular rate and rhythm without murmurs, gallops, or rubs. RESPIRATORY: Breath sounds equal bilaterally. No accessory muscle use. GASTROINTESTINAL: Abdomen soft, non-tender, nondistended. MUSCULOSKELETAL: No cyanosis, or edema. BACK: Nontender without obvious deformity. No CVA tenderness. Laboratory Laboratory Tests Test 07/14/17 12:05 White Blood Count 10.2 TH/MM3 Red Blood Count 4.16 MIL/MM3 Hemoglobin 9.1 GM/DL Hematocrit 30.2 % Mean Corpuscular Volume 72.5 FL Mean Corpuscular Hemoglobin 21.9 PG Mean Corpuscular Hemoglobin Concent 30.1 % Red Cell Distribution Width 22.5 % Platelet Count 564 TH/MM3 Mean Platelet Volume 8.3 FL Neutrophils (%) (Auto) 83.1 % Lymphocytes (%) (Auto) 7.6 % Monocytes (%) (Auto) 8.0 % Eosinophils (%) (Auto) 0.8 % Basophils (%) (Auto) 0.5 % Neutrophils # (Auto) 8.5 TH/MM3 Lymphocytes # (Auto) 0.8 TH/MM3 Monocytes # (Auto) 0.8 TH/MM3 Eosinophils # (Auto) 0.1 TH/MM3 Basophils # (Auto) 0.0 TH/MM3 CBC Comment DIFF FINAL Differential Comment Blood Urea Nitrogen 33 MG/DL Creatinine 0.91 MG/DL Random Glucose 89 MG/DL Calcium Level 11.2 MG/DL Phosphorus Level 3.2 MG/DL Magnesium Level 1.9 MG/DL Sodium Level 150 MEQ/L Potassium Level 3.1 MEQ/L Chloride Level 115 MEQ/L Carbon Dioxide Level 23.2 MEQ/L Anion Gap 12 MEQ/L Estimat Glomerular Filtration Rate 63 ML/MIN B-Type Natriuretic Peptide 183 PG/ML Phenytoin (Dilantin) Level 6.0 MCG/ML Assessment and Plan Problem List: (1) Sepsis ICD Codes: A41.9 - Sepsis, unspecified organism (2) Cardiomyopathy ICD Codes: I42.9 - Cardiomyopathy, unspecified (3) Mitral regurgitation ICD Codes: I34.0 - Nonrheumatic mitral (valve) insufficiency (4) Bradycardia ICD Codes: R00.1 - Bradycardia, unspecified (5) Atrial fibrillation with RVR ICD Codes: I48.91 - Unspecified atrial fibrillation Status: Acute (6) Anemia ICD Codes: D64.9 - Anemia, unspecified Status: Acute (7) Pulmonary edema ICD Codes: J81.1 - Chronic pulmonary edema (8) Cholecystitis ICD Codes: K81.9 - Cholecystitis, unspecified Assessment and Plan 1.) Cardiomyopathy - on lopressor, lisinopril 2.) Afib - re consult Dr Arellano, due to tachy-joe syndrome, tolerating lopressor, cardizem and lovenox, on po and rec dc iv amio, d/w Dr Roa and nurse 3.) Severe mr - f/u ct surgery to determine if patient is a surgical candidate for potential mvr and cath if/when she is hemodynamically stable, patient consents and rx plan for cholecystitis defined Problem Qualifiers (1) Anemia: Qualified Codes: D64.9 - Anemia, unspecified Gianni Jeffers MD Jul 14, 2017 15:31
[2017-07-14] MEDS: POTASSIUM CHLOR 20 MEQ PREMIX 100 ML IV PRN ×2 (16:43→18:48)
[2017-07-15] VITALS (15 sets, daily range): BP systolic 146–226; BP diastolic 59–98; PULSE 82–111; RESP 17–25; TEMP 97.6–98.7; O2SAT 91–100
[2017-07-15] MEDS: AMPICILLIN-SULBACTAM INJ 3 GM in SODIUM CHLORIDE 0.9% INJ 100 ML IV SCH ×4 (02:10→20:36)
[2017-07-15] MEDS: METOPROLOL TARTRATE 50 MG TAB PO SCH ×3 (05:10→17:39)
[2017-07-15] MEDS: FOSPHENYTOIN SODIUM 100 MG PE/2 ML VIAL IV SCH (05:10)
[2017-07-15] MEDS: DILTIAZEM HCL 60 MG TAB PO SCH (05:10)
--- NOTE | 2017-07-15 07:41 | PD.CARD.PN ---
Subjective Subjective Remarks Lethargic this morning, remains slightly confused, denies pain. Objective Medications Current Medications Medications (Trade) Dose Ordered Sig/Salud Route Start Time Stop Time Status Last Admin (Narcan Inj) 0.4 mg UNSCH PRN IV PUSH 06/23/17 20:30 (D50w (Vial) Inj) 50 ml UNSCH PRN IV PUSH 06/24/17 17:00 07/09/17 15:53 (Glucagon Inj) 1 mg UNSCH PRN OTHER 06/24/17 17:00 (NS Flush) 2 ml UNSCH PRN IV FLUSH 06/24/17 17:00 07/08/17 16:58 (NS Flush) 2 ml BID IV FLUSH 06/24/17 21:00 07/14/17 19:55 (Zofran Inj) 4 mg Q6H PRN IV PUSH 06/24/17 17:00 07/05/17 17:24 (Albuterol Neb) 2.5 mg Q2HR NEB PRN INH 06/24/17 17:00 07/07/17 20:49 Miscellaneous Information 1 Q361D XX 06/24/17 18:00 (Chlorhexidine 2% Cloth) 3 pack Taper DAILY@04 TOP 06/25/17 04:00 06/21/18 03:59 07/14/17 22:00 (Chlorhexidine 2% Cloth) 3 pack UNSCH PRN TOP 06/24/17 17:00 (Keiry-Colace) 1 tab BID PO 06/24/17 21:00 07/14/17 19:54 (Senokot) 17.2 mg Q12H PRN PO 06/24/17 17:00 (Dulcolax Supp) 10 mg DAILY PRN RECTAL 06/24/17 17:00 (Lactulose Liq) 30 ml DAILY PRN PO 06/24/17 17:00 07/10/17 17:27 (Peridex 0.12% Liq) 15 ml BID@08,20 MT 06/24/17 20:00 07/14/17 19:55 (Brethine Inj) 1 mg UNSCH PRN SQ 06/24/17 19:30 (Tylenol 650 Mg/ 20 ml Liq) 650 mg Q6H PRN NG 06/25/17 08:45 07/12/17 15:40 (Cordarone) 200 mg Q12HR PO 06/29/17 16:00 Future Hold 07/11/17 09:44 (Lopressor Inj) 2.5 mg Q6H PRN IV PUSH 06/30/17 09:45 07/11/17 05:01 (Trandate Inj) 10 mg Q4H PRN IV PUSH 07/02/17 16:45 07/13/17 16:16 (Mycostatin Liq) 5 ml QID SWISH-SWAL 07/04/17 09:00 07/18/17 09:00 07/14/17 19:54 (Racepinephrine 2.25% Neb) 0.5 ml Q3HR NEB PRN NEB 07/08/17 12:30 07/09/17 10:43 (Cerebyx Inj) 150 mgpe Q8HR IV 07/08/17 14:00 07/15/17 05:10 (Diflucan) 100 mg DAILY PO 07/10/17 09:00 07/14/17 08:18 Ampicillin Sodium/ Sulbactam Sodium 3 gm/Sodium Chloride 100 ml @ 200 mls/hr Q6H IV 07/10/17 14:00 07/17/17 16:00 07/15/17 02:10 (NovoLIN R SUPPLEMENTAL SCALE) 1 ACHS SQ 07/12/17 12:00 (Lopressor) 50 mg Q6HR PO 07/12/17 12:00 07/15/17 05:10 (Lovenox Inj) 65 mg BID SQ 07/12/17 21:00 07/14/17 19:55 (Keppra) 500 mg Q12HR PO 07/12/17 21:00 07/14/17 20:02 (Protonix) 40 mg DAILY PO 07/13/17 09:00 07/14/17 08:17 (Cardizem) 60 mg Q6HR PO 07/13/17 12:00 07/15/17 05:10 (Prinivil) 2.5 mg DAILY PO 07/14/17 09:00 07/14/17 08:18 (Pill Splitter) 1 ea UNSCH PRN OTHER 07/13/17 14:00 Potassium Chloride 100 ml @ 50 mls/hr Q2H PRN IV 07/14/17 14:45 Potassium Chloride 100 ml @ 50 mls/hr Q2H PRN IV 07/14/17 14:45 07/14/17 18:48 (K-Lyte Cl Eff) 50 meq UNSCH PRN PO 07/14/17 14:45 Potassium Chloride 100 ml @ 25 mls/hr UNSCH PRN IV 07/14/17 14:45 Potassium Chloride 100 ml @ 50 mls/hr Q2H PRN IV 07/14/17 14:45 Magnesium Sulfate 4 gm/Sodium Chloride 100 ml @ 50 mls/hr UNSCH PRN IV 07/14/17 14:45 (Mag-Ox) 800 mg UNSCH PRN PO 07/14/17 14:45 Magnesium Sulfate 2 gm/Sodium Chloride 100 ml @ 50 mls/hr UNSCH PRN IV 07/14/17 14:45 (K-Phos) 2,000 mg Q4H PRN PO 07/14/17 14:45 Sodium Phosphate 30 mmol/Sodium Chloride 250 ml @ 42 mls/hr UNSCH PRN IV 07/14/17 14:45 (K-Phos) 2,000 mg UNSCH PRN PO/TUBE 07/14/17 14:45 Potassium Phosphate 30 mmol/ Sodium Chloride 260 ml @ 42 mls/hr UNSCH PRN IV 07/14/17 14:45 Vital Signs / I&O Vital Signs Date Time Temp Pulse Resp B/P (MAP) Pulse Ox O2 Delivery O2 Flow Rate FiO2 07/15/17 06:00 98 07/15/17 04:00 98.3 92 21 175/78 (110) 93 07/15/17 04:00 92 07/15/17 02:00 95 07/15/17 00:00 97.9 94 21 187/97 (127) 93 07/15/17 00:00 95 07/14/17 22:00 91 07/14/17 20:00 99 07/14/17 20:00 98.3 92 21 144/65 (91) 93 07/14/17 19:05 94 21 07/14/17 19:00 99 07/14/17 18:00 106 07/14/17 17:00 90 07/14/17 16:00 98.0 91 25 130/76 (94) 80 07/14/17 16:00 91 07/14/17 15:00 84 07/14/17 14:00 98 07/14/17 13:00 90 07/14/17 12:00 98.3 93 21 144/65 (91) 93 07/14/17 12:00 93 07/14/17 11:00 103 07/14/17 10:00 105 07/14/17 09:00 99 07/14/17 08:11 99 21 07/14/17 08:00 98.1 83 18 141/88 (105) 99 07/14/17 08:00 83 I/O 07/14/17 07/14/17 07/14/17 07/15/17 07/15/17 07/15/17 07:00 15:00 23:00 07:00 15:00 23:00 Intake Total 421 ml 100 ml 900 ml 240 ml Output Total 750 ml 100 ml 150 ml Balance -329 ml 100 ml 800 ml 90 ml Intake Oral 350 ml 240 ml IV Total 421 ml 100 ml 550 ml Output Urine Total 600 ml 100 ml 150 ml Drainage Total 150 ml # Voids 2 3 # Bowel Movements 0 3 Physical Exam GENERAL: Well-nourished, well-developed patient. SKIN: Warm and dry. HEAD: Normocephalic. EYES: No scleral icterus. No injection or drainage. NECK: Supple, trachea midline. No JVD or lymphadenopathy. CARDIOVASCULAR: S1, S2, irregular rhythm, controlled rate, no rub murmur or gallop. RESPIRATORY: Breath sounds equal bilaterally. No accessory muscle use. GASTROINTESTINAL: Abdomen soft, non-tender, nondistended. EXTREMITIES: No cyanosis, or edema. NEUROLOGICAL: Lethargic, answers slowly, it appears to have difficulty comprehending. Moving all extremities. Laboratory Laboratory Tests Test 07/14/17 12:05 White Blood Count 10.2 TH/MM3 Red Blood Count 4.16 MIL/MM3 Hemoglobin 9.1 GM/DL Hematocrit 30.2 % Mean Corpuscular Volume 72.5 FL Mean Corpuscular Hemoglobin 21.9 PG Mean Corpuscular Hemoglobin Concent 30.1 % Red Cell Distribution Width 22.5 % Platelet Count 564 TH/MM3 Mean Platelet Volume 8.3 FL Neutrophils (%) (Auto) 83.1 % Lymphocytes (%) (Auto) 7.6 % Monocytes (%) (Auto) 8.0 % Eosinophils (%) (Auto) 0.8 % Basophils (%) (Auto) 0.5 % Neutrophils # (Auto) 8.5 TH/MM3 Lymphocytes # (Auto) 0.8 TH/MM3 Monocytes # (Auto) 0.8 TH/MM3 Eosinophils # (Auto) 0.1 TH/MM3 Basophils # (Auto) 0.0 TH/MM3 CBC Comment DIFF FINAL Differential Comment Blood Urea Nitrogen 33 MG/DL Creatinine 0.91 MG/DL Random Glucose 89 MG/DL Calcium Level 11.2 MG/DL Phosphorus Level 3.2 MG/DL Magnesium Level 1.9 MG/DL Sodium Level 150 MEQ/L Potassium Level 3.1 MEQ/L Chloride Level 115 MEQ/L Carbon Dioxide Level 23.2 MEQ/L Anion Gap 12 MEQ/L Estimat Glomerular Filtration Rate 63 ML/MIN B-Type Natriuretic Peptide 183 PG/ML Phenytoin (Dilantin) Level 6.0 MCG/ML Imaging Last Impressions Chest X-Ray 07/13/17 0600 Signed Impressions: Service Date/Time: Thursday, July 13, 2017 05:28 - CONCLUSION: Stable lingular scarring or atelectasis. The remainder of the lungs are clear. Floyd Magallanes MD Abdomen X-Ray 07/12/17 0000 Signed Impressions: Service Date/Time: Wednesday, July 12, 2017 12:26 - CONCLUSION: 1. Cholecystostomy tube. 2. There is only minimal stool evident within the cecum and adjacent colon. No definite findings to indicate constipation identified. King Contreras MD Chest CT 07/07/17 0000 Signed Impressions: Service Date/Time: Friday, July 07, 2017 10:35 - CONCLUSION: 1. Interval resolution of bilateral pleural effusions with improved airspace disease in the lower lobes in comparison to 06/24/2017. 2. Very subtle anterior pericardial effusion. Akira Cullen MD Abdomen/Pelvis CT 07/07/17 0000 Signed Impressions: Service Date/Time: Friday, July 07, 2017 10:35 - CONCLUSION: 1. No loculated fluid collections within the abdomen and pelvis to suggest abscess. Drainage catheter remains in right upper quadrant. 2. Improved basilar airspace consolidation in the lungs since June 24. 3. NG coiled in stomach. Ferguson catheter in decompressed bladder. No bowel obstruction, free fluid or free air. Leandro Palacios MD Brain MRI 06/27/17 0000 Signed Impressions: Service Date/Time: Tuesday, June 27, 2017 10:00 - CONCLUSION: 1. No acute intracranial abnormality. 2. Mild chronic small vessel ischemic change. Floyd Tiwari Jr., MD Head CT 06/24/17 1645 Signed Impressions: Service Date/Time: Saturday, June 24, 2017 18:00 - CONCLUSION: No acute disease. Brian Burnett MD Percutaneous Cholangiogram 06/24/17 0000 Signed Impressions: Service Date/Time: Saturday, June 24, 2017 20:36 - CONCLUSION: Uncomplicated percutaneous cholecystostomy as above. Lalo Wnog MD Assessment and Plan Problem List: (1) Mitral regurgitation ICD Codes: I34.0 - Nonrheumatic mitral (valve) insufficiency Plan: Plan per CV surgery. (2) Bradycardia ICD Codes: R00.1 - Bradycardia, unspecified Plan: No bradycardia or pauses seen on telemetry history and review. Heart rate controlled at this time on current medications. Continue current therapy per my discussion with Dr. Arellano. (3) Atrial fibrillation with RVR ICD Codes: I48.91 - Unspecified atrial fibrillation Status: Acute Plan: Remains in atrial fibrillation, heart rate controlled. On enoxaparin for thromboembolic prophylaxis. Dorie Gallegos Jul 15, 2017 07:41
[2017-07-15] MEDS: INSULIN NovoLIN REGULAR SUPPLEMENTAL SCALE SQ SCH ×4 (07:49→21:00)
[2017-07-15] MEDS: CHLORHEXIDINE 0.12% (ORAL KIT) 15 ML CUP MT SCH ×2 (07:49→20:00)
[2017-07-15] MEDS: LISINOPRIL 5 MG TAB PO SCH (07:50)
[2017-07-15] MEDS: SODIUM CHLORIDE 0.9% FLUSH 10 ML FLUSH IV FLUSH SCH ×2 (07:50→21:00)
[2017-07-15] MEDS: PANTOPRAZOLE SOD 40 MG DELAYED RELEASE TAB PO SCH (07:50)
[2017-07-15] MEDS: levETIRAcetam 500 MG TAB PO SCH ×2 (07:50→20:35)
[2017-07-15] MEDS: DOCUSATE SODIUM 50 MG/SENNA 8.6 MG TAB PO SCH ×2 (07:50→20:35)
[2017-07-15] MEDS: FLUCONAZOLE 100 MG TAB PO SCH (07:50)
[2017-07-15] MEDS: ENOXAPARIN SODIUM 80 MG/0.8 ML SYRINGE SQ SCH ×2 (07:51→20:36)
[2017-07-15] MEDS: NYSTATIN SUSP 500,000 U/5 ML CUP SWISH-SWAL SCH ×4 (07:51→21:00)
[2017-07-15 08:05] LABS: AUTOMATED NEUTROPHIL # 5.2 TH/MM3 (1.8-7.7); BASOPHIL % 0.5 % (0.0-2.0); EOSINOPHIL # 0.1 TH/MM3 (0-0.4); EOSINOPHIL % 1.1 % (0.0-4.0); HEMATOCRIT 31.5 % (35.0-46.0); HEMOGLOBIN 9.4 GM/DL (11.6-15.3); LYMPH % 13.4 % (9.0-44.0); LYMPHOCYTE # 0.9 TH/MM3 (1.0-4.8); MEAN CELL VOLUME 73.9 FL (80.0-100.0); MEAN CORPUSCULAR HEMOGLOBIN 22.2 PG (27.0-34.0); MEAN PLATELET VOLUME 8.2 FL (7.0-11.0); MONO % 10.7 % (0.0-8.0); MONOCYTE # 0.8 TH/MM3 (0-0.9); NEUT % 74.3 % (16.0-70.0); PLATELET COUNT 533 TH/MM3 (150-450); RED BLOOD COUNT 4.26 MIL/MM3 (4.00-5.30); RED CELL DISTRIBUTION WIDTH 22.4 % (11.6-17.2)
[2017-07-15 08:38] LABS: BICARBONATE 24.5 MEQ/L (21.0-32.0); CALCIUM 10.2 MG/DL (8.5-10.1); CREATININE 0.85 MG/DL (0.50-1.00); PHOSPHORUS 3.1 MG/DL (2.5-4.9)
[2017-07-15] MEDS: LABETALOL HCL 100 MG/20 ML VIAL IV PUSH PRN (09:06)
--- NOTE | 2017-07-15 09:14 | HHI.CCPN ---
Subjective Remarks/Hospital Course 57-year-old female. Date of admission 06/23/2017. Date of consultation 2017. Past medical history includes Patient originally presented to [facility] ED in atrial fibrillation with rapid ventricular response. Patient was initially started on a diltiazem drip and then was switched over to metoprolol tartrate 50 mg every 8 hours. After conversion, patient became bradycardic. CT abdomen/pelvis revealed a 1 mm gallstone without signs of cholecystitis. Otherwise unremarkable. The patient became more somnolent on the floor and bradycardic with heart rates as low as 42. EKG revealed sinus bradycardia with a first-degree AV block. Patient was arousable and with good pain in 1-2 word responses but fell asleep immediately. On examination patient did have pain especially in her right upper quadrant. CBC revealed hemoglobin 8.4. Ammonia level 35. BNP of 341. Remainder of laboratories are currently pending. Chest x-ray revealed right lower lobe infiltrate versus effusion. Patient did receive 60 mg total of furosemide within the past 24 hours. 3: Afebrile. Status post percutaneous cholecystostomy tube yesterday with aggressive crystalloid resuscitation. Currently resting in bed in no acute distress. Not on vasopressors. 32: Afebrile. A. fib with RVR overnight started on amiodarone drip. Digoxin 0.25 mg and diltiazem 10 mg given prior to initiation of amiodarone. Remains sedated on the ventilator. Possible seizure activity on EEG. Neurology is been counseled.. EPS cardiology and cardiothoracic surgery also been consulted for tachybradycardia syndrome and severe MR. Dr. Sterling/neurosurgeon is clear to trickle feeds today 33: Afebrile. EEG revealed continuous sharp spikes involving right frontal central region. Remains on levetiracetam at 500 mg every 12 hours. Noted possible switch to fosphenytoin per EEG report. Currently on propofol drip at 30 mcg/kg/min. Withdraws bilateral lower exams. Does not withdraw upper extremities currently. MRI brain currently pending. Tolerating trickle feeds at 10 cc an hour. 3: Repeat EEG pending today. Fosphenytoin added to medication regimen yesterday.No change in neurological assessment. Trickle feeds increased to 20 cc/hour with minimal residuals. 06/29: EEG repeated only showed slow waves possibly medication contributory. Patient previously on anticoagulation prior to admission and her to A. fib RVR, but due to concern for indeterminate source of anemia, GI consulted for recommendations and evaluation of risks/ benefits to initiate anticoagulation therapy. Patient continued to have pleural effusions Lasix IV dose 40 mg given. 06/30: Tolerated CPAP trials 2 hours, continues to be nonresponsive. Patient underwent EGD and colonoscopy colonoscopy was within normal limits. EGD revealed small erosions in the first part of the duodenum and a medium-sized ulcer. Recommended per GI to initiate/ resume anticoagulant therapy. Plan for every 12 hours H&H. 07/01: Patient remained on CPAP trials for approximately 2 hours. Patient remains encephalopathic off sedation. Noted hemoglobin drop will continue to closely monitor as therapeutic anticoagulation was initiated yesterday. 07/02: Hemoglobin stable. Patient continues on CPAP with light sedation. With sedation vacation the patient still is not responding to commands, not tracking. EEG shows no epileptiform activity. Patient will require tracheostomy and PEG placement consideration in the near future .Palliative care has been consulted. 07/03: Afebrile. Sedation has been completely discontinued, patient's opens eyes spontaneously movement of lower extremities to pain,but not on command. Patient continues on CPAP for greater than 24 hours. Plan discussion of to define goals of care with family per palliative care team. ET . 07/04: Tmax 100.0. The patient is now tracking visually, and following some commands ,sedation discontinued greater than 48 hours. Noted chest x-ray improvement. Continues on CPAP Extensive discussion with son this a.m. via telephone( Kenneth Walker), patient would not desire a tracheostomy, long-term mechanical ventilation or PEG. Tentative plan for Thursday for patient's 4 children to meet with palliative care to define goals of care. Discussion regarding blood products, patient is to receive blood products if needed. Per patient's family the patient attends a " [employer]" hoahaoism, but is not a baptized Jehovah witness, and continue transfusion of blood products if needed. 07/05: Hemoglobin remained stable. Patient awake and alert responding with yes and no questions. Following commands. Plan for trial of extubation in a.m., after discussion /(with family and palliative care team. Potassium level 3.2., Repletion KCL with 80 meq this a.m.. 07/06 Patient remains on CPAP PS 10, PEEP:5 with FIO2 305. Awake, tolerating tube feeds. Afebrile. 07/07 Patient was extubated yesterday morning however she was reintubated approx 1700 for resp failure and noted to have stridor, she was placed on Cardizem drip overnight 10mg/hr for Afib RVR, sedated with Diprivan and Fentanyl drip. T; 101.0 last night 07/08: Remains intubated heavily sedated. Appears to be breathing comfortably. Remains in atrial fibrillation but rate controlled. No fever. Cultures so far have been negative. Failed extubation last time due to stridor. Check cuff leak and start CPAP trials if tolerated. Given Decadron 10 mg IV 1, Lasix 60 mg IV 1 due to fluid overload 07/09: Patient remains intubated sedated with propofol and fentanyl. Urine output improved with Lasix 2.7 L in 24 hours. There was no cuff leak when checked yesterday, but patient has just 8.0 tube. Attempt CPAP trial again with parameters, ABG. Mitral regurgitation could be problematic with extubation if severe 07/10: Resting comfortably in bed in no acute distress. Failed swallow evaluation seen. Replacing potassium today. Continues to be encephalopathic 07/11: T-max 100. Currently afebrile currently in A. fib with RVR. Remains confused. Tolerated cardiac meds by mouth overnight. Will attempt to place another small bore NG tube today. Subjective 07/12: Remains in A. fib with RVR despite amiodarone drip. Currently on heart healthy diet/pured with honey thickened liquids. No bowel movement. 07/13 Patient remains in Afib with RVR on Amio drip. Afebrile. 07/14 No events overnight. On Amio drip. 07/15: Had been weaned off the amiodarone drip now. Heart rate is well controlled 70-80. Sodium remains elevated at 154. I will give 500 mL D5W bolus and start maintenance fluid at 84 mL/h with half-normal saline. Increase Cardizem to 90 mg every 6 hours, resume p.o. amiodarone. Dilantin level remains subtherapeutic. DC IV fosphenytoin start p.o. Dilantin 200 mg p.o. every 8 hours Objective Vital Signs Date Time Temp Pulse Resp B/P (MAP) Pulse Ox O2 Delivery O2 Flow Rate FiO2 07/15/17 06:00 98 07/15/17 04:00 98.3 21 175/78 (110) 93 07/14/17 19:05 21 Intake and Output 07/15/17 07/15/17 07/16/17 08:00 16:00 00:00 Intake Total 240 ml Output Total 150 ml Balance 90 ml Result Diagram: 07/15/17 0719 07/15/17 0719 Other Results Microbiology Date/Time Source Procedure Growth Status 07/12/17 16:10 Urine Random Urine Urine Culture - Final NO GROWTH IN 48 HOURS. Complete Imaging Last Impressions Chest X-Ray 07/13/17 0600 Signed Impressions: Service Date/Time: Thursday, July 13, 2017 05:28 - CONCLUSION: Stable lingular scarring or atelectasis. The remainder of the lungs are clear. Floyd Magallanes MD Abdomen X-Ray 07/12/17 0000 Signed Impressions: Service Date/Time: Wednesday, July 12, 2017 12:26 - CONCLUSION: 1. Cholecystostomy tube. 2. There is only minimal stool evident within the cecum and adjacent colon. No definite findings to indicate constipation identified. King Contreras MD Chest CT 07/07/17 0000 Signed Impressions: Service Date/Time: Friday, July 07, 2017 10:35 - CONCLUSION: 1. Interval resolution of bilateral pleural effusions with improved airspace disease in the lower lobes in comparison to 06/24/2017. 2. Very subtle anterior pericardial effusion. Akira Cullen MD Abdomen/Pelvis CT 07/07/17 0000 Signed Impressions: Service Date/Time: Friday, July 07, 2017 10:35 - CONCLUSION: 1. No loculated fluid collections within the abdomen and pelvis to suggest abscess. Drainage catheter remains in right upper quadrant. 2. Improved basilar airspace consolidation in the lungs since June 24. 3. NG coiled in stomach. Ferguson catheter in decompressed bladder. No bowel obstruction, free fluid or free air. Leandro Palacios MD Brain MRI 06/27/17 0000 Signed Impressions: Service Date/Time: Tuesday, June 27, 2017 10:00 - CONCLUSION: 1. No acute intracranial abnormality. 2. Mild chronic small vessel ischemic change. Floyd Tiwari Jr., MD Head CT 06/24/17 1645 Signed Impressions: Service Date/Time: Saturday, June 24, 2017 18:00 - CONCLUSION: No acute disease. Brian Burnett MD Percutaneous Cholangiogram 06/24/17 0000 Signed Impressions: Service Date/Time: Saturday, June 24, 2017 20:36 - CONCLUSION: Uncomplicated percutaneous cholecystostomy as above. Lalo Wong MD Objective Remarks GENERAL: 57-year-old female currently resting in bed on room air in no acute distress SKIN: Warm and dry. No rash. Well perfused HEAD: Atraumatic. Normocephalic. EYES: Pupils equal and round about 2 mm bilaterally and brisk. No scleral icterus. No injection or drainage. ENT: No nasal bleeding or discharge. NECK: Trachea midline. No JVD. CARDIOVASCULAR: Atrial fibrillation rate controlled, IR. S1, S2 no S4. RESPIRATORY: Air entry diminished at the bases. No wheezing GASTROINTESTINAL: Abdomen soft, tender to palpation in the right upper quadrant and epigastric region. Cholecystostomy tube in place with biliary drainage. MUSCULOSKELETAL: Extremities with trace lower extremity peripheral edema. No obvious deformities. 1+ edema right upper extremity NEUROLOGICAL: Alert awake. Strength is equal symmetric. Normal sensation Date of Insertion: Jun 24, 2017 Date of Removal: Jul 09, 2017 Line: Central Venous Catheter Side: Right Location: Subclavian A/P Assessment and Plan Neuro/Psych: Metabolic encephalopathy Probable Seizure UDS positive for barbiturates Depression/anxiety Acetaminophen 650 mg every 6 hours as needed fever CT brain 06/24 revealed no acute intracranial findings EEG 06/25 revealed right frontal lobe sharp activity indicative of epileptiform. Loaded with levetiracetam 1 g IV 1 on 06/26 followed by 500 mg IV twice daily. currently on PO Repeat EEG 06/26 revealed continuous sharps in right frontal region, Repeat EEG 06/28- no epileptiform activity Neurology- Dr. Shannon following 06/27 MRI brain-no acute intracranial abnormality On fosphenytoin 150 mg every 8 hours and levetiracetam 500 PO twice daily per Neuro, phenytoin level: 6, 07/14 DC fosphenytoin and start p.o. Dilantin 200 mg every 8 hours Repeat level in a.m. Previously on paroxetine unknown dosage for depression CV: Atrial fibrillation rate controlled Chronic atrial fibrillation Hypertension Lactic acidosis resolved Moderate to Severe TR/MR Acute diastolic heart failure Tachybrady syndrome Currently off amiodarone drip. Resume amiodarone 200 mg p.o. twice daily On metoprolol 50 mg Q6, Cardizem 60mg Q6, Lisinopril 2.5mg daily. Increase Cardizem to 90 mg every [address] Adan anne for ablation discussed with Dr. Jeffers. await recommendation 2D echocardiogram revealed EF 45-50%. Decreased LV systolic function. Bilateral atrial enlargement. Moderate to Severe MR and TR. Cardiology is following, EPS consulted secondary to tachybradycardia syndrome- no intervention at this time 05/[address] surgery consulted to evaluate severe MR- Dr. Paul following-no intervention at this time 05/29 clinical status, but once clinically improved will reevaluate for surgery Lactate is cleared 06/26 Labetalol PRN for SBP > 165 Resp: Acute respiratory failure Intubated 06/24, extubated and reintubated on 07/06, extubated 07/08 Stridor-resolved Right lower lobe infiltrate/pleural effusion Nasal cannula to maintain saturation greater than equal to 92%. Currently in room air Incentive spirometry while awake Completed Solumedrol 40mg Q6 for stridor. Given Decadron 10 mg IV 1 07/08 Previous extubation failure most likely from stridor but severe MR also contributed CXR: Lingula scarring /atelectasis otherwise clear lungs GI: Cholelithiasis on ultrasound 06/23 possibly acute cholecystitis Hypoalbuminemia Gastroesophageal reflux disease Elevated transaminases Status post cholecystostomy tube by IR 06/24- monitor output, fluid cx: no growth General surgery recommended continue cholecystostomy tube placement. Outpatient follow-up for cholecystectomy. on pantoprazole 40 mg p.o. daily for gastroesophageal reflux disease Docusate sodium/senna 1 tablet twice daily for bowel regimen. Mineral oil enema 1. Check [facility] GI Dr. Naqvi - S/P colonoscopy and endoscopy 06/30, upper endoscopy revealed medium-sized ulcer first part of duodenum, multiple small erosions gastric antrum. Colon- Normal mucosa Currently in heart healthy diet/pured with honey thickened liquids Renal/FEN/: Acute kidney injury resolved Hypernatremia Monitor renal function, electrolytes replacement per protocol. D5W 400 mL bolus, half-normal saline at 84 mL/h Trend sodium every 8 hours Endo: Sliding-scale insulin Novulin R with Accu-Cheks before meals/at bedtime to maintain euglycemia/low regimen TSH -1.76 Heme: Microcytic hypochromic anemia Monitor CBC daily. Follow trend ID: Sepsis likely acute cholecystitis Strep pneumo bacteremia Patient has been on Pipracil/tazobactam since 06/24 and Vanco since 06/30- C- diff PCR negative on 07/06 07/07 blood culture revealed strep pneumo bacteremia. Repeat 07/09 no growth Currently on ampicillin/sulbactam and Diflucan. Vancomycin DC'd 07/07 by ID 06/25 Urine Legionella pneumococcal antigens no growth Influenza negative Pertinent cultures 07/09: Blood cultures 2 coag negative staph 07/07 -blood culture -strep pneumo 06/25 -bile -no growth 06/25 -sputum -no growth 06/24 -blood cultures 4 -no growth 06/24 -urine -no growth MSK: PT evaluate and treat Daily functional maintenance Multi-Podus boots bilaterally Prophylaxis -GI -pantoprazole -DVT -SCDs, enoxaparin 65 mg subcu twice daily Level 2 Consult [facility] to assume care in am 07/16. Transfer to [facility] with Tele in afternoon, if Na improving Kena Dover MD Jul 15, 2017 09:14
[2017-07-15] MEDS ORDERED: DEXTROSE 5% IN WATE 500 ML INJ 500 ML IV ONE (09:15)
[2017-07-15] MEDS: SODIUM CHLOR 0.45% 1000 ML INJ 1,000 ML IV SCH ×2 (09:17→22:45)
--- NOTE | 2017-07-15 10:37 | PD.CARD.PN ---
Subjective Subjective Remarks alert but still disoriented Objective Medications Current Medications Medications (Trade) Dose Ordered Sig/Salud Route Start Time Stop Time Status Last Admin (Narcan Inj) 0.4 mg UNSCH PRN IV PUSH 06/23/17 20:30 (D50w (Vial) Inj) 50 ml UNSCH PRN IV PUSH 06/24/17 17:00 07/09/17 15:53 (Glucagon Inj) 1 mg UNSCH PRN OTHER 06/24/17 17:00 (NS Flush) 2 ml UNSCH PRN IV FLUSH 06/24/17 17:00 07/08/17 16:58 (NS Flush) 2 ml BID IV FLUSH 06/24/17 21:00 07/15/17 07:50 (Zofran Inj) 4 mg Q6H PRN IV PUSH 06/24/17 17:00 07/05/17 17:24 (Albuterol Neb) 2.5 mg Q2HR NEB PRN INH 06/24/17 17:00 07/07/17 20:49 Miscellaneous Information 1 Q361D XX 06/24/17 18:00 (Chlorhexidine 2% Cloth) 3 pack Taper DAILY@04 TOP 06/25/17 04:00 06/21/18 03:59 07/14/17 22:00 (Chlorhexidine 2% Cloth) 3 pack UNSCH PRN TOP 06/24/17 17:00 (Keiry-Colace) 1 tab BID PO 06/24/17 21:00 07/15/17 07:50 (Senokot) 17.2 mg Q12H PRN PO 06/24/17 17:00 (Dulcolax Supp) 10 mg DAILY PRN RECTAL 06/24/17 17:00 (Lactulose Liq) 30 ml DAILY PRN PO 06/24/17 17:00 07/10/17 17:27 (Peridex 0.12% Liq) 15 ml BID@08,20 MT 06/24/17 20:00 07/14/17 19:55 (Brethine Inj) 1 mg UNSCH PRN SQ 06/24/17 19:30 (Tylenol 650 Mg/ 20 ml Liq) 650 mg Q6H PRN NG 06/25/17 08:45 07/12/17 15:40 (Cordarone) 200 mg Q12HR PO 06/29/17 16:00 Future hold 07/11/17 09:44 (Lopressor Inj) 2.5 mg Q6H PRN IV PUSH 06/30/17 09:45 07/11/17 05:01 (Trandate Inj) 10 mg Q4H PRN IV PUSH 07/02/17 16:45 07/15/17 09:06 (Mycostatin Liq) 5 ml QID SWISH-SWAL 07/04/17 09:00 07/18/17 09:00 07/15/17 07:51 (Racepinephrine 2.25% Neb) 0.5 ml Q3HR NEB PRN NEB 07/08/17 12:30 07/09/17 10:43 (Diflucan) 100 mg DAILY PO 07/10/17 09:00 07/15/17 07:50 Ampicillin Sodium/ Sulbactam Sodium 3 gm/Sodium Chloride 100 ml @ 200 mls/hr Q6H IV 07/10/17 14:00 07/17/17 16:00 07/15/17 07:50 (NovoLIN R SUPPLEMENTAL SCALE) 1 ACHS SQ 07/12/17 12:00 (Lopressor) 50 mg Q6HR PO 07/12/17 12:00 07/15/17 05:10 (Lovenox Inj) 65 mg BID SQ 07/12/17 21:00 07/15/17 07:51 (Keppra) 500 mg Q12HR PO 07/12/17 21:00 07/15/17 07:50 (Protonix) 40 mg DAILY PO 07/13/17 09:00 07/15/17 07:50 (Prinivil) 2.5 mg DAILY PO 07/14/17 09:00 07/15/17 07:50 (Pill Splitter) 1 ea UNSCH PRN OTHER 07/13/17 14:00 Potassium Chloride 100 ml @ 50 mls/hr Q2H PRN IV 07/14/17 14:45 Potassium Chloride 100 ml @ 50 mls/hr Q2H PRN IV 07/14/17 14:45 07/14/17 18:48 (K-Lyte Cl Eff) 50 meq UNSCH PRN PO 07/14/17 14:45 Potassium Chloride 100 ml @ 25 mls/hr UNSCH PRN IV 07/14/17 14:45 Potassium Chloride 100 ml @ 50 mls/hr Q2H PRN IV 07/14/17 14:45 Magnesium Sulfate 4 gm/Sodium Chloride 100 ml @ 50 mls/hr UNSCH PRN IV 07/14/17 14:45 (Mag-Ox) 800 mg UNSCH PRN PO 07/14/17 14:45 Magnesium Sulfate 2 gm/Sodium Chloride 100 ml @ 50 mls/hr UNSCH PRN IV 07/14/17 14:45 (K-Phos) 2,000 mg Q4H PRN PO 07/14/17 14:45 Sodium Phosphate 30 mmol/Sodium Chloride 250 ml @ 42 mls/hr UNSCH PRN IV 07/14/17 14:45 (K-Phos) 2,000 mg UNSCH PRN PO/TUBE 07/14/17 14:45 Potassium Phosphate 30 mmol/ Sodium Chloride 260 ml @ 42 mls/hr UNSCH PRN IV 07/14/17 14:45 Sodium Chloride 1,000 ml @ 84 mls/hr [id number] IV 07/15/17 09:15 07/15/17 09:17 (Cardizem) 90 mg Q6HR PO 07/15/17 12:00 (Dilantin) 200 mg Q8HR PO 07/15/17 14:00 Vital Signs / I&O Vital Signs Date Time Temp Pulse Resp B/P (MAP) Pulse Ox O2 Delivery O2 Flow Rate FiO2 07/15/17 10:10 93 25 163/59 (93) 91 07/15/17 10:00 88 07/15/17 09:01 88 24 202/90 (127) 100 07/15/17 08:00 98.7 92 17 226/98 (140) 100 07/15/17 08:00 92 07/15/17 06:00 98 07/15/17 04:00 98.3 92 21 175/78 (110) 93 07/15/17 04:00 92 07/15/17 02:00 95 07/15/17 00:00 97.9 94 21 187/97 (127) 93 07/15/17 00:00 95 07/14/17 22:00 91 07/14/17 20:00 99 07/14/17 20:00 98.3 92 21 144/65 (91) 93 07/14/17 19:05 94 21 07/14/17 19:00 99 07/14/17 18:00 106 07/14/17 17:00 90 07/14/17 16:00 98.0 91 25 130/76 (94) 80 07/14/17 16:00 91 07/14/17 15:00 84 07/14/17 14:00 98 07/14/17 13:00 90 07/14/17 12:00 98.3 93 21 144/65 (91) 93 07/14/17 12:00 93 07/14/17 11:00 103 I/O 07/14/17 07/14/17 07/14/17 07/15/17 07/15/17 07/15/17 07:00 15:00 23:00 07:00 15:00 23:00 Intake Total 421 ml 100 ml 900 ml 240 ml Output Total 750 ml 100 ml 150 ml Balance -329 ml 100 ml 800 ml 90 ml Intake Oral 350 ml 240 ml IV Total 421 ml 100 ml 550 ml Output Urine Total 600 ml 100 ml 150 ml Drainage Total 150 ml # Voids 2 3 # Bowel Movements 0 3 Physical Exam GENERAL: SKIN: Warm and dry. HEAD: Normocephalic. EYES: No scleral icterus. No injection or drainage. NECK: Supple, trachea midline. No JVD or lymphadenopathy. CARDIOVASCULAR: Regular rate and rhythm without murmurs, gallops, or rubs. RESPIRATORY: Breath sounds equal bilaterally. No accessory muscle use. GASTROINTESTINAL: Abdomen soft, non-tender, nondistended. MUSCULOSKELETAL: No cyanosis, or edema. BACK: Nontender without obvious deformity. No CVA tenderness. Laboratory Laboratory Tests Test 07/14/17 12:05 07/15/17 07:19 White Blood Count 10.2 TH/MM3 7.0 TH/MM3 Red Blood Count 4.16 MIL/MM3 4.26 MIL/MM3 Hemoglobin 9.1 GM/DL 9.4 GM/DL Hematocrit 30.2 % 31.5 % Mean Corpuscular Volume 72.5 FL 73.9 FL Mean Corpuscular Hemoglobin 21.9 PG 22.2 PG Mean Corpuscular Hemoglobin Concent 30.1 % 30.0 % Red Cell Distribution Width 22.5 % 22.4 % Platelet Count 564 TH/MM3 533 TH/MM3 Mean Platelet Volume 8.3 FL 8.2 FL Neutrophils (%) (Auto) 83.1 % 74.3 % Lymphocytes (%) (Auto) 7.6 % 13.4 % Monocytes (%) (Auto) 8.0 % 10.7 % Eosinophils (%) (Auto) 0.8 % 1.1 % Basophils (%) (Auto) 0.5 % 0.5 % Neutrophils # (Auto) 8.5 TH/MM3 5.2 TH/MM3 Lymphocytes # (Auto) 0.8 TH/MM3 0.9 TH/MM3 Monocytes # (Auto) 0.8 TH/MM3 0.8 TH/MM3 Eosinophils # (Auto) 0.1 TH/MM3 0.1 TH/MM3 Basophils # (Auto) 0.0 TH/MM3 0.0 TH/MM3 CBC Comment DIFF FINAL DIFF FINAL Differential Comment Blood Urea Nitrogen 33 MG/DL 27 MG/DL Creatinine 0.91 MG/DL 0.85 MG/DL Random Glucose 89 MG/DL 85 MG/DL Calcium Level 11.2 MG/DL 10.2 MG/DL Phosphorus Level 3.2 MG/DL 3.1 MG/DL Magnesium Level 1.9 MG/DL Sodium Level 150 MEQ/L 154 MEQ/L Potassium Level 3.1 MEQ/L 3.6 MEQ/L Chloride Level 115 MEQ/L 120 MEQ/L Carbon Dioxide Level 23.2 MEQ/L 24.5 MEQ/L Anion Gap 12 MEQ/L 10 MEQ/L Estimat Glomerular Filtration Rate 63 ML/MIN 68 ML/MIN B-Type Natriuretic Peptide 183 PG/ML Phenytoin (Dilantin) Level 6.0 MCG/ML Assessment and Plan Problem List: (1) Mitral regurgitation ICD Codes: I34.0 - Nonrheumatic mitral (valve) insufficiency (2) Bradycardia ICD Codes: R00.1 - Bradycardia, unspecified (3) Atrial fibrillation with RVR ICD Codes: I48.91 - Unspecified atrial fibrillation Status: Acute Assessment and Plan 1.) Cardiomyopathy - on lopressor, lisinopril 2.) Afib - re consult Dr Arellano, due to tachy-joe syndrome, tolerating lopressor, cardizem and lovenox, d/w Dr Roa and nurse, Dr Arellano following 3.) Severe mr - f/u ct surgery to determine if patient is a surgical candidate for potential mvr and cath if/when she is hemodynamically stable, patient consents and rx plan for cholecystitis defined Gianni Jeffers MD Jul 15, 2017 10:37
[2017-07-15] MEDS ORDERED: hydrALAZINE HCL 20 MG/ML VIAL IV PUSH ONE (11:00)
--- NOTE | 2017-07-15 11:29 | MB ---
cc: Dewayne Arellano MD DATE: 06/26/2017 HISTORY OF PRESENT ILLNESS: Mrs. Mercer is a 57-year-old female with history of atrial fibrillation, respiratory failure, sepsis. The patient was on mechanical ventilation. She is a chronic smoker. I did evaluate the patient previously on 06/26/2017. Medical management was recommended. The patient was intubated and reintubated again. Currently, she is extubated. Her heart rate still difficult to control. I was consulted for further evaluation and management. The chart was reviewed. The patient was evaluated. ALLERGIES: SULFA, CIPROFLOXACIN, HYDROMORPHONE. SOCIAL HISTORY: History as mentioned before. She is a smoker. MEDICATIONS: She is currently on ampicillin, sulbactam. She is on magnesium, potassium, acetaminophen, albuterol inhaler, amiodarone, Cardizem 60 mg q. 6 hours. She is on Lovenox subcutaneous. She is on Keppra 500 mg twice a day, lisinopril 2.5 mg a day. She is on insulin. She is on metoprolol 50 mg q. 6 hours. REVIEW OF SYSTEMS: She is feeling tired, shortness of breath. PHYSICAL EXAMINATION: GENERAL: Alert, apparently oriented, in bed. VITAL SIGNS: Blood pressure 144/65, pulse 99, respiratory rate 22-24. LUNGS: No wheezing. CARDIOVASCULAR: S1, S2, tachycardic, irregular. ABDOMEN: Soft. No mass. No bruits. EXTREMITIES: With no edema. Telemetry shows atrial fibrillation with ____ ventricular response. LABORATORY DATA: Hemoglobin 9.1, white blood cell 10.2. Potassium is 3.1, creatinine 0.91, sodium is 150. The INR is 1.3. ASSESSMENT AND RECOMMENDATIONS: Mrs. Noble Sierras condition is critical. She has shortness of breath. She can barely manage conversation, she has sepsis. She was intubated, reintubated and extubated again. Rate is in the low 100s. She is on multiple medications. She is on Cardizem, amiodarone and metoprolol. At this point my recommendation is still medical management. Mrs. Mercer is not a good surgical candidate. If I cannot control the heart rate and the patient is more stable, then I will consider AV node modification and pacing. Her condition is critical. The prognosis is guarded. Will be monitored during hospitalization. Dewayne Arellano MD HS/rt , 11:45 PM , 12:38 AM
--- NOTE | 2017-07-15 11:51 | RADRPT ---
EXAM DATE/TIME: 07/15/2017 11:14 [place] COMPARISON: No previous studies available for comparison. INDICATIONS : Aspiration. FLUORO TIME: 0.7 minutes IMAGE COUNT: 1 CONTRAST: Dose as prescribed by speech pathologist. MEDICAL HISTORY : Gastroesophageal reflux disease. respiratory distress SURGICAL HISTORY : Tubal ligation. ENCOUNTER: Initial ACUITY: 3 weeks PAIN SCORE: 0/10 LOCATION: Bilateral neck FINDINGS: A modified barium swallow was performed with speech pathology. Patient was given a variety of liquids to swallow. Aspiration with all consistencies. CONCLUSION: Please see speech pathology for full report. Ivan Contreras MD FACR on July 15, 2017 at 11:49 Board Certified Radiologist. This report was verified electronically.
[2017-07-15] MEDS: DILTIAZEM HCL 90 MG TAB PO SCH ×2 (13:16→17:39)
[2017-07-15] MEDS: PHENYTOIN SODIUM 100 MG CAP PO SCH ×2 (13:17→22:44)
--- NOTE | 2017-07-15 15:45 | HHI.HCPN ---
Reason for visit a. To assist with evaluation and management of symptoms including: dyspnea. pain b. To assist medical decision maker(s) with: better understanding of current medical conditions; weighing benefits/burdens of medical treatment options; making medical treatment decisions. Subjective/Interval History Patient seen in follow-up on comfort, goals. Medically extubated 07/09, has been tolerating NC. remains encephalopathic, confused. Now on amiodarone, Cardizem oral for atrial fibrillation. Cardiology consulted, Dr. Palacios has evaluated indicates patient not currently candidate for any surgical cardiac procedures could consider AV node/pacer in the future if patient more stable. Continue with oral regimen. Status post barium swallow evaluation today patient noted with significant dysphagia, and aspiration. Remains nothing by mouth. NG tube has been placed. May require longer term feeding tube to meet nutritional needs, ST to follow ongoing to reassess. Patient seen in room no visitors present. She is asleep arouses to touch. Minimally verbal for me, does not answer my questions. does not state her name or for me. intermittently follows commands. grimaces w abdominal exam. following exam call to son Kenneth, GRETEL left. . Advance Directives Living Will: Never completed Health Care Surrogate: Never completed Durable Power of Vehicle Cost Engineer: Never completed Objective Vital Signs Date Time Temp Pulse Resp B/P (MAP) Pulse Ox O2 Delivery O2 Flow Rate FiO2 07/15/17 14:00 110 07/15/17 12:00 111 07/15/17 12:00 97.8 109 21 165/75 (105) 100 07/15/17 10:10 93 25 163/59 (93) 91 07/15/17 10:00 88 07/15/17 09:01 88 24 202/90 (127) 100 07/15/17 08:00 98.7 92 17 226/98 (140) 100 07/15/17 08:00 92 07/15/17 06:00 98 07/15/17 04:00 98.3 92 21 175/78 (110) 93 07/15/17 04:00 92 07/15/17 02:00 95 07/15/17 00:00 97.9 94 21 187/97 (127) 93 07/15/17 00:00 95 07/14/17 22:00 91 07/14/17 20:00 99 07/14/17 20:00 98.3 92 21 144/65 (91) 93 07/14/17 19:05 94 21 07/14/17 19:00 99 07/14/17 18:00 106 07/14/17 17:00 90 07/14/17 16:00 98.0 91 25 130/76 (94) 80 07/14/17 16:00 91 Intake & Output 07/15/17 07/15/17 07:00 19:00 Intake Total 240 ml Output Total 150 ml Balance 90 ml Intake Oral 240 ml Output Urine Total 150 ml # Voids 3 # Bowel Movements 3 Physical Exam CONSTITUTIONAL/GENERAL: This is an adequately nourished patient,lethargic confused. TUBES/LINES/DRAINS: PIV upper extremities , wick external catheter, NGT SKIN: slight jaundice. Few scattered healed round lesions to arms. Skin warm/ dry NECK: Trachea midline. Supple, nontender. No palpable thyroid enlargement or nodularity. CARDIOVASCULAR: Irregular rate and rhythm without murmur, rate 90s. Peripheral pulses symmetric. RESPIRATORY/CHEST: Symmetric, unlabored respirations on RA.Clear to auscultation. Breath sounds equal bilaterally. GASTROINTESTINAL: Abdomen soft, + tenderness/grimacing w palp, nondistended. No palpable masses. Bowel sounds present.Drain from rt side sm amt brownish yellow present GENITOURINARY: Without palpable bladder distension. external wick catheter in place. NEUROLOGICAL: lethargic, arouses some. Minimally verbal. Moving all 4 extremities. intermittently following commands. oriented to self, . Appears confused. PSYCHIATRIC: No obvious anxiety/depression- limited assessment due to clinical condition Diagnostic Tests Laboratory Laboratory Tests Test 07/12/17 16:10 07/13/17 06:47 07/14/17 12:05 07/15/17 07:19 Urine Color YELLOW (YELLW/STRAW) Urine Turbidity HAZY (CLEAR) Urine pH 5.5 (5.0-8.5) Urine Specific [place] 1.026 (1.002-1.035) Urine Protein 30 mg/dL (NEG-TRACE) Urine Glucose (UA) NEG mg/dL (NEG) Urine Ketones NEG mg/dL (NEG) Urine Occult Blood NEG (NEG) Urine Nitrite NEG (NEG) Urine Bilirubin NEG (NEG) Urine Urobilinogen LESS THAN 2.0 MG/DL (LESS Urine Leukocyte Esterase NEG (NEG) Urine RBC 2 /hpf (0-3) Urine WBC 1 /hpf (0-5) Urine Squamous Epithelial Cells <1 /hpf (0-5) Urine Uric Acid Crystals RARE /hpf (NONE) Urine Bacteria MOD /hpf (NONE) Microscopic Urinalysis Comment CULTURE INDICATED White Blood Count 12.4 TH/MM3 (4.0-11.0) 10.2 TH/MM3 (4.0-11.0) 7.0 TH/MM3 (4.0-11.0) Red Blood Count 4.33 MIL/MM3 (4.00-5.30) 4.16 MIL/MM3 (4.00-5.30) 4.26 MIL/MM3 (4.00-5.30) Hemoglobin 9.4 GM/DL (11.6-15.3) 9.1 GM/DL (11.6-15.3) 9.4 GM/DL (11.6-15.3) Hematocrit 31.3 % (35.0-46.0) 30.2 % (35.0-46.0) 31.5 % (35.0-46.0) Mean Corpuscular Volume 72.4 FL (80.0-100.0) 72.5 FL (80.0-100.0) 73.9 FL (80.0-100.0) Mean Corpuscular Hemoglobin 21.6 PG (27.0-34.0) 21.9 PG (27.0-34.0) 22.2 PG (27.0-34.0) Mean Corpuscular Hemoglobin Concent 29.9 % (32.0-36.0) 30.1 % (32.0-36.0) 30.0 % (32.0-36.0) Red Cell Distribution Width 22.3 % (11.6-17.2) 22.5 % (11.6-17.2) 22.4 % (11.6-17.2) Platelet Count 525 TH/MM3 (150-450) 564 TH/MM3 (150-450) 533 TH/MM3 (150-450) Mean Platelet Volume 8.2 FL (7.0-11.0) 8.3 FL (7.0-11.0) 8.2 FL (7.0-11.0) Neutrophils (%) (Auto) 85.7 % (16.0-70.0) 83.1 % (16.0-70.0) 74.3 % (16.0-70.0) Lymphocytes (%) (Auto) 6.3 % (9.0-44.0) 7.6 % (9.0-44.0) 13.4 % (9.0-44.0) Monocytes (%) (Auto) 7.5 % (0.0-8.0) 8.0 % (0.0-8.0) 10.7 % (0.0-8.0) Eosinophils (%) (Auto) 0.2 % (0.0-4.0) 0.8 % (0.0-4.0) 1.1 % (0.0-4.0) Basophils (%) (Auto) 0.3 % (0.0-2.0) 0.5 % (0.0-2.0) 0.5 % (0.0-2.0) Neutrophils # (Auto) 10.6 TH/MM3 (1.8-7.7) 8.5 TH/MM3 (1.8-7.7) 5.2 TH/MM3 (1.8-7.7) Lymphocytes # (Auto) 0.8 TH/MM3 (1.0-4.8) 0.8 TH/MM3 (1.0-4.8) 0.9 TH/MM3 (1.0-4.8) Monocytes # (Auto) 0.9 TH/MM3 (0-0.9) 0.8 TH/MM3 (0-0.9) 0.8 TH/MM3 (0-0.9) Eosinophils # (Auto) 0.0 TH/MM3 (0-0.4) 0.1 TH/MM3 (0-0.4) 0.1 TH/MM3 (0-0.4) Basophils # (Auto) 0.0 TH/MM3 (0-0.2) 0.0 TH/MM3 (0-0.2) 0.0 TH/MM3 (0-0.2) CBC Comment DIFF FINAL DIFF FINAL DIFF FINAL Differential Comment Blood Urea Nitrogen 34 MG/DL (7-18) 33 MG/DL (7-18) 27 MG/DL (7-18) Creatinine 0.88 MG/DL (0.50-1.00) 0.91 MG/DL (0.50-1.00) 0.85 MG/DL (0.50-1.00) Random Glucose 96 MG/DL (74-106) 89 MG/DL (74-106) 85 MG/DL (74-106) Total Protein 8.5 GM/DL (6.4-8.2) Albumin 3.4 GM/DL (3.4-5.0) Calcium Level 10.5 MG/DL (8.5-10.1) 11.2 MG/DL (8.5-10.1) 10.2 MG/DL (8.5-10.1) Phosphorus Level 3.5 MG/DL (2.5-4.9) 3.2 MG/DL (2.5-4.9) 3.1 MG/DL (2.5-4.9) Magnesium Level 2.0 MG/DL (1.5-2.5) 1.9 MG/DL (1.5-2.5) Alkaline Phosphatase 256 U/L (45-117) Aspartate Amino Transf (AST/SGOT) 48 U/L (15-37) Alanine Aminotransferase (ALT/SGPT) 52 U/L (10-53) Total Bilirubin 0.9 MG/DL (0.2-1.0) Sodium Level 150 MEQ/L (136-145) 150 MEQ/L (136-145) 154 MEQ/L (136-145) Potassium Level 3.5 MEQ/L (3.5-5.1) 3.1 MEQ/L (3.5-5.1) 3.6 MEQ/L (3.5-5.1) Chloride Level 112 MEQ/L (98-107) 115 MEQ/L (98-107) 120 MEQ/L (98-107) Carbon Dioxide Level 24.3 MEQ/L (21.0-32.0) 23.2 MEQ/L (21.0-32.0) 24.5 MEQ/L (21.0-32.0) Anion Gap 14 MEQ/L (5-15) 12 MEQ/L (5-15) 10 MEQ/L (5-15) Estimat Glomerular Filtration Rate 66 ML/MIN (>89) 63 ML/MIN (>89) 68 ML/MIN (>89) Phenytoin (Dilantin) Level 5.6 MCG/ML (10.0-20.0) 6.0 MCG/ML (10.0-20.0) B-Type Natriuretic Peptide 183 PG/ML (0-100) Result Diagram: 07/15/1771807/15/17718 Microbiology Microbiology Date/Time Source Procedure Growth Status 07/12/17 16:10 Urine Random Urine Urine Culture - Final NO GROWTH IN 48 HOURS. Complete Imaging Last Impressions Modified Barium Swallow 07/15/17 0000 Signed Impressions: Service Date/Time: Saturday, July 15, 2017 11:14 - CONCLUSION: Please see speech pathology for full report. Ivan Contreras MD FACR Chest X-Ray 07/13/17 0600 Signed Impressions: Service Date/Time: Thursday, July 13, 2017 05:28 - CONCLUSION: Stable lingular scarring or atelectasis. The remainder of the lungs are clear. Floyd Magallanes MD Abdomen X-Ray 07/12/17 0000 Signed Impressions: Service Date/Time: Wednesday, July 12, 2017 12:26 - CONCLUSION: 1. Cholecystostomy tube. 2. There is only minimal stool evident within the cecum and adjacent colon. No definite findings to indicate constipation identified. King Contreras MD Chest CT 07/07/17 0000 Signed Impressions: Service Date/Time: Friday, July 07, 2017 10:35 - CONCLUSION: 1. Interval resolution of bilateral pleural effusions with improved airspace disease in the lower lobes in comparison to 06/24/2017. 2. Very subtle anterior pericardial effusion. Akira Cullen MD Abdomen/Pelvis CT 07/07/17 0000 Signed Impressions: Service Date/Time: Friday, July 07, 2017 10:35 - CONCLUSION: 1. No loculated fluid collections within the abdomen and pelvis to suggest abscess. Drainage catheter remains in right upper quadrant. 2. Improved basilar airspace consolidation in the lungs since June 24. 3. NG coiled in stomach. Ferguson catheter in decompressed bladder. No bowel obstruction, free fluid or free air. Leandro Palacios MD Brain MRI 06/27/17 0000 Signed Impressions: Service Date/Time: Tuesday, June 27, 2017 10:00 - CONCLUSION: 1. No acute intracranial abnormality. 2. Mild chronic small vessel ischemic change. Floyd Tiwari Jr., MD Head CT 06/24/17 1645 Signed Impressions: Service Date/Time: Saturday, June 24, 2017 18:00 - CONCLUSION: No acute disease. Brian Burnett MD Percutaneous Cholangiogram 06/24/17 0000 Signed Impressions: Service Date/Time: Saturday, June 24, 2017 20:36 - CONCLUSION: Uncomplicated percutaneous cholecystostomy as above. Lalo Wong MD Procedures 07/09 extubated 07/06 extubated- reintubated 07/06 Assessment and Plan Disease Oriented Problem List: (1) Atrial fibrillation with RVR (2) Anemia (3) Pulmonary edema (4) Cholecystitis (5) Cardiomyopathy (6) Acute encephalopathy (7) Hypertension (8) Tachy-joe syndrome (9) Severe mitral regurgitation (10) Diastolic heart failure (11) Sepsis (12) GERD (gastroesophageal reflux disease) Symptom Scale: (1) Dyspnea 0-10 Scale: Unable to quantify (2) Pain 0-10 Scale: Unable to quantify (3) Encephalopathy 0-10 Scale: Unable to quantify Pertinent Non-Medical Issues Psychosocial: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 Spiritual:none listed. Legal:Pt is . Currently has 4 children Billy Mcqueen, Kenneth [phone] Yaneth; [phone] Health care proxy are the 4 children. Ethical issues impacting care:none Important Contacts Son: Kenneth [phone] dtr Yaneth [phone]. dtr Charisse [phone] son Billy [phone] . Prognosis 57 year old prognosis is guarded. She has been extubated twice during this hospitalization. She remains encephalopathic. Now with dysphagia. Remains high risk for ongoing complications and decline. Code Status: Full Code Plan ==Code: FULL CODE == Decision maker- pt currently does not capacity to make medical decisions.pt is . No advance directives. [place] Statutes proxy would be pt's four children: Kenneth, Yaneth, Charisse, and Billy. (family indicated they are OK w Kenneth serving as spokesperson.) == symptoms: pain- acute cholecystitis, now bedbound. Today tender w abdominal exam, unable to qualify. Cautious use opiates 2/2 AMS/encephalopathy,recent medical extubation. dyspnea- on mechanical ventilation--> medically extubated 07/06, tolerating room air-->> later reintubated. CXR some improvement RLL, + consolidation LLL.CT chest neg acute process EXTUBATED again 07/09, tolerating NC encephalopathy- hx ? seizures. ? toxic metabolic encephalopathy.ammonia 07/03 =10. 07/09 -07/13 confused, not consistently following commands/non verbal not answering yes/no appropriately . 07/14 slow , slight improvement, more alert, still confused. 07/15 +significant dysphagia, still encephalopathic =dysphagia- +severe dysphagia per barium swallow eval, NGT placed, may require longer term feeding tube. == goals of care: I reviewed CODE STATUS with patient family multiple times including after most recent extubation. We have reviewed the alternative of ongoing aggressive interventions (including possible tracheostomy, feeding tube ) vs comfort directed treatment. Family has expressed aggressive goals, hoping she will improve, though understand she may not , they are open to ongoing discussion as clinical course evolves. == palliative care will follow to make recommendations for symptoms and to review goals of care as pt's condition evolves. Attestation To help prompt me to consider important information that might be impacting today's encounter and assessment, information from prior notes written by myself or my colleagues may have been "brought forward" into today's note. My signature on this note, however, is an attestation that I personally performed the exam, history, and/or decision-making noted today, and, unless otherwise indicated, the interactions with patient, family, and staff as well as the review of records all occurred today. I also attest that the listed assessment and stated plan reflect my best clinical judgment today based on the combination of historical information, prior notes, and today's exam/ interactions. When time spent is documented, it refers only to time spent today by the signer, or if indicated, combined time spent today by collaborating physician/nurse practitioner. Idalia Riggs Jul 15, 2017 15:45
[2017-07-15] MEDS: AMIODARONE 200 MG TAB PO SCH (20:36)
[2017-07-16] VITALS (12 sets, daily range): BP systolic 151–186; BP diastolic 67–84; PULSE 69–107; RESP 10–23; TEMP 97.6–98.4; O2SAT 73–98
[2017-07-16] MEDS: METOPROLOL TARTRATE 50 MG TAB PO SCH ×2 (01:17→05:57)
[2017-07-16] MEDS: AMPICILLIN-SULBACTAM INJ 3 GM in SODIUM CHLORIDE 0.9% INJ 100 ML IV SCH ×4 (01:17→19:54)
[2017-07-16] MEDS: DILTIAZEM HCL 90 MG TAB PO SCH ×4 (01:17→17:14)
[2017-07-16] MEDS: CHLORHEXIDINE GLUCONATE 2 % 1 PACK (2 CLOTHS) TOP SCH (04:00)
[2017-07-16] MEDS: PHENYTOIN SODIUM 100 MG CAP PO SCH ×3 (05:57→19:56)
[2017-07-16] MEDS: CHLORHEXIDINE 0.12% (ORAL KIT) 15 ML CUP MT SCH ×2 (08:00→19:55)
[2017-07-16] MEDS: INSULIN NovoLIN REGULAR SUPPLEMENTAL SCALE SQ SCH ×4 (08:00→20:06)
[2017-07-16] MEDS: levETIRAcetam 500 MG TAB PO SCH ×2 (09:00→19:55)
[2017-07-16] MEDS: METOPROLOL TARTRATE 5 MG/5 ML VIAL IV PUSH SCH ×3 (09:00→19:53)
[2017-07-16] MEDS: LISINOPRIL 5 MG TAB PO SCH (09:00)
[2017-07-16] MEDS: DOCUSATE SODIUM 50 MG/SENNA 8.6 MG TAB PO SCH ×2 (09:00→19:55)
[2017-07-16] MEDS: FLUCONAZOLE 100 MG TAB PO SCH (09:00)
[2017-07-16] MEDS: NYSTATIN SUSP 500,000 U/5 ML CUP SWISH-SWAL SCH ×4 (09:00→19:56)
[2017-07-16] MEDS: PANTOPRAZOLE SOD 40 MG DELAYED RELEASE TAB PO SCH (09:00)
[2017-07-16] MEDS: SODIUM CHLORIDE 0.9% FLUSH 10 ML FLUSH IV FLUSH SCH ×2 (09:11→19:55)
[2017-07-16] MEDS: ENOXAPARIN SODIUM 80 MG/0.8 ML SYRINGE SQ SCH ×2 (09:11→19:53)
[2017-07-16] MEDS: SODIUM CHLOR 0.45% 1000 ML INJ 1,000 ML IV SCH (09:11)
--- NOTE | 2017-07-16 09:19 | HHI.PR ---
Subjective Remarks Follow up for Tachy-Urbano syndrome, Afib, s/p perc cholecystostomy tube placement. Patient is currently resting in bed, denies any chest pain, shortness of breath, fever, chills. She remains somewhat confused. She exhibits intermittent agitated behavior. Objective Vitals Vital Signs Date Time Temp Pulse Resp B/P (MAP) Pulse Ox O2 Delivery O2 Flow Rate FiO2 07/16/17 09:09 95 21 07/16/17 06:00 79 07/16/17 04:00 70 07/16/17 04:00 98.0 81 23 98 07/16/17 00:00 97.6 82 19 98 07/15/17 22:00 84 07/15/17 20:00 86 07/15/17 20:00 97.6 82 24 146/69 (94) 95 07/15/17 19:05 98 21 07/15/17 18:00 87 07/15/17 16:00 96 07/15/17 16:00 98.3 96 22 159/74 (102) 95 07/15/17 14:00 110 07/15/17 12:00 111 07/15/17 12:00 97.8 109 21 165/75 (105) 100 07/15/17 10:10 93 25 163/59 (93) 91 07/15/17 10:00 88 I/O 07/15/17 07/15/17 07/15/17 07/16/17 07/16/17 07/16/17 07:00 15:00 23:00 07:00 15:00 23:00 Intake Total 240 ml 1408 ml 1160 ml 100 ml Output Total 150 ml 200 ml 150 ml Balance 90 ml 1408 ml 960 ml -50 ml Intake Oral 240 ml 60 ml IV Total 1408 ml 1100 ml 100 ml Output Urine Total 150 ml Stool Total 0 ml Drainage Total 200 ml 150 ml # Voids 3 2 3 # Bowel Movements 3 0 Result Diagram: 07/15/1771807/15/17718 Imaging Last Impressions Modified Barium Swallow 07/15/17 0000 Signed Impressions: Service Date/Time: Saturday, July 15, 2017 11:14 - CONCLUSION: Please see speech pathology for full report. Ivan Contreras MD FACR Chest X-Ray 07/13/17 0600 Signed Impressions: Service Date/Time: Thursday, July 13, 2017 05:28 - CONCLUSION: Stable lingular scarring or atelectasis. The remainder of the lungs are clear. Floyd Magallanes MD Abdomen X-Ray 07/12/17 0000 Signed Impressions: Service Date/Time: Wednesday, July 12, 2017 12:26 - CONCLUSION: 1. Cholecystostomy tube. 2. There is only minimal stool evident within the cecum and adjacent colon. No definite findings to indicate constipation identified. King Contreras MD Chest CT 07/07/17 0000 Signed Impressions: Service Date/Time: Friday, July 07, 2017 10:35 - CONCLUSION: 1. Interval resolution of bilateral pleural effusions with improved airspace disease in the lower lobes in comparison to 06/24/2017. 2. Very subtle anterior pericardial effusion. Akira Cullen MD Abdomen/Pelvis CT 07/07/17 0000 Signed Impressions: Service Date/Time: Friday, July 07, 2017 10:35 - CONCLUSION: 1. No loculated fluid collections within the abdomen and pelvis to suggest abscess. Drainage catheter remains in right upper quadrant. 2. Improved basilar airspace consolidation in the lungs since June 24. 3. NG coiled in stomach. Ferguson catheter in decompressed bladder. No bowel obstruction, free fluid or free air. Leandro Palacios MD Brain MRI 06/27/17 0000 Signed Impressions: Service Date/Time: Tuesday, June 27, 2017 10:00 - CONCLUSION: 1. No acute intracranial abnormality. 2. Mild chronic small vessel ischemic change. Floyd Tiwari Jr., MD Head CT 06/24/17 1645 Signed Impressions: Service Date/Time: Saturday, June 24, 2017 18:00 - CONCLUSION: No acute disease. Brian Burnett MD Percutaneous Cholangiogram 06/24/17 0000 Signed Impressions: Service Date/Time: Saturday, June 24, 2017 20:36 - CONCLUSION: Uncomplicated percutaneous cholecystostomy as above. Lalo Wong MD Objective Remarks GENERAL: Alert, NAD. SKIN: Warm and dry. HEAD: Normocephalic. EYES: No scleral icterus. No injection or drainage. NECK: Supple, trachea midline. No JVD or lymphadenopathy. CARDIOVASCULAR: Regular rate and rhythm without murmurs, gallops, or rubs. RESPIRATORY: Breath sounds equal bilaterally. No accessory muscle use. GASTROINTESTINAL: Abdomen soft, non-tender, nondistended. Cholecystostomy tube in place. MUSCULOSKELETAL: No cyanosis, or edema. BACK: Nontender without obvious deformity. No CVA tenderness. Procedures Colonoscopy 06/30/2017 1. The colon mucosa was otherwise normal 2. Retroflexed views revealed no abnormalities EGD 06/30/2017 1. The esophagus was otherwise normal 2. Multiple small erosions were found in the gastric antrum; multiple biopsies was performed 3. Medium sized ulcer was found in the 1st part of the duodenum 4. Normal duodenal mucosa in the 2nd part of the duodenum 5. Retroflexion was performed and was normal 06/24/2017 Percutaneous Cholecystostomy tube placement. 06/25/2017 Echo Normal left ventricular size. Wall thickness is normal. The left ventricular systolic function is mildly reduced with an estimated ejection fraction in the range of 45- 50% The left atrial size is [id number] dilated. The right atrial size is [id number] dilated. Moderate to severe mitral valve regurgitation. There is moderate to severe tricuspid regurgitation. The estimated pulmonary arterial pressure is 32 mmHg. Date of Insertion: Jun 24, 2017 Date of Removal: Jul 09, 2017 Line: Central Venous Catheter Side: Right Location: Subclavian A/P Problem List: (1) Atrial fibrillation with RVR ICD Code: I48.91 - Unspecified atrial fibrillation Status: Acute (2) GERD (gastroesophageal reflux disease) ICD Code: K21.9 - Gastro-esophageal reflux disease without esophagitis (3) Anxiety ICD Code: F41.9 - Anxiety disorder, unspecified (4) Anemia ICD Code: D64.9 - Anemia, unspecified Status: Acute (5) Pulmonary edema ICD Code: J81.1 - Chronic pulmonary edema Assessment and Plan 57-year-old female with a medical history significant for atrial fibrillation, anxiety, GERD who presented to the hospital on 06/23/2017 with complaint of midepigastric discomfort and shortness of breath. Diltiazem drip was initially started and later switched to metoprolol 50mg Q8hrs. The patient became more somnolent on the floor and bradycardic with heart rates as low as 42. EKG revealed sinus bradycardia with a first-degree AV block. Patient was arousable and with good pain in 1-2 word responses but fell asleep immediately. On examination patient did have pain especially in her right upper quadrant. CBC revealed hemoglobin 8.4. Ammonia level 35. BNP of 341. Patient was intubated. Due to concern over seizure activity, neurology was consulted. Patient was started on anti-seizure meds. Patient required reintubation and eventually extubated on 07/08/2017. - Metabolic encephalopathy - Probable seizure disorder Currently on Keepra 500mg PO Q12hrs and Dilantin 200mg Q8hrs PO. EEG 06/25 revealed right frontal lobe sharp activity indicative of epileptiform. 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 Currently rate is controlled. Will d/c Amiodarone. Will initiate Metoprolol tartrate 2.5mg IV Q6hrs with holding parameters. Cardiothoracic surgery and Cardiology following. Currently patient is on Lovenox BID. If no surgery planned, we should consider switching to other anti-coagulants. - Acute respiratory failure hypoxia - Right lower lobe pneumonia - Strep pneumo bacteremia. - Pleural effusion - Continue Unasyn, Albuterol neb - Nutrition - Dysphagia - Speech continues to recommend NPO. - Patient was not able to tolerate NG tube. Per palliative care notes, family wants aggressive care. - I discussed with patient's daughter at length. She will discuss with her siblings and let me know about PEG Tube. - They will likely go with PEG Tube placement which can be done tomorrow 07/17. Full code. Lovenox 65mg BID. Problem Qualifiers (1) Anemia: Qualified Codes: D64.9 - Anemia, unspecified Jillian De Souza DO Jul 16, 2017 09:19
[2017-07-16] MEDS ORDERED: OLANZapine IM 10 MG VIAL IM ONE (10:45)
[2017-07-16 15:17] LABS: ALBUMIN 3.3 GM/DL (3.4-5.0); ALKALINE PHOSPHATASE 265 U/L (45-117); ALT (GPT) 46 U/L (10-53); AST (GOT) 46 U/L (15-37); BICARBONATE 23.8 MEQ/L (21.0-32.0); BLOOD UREA NITROGEN 15 MG/DL (7-18); CHLORIDE 107 MEQ/L (98-107); CREATININE 0.74 MG/DL (0.50-1.00); GLOMERULAR FILTRATION RATE 80 ML/MIN (>89); GLUCOSE,RANDOM 69 MG/DL (74-106); PHENYTOIN (DILANTIN) 7.5 MCG/ML (10.0-20.0); SODIUM (NA) 142 MEQ/L (136-145); TOTAL BILIRUBIN ADULT 0.7 MG/DL (0.2-1.0); TOTAL PROTEIN 8.4 GM/DL (6.4-8.2)
[2017-07-16] MEDS: POTASSIUM CHLOR 20 MEQ PREMIX 100 ML IV PRN ×4 (15:25→23:30)
--- NOTE | 2017-07-16 17:27 | PD.CARD.PN ---
Subjective Subjective Remarks alert but still disoriented Objective Medications Current Medications Medications (Trade) Dose Ordered Sig/Salud Route Start Time Stop Time Status Last Admin (Narcan Inj) 0.4 mg UNSCH PRN IV PUSH 06/23/17 20:30 (D50w (Vial) Inj) 50 ml UNSCH PRN IV PUSH 06/24/17 17:00 07/09/17 15:53 (Glucagon Inj) 1 mg UNSCH PRN OTHER 06/24/17 17:00 (NS Flush) 2 ml UNSCH PRN IV FLUSH 06/24/17 17:00 07/08/17 16:58 (NS Flush) 2 ml BID IV FLUSH 06/24/17 21:00 07/16/17 09:11 (Zofran Inj) 4 mg Q6H PRN IV PUSH 06/24/17 17:00 07/05/17 17:24 (Albuterol Neb) 2.5 mg Q2HR NEB PRN INH 06/24/17 17:00 07/07/17 20:49 Miscellaneous Information 1 Q361D XX 06/24/17 18:00 (Chlorhexidine 2% Cloth) 3 pack Taper DAILY@04 TOP 06/25/17 04:00 06/21/18 03:59 07/16/17 04:00 (Chlorhexidine 2% Cloth) 3 pack UNSCH PRN TOP 06/24/17 17:00 (Keiry-Colace) 1 tab BID PO 06/24/17 21:00 07/15/17 20:35 (Senokot) 17.2 mg Q12H PRN PO 06/24/17 17:00 (Dulcolax Supp) 10 mg DAILY PRN RECTAL 06/24/17 17:00 (Lactulose Liq) 30 ml DAILY PRN PO 06/24/17 17:00 07/10/17 17:27 (Peridex 0.12% Liq) 15 ml BID@08,20 MT 06/24/17 20:00 07/15/17 20:00 (Brethine Inj) 1 mg UNSCH PRN SQ 06/24/17 19:30 (Tylenol 650 Mg/ 20 ml Liq) 650 mg Q6H PRN NG 06/25/17 08:45 07/12/17 15:40 (Lopressor Inj) 2.5 mg Q6H PRN IV PUSH 06/30/17 09:45 07/11/17 05:01 (Trandate Inj) 10 mg Q4H PRN IV PUSH 07/02/17 16:45 07/15/17 09:06 (Mycostatin Liq) 5 ml QID SWISH-SWAL 07/04/17 09:00 07/18/17 09:00 07/15/17 17:39 (Racepinephrine 2.25% Neb) 0.5 ml Q3HR NEB PRN NEB 07/08/17 12:30 07/09/17 10:43 (Diflucan) 100 mg DAILY PO 07/10/17 09:00 07/15/17 07:50 Ampicillin Sodium/ Sulbactam Sodium 3 gm/Sodium Chloride 100 ml @ 200 mls/hr Q6H IV 07/10/17 14:00 07/17/17 16:00 07/16/17 13:28 (NovoLIN R SUPPLEMENTAL SCALE) 1 ACHS SQ 07/12/17 12:00 (Lopressor) 50 mg Q6HR PO 07/12/17 12:00 Future Hold 07/16/17 05:57 (Lovenox Inj) 65 mg BID SQ 07/12/17 21:00 07/16/17 09:11 (Keppra) 500 mg Q12HR PO 07/12/17 21:00 07/15/17 20:35 (Protonix) 40 mg DAILY PO 07/13/17 09:00 07/15/17 07:50 (Prinivil) 2.5 mg DAILY PO 07/14/17 09:00 07/15/17 07:50 (Pill Splitter) 1 ea UNSCH PRN OTHER 07/13/17 14:00 Potassium Chloride 100 ml @ 50 mls/hr Q2H PRN IV 07/14/17 14:45 Potassium Chloride 100 ml @ 50 mls/hr Q2H PRN IV 07/14/17 14:45 07/16/17 17:14 (K-Lyte Cl Eff) 50 meq UNSCH PRN PO 07/14/17 14:45 Potassium Chloride 100 ml @ 25 mls/hr UNSCH PRN IV 07/14/17 14:45 Potassium Chloride 100 ml @ 50 mls/hr Q2H PRN IV 07/14/17 14:45 Magnesium Sulfate 4 gm/Sodium Chloride 100 ml @ 50 mls/hr UNSCH PRN IV 07/14/17 14:45 (Mag-Ox) 800 mg UNSCH PRN PO 07/14/17 14:45 Magnesium Sulfate 2 gm/Sodium Chloride 100 ml @ 50 mls/hr UNSCH PRN IV 07/14/17 14:45 (K-Phos) 2,000 mg Q4H PRN PO 07/14/17 14:45 Sodium Phosphate 30 mmol/Sodium Chloride 250 ml @ 42 mls/hr UNSCH PRN IV 07/14/17 14:45 (K-Phos) 2,000 mg UNSCH PRN PO/TUBE 07/14/17 14:45 Potassium Phosphate 30 mmol/ Sodium Chloride 260 ml @ 42 mls/hr UNSCH PRN IV 07/14/17 14:45 Sodium Chloride 1,000 ml @ 84 mls/hr [id number] IV 07/15/17 09:15 07/16/17 09:11 (Cardizem) 90 mg Q6HR PO 07/15/17 12:00 07/16/17 05:57 (Dilantin) 200 mg Q8HR PO 07/15/17 14:00 07/16/17 05:57 (Lopressor Inj) 2.5 mg Q6H IV PUSH 07/16/17 09:00 07/16/17 15:26 (ZyPREXA ZYDIS ODT) 10 mg Q12HR PO 07/16/17 21:00 07/19/17 20:59 Potassium Cl/ Dextrose/Lact Ringer's 1,000 ml @ 84 mls/hr [id number] IV 07/16/17 17:00 Vital Signs / I&O Vital Signs Date Time Temp Pulse Resp B/P (MAP) Pulse Ox O2 Delivery O2 Flow Rate FiO2 07/16/17 14:00 82 07/16/17 12:00 80 07/16/17 12:00 98.4 80 21 175/76 (109) 97 07/16/17 10:00 74 07/16/17 09:09 95 21 07/16/17 08:00 69 07/16/17 08:00 98.4 69 23 151/67 (95) 95 07/16/17 06:00 79 07/16/17 04:00 70 3/22/18 04:00 98.0 81 23 98 07/16/17 00:00 97.6 82 19 98 07/15/17 22:00 84 07/15/17 20:00 86 07/15/17 20:00 97.6 82 24 146/69 (94) 95 07/15/17 19:05 98 21 07/15/17 18:00 87 I/O 07/15/17 07/15/17 07/15/17 07/16/17 07/16/17 07/16/17 07:00 15:00 23:00 07:00 15:00 23:00 Intake Total 240 ml 1408 ml 1160 ml 100 ml 200 ml Output Total 150 ml 200 ml 150 ml Balance 90 ml 1408 ml 960 ml -50 ml 200 ml Intake Oral 240 ml 60 ml IV Total 1408 ml 1100 ml 100 ml 200 ml Output Urine Total 150 ml Stool Total 0 ml Drainage Total 200 ml 150 ml # Voids 3 2 3 # Bowel Movements 3 0 Physical Exam GENERAL: SKIN: Warm and dry. HEAD: Normocephalic. EYES: No scleral icterus. No injection or drainage. NECK: Supple, trachea midline. No JVD or lymphadenopathy. CARDIOVASCULAR: Regular rate and rhythm without murmurs, gallops, or rubs. RESPIRATORY: Breath sounds equal bilaterally. No accessory muscle use. GASTROINTESTINAL: Abdomen soft, non-tender, nondistended. MUSCULOSKELETAL: No cyanosis, or edema. BACK: Nontender without obvious deformity. No CVA tenderness. Laboratory Laboratory Tests Test 07/16/17 09:00 07/16/17 13:58 Sodium Level 141 MEQ/L 142 MEQ/L Blood Urea Nitrogen 15 MG/DL Creatinine 0.74 MG/DL Random Glucose 69 MG/DL Total Protein 8.4 GM/DL Albumin 3.3 GM/DL Calcium Level 10.0 MG/DL Alkaline Phosphatase 265 U/L Aspartate Amino Transf (AST/SGOT) 46 U/L Alanine Aminotransferase (ALT/SGPT) 46 U/L Total Bilirubin 0.7 MG/DL Potassium Level 2.9 MEQ/L Chloride Level 107 MEQ/L Carbon Dioxide Level 23.8 MEQ/L Anion Gap 11 MEQ/L Estimat Glomerular Filtration Rate 80 ML/MIN Phenytoin (Dilantin) Level 7.5 MCG/ML Assessment and Plan Problem List: (1) Mitral regurgitation ICD Codes: I34.0 - Nonrheumatic mitral (valve) insufficiency (2) Bradycardia ICD Codes: R00.1 - Bradycardia, unspecified (3) Atrial fibrillation with RVR ICD Codes: I48.91 - Unspecified atrial fibrillation Status: Acute Assessment and Plan 1.) Cardiomyopathy - on lopressor, lisinopril 2.) Afib - re consult Dr Arellano, due to tachy-joe syndrome, tolerating lopressor, cardizem and lovenox, d/w Dr Roa and nurse, Dr Arellano following 3.) Severe mr - f/u ct surgery to determine if patient is a surgical candidate for potential mvr and cath if/when she is hemodynamically stable, patient consents and rx plan for cholecystitis defined Gianni Jeffers MD Jul 16, 2017 17:27
--- NOTE | 2017-07-16 17:37 | PD.CAR.PN ---
CVT Progress Note Subjective/Hospital Course: A 57-year-old female that initially presented to the emergency room with mid epigastric pain, short of breath for a couple of days, was in the process of moving to [place], has been out of her medications for the past week, has a history of atrial fibrillation, stopped her Xarelto 3 weeks ago, questionable rash, was found to be in atrial fibrillation with RVR, CHF. They did an echo, which showed mitral valve regurgitation, tricuspid regurgitation, EF 45%. They started her initially on Cardizem drip and then switched over to metoprolol. The patient converted and became somewhat bradycardic. They also did a CT abdomen and pelvis, which revealed a 1 mm gallstone with signs of cholecystitis. She has since undergone cholecystostomy tube on the . While she was on the medical floor, she became more somnolent and bradycardic with heart rates in the 40s, first-degree AV block. She was arousable, 1-2 word responses, but fell asleep immediately. Still had pain mid upper quadrant. Ammonia level was 35, BNP was 341, lactic acid was 11. During the course of the evening, she was still in atrial fibrillation, was given digoxin. She apparently had been intubated at some point. There was possible seizure activity on EEG. We consulted because of the severe mitral regurgitation. PAST MEDICAL HISTORY: Mitral regurgitation, chronic atrial fibrillation, anemia, anxiety, gastroesophageal reflux disease. 06/29 still having some epileptic focus on EEG per Neuro, on Keppra , Cerebyx, versed and propofol pupils [place] , , sedated on vent remains in afib rate controlled 07/01 pt not following commands CPAP trials, became tachycardic, placed back on propofol 07/09 pt extubated this am still very sleepy, non verbal not following commands repeat blood cultures now showing strep species ? GI source as per ID repeat BC pending pt needs PT/OT needs to improve neuro salvador / and clear of all infections 07/16 pt still very confused / encephalopathic now on amiodarone for afib did not pass barium swallow / dysphagia and aspiration / will need NG tube pt not a surgical candidate at this time recommend rehab when discharged and if neurologically improved and able to make her own decisions eval as outpt with Dr Paul in 6 weeks Objective: GENERAL: somnolent , confused SKIN: Warm and dry. HEAD: Normocephalic. EYES: No scleral icterus. No injection or drainage. NECK: Supple, trachea midline. No JVD or lymphadenopathy. CARDIOVASCULAR: irregular r rate and rhythm without murmurs, gallops, or rubs. RESPIRATORY: coarse bilateral breath sounds Breath sounds equal bilaterally. No accessory muscle use. GASTROINTESTINAL: Abdomen soft, non-tender, nondistended. MUSCULOSKELETAL: No cyanosis, mild general edema. MCKENZIE BACK: Nontender without obvious deformity. No CVA tenderness. Vital Signs Date Time Temp Pulse Resp B/P (MAP) Pulse Ox O2 Delivery O2 Flow Rate FiO2 07/16/17 14:00 82 07/16/17 12:00 80 07/16/17 12:00 98.4 80 21 175/76 (109) 97 07/16/17 10:00 74 07/16/17 09:09 95 21 07/16/17 08:00 69 07/16/17 08:00 98.4 69 23 151/67 (95) 95 07/16/17 06:00 79 07/16/17 04:00 70 07/16/17 04:00 98.0 81 23 98 07/16/17 00:00 97.6 82 19 98 07/15/17 22:00 84 07/15/17 20:00 86 07/15/17 20:00 97.6 82 24 146/69 (94) 95 07/15/17 19:05 98 21 07/15/17 18:00 87 Labs: Laboratory Tests Test 07/16/17 09:00 07/16/17 13:58 Sodium Level 141 MEQ/L (136-145) 142 MEQ/L (136-145) Blood Urea Nitrogen 15 MG/DL (7-18) Creatinine 0.74 MG/DL (0.50-1.00) Random Glucose 69 MG/DL (74-106) Total Protein 8.4 GM/DL (6.4-8.2) Albumin 3.3 GM/DL (3.4-5.0) Calcium Level 10.0 MG/DL (8.5-10.1) Alkaline Phosphatase 265 U/L (45-117) Aspartate Amino Transf (AST/SGOT) 46 U/L (15-37) Alanine Aminotransferase (ALT/SGPT) 46 U/L (10-53) Total Bilirubin 0.7 MG/DL (0.2-1.0) Potassium Level 2.9 MEQ/L (3.5-5.1) Chloride Level 107 MEQ/L (98-107) Carbon Dioxide Level 23.8 MEQ/L (21.0-32.0) Anion Gap 11 MEQ/L (5-15) Estimat Glomerular Filtration Rate 80 ML/MIN (>89) Phenytoin (Dilantin) Level 7.5 MCG/ML (10.0-20.0) Result Diagram: 07/15/17 0719 07/16/17 1358 (1) Mitral regurgitation Plan: see above note (2) Bradycardia Plan: No bradycardia or pauses seen on telemetry history and review. Heart rate controlled at this time on current medications. Continue current therapy per my discussion with Dr. Arellano. (3) Atrial fibrillation with RVR Plan: Remains in atrial fibrillation, heart rate controlled. On enoxaparin for thromboembolic prophylaxis. Charis Hines Jul 16, 2017 17:37
[2017-07-16] MEDS: diphenhydrAMINE HCL 50 MG/ML VIAL IV PUSH PRN (18:09)
[2017-07-16] MEDS: D5-LR + KCL 20 MEQ INJ 1,000 ML IV SCH (18:11)
[2017-07-16] MEDS: LABETALOL HCL 100 MG/20 ML VIAL IV PUSH PRN ×2 (18:15→23:29)
[2017-07-16] MEDS ORDERED: HALOPERIDOL LACTATE 5 MG/ML AMP IM ONE (18:45)
[2017-07-16] MEDS: OLANZapine ODT 10 MG TAB PO SCH (19:56)
[2017-07-16] MEDS ORDERED: OLANZapine ODT 10 MG TAB PO SCH (21:00)
[2017-07-17] VITALS (20 sets, daily range): BP systolic 114–207; BP diastolic 58–93; PULSE 91–123; RESP 17–31; TEMP 97.8–99.6; O2SAT 89–100
[2017-07-17] MEDS: AMPICILLIN-SULBACTAM INJ 3 GM in SODIUM CHLORIDE 0.9% INJ 100 ML IV SCH ×3 (02:00→15:35)
[2017-07-17] MEDS: METOPROLOL TARTRATE 5 MG/5 ML VIAL IV PUSH SCH ×4 (03:32→20:08)
[2017-07-17] MEDS: DILTIAZEM HCL 90 MG TAB PO SCH ×4 (05:41→17:33)
[2017-07-17] MEDS: PHENYTOIN SODIUM 100 MG CAP PO SCH ×2 (05:41→14:00)
[2017-07-17] MEDS: LABETALOL HCL 100 MG/20 ML VIAL IV PUSH PRN (07:31)
[2017-07-17] MEDS: D5-LR + KCL 20 MEQ INJ 1,000 ML IV SCH ×2 (07:47→17:34)
[2017-07-17] MEDS: INSULIN NovoLIN REGULAR SUPPLEMENTAL SCALE SQ SCH ×4 (08:00→20:09)
[2017-07-17] MEDS: CHLORHEXIDINE 0.12% (ORAL KIT) 15 ML CUP MT SCH ×2 (08:00→20:00)
[2017-07-17] MEDS: SODIUM CHLORIDE 0.9% FLUSH 10 ML FLUSH IV FLUSH PRN (08:30)
[2017-07-17] MEDS: SODIUM CHLORIDE 0.9% FLUSH 10 ML FLUSH IV FLUSH SCH ×2 (08:30→20:09)
[2017-07-17] MEDS: ENOXAPARIN SODIUM 80 MG/0.8 ML SYRINGE SQ SCH ×2 (09:00→20:09)
[2017-07-17] MEDS: OLANZapine ODT 10 MG TAB PO SCH ×2 (09:00→20:09)
[2017-07-17] MEDS: LISINOPRIL 5 MG TAB PO SCH (09:00)
[2017-07-17] MEDS: levETIRAcetam 500 MG TAB PO SCH ×2 (09:00→20:09)
[2017-07-17] MEDS: FLUCONAZOLE 100 MG TAB PO SCH (09:00)
[2017-07-17] MEDS: PANTOPRAZOLE SOD 40 MG DELAYED RELEASE TAB PO SCH (09:00)
[2017-07-17] MEDS: DOCUSATE SODIUM 50 MG/SENNA 8.6 MG TAB PO SCH ×2 (09:00→20:09)
[2017-07-17] MEDS: NYSTATIN SUSP 500,000 U/5 ML CUP SWISH-SWAL SCH ×3 (09:00→17:33)
[2017-07-17 10:50] LABS: INTERNATIONAL NORMALIZED RATIO 1.2 RATIO; PROTHROMBIN TIME - PATIENT 11.9 SEC (9.8-11.6)
[2017-07-17] MEDS ORDERED: ceFAZolin 2 GM PREMIX 0 ML ONE (13:43)
[2017-07-17] MEDS ORDERED: MIDAZOLAM HCL 5 MG/5 ML VIAL ONE (13:43)
[2017-07-17] MEDS ORDERED: fentaNYL CITRATE 250 MCG/5 ML AMP ONE (13:43)
[2017-07-17] MEDS ORDERED: GLUCAGON 1 MG/ML VIAL ONE (14:48)
[2017-07-17] MEDS ORDERED: IOHEXOL 350 MG/ML 50 ML BTL (for RAD DIAG) G-TUBE ONE (14:55)
--- NOTE | 2017-07-17 15:05 | PD.RAD ---
Post Procedure Progress Note Pre Procedure Diagnosis: (1) Encephalopathy Post Procedure Diagnosis: (1) Encephalopathy Procedure Date: Jul 17, 2017 Supervising Radiologist: Akira Cullen Proceduralist/Assist: RT Pete(R), RT Huma(R)(CV) Anesthesia: Conscious Sedation Plan of Activity Patient to Unit: ROPU Patient Condition: Good See PACS Report for procedural detail/treatment Akira Cullen MD Jul 17, 2017 15:05
--- NOTE | 2017-07-17 15:34 | HHI.PR ---
Subjective Remarks Follow up for Tachy-Urbano syndrome, Afib, s/p perc cholecystostomy tube placement. Patient appears to be more alert and coherent today. No fever, chills. Requests to take the restraints off. Objective Vitals Vital Signs Date Time Temp Pulse Resp B/P (MAP) Pulse Ox O2 Delivery O2 Flow Rate FiO2 07/17/17 12:00 99.4 112 31 166/66 (99) 94 07/17/17 12:00 112 07/17/17 11:00 98 24 158/93 (114) 100 07/17/17 10:00 93 07/17/17 10:00 93 21 160/86 (110) 100 07/17/17 09:00 91 21 134/60 (84) 100 07/17/17 08:00 98.0 93 19 130/66 (87) 100 07/17/17 08:00 91 07/17/17 07:36 95 17 171/82 (111) 89 07/17/17 07:00 91 17 207/79 (121) 98 07/17/17 06:00 93 07/17/17 04:00 92 07/17/17 04:00 98.2 92 21 128/58 (81) 97 07/17/17 02:00 91 07/17/17 00:00 92 07/17/17 00:00 97.8 92 18 148/70 (96) 99 07/16/17 22:00 87 07/16/17 20:00 98.0 90 21 185/81 (115) 73 07/16/17 20:00 90 07/16/17 20:00 107 07/16/17 18:00 107 07/16/17 18:00 106 07/16/17 16:00 83 07/16/17 16:00 97.7 83 10 186/84 (118) 97 I/O 07/16/17 07/16/17 07/16/17 07/17/17 07/17/17 07/17/17 07:00 15:00 23:00 07:00 15:00 23:00 Intake Total 100 ml 200 ml 300 ml 200 ml Output Total 150 ml 325 ml 530 ml Balance -50 ml 200 ml -25 ml -330 ml Intake Oral 0 ml IV Total 100 ml 200 ml 300 ml 200 ml Output Urine Total 200 ml 500 ml Stool Total 0 ml 0 ml Drainage Total 150 ml 125 ml 30 ml # Voids 3 3 # Bowel Movements 0 Result Diagram: 07/15/17 0719 07/17/17 1000 Imaging Last Impressions Modified Barium Swallow 07/15/17 0000 Signed Impressions: Service Date/Time: Saturday, July 15, 2017 11:14 - CONCLUSION: Please see speech pathology for full report. Ivan Contreras MD FACR Chest X-Ray 07/13/17 0600 Signed Impressions: Service Date/Time: Thursday, July 13, 2017 05:28 - CONCLUSION: Stable lingular scarring or atelectasis. The remainder of the lungs are clear. Floyd Magallanes MD Abdomen X-Ray 07/12/17 0000 Signed Impressions: Service Date/Time: Wednesday, July 12, 2017 12:26 - CONCLUSION: 1. Cholecystostomy tube. 2. There is only minimal stool evident within the cecum and adjacent colon. No definite findings to indicate constipation identified. King Contreras MD Chest CT 07/07/17 0000 Signed Impressions: Service Date/Time: Friday, July 07, 2017 10:35 - CONCLUSION: 1. Interval resolution of bilateral pleural effusions with improved airspace disease in the lower lobes in comparison to 06/24/2017. 2. Very subtle anterior pericardial effusion. Akira Cullen MD Abdomen/Pelvis CT 07/07/17 0000 Signed Impressions: Service Date/Time: Friday, July 07, 2017 10:35 - CONCLUSION: 1. No loculated fluid collections within the abdomen and pelvis to suggest abscess. Drainage catheter remains in right upper quadrant. 2. Improved basilar airspace consolidation in the lungs since June 24. 3. NG coiled in stomach. Ferguson catheter in decompressed bladder. No bowel obstruction, free fluid or free air. Leandro Palacios MD Brain MRI 06/27/17 0000 Signed Impressions: Service Date/Time: Tuesday, June 27, 2017 10:00 - CONCLUSION: 1. No acute intracranial abnormality. 2. Mild chronic small vessel ischemic change. Floyd Tiwari Jr., MD Head CT 06/24/17 1175 Signed Impressions: Service Date/Time: Saturday, June 24, 2017 18:00 - CONCLUSION: No acute disease. Brian Burnett MD Percutaneous Cholangiogram 06/24/17 0000 Signed Impressions: Service Date/Time: Saturday, June 24, 2017 20:36 - CONCLUSION: Uncomplicated percutaneous cholecystostomy as above. Lalo Wong MD Objective Remarks GENERAL: Alert, NAD. SKIN: Warm and dry. HEAD: Normocephalic. EYES: No scleral icterus. No injection or drainage. NECK: Supple, trachea midline. No JVD or lymphadenopathy. CARDIOVASCULAR: Regular rate and rhythm without murmurs, gallops, or rubs. RESPIRATORY: Breath sounds equal bilaterally. No accessory muscle use. GASTROINTESTINAL: Abdomen soft, non-tender, nondistended. Cholecystostomy tube in place. MUSCULOSKELETAL: No cyanosis, or edema. BACK: Nontender without obvious deformity. No CVA tenderness. Procedures Colonoscopy 06/30/2017 1. The colon mucosa was otherwise normal 2. Retroflexed views revealed no abnormalities EGD 06/30/2017 1. The esophagus was otherwise normal 2. Multiple small erosions were found in the gastric antrum; multiple biopsies was performed 3. Medium sized ulcer was found in the 1st part of the duodenum 4. Normal duodenal mucosa in the 2nd part of the duodenum 5. Retroflexion was performed and was normal 06/24/2017 Percutaneous Cholecystostomy tube placement. 06/25/2017 Echo Normal left ventricular size. Wall thickness is normal. The left ventricular systolic function is mildly reduced with an estimated ejection fraction in the range of 45- 50% The left atrial size is [id number] dilated. The right atrial size is [id number] dilated. Moderate to severe mitral valve regurgitation. There is moderate to severe tricuspid regurgitation. The estimated pulmonary arterial pressure is 32 mmHg. Date of Insertion: Jun 24, 2017 Date of Removal: Jul 09, 2017 Line: Central Venous Catheter Side: Right Location: Subclavian A/P Problem List: (1) Atrial fibrillation with RVR ICD Code: I48.91 - Unspecified atrial fibrillation Status: Acute (2) GERD (gastroesophageal reflux disease) ICD Code: K21.9 - Gastro-esophageal reflux disease without esophagitis (3) Anxiety ICD Code: F41.9 - Anxiety disorder, unspecified (4) Anemia ICD Code: D64.9 - Anemia, unspecified Status: Acute (5) Pulmonary edema ICD Code: J81.1 - Chronic pulmonary edema Assessment and Plan 57-year-old female with a medical history significant for atrial fibrillation, anxiety, GERD who presented to the hospital on 06/23/2017 with complaint of midepigastric discomfort and shortness of breath. Diltiazem drip was initially started and later switched to metoprolol 50mg Q8hrs. The patient became more somnolent on the floor and bradycardic with heart rates as low as 42. EKG revealed sinus bradycardia with a first-degree AV block. Patient was arousable and with good pain in 1-2 word responses but fell asleep immediately. On examination patient did have pain especially in her right upper quadrant. CBC revealed hemoglobin 8.4. Ammonia level 35. BNP of 341. Patient was intubated. Due to concern over seizure activity, neurology was consulted. Patient was started on anti-seizure meds. Patient required reintubation and eventually extubated on 07/08/2017. - Metabolic encephalopathy - Probable seizure disorder Currently on Keepra 500mg PO Q12hrs and Dilantin 200mg Q8hrs PO. EEG 06/25 revealed right frontal lobe sharp activity indicative of epileptiform. 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 Currently rate is controlled. Will d/c Amiodarone. Will initiate Metoprolol tartrate 2.5mg IV Q6hrs with holding parameters. Cardiothoracic surgery and Cardiology following. PEG tube placement today. We can consider oral anticoagulants. - Acute respiratory failure hypoxia - Right lower lobe pneumonia - Strep pneumo bacteremia. - Pleural effusion - Continue Unasyn, Albuterol neb - Nutrition - Dysphagia - Speech continues to recommend NPO. - Patient was not able to tolerate NG tube. Per palliative care notes, family wants aggressive care. - PEG tube placement today 07/17/2017. Full code. Lovenox 65mg BID. Lovenox held today due to procedure. Problem Qualifiers (1) Anemia: Qualified Codes: D64.9 - Anemia, unspecified Jillian De Souza DO Jul 17, 2017 3:34 pm
--- NOTE | 2017-07-17 16:12 | RADRPT ---
EXAM DATE/TIME: 07/17/2017 13:56 [facility] COMPARISON: No previous studies available for comparison. INDICATIONS : Patient with dysphagia in need of Gastrostomy tube placement. MEDICAL HISTORY : A-Fib, GERD SURGICAL HISTORY : Tubal ligation ENCOUNTER: Initial ACUITY: 1 month PAIN SCORE: 0/10 FLUORO TIME: 4 minutes IMAGE SERIES: 1 SEDATION TIME: 30 minutes CONTRAST: 20 cc Omnipaque (iohexol) 350 MEDICATION(S): 1.) 3 mg midazolam (Versed) IV 2.) 150 mcg Fentanyl (Sublimaze) IV Prophylactic antibiotics were administered with appropriate pre-procedure timing. Vancomycin within 2 hours of procedure, Ancef (or alternative) within 1 hour of procedure. DEVICE(S): 1.) 18 Fr gastrostomy tube PROCEDURE : 1. Limited abdominal ultrasound. 2. Fluoroscopically guided gastrostomy tube placement. 3. Conscious sedation with continuous EKG and oximetry monitoring. The risks, benefits and alternatives to the procedure were explained and verbal and written consent w as obtained. The site was prepped in sterile fashion. Full sterile technique was used, including ca p, mask, sterile gloves and gown and a large sterile sheet. Hand hygiene and 2% chlorhexidine and/or betadine/alcohol prep was utilized per protocol for cutaneous antisepsis. The skin and subcutaneous tissues were infiltrated with local anesthetic solution. Sterile gel and sterile probe cover were u tilized for ultrasound guidance. Ultrasound was used to jia the position of the liver. The stomach was insufflated with room air. Th ree percutaneous fasteners were placed to secure the anterior gastric wall. A small incision was made between the fasteners. The stomach was accessed with an 18 gauge needle. A n 0.035 wire was advanced into the small bowel. The tract was dilated. The gastrostomy tube was int roduced through a peel-away sheath. The position was confirmed with an injection of contrast. Conscious sedation was performed with the prescribed dosages and duration as above in the presence of an independent trained radiology nurse to assist in the monitoring of the patient. EKG and oximetry remained stable throughout the procedure. The patient tolerated the procedure well and there were n o complications. The patient was sent to post anesthesia recovery in stable condition. CONCLUSION: Uncomplicated gastrostomy tube placement as above. Akira Cullen MD on July 17, 2017 at 16:09 Board Certified Radiologist. This report was verified electronically.
[2017-07-17] MEDS ORDERED: MORPHINE SULFATE 4 MG/ML INJ IV PUSH ONE (16:15)
[2017-07-17] MEDS ORDERED: KETOROLAC TROMETHAMINE 30 MG/ML (IVP) VIAL IV PUSH ONE (16:30)
--- NOTE | 2017-07-17 17:10 | HHI.HCPN ---
Reason for visit a. To assist with evaluation and management of symptoms including: dyspnea. pain b. To assist medical decision maker(s) with: better understanding of current medical conditions; weighing benefits/burdens of medical treatment options; making medical treatment decisions. Subjective/Interval History Patient seen in follow-up on comfort, goals. Medically extubated 07/09, tolerating room air. Encephalopathy slowly improving. Status post barium swallow evaluation with significant dysphagia yesterday family agreed to proceed with PEG tube, this was placed today. Tolerated procedure well. CT continues to follow for mitral valve regurg not a candidate for further workup or procedure at this time follow-up outpatient. HR continues to be A. fib, rate controlled. Plan for resumption of oral medications tonight once clear to use PEG. Patient seen in room no visitors present. She is alert. Partially oriented much more lucid than she has been on any of my prior interactions with her. She is oriented to hospital, tells me she was here because of trouble breathing. She tells me she had a procedure on her stomach earlier today though is not certain what tells me it was "very important ". She is cooperative she follows commands. She is able to name her children. She knows she is in the hospital. Insight is still pretty limited into condition and clinical course however mentation overall much improved over prior interactions. She denies dyspnea. She denies nausea. She tells me she is hungry that she hasn't eaten in a days. She complains of some pain at PEG tube insertion site (nursing informs she just received prn). No other complaints. following exam call to son Kenneth, updated on current condition treatments in place, overall prognosis, slow improvement and encephalopathy. Updated procedure completed without issues. Reviewed that ST evaluations would likely be ongoing and she may regain the ability to swallow or this could be a longer term impairment that we cannot know this at this time. Gently explore that the patient because of prolonged hospitalization and multiple medical issues does still remain at risk for further complications and decline. He is appreciative of update expresses that the family is optimistic patient will continue to improve. All questions answered. Palliative contact information. . Advance Directives Living Will: Never completed Health Care Surrogate: Never completed Durable Power of Brewery Technician: Never completed Objective Vital Signs Date Time Temp Pulse Resp B/P (MAP) Pulse Ox O2 Delivery O2 Flow Rate FiO2 07/17/17 12:00 99.4 112 31 166/66 (99) 94 07/17/17 12:00 112 07/17/17 11:00 98 24 158/93 (114) 100 07/17/17 10:00 93 07/17/17 10:00 93 21 160/86 (110) 100 07/17/17 09:00 91 21 134/60 (84) 100 07/17/17 08:00 98.0 93 19 130/66 (87) 100 07/17/17 08:00 91 07/17/17 07:36 95 17 171/82 (111) 89 07/17/17 07:00 91 17 207/79 (121) 98 07/17/17 06:00 93 07/17/17 04:00 92 07/17/17 04:00 98.2 92 21 128/58 (81) 97 07/17/17 02:00 91 07/17/17 00:00 92 07/17/17 00:00 97.8 92 18 148/70 (96) 99 07/16/17 22:00 87 07/16/17 20:00 98.0 90 21 185/81 (115) 73 07/16/17 20:00 90 07/16/17 20:00 107 07/16/17 18:00 107 07/16/17 18:00 106 Intake & Output 07/17/17 07/17/17 07:00 19:00 Intake Total 400 ml 200 ml Output Total 530 ml Balance -130 ml 200 ml IV Total 400 ml 200 ml Output Urine Total 500 ml Drainage Total 30 ml Physical Exam CONSTITUTIONAL/GENERAL: This is an adequately nourished patient, alert, partially oriented TUBES/LINES/DRAINS: PIV upper extremities , wick external catheter, PEG tube under abdominal binder SKIN: slight jaundice. Few scattered healed round lesions to arms. Skin warm/ dry NECK: Trachea midline. Supple, nontender. No palpable thyroid enlargement or nodularity. CARDIOVASCULAR: Irregular rate and rhythm without murmur, rate 90s. Peripheral pulses symmetric. RESPIRATORY/CHEST: Symmetric, unlabored respirations on RA.Clear to auscultation. Breath sounds equal bilaterally. GASTROINTESTINAL: Abdomen soft, + tenderness to mid abdomen dressing over new PEG clean and dry, abdominal binder present.. No palpable masses. Bowel sounds present.Drain from rt side sm amt brownish yellow present GENITOURINARY: Without palpable bladder distension. external wick catheter in place. NEUROLOGICAL: Alert, oriented to person, family, hospital. Unable to state year. Very limited insight on hospitalization. Now she had a procedure earlier today that was very important. She does follow commands. She moves all 4 extremities. At times speech is slightly garbled. PSYCHIATRIC: No obvious anxiety/depression- Diagnostic Tests Laboratory Laboratory Tests Test 07/15/17 07:19 07/16/17 09:00 07/16/17 13:58 07/16/17 23:00 White Blood Count 7.0 TH/MM3 (4.0-11.0) Red Blood Count 4.26 MIL/MM3 (4.00-5.30) Hemoglobin 9.4 GM/DL (11.6-15.3) Hematocrit 31.5 % (35.0-46.0) Mean Corpuscular Volume 73.9 FL (80.0-100.0) Mean Corpuscular Hemoglobin 22.2 PG (27.0-34.0) Mean Corpuscular Hemoglobin Concent 30.0 % (32.0-36.0) Red Cell Distribution Width 22.4 % (11.6-17.2) Platelet Count 533 TH/MM3 (150-450) Mean Platelet Volume 8.2 FL (7.0-11.0) Neutrophils (%) (Auto) 74.3 % (16.0-70.0) Lymphocytes (%) (Auto) 13.4 % (9.0-44.0) Monocytes (%) (Auto) 10.7 % (0.0-8.0) Eosinophils (%) (Auto) 1.1 % (0.0-4.0) Basophils (%) (Auto) 0.5 % (0.0-2.0) Neutrophils # (Auto) 5.2 TH/MM3 (1.8-7.7) Lymphocytes # (Auto) 0.9 TH/MM3 (1.0-4.8) Monocytes # (Auto) 0.8 TH/MM3 (0-0.9) Eosinophils # (Auto) 0.1 TH/MM3 (0-0.4) Basophils # (Auto) 0.0 TH/MM3 (0-0.2) CBC Comment DIFF FINAL Differential Comment Blood Urea Nitrogen 27 MG/DL (7-18) 15 MG/DL (7-18) Creatinine 0.85 MG/DL (0.50-1.00) 0.74 MG/DL (0.50-1.00) Random Glucose 85 MG/DL (74-106) 69 MG/DL (74-106) Calcium Level 10.2 MG/DL (8.5-10.1) 10.0 MG/DL (8.5-10.1) Phosphorus Level 3.1 MG/DL (2.5-4.9) Sodium Level 154 MEQ/L (136-145) 141 MEQ/L (136-145) 142 MEQ/L (136-145) 141 MEQ/L (136-145) Potassium Level 3.6 MEQ/L (3.5-5.1) 2.9 MEQ/L (3.5-5.1) Chloride Level 120 MEQ/L (98-107) 107 MEQ/L (98-107) Carbon Dioxide Level 24.5 MEQ/L (21.0-32.0) 23.8 MEQ/L (21.0-32.0) Anion Gap 10 MEQ/L (5-15) 11 MEQ/L (5-15) Estimat Glomerular Filtration Rate 68 ML/MIN (>89) 80 ML/MIN (>89) Total Protein 8.4 GM/DL (6.4-8.2) Albumin 3.3 GM/DL (3.4-5.0) Alkaline Phosphatase 265 U/L (45-117) Aspartate Amino Transf (AST/SGOT) 46 U/L (15-37) Alanine Aminotransferase (ALT/SGPT) 46 U/L (10-53) Total Bilirubin 0.7 MG/DL (0.2-1.0) Phenytoin (Dilantin) Level 7.5 MCG/ML (10.0-20.0) Test 07/17/17 10:00 Prothrombin Time 11.9 SEC (9.8-11.6) Prothromb Time International Ratio 1.2 RATIO Potassium Level 4.1 MEQ/L (3.5-5.1) Result Diagram: 07/15/17 0719 07/17/17 1000 Imaging Last Impressions Gastrostomy Tube Placement 07/17/17 0000 Signed Impressions: Service Date/Time: Monday, July 17, 2017 13:56 - CONCLUSION: Uncomplicated gastrostomy tube placement as above. Akira Cullen MD Modified Barium Swallow 07/15/17 0000 Signed Impressions: Service Date/Time: Saturday, July 15, 2017 11:14 - CONCLUSION: Please see speech pathology for full report. Ivan Contreras MD FACR Chest X-Ray 07/13/17 0600 Signed Impressions: Service Date/Time: Thursday, July 13, 2017 05:28 - CONCLUSION: Stable lingular scarring or atelectasis. The remainder of the lungs are clear. Floyd Magallanes MD Abdomen X-Ray 07/12/17 0000 Signed Impressions: Service Date/Time: Wednesday, July 12, 2017 12:26 - CONCLUSION: 1. Cholecystostomy tube. 2. There is only minimal stool evident within the cecum and adjacent colon. No definite findings to indicate constipation identified. King Contreras MD Chest CT 07/07/17 0000 Signed Impressions: Service Date/Time: Friday, July 07, 2017 10:35 - CONCLUSION: 1. Interval resolution of bilateral pleural effusions with improved airspace disease in the lower lobes in comparison to 06/24/2017. 2. Very subtle anterior pericardial effusion. Akira Cullen MD Abdomen/Pelvis CT 07/07/17 0000 Signed Impressions: Service Date/Time: Friday, July 07, 2017 10:35 - CONCLUSION: 1. No loculated fluid collections within the abdomen and pelvis to suggest abscess. Drainage catheter remains in right upper quadrant. 2. Improved basilar airspace consolidation in the lungs since June 24. 3. NG coiled in stomach. Ferguson catheter in decompressed bladder. No bowel obstruction, free fluid or free air. Leandro Palacios MD Brain MRI 06/27/17 0000 Signed Impressions: Service Date/Time: Tuesday, June 27, 2017 10:00 - CONCLUSION: 1. No acute intracranial abnormality. 2. Mild chronic small vessel ischemic change. Floyd Tiwari Jr., MD Head CT 06/24/17 1645 Signed Impressions: Service Date/Time: Saturday, June 24, 2017 18:00 - CONCLUSION: No acute disease. Brian Burnett MD Percutaneous Cholangiogram 06/24/17 0000 Signed Impressions: Service Date/Time: Saturday, June 24, 2017 20:36 - CONCLUSION: Uncomplicated percutaneous cholecystostomy as above. Lalo Wong MD Procedures 07/09 extubated 07/06 extubated- reintubated 07/06 Assessment and Plan Disease Oriented Problem List: (1) Atrial fibrillation with RVR (2) Anemia (3) Pulmonary edema (4) Cholecystitis (5) Cardiomyopathy (6) Acute encephalopathy (7) Hypertension (8) Tachy-joe syndrome (9) Severe mitral regurgitation (10) Diastolic heart failure (11) Sepsis (12) GERD (gastroesophageal reflux disease) Symptom Scale: (1) Dyspnea 0-10 Scale: Unable to quantify (2) Pain 0-10 Scale: Unable to quantify (3) Encephalopathy 0-10 Scale: Unable to quantify Pertinent Non-Medical Issues Psychosocial: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 Spiritual:none listed. Legal:Pt is . Currently has 4 children Billy Mcqueen, Kenneth [phone] Yaneth; [phone] Health care proxy are the 4 children. Ethical issues impacting care:none Important Contacts Son: Kenneth [phone] dtr Yaneth [phone]. dtr Charisse [phone] son Billy [phone] . Prognosis 57 year old prognosis is guarded. She has been extubated twice during this hospitalization. She remains encephalopathic. Now with dysphagia. Remains high risk for ongoing complications and decline. Code Status: Full Code Plan ==Code: FULL CODE == Decision maker- pt currently does not capacity to make medical decisions.pt is . No advance directives. [place] proxy would be pt's four children: Kenneth, Yaneth, Charisse, and Billy. (family indicated they are OK w Kenneth serving as spokesperson.) == symptoms: pain- acute cholecystitis, now bedbound. Today tender w abdominal exam, unable to qualify. Cautious use opiates 2/2 AMS/encephalopathy,recent medical extubation. Patient status post PEG tube placement today; planes of tenderness around site has been given prn by nursing, monitor for effectiveness. Continued cautious use of any opiates given prolonged encephalopathy dyspnea- on mechanical ventilation--> medically extubated 07/06, tolerating room air-->> later reintubated. CXR some improvement RLL, + consolidation LLL.CT chest neg acute process EXTUBATED again 07/09, tolerating NC , now tolerating room air encephalopathy- hx ? seizures. ? toxic metabolic encephalopathy.ammonia 07/03 =10. 07/09 -07/13 confused, not consistently following commands/non verbal not answering yes/no appropriately . 07/14 slow , slight improvement, more alert, still confused. 07/15 +significant dysphagia, still encephalopathic, 07/17 continues to have slow improvement encephalopathy, more alert and partially oriented =dysphagia- +severe dysphagia per barium swallow eval, NGT placed, --- status post PEG tube placement by IR today, tolerated procedure well. Planned for tube feed to be started == goals of care: I reviewed CODE STATUS with patient family multiple times including after most recent extubation. We have reviewed the alternative of ongoing aggressive interventions (including possible tracheostomy, feeding tube ) vs comfort directed treatment. Updated family 07/17, they remain optimistic and hopeful that patient may continue to improve. They are open to ongoing conversations regarding conditions and goals as condition evolves. == palliative care will follow to make recommendations for symptoms and to review goals of care as pt's condition evolves. Attestation To help prompt me to consider important information that might be impacting today's encounter and assessment, information from prior notes written by myself or my colleagues may have been "brought forward" into today's note. My signature on this note, however, is an attestation that I personally performed the exam, history, and/or decision-making noted today, and, unless otherwise indicated, the interactions with patient, family, and staff as well as the review of records all occurred today. I also attest that the listed assessment and stated plan reflect my best clinical judgment today based on the combination of historical information, prior notes, and today's exam/ interactions. When time spent is documented, it refers only to time spent today by the signer, or if indicated, combined time spent today by collaborating physician/nurse practitioner. Idalia Riggs Jul 17, 2017 17:10
--- NOTE | 2017-07-17 18:14 | PD.CARD.PN ---
Subjective Subjective Remarks alert, verbal appears oriented x 3 Objective Medications Current Medications Medications (Trade) Dose Ordered Sig/Salud Route Start Time Stop Time Status Last Admin (Narcan Inj) 0.4 mg UNSCH PRN IV PUSH 06/23/17 20:30 (D50w (Vial) Inj) 50 ml UNSCH PRN IV PUSH 06/24/17 17:00 07/09/17 15:53 (Glucagon Inj) 1 mg UNSCH PRN OTHER 06/24/17 17:00 (NS Flush) 2 ml UNSCH PRN IV FLUSH 06/24/17 17:00 07/17/17 08:30 (NS Flush) 2 ml BID IV FLUSH 06/24/17 21:00 07/17/17 08:30 (Zofran Inj) 4 mg Q6H PRN IV PUSH 06/24/17 17:00 07/05/17 17:24 (Albuterol Neb) 2.5 mg Q2HR NEB PRN INH 06/24/17 17:00 07/07/17 20:49 Miscellaneous Information 1 Q361D XX 06/24/17 18:00 (Chlorhexidine 2% Cloth) 3 pack Taper DAILY@04 TOP 06/25/17 04:00 06/21/18 03:59 07/16/17 04:00 (Chlorhexidine 2% Cloth) 3 pack UNSCH PRN TOP 06/24/17 17:00 (Keiry-Colace) 1 tab BID PO 06/24/17 21:00 07/15/17 20:35 (Senokot) 17.2 mg Q12H PRN PO 06/24/17 17:00 (Dulcolax Supp) 10 mg DAILY PRN RECTAL 06/24/17 17:00 (Lactulose Liq) 30 ml DAILY PRN PO 06/24/17 17:00 07/10/17 17:27 (Peridex 0.12% Liq) 15 ml BID@08,20 MT 06/24/17 20:00 07/15/17 20:00 (Brethine Inj) 1 mg UNSCH PRN SQ 06/24/17 19:30 (Tylenol 650 Mg/ 20 ml Liq) 650 mg Q6H PRN NG 06/25/17 08:45 07/12/17 15:40 (Lopressor Inj) 2.5 mg Q6H PRN IV PUSH 06/30/17 09:45 07/11/17 05:01 (Trandate Inj) 10 mg Q4H PRN IV PUSH 07/02/17 16:45 07/17/17 07:31 (Mycostatin Liq) 5 ml QID SWISH-SWAL 07/04/17 09:00 07/18/17 09:00 07/16/17 19:56 (Racepinephrine 2.25% Neb) 0.5 ml Q3HR NEB PRN NEB 07/08/17 12:30 07/09/17 10:43 (Diflucan) 100 mg DAILY PO 07/10/17 09:00 07/15/17 07:50 (NovoLIN R SUPPLEMENTAL SCALE) 1 ACHS SQ 07/12/17 12:00 (Lopressor) 50 mg Q6HR PO 07/12/17 12:00 Future Hold 07/16/17 05:57 (Lovenox Inj) 65 mg BID SQ 07/12/17 21:00 07/16/17 19:53 (Keppra) 500 mg Q12HR PO 07/12/17 21:00 07/15/17 20:35 (Protonix) 40 mg DAILY PO 07/13/17 09:00 07/15/17 07:50 (Prinivil) 2.5 mg DAILY PO 07/14/17 09:00 07/15/17 07:50 (Pill Splitter) 1 ea UNSCH PRN OTHER 07/13/17 14:00 Potassium Chloride 100 ml @ 50 mls/hr Q2H PRN IV 07/14/17 14:45 Potassium Chloride 100 ml @ 50 mls/hr Q2H PRN IV 07/14/17 14:45 07/16/17 23:30 (K-Lyte Cl Eff) 50 meq UNSCH PRN PO 07/14/17 14:45 Potassium Chloride 100 ml @ 25 mls/hr UNSCH PRN IV 07/14/17 14:45 Potassium Chloride 100 ml @ 50 mls/hr Q2H PRN IV 07/14/17 14:45 Magnesium Sulfate 4 gm/Sodium Chloride 100 ml @ 50 mls/hr UNSCH PRN IV 07/14/17 14:45 (Mag-Ox) 800 mg UNSCH PRN PO 07/14/17 14:45 Magnesium Sulfate 2 gm/Sodium Chloride 100 ml @ 50 mls/hr UNSCH PRN IV 07/14/17 14:45 (K-Phos) 2,000 mg Q4H PRN PO 07/14/17 14:45 Sodium Phosphate 30 mmol/Sodium Chloride 250 ml @ 42 mls/hr UNSCH PRN IV 07/14/17 14:45 (K-Phos) 2,000 mg UNSCH PRN PO/TUBE 07/14/17 14:45 Potassium Phosphate 30 mmol/ Sodium Chloride 260 ml @ 42 mls/hr UNSCH PRN IV 07/14/17 14:45 Sodium Chloride 1,000 ml @ 84 mls/hr [id number] IV 07/15/17 09:15 07/16/17 09:11 (Cardizem) 90 mg Q6HR PO 07/15/17 12:00 07/16/17 05:57 (Dilantin) 200 mg Q8HR PO 07/15/17 14:00 07/16/17 05:57 (Lopressor Inj) 2.5 mg Q6H IV PUSH 07/16/17 09:00 07/17/17 15:35 Potassium Cl/ Dextrose/Lact Ringer's 1,000 ml @ 84 mls/hr [id number] IV 07/16/17 17:00 07/17/17 17:34 (ZyPREXA ZYDIS ODT) 10 mg Q12HR PO 07/16/17 21:00 (Benadryl Inj) 25 mg Q6H PRN IV PUSH 07/16/17 18:00 07/16/17 18:09 Vital Signs / I&O Vital Signs Date Time Temp Pulse Resp B/P (MAP) Pulse Ox O2 Delivery O2 Flow Rate FiO2 07/17/17 16:00 98 07/17/17 16:00 99.6 98 18 164/80 (108) 100 07/17/17 15:21 106 17 145/71 (95) 99 07/17/17 13:28 107 21 180/74 (109) 100 07/17/17 13:00 104 23 179/82 (114) 100 07/17/17 12:00 99.4 112 31 166/66 (99) 94 07/17/17 12:00 112 07/17/17 11:00 98 24 158/93 (114) 100 07/17/17 10:00 93 07/17/17 10:00 93 21 160/86 (110) 100 07/17/17 09:00 91 21 134/60 (84) 100 07/17/17 08:00 98.0 93 19 130/66 (87) 100 07/17/17 08:00 91 07/17/17 07:36 95 17 171/82 (111) 89 07/17/17 07:00 91 17 207/79 (121) 98 07/17/17 06:00 93 07/17/17 04:00 92 07/17/17 04:00 98.2 92 21 128/58 (81) 97 07/17/17 02:00 91 07/17/17 00:00 92 07/17/17 00:00 97.8 92 18 148/70 (96) 99 07/16/17 22:00 87 07/16/17 20:00 98.0 90 21 185/81 (115) 73 07/16/17 20:00 90 07/16/17 20:00 107 I/O 07/16/17 07/16/17 07/16/17 07/17/17 07/17/17 07/17/17 07:00 15:00 23:00 07:00 15:00 23:00 Intake Total 100 ml 200 ml 300 ml 200 ml 100 ml 638 ml Output Total 150 ml 325 ml 530 ml Balance -50 ml 200 ml -25 ml -330 ml 100 ml 638 ml Intake Oral 0 ml IV Total 100 ml 200 ml 300 ml 200 ml 100 ml 638 ml Output Urine Total 200 ml 500 ml Stool Total 0 ml 0 ml Drainage Total 150 ml 125 ml 30 ml # Voids 3 3 # Bowel Movements 0 Physical Exam GENERAL: SKIN: Warm and dry. HEAD: Normocephalic. EYES: No scleral icterus. No injection or drainage. NECK: Supple, trachea midline. No JVD or lymphadenopathy. CARDIOVASCULAR: Regular rate and rhythm without murmurs, gallops, or rubs. RESPIRATORY: Breath sounds equal bilaterally. No accessory muscle use. GASTROINTESTINAL: Abdomen soft, non-tender, nondistended. MUSCULOSKELETAL: No cyanosis, or edema. BACK: Nontender without obvious deformity. No CVA tenderness. Laboratory Laboratory Tests Test 07/16/17 23:00 07/17/17 10:00 Sodium Level 141 MEQ/L Prothrombin Time 11.9 SEC Prothromb Time International Ratio 1.2 RATIO Potassium Level 4.1 MEQ/L Imaging Last 24 hours Impressions Gastrostomy Tube Placement 07/17/17 0000 Signed Impressions: Service Date/Time: Monday, July 17, 2017 13:56 - CONCLUSION: Uncomplicated gastrostomy tube placement as above. Akira Cullen MD Assessment and Plan Problem List: (1) Mitral regurgitation ICD Codes: I34.0 - Nonrheumatic mitral (valve) insufficiency (2) Bradycardia ICD Codes: R00.1 - Bradycardia, unspecified (3) Atrial fibrillation with RVR ICD Codes: I48.91 - Unspecified atrial fibrillation Status: Acute Assessment and Plan 1.) Cardiomyopathy - on lopressor, lisinopril 2.) Afib - re consult Dr Arellano, due to tachy-joe syndrome, tolerating lopressor, cardizem and lovenox, d/w Dr Roa and nurse, Dr Arellano following 3.) Severe mr - f/u ct surgery to determine if patient is a surgical candidate for potential mvr and cath if/when she is hemodynamically stable, patient consents and rx plan for cholecystitis defined Gianni Jeffers MD Jul 17, 2017 18:14
[2017-07-18] VITALS (21 sets, daily range): BP systolic 111–191; BP diastolic 56–84; PULSE 77–133; RESP 17–35; TEMP 98.1–98.9; O2SAT 96–100
[2017-07-18] MEDS: DILTIAZEM HCL 90 MG TAB PO SCH ×5 (00:20→23:06)
[2017-07-18] MEDS: NYSTATIN SUSP 500,000 U/5 ML CUP SWISH-SWAL SCH ×2 (00:20→09:04)
[2017-07-18] MEDS: PHENYTOIN SODIUM 100 MG CAP PO SCH ×4 (00:20→23:07)
[2017-07-18] MEDS: LABETALOL HCL 100 MG/20 ML VIAL IV PUSH PRN ×2 (02:03→11:09)
[2017-07-18] MEDS ORDERED: KETOROLAC TROMETHAMINE 30 MG/ML (IVP) VIAL IV PUSH ONE (02:45)
[2017-07-18] MEDS: CHLORHEXIDINE GLUCONATE 2 % 1 PACK (2 CLOTHS) TOP SCH (03:52)
[2017-07-18] MEDS: METOPROLOL TARTRATE 5 MG/5 ML VIAL IV PUSH SCH (03:52)
[2017-07-18] MEDS: INSULIN NovoLIN REGULAR SUPPLEMENTAL SCALE SQ SCH ×4 (08:00→20:25)
[2017-07-18] MEDS: CHLORHEXIDINE 0.12% (ORAL KIT) 15 ML CUP MT SCH ×2 (08:00→20:00)
[2017-07-18] MEDS: LISINOPRIL 5 MG TAB PO SCH (09:04)
[2017-07-18] MEDS: PANTOPRAZOLE SOD 40 MG DELAYED RELEASE TAB PO SCH (09:04)
[2017-07-18] MEDS: DOCUSATE SODIUM 50 MG/SENNA 8.6 MG TAB PO SCH ×2 (09:04→23:06)
[2017-07-18] MEDS: FLUCONAZOLE 100 MG TAB PO SCH (09:04)
[2017-07-18] MEDS: levETIRAcetam 500 MG TAB PO SCH ×2 (09:04→20:22)
[2017-07-18] MEDS: OLANZapine ODT 10 MG TAB PO SCH ×2 (09:04→20:22)
[2017-07-18] MEDS: ENOXAPARIN SODIUM 80 MG/0.8 ML SYRINGE SQ SCH (09:04)
[2017-07-18] MEDS: SODIUM CHLORIDE 0.9% FLUSH 10 ML FLUSH IV FLUSH SCH ×2 (09:26→20:25)
[2017-07-18] MEDS: SODIUM CHLORIDE 0.9% FLUSH 10 ML FLUSH IV FLUSH PRN (11:09)
--- NOTE | 2017-07-18 12:48 | PD.CARD.PN ---
Subjective Subjective Remarks restrained, less oriented this am but verbal in nad Objective Medications Current Medications Medications (Trade) Dose Ordered Sig/Salud Route Start Time Stop Time Status Last Admin (Narcan Inj) 0.4 mg UNSCH PRN IV PUSH 06/23/17 20:30 (D50w (Vial) Inj) 50 ml UNSCH PRN IV PUSH 06/24/17 17:00 07/09/17 15:53 (Glucagon Inj) 1 mg UNSCH PRN OTHER 06/24/17 17:00 (NS Flush) 2 ml UNSCH PRN IV FLUSH 06/24/17 17:00 07/18/17 11:09 (NS Flush) 2 ml BID IV FLUSH 06/24/17 21:00 07/18/17 09:26 (Zofran Inj) 4 mg Q6H PRN IV PUSH 06/24/17 17:00 07/05/17 17:24 (Albuterol Neb) 2.5 mg Q2HR NEB PRN INH 06/24/17 17:00 07/07/17 20:49 Miscellaneous Information 1 Q361D XX 06/24/17 18:00 (Chlorhexidine 2% Cloth) 3 pack Taper DAILY@04 TOP 06/25/17 04:00 06/21/18 03:59 07/18/17 03:52 (Chlorhexidine 2% Cloth) 3 pack UNSCH PRN TOP 06/24/17 17:00 (Keiry-Colace) 1 tab BID PO 06/24/17 21:00 07/18/17 09:04 (Senokot) 17.2 mg Q12H PRN PO 06/24/17 17:00 (Dulcolax Supp) 10 mg DAILY PRN RECTAL 06/24/17 17:00 (Lactulose Liq) 30 ml DAILY PRN PO 06/24/17 17:00 07/10/17 17:27 (Peridex 0.12% Liq) 15 ml BID@08,20 MT 06/24/17 20:00 07/15/17 20:00 (Brethine Inj) 1 mg UNSCH PRN SQ 06/24/17 19:30 (Tylenol 650 Mg/ 20 ml Liq) 650 mg Q6H PRN NG 06/25/17 08:45 07/12/17 15:40 (Lopressor Inj) 2.5 mg Q6H PRN IV PUSH 06/30/17 09:45 07/11/17 05:01 (Trandate Inj) 10 mg Q4H PRN IV PUSH 07/02/17 16:45 07/18/17 11:09 (Racepinephrine 2.25% Neb) 0.5 ml Q3HR NEB PRN NEB 07/08/17 12:30 07/09/17 10:43 (Diflucan) 100 mg DAILY PO 07/10/17 09:00 07/18/17 09:04 (NovoLIN R SUPPLEMENTAL SCALE) 1 ACHS SQ 07/12/17 12:00 (Lovenox Inj) 65 mg BID SQ 07/12/17 21:00 07/18/17 09:04 (Keppra) 500 mg Q12HR PO 07/12/17 21:00 07/18/17 09:04 (Protonix) 40 mg DAILY PO 07/13/17 09:00 07/18/17 09:04 (Prinivil) 2.5 mg DAILY PO 07/14/17 09:00 07/18/17 09:04 (Pill Splitter) 1 ea UNSCH PRN OTHER 07/13/17 14:00 Potassium Chloride 100 ml @ 50 mls/hr Q2H PRN IV 07/14/17 14:45 Potassium Chloride 100 ml @ 50 mls/hr Q2H PRN IV 07/14/17 14:45 07/16/17 23:30 (K-Lyte Cl Eff) 50 meq UNSCH PRN PO 07/14/17 14:45 Potassium Chloride 100 ml @ 25 mls/hr UNSCH PRN IV 07/14/17 14:45 Potassium Chloride 100 ml @ 50 mls/hr Q2H PRN IV 07/14/17 14:45 Magnesium Sulfate 4 gm/Sodium Chloride 100 ml @ 50 mls/hr UNSCH PRN IV 07/14/17 14:45 (Mag-Ox) 800 mg UNSCH PRN PO 07/14/17 14:45 Magnesium Sulfate 2 gm/Sodium Chloride 100 ml @ 50 mls/hr UNSCH PRN IV 07/14/17 14:45 (K-Phos) 2,000 mg Q4H PRN PO 07/14/17 14:45 Sodium Phosphate 30 mmol/Sodium Chloride 250 ml @ 42 mls/hr UNSCH PRN IV 07/14/17 14:45 (K-Phos) 2,000 mg UNSCH PRN PO/TUBE 07/14/17 14:45 Potassium Phosphate 30 mmol/ Sodium Chloride 260 ml @ 42 mls/hr UNSCH PRN IV 07/14/17 14:45 Sodium Chloride 1,000 ml @ 84 mls/hr [id number] IV 07/15/17 09:15 07/16/17 09:11 (Cardizem) 90 mg Q6HR PO 07/15/17 12:00 07/18/17 04:51 (Dilantin) 200 mg Q8HR PO 07/15/17 14:00 07/18/17 04:51 (ZyPREXA ZYDIS ODT) 10 mg Q12HR PO 07/16/17 21:00 07/18/17 09:04 (Benadryl Inj) 25 mg Q6H PRN IV PUSH 07/16/17 18:00 07/16/17 18:09 (Lopressor) 25 mg Q8HR G-TUBE 07/18/17 14:00 Vital Signs / I&O Vital Signs Date Time Temp Pulse Resp B/P (MAP) Pulse Ox O2 Delivery O2 Flow Rate FiO2 07/18/17 08:45 97 21 07/18/17 06:00 92 07/18/17 04:00 93 07/18/17 04:00 98.1 93 19 143/62 (89) 96 07/18/17 02:00 92 07/18/17 00:00 98.9 118 20 191/77 (115) 100 07/18/17 00:00 118 07/17/17 22:00 123 07/17/17 20:52 100 21 07/17/17 20:00 102 07/17/17 20:00 99.0 102 25 144/92 (109) 99 07/17/17 18:00 103 21 165/91 (115) 97 07/17/17 18:00 103 07/17/17 17:00 101 25 114/67 (83) 100 07/17/17 16:00 98 07/17/17 16:00 99.6 98 18 164/80 (108) 100 07/17/17 15:21 106 17 145/71 (95) 99 07/17/17 13:28 107 21 180/74 (109) 100 07/17/17 13:00 104 23 179/82 (114) 100 I/O 07/17/17 07/17/17 07/17/17 07/18/17 07/18/17 07/18/17 06:59 14:59 22:59 06:59 14:59 22:59 Intake Total 200 ml 100 ml 1138 ml 1430 ml 387 ml Output Total 530 ml 1090 ml 1110 ml Balance -330 ml 100 ml 48 ml 320 ml 387 ml IV Total 200 ml 100 ml 1138 ml 800 ml 387 ml Tube Feeding 130 ml Tube Irrigant 100 ml Other 400 ml Output Urine Total 500 ml 950 ml 950 ml Drainage Total 30 ml 140 ml 160 ml # Bowel Movements 1 2 Physical Exam GENERAL: SKIN: Warm and dry. HEAD: Normocephalic. EYES: No scleral icterus. No injection or drainage. NECK: Supple, trachea midline. No JVD or lymphadenopathy. CARDIOVASCULAR: Regular rate and rhythm without murmurs, gallops, or rubs. RESPIRATORY: Breath sounds equal bilaterally. No accessory muscle use. GASTROINTESTINAL: Abdomen soft, non-tender, nondistended. MUSCULOSKELETAL: No cyanosis, or edema. BACK: Nontender without obvious deformity. No CVA tenderness. Assessment and Plan Problem List: (1) Mitral regurgitation ICD Codes: I34.0 - Nonrheumatic mitral (valve) insufficiency (2) Bradycardia ICD Codes: R00.1 - Bradycardia, unspecified (3) Atrial fibrillation with RVR ICD Codes: I48.91 - Unspecified atrial fibrillation Status: Acute Assessment and Plan 1.) Cardiomyopathy - on lopressor, lisinopril 2.) Afib - re consult Dr Arellano, due to tachy-joe syndrome, tolerating lopressor, cardizem and lovenox, d/w Dr Roa and nurse, Dr Arellano following 3.) Severe mr - f/u ct surgery to determine if patient is a surgical candidate for potential mvr and cath if/when she is hemodynamically stable, patient consents and resolution of cholecystitis. She is s/p percutaneous GB drain tube insertion 07/17/17. Gianni Jeffers MD Jul 18, 2017 12:48
[2017-07-18] MEDS: METOPROLOL TARTRATE 25 MG TAB G-TUBE SCH ×2 (12:49→23:06)
[2017-07-18] MEDS ORDERED: ACETAMINOPHEN/HYDROcodone 325 MG/5 MG TAB PO PRN (15:00)
--- NOTE | 2017-07-18 15:25 | HHI.PR ---
Subjective Remarks Follow up for Tachy-Urbano syndrome, Afib, s/p perc cholecystostomy tube placement. Patient was seen earlier this morning. She is resting in bed, very cooperative and calm. No acute concerns including chest pain, shortness of breath, fever or chills. She is tolerating tube feed well. She wakes up and answers questions appropriately. Objective Vitals Vital Signs Date Time Temp Pulse Resp B/P (MAP) Pulse Ox O2 Delivery O2 Flow Rate FiO2 07/18/17 08:45 97 21 07/18/17 06:00 92 07/18/17 04:00 93 07/18/17 04:00 98.1 93 19 143/62 (89) 96 07/18/17 02:00 92 07/18/17 00:00 98.9 118 20 191/77 (115) 100 07/18/17 00:00 118 07/17/17 22:00 123 07/17/17 20:52 100 21 07/17/17 20:00 102 07/17/17 20:00 99.0 102 25 144/92 (109) 99 07/17/17 18:00 103 21 165/91 (115) 97 07/17/17 18:00 103 07/17/17 17:00 101 25 114/67 (83) 100 07/17/17 16:00 98 07/17/17 16:00 99.6 98 18 164/80 (108) 100 07/17/17 15:21 106 17 145/71 (95) 99 I/O 07/17/17 07/17/17 07/17/17 07/18/17 07/18/17 07/18/17 07:00 15:00 23:00 07:00 15:00 23:00 Intake Total 200 ml 100 ml 1138 ml 1430 ml 387 ml Output Total 530 ml 1090 ml 1110 ml Balance -330 ml 100 ml 48 ml 320 ml 387 ml IV Total 200 ml 100 ml 1138 ml 800 ml 387 ml Tube Feeding 130 ml Tube Irrigant 100 ml Other 400 ml Output Urine Total 500 ml 950 ml 950 ml Drainage Total 30 ml 140 ml 160 ml # Bowel Movements 1 2 Result Diagram: 07/15/17 0719 07/17/17 1000 Imaging Last Impressions Gastrostomy Tube Placement 07/17/17 0000 Signed Impressions: Service Date/Time: Monday, July 17, 2017 13:56 - CONCLUSION: Uncomplicated gastrostomy tube placement as above. Akira Cullen MD Modified Barium Swallow 07/15/17 0000 Signed Impressions: Service Date/Time: Saturday, July 15, 2017 11:14 - CONCLUSION: Please see speech pathology for full report. Ivan Contreras MD FACR Chest X-Ray 07/13/17 0600 Signed Impressions: Service Date/Time: Thursday, July 13, 2017 05:28 - CONCLUSION: Stable lingular scarring or atelectasis. The remainder of the lungs are clear. Floyd Magallanes MD Abdomen X-Ray 07/12/17 0000 Signed Impressions: Service Date/Time: Wednesday, July 12, 2017 12:26 - CONCLUSION: 1. Cholecystostomy tube. 2. There is only minimal stool evident within the cecum and adjacent colon. No definite findings to indicate constipation identified. King Contreras MD Chest CT 07/07/17 0000 Signed Impressions: Service Date/Time: Friday, July 07, 2017 10:35 - CONCLUSION: 1. Interval resolution of bilateral pleural effusions with improved airspace disease in the lower lobes in comparison to 06/24/2017. 2. Very subtle anterior pericardial effusion. Akira Cullen MD Abdomen/Pelvis CT 07/07/17 0000 Signed Impressions: Service Date/Time: Friday, July 07, 2017 10:35 - CONCLUSION: 1. No loculated fluid collections within the abdomen and pelvis to suggest abscess. Drainage catheter remains in right upper quadrant. 2. Improved basilar airspace consolidation in the lungs since June 24. 3. NG coiled in stomach. Ferguson catheter in decompressed bladder. No bowel obstruction, free fluid or free air. Leandro Palacios MD Brain MRI 06/27/17 0000 Signed Impressions: Service Date/Time: Tuesday, June 27, 2017 10:00 - CONCLUSION: 1. No acute intracranial abnormality. 2. Mild chronic small vessel ischemic change. Floyd Tiwari Jr., MD Head CT 06/24/17 1645 Signed Impressions: Service Date/Time: Saturday, June 24, 2017 18:00 - CONCLUSION: No acute disease. Brian Burnett MD Percutaneous Cholangiogram 06/24/17 0000 Signed Impressions: Service Date/Time: Saturday, June 24, 2017 20:36 - CONCLUSION: Uncomplicated percutaneous cholecystostomy as above. Lalo Wong MD Objective Remarks GENERAL: Alert, NAD. SKIN: Warm and dry. HEAD: Normocephalic. EYES: No scleral icterus. No injection or drainage. NECK: Supple, trachea midline. No JVD or lymphadenopathy. CARDIOVASCULAR: Regular rate and rhythm without murmurs, gallops, or rubs. RESPIRATORY: Breath sounds equal bilaterally. No accessory muscle use. GASTROINTESTINAL: Abdomen soft, non-tender, nondistended. Cholecystostomy tube in place. MUSCULOSKELETAL: No cyanosis, or edema. BACK: Nontender without obvious deformity. No CVA tenderness. Procedures Colonoscopy 06/30/2017 1. The colon mucosa was otherwise normal 2. Retroflexed views revealed no abnormalities EGD 06/30/2017 1. The esophagus was otherwise normal 2. Multiple small erosions were found in the gastric antrum; multiple biopsies was performed 3. Medium sized ulcer was found in the 1st part of the duodenum 4. Normal duodenal mucosa in the 2nd part of the duodenum 5. Retroflexion was performed and was normal 06/24/2017 Percutaneous Cholecystostomy tube placement. 06/25/2017 Echo Normal left ventricular size. Wall thickness is normal. The left ventricular systolic function is mildly reduced with an estimated ejection fraction in the range of 45- 50% The left atrial size is [id number] dilated. The right atrial size is [id number] dilated. Moderate to severe mitral valve regurgitation. There is moderate to severe tricuspid regurgitation. The estimated pulmonary arterial pressure is 32 mmHg. Date of Insertion: Jun 24, 2017 Date of Removal: Jul 09, 2017 Line: Central Venous Catheter Side: Right Location: Subclavian A/P Problem List: (1) Atrial fibrillation with RVR ICD Code: I48.91 - Unspecified atrial fibrillation Status: Acute (2) GERD (gastroesophageal reflux disease) ICD Code: K21.9 - Gastro-esophageal reflux disease without esophagitis (3) Anxiety ICD Code: F41.9 - Anxiety disorder, unspecified (4) Anemia ICD Code: D64.9 - Anemia, unspecified Status: Acute (5) Pulmonary edema ICD Code: J81.1 - Chronic pulmonary edema Assessment and Plan 57-year-old female with a medical history significant for atrial fibrillation, anxiety, GERD who presented to the hospital on 06/23/2017 with complaint of midepigastric discomfort and shortness of breath. Diltiazem drip was initially started and later switched to metoprolol 50mg Q8hrs. The patient became more somnolent on the floor and bradycardic with heart rates as low as 42. EKG revealed sinus bradycardia with a first-degree AV block. Patient was arousable and with good pain in 1-2 word responses but fell asleep immediately. On examination patient did have pain especially in her right upper quadrant. CBC revealed hemoglobin 8.4. Ammonia level 35. BNP of 341. Patient was intubated. Due to concern over seizure activity, neurology was consulted. Patient was started on anti-seizure meds. Patient required reintubation and eventually extubated on 07/08/2017. - Metabolic encephalopathy - Probable seizure disorder Currently on Keepra 500mg PO Q12hrs and Dilantin 200mg Q8hrs PO. EEG 06/25 revealed right frontal lobe sharp activity indicative of epileptiform. 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 Cardiothoracic surgery is following. If patient's mentation improves, cardiothoracic surgery will reevaluate for possible surgical intervention. Discontinue Lovenox 65 mg twice daily and start apixaban 5 mg twice daily. - Acute respiratory failure hypoxia - Right lower lobe pneumonia - Strep pneumo bacteremia. - Pleural effusion - Continue Unasyn, Albuterol neb - Nutrition - Dysphagia - Speech continues to recommend NPO. - Patient was not able to tolerate NG tube. Per palliative care notes, family wants aggressive care. - PEG tube placement 07/17/2017, currently on Jevity 1.5. Full code. Apixaban. Problem Qualifiers (1) Anemia: Qualified Codes: D64.9 - Anemia, unspecified Jillian De Souza DO Jul 18, 2017 3:25 pm
[2017-07-18] MEDS ORDERED: ACETAMINOPHEN 500 MG CPLT PO PRN (16:15)
[2017-07-18] MEDS: KETOROLAC TROMETHAMINE 30 MG/ML (IVP) VIAL IV PUSH PRN ×2 (16:26→23:06)
[2017-07-18] MEDS: QUEtiapine FUMARATE 25 MG TAB PO SCH (20:22)
[2017-07-18] MEDS: APIXABAN 5 MG TABLET PO SCH (20:22)
[2017-07-19] VITALS (15 sets, daily range): BP systolic 117–178; BP diastolic 69–111; PULSE 80–115; RESP 24–33; TEMP 98.1–99; O2SAT 91–100
[2017-07-19] MEDS: CHLORHEXIDINE GLUCONATE 2 % 1 PACK (2 CLOTHS) TOP SCH (04:00)
[2017-07-19] MEDS: LABETALOL HCL 100 MG/20 ML VIAL IV PUSH PRN (04:09)
[2017-07-19] MEDS: PHENYTOIN SODIUM 100 MG CAP PO SCH ×3 (06:00→21:06)
[2017-07-19] MEDS: DILTIAZEM HCL 90 MG TAB PO SCH ×3 (06:14→18:16)
[2017-07-19] MEDS: METOPROLOL TARTRATE 25 MG TAB G-TUBE SCH ×3 (06:14→21:06)
[2017-07-19] MEDS: INSULIN NovoLIN REGULAR SUPPLEMENTAL SCALE SQ SCH ×4 (08:00→20:35)
[2017-07-19] MEDS: CHLORHEXIDINE 0.12% (ORAL KIT) 15 ML CUP MT SCH ×2 (08:00→20:00)
[2017-07-19] MEDS: FLUCONAZOLE 100 MG TAB PO SCH (08:10)
[2017-07-19] MEDS: APIXABAN 5 MG TABLET PO SCH ×2 (08:10→20:35)
[2017-07-19] MEDS: PANTOPRAZOLE SOD 40 MG DELAYED RELEASE TAB PO SCH (08:17)
[2017-07-19] MEDS: LISINOPRIL 5 MG TAB PO SCH (08:17)
[2017-07-19] MEDS: OLANZapine ODT 10 MG TAB PO SCH ×2 (08:17→20:35)
[2017-07-19] MEDS: QUEtiapine FUMARATE 25 MG TAB PO SCH ×2 (08:18→20:35)
[2017-07-19] MEDS: DOCUSATE SODIUM 50 MG/SENNA 8.6 MG TAB PO SCH ×2 (09:00→20:35)
[2017-07-19] MEDS: REMOVE OLD PATCH T-DERMAL SCH (09:00)
[2017-07-19] MEDS: levETIRAcetam 500 MG TAB PO SCH ×2 (09:00→20:38)
[2017-07-19] MEDS: SODIUM CHLORIDE 0.9% FLUSH 10 ML FLUSH IV FLUSH SCH ×2 (12:22→20:36)
[2017-07-19] MEDS: KETOROLAC TROMETHAMINE 30 MG/ML (IVP) VIAL IV PUSH PRN (15:16)
--- NOTE | 2017-07-19 15:57 | PD.CARD.PN ---
Subjective Subjective Remarks verbal, slightly confused in nad, restraints are off Objective Medications Current Medications Medications (Trade) Dose Ordered Sig/Salud Route Start Time Stop Time Status Last Admin (Narcan Inj) 0.4 mg UNSCH PRN IV PUSH 06/23/17 20:30 (D50w (Vial) Inj) 50 ml UNSCH PRN IV PUSH 06/24/17 17:00 07/09/17 15:53 (Glucagon Inj) 1 mg UNSCH PRN OTHER 06/24/17 17:00 (NS Flush) 2 ml UNSCH PRN IV FLUSH 06/24/17 17:00 07/18/17 11:09 (NS Flush) 2 ml BID IV FLUSH 06/24/17 21:00 07/19/17 12:22 (Zofran Inj) 4 mg Q6H PRN IV PUSH 06/24/17 17:00 07/05/17 17:24 (Albuterol Neb) 2.5 mg Q2HR NEB PRN INH 06/24/17 17:00 07/07/17 20:49 Miscellaneous Information 1 Q361D XX 06/24/17 18:00 (Chlorhexidine 2% Cloth) Taper DAILY@04 TOP 06/25/17 04:00 06/21/18 03:59 07/18/17 03:52 (Chlorhexidine 2% Cloth) 3 pack UNSCH PRN TOP 06/24/17 17:00 (Keiry-Colace) 1 tab BID PO 06/24/17 21:00 07/19/17 09:00 (Senokot) 17.2 mg Q12H PRN PO 06/24/17 17:00 (Dulcolax Supp) 10 mg DAILY PRN RECTAL 06/24/17 17:00 (Lactulose Liq) 30 ml DAILY PRN PO 06/24/17 17:00 07/10/17 17:27 (Peridex 0.12% Liq) 15 ml BID@08,20 MT 06/24/17 20:00 07/15/17 20:00 (Brethine Inj) 1 mg UNSCH PRN SQ 06/24/17 19:30 (Lopressor Inj) 2.5 mg Q6H PRN IV PUSH 06/30/17 09:45 07/11/17 05:01 (Trandate Inj) 10 mg Q4H PRN IV PUSH 07/02/17 16:45 07/19/17 04:09 (Racepinephrine 2.25% Neb) 0.5 ml Q3HR NEB PRN NEB 07/08/17 12:30 07/09/17 10:43 (Diflucan) 100 mg DAILY PO 07/10/17 09:00 07/19/17 08:10 (NovoLIN R SUPPLEMENTAL SCALE) 1 ACHS SQ 07/12/17 12:00 (Keppra) 500 mg Q12HR PO 07/12/17 21:00 07/18/17 20:22 (Protonix) 40 mg DAILY PO 07/13/17 09:00 07/19/17 08:17 (Prinivil) 2.5 mg DAILY PO 07/14/17 09:00 07/19/17 08:17 (Pill Splitter) 1 ea UNSCH PRN OTHER 07/13/17 14:00 Potassium Chloride 100 ml @ 50 mls/hr Q2H PRN IV 07/14/17 14:45 Potassium Chloride 100 ml @ 50 mls/hr Q2H PRN IV 07/14/17 14:45 07/16/17 23:30 (K-Lyte Cl Eff) 50 meq UNSCH PRN PO 07/14/17 14:45 Potassium Chloride 100 ml @ 25 mls/hr UNSCH PRN IV 07/14/17 14:45 Potassium Chloride 100 ml @ 50 mls/hr Q2H PRN IV 07/14/17 14:45 Magnesium Sulfate 4 gm/Sodium Chloride 100 ml @ 50 mls/hr UNSCH PRN IV 07/14/17 14:45 (Mag-Ox) 800 mg UNSCH PRN PO 07/14/17 14:45 Magnesium Sulfate 2 gm/Sodium Chloride 100 ml @ 50 mls/hr UNSCH PRN IV 07/14/17 14:45 (K-Phos) 2,000 mg Q4H PRN PO 07/14/17 14:45 Sodium Phosphate 30 mmol/Sodium Chloride 250 ml @ 42 mls/hr UNSCH PRN IV 07/14/17 14:45 (K-Phos) 2,000 mg UNSCH PRN PO/TUBE 07/14/17 14:45 Potassium Phosphate 30 mmol/ Sodium Chloride 260 ml @ 42 mls/hr UNSCH PRN IV 07/14/17 14:45 (Cardizem) 90 mg Q6HR PO 07/15/17 12:00 07/19/17 12:22 (Dilantin) 200 mg Q8HR PO 07/15/17 14:00 07/19/17 14:19 (ZyPREXA ZYDIS ODT) 10 mg Q12HR PO 07/16/17 21:00 07/19/17 08:17 (Benadryl Inj) 25 mg Q6H PRN IV PUSH 07/16/17 18:00 07/16/17 18:09 (Lopressor) 25 mg Q8HR G-TUBE 07/18/17 14:00 07/19/17 14:20 (Tylenol 650 Mg/ 20 ml Liq) 500 mg Q6H PRN NG 07/18/17 15:00 (Toradol Inj) 15 mg Q6H PRN IV PUSH 07/18/17 15:00 07/21/17 14:59 07/19/17 15:16 (Eliquis) 5 mg BID PO 07/18/17 21:00 07/19/17 08:10 (Tylenol) 500 mg Q6H PRN PO 07/18/17 16:15 (Habitrol 14 Mg Patch.24 Hr) 1 patch DAILY T-DERMAL 07/18/17 16:15 Miscellaneous Information 1 DAILY T-DERMAL 07/19/17 09:00 (SEROquel) 25 mg BID PO 07/18/17 21:00 07/19/17 08:18 Vital Signs / I&O Vital Signs Date Time Temp Pulse Resp B/P (MAP) Pulse Ox O2 Delivery O2 Flow Rate FiO2 07/19/17 10:00 107 07/19/17 08:00 94 07/19/17 08:00 98.1 94 32 165/74 (104) 98 07/19/17 06:00 90 07/19/17 06:00 90 24 164/84 (110) 98 07/19/17 05:00 102 33 177/93 (121) 91 07/19/17 04:00 98.2 103 32 163/111 (128) 94 07/19/17 04:00 103 07/19/17 03:00 85 25 176/78 (110) 100 07/19/17 02:00 95 29 141/97 (112) 07/19/17 02:00 95 07/19/17 01:00 88 30 117/80 (92) 07/19/17 00:00 80 07/19/17 00:00 98.5 80 26 145/78 (100) 100 07/18/17 23:00 102 26 157/70 (99) 99 07/18/17 22:00 87 25 159/68 (98) 97 07/18/17 22:00 87 07/18/17 21:00 90 17 111/56 (74) 99 07/18/17 20:00 85 07/18/17 20:00 98.9 85 24 170/71 (104) 99 07/18/17 19:06 98 21 07/18/17 19:00 102 30 162/84 (110) 97 07/18/17 18:00 88 07/18/17 17:00 90 07/18/17 16:00 98.1 98 35 168/83 (111) 100 07/18/17 16:00 133 I/O 07/18/17 07/18/17 07/18/17 07/19/17 07/19/17 07/19/17 07:00 15:00 23:00 07:00 15:00 23:00 Intake Total 1430 ml 387 ml 779 ml 867 ml Output Total 1110 ml 900 ml 720 ml Balance 320 ml 387 ml -121 ml 147 ml IV Total 800 ml 387 ml Tube Feeding 130 ml 379 ml 467 ml Tube Irrigant 100 ml Other 400 ml 400 ml 400 ml Output Urine Total 950 ml 900 ml 500 ml Drainage Total 160 ml 220 ml # Bowel Movements 2 0 0 Physical Exam GENERAL: SKIN: Warm and dry. HEAD: Normocephalic. EYES: No scleral icterus. No injection or drainage. NECK: Supple, trachea midline. No JVD or lymphadenopathy. CARDIOVASCULAR: Regular rate and rhythm without murmurs, gallops, or rubs. RESPIRATORY: Breath sounds equal bilaterally. No accessory muscle use. GASTROINTESTINAL: Abdomen soft, non-tender, nondistended. MUSCULOSKELETAL: No cyanosis, or edema. BACK: Nontender without obvious deformity. No CVA tenderness. Assessment and Plan Problem List: (1) Mitral regurgitation ICD Codes: I34.0 - Nonrheumatic mitral (valve) insufficiency (2) Bradycardia ICD Codes: R00.1 - Bradycardia, unspecified (3) Atrial fibrillation with RVR ICD Codes: I48.91 - Unspecified atrial fibrillation Status: Acute Assessment and Plan 1.) Cardiomyopathy - on lopressor, lisinopril 2.) Afib - re consult Dr Arellano, due to tachy-joe syndrome, tolerating lopressor, cardizem and lovenox, d/w Dr Roa and nurse, Dr Arellano following 3.) Severe mr - f/u ct surgery to determine if patient is a surgical candidate for potential mvr and cath if/when she is hemodynamically stable, patient consents and resolution of cholecystitis. She is s/p percutaneous GB drain tube insertion 07/17/17. Gianni Jeffers MD Jul 19, 2017 15:57
--- NOTE | 2017-07-19 16:17 | HHI.PR ---
Subjective Remarks Follow up for Tachy-Urbano syndrome, Afib, s/p perc cholecystostomy tube placement. Patient is resting in bed. However she appears to be confused and hallucinating as we speak. No fever or chills. She is tolerating tube feeds well. Objective Vitals Vital Signs Date Time Temp Pulse Resp B/P (MAP) Pulse Ox O2 Delivery O2 Flow Rate FiO2 07/19/17 10:00 107 07/19/17 08:00 94 07/19/17 08:00 98.1 94 32 165/74 (104) 98 07/19/17 06:00 90 07/19/17 06:00 90 24 164/84 (110) 98 07/19/17 05:00 102 33 177/93 (121) 91 07/19/17 04:00 98.2 103 32 163/111 (128) 94 07/19/17 04:00 103 07/19/17 03:00 85 25 176/78 (110) 100 07/19/17 02:00 95 29 141/97 (112) 07/19/17 02:00 95 07/19/17 01:00 88 30 117/80 (92) 07/19/17 00:00 80 07/19/17 00:00 98.5 80 26 145/78 (100) 100 07/18/17 23:00 102 26 157/70 (99) 99 07/18/17 22:00 87 25 159/68 (98) 97 07/18/17 22:00 87 07/18/17 21:00 90 17 111/56 (74) 99 07/18/17 20:00 85 07/18/17 20:00 98.9 85 24 170/71 (104) 99 07/18/17 19:06 98 21 07/18/17 19:00 102 30 162/84 (110) 97 07/18/17 18:00 88 07/18/17 17:00 90 I/O 07/18/17 07/18/17 07/18/17 07/19/17 07/19/17 07/19/17 07:00 15:00 23:00 07:00 15:00 23:00 Intake Total 1430 ml 387 ml 779 ml 867 ml Output Total 1110 ml 900 ml 720 ml Balance 320 ml 387 ml -121 ml 147 ml IV Total 800 ml 387 ml Tube Feeding 130 ml 379 ml 467 ml Tube Irrigant 100 ml Other 400 ml 400 ml 400 ml Output Urine Total 950 ml 900 ml 500 ml Drainage Total 160 ml 220 ml # Bowel Movements 2 0 0 Result Diagram: 07/15/17 0719 07/17/17 1000 Objective Remarks GENERAL: Alert, NAD. SKIN: Warm and dry. HEAD: Normocephalic. EYES: No scleral icterus. No injection or drainage. NECK: Supple, trachea midline. No JVD or lymphadenopathy. CARDIOVASCULAR: Regular rate and rhythm without murmurs, gallops, or rubs. RESPIRATORY: Breath sounds equal bilaterally. No accessory muscle use. GASTROINTESTINAL: Abdomen soft, non-tender, nondistended. Cholecystostomy tube in place. MUSCULOSKELETAL: No cyanosis, or edema. BACK: Nontender without obvious deformity. No CVA tenderness. Procedures Colonoscopy 06/30/2017 1. The colon mucosa was otherwise normal 2. Retroflexed views revealed no abnormalities EGD 06/30/2017 1. The esophagus was otherwise normal 2. Multiple small erosions were found in the gastric antrum; multiple biopsies was performed 3. Medium sized ulcer was found in the 1st part of the duodenum 4. Normal duodenal mucosa in the 2nd part of the duodenum 5. Retroflexion was performed and was normal 06/24/2017 Percutaneous Cholecystostomy tube placement. 06/25/2017 Echo Normal left ventricular size. Wall thickness is normal. The left ventricular systolic function is mildly reduced with an estimated ejection fraction in the range of 45- 50% The left atrial size is [id number]-[id number] dilated. The right atrial size is [id number] dilated. Moderate to severe mitral valve regurgitation. There is moderate to severe tricuspid regurgitation. The estimated pulmonary arterial pressure is 32 mmHg. Date of Insertion: Jun 24, 2017 Date of Removal: Jul 09, 2017 Line: Central Venous Catheter Side: Right Location: Subclavian A/P Problem List: (1) Atrial fibrillation with RVR ICD Code: I48.91 - Unspecified atrial fibrillation Status: Acute (2) GERD (gastroesophageal reflux disease) ICD Code: K21.9 - Gastro-esophageal reflux disease without esophagitis (3) Anxiety ICD Code: F41.9 - Anxiety disorder, unspecified (4) Anemia ICD Code: D64.9 - Anemia, unspecified Status: Acute (5) Pulmonary edema ICD Code: J81.1 - Chronic pulmonary edema Assessment and Plan 57-year-old female with a medical history significant for atrial fibrillation, anxiety, GERD who presented to the hospital on 06/23/2017 with complaint of midepigastric discomfort and shortness of breath. Diltiazem drip was initially started and later switched to metoprolol 50mg Q8hrs. The patient became more somnolent on the floor and bradycardic with heart rates as low as 42. EKG revealed sinus bradycardia with a first-degree AV block. Patient was arousable and with good pain in 1-2 word responses but fell asleep immediately. On examination patient did have pain especially in her right upper quadrant. CBC revealed hemoglobin 8.4. Ammonia level 35. BNP of 341. Patient was intubated. Due to concern over seizure activity, neurology was consulted. Patient was started on anti-seizure meds. Patient required reintubation and eventually extubated on 07/08/2017. - Metabolic encephalopathy - Probable ICU delirium - Probable seizure disorder Currently on Keepra 500mg PO Q12hrs and Dilantin 200mg Q8hrs PO. EEG 06/25 revealed right frontal lobe sharp activity indicative of epileptiform. EEG 06/28- no epileptiform activity 06/27 MRI brain-no acute intracranial abnormality Patient was much more lucid last two days. However, significant delirium, hallucination today. Will get a psychiatry consult - patient is currently on Olanzapine and low dose Seroquel. May benefit from Risperidone instead.. 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 Cardiothoracic surgery is following. If patient's mentation improves, cardiothoracic surgery will reevaluate for possible surgical intervention. Discontinue Lovenox 65 mg twice daily and start apixaban 5 mg twice daily. - Acute respiratory failure hypoxia - Right lower lobe pneumonia - Strep pneumo bacteremia. - Pleural effusion - Continue Unasyn, Albuterol neb - Nutrition - Dysphagia - Speech continues to recommend NPO. - Patient was not able to tolerate NG tube. Per palliative care notes, family wants aggressive care. - PEG tube placement 07/17/2017, currently on Jevity 1.5. Full code. Apixaban. Problem Qualifiers (1) Anemia: Qualified Codes: D64.9 - Anemia, unspecified Jillian De Souza DO Jul 19, 2017 16:17
[2017-07-20] VITALS (14 sets, daily range): BP systolic 134–171; BP diastolic 71–88; PULSE 85–127; RESP 17–25; TEMP 98.1–99.5; O2SAT 94–97
[2017-07-20] MEDS: DILTIAZEM HCL 90 MG TAB PO SCH ×4 (00:20→18:27)
[2017-07-20] MEDS: PHENYTOIN SODIUM 100 MG CAP PO SCH ×3 (05:31→21:40)
[2017-07-20] MEDS: METOPROLOL TARTRATE 25 MG TAB G-TUBE SCH ×3 (05:31→21:41)
[2017-07-20] MEDS: CHLORHEXIDINE GLUCONATE 2 % 1 PACK (2 CLOTHS) TOP SCH ×2 (05:33→21:42)
[2017-07-20] MEDS: INSULIN NovoLIN REGULAR SUPPLEMENTAL SCALE SQ SCH ×3 (08:00→21:00)
[2017-07-20] MEDS: APIXABAN 5 MG TABLET PO SCH ×2 (08:48→21:41)
[2017-07-20] MEDS: QUEtiapine FUMARATE 25 MG TAB PO SCH ×2 (08:48→21:41)
[2017-07-20] MEDS: LISINOPRIL 5 MG TAB PO SCH (08:48)
[2017-07-20] MEDS: OLANZapine ODT 10 MG TAB PO SCH (08:48)
[2017-07-20] MEDS: levETIRAcetam 500 MG TAB PO SCH ×2 (08:48→21:41)
[2017-07-20] MEDS: FLUCONAZOLE 100 MG TAB PO SCH (08:49)
[2017-07-20] MEDS: SODIUM CHLORIDE 0.9% FLUSH 10 ML FLUSH IV FLUSH SCH ×2 (08:49→21:41)
[2017-07-20] MEDS: PANTOPRAZOLE SOD 40 MG DELAYED RELEASE TAB PO SCH (08:50)
[2017-07-20] MEDS: DOCUSATE SODIUM 50 MG/SENNA 8.6 MG TAB PO SCH ×2 (08:51→21:40)
[2017-07-20] MEDS: REMOVE OLD PATCH T-DERMAL SCH (09:00)
--- NOTE | 2017-07-20 09:08 | HHI.IDPN ---
Note Infectious Disease Note is a 57-year-old with PMHx of COPD, GERD, hypertension, cardiovascular problems that presented to the hospital on 06/23/2017 for complaints of epigastric and abdominal pain, nausea vomiting, shortness of breath. ID following for leucocytosis, acute cholecystitis and pneumonia. Seizure new onset. Still in ICU. Not on pressors. Pleasantly confused. Patient remains on room air. She is awake and answer simple questions. No distress. Afebrile. Repeat blood culture on 07/09 - 1 bottle as coag negative staph Previous blood culture on 07/07 had strep species in 1 of 4 bottles. Antibiotics Fluconazole Lines Peripheral line site with no e.o infection Past Medical History reviewed Allergies: Coded Allergies: Sulfa (Sulfonamide Antibiotics) (Verified Allergy, Unknown, 06/23/17) ciprofloxacin (Verified Allergy, Unknown, 06/23/17) hydromorphone (Verified Allergy, Unknown, 06/23/17) Current Medications Medications (Trade) Dose Ordered Sig/Salud Route Start Time Stop Time Status Last Admin (Narcan Inj) 0.4 mg UNSCH PRN IV PUSH 06/23/17 20:30 (D50w (Vial) Inj) 50 ml UNSCH PRN IV PUSH 06/24/17 17:00 07/09/17 15:53 (Glucagon Inj) 1 mg UNSCH PRN OTHER 06/24/17 17:00 (NS Flush) 2 ml UNSCH PRN IV FLUSH 06/24/17 17:00 07/18/17 11:09 (NS Flush) 2 ml BID IV FLUSH 06/24/17 21:00 07/20/17 08:49 (Zofran Inj) 4 mg Q6H PRN IV PUSH 06/24/17 17:00 07/05/17 17:24 (Albuterol Neb) 2.5 mg Q2HR NEB PRN INH 06/24/17 17:00 07/07/17 20:49 Miscellaneous Information 1 Q361D XX 06/24/17 18:00 (Chlorhexidine 2% Cloth) Taper DAILY@04 TOP 06/25/17 04:00 06/21/18 03:59 07/20/17 05:33 (Chlorhexidine 2% Cloth) 3 pack UNSCH PRN TOP 06/24/17 17:00 (Keiry-Colace) 1 tab BID PO 2/28/18 21:00 07/19/17 20:35 (Senokot) 17.2 mg Q12H PRN PO 06/24/17 17:00 (Dulcolax Supp) 10 mg DAILY PRN RECTAL 06/24/17 17:00 (Lactulose Liq) 30 ml DAILY PRN PO 06/24/17 17:00 07/10/17 17:27 (Peridex 0.12% Liq) 15 ml BID@08,20 MT 06/24/17 20:00 07/15/17 20:00 (Brethine Inj) 1 mg UNSCH PRN SQ 06/24/17 19:30 (Lopressor Inj) 2.5 mg Q6H PRN IV PUSH 06/30/17 09:45 07/11/17 05:01 (Trandate Inj) 10 mg Q4H PRN IV PUSH 07/02/17 16:45 07/19/17 04:09 (Racepinephrine 2.25% Neb) 0.5 ml Q3HR NEB PRN NEB 07/08/17 12:30 07/09/17 10:43 (Diflucan) 100 mg DAILY PO 07/10/17 09:00 07/20/17 08:49 (NovoLIN R SUPPLEMENTAL SCALE) 1 ACHS SQ 07/12/17 12:00 (Keppra) 500 mg Q12HR PO 07/12/17 21:00 07/20/17 08:48 (Protonix) 40 mg DAILY PO 07/13/17 09:00 07/19/17 08:17 (Prinivil) 2.5 mg DAILY PO 07/14/17 09:00 07/20/17 08:48 (Pill Splitter) 1 ea UNSCH PRN OTHER 07/13/17 14:00 Potassium Chloride 100 ml @ 50 mls/hr Q2H PRN IV 07/14/17 14:45 Potassium Chloride 100 ml @ 50 mls/hr Q2H PRN IV 07/14/17 14:45 07/16/17 23:30 (K-Lyte Cl Eff) 50 meq UNSCH PRN PO 07/14/17 14:45 Potassium Chloride 100 ml @ 25 mls/hr UNSCH PRN IV 07/14/17 14:45 Potassium Chloride 100 ml @ 50 mls/hr Q2H PRN IV 07/14/17 14:45 Magnesium Sulfate 4 gm/Sodium Chloride 100 ml @ 50 mls/hr UNSCH PRN IV 07/14/17 14:45 (Mag-Ox) 800 mg UNSCH PRN PO 07/14/17 14:45 Magnesium Sulfate 2 gm/Sodium Chloride 100 ml @ 50 mls/hr UNSCH PRN IV 07/14/17 14:45 (K-Phos) 2,000 mg Q4H PRN PO 07/14/17 14:45 Sodium Phosphate 30 mmol/Sodium Chloride 250 ml @ 42 mls/hr UNSCH PRN IV 07/14/17 14:45 (K-Phos) 2,000 mg UNSCH PRN PO/TUBE 07/14/17 14:45 Potassium Phosphate 30 mmol/ Sodium Chloride 260 ml @ 42 mls/hr UNSCH PRN IV 07/14/17 14:45 (Cardizem) 90 mg Q6HR PO 07/15/17 12:00 07/20/17 05:31 (Dilantin) 200 mg Q8HR PO 07/15/17 14:00 07/20/17 05:31 (ZyPREXA ZYDIS ODT) 10 mg Q12HR PO 07/16/17 21:00 07/20/17 08:48 (Benadryl Inj) 25 mg Q6H PRN IV PUSH 07/16/17 18:00 07/16/17 18:09 (Lopressor) 25 mg Q8HR G-TUBE 07/18/17 14:00 07/20/17 05:31 (Tylenol 650 Mg/ 20 ml Liq) 500 mg Q6H PRN NG 07/18/17 15:00 (Toradol Inj) 15 mg Q6H PRN IV PUSH 07/18/17 15:00 07/21/17 14:59 07/19/17 15:16 (Eliquis) 5 mg BID PO 07/18/17 21:00 07/20/17 08:48 (Tylenol) 500 mg Q6H PRN PO 07/18/17 16:15 (Habitrol 14 Mg Patch.24 Hr) 1 patch DAILY T-DERMAL 07/18/17 16:15 Miscellaneous Information 1 DAILY T-DERMAL 07/19/17 09:00 (SEROquel) 25 mg BID PO 07/18/17 21:00 07/20/17 08:48 Objective Vital Signs Date Time Temp Pulse Resp B/P (MAP) Pulse Ox O2 Delivery O2 Flow Rate FiO2 07/20/17 08:14 96 07/20/17 06:00 92 07/20/17 04:00 90 07/20/17 04:00 98.1 90 17 144/71 (95) 94 07/20/17 02:00 85 07/20/17 00:00 97 07/20/17 00:00 98.4 97 18 152/87 (108) 94 07/19/17 22:00 108 07/19/17 20:00 101 07/19/17 20:00 98.6 101 178/82 (114) 98 07/19/17 18:00 112 07/19/17 16:16 24 07/19/17 16:00 98 07/19/17 16:00 98.8 98 172/108 (129) 98 07/19/17 14:00 115 07/19/17 12:00 100 07/19/17 12:00 99.0 100 164/69 (100) 98 07/19/17 10:00 107 Laboratory Tests Test 07/13/17 06:47 07/14/17 12:05 White Blood Count 12.4 TH/MM3 10.2 TH/MM3 Red Blood Count 4.33 MIL/MM3 4.16 MIL/MM3 Hemoglobin 9.4 GM/DL 9.1 GM/DL Hematocrit 31.3 % 30.2 % Mean Corpuscular Volume 72.4 FL 72.5 FL Mean Corpuscular Hemoglobin 21.6 PG 21.9 PG Mean Corpuscular Hemoglobin Concent 29.9 % 30.1 % Red Cell Distribution Width 22.3 % 22.5 % Platelet Count 525 TH/MM3 564 TH/MM3 Mean Platelet Volume 8.2 FL 8.3 FL Neutrophils (%) (Auto) 85.7 % 83.1 % Lymphocytes (%) (Auto) 6.3 % 7.6 % Monocytes (%) (Auto) 7.5 % 8.0 % Eosinophils (%) (Auto) 0.2 % 0.8 % Basophils (%) (Auto) 0.3 % 0.5 % Neutrophils # (Auto) 10.6 TH/MM3 8.5 TH/MM3 Lymphocytes # (Auto) 0.8 TH/MM3 0.8 TH/MM3 Monocytes # (Auto) 0.9 TH/MM3 0.8 TH/MM3 Eosinophils # (Auto) 0.0 TH/MM3 0.1 TH/MM3 Basophils # (Auto) 0.0 TH/MM3 0.0 TH/MM3 CBC Comment DIFF FINAL DIFF FINAL Differential Comment Laboratory Tests Test 07/13/17 06:47 07/14/17 12:05 Blood Urea Nitrogen 34 MG/DL 33 MG/DL Creatinine 0.88 MG/DL 0.91 MG/DL Random Glucose 96 MG/DL 89 MG/DL Total Protein 8.5 GM/DL Albumin 3.4 GM/DL Calcium Level 10.5 MG/DL 11.2 MG/DL Phosphorus Level 3.5 MG/DL 3.2 MG/DL Magnesium Level 2.0 MG/DL 1.9 MG/DL Alkaline Phosphatase 256 U/L Aspartate Amino Transf (AST/SGOT) 48 U/L Alanine Aminotransferase (ALT/SGPT) 52 U/L Total Bilirubin 0.9 MG/DL Sodium Level 150 MEQ/L 150 MEQ/L Potassium Level 3.5 MEQ/L 3.1 MEQ/L Chloride Level 112 MEQ/L 115 MEQ/L Carbon Dioxide Level 24.3 MEQ/L 23.2 MEQ/L Anion Gap 14 MEQ/L 12 MEQ/L Estimat Glomerular Filtration Rate 66 ML/MIN 63 ML/MIN B-Type Natriuretic Peptide 183 PG/ML Microbiology Date/Time Source Procedure Growth Status 07/12/17 16:10 Urine Random Urine Urine Culture - Final NO GROWTH IN 48 HOURS. Complete Imaging reviewed Last Impressions Gastrostomy Tube Placement 07/17/17 0000 Signed Impressions: Service Date/Time: Monday, July 17, 2017 13:56 - CONCLUSION: Uncomplicated gastrostomy tube placement as above. Akira Cullen MD Modified Barium Swallow 07/15/17 0000 Signed Impressions: Service Date/Time: Saturday, July 15, 2017 11:14 - CONCLUSION: Please see speech pathology for full report. Ivan Contreras MD FACR Chest X-Ray 07/13/17 0600 Signed Impressions: Service Date/Time: Thursday, July 13, 2017 05:28 - CONCLUSION: Stable lingular scarring or atelectasis. The remainder of the lungs are clear. Floyd Magallanes MD Abdomen X-Ray 07/12/17 0000 Signed Impressions: Service Date/Time: Wednesday, July 12, 2017 12:26 - CONCLUSION: 1. Cholecystostomy tube. 2. There is only minimal stool evident within the cecum and adjacent colon. No definite findings to indicate constipation identified. King Contreras MD Chest CT 07/07/17 0000 Signed Impressions: Service Date/Time: Friday, July 07, 2017 10:35 - CONCLUSION: 1. Interval resolution of bilateral pleural effusions with improved airspace disease in the lower lobes in comparison to 06/24/2017. 2. Very subtle anterior pericardial effusion. Akira Cullen MD Abdomen/Pelvis CT 07/07/17 0000 Signed Impressions: Service Date/Time: Friday, July 07, 2017 10:35 - CONCLUSION: 1. No loculated fluid collections within the abdomen and pelvis to suggest abscess. Drainage catheter remains in right upper quadrant. 2. Improved basilar airspace consolidation in the lungs since June 24. 3. NG coiled in stomach. Ferguson catheter in decompressed bladder. No bowel obstruction, free fluid or free air. Leandro Palacios MD Brain MRI 06/27/17 0000 Signed Impressions: Service Date/Time: Tuesday, June 27, 2017 10:00 - CONCLUSION: 1. No acute intracranial abnormality. 2. Mild chronic small vessel ischemic change. Floyd Tiwari Jr., MD Head CT 06/24/17 1645 Signed Impressions: Service Date/Time: Saturday, June 24, 2017 18:00 - CONCLUSION: No acute disease. Brian Burnett MD Percutaneous Cholangiogram 06/24/17 0000 Signed Impressions: Service Date/Time: Saturday, June 24, 2017 20:36 - CONCLUSION: Uncomplicated percutaneous cholecystostomy as above. Lalo Wong MD Chest X-Ray 07/13/17 0600 Signed Impressions: Service Date/Time: Thursday, July 13, 2017 05:28 - CONCLUSION: Stable lingular scarring or atelectasis. The remainder of the lungs are clear. Floyd Magallanes MD Physical Exam GENERAL: No acute distress. HEENT: Pupils reactive to light. Extraocular movements intact. No icterus. NECK: Supple without adenopathy. No swelling. LUNGS: Clear decreased breath sounds. HEART: Regular S1-S2. No murmurs or rubs or gallops. ABDOMEN: Coarse sounds present, soft, nontender. EXTREMITIES: No clubbing cyanosis or edema. SKIN: No rash. NEUROLOGIC: No gross focal findings. PSYCH: Calm and cooperative. She appears withdrawn. Assessment Severe Sepsis present on admission. Improved. Pneumonia ? HCAP vs aspiration in health care setting. Acute cholecystitis s/p cholecystostomy tube placement. Seizure new onset ? alcohol related. Fevers: ? drug fever ? Vanco IV vs new infection. Normal WBC at time of initial consult. Acute resp failure. Post ventilator. Extubated. Acute metabolic encephalopathy: sepsis, seizures, metabolic. Acute renal failure: ? lasix, prerenal. Kidney function improved. Patient is clinically stable. Recommendations DC Diflucan. Continue to observe off antibiotics. Monitor clinical status. tanya RN Will sign off please call back if any change in clinical condition or questions. Nella Florian MD Jul 20, 2017 09:08
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
--- NOTE | 2017-07-20 15:23 | PD.CARD.PN ---
Subjective Subjective Remarks oriented x 2-3, slightly confused, restrained Objective Medications Current Medications Medications (Trade) Dose Ordered Sig/Salud Route Start Time Stop Time Status Last Admin (Narcan Inj) 0.4 mg UNSCH PRN IV PUSH 06/23/17 20:30 (D50w (Vial) Inj) 50 ml UNSCH PRN IV PUSH 06/24/17 17:00 07/09/17 15:53 (Glucagon Inj) 1 mg UNSCH PRN OTHER 06/24/17 17:00 (NS Flush) 2 ml UNSCH PRN IV FLUSH 06/24/17 17:00 07/18/17 11:09 (NS Flush) 2 ml BID IV FLUSH 06/24/17 21:00 07/20/17 08:49 (Zofran Inj) 4 mg Q6H PRN IV PUSH 06/24/17 17:00 07/05/17 17:24 (Albuterol Neb) 2.5 mg Q2HR NEB PRN INH 06/24/17 17:00 07/07/17 20:49 Miscellaneous Information 1 Q361D XX 06/24/17 18:00 (Chlorhexidine 2% Cloth) Taper DAILY@04 TOP 06/25/17 04:00 06/21/18 03:59 07/20/17 05:33 (Chlorhexidine 2% Cloth) 3 pack UNSCH PRN TOP 06/24/17 17:00 (Keiry-Colace) 1 tab BID PO 06/24/17 21:00 07/19/17 20:35 (Senokot) 17.2 mg Q12H PRN PO 06/24/17 17:00 (Dulcolax Supp) 10 mg DAILY PRN RECTAL 06/24/17 17:00 (Lactulose Liq) 30 ml DAILY PRN PO 06/24/17 17:00 07/10/17 17:27 (Peridex 0.12% Liq) 15 ml BID@08,20 MT 06/24/17 20:00 07/15/17 20:00 (Brethine Inj) 1 mg UNSCH PRN SQ 06/24/17 19:30 (Lopressor Inj) 2.5 mg Q6H PRN IV PUSH 06/30/17 09:45 07/11/17 05:01 (Trandate Inj) 10 mg Q4H PRN IV PUSH 07/02/17 16:45 07/19/17 04:09 (Racepinephrine 2.25% Neb) 0.5 ml Q3HR NEB PRN NEB 07/08/17 12:30 07/09/17 10:43 (NovoLIN R SUPPLEMENTAL SCALE) 1 ACHS SQ 07/12/17 12:00 (Keppra) 500 mg Q12HR PO 07/12/17 21:00 07/20/17 08:48 (Protonix) 40 mg DAILY PO 07/13/17 09:00 07/19/17 08:17 (Prinivil) 2.5 mg DAILY PO 07/14/17 09:00 07/20/17 08:48 (Pill Splitter) 1 ea UNSCH PRN OTHER 07/13/17 14:00 Potassium Chloride 100 ml @ 50 mls/hr Q2H PRN IV 07/14/17 14:45 Potassium Chloride 100 ml @ 50 mls/hr Q2H PRN IV 07/14/17 14:45 07/16/17 23:30 (K-Lyte Cl Eff) 50 meq UNSCH PRN PO 07/14/17 14:45 Potassium Chloride 100 ml @ 25 mls/hr UNSCH PRN IV 07/14/17 14:45 Potassium Chloride 100 ml @ 50 mls/hr Q2H PRN IV 07/14/17 14:45 Magnesium Sulfate 4 gm/Sodium Chloride 100 ml @ 50 mls/hr UNSCH PRN IV 07/14/17 14:45 (Mag-Ox) 800 mg UNSCH PRN PO 07/14/17 14:45 Magnesium Sulfate 2 gm/Sodium Chloride 100 ml @ 50 mls/hr UNSCH PRN IV 07/14/17 14:45 (K-Phos) 2,000 mg Q4H PRN PO 07/14/17 14:45 Sodium Phosphate 30 mmol/Sodium Chloride 250 ml @ 42 mls/hr UNSCH PRN IV 07/14/17 14:45 (K-Phos) 2,000 mg UNSCH PRN PO/TUBE 07/14/17 14:45 Potassium Phosphate 30 mmol/ Sodium Chloride 260 ml @ 42 mls/hr UNSCH PRN IV 07/14/17 14:45 (Cardizem) 90 mg Q6HR PO 07/15/17 12:00 07/20/17 05:31 (Dilantin) 200 mg Q8HR PO 07/15/17 14:00 07/20/17 05:31 (Benadryl Inj) 25 mg Q6H PRN IV PUSH 07/16/17 18:00 07/16/17 18:09 (Lopressor) 25 mg Q8HR G-TUBE 07/18/17 14:00 07/20/17 05:31 (Tylenol 650 Mg/ 20 ml Liq) 500 mg Q6H PRN NG 07/18/17 15:00 (Toradol Inj) 15 mg Q6H PRN IV PUSH 07/18/17 15:00 07/21/17 14:59 07/19/17 15:16 (Eliquis) 5 mg BID PO 07/18/17 21:00 07/20/17 08:48 (Tylenol) 500 mg Q6H PRN PO 07/18/17 16:15 (Habitrol 14 Mg Patch.24 Hr) 1 patch DAILY T-DERMAL 07/18/17 16:15 Miscellaneous Information 1 DAILY T-DERMAL 07/19/17 09:00 (SEROquel) 50 mg BID PO 07/20/17 21:00 (Haldol Inj) 2 mg Q8H PRN IM 07/20/17 13:30 Vital Signs / I&O Vital Signs Date Time Temp Pulse Resp B/P (MAP) Pulse Ox O2 Delivery O2 Flow Rate FiO2 07/20/17 08:14 96 07/20/17 08:00 98.2 85 24 171/78 (109) 96 07/20/17 08:00 85 07/20/17 06:00 92 07/20/17 04:00 90 07/20/17 04:00 98.1 90 17 144/71 (95) 94 07/20/17 02:00 85 07/20/17 00:00 97 07/20/17 00:00 98.4 97 18 152/87 (108) 94 07/19/17 22:00 108 07/19/17 20:00 101 07/19/17 20:00 98.6 101 178/82 (114) 98 07/19/17 18:00 112 07/19/17 16:16 24 07/19/17 16:00 98 07/19/17 16:00 98.8 98 172/108 (129) 98 I/O 07/19/17 07/19/17 07/19/17 07/20/17 07/20/17 07/20/17 07:00 15:00 23:00 07:00 15:00 23:00 Intake Total 867 ml 956 ml Output Total 720 ml 710 ml 250 ml Balance 147 ml -710 ml 706 ml Tube Feeding 467 ml 556 ml Other 400 ml 400 ml Output Urine Total 500 ml 500 ml Drainage Total 220 ml 210 ml 250 ml # Voids 2 # Bowel Movements 0 1 0 Physical Exam GENERAL: SKIN: Warm and dry. HEAD: Normocephalic. EYES: No scleral icterus. No injection or drainage. NECK: Supple, trachea midline. No JVD or lymphadenopathy. CARDIOVASCULAR: Regular rate and rhythm without murmurs, gallops, or rubs. RESPIRATORY: Breath sounds equal bilaterally. No accessory muscle use. GASTROINTESTINAL: Abdomen soft, non-tender, nondistended. MUSCULOSKELETAL: No cyanosis, or edema. BACK: Nontender without obvious deformity. No CVA tenderness. Assessment and Plan Problem List: (1) Mitral regurgitation ICD Codes: I34.0 - Nonrheumatic mitral (valve) insufficiency (2) Bradycardia ICD Codes: R00.1 - Bradycardia, unspecified (3) Atrial fibrillation with RVR ICD Codes: I48.91 - Unspecified atrial fibrillation Status: Acute Assessment and Plan 1.) Cardiomyopathy - on lopressor, lisinopril 2.) Afib - re consult Dr Arellano, due to tachy-joe syndrome, tolerating lopressor, cardizem and lovenox, d/w Dr Roa and nurse, Dr Arellano following 3.) Severe mr - f/u ct surgery to determine if patient is a surgical candidate for potential mvr and cath if/when she is hemodynamically stable, patient consents and resolution of cholecystitis. She is s/p percutaneous GB drain tube insertion 07/17/17. Gianni Jeffers MD Jul 20, 2017 15:23
--- NOTE | 2017-07-20 15:29 | HHI.PR ---
Subjective Remarks Follow up for Tachy-Urbano syndrome, Afib, s/p perc cholecystostomy tube placement, intermittent delirium. Patient appears to be more coherent today. She is calm and cooperative. Tolerating tube feed well. No fever or chills. Objective Vitals Vital Signs Date Time Temp Pulse Resp B/P (MAP) Pulse Ox O2 Delivery O2 Flow Rate FiO2 07/20/17 08:14 96 07/20/17 08:00 98.2 85 24 171/78 (109) 96 07/20/17 08:00 85 07/20/17 06:00 92 07/20/17 04:00 90 07/20/17 04:00 98.1 90 17 144/71 (95) 94 07/20/17 02:00 85 07/20/17 00:00 97 07/20/17 00:00 98.4 97 18 152/87 (108) 94 07/19/17 22:00 108 07/19/17 20:00 101 07/19/17 20:00 98.6 101 178/82 (114) 98 07/19/17 18:00 112 07/19/17 16:16 24 07/19/17 16:00 98 07/19/17 16:00 98.8 98 172/108 (129) 98 I/O 07/19/17 07/19/17 07/19/17 07/20/17 07/20/17 07/20/17 07:00 15:00 23:00 07:00 15:00 23:00 Intake Total 867 ml 956 ml Output Total 720 ml 710 ml 250 ml Balance 147 ml -710 ml 706 ml Tube Feeding 467 ml 556 ml Other 400 ml 400 ml Output Urine Total 500 ml 500 ml Drainage Total 220 ml 210 ml 250 ml # Voids 2 # Bowel Movements 0 1 0 Result Diagram: 07/17/17 1000 Imaging Last Impressions Gastrostomy Tube Placement 07/17/17 0000 Signed Impressions: Service Date/Time: Monday, July 17, 2017 13:56 - CONCLUSION: Uncomplicated gastrostomy tube placement as above. Akira Cullen MD Modified Barium Swallow 07/15/17 0000 Signed Impressions: Service Date/Time: Saturday, July 15, 2017 11:14 - CONCLUSION: Please see speech pathology for full report. Ivan Contreras MD FACR Chest X-Ray 3/19/18 0600 Signed Impressions: Service Date/Time: Thursday, July 13, 2017 05:28 - CONCLUSION: Stable lingular scarring or atelectasis. The remainder of the lungs are clear. Floyd Magallanes MD Abdomen X-Ray 07/12/17 0000 Signed Impressions: Service Date/Time: Wednesday, July 12, 2017 12:26 - CONCLUSION: 1. Cholecystostomy tube. 2. There is only minimal stool evident within the cecum and adjacent colon. No definite findings to indicate constipation identified. King Contreras MD Chest CT 07/07/17 0000 Signed Impressions: Service Date/Time: Friday, July 07, 2017 10:35 - CONCLUSION: 1. Interval resolution of bilateral pleural effusions with improved airspace disease in the lower lobes in comparison to 06/24/2017. 2. Very subtle anterior pericardial effusion. Akira Cullen MD Abdomen/Pelvis CT 07/07/17 0000 Signed Impressions: Service Date/Time: Friday, July 07, 2017 10:35 - CONCLUSION: 1. No loculated fluid collections within the abdomen and pelvis to suggest abscess. Drainage catheter remains in right upper quadrant. 2. Improved basilar airspace consolidation in the lungs since June 24. 3. NG coiled in stomach. Ferguson catheter in decompressed bladder. No bowel obstruction, free fluid or free air. Leandro Palacios MD Brain MRI 06/27/17 0000 Signed Impressions: Service Date/Time: Tuesday, June 27, 2017 10:00 - CONCLUSION: 1. No acute intracranial abnormality. 2. Mild chronic small vessel ischemic change. Floyd Tiwari Jr., MD Head CT 06/24/17 1645 Signed Impressions: Service Date/Time: Saturday, June 24, 2017 18:00 - CONCLUSION: No acute disease. Brian Burnett MD Percutaneous Cholangiogram 06/24/17 0000 Signed Impressions: Service Date/Time: Saturday, June 24, 2017 20:36 - CONCLUSION: Uncomplicated percutaneous cholecystostomy as above. Lalo Wong MD Objective Remarks GENERAL: Alert, NAD. SKIN: Warm and dry. HEAD: Normocephalic. EYES: No scleral icterus. No injection or drainage. NECK: Supple, trachea midline. No JVD or lymphadenopathy. CARDIOVASCULAR: Regular rate and rhythm without murmurs, gallops, or rubs. RESPIRATORY: Breath sounds equal bilaterally. No accessory muscle use. GASTROINTESTINAL: Abdomen soft, non-tender, nondistended. Cholecystostomy tube in place. MUSCULOSKELETAL: No cyanosis, or edema. BACK: Nontender without obvious deformity. No CVA tenderness. Procedures Colonoscopy 06/30/2017 1. The colon mucosa was otherwise normal 2. Retroflexed views revealed no abnormalities EGD 06/30/2017 1. The esophagus was otherwise normal 2. Multiple small erosions were found in the gastric antrum; multiple biopsies was performed 3. Medium sized ulcer was found in the 1st part of the duodenum 4. Normal duodenal mucosa in the 2nd part of the duodenum 5. Retroflexion was performed and was normal 06/24/2017 Percutaneous Cholecystostomy tube placement. 06/25/2017 Echo Normal left ventricular size. Wall thickness is normal. The left ventricular systolic function is mildly reduced with an estimated ejection fraction in the range of 45- 50% The left atrial size is yikufesa-[id number] dilated. The right atrial size is pqyzcrqb-ka-leyipibz dilated. Moderate to severe mitral valve regurgitation. There is moderate to severe tricuspid regurgitation. The estimated pulmonary arterial pressure is 32 mmHg. Date of Insertion: Jun 24, 2017 Date of Removal: Jul 09, 2017 Line: Central Venous Catheter Side: Right Location: Subclavian A/P Problem List: (1) Atrial fibrillation with RVR ICD Code: I48.91 - Unspecified atrial fibrillation Status: Acute (2) GERD (gastroesophageal reflux disease) ICD Code: K21.9 - Gastro-esophageal reflux disease without esophagitis (3) Anxiety ICD Code: F41.9 - Anxiety disorder, unspecified (4) Anemia ICD Code: D64.9 - Anemia, unspecified Status: Acute (5) Pulmonary edema ICD Code: J81.1 - Chronic pulmonary edema Assessment and Plan 57-year-old female with a medical history significant for atrial fibrillation, anxiety, GERD who presented to the hospital on 06/23/2017 with complaint of midepigastric discomfort and shortness of breath. Diltiazem drip was initially started and later switched to metoprolol 50mg Q8hrs. The patient became more somnolent on the floor and bradycardic with heart rates as low as 42. EKG revealed sinus bradycardia with a first-degree AV block. Patient was arousable and with good pain in 1-2 word responses but fell asleep immediately. On examination patient did have pain especially in her right upper quadrant. CBC revealed hemoglobin 8.4. Ammonia level 35. BNP of 341. Patient was intubated. Due to concern over seizure activity, neurology was consulted. Patient was started on anti-seizure meds. Patient required reintubation and eventually extubated on 07/08/2017. - Metabolic encephalopathy - Probable ICU delirium - Probable seizure disorder Currently on Keepra 500mg PO Q12hrs and Dilantin 200mg Q8hrs PO. EEG 06/25 revealed right frontal lobe sharp activity indicative of epileptiform. EEG 06/28- no epileptiform activity 06/27 MRI brain-no acute intracranial abnormality Patient was much more lucid last two days. However, significant delirium, hallucination today. Appreciate psychiatry input. Psychiatry increase Seroquel to 50 mg twice daily. Will watch patient on current psychiatry medications today. Currently there are no new medical concerns. We might be able to clear patient from medical standpoint and send her to med-psych. 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 Cardiothoracic surgery is following. If patient's mentation improves, cardiothoracic surgery will reevaluate for possible surgical intervention. Continue apixaban 5 mg twice daily. - Acute respiratory failure hypoxia - Right lower lobe pneumonia - Strep pneumo bacteremia. - Pleural effusion - Continue Albuterol neb. Will watch patient off antibiotics. - Nutrition - Dysphagia - Speech continues to recommend NPO. - Patient was not able to tolerate NG tube. Per palliative care notes, family wants aggressive care. - PEG tube placement 07/17/2017, currently on Jevity 1.5. Full code. Apixaban. Problem Qualifiers (1) Anemia: Qualified Codes: D64.9 - Anemia, unspecified Jillian De Souza DO Jul 20, 2017 3:29 pm
[2017-07-20] MEDS: CHLORHEXIDINE 0.12% (ORAL KIT) 15 ML CUP MT SCH (19:10)
[2017-07-20] MEDS: diphenhydrAMINE HCL 50 MG/ML VIAL IV PUSH PRN (19:58)
[2017-07-20] MEDS: HALOPERIDOL LACTATE 5 MG/ML AMP IM PRN (19:59)
[2017-07-21] VITALS (12 sets, daily range): BP systolic 104–160; BP diastolic 78–94; PULSE 71–163; RESP 18–34; TEMP 97.9–99; O2SAT 86–99
[2017-07-21] MEDS: DILTIAZEM HCL 90 MG TAB PO SCH ×5 (00:42→23:19)
[2017-07-21] MEDS: METOPROLOL TARTRATE 25 MG TAB G-TUBE SCH ×3 (05:09→21:30)
[2017-07-21] MEDS: PHENYTOIN SODIUM 100 MG CAP PO SCH ×3 (05:09→21:30)
[2017-07-21] MEDS: INSULIN NovoLIN REGULAR SUPPLEMENTAL SCALE SQ SCH ×4 (08:00→21:00)
[2017-07-21] MEDS: CHLORHEXIDINE 0.12% (ORAL KIT) 15 ML CUP MT SCH ×2 (08:00→20:00)
[2017-07-21] MEDS: REMOVE OLD PATCH T-DERMAL SCH (09:00)
[2017-07-21] MEDS: PANTOPRAZOLE SOD 40 MG DELAYED RELEASE TAB PO SCH (09:00)
[2017-07-21] MEDS: DOCUSATE SODIUM 50 MG/SENNA 8.6 MG TAB PO SCH ×2 (09:00→21:30)
[2017-07-21] MEDS: QUEtiapine FUMARATE 25 MG TAB PO SCH ×2 (09:24→21:30)
[2017-07-21] MEDS: levETIRAcetam 500 MG TAB PO SCH ×2 (09:24→21:29)
[2017-07-21] MEDS: LISINOPRIL 5 MG TAB PO SCH (09:24)
[2017-07-21] MEDS: APIXABAN 5 MG TABLET PO SCH ×2 (09:25→21:30)
[2017-07-21] MEDS: SODIUM CHLORIDE 0.9% FLUSH 10 ML FLUSH IV FLUSH SCH ×2 (09:25→21:30)
[2017-07-21] MEDS: HALOPERIDOL LACTATE 5 MG/ML AMP IM PRN ×2 (15:40→23:20)
[2017-07-21] MEDS: diphenhydrAMINE HCL 50 MG/ML VIAL IV PUSH PRN ×2 (15:40→21:29)
--- NOTE | 2017-07-21 16:33 | HHI.HCPN ---
Reason for visit a. To assist with evaluation and management of symptoms including: dyspnea. pain b. To assist medical decision maker(s) with: better understanding of current medical conditions; weighing benefits/burdens of medical treatment options; making medical treatment decisions. Subjective/Interval History Patient seen in follow-up on comfort, goals. Medically extubated 07/09, resp status remains stable. Encephalopathy slowly improving. Status post barium swallow evaluation with significant dysphagia s/ p PEG tube. ST following, cont to recommend NPO. HR continues to be A. fib, rate controlled. PT, OT following. Pt able to stand /ambulate w PT. No new labs or imaging. More confused today per nursing. She was started on scheduled Seroquel yesterday, PRN haldol for agitation. Has received haldol 2mg x1 yesterday, x1 today, about an hour ago. Seen in room, no visitors present. She is alert, she c/o thirst and "they wont give her water or coffee". Explain dysphagia, PEG tube. She is confused, more so than the last time I saw her a few days ago. She tells me she is ready to go outside, and to call her children. She is oriented to family. She is completely confused to hospital, situation. She wants a cigarette and coffee. She denies pain. . Advance Directives Living Will: Never completed Health Care Surrogate: Never completed Durable Power of Track Laying Supervisor: Never completed Objective Vital Signs Date Time Temp Pulse Resp B/P (MAP) Pulse Ox O2 Delivery O2 Flow Rate FiO2 07/21/17 14:00 94 07/21/17 12:00 98.4 97 18 159/80 (106) 99 07/21/17 12:00 97 07/21/17 10:00 103 07/21/17 08:00 91 07/21/17 08:00 98.3 91 25 148/80 (102) 99 07/21/17 06:00 71 07/21/17 04:00 99.0 126 26 159/94 (115) 99 07/21/17 04:00 126 07/21/17 02:00 90 07/21/17 00:00 98.8 94 24 160/78 (105) 98 07/21/17 00:00 94 07/20/17 22:00 113 07/20/17 20:00 98.4 127 24 141/79 (99) 96 07/20/17 20:00 127 07/20/17 19:24 95 07/20/17 18:00 97 Intake & Output 07/21/17 07/21/17 07:00 19:00 Intake Total 935 ml Output Total 210 ml Balance 725 ml Tube Feeding 535 ml Tube Irrigant 400 ml Drainage Total 210 ml # Voids 1 Physical Exam CONSTITUTIONAL/GENERAL: This is an adequately nourished patient, alert, confused TUBES/LINES/DRAINS: Rt abdomen cholecystomy tube. wick external catheter, PEG tube under abdominal binder SKIN: slight jaundice. Few scattered healed round lesions to arms. Skin warm/ dry NECK: Trachea midline. Supple, nontender. No palpable thyroid enlargement or nodularity. CARDIOVASCULAR: Irregular rate and rhythm without murmur, rate 90s. Peripheral pulses symmetric. RESPIRATORY/CHEST: Symmetric, unlabored respirations on RA.Clear to auscultation. Breath sounds equal bilaterally. GASTROINTESTINAL: Abdomen soft, + tenderness to mid abdomen dressing over new PEG clean and dry, abdominal binder present.. No palpable masses. Bowel sounds present.Drain from rt side mod amt brownish yellow present GENITOURINARY: Without palpable bladder distension. external wick catheter in place. NEUROLOGICAL: Alert, oriented to person, family otherwise confused with no insight to hospitalization. She does follow commands. She moves all 4 extremities. PSYCHIATRIC: mildly anxious at times, no apparent hallucination Diagnostic Tests Result Diagram: 07/17/17 1000 Procedures 07/09 extubated 07/06 extubated- reintubated 07/06 Assessment and Plan Disease Oriented Problem List: (1) Atrial fibrillation with RVR (2) Anemia (3) Pulmonary edema (4) Cholecystitis (5) Cardiomyopathy (6) Acute encephalopathy (7) Hypertension (8) Tachy-joe syndrome (9) Severe mitral regurgitation (10) Diastolic heart failure (11) Sepsis (12) GERD (gastroesophageal reflux disease) Symptom Scale: (1) Dyspnea 0-10 Scale: Unable to quantify (2) Pain 0-10 Scale: Unable to quantify (3) Encephalopathy 0-10 Scale: Unable to quantify Pertinent Non-Medical Issues Psychosocial: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 Spiritual:none listed. Legal:Pt is . Currently has 4 children Billy Mcqueen, Kenneth [phone] Yaneth; [phone] Health care proxy are the 4 children. Ethical issues impacting care:none Important Contacts Son: Kenneth [phone] dtr Yaneth [phone]. dtr Charisse [phone] son Billy [phone] . Prognosis 57 year old prognosis is guarded. She has been extubated twice during this hospitalization. She remains encephalopathic. Now with dysphagia. Remains high risk for ongoing complications and decline. Code Status: Full Code Plan ==Code: FULL CODE == Decision maker- pt currently does not capacity to make medical decisions.pt is . No advance directives. [place] Statutes proxy would be pt's four children: Kenneth, Yaneth, Charisse, and Billy. (family indicated they are OK w Kenneth serving as spokesperson.) == symptoms: pain- acute cholecystitis, now bedbound. Today tender w abdominal exam, unable to qualify. Cautious use opiates / AMS/encephalopathy,recent medical extubation. Patient status post PEG tube placement today; planes of tenderness around site has been given prn by nursing, monitor for effectiveness. Continued cautious use of any opiates given prolonged encephalopathy dyspnea- on mechanical ventilation--> medically extubated 07/06, tolerating room air-->> later reintubated. CXR some improvement RLL, + consolidation LLL.CT chest neg acute process EXTUBATED again 07/09, tolerating NC , now tolerating room air encephalopathy- hx ? seizures. ? toxic metabolic encephalopathy.ammonia 07/03 =10. 07/09 -07/13 confused, not consistently following commands/non verbal not answering yes/no appropriately . 07/14 slow , slight improvement, more alert, still confused. 07/15 +significant dysphagia, still encephalopathic, 07/17 continues to have slow improvement encephalopathy, more alert and partially oriented =dysphagia- +severe dysphagia per barium swallow eval, NGT placed, --- status post PEG tube placement by IR today, tolerated procedure well. Planned for tube feed to be started == goals of care: I reviewed CODE STATUS with patient family multiple times including after most recent extubation. We have reviewed the alternative of ongoing aggressive interventions (including possible tracheostomy, feeding tube ) vs comfort directed treatment. Updated family 07/17, they remain optimistic and hopeful that patient may continue to improve. They are open to ongoing conversations regarding conditions and goals as condition evolves. 3.27 pt condition not significantly changed. == palliative care will follow to make recommendations for symptoms and to review goals of care as pt's condition evolves. Attestation To help prompt me to consider important information that might be impacting today's encounter and assessment, information from prior notes written by myself or my colleagues may have been "brought forward" into today's note. My signature on this note, however, is an attestation that I personally performed the exam, history, and/or decision-making noted today, and, unless otherwise indicated, the interactions with patient, family, and staff as well as the review of records all occurred today. I also attest that the listed assessment and stated plan reflect my best clinical judgment today based on the combination of historical information, prior notes, and today's exam/ interactions. When time spent is documented, it refers only to time spent today by the signer, or if indicated, combined time spent today by collaborating physician/nurse practitioner. Idalia Riggs Jul 21, 2017 16:33
--- NOTE | 2017-07-21 16:34 | HHI.PR ---
Subjective Remarks Follow up for Tachy-Urbano syndrome, Afib, s/p perc cholecystostomy tube placement, intermittent delirium. Arteries resting in bed. She continues to have hallucinations. She believes people were smoking in the room yesterday. She wants a cigarette. No chest pain, shortness of breath, fever or chills. She is tolerating tube feed well. Objective Vitals Vital Signs Date Time Temp Pulse Resp B/P (MAP) Pulse Ox O2 Delivery O2 Flow Rate FiO2 07/21/17 14:00 94 07/21/17 12:00 98.4 97 18 159/80 (106) 99 07/21/17 12:00 97 07/21/17 10:00 103 07/21/17 08:00 91 07/21/17 08:00 98.3 91 25 148/80 (102) 99 07/21/17 06:00 71 07/21/17 04:00 99.0 126 26 159/94 (115) 99 07/21/17 04:00 126 07/21/17 02:00 90 07/21/17 00:00 98.8 94 24 160/78 (105) 98 07/21/17 00:00 94 07/20/17 22:00 113 07/20/17 20:00 98.4 127 24 141/79 (99) 96 07/20/17 20:00 127 07/20/17 19:24 95 07/20/17 18:00 97 I/O 07/20/17 07/20/17 07/20/17 07/21/17 07/21/17 07/21/17 06:59 14:59 22:59 06:59 14:59 22:59 Intake Total 956 ml 987 ml 935 ml Output Total 250 ml 890 ml 210 ml Balance 706 ml 97 ml 725 ml Tube Feeding 556 ml 587 ml 535 ml Tube Irrigant 400 ml Other 400 ml 400 ml Output Urine Total 800 ml Drainage Total 250 ml 90 ml 210 ml # Voids 2 1 # Bowel Movements 0 1 Result Diagram: 07/17/17 1000 Objective Remarks GENERAL: Alert, NAD. SKIN: Warm and dry. HEAD: Normocephalic. EYES: No scleral icterus. No injection or drainage. NECK: Supple, trachea midline. No JVD or lymphadenopathy. CARDIOVASCULAR: Regular rate and rhythm without murmurs, gallops, or rubs. RESPIRATORY: Breath sounds equal bilaterally. No accessory muscle use. GASTROINTESTINAL: Abdomen soft, non-tender, nondistended. Cholecystostomy tube in place. MUSCULOSKELETAL: No cyanosis, or edema. BACK: Nontender without obvious deformity. No CVA tenderness. Procedures Colonoscopy 06/30/2017 1. The colon mucosa was otherwise normal 2. Retroflexed views revealed no abnormalities EGD 06/30/2017 1. The esophagus was otherwise normal 2. Multiple small erosions were found in the gastric antrum; multiple biopsies was performed 3. Medium sized ulcer was found in the 1st part of the duodenum 4. Normal duodenal mucosa in the 2nd part of the duodenum 5. Retroflexion was performed and was normal 06/24/2017 Percutaneous Cholecystostomy tube placement. 06/25/2017 Echo Normal left ventricular size. Wall thickness is normal. The left ventricular systolic function is mildly reduced with an estimated ejection fraction in the range of 45- 50% The left atrial size is angpiblq-oh-lgrtjmog dilated. The right atrial size is lbfqlgyb-do-odspekas dilated. Moderate to severe mitral valve regurgitation. There is moderate to severe tricuspid regurgitation. The estimated pulmonary arterial pressure is 32 mmHg. Date of Insertion: Jun 24, 2017 Date of Removal: Jul 09, 2017 Line: Central Venous Catheter Side: Right Location: Subclavian A/P Problem List: (1) Atrial fibrillation with RVR ICD Code: I48.91 - Unspecified atrial fibrillation Status: Acute (2) GERD (gastroesophageal reflux disease) ICD Code: K21.9 - Gastro-esophageal reflux disease without esophagitis (3) Anxiety ICD Code: F41.9 - Anxiety disorder, unspecified (4) Anemia ICD Code: D64.9 - Anemia, unspecified Status: Acute (5) Pulmonary edema ICD Code: J81.1 - Chronic pulmonary edema Assessment and Plan 57-year-old female with a medical history significant for atrial fibrillation, anxiety, GERD who presented to the hospital on 06/23/2017 with complaint of midepigastric discomfort and shortness of breath. Diltiazem drip was initially started and later switched to metoprolol 50mg Q8hrs. The patient became more somnolent on the floor and bradycardic with heart rates as low as 42. EKG revealed sinus bradycardia with a first-degree AV block. Patient was arousable and with good pain in 1-2 word responses but fell asleep immediately. On examination patient did have pain especially in her right upper quadrant. CBC revealed hemoglobin 8.4. Ammonia level 35. BNP of 341. Patient was intubated. Due to concern over seizure activity, neurology was consulted. Patient was started on anti-seizure meds. Patient required reintubation and eventually extubated on 07/08/2017. - Metabolic encephalopathy - Probable ICU delirium - Probable seizure disorder Currently on Keepra 500mg PO Q12hrs and Dilantin 200mg Q8hrs PO. EEG 06/25 revealed right frontal lobe sharp activity indicative of epileptiform. EEG 06/28- no epileptiform activity 06/27 MRI brain-no acute intracranial abnormality Patient was much more lucid last two days. However, significant delirium, hallucination today. Appreciate psychiatry input. Psychiatry increase Seroquel to 50 mg twice daily. No acute medical concerns at this point. Patient would benefit from [facility] admission. Will discuss with psychiatry tomorrow for possible admission to med psych. 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 Cardiothoracic surgery is following. If patient's mentation improves, cardiothoracic surgery will reevaluate for possible surgical intervention. Continue apixaban 5 mg twice daily. - Acute respiratory failure hypoxia - Right lower lobe pneumonia - Strep pneumo bacteremia. - Pleural effusion - Continue Albuterol neb. Patient is off antibiotics. - Nutrition - Dysphagia - Speech continues to evaluate patient - hopefully she will improve from dysphagia standpoint. - Patient was not able to tolerate NG tube. Per palliative care notes, family wants aggressive care. - PEG tube placement 07/17/2017, currently on Jevity 1.5. Full code. Apixaban. Problem Qualifiers (1) Anemia: Qualified Codes: D64.9 - Anemia, unspecified Jillian De Souza DO Jul 21, 2017 16:34
--- NOTE | 2017-07-21 23:54 | PD.CARD.PN ---
Subjective Subjective Remarks restrained, asleep Objective Medications Current Medications Medications (Trade) Dose Ordered Sig/Salud Route Start Time Stop Time Status Last Admin (Narcan Inj) 0.4 mg UNSCH PRN IV PUSH 06/23/17 20:30 (D50w (Vial) Inj) 50 ml UNSCH PRN IV PUSH 06/24/17 17:00 07/09/17 15:53 (Glucagon Inj) 1 mg UNSCH PRN OTHER 06/24/17 17:00 (NS Flush) 2 ml UNSCH PRN IV FLUSH 06/24/17 17:00 07/18/17 11:09 (NS Flush) 2 ml BID IV FLUSH 06/24/17 21:00 07/21/17 21:30 (Zofran Inj) 4 mg Q6H PRN IV PUSH 06/24/17 17:00 07/05/17 17:24 (Albuterol Neb) 2.5 mg Q2HR NEB PRN INH 06/24/17 17:00 07/07/17 20:49 Miscellaneous Information 1 Q361D XX 06/24/17 18:00 (Chlorhexidine 2% Cloth) Taper DAILY@04 TOP 06/25/17 04:00 06/21/18 03:59 07/20/17 21:42 (Chlorhexidine 2% Cloth) 3 pack UNSCH PRN TOP 06/24/17 17:00 (Keiry-Colace) 1 tab BID PO 06/24/17 21:00 07/21/17 21:30 (Senokot) 17.2 mg Q12H PRN PO 06/24/17 17:00 (Dulcolax Supp) 10 mg DAILY PRN RECTAL 06/24/17 17:00 (Lactulose Liq) 30 ml DAILY PRN PO 06/24/17 17:00 07/10/17 17:27 (Peridex 0.12% Liq) 15 ml BID@08,20 MT 06/24/17 20:00 07/15/17 20:00 (Brethine Inj) 1 mg UNSCH PRN SQ 06/24/17 19:30 (Lopressor Inj) 2.5 mg Q6H PRN IV PUSH 06/30/17 09:45 07/11/17 05:01 (Trandate Inj) 10 mg Q4H PRN IV PUSH 07/02/17 16:45 07/19/17 04:09 (Racepinephrine 2.25% Neb) 0.5 ml Q3HR NEB PRN NEB 07/08/17 12:30 07/09/17 10:43 (NovoLIN R SUPPLEMENTAL SCALE) 1 ACHS SQ 07/12/17 12:00 (Keppra) 500 mg Q12HR PO 07/12/17 21:00 07/21/17 21:29 (Protonix) 40 mg DAILY PO 07/13/17 09:00 07/19/17 08:17 (Prinivil) 2.5 mg DAILY PO 07/14/17 09:00 07/21/17 09:24 (Pill Splitter) 1 ea UNSCH PRN OTHER 07/13/17 14:00 Potassium Chloride 100 ml @ 50 mls/hr Q2H PRN IV 07/14/17 14:45 Potassium Chloride 100 ml @ 50 mls/hr Q2H PRN IV 07/14/17 14:45 07/16/17 23:30 (K-Lyte Cl Eff) 50 meq UNSCH PRN PO 07/14/17 14:45 Potassium Chloride 100 ml @ 25 mls/hr UNSCH PRN IV 07/14/17 14:45 Potassium Chloride 100 ml @ 50 mls/hr Q2H PRN IV 07/14/17 14:45 Magnesium Sulfate 4 gm/Sodium Chloride 100 ml @ 50 mls/hr UNSCH PRN IV 07/14/17 14:45 (Mag-Ox) 800 mg UNSCH PRN PO 07/14/17 14:45 Magnesium Sulfate 2 gm/Sodium Chloride 100 ml @ 50 mls/hr UNSCH PRN IV 07/14/17 14:45 (K-Phos) 2,000 mg Q4H PRN PO 07/14/17 14:45 Sodium Phosphate 30 mmol/Sodium Chloride 250 ml @ 42 mls/hr UNSCH PRN IV 07/14/17 14:45 (K-Phos) 2,000 mg UNSCH PRN PO/TUBE 07/14/17 14:45 Potassium Phosphate 30 mmol/ Sodium Chloride 260 ml @ 42 mls/hr UNSCH PRN IV 07/14/17 14:45 (Cardizem) 90 mg Q6HR PO 07/15/17 12:00 07/21/17 23:19 (Dilantin) 200 mg Q8HR PO 07/15/17 14:00 07/21/17 21:30 (Benadryl Inj) 25 mg Q6H PRN IV PUSH 07/16/17 18:00 07/21/17 21:29 (Lopressor) 25 mg Q8HR G-TUBE 07/18/17 14:00 07/21/17 21:30 (Tylenol 650 Mg/ 20 ml Liq) 500 mg Q6H PRN NG 07/18/17 15:00 (Eliquis) 5 mg BID PO 07/18/17 21:00 07/21/17 21:30 (Tylenol) 500 mg Q6H PRN PO 07/18/17 16:15 (Habitrol 14 Mg Patch.24 Hr) 1 patch DAILY T-DERMAL 07/18/17 16:15 Miscellaneous Information 1 DAILY T-DERMAL 07/19/17 09:00 (SEROquel) 50 mg BID PO 07/20/17 21:00 07/21/17 21:30 (Haldol Inj) 2 mg Q8H PRN IM 07/20/17 13:30 07/21/17 23:20 Vital Signs / I&O Vital Signs Date Time Temp Pulse Resp B/P (MAP) Pulse Ox O2 Delivery O2 Flow Rate FiO2 07/21/17 22:00 115 07/21/17 20:00 97.9 163 34 104/89 (94) 86 07/21/17 20:00 137 07/21/17 18:00 105 07/21/17 16:00 94 07/21/17 16:00 98.4 117 134/93 (107) 07/21/17 14:00 94 07/21/17 12:00 98.4 97 18 159/80 (106) 99 07/21/17 12:00 97 07/21/17 10:00 103 07/21/17 08:00 91 07/21/17 08:00 98.3 91 25 148/80 (102) 99 07/21/17 06:00 71 07/21/17 04:00 99.0 126 26 159/94 (115) 99 07/21/17 04:00 126 07/21/17 02:00 90 07/21/17 00:00 98.8 94 24 160/78 (105) 98 07/21/17 00:00 94 I/O 07/21/17 07/21/17 07/21/17 07/22/17 07/22/17 07/22/17 07:00 15:00 23:00 07:00 15:00 23:00 Intake Total 935 ml 0 ml Output Total 210 ml 220 ml Balance 725 ml -220 ml Intake Oral 0 ml Tube Feeding 535 ml Tube Irrigant 400 ml Drainage Total 210 ml 220 ml # Voids 1 3 # Bowel Movements 1 Physical Exam GENERAL: SKIN: Warm and dry. HEAD: Normocephalic. EYES: No scleral icterus. No injection or drainage. NECK: Supple, trachea midline. No JVD or lymphadenopathy. CARDIOVASCULAR: Regular rate and rhythm without murmurs, gallops, or rubs. RESPIRATORY: Breath sounds equal bilaterally. No accessory muscle use. GASTROINTESTINAL: Abdomen soft, non-tender, nondistended. MUSCULOSKELETAL: No cyanosis, or edema. BACK: Nontender without obvious deformity. No CVA tenderness. Assessment and Plan Problem List: (1) Mitral regurgitation ICD Codes: I34.0 - Nonrheumatic mitral (valve) insufficiency (2) Bradycardia ICD Codes: R00.1 - Bradycardia, unspecified (3) Atrial fibrillation with RVR ICD Codes: I48.91 - Unspecified atrial fibrillation Status: Acute Assessment and Plan 1.) Cardiomyopathy - on lopressor, lisinopril 2.) Afib - re consult Dr Arellano, due to tachy-joe syndrome, tolerating lopressor, cardizem and lovenox, d/w Dr Roa and nurse, Dr Arellano following 3.) Severe mr - f/u ct surgery to determine if patient is a surgical candidate for potential mvr and cath if/when she is hemodynamically stable, patient consents and resolution of cholecystitis. She is s/p percutaneous GB drain tube insertion 07/17/17. Gianni Jeffers MD Jul 21, 2017 23:54
[2017-07-22] VITALS (14 sets, daily range): BP systolic 119–157; BP diastolic 60–78; PULSE 76–96; RESP 17–24; TEMP 97.5–98.6; O2SAT 93–100
[2017-07-22] MEDS: CHLORHEXIDINE GLUCONATE 2 % 1 PACK (2 CLOTHS) TOP SCH (04:00)
[2017-07-22] MEDS: DILTIAZEM HCL 90 MG TAB PO SCH ×4 (06:26→23:30)
[2017-07-22] MEDS: PHENYTOIN SODIUM 100 MG CAP PO SCH ×3 (06:26→21:04)
[2017-07-22] MEDS: METOPROLOL TARTRATE 25 MG TAB G-TUBE SCH ×3 (06:26→21:05)
[2017-07-22] MEDS: CHLORHEXIDINE 0.12% (ORAL KIT) 15 ML CUP MT SCH ×2 (08:00→19:36)
[2017-07-22] MEDS: INSULIN NovoLIN REGULAR SUPPLEMENTAL SCALE SQ SCH ×4 (08:00→23:26)
[2017-07-22] MEDS: NICOTINE 14 MG/24 HR PATCH T-DERMAL SCH (08:48)
[2017-07-22] MEDS: APIXABAN 5 MG TABLET PO SCH ×2 (08:50→21:04)
[2017-07-22] MEDS: SODIUM CHLORIDE 0.9% FLUSH 10 ML FLUSH IV FLUSH SCH ×2 (08:50→21:04)
[2017-07-22] MEDS: levETIRAcetam 500 MG TAB PO SCH ×2 (08:50→21:03)
[2017-07-22] MEDS: QUEtiapine FUMARATE 25 MG TAB PO SCH ×2 (08:51→21:05)
[2017-07-22] MEDS: DOCUSATE SODIUM 50 MG/SENNA 8.6 MG TAB PO SCH ×2 (08:51→21:04)
[2017-07-22] MEDS: PANTOPRAZOLE SOD 40 MG DELAYED RELEASE TAB PO SCH (08:51)
[2017-07-22] MEDS: LISINOPRIL 5 MG TAB PO SCH (08:51)
[2017-07-22] MEDS: REMOVE OLD PATCH T-DERMAL SCH (08:54)
--- NOTE | 2017-07-22 14:48 | PD.CARD.PN ---
Subjective Subjective Remarks restrained, asleep Objective Medications Current Medications Medications (Trade) Dose Ordered Sig/Salud Route Start Time Stop Time Status Last Admin (Narcan Inj) 0.4 mg UNSCH PRN IV PUSH 06/23/17 20:30 (D50w (Vial) Inj) 50 ml UNSCH PRN IV PUSH 06/24/17 17:00 07/09/17 15:53 (Glucagon Inj) 1 mg UNSCH PRN OTHER 06/24/17 17:00 (NS Flush) 2 ml UNSCH PRN IV FLUSH 06/24/17 17:00 07/18/17 11:09 (NS Flush) 2 ml BID IV FLUSH 06/24/17 21:00 07/22/17 08:50 (Zofran Inj) 4 mg Q6H PRN IV PUSH 06/24/17 17:00 07/05/17 17:24 (Albuterol Neb) 2.5 mg Q2HR NEB PRN INH 06/24/17 17:00 07/07/17 20:49 Miscellaneous Information 1 Q361D XX 06/24/17 18:00 (Chlorhexidine 2% Cloth) Taper DAILY@04 TOP 06/25/17 04:00 06/21/18 03:59 07/20/17 21:42 (Chlorhexidine 2% Cloth) 3 pack UNSCH PRN TOP 06/24/17 17:00 (Keiry-Colace) 1 tab BID PO 06/24/17 21:00 07/22/17 08:51 (Senokot) 17.2 mg Q12H PRN PO 06/24/17 17:00 (Dulcolax Supp) 10 mg DAILY PRN RECTAL 06/24/17 17:00 (Lactulose Liq) 30 ml DAILY PRN PO 06/24/17 17:00 07/10/17 17:27 (Peridex 0.12% Liq) 15 ml BID@08,20 MT 06/24/17 20:00 07/15/17 20:00 (Brethine Inj) 1 mg UNSCH PRN SQ 06/24/17 19:30 (Lopressor Inj) 2.5 mg Q6H PRN IV PUSH 06/30/17 09:45 07/11/17 05:01 (Trandate Inj) 10 mg Q4H PRN IV PUSH 07/02/17 16:45 07/19/17 04:09 (Racepinephrine 2.25% Neb) 0.5 ml Q3HR NEB PRN NEB 07/08/17 12:30 07/09/17 10:43 (NovoLIN R SUPPLEMENTAL SCALE) 1 ACHS SQ 07/12/17 12:00 (Keppra) 500 mg Q12HR PO 07/12/17 21:00 07/22/17 08:50 (Protonix) 40 mg DAILY PO 07/13/17 09:00 07/22/17 08:51 (Prinivil) 2.5 mg DAILY PO 07/14/17 09:00 07/22/17 08:51 (Pill Splitter) 1 ea UNSCH PRN OTHER 07/13/17 14:00 Potassium Chloride 100 ml @ 50 mls/hr Q2H PRN IV 07/14/17 14:45 Potassium Chloride 100 ml @ 50 mls/hr Q2H PRN IV 07/14/17 14:45 07/16/17 23:30 (K-Lyte Cl Eff) 50 meq UNSCH PRN PO 07/14/17 14:45 Potassium Chloride 100 ml @ 25 mls/hr UNSCH PRN IV 07/14/17 14:45 Potassium Chloride 100 ml @ 50 mls/hr Q2H PRN IV 07/14/17 14:45 Magnesium Sulfate 4 gm/Sodium Chloride 100 ml @ 50 mls/hr UNSCH PRN IV 07/14/17 14:45 (Mag-Ox) 800 mg UNSCH PRN PO 07/14/17 14:45 Magnesium Sulfate 2 gm/Sodium Chloride 100 ml @ 50 mls/hr UNSCH PRN IV 07/14/17 14:45 (K-Phos) 2,000 mg Q4H PRN PO 07/14/17 14:45 Sodium Phosphate 30 mmol/Sodium Chloride 250 ml @ 42 mls/hr UNSCH PRN IV 07/14/17 14:45 (K-Phos) 2,000 mg UNSCH PRN PO/TUBE 07/14/17 14:45 Potassium Phosphate 30 mmol/ Sodium Chloride 260 ml @ 42 mls/hr UNSCH PRN IV 07/14/17 14:45 (Cardizem) 90 mg Q6HR PO 07/15/17 12:00 07/22/17 11:48 (Dilantin) 200 mg Q8HR PO 07/15/17 14:00 07/22/17 14:32 (Benadryl Inj) 25 mg Q6H PRN IV PUSH 07/16/17 18:00 07/21/17 21:29 (Lopressor) 25 mg Q8HR G-TUBE 07/18/17 14:00 07/22/17 14:32 (Tylenol 650 Mg/ 20 ml Liq) 500 mg Q6H PRN NG 07/18/17 15:00 (Eliquis) 5 mg BID PO 07/18/17 21:00 07/22/17 08:50 (Tylenol) 500 mg Q6H PRN PO 07/18/17 16:15 (Habitrol 14 Mg Patch.24 Hr) 1 patch DAILY T-DERMAL 07/18/17 16:15 Miscellaneous Information 1 DAILY T-DERMAL 07/19/17 09:00 (SEROquel) 50 mg BID PO 07/20/17 21:00 07/22/17 08:51 (Haldol Inj) 2 mg Q8H PRN IM 07/20/17 13:30 07/21/17 23:20 Vital Signs / I&O Vital Signs Date Time Temp Pulse Resp B/P (MAP) Pulse Ox O2 Delivery O2 Flow Rate FiO2 07/22/17 12:00 97.5 83 20 119/60 (79) 93 07/22/17 10:00 81 07/22/17 09:28 100 21 07/22/17 08:00 97.9 76 24 157/71 (99) 100 07/22/17 08:00 76 07/22/17 06:00 96 07/22/17 05:47 100 21 07/22/17 04:00 82 07/22/17 04:00 97.6 82 17 120/72 (88) 100 07/22/17 02:00 85 07/22/17 00:00 97.8 96 22 122/64 (83) 100 07/22/17 00:00 96 07/21/17 22:00 115 07/21/17 20:00 97.9 163 34 104/89 (94) 86 07/21/17 20:00 137 07/21/17 18:00 105 07/21/17 16:00 94 3/27/18 16:00 98.4 117 134/93 (107) I/O 07/21/17 07/21/17 07/21/17 07/22/17 07/22/17 07/22/17 07:00 15:00 23:00 07:00 15:00 23:00 Intake Total 935 ml 0 ml 1079 ml Output Total 210 ml 220 ml 210 ml Balance 725 ml -220 ml 869 ml Intake Oral 0 ml Tube Feeding 535 ml 499 ml Tube Irrigant 400 ml 180 ml Other 400 ml Drainage Total 210 ml 220 ml 210 ml # Voids 1 3 2 # Bowel Movements 1 0 Physical Exam GENERAL: SKIN: Warm and dry. HEAD: Normocephalic. EYES: No scleral icterus. No injection or drainage. NECK: Supple, trachea midline. No JVD or lymphadenopathy. CARDIOVASCULAR: Regular rate and rhythm without murmurs, gallops, or rubs. RESPIRATORY: Breath sounds equal bilaterally. No accessory muscle use. GASTROINTESTINAL: Abdomen soft, non-tender, nondistended. MUSCULOSKELETAL: No cyanosis, or edema. BACK: Nontender without obvious deformity. No CVA tenderness. Assessment and Plan Problem List: (1) Mitral regurgitation ICD Codes: I34.0 - Nonrheumatic mitral (valve) insufficiency (2) Bradycardia ICD Codes: R00.1 - Bradycardia, unspecified (3) Atrial fibrillation with RVR ICD Codes: I48.91 - Unspecified atrial fibrillation Status: Acute Assessment and Plan 1.) Cardiomyopathy - on lopressor, lisinopril 2.) Afib - re consult Dr Arellano, due to tachy-joe syndrome, tolerating lopressor, cardizem and lovenox, d/w Dr Roa and nurse, Dr Arellano following 3.) Severe mr - f/u ct surgery to determine if patient is a surgical candidate for potential mvr and cath if/when she is hemodynamically stable, patient consents and resolution of cholecystitis. She is s/p percutaneous GB drain tube insertion 07/17/17. Gianni Jeffers MD Jul 22, 2017 14:48
[2017-07-22] MEDS: ACETAMINOPHEN 650 MG/20.3 ML UDC NG PRN (18:39)
--- NOTE | 2017-07-22 18:49 | HHI.PR ---
Subjective Remarks ollow up for Tachy-Urbano syndrome, Afib, s/p perc cholecystostomy tube placement , intermittent delirium. Patient is doing somewhat better today. More calm. No fever, chills. Objective Vitals Vital Signs Date Time Temp Pulse Resp B/P (MAP) Pulse Ox O2 Delivery O2 Flow Rate FiO2 07/22/17 18:00 77 07/22/17 16:00 97.9 80 21 131/78 (95) 98 07/22/17 16:00 80 07/22/17 14:00 86 07/22/17 12:00 97.5 83 20 119/60 (79) 93 07/22/17 12:00 83 07/22/17 10:00 81 07/22/17 09:28 100 21 07/22/17 08:00 97.9 76 24 157/71 (99) 100 07/22/17 08:00 76 07/22/17 06:00 96 07/22/17 05:47 100 21 07/22/17 04:00 82 07/22/17 04:00 97.6 82 17 120/72 (88) 100 07/22/17 02:00 85 07/22/17 00:00 97.8 96 22 122/64 (83) 100 07/22/17 00:00 96 07/21/17 22:00 115 07/21/17 20:00 97.9 163 34 104/89 (94) 86 07/21/17 20:00 137 I/O 07/21/17 07/21/17 07/21/17 07/22/17 07/22/17 07/22/17 07:00 15:00 23:00 07:00 15:00 23:00 Intake Total 935 ml 0 ml 1079 ml 893 ml Output Total 210 ml 220 ml 210 ml 810 ml Balance 725 ml -220 ml 869 ml 83 ml Intake Oral 0 ml Tube Feeding 535 ml 499 ml 493 ml Tube Irrigant 400 ml 180 ml 400 ml Other 400 ml Output Urine Total 600 ml Drainage Total 210 ml 220 ml 210 ml 210 ml # Voids 1 3 2 # Bowel Movements 1 0 Imaging Last Impressions Gastrostomy Tube Placement 07/17/17 0000 Signed Impressions: Service Date/Time: Monday, July 17, 2017 13:56 - CONCLUSION: Uncomplicated gastrostomy tube placement as above. Akira Cullen MD Modified Barium Swallow 07/15/17 0000 Signed Impressions: Service Date/Time: Saturday, July 15, 2017 11:14 - CONCLUSION: Please see speech pathology for full report. Ivan Contreras MD FACR Chest X-Ray 07/13/17 0600 Signed Impressions: Service Date/Time: Thursday, July 13, 2017 05:28 - CONCLUSION: Stable lingular scarring or atelectasis. The remainder of the lungs are clear. Floyd Magallanes MD Abdomen X-Ray 07/12/17 0000 Signed Impressions: Service Date/Time: Wednesday, July 12, 2017 12:26 - CONCLUSION: 1. Cholecystostomy tube. 2. There is only minimal stool evident within the cecum and adjacent colon. No definite findings to indicate constipation identified. King Contreras MD Chest CT 07/07/17 0000 Signed Impressions: Service Date/Time: Friday, July 07, 2017 10:35 - CONCLUSION: 1. Interval resolution of bilateral pleural effusions with improved airspace disease in the lower lobes in comparison to 06/24/2017. 2. Very subtle anterior pericardial effusion. Akira Cullen MD Abdomen/Pelvis CT 07/07/17 0000 Signed Impressions: Service Date/Time: Friday, July 07, 2017 10:35 - CONCLUSION: 1. No loculated fluid collections within the abdomen and pelvis to suggest abscess. Drainage catheter remains in right upper quadrant. 2. Improved basilar airspace consolidation in the lungs since June 24. 3. NG coiled in stomach. Ferguson catheter in decompressed bladder. No bowel obstruction, free fluid or free air. Leandro Palacios MD Brain MRI 06/27/17 0000 Signed Impressions: Service Date/Time: Tuesday, June 27, 2017 10:00 - CONCLUSION: 1. No acute intracranial abnormality. 2. Mild chronic small vessel ischemic change. Floyd Tiwari Jr., MD Head CT 06/24/17 1645 Signed Impressions: Service Date/Time: Saturday, June 24, 2017 18:00 - CONCLUSION: No acute disease. Brian Burnett MD Percutaneous Cholangiogram 06/24/17 0000 Signed Impressions: Service Date/Time: Saturday, June 24, 2017 20:36 - CONCLUSION: Uncomplicated percutaneous cholecystostomy as above. Lalo Wong MD Objective Remarks GENERAL: Alert, NAD. SKIN: Warm and dry. HEAD: Normocephalic. EYES: No scleral icterus. No injection or drainage. NECK: Supple, trachea midline. No JVD or lymphadenopathy. CARDIOVASCULAR: Regular rate and rhythm without murmurs, gallops, or rubs. RESPIRATORY: Breath sounds equal bilaterally. No accessory muscle use. GASTROINTESTINAL: Abdomen soft, non-tender, nondistended. Cholecystostomy tube in place. MUSCULOSKELETAL: No cyanosis, or edema. BACK: Nontender without obvious deformity. No CVA tenderness. Procedures Colonoscopy 06/30/2017 1. The colon mucosa was otherwise normal 2. Retroflexed views revealed no abnormalities EGD 06/30/2017 1. The esophagus was otherwise normal 2. Multiple small erosions were found in the gastric antrum; multiple biopsies was performed 3. Medium sized ulcer was found in the 1st part of the duodenum 4. Normal duodenal mucosa in the 2nd part of the duodenum 5. Retroflexion was performed and was normal 06/24/2017 Percutaneous Cholecystostomy tube placement. 06/25/2017 Echo Normal left ventricular size. Wall thickness is normal. The left ventricular systolic function is mildly reduced with an estimated ejection fraction in the range of 45- 50% The left atrial size is [id number] dilated. The right atrial size is [id number] dilated. Moderate to severe mitral valve regurgitation. There is moderate to severe tricuspid regurgitation. The estimated pulmonary arterial pressure is 32 mmHg. Date of Insertion: Jun 24, 2017 Date of Removal: Jul 09, 2017 Line: Central Venous Catheter Side: Right Location: Subclavian A/P Problem List: (1) Atrial fibrillation with RVR ICD Code: I48.91 - Unspecified atrial fibrillation Status: Acute (2) GERD (gastroesophageal reflux disease) ICD Code: K21.9 - Gastro-esophageal reflux disease without esophagitis (3) Anxiety ICD Code: F41.9 - Anxiety disorder, unspecified (4) Anemia ICD Code: D64.9 - Anemia, unspecified Status: Acute (5) Pulmonary edema ICD Code: J81.1 - Chronic pulmonary edema Assessment and Plan 57-year-old female with a medical history significant for atrial fibrillation, anxiety, GERD who presented to the hospital on 06/23/2017 with complaint of midepigastric discomfort and shortness of breath. Diltiazem drip was initially started and later switched to metoprolol 50mg Q8hrs. The patient became more somnolent on the floor and bradycardic with heart rates as low as 42. EKG revealed sinus bradycardia with a first-degree AV block. Patient was arousable and with good pain in 1-2 word responses but fell asleep immediately. On examination patient did have pain especially in her right upper quadrant. CBC revealed hemoglobin 8.4. Ammonia level 35. BNP of 341. Patient was intubated. Due to concern over seizure activity, neurology was consulted. Patient was started on anti-seizure meds. Patient required reintubation and eventually extubated on 07/08/2017. - Metabolic encephalopathy - Probable ICU delirium - Probable seizure disorder Currently on Keepra 500mg PO Q12hrs and Dilantin 200mg Q8hrs PO. EEG 06/25 revealed right frontal lobe sharp activity indicative of epileptiform. EEG 06/28- no epileptiform activity 06/27 MRI brain-no acute intracranial abnormality Patient was much more lucid last two days. However, significant delirium, hallucination today. Appreciate psychiatry input. Psychiatry increase Seroquel to 50 mg twice daily. No acute medical concerns at this point. Patient would benefit from [facility] admission. Will discuss with psychiatry on for possible admission to [facility]. 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 Cardiothoracic surgery is following. If patient's mentation improves, cardiothoracic surgery will reevaluate for possible surgical intervention. Continue apixaban 5 mg twice daily. - Acute respiratory failure hypoxia - Right lower lobe pneumonia - Strep pneumo bacteremia. - Pleural effusion - Continue Albuterol neb. Patient is off antibiotics. - Nutrition - Dysphagia - Speech continues to evaluate patient - hopefully she will improve from dysphagia standpoint. - Patient was not able to tolerate NG tube. Per palliative care notes, family wants aggressive care. - PEG tube placement 07/17/2017, currently on Jevity 1.5. - Patient feels hungry, will ask soccer commentator to see patient to recommend appropriate amount of tube feed. Full code. Apixaban. Problem Qualifiers (1) Anemia: Qualified Codes: D64.9 - Anemia, unspecified Ahmed,Shahabuddin DO Jul 22, 2017 18:49
[2017-07-23] VITALS (11 sets, daily range): BP systolic 121–141; BP diastolic 65–74; PULSE 74–84; RESP 16–32; TEMP 97.1–99.4; O2SAT 85–100
[2017-07-23] MEDS: CHLORHEXIDINE GLUCONATE 2 % 1 PACK (2 CLOTHS) TOP SCH (03:06)
[2017-07-23] MEDS: INSULIN NovoLIN REGULAR SUPPLEMENTAL SCALE SQ SCH ×2 (05:06→12:00)
[2017-07-23] MEDS: METOPROLOL TARTRATE 25 MG TAB G-TUBE SCH ×2 (05:07→14:07)
[2017-07-23] MEDS: ACETAMINOPHEN 650 MG/20.3 ML UDC NG PRN (05:07)
[2017-07-23] MEDS: DILTIAZEM HCL 90 MG TAB PO SCH ×2 (05:07→12:09)
[2017-07-23] MEDS: PHENYTOIN SODIUM 100 MG CAP PO SCH ×2 (05:08→14:07)
[2017-07-23] MEDS: DOCUSATE SODIUM 50 MG/SENNA 8.6 MG TAB PO SCH (08:09)
[2017-07-23] MEDS: PANTOPRAZOLE SOD 40 MG DELAYED RELEASE TAB PO SCH (08:09)
[2017-07-23] MEDS: APIXABAN 5 MG TABLET PO SCH (08:10)
[2017-07-23] MEDS: LISINOPRIL 5 MG TAB PO SCH (08:10)
[2017-07-23] MEDS: CHLORHEXIDINE 0.12% (ORAL KIT) 15 ML CUP MT SCH (08:10)
[2017-07-23] MEDS: QUEtiapine FUMARATE 25 MG TAB PO SCH (08:10)
[2017-07-23] MEDS: REMOVE OLD PATCH T-DERMAL SCH (08:10)
[2017-07-23] MEDS: levETIRAcetam 500 MG TAB PO SCH (08:10)
[2017-07-23] MEDS: NICOTINE 14 MG/24 HR PATCH T-DERMAL SCH (08:11)
[2017-07-23] MEDS: SODIUM CHLORIDE 0.9% FLUSH 10 ML FLUSH IV FLUSH SCH (08:12)
[2017-07-23] MEDS ORDERED: LISI-519 PO (13:53)
[2017-07-23] MEDS ORDERED: METO25TA3 G-TUBE (13:53)
[2017-07-23] MEDS ORDERED: APIX5TAB PO (13:53)
[2017-07-23] MEDS ORDERED: LEVE500 PO (13:53)
[2017-07-23] MEDS ORDERED: DILA100C PO (13:53)
[2017-07-23] MEDS ORDERED: PANT40TA3 PO (13:53)
[2017-07-23] MEDS ORDERED: SERO25TA PO (13:53)
[2017-07-23] MEDS ORDERED: DILT360C12 PO (13:54)
--- NOTE | 2017-07-23 14:21 | HHI.PYPN ---
Subjective Remarks The patient was seen today for psychiatric evaluation. She is restrained in 2 points. She is calm, superficially cooperative. She reports feeling much better today, denies distress, denies pain. She says that she is in the hospital because "a device has been introduced in my abdomen". The patient is fully oriented 3. She was able to talk about her son a year ago. He says that she was very depressed after that, she has been coping oK with it. She reports good sleep, good appetite, OK level of energy. She reports visual hallucinations of people coming inside her room, he seems to be insighless about this perceptual disturbances. As per nurse in charge, she has been presenting episodic agitation and disorganized behavior. Review of Systems Except as stated in HPI: all other systems reviewed are Neg Mental Status Examination Appearance: Appropriate Consciousness: Alert Orientation: Person, Place Motor Activity: Normal gait Speech: Unremarkable Language: Adequate Fund of Knowledge: Adequate Attention and Concentration: Inadequate Memory: Unremarkable Mood: Irritable Affect: Irritable Thought Process & Associations: Intact Thought Content: Bizarre thinking, Delusional, Obsessions Hallucination Type: Visual Delusion Type: Paranoid Suicidal Ideation: No Suicidal Plan: No Suicidal Intention: No Homicidal Ideation: No Homicidal Plan: No Homicidal Intention: No Insight: Poor Judgment: Poor Results Labs Date/Time Source Procedure Growth Status 07/09/17 17:42 Blood Peripheral Aerobic Blood Culture - Final Staph. Cohnii-Urealyticum Complete 07/09/17 17:42 Blood Peripheral Anaerobic Blood Culture - Final NO GROWTH IN 5 DAYS Complete 06/25/17 08:00 Fluid Bile Fluid Gram Stain - Final Complete 06/25/17 08:00 Fluid Bile Fluid Body Fluid Culture - Final NO GROWTH IN 72 HRS.--AEROBICALLY OR ... Complete 07/06/17 21:22 Sputum Endotracheal Gram Stain - Final Complete 07/06/17 21:22 Sputum Endotracheal Sputum Culture - Final LIGHT GROWTH NORMAL RESPIRATORY DELIO Complete 07/12/17 16:10 Urine Random Urine Urine Culture - Final NO GROWTH IN 48 HOURS. Complete Vitals/IOs Vital Signs Date Time Temp Pulse Resp B/P (MAP) Pulse Ox O2 Delivery O2 Flow Rate FiO2 07/23/17 12:00 84 07/23/17 12:00 98.2 126/66 (86) 07/23/17 11:41 97 21 07/23/17 08:00 32 Intake and Output 07/23/17 07/23/17 07/24/17 08:00 16:00 00:00 Intake Total 944 ml Output Total 200 ml Balance 744 ml Assessment & Plan Problem List: (1) Unspecified psychosis ICD Codes: F29 - Unspecified psychosis not due to a substance or known physiological condition Assessment & Plan: She continues to be psychotic despite medical clearance. She is oriented 3, no attention deficit, no fluctuation of consciousness. Unclear if current perceptual disturbance is secondary to medical or primary, but at this point and cannot go ahead the Ramachandran act the patient and recommended admission in psychiatry for stabilization and safety. Continue current psychotropic regimen. Assessment & Plan Estimated LOS: days Justification for Cont. Inpt. Psychiatric admission in [facility]. Gen Hassan MD Jul 23, 2017 14:21
--- NOTE | 2017-07-23 15:24 | HHI.DS ---
Discharge Summary Admission Date Jun 23, 2017 at 8:30 pm Discharge Date: Jul 23, 2017 Admitting Diagnosis Afib with RVR, Anemia (1) Atrial fibrillation with RVR ICD Code: I48.91 - Unspecified atrial fibrillation Diagnosis: Principal Status: Acute (2) GERD (gastroesophageal reflux disease) ICD Code: K21.9 - Gastro-esophageal reflux disease without esophagitis (3) Anxiety ICD Code: F41.9 - Anxiety disorder, unspecified (4) Anemia ICD Code: D64.9 - Anemia, unspecified Status: Acute (5) Pulmonary edema ICD Code: J81.1 - Chronic pulmonary edema Procedures Colonoscopy 06/30/2017 1. The colon mucosa was otherwise normal 2. Retroflexed views revealed no abnormalities EGD 06/30/2017 1. The esophagus was otherwise normal 2. Multiple small erosions were found in the gastric antrum; multiple biopsies was performed 3. Medium sized ulcer was found in the 1st part of the duodenum 4. Normal duodenal mucosa in the 2nd part of the duodenum 5. Retroflexion was performed and was normal 06/24/2017 Percutaneous Cholecystostomy tube placement. 06/25/2017 Echo Normal left ventricular size. Wall thickness is normal. The left ventricular systolic function is mildly reduced with an estimated ejection fraction in the range of 45- 50% The left atrial size is ctacdnie-vs-flavoyog dilated. The right atrial size is gyemoyqr-xw-liufskic dilated. Moderate to severe mitral valve regurgitation. There is moderate to severe tricuspid regurgitation. The estimated pulmonary arterial pressure is 32 mmHg. Brief History - From Admission 57-year-old female with a medical history significant for atrial fibrillation, anxiety, GERD who presents to the hospital with complaint of midepigastric discomfort and shortness of breath. Patient reports her symptoms started all couple of days ago. Apparently she is in the process of moving to [place]. She currently lives in [place] and is here temporarily. She has not been taking any of her medications for this past week. She states she normally takes metoprolol for atrial fibrillation and discontinued Xarelto about 3 weeks ago secondary to adverse skin reaction. Patient reported a sensation of burning midepigastric pain. She states she has a history of GERD and has had endoscopy and colonoscopy done without significant findings. She states she has had blood transfusion in the past for anemia. Workup in the emergency room revealed the patient to be in A. fib with RVR. She denies shortness of breath currently. Currently she reports feeling mildly anxious. Imaging Last Impressions Gastrostomy Tube Placement 07/17/17 0000 Signed Impressions: Service Date/Time: Monday, July 17, 2017 13:56 - CONCLUSION: Uncomplicated gastrostomy tube placement as above. Akira Cullen MD Modified Barium Swallow 07/15/17 0000 Signed Impressions: Service Date/Time: Saturday, July 15, 2017 11:14 - CONCLUSION: Please see speech pathology for full report. Ivan Contreras MD FACR Chest X-Ray 07/13/17 0600 Signed Impressions: Service Date/Time: Thursday, July 13, 2017 05:28 - CONCLUSION: Stable lingular scarring or atelectasis. The remainder of the lungs are clear. Floyd Magallanes MD Abdomen X-Ray 07/12/17 0000 Signed Impressions: Service Date/Time: Wednesday, July 12, 2017 12:26 - CONCLUSION: 1. Cholecystostomy tube. 2. There is only minimal stool evident within the cecum and adjacent colon. No definite findings to indicate constipation identified. King Contreras MD Chest CT 07/07/17 0000 Signed Impressions: Service Date/Time: Friday, July 07, 2017 10:35 - CONCLUSION: 1. Interval resolution of bilateral pleural effusions with improved airspace disease in the lower lobes in comparison to 06/24/2017. 2. Very subtle anterior pericardial effusion. Akira Cullen MD Abdomen/Pelvis CT 07/07/17 0000 Signed Impressions: Service Date/Time: Friday, July 07, 2017 10:35 - CONCLUSION: 1. No loculated fluid collections within the abdomen and pelvis to suggest abscess. Drainage catheter remains in right upper quadrant. 2. Improved basilar airspace consolidation in the lungs since June 24. 3. NG coiled in stomach. Ferguson catheter in decompressed bladder. No bowel obstruction, free fluid or free air. Leandro Palacios MD Brain MRI 06/27/17 0000 Signed Impressions: Service Date/Time: Tuesday, June 27, 2017 10:00 - CONCLUSION: 1. No acute intracranial abnormality. 2. Mild chronic small vessel ischemic change. Floyd Tiwari Jr., MD Head CT 06/24/17 1645 Signed Impressions: Service Date/Time: Saturday, June 24, 2017 18:00 - CONCLUSION: No acute disease. Brian Burnett MD Percutaneous Cholangiogram 06/24/17 0000 Signed Impressions: Service Date/Time: Saturday, June 24, 2017 20:36 - CONCLUSION: Uncomplicated percutaneous cholecystostomy as above. Lalo Wong MD PE at Discharge GENERAL: Alert, NAD. SKIN: Warm and dry. HEAD: Normocephalic. EYES: No scleral icterus. No injection or drainage. NECK: Supple, trachea midline. No JVD or lymphadenopathy. CARDIOVASCULAR: Regular rate and rhythm without murmurs, gallops, or rubs. RESPIRATORY: Breath sounds equal bilaterally. No accessory muscle use. GASTROINTESTINAL: Abdomen soft, non-tender, nondistended. Cholecystostomy tube in place. MUSCULOSKELETAL: No cyanosis, or edema. BACK: Nontender without obvious deformity. No CVA tenderness. Pt update on day of discharge Patient is doing well. Somewhat more calm and alert today. Denies any acute concerns. No fever, chills. Tolerating diet well. Discussed with Psychiatrist who recommends med-psych admission. Patient is cleared from medical standpoint to go to Med-psych floor. Hospital Course 57-year-old female with a medical history significant for atrial fibrillation, anxiety, GERD who presented to the hospital on 06/23/2017 with complaint of midepigastric discomfort and shortness of breath. Diltiazem drip was initially started and later switched to metoprolol 50mg Q8hrs. The patient became more somnolent on the floor and bradycardic with heart rates as low as 42. EKG revealed sinus bradycardia with a first-degree AV block. Patient was arousable and with good pain in 1-2 word responses but fell asleep immediately. On examination patient did have pain especially in her right upper quadrant. CBC revealed hemoglobin 8.4. Ammonia level 35. BNP of 341. Patient was intubated. Due to concern over seizure activity, neurology was consulted. Patient was started on anti-seizure meds. Patient required reintubation and eventually extubated on 07/08/2017. - Metabolic encephalopathy - Probable ICU delirium - Probable seizure disorder Currently on Keepra 500mg PO Q12hrs and Dilantin 200mg Q8hrs PO. EEG 06/25 revealed right frontal lobe sharp activity indicative of epileptiform. EEG 06/28- no epileptiform activity 06/27 MRI brain-no acute intracranial abnormality Patient was much more lucid last two days. Continues to have intermittent hallucinations. Appreciate psychiatry input. Psychiatry increase Seroquel to 50 mg twice daily. No acute medical concerns at this point. Patient would benefit from MedPsych admission. Discussed with Psychiatrist who recommended med-psych admission Patient is cleared from medical standpoint to go to med psych unit. 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 Cardiothoracic surgery was following. If patient's mentation improves, cardiothoracic surgery will reevaluate for possible surgical intervention. The patient's mentation improves consistently, cardiothoracic surgery can be notified for another evaluation. Continue apixaban 5 mg twice daily. - Acute respiratory failure hypoxia - Right lower lobe pneumonia - Strep pneumo bacteremia. - Pleural effusion - Continue Albuterol neb. Patient is off antibiotics per infectious disease recommendations. - Nutrition - Dysphagia - Speech continues to evaluate patient - hopefully she will improve from dysphagia standpoint. - Patient was not able to tolerate NG tube. Per palliative care notes, family wants aggressive care. - PEG tube placement 07/17/2017, currently on Jevity 1.5. -While patient is an MedPsych, if possible please consult dietitian to get a recommendation on tube feeding. Full code. Apixaban. Overall, patient is currently hemodynamically stable. Medically cleared to go to med psych unit. Hospitalist service can be consulted for continued management. Cardiothoracic surgery can be consulted if patient's mentation improves consistently. Please consult dietitian to get recommendations on tube feeding. Pt Condition on Discharge: Fair Discharge Disposition: Disc to Psych Care Fac Discharge Time: > 30 minutes Discharge Instructions DIET: Follow Instructions for: On Tube Feeding Additional Diet Instructions: Patient will need speech therapy consult. Activities you can perform: Regular-No Restrictions New Medications: Diltiazem CD 24 HR (Diltiazem CD 24 HR) 360 Mg Capcr 360 MG PO DAILY for Afib, #30 CAP 0 Refills Apixaban (Eliquis) 5 Mg Tab 5 MG PO BID for Blood Clot Prevention, #60 TAB Levetiracetam (Keppra) 500 Mg Tab 500 MG PO Q12HR for Seizure Control, #60 TAB Lisinopril (Lisinopril) 5 Mg Tab 2.5 MG PO DAILY for Blood Pressure Management, #30 TAB Metoprolol Tartrate (Metoprolol Tartrate) 25 Mg Tab 25 MG G-TUBE Q8HR for Heart, #90 TAB Hold if systolic BP < 110 or HR < 75 Pantoprazole (Pantoprazole) 40 Mg Tab 40 MG PO DAILY for Reflux, #30 TAB Phenytoin Extended (Dilantin) 100 Mg Cap 200 MG PO Q8HR for Seizure Control, #90 CAP Quetiapine (Seroquel) 25 Mg Tab 50 MG PO BID for Agitation, #60 TAB Discontinued Medications: Omeprazole (Omeprazole) Unknown Strength Tab Unknown Dose PO DAILY, #30 TAB 0 Refills Paroxetine (Paroxetine) Unknown Strength Tab Unknown Dose PO DAILY, #30 TAB 0 Refills Jillian De Souza DO Jul 23, 2017 3:24 pm
== END 2017-07-23 17:05 | DRG 308 ==
LOC: NEPC 15:51 → NEDA 20:30 → HCPC 06-24 01:10 → HCVI 06-24 15:00 → HIMN 06-29 13:40 → HIME 07-16 19:10
PROVIDERS: ADMIT Hospitalist; ATTEND Hospitalist
PROC: 5A1955Z Respiratory Ventilation, Greater than 96 Consecutive Hours (ICD-10-PCS; principal; 2017-06-24)
PROC: 03HY32Z Insertion of Monitoring Device into Upper Artery, Percutaneous Approach (ICD-10-PCS; 2017-06-24)
PROC: 0BH18EZ Insertion of Endotracheal Airway into Trachea, Via Natural or Artificial Opening Endoscopic (ICD-10-PCS; 2017-06-24)
PROC: 02HV33Z Insertion of Infusion Device into Superior Vena Cava, Percutaneous Approach (ICD-10-PCS; 2017-06-24)
PROC: 0F9430Z Drainage of Gallbladder with Drainage Device, Percutaneous Approach (ICD-10-PCS; 2017-06-24)
PROC: 30233N1 Transfusion of Nonautologous Red Blood Cells into Peripheral Vein, Percutaneous Approach (ICD-10-PCS; 2017-06-24)
PROC: 30233K1 Transfusion of Nonautologous Frozen Plasma into Peripheral Vein, Percutaneous Approach (ICD-10-PCS; 2017-06-25)
PROC: 0DB68ZX Excision of Stomach, Via Natural or Artificial Opening Endoscopic, Diagnostic (ICD-10-PCS; 2017-06-30)
PROC: 0DJD8ZZ Inspection of Lower Intestinal Tract, Via Natural or Artificial Opening Endoscopic (ICD-10-PCS; 2017-06-30)
PROC: 0BH18EZ Insertion of Endotracheal Airway into Trachea, Via Natural or Artificial Opening Endoscopic (ICD-10-PCS; 2017-07-06)
PROC: 5A1945Z Respiratory Ventilation, 24-96 Consecutive Hours (ICD-10-PCS; 2017-07-06)
PROC: 0DH63UZ Insertion of Feeding Device into Stomach, Percutaneous Approach (ICD-10-PCS; 2017-07-17)
DX: I48.2 Chronic atrial fibrillation (principal); G93.41 Metabolic encephalopathy; R65.21 Severe sepsis with septic shock; J96.01 Acute respiratory failure with hypoxia; J96.02 Acute respiratory failure with hypercapnia; J18.9 Pneumonia, unspecified organism; A41.9 Sepsis, unspecified organism; I50.31 Acute diastolic (congestive) heart failure; N17.9 Acute kidney failure, unspecified; K80.00 Calculus of gallbladder with acute cholecystitis without obstruction; E87.2 Acidosis; F05 Delirium due to known physiological condition; E87.0 Hyperosmolality and hypernatremia; B37.0 Candidal stomatitis; F41.9 Anxiety disorder, unspecified; F17.210 Nicotine dependence, cigarettes, uncomplicated; E87.5 Hyperkalemia; I42.9 Cardiomyopathy, unspecified; K26.9 Duodenal ulcer, unspecified as acute or chronic, without hemorrhage or perforation; K25.9 Gastric ulcer, unspecified as acute or chronic, without hemorrhage or perforation; K21.9 Gastro-esophageal reflux disease without esophagitis; I08.1 Rheumatic disorders of both mitral and tricuspid valves; D64.9 Anemia, unspecified; R56.9 Unspecified convulsions; E83.52 Hypercalcemia; E87.6 Hypokalemia; E83.42 Hypomagnesemia; E88.09 Other disorders of plasma-protein metabolism, not elsewhere classified; B95.5 Unspecified streptococcus as the cause of diseases classified elsewhere; E16.2 Hypoglycemia, unspecified; I44.0 Atrioventricular block, first degree; I49.5 Sick sinus syndrome; L29.9 Pruritus, unspecified; F29 Unspecified psychosis not due to a substance or known physiological condition; R06.1 Stridor; Z88.1 Allergy status to other antibiotic agents; Z88.2 Allergy status to sulfonamides; Z88.5 Allergy status to narcotic agent
CPT/HCPCS: 31500; 36430; 36600; 36620; 47490; 49440; 70450; 70551; 71045; 71046; 71250; 74018; 74176; 74177; 74230; 76937; 80048; 80053; 80061; 80074; 80076; 80177; 80185; 80202; 80307; 81001; 82140; 82150; 82436; 82533; 82550; 82570; 82607; 82728; 82805; 82948; 83036; 83540; 83550; 83605; 83690; 83735; 83880; 84100; 84132; 84133; 84295; 84300; 84443; 84484; 85007; 85014; 85018; 85025; 85027; 85384; 85610; 85730; 86077; 86140; 86403; 86592; 86850; 86870; 86880; 86900; 86901; 86920; 86921; 86922; 86927; 86965; 87040; 87070; 87077; 87086; 87186; 87205; 87449; 87493; 87641; 87804; 88305; 88312; 93005; 93306; 94002; 94003; 94150; 94640; 94664; 95819; 96361; 96365; 96375; 99152; 99153; C1729; C1769; C1887; C1894; C9113; C9248; J0171; J0282; J0295; J0360; J0461; J0610; J0630; J0690; J0692; J1100; J1160; J1200; J1610; J1630; J1644; J1650; J1885; J1940; J1953; J2212; J2248; J2250; J2405; J2543; J2920; J2997; J3010; J3370; J3430; J3475; J3480; J7030; J7040; J7050; J7060; J7070; J7613; P9016; P9017; P9045; P9047; Q2009; Q9967

== ENCOUNTER 2017-07-23 16:16 | Inpatient (IN) | payer MEDICAID ==
[~2017-07-23] VITALS: Ht 157.5 cm; Wt 61.8 kg
[~2017-07-23 16:16] MED LIST: APIX5TAB PO; DILA100C PO; DILT360C12 PO; LEVE500 PO; LISI-519 PO; METO25TA3 G-TUBE; OMEP20TA93 PO; PANT40TA3 PO; PARO20TA2 PO; SERO25TA PO
[2017-07-23 18:26] VITALS: BP 141/65; PULSE 89; RESP 18; TEMP 98.7; O2SAT 97
--- NOTE | 2017-07-23 18:29 | PD.CARD.PN ---
Subjective Subjective Remarks alert in nad, slightly confused Objective Physical Exam GENERAL: SKIN: Warm and dry. HEAD: Normocephalic. EYES: No scleral icterus. No injection or drainage. NECK: Supple, trachea midline. No JVD or lymphadenopathy. CARDIOVASCULAR: Regular rate and rhythm without murmurs, gallops, or rubs. RESPIRATORY: Breath sounds equal bilaterally. No accessory muscle use. GASTROINTESTINAL: Abdomen soft, non-tender, nondistended. MUSCULOSKELETAL: No cyanosis, or edema. BACK: Nontender without obvious deformity. No CVA tenderness. Assessment and Plan Problem List: (1) Atrial fibrillation ICD Codes: I48.91 - Unspecified atrial fibrillation (2) Bradycardia ICD Codes: R00.1 - Bradycardia, unspecified (3) Mitral regurgitation ICD Codes: I34.0 - Nonrheumatic mitral (valve) insufficiency (4) Cardiomyopathy ICD Codes: I42.9 - Cardiomyopathy, unspecified (5) Tachy-joe syndrome ICD Codes: I49.5 - Sick sinus syndrome (6) Severe mitral regurgitation ICD Codes: I34.0 - Nonrheumatic mitral (valve) insufficiency Assessment and Plan 1.) Cardiomyopathy - euvolemic, continue coreg, start clayton inhibitor if/when renal function normalizes 2.) Afib - assymptomatic, rate controlled, continue eliquis 3.) MR - mod to severe, rec lhc/rhc if/when patient can consent and she is a surgical candidate Gianni Jeffers MD Jul 23, 2017 18:29
[2017-07-23] MEDS ORDERED: LORazepam 2 MG/ML VIAL IM PRN ×2 (20:30)
[2017-07-23] MEDS ORDERED: MAGNESIUM HYDROXIDE SUSP 30 ML CUP PO PRN (20:30)
[2017-07-23] MEDS ORDERED: LORazepam 0.5 MG TAB PO PRN (20:30)
[2017-07-23] MEDS ORDERED: PILL SPLITTER OTHER PRN (21:00)
[2017-07-23] MEDS: QUEtiapine FUMARATE 25 MG TAB PO SCH (21:00)
[2017-07-23] MEDS: levETIRAcetam 500 MG TAB PO SCH (21:51)
[2017-07-23] MEDS: APIXABAN 5 MG TABLET PO SCH (21:51)
[2017-07-23] MEDS: METOPROLOL TARTRATE 25 MG TAB G-TUBE SCH (21:52)
[2017-07-23] MEDS: ACETAMINOPHEN 325 MG TAB PO PRN (21:58)
[2017-07-24] MEDS: ACETAMINOPHEN 325 MG TAB PO PRN ×3 (02:34→17:51)
[2017-07-24 06:00] VITALS: BP 141/67; PULSE 99; RESP 16; TEMP 97.5; O2SAT 97
[2017-07-24] MEDS: METOPROLOL TARTRATE 25 MG TAB G-TUBE SCH ×3 (06:25→21:11)
[2017-07-24] MEDS: REMOVE OLD NICODERM (NICOTINE) PATCH T-DERMAL SCH (09:00)
--- NOTE | 2017-07-24 09:44 | HHI.HP ---
Provisional Diagnosis Admission Date Jul 23, 2017 at 17:15 [place] I. 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 Express and informed consent means consent voluntarily given in writing, by a competent person, after sufficient explanation and disclosure of the subject matter involved to enable the person to make a knowing and willful decision without any element of force, fraud, deceit, duress, or other form of constraint or coercion. This person is 18 years of age or older, is not now known to be incompetent to consent to treatment with a guardian advocate, and does not have a health care surrogate or proxy currently making medical treatment decisions. I have found this person to be one of the following: xxx] Competent to provide express and informed consent, as defined above, for voluntary admission to this facility and is competent to provide express and informed consent for treatment. He/she has the consistent capacity to make well reasoned, willful, and knowing decisions concerning his or her medical or mental health treatment. The person fully and consistently understands the purpose of the admission for examination/placement and is fully capable of personally exercising all rights assured under [place] Incompetent to provide express and informed consent to voluntary admission, and this is incompetent to provide express and informed consent to treatment. The person must be transferred to involuntary status and a petition for a guardian advocate filed with the Circuit Court. [] Refusing to provide express and informed consent to voluntary admission but is competent to provide express and informed consent for treatment. The person must be discharged or transferred to involuntary status. Form shall be completed within 24 hours of a person's arrival at the receiving facility and filed in the clinical record of each person: 1. Admitted on a voluntary basis 2. Permitted to provide express and informed consent to his/her own treatment 3. Allowed to transfer from involuntary to voluntary status 4. Prior to permitting a person to consent to his or her own treatment after having been previously found incompetent to consent to treatment. History of Present Illness Capacity: Has Capacity HPI Patient is 57-year-old white female was initially admitted to the medical service on 06/23/17 through 07/23/17 with visit [id number] she is admitted for rapid ventricular response atrial fibrillation and anemia. She does have a PEG tube appear she is now on palliative care with hospice services. Was seen in consultation by Dr. Gen Chahal for signs of psychosis. Prudencio Chahal. The patient psychotic features were significant for point relocated Poshly act patient was medically cleared support for her medical services could be continued on the [facility] psych for yeast unit. Patient seen by me today on the unit with nurse Halie. Patient is a thin frail debilitated appearing white female she does have a PEG tube, she does have a drain in her gallbladder area that is draining bile appearing fluid. Today she denies auditory or visual hallucinations she is oriented 3, when asked about her family she became tearful stating that her adult son was electrocuted accidentally the end of last year. She states she has not had counseling or any help with grieving for that. She is vague about any prior psychiatric history. Is vague about alcohol or drug use history. In any event well Dr. Chahal initially placed the Poshly act on this lady due to her psychotic features, if this time I feel patient psychosis is resolving and I feel patient does have capacity to sign voluntary thus I'll lift [place] allow patient to sign voluntary. We will add Lexapro 10 mg daily to the regimen, will also have chaplains consult will us with this lady with her permission, [place] the hospitalist follow with this lady and hospice follows with this lady. Also have PT and OT assess Review of Systems Psychiatric: COMPLAINS OF: Depression Except as stated in HPI: all other systems reviewed are Neg Past Psych History Psychological trauma history Patient's adult son killed by electrocution in the last year Violence risk - others (6 mos) Low Violence risk - self (6 mos) Low Substance Abuse History Drugs/Alcohol past 12 months Patient denies Past Family Social History Coded Allergies: Sulfa (Sulfonamide Antibiotics) (Verified Allergy, Unknown, 06/23/17) ciprofloxacin (Verified Allergy, Unknown, 06/23/17) hydromorphone (Verified Allergy, Unknown, 06/23/17) Active Scripts Diltiazem CD 24 HR (Diltiazem CD 24 HR) 360 Mg Capcr, 360 MG PO DAILY for Afib, #30 CAP 0 Refills Prov:Jillian De Souza DO 07/23/17 Pantoprazole (Pantoprazole) 40 Mg Tab, 40 MG PO DAILY for Reflux, #30 TAB Prov:Jillian De Souza DO 07/23/17 Quetiapine (Seroquel) 25 Mg Tab, 50 MG PO BID for Agitation, #60 TAB Prov:Jillian De Souza DO 07/23/17 Levetiracetam (Keppra) 500 Mg Tab, 500 MG PO Q12HR for Seizure Control, #60 TAB Prov:Jillian De Souza DO 07/23/17 Phenytoin Extended (Dilantin) 100 Mg Cap, 200 MG PO Q8HR for Seizure Control, # 90 CAP Prov:Jillian De Souza 07/23/17 Lisinopril (Lisinopril) 5 Mg Tab, 2.5 MG PO DAILY for Blood Pressure Management , #30 TAB Prov:Jillian De Souza 07/23/17 Metoprolol Tartrate (Metoprolol Tartrate) 25 Mg Tab, 25 MG G-TUBE Q8HR for Heart , #90 TAB Hold if systolic BP < 110 or HR < 75 Prov:Jillian De Souza 07/23/17 Apixaban (Eliquis) 5 Mg Tab, 5 MG PO BID for Blood Clot Prevention, #60 TAB Prov:Jillian De Souza 07/23/17 Discontinued Reported Medications Paroxetine (Paroxetine) Unknown Strength Tab, PO DAILY, #30 TAB 0 Refills 06/23/17 Omeprazole (Omeprazole) Unknown Strength Tab, PO DAILY, #30 TAB 0 Refills 06/23/17 Current Medications Medications (Trade) Dose Ordered Sig/Salud Route Start Time Stop Time Status Last Admin (Eliquis) 5 mg BID PO 07/23/17 21:00 07/23/17 21:51 (Cardizem Cd) 360 mg DAILY PO 07/24/17 09:00 (Keppra) 500 mg Q12HR PO 07/23/17 21:00 07/23/17 21:51 (Prinivil) 2.5 mg DAILY PO 07/24/17 09:00 (Lopressor) 25 mg Q8HR G-TUBE 07/23/17 22:00 07/24/17 06:25 (Protonix) 40 mg DAILY PO 07/24/17 09:00 (SEROquel) 50 mg BID PO 07/23/17 21:00 (Ativan) 1 mg Q6H PRN PO 07/23/17 20:30 (Ativan Inj) 1 mg Q6H PRN IM 07/23/17 20:30 (Ativan) 0.5 mg Q12H PRN PO 07/23/17 20:30 (Ativan Inj) 0.5 mg Q12H PRN IM 07/23/17 20:30 (Tylenol) 650 mg Q4H PRN PO 07/23/17 20:30 07/24/17 02:34 (Milk Of Magnesia Liq) 30 ml DAILY PRN PO 07/23/17 20:30 (Mag-Al Plus Susp Liq) 30 ml Q6H PRN PO 07/23/17 20:30 (Habitrol 21 Mg Patch.24 Hr) 1 patch DAILY T-DERMAL 07/24/17 09:00 (Pill Splitter) 1 ea UNSCH PRN OTHER 07/23/17 21:00 Miscellaneous Information 1 DAILY T-DERMAL 07/24/17 09:00 (Lexapro) 10 mg DAILY PO 07/24/17 10:00 Family Psych History Unknown at this time Social History Patient's son of electrocution accidentally ended last year Patient's Strengths (min. 2) Patient verbal has supportive family irritable access healthcare Physical Exam Please see MedSurg assessments patient seen in room she is in no acute distress though she complains of pain around the area of her abdominal drain and the PEG tube is ambulatory with a walker Vital Signs Vital Signs Date Time Temp Pulse Resp B/P (MAP) Pulse Ox O2 Delivery O2 Flow Rate FiO2 07/24/17 06:00 97.5 99 16 141/67 (91) 97 Mental Status Examination Appearance: Appropriate, Disheveled (mildly) Consciousness: Alert Orientation: Person, Place, Date/Time Motor Activity: Other (patient uses walker) Speech: Unremarkable Language: Adequate Fund of Knowledge: Adequate Attention and Concentration: Other (fair) Memory: Impaired Mood: Sad Affect: Other (slight decreased range increase intensity) Thought Process & Associations: Intact Thought Content: Appropriate Hallucination Type: Auditory (denies at this time) Delusion Type: None Suicidal Ideation: No Suicidal Plan: No Suicidal Intention: No Homicidal Ideation: No Homicidal Plan: No Homicidal Intention: No Insight: Fair Judgment: Adequate Assessment & Plan Problem List: (1) Major depressive disorder, single episode, severe, with psychosis ICD Codes: F32.3 - Major depressive disorder, single episode, severe with psychotic features Assessment & Plan Estimated LOS: days patient psychosis appears to be resolving the depression is significant. Will have appropriate consultations with hospitalist, hospice, chaplains, PT, OT. She medication adjustments also Discharge Planning To be determined by above consultations Request HC Surrog/Guard Advoc?: No Stanislaw Novoa MD Jul 24, 2017 09:44
[2017-07-24] MEDS: LISINOPRIL 5 MG TAB PO SCH (10:27)
[2017-07-24] MEDS: DILTIAZEM-CD 180 MG CAP ER PO SCH (10:27)
[2017-07-24] MEDS: PANTOPRAZOLE SOD 40 MG DELAYED RELEASE TAB PO SCH (10:27)
[2017-07-24] MEDS: APIXABAN 5 MG TABLET PO SCH ×2 (10:27→21:11)
[2017-07-24] MEDS: QUEtiapine FUMARATE 25 MG TAB PO SCH ×2 (10:27→21:12)
[2017-07-24] MEDS: NICOTINE 21 MG/24 HR PATCH T-DERMAL SCH (10:28)
[2017-07-24] MEDS: levETIRAcetam 500 MG TAB PO SCH ×2 (10:30→21:12)
[2017-07-24] MEDS: ESCITALOPRAM OXALATE 10 MG TAB PO SCH (10:30)
[2017-07-24 12:04] LABS: BICARBONATE 23.5 MEQ/L (21.0-32.0); BLOOD UREA NITROGEN 16 MG/DL (7-18); CALCIUM 10.3 MG/DL (8.5-10.1); CHLORIDE 103 MEQ/L (98-107); CREATININE 0.74 MG/DL (0.50-1.00); GLOMERULAR FILTRATION RATE 80 ML/MIN (>89); GLUCOSE,RANDOM 91 MG/DL (74-106); SODIUM (NA) 136 MEQ/L (136-145)
[2017-07-24 12:05] LABS: CHOLESTEROL 233 MG/DL (120-200)
[2017-07-24 12:10] LABS: CHOLESTEROL/ HDL RATIO 5.95 RATIO; HDL CHOLESTEROL 39.1 MG/DL (40.0-60.0); LDL CHOLESTEROL 117 MG/DL (0-99); TRIGLYCERIDES 383 MG/DL (42-150)
[2017-07-24] MEDS: hydrOXYzine HCL 50 MG TAB PO PRN (12:15)
--- NOTE | 2017-07-24 12:36 | PD.CONS ---
[facility] Primary Care Physician Non-Staff Diagnoses: History of Present Illness 57 years old female with past medical history of A. fib anxiety GERD who was recently hospitalized for metabolic encephalopathy A. fib moderate to severe TR MR, acute diastolic heart failure, dysphagia, malnutrition in the right lower lobe pneumonia strep pneumo bacteremia and pleural effusion, patient became stable and she was transferred to [facility] for further psychiatry follow-up, patient seen and examined today she was sitting in the room she has cholecystostomy drain are in place, and PEG tube, she complained of some discomfort especially on the side of the drainer, no nausea vomiting diarrhea no fever or chills she is awake alert oriented 3, discussed with the nurse PEG tube is working well, patient on Eliquis for A. fib as well as metoprolol and diltiazem, also patient is on Keppra for seizure prophylaxis Review of Systems All systems reviewed and was positive for what is mentioned in history of present illness otherwise negative Past Family Social History Allergies: Coded Allergies: Sulfa (Sulfonamide Antibiotics) (Verified Allergy, Unknown, 06/23/17) ciprofloxacin (Verified Allergy, Unknown, 06/23/17) hydromorphone (Verified Allergy, Unknown, 06/23/17) Past Medical History As in HPI Past Surgical History Cholecystostomy, PEG tube Family History Review with the patient,not aware of significant medical history related to her problem runs in the family Social History Smoking around one pack per day for 30 years, no alcohol or illicit drug abuse Physical Exam Vital Signs Vital Signs Date Time Temp Pulse Resp B/P (MAP) Pulse Ox O2 Delivery O2 Flow Rate FiO2 07/24/17 06:00 97.5 99 16 141/67 (91) 97 07/23/17 18:26 98.7 89 18 141/65 (90) 97 Physical Exam GENERAL: This is a well-nourished, well-developed patient, in no apparent distress. SKIN: Multiple skin lesion mostly on the upper extremity and the chest each is around 1-1-1/2 cm erythematous macular some of it with silver and scaly, slightly itchy none of it on the extensor surfaces like the knees over the elbows, patient denied history of psoriasis HEAD: Atraumatic. Normocephalic. EYES: Pupils equal round and reactive. Extraocular motions intact. No scleral icterus. ENT: Nose without bleeding, or drainage, Airway patent. NECK: Trachea midline. Supple CARDIOVASCULAR: Regular rate and rhythm without murmurs, gallops, or rubs. RESPIRATORY: Fair air entry bilaterally. No wheezes, rales, or rhonchi. GASTROINTESTINAL: Abdomen soft, non-tender, nondistended. Positive bowel sounds MUSCULOSKELETAL: Extremities without clubbing, cyanosis, or edema. Pedal pulses appreciated NEUROLOGICAL: Awake and alert. Moves all extremity. Normal speech.no focal neurological deficit Laboratory Laboratory Tests Test 07/24/17 11:10 Blood Urea Nitrogen 16 Creatinine 0.74 Random Glucose 91 Calcium Level 10.3 Sodium Level 136 Potassium Level 3.7 Chloride Level 103 Carbon Dioxide Level 23.5 Anion Gap 10 Estimat Glomerular Filtration Rate 80 Triglycerides Level 383 Cholesterol Level 233 LDL Cholesterol 117 HDL Cholesterol 39.1 Cholesterol/HDL Ratio 5.95 Result Diagram: 07/24/17 1110 Assessment and Plan Assessment and Plan 57 years old female admitted to the to the [facility] department for further follow-up on psychosis Psychosis going to be managed by psychiatry H/O recent H Pneumonia: Stable status post antibiotic H/O acute cholecystitis status to post cholecystostomy with tube placed: Stable History of dysphagia status post PEG tube: Continue on tube feed, paralegal supervisor following up, will do BMP today History of recent new onset seizure: Continue on Keppra H/O recent respiratory failure with metabolic encephalopathy: Improved, avoid narcotic A. fib: Continue Eliquis Cardizem and metoprolol DVT prophylaxis with ambulation and Eliquis We will follow patient with you thank you for this consultation Discussed Condition With Patient and nurse German Clay MD Jul 24, 2017 12:36
[2017-07-24 15:31] LABS: BICARBONATE 25.6 MEQ/L (21.0-32.0); CALCIUM 9.7 MG/DL (8.5-10.1); CREATININE 0.72 MG/DL (0.50-1.00); MAGNESIUM 1.9 MG/DL (1.5-2.5)
[2017-07-24 15:39] LABS: PHOSPHORUS 3.5 MG/DL (2.5-4.9)
[2017-07-24 18:18] VITALS: BP 148/89; PULSE 94; RESP 16; TEMP 98; O2SAT 99
[2017-07-24 19:57] LABS: HEMOGLOBIN A1C 5.1 % (4.3-6.0)
[2017-07-25] MEDS: ACETAMINOPHEN 325 MG TAB PO PRN (05:40)
[2017-07-25] MEDS: METOPROLOL TARTRATE 25 MG TAB G-TUBE SCH ×3 (05:41→22:00)
[2017-07-25 06:00] VITALS: BP 119/63; PULSE 86; RESP 16; TEMP 97.8; O2SAT 99
[2017-07-25] MEDS: DILTIAZEM-CD 180 MG CAP ER PO SCH (08:38)
[2017-07-25] MEDS: PANTOPRAZOLE SOD 40 MG DELAYED RELEASE TAB PO SCH (08:38)
[2017-07-25] MEDS: ESCITALOPRAM OXALATE 10 MG TAB PO SCH (08:39)
[2017-07-25] MEDS: levETIRAcetam 500 MG TAB PO SCH ×2 (08:39→19:31)
[2017-07-25] MEDS: LISINOPRIL 5 MG TAB PO SCH (08:39)
[2017-07-25] MEDS: QUEtiapine FUMARATE 25 MG TAB PO SCH ×2 (08:39→19:31)
[2017-07-25] MEDS: hydrOXYzine HCL 50 MG TAB PO PRN (08:39)
[2017-07-25] MEDS: APIXABAN 5 MG TABLET PO SCH ×2 (08:39→19:31)
[2017-07-25] MEDS: NICOTINE 21 MG/24 HR PATCH T-DERMAL SCH (08:40)
[2017-07-25] MEDS: REMOVE OLD NICODERM (NICOTINE) PATCH T-DERMAL SCH (08:40)
[2017-07-25 11:00] VITALS: BP 77/52; PULSE 60
[2017-07-25 11:05] VITALS: BP 82/60; PULSE 73
[2017-07-25 11:15] VITALS: BP 89/52; PULSE 80
--- NOTE | 2017-07-25 13:09 | HHI.PR ---
Subjective Remarks Follow-up visit A. fib, anxiety, GERD, acute diastolic failure, dysphasia, pneumonia, acute cholecystitis status post cholecystostomy tube placement. Patient seen and examined today laying in bed. Reports dysuria. States she feels tired because she has ambulated the hallway today with a walker. Denies any pain. Denies chest pain, palpitations. Denies nausea, vomiting, diarrhea. Denies shortness of breath or dyspnea Objective Vitals Vital Signs Date Time Temp Pulse Resp B/P (MAP) Pulse Ox O2 Delivery O2 Flow Rate FiO2 07/25/17 11:15 80 89/52 (64) 07/25/17 11:05 73 82/60 (67) 07/25/17 11:00 60 77/52 (60) 07/25/17 06:40 20 07/25/17 06:00 97.8 86 16 119/63 (81) 99 07/24/17 18:18 98.0 94 16 148/89 (108) 99 I/O 07/24/17 07/24/17 07/24/17 07/25/17 07/25/17 07/25/17 07:00 15:00 23:00 07:00 15:00 23:00 Intake Total 0 ml 0 ml 994 ml Output Total 160 ml Balance 0 ml 0 ml 834 ml Intake Oral 0 ml 0 ml 0 ml Tube Feeding 994 ml Drainage Total 160 ml # Voids 3 1 Result Diagram: 07/24/17 1431 Objective Remarks GENERAL: This is a well-nourished, well-developed patient, in no apparent distress. SKIN: Warm and dry. HEENT: Normocephalic. Pupils equal round and reactive. Nose without bleeding. Airway patent. NECK: Trachea midline. CARDIOVASCULAR: Irregular heart rate. Without murmurs, gallops, or rubs. RESPIRATORY: Clear to auscultation. Breath sounds equal bilaterally. No wheezes , rales, or rhonchi. GASTROINTESTINAL: Abdomen soft, nondistended. Bowel Sounds normoactive x4. Tender to palpate. Right upper quadrant cholecystostomy tube draining bilious drain moderate amount. Left upper quadrant PEG in place. MUSCULOSKELETAL: Extremities without clubbing, cyanosis. Bilateral lower extremity edema. NEUROLOGICAL: Awake and alert. Oriented to place, person. No focal neuro deficit. Moves all extremities. Normal speech. A/P Problem List: (1) Major depressive disorder, single episode, severe, with psychosis ICD Code: F32.3 - Major depressive disorder, single episode, severe with psychotic features (2) Severe mitral regurgitation ICD Code: I34.0 - Nonrheumatic mitral (valve) insufficiency (3) Cardiomyopathy ICD Code: I42.9 - Cardiomyopathy, unspecified (4) Atrial fibrillation ICD Code: I48.91 - Unspecified atrial fibrillation Assessment and Plan 57-year-old female with a medical history significant for atrial fibrillation, anxiety, GERD who presented to the hospital on 06/23/2017 with complaint of midepigastric discomfort and shortness of breath. She had complicated hospitalization and now clinically improved admitted to inpatient psychiatry unit for further evaluation. Consulted for assistance with medical management. Major depressive disorder -Managed by psychiatry team Metabolic encephalopathy Probable seizure disorder -Currently on Keepra 500mg PO Q12hrs and Dilantin 200mg Q8hrs PO. -EEG 06/25 revealed right frontal lobe sharp activity indicative of epileptiform. 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 -Continue apixaban 5 mg twice daily. -Cardiology following, appreciate recommendation. Recommends to continue on beta-jude and start SIOBHAN inhibitor if renal function normalizes. Right lower lobe pneumonia, HISTORY Strep pneumo bacteremia, HISTORY Pleural effusion -Off antibiotics -Duo nebs as needed -Monitor respiratory status Nutrition Dysphagia -PEG tube placement 07/17/2017, currently on Vital 1.5. goal at 50ml, will consult dietitian for meeting caloric intake via tube feeds -Consult speech therapy to continue to follow patient for dysphasia -N.p.o. for now as per last recommendation of speech therapy Acute cholecystitis -Cholecystostomy drain in place -Continue to care for cholecystostomy drain -Reconsult surgery, which she was followed by Dr. Sterling, for further recommendation on possible cholecystectomy and management of cholecystostomy drain Dysuria -Check UA DVT prop Eliquis Discussed with patient, nurse Mark Fofana Jul 25, 2017 1:09 pm
--- NOTE | 2017-07-25 15:01 | HHI.PYPN ---
Subjective Remarks Patient was seen and case discussed with nursing. Patient is cooperative and interactive during the interview. She is alert and oriented 3. She is perseverant on discharge and seems confused about her medical treatment. She no longer has psychosis however. She denies auditory visual hallucinations. She is oriented 3, no delusions were elicited. She denies suicidal or homicidal ideation intent or plan. Per nursing this morning she was anxious, paranoid which could be due to her medical condition. Blood pressure was low and medical team is aware continue to follow the patient Mental Status Examination Appearance: Appropriate, Disheveled (mildly) Consciousness: Alert Orientation: Person, Place, Date/Time Motor Activity: Other (patient uses walker) Speech: Unremarkable Language: Adequate Fund of Knowledge: Adequate Attention and Concentration: Other (fair) Memory: Impaired Mood: Sad Affect: Other (slight decreased range increase intensity) Thought Process & Associations: Intact Thought Content: Appropriate Hallucination Type: Auditory (denies at this time) Delusion Type: None Suicidal Ideation: No Suicidal Plan: No Suicidal Intention: No Homicidal Ideation: No Homicidal Plan: No Homicidal Intention: No Insight: Fair Judgment: Adequate Results Vitals/IOs Vital Signs Date Time Temp Pulse Resp B/P (MAP) Pulse Ox O2 Delivery O2 Flow Rate FiO2 07/25/17 11:15 80 89/52 (64) 07/25/17 06:40 20 07/25/17 06:00 97.8 99 Intake and Output 07/25/17 07/25/17 07/26/17 08:00 16:00 00:00 Intake Total 994 ml Output Total 160 ml Balance 834 ml Assessment & Plan Problem List: (1) Major depressive disorder, single episode, severe, with psychosis ICD Codes: F32.3 - Major depressive disorder, single episode, severe with psychotic features Assessment & Plan Continue current treatment plan Justification for Cont. Inpt. Patient would decompensate in a less restrictive setting Request HC Surrog/Guard Advoc?: No Odell Chatterjee DO Jul 25, 2017 15:01
[2017-07-25 16:59] LABS: AMORPHOUS SEDIMENT, URINE RARE; BILIRUBIN, URINE NEG (NEG); BLOOD, URINE NEG (NEG); GLUCOSE,URINE NEG (NEG); HYALINE CAST, URINE 8 /lpf (RARE); KETONE, URINE NEG (NEG); MUCUS URINE FEW /lpf (OCC); NITRITE,URINE NEG (NEG); PH, URINE 5.5 (5.0-8.5); SQUAMOUS EPITHELIAL CELL URINE <1 /hpf (0-5); URINE COLOR YELLOW (YELLW/STRAW); URINE LEUKOCYTE ESTERASE TRACE (NEG)
[2017-07-25] MEDS: ALUMINUM/MAGNESIUM/SIMETH 30 ML CUP PO PRN (18:00)
[2017-07-25 18:12] VITALS: BP 127/68; PULSE 76; RESP 16; TEMP 97.7; O2SAT 98
[2017-07-25] MEDS: LORazepam 1 MG TAB PO PRN (19:30)
[2017-07-26] MEDS: ACETAMINOPHEN 325 MG TAB PO PRN ×4 (02:35→22:59)
[2017-07-26] MEDS: METOPROLOL TARTRATE 25 MG TAB G-TUBE SCH ×3 (06:00→20:40)
[2017-07-26 06:31] VITALS: BP 118/65; PULSE 87; RESP 16; TEMP 97.7; O2SAT 99
--- NOTE | 2017-07-26 08:59 | HHI.PR ---
Subjective Remarks Patient seen and examined this morning. Afebrile vital signs stable. She is reporting some abdominal pain but overall doing well. Reports that she is getting up and walking around. Denies any chest pain or shortness of breath. Denies any bowel movements. Following speech recommendations currently n.p.o. Feeding via tube feeds. Objective Vitals Vital Signs Date Time Temp Pulse Resp B/P (MAP) Pulse Ox O2 Delivery O2 Flow Rate FiO2 07/26/17 06:31 97.7 87 16 118/65 (82) 99 07/26/17 03:35 20 07/25/17 18:12 97.7 76 16 127/68 (87) 98 07/25/17 11:15 80 89/52 (64) 07/25/17 11:05 73 82/60 (67) 07/25/17 11:00 60 77/52 (60) I/O 07/25/17 07/25/17 07/25/17 07/26/17 07/26/17 07/26/17 07:00 15:00 23:00 07:00 15:00 23:00 Intake Total 994 ml 0 ml 1270 ml Output Total 160 ml 130 ml 175 ml Balance 834 ml -130 ml 1095 ml Intake Oral 0 ml 0 ml 120 ml Tube Feeding 994 ml 1150 ml Drainage Total 160 ml 130 ml 175 ml # Voids 1 0 3 # Bowel Movements 0 Result Diagram: 07/24/17 1431 Objective Remarks GENERAL: This is a well-nourished, well-developed patient, in no apparent distress. SKIN: Warm and dry. HEENT: Normocephalic. Pupils equal round and reactive. Nose without bleeding. Airway patent. NECK: Trachea midline. CARDIOVASCULAR: Irregular heart rate. Without murmurs, gallops, or rubs. RESPIRATORY: Clear to auscultation. Breath sounds equal bilaterally. No wheezes , rales, or rhonchi. GASTROINTESTINAL: Abdomen soft, nondistended. Bowel Sounds normoactive x4. Tender to palpate. Right upper quadrant cholecystostomy tube draining bilious drain moderate amount. Left upper quadrant PEG in place. MUSCULOSKELETAL: Extremities without clubbing, cyanosis. Bilateral lower extremity edema. NEUROLOGICAL: Awake and alert. Oriented to place, person. No focal neuro deficit. Moves all extremities. Normal speech. Medications and IVs Current Medications Medications (Trade) Dose Ordered Sig/Salud Route Start Time Stop Time Status Last Admin (Eliquis) 5 mg BID PO 07/23/17 21:00 07/25/17 19:31 (Cardizem Cd) 360 mg DAILY PO 07/24/17 09:00 07/25/17 08:38 (Keppra) 500 mg Q12HR PO 07/23/17 21:00 07/25/17 19:31 (Prinivil) 2.5 mg DAILY PO 07/24/17 09:00 07/25/17 08:39 (Lopressor) 25 mg Q8HR G-TUBE 07/23/17 22:00 07/26/17 06:00 (Protonix) 40 mg DAILY PO 07/24/17 09:00 07/25/17 08:38 (SEROquel) 50 mg BID PO 07/23/17 21:00 07/25/17 19:31 (Ativan) 1 mg Q6H PRN PO 07/23/17 20:30 07/25/17 19:30 (Ativan Inj) 1 mg Q6H PRN IM 07/23/17 20:30 (Ativan) 0.5 mg Q12H PRN PO 07/23/17 20:30 (Ativan Inj) 0.5 mg Q12H PRN IM 07/23/17 20:30 (Tylenol) 650 mg Q4H PRN PO 07/23/17 20:30 07/26/17 02:35 (Milk Of Magnesia Liq) 30 ml DAILY PRN PO 07/23/17 20:30 (Mag-Al Plus Susp Liq) 30 ml Q6H PRN PO 07/23/17 20:30 07/25/17 18:00 (Habitrol 21 Mg Patch.24 Hr) 1 patch DAILY T-DERMAL 07/24/17 09:00 07/25/17 08:40 (Pill Splitter) 1 ea UNSCH PRN OTHER 07/23/17 21:00 Miscellaneous Information 1 DAILY T-DERMAL 07/24/17 09:00 07/25/17 08:40 (Lexapro) 10 mg DAILY PO 07/24/17 10:00 07/25/17 08:39 (Atarax) 50 mg Q6H PRN PO 07/24/17 09:30 07/25/17 08:39 A/P Problem List: (1) Major depressive disorder, single episode, severe, with psychosis ICD Code: F32.3 - Major depressive disorder, single episode, severe with psychotic features (2) Severe mitral regurgitation ICD Code: I34.0 - Nonrheumatic mitral (valve) insufficiency (3) Cardiomyopathy ICD Code: I42.9 - Cardiomyopathy, unspecified (4) Atrial fibrillation ICD Code: I48.91 - Unspecified atrial fibrillation Assessment and Plan 57-year-old female with a medical history significant for atrial fibrillation, anxiety, GERD who presented to the hospital on 06/23/2017 with complaint of midepigastric discomfort and shortness of breath. She had complicated hospitalization and now clinically improved admitted to inpatient psychiatry unit for further evaluation. Consulted for assistance with medical management. Major depressive disorder -Managed by psychiatry team Metabolic encephalopathy Probable seizure disorder -Currently on Keepra 500mg PO Q12hrs and Dilantin 200mg Q8hrs PO. -EEG 06/25 revealed right frontal lobe sharp activity indicative of epileptiform. 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 -Continue apixaban 5 mg twice daily. -Cardiology following, appreciate recommendation. Recommends to continue on beta-jude and start SIOBHAN inhibitor if renal function normalizes. Right lower lobe pneumonia, HISTORY Strep pneumo bacteremia, HISTORY Pleural effusion -Off antibiotics -Duo nebs as needed -Monitor respiratory status Nutrition Dysphagia -PEG tube placement 07/17/2017, currently on Vital 1.5. goal at 50ml, will consult dietitian for meeting caloric intake via tube feeds -Consult speech therapy to continue to follow patient for dysphasia -N.p.o. for now as per last recommendation of speech therapy Acute cholecystitis -Cholecystostomy drain in place -Continue to care for cholecystostomy drain -Reconsult surgery, which she was followed by Dr. Sterling, for further recommendation on possible cholecystectomy and management of cholecystostomy drain Dysuria -Check UA DVT prop Eliquis Discharge Planning Pending psychiatric and medical clearance. Rasheed Flynn MD, R3 Jul 26, 2017 08:59
[2017-07-26] MEDS: NICOTINE 21 MG/24 HR PATCH T-DERMAL SCH (09:00)
[2017-07-26] MEDS: REMOVE OLD NICODERM (NICOTINE) PATCH T-DERMAL SCH (09:00)
[2017-07-26] MEDS: PANTOPRAZOLE SOD 40 MG DELAYED RELEASE TAB PO SCH (09:13)
[2017-07-26] MEDS: LORazepam 1 MG TAB PO PRN ×3 (09:13→20:44)
[2017-07-26] MEDS: DILTIAZEM-CD 180 MG CAP ER PO SCH (09:14)
[2017-07-26] MEDS: LISINOPRIL 5 MG TAB PO SCH (09:14)
[2017-07-26] MEDS: ESCITALOPRAM OXALATE 10 MG TAB PO SCH (09:14)
[2017-07-26] MEDS: levETIRAcetam 500 MG TAB PO SCH ×2 (09:14→20:39)
[2017-07-26] MEDS: QUEtiapine FUMARATE 25 MG TAB PO SCH ×2 (09:14→20:41)
[2017-07-26] MEDS: APIXABAN 5 MG TABLET PO SCH ×2 (09:14→20:40)
--- NOTE | 2017-07-26 13:46 | HHI.PR ---
Subjective Subjective Notes Consulted regarding cholecystostomy tube. Please see consult from inpatient hospitalization. Patient recently transferred to psychiatry unit. She c/o RUQ abdominal pain and pain at site of recently placed PEG tube. She had paty tube placed 06/24 due to worsening clinical status, RUQ pain, small gallstone. Objective Vitals/I&O Vital Signs Date Time Temp Pulse Resp B/P (MAP) Pulse Ox O2 Delivery O2 Flow Rate FiO2 07/26/17 06:31 97.7 87 16 118/65 (82) 99 Labs Laboratory Tests Test 07/25/17 16:40 Urine Color YELLOW Urine Turbidity CLEAR Urine pH 5.5 Urine Specific [place] 1.008 Urine Protein NEG Urine Glucose (UA) NEG Urine Ketones NEG Urine Occult Blood NEG Urine Nitrite NEG Urine Bilirubin NEG Urine Urobilinogen LESS THAN 2.0 Urine Leukocyte Esterase TRACE Urine RBC 2 Urine WBC 3 Urine Squamous Epithelial Cells <1 Urine Amorphous Sediment RARE Urine Hyaline Casts 8 Urine Mucus FEW Microscopic Urinalysis Comment CULT NOT INDICATED Narrative Exam Awake, slightly lethargic but communicative Abd: RUQ ttp, paty tube in place with bilious output 200-400cc/ day for a few days. A/P Assessment and Plan 57 yo F paty tube placed on 06/24 for possible cholecystitis. LFTs not checked in a while. C/o RUQ pain. Bilious drainage. Check LFTs in am. Cholangiogram via tube, possibly clamp if LFTS ok and cystic and common ducts patent. Check gallbladder us. Joel Sterling MD Jul 26, 2017 13:46
--- NOTE | 2017-07-26 14:15 | HHI.PYPN ---
Subjective Remarks Patient was seen and case discussed with nursing. Patient is to remain slightly confused believing 5 medical doctors visited her today which is not accurate per nursing. She is alert and oriented 3. No other delusions elicited. Denies auditory hallucinations. Tolerating medications well Mental Status Examination Appearance: Appropriate, Disheveled (mildly) Consciousness: Alert Orientation: Person, Place, Date/Time Motor Activity: Other (patient uses walker) Speech: Unremarkable Language: Adequate Fund of Knowledge: Adequate Attention and Concentration: Other (fair) Memory: Impaired Mood: Sad Affect: Other (slight decreased range increase intensity) Thought Process & Associations: Intact Thought Content: Appropriate Hallucination Type: Auditory (denies at this time) Delusion Type: None Suicidal Ideation: No Suicidal Plan: No Suicidal Intention: No Homicidal Ideation: No Homicidal Plan: No Homicidal Intention: No Insight: Fair Judgment: Adequate Results Labs Test 07/25/17 16:40 Urine Color YELLOW Urine Turbidity CLEAR Urine pH 5.5 Urine Specific [place] 1.008 Urine Protein NEG mg/dL Urine Glucose (UA) NEG mg/dL Urine Ketones NEG mg/dL Urine Occult Blood NEG Urine Nitrite NEG Urine Bilirubin NEG Urine Urobilinogen LESS THAN 2.0 MG/DL Urine Leukocyte Esterase TRACE Urine RBC 2 /hpf Urine WBC 3 /hpf Urine Squamous Epithelial Cells <1 /hpf Urine Amorphous Sediment RARE Urine Hyaline Casts 8 /lpf Urine Mucus FEW /lpf Microscopic Urinalysis Comment CULT NOT INDICATED Vitals/IOs Vital Signs Date Time Temp Pulse Resp B/P (MAP) Pulse Ox O2 Delivery O2 Flow Rate FiO2 07/26/17 06:31 97.7 87 16 118/65 (82) 99 Intake and Output 07/26/17 07/26/17 07/27/17 08:00 16:00 00:00 Intake Total 1270 ml Output Total 175 ml Balance 1095 ml Assessment & Plan Problem List: (1) Major depressive disorder, single episode, severe, with psychosis ICD Codes: F32.3 - Major depressive disorder, single episode, severe with psychotic features Assessment & Plan Continue current treatment plan Justification for Cont. Inpt. Patient would decompensate in a less restrictive setting Request HC Surrog/Guard Advoc?: No Odell Chatterjee DO Jul 26, 2017 14:15
[2017-07-26 18:12] VITALS: BP 114/59; PULSE 71; RESP 16; TEMP 97.3; O2SAT 98
[2017-07-26] MEDS: ALUMINUM/MAGNESIUM/SIMETH 30 ML CUP PO PRN (18:49)
[2017-07-27] MEDS: ACETAMINOPHEN 325 MG TAB PO PRN ×4 (03:57→19:48)
[2017-07-27] MEDS: hydrOXYzine HCL 50 MG TAB PO PRN (03:57)
[2017-07-27 05:58] VITALS: BP 143/60; PULSE 79; RESP 15; TEMP 98.4; O2SAT 98
[2017-07-27] MEDS: METOPROLOL TARTRATE 25 MG TAB G-TUBE SCH ×3 (06:19→19:50)
[2017-07-27] MEDS: NICOTINE 21 MG/24 HR PATCH T-DERMAL SCH (09:00)
[2017-07-27] MEDS: REMOVE OLD NICODERM (NICOTINE) PATCH T-DERMAL SCH (09:00)
--- NOTE | 2017-07-27 09:28 | PD.TTN ---
Patient Problems 1. Discharge planning 2. Medication compliance 3. Knowledge deficit 4. Lack of coping skills Progress Toward Goals Provider Present: Dr. Geronimo Novoa Provider Input: no new informatino, pt continues to present with depressive symptoms. Occupational Therapist Input: Pt has demonstrated an increased ability to engage in conversation, she is attending to her self care with decreased need for external motivation. Documentation Scribe: Eulogio Villasenor OTR Jul 27, 2017 09:28
--- NOTE | 2017-07-27 09:57 | HHI.PYPN ---
Subjective Remarks Patient seen today in her room with floor staff, discussed with nurse, chart review, patient compliant medications. Some with calmer more appropriate appears to be doing better with her ADLs. The remain some mild confusion about this entire process but overall she seems more focused. For now continue treatment Review of Systems Except as stated in HPI: all other systems reviewed are Neg Mental Status Examination Appearance: Appropriate, Disheveled (mildly) Consciousness: Alert Orientation: Person, Place, Date/Time Motor Activity: Other (patient uses walker) Speech: Unremarkable Language: Adequate Fund of Knowledge: Adequate Attention and Concentration: Other (fair) Memory: Impaired Mood: Sad Affect: Other (slight decreased range increase intensity) Thought Process & Associations: Intact Thought Content: Appropriate Hallucination Type: Auditory (denies at this time) Delusion Type: None Suicidal Ideation: No Suicidal Plan: No Suicidal Intention: No Homicidal Ideation: No Homicidal Plan: No Homicidal Intention: No Insight: Fair Judgment: Adequate Results Vitals/IOs Vital Signs Date Time Temp Pulse Resp B/P (MAP) Pulse Ox O2 Delivery O2 Flow Rate FiO2 07/27/17 05:58 98.4 79 15 143/60 (87) 98 Intake and Output 07/27/17 07/27/17 07/28/17 08:00 16:00 00:00 Intake Total 800 ml Output Total 303 ml Balance 497 ml Assessment & Plan Problem List: (1) Major depressive disorder, single episode, severe, with psychosis ICD Codes: F32.3 - Major depressive disorder, single episode, severe with psychotic features Assessment & Plan Estimated LOS: days patient somewhat improving her focus is somewhat better, her depression is lifted somewhat. Remain somewhat psychotic related to perception of neighbors that also softening somewhat for now continue treatment Justification for Cont. Inpt. At this time patient will decompensate a placed a lower level of care Discharge Planning Probable return home Request HC Surrog/Guard Advoc?: No Stanislaw Novoa MD Jul 27, 2017 09:57
[2017-07-27] MEDS: QUEtiapine FUMARATE 25 MG TAB PO SCH ×2 (10:03→19:48)
[2017-07-27] MEDS: LISINOPRIL 5 MG TAB PO SCH (10:03)
[2017-07-27] MEDS: APIXABAN 5 MG TABLET PO SCH ×2 (10:04→19:48)
[2017-07-27] MEDS: ESCITALOPRAM OXALATE 10 MG TAB PO SCH (10:04)
[2017-07-27] MEDS: levETIRAcetam 500 MG TAB PO SCH ×2 (10:04→19:47)
[2017-07-27] MEDS: PANTOPRAZOLE SOD 40 MG DELAYED RELEASE TAB PO SCH (10:04)
[2017-07-27] MEDS: DILTIAZEM-CD 180 MG CAP ER PO SCH (10:04)
--- NOTE | 2017-07-27 10:28 | RADRPT ---
EXAM DATE/TIME: 07/27/2017 09:23 [facility] COMPARISON: ABDOMEN KUB ONLY, July 12, 2017, 12:26. INDICATIONS : Gallstones. MEDICAL HISTORY : Encephalitis. Afib. HTN. Chest pain. Gallbladder disease. GERD. Anemia. Depression. Anxiety. SURGICAL HISTORY : Tubal ligation. ENCOUNTER: Initial ACUITY: 1 day PAIN SCORE: 5/10 LOCATION: Right upper quadrant MEASUREMENTS: LIVER: 17.4 cm length COMMON DUCT: 4 mm RIGHT KIDNEY: 11.3 x 4.1 x 4.8 cm FINDINGS: LIVER: Normal echotexture without focal lesion or ductal dilatation. COMMON DUCT: No intraluminal mass or stone visualized. GALLBLADDER: The gallbladder is not identified. It appears contracted. There is no fluid within the gallbladder fo ssa. Apparently, the patient had a cholecystostomy tube. PANCREAS: The visualized portions are within normal limits. RIGHT KIDNEY: No evidence of hydronephrosis, stone, or mass. CONCLUSION: 1. The gallbladder appears completely decompressed. Apparently the patient has a cholecystostomy tube . 2. No fluid is seen within the abdomen. 3. No intrahepatic ductal dilation is identified. King Contreras MD on July 27, 2017 at 10:22 Board Certified Radiologist. This report was verified electronically.
--- NOTE | 2017-07-27 11:34 | HHI.PR ---
Subjective Remarks no fever was nauseaous and vomited when staff gave her meidicine in am abdominal pain is at both left UQ and RUQ and mid abdomen Objective Vital Signs Date Time Temp Pulse Resp B/P (MAP) Pulse Ox O2 Delivery O2 Flow Rate FiO2 07/27/17 05:58 98.4 79 15 143/60 (87) 98 07/27/17 04:57 18 07/26/17 18:12 97.3 71 16 114/59 (77) 98 I/O 07/26/17 07/26/17 07/26/17 07/27/17 07/27/17 07/27/17 07:00 15:00 23:00 07:00 15:00 23:00 Intake Total 1270 ml 800 ml Output Total 175 ml 180 ml 303 ml Balance 1095 ml -180 ml 497 ml Intake Oral 120 ml Tube Feeding 1150 ml 800 ml Output Urine Total 3 ml Drainage Total 175 ml 180 ml 300 ml # Voids 3 1 Result Diagram: 07/24/17 1431 Sohail Ruelas MD Jul 27, 2017 11:34
[2017-07-27] MEDS ORDERED: PADIMATE (CHAPSTICK) 4.5 GM TUBE TOPICAL PRN (11:45)
[2017-07-27 13:10] LABS: HEMATOCRIT 32.9 % (35.0-46.0); HEMOGLOBIN 10.2 GM/DL (11.6-15.3); MEAN CELL VOLUME 74.2 FL (80.0-100.0); MEAN CORPUSCULAR HGB CONC 30.9 % (32.0-36.0); MEAN PLATELET VOLUME 9.1 FL (7.0-11.0); PLATELET COUNT 205 TH/MM3 (150-450); RED BLOOD COUNT 4.43 MIL/MM3 (4.00-5.30); RED CELL DISTRIBUTION WIDTH 23.7 % (11.6-17.2); WHITE BLOOD COUNT 6.6 TH/MM3 (4.0-11.0)
--- NOTE | 2017-07-27 13:18 | RADRPT ---
EXAM DATE/TIME: 07/27/2017 10:44 [place] COMPARISON: No previous studies available for comparison. INDICATIONS : Patient presents with a cholecystomy tube here for cholangiogram to see if ducts are patent. MEDICAL HISTORY : Unknown SURGICAL HISTORY : Unknown ENCOUNTER: Initial ACUITY: 1 month PAIN SCORE: 9/10 LOCATION: Bilateral abdomen FLUORO TIME: .2 minutes IMAGE SERIES: 1 CONTRAST: 6 cc Omnipaque (iohexol) 350 PROCEDURE : 1. cholangiogram The risks, benefits and alternatives to the procedure were explained and verbal and written consent w as obtained. The site was prepped in sterile fashion. Full sterile technique was used, including ca p, mask, sterile gloves and gown and a large sterile sheet. Hand hygiene and 2% chlorhexidine and/or betadine/alcohol prep was utilized per protocol for cutaneous antisepsis. The skin and subcutaneous tissues were infiltrated with local anesthetic solution. Injection of the tube demonstrates a patent cystic duct and common bile duct. There is a small amount of extravasation from the fundus of the gallbladder. No stones are identified. CONCLUSION: Patent cystic and common duct. Leakage from the fundus of the gallbladder. Findings were discussed wi Dr. Sterling at the time of dictation Lalo Wong MD on July 27, 2017 at 13:14 Board Certified Radiologist. This report was verified electronically.
[2017-07-27 13:35] LABS: BICARBONATE 27.5 MEQ/L (21.0-32.0); CALCIUM 9.8 MG/DL (8.5-10.1); CREATININE 0.83 MG/DL (0.50-1.00)
[2017-07-27 13:39] LABS: DIRECT BILIRUBIN ADULT 0.3 MG/DL (0.0-0.2); INDIRECT BILIRUBIN 0.1 MG/DL (0.0-0.8); TOTAL BILIRUBIN ADULT 0.4 MG/DL (0.2-1.0); TOTAL PROTEIN 7.7 GM/DL (6.4-8.2)
[2017-07-27 18:00] VITALS: BP 113/57; PULSE 67; RESP 16; TEMP 98.1; O2SAT 98
[2017-07-27] MEDS: LORazepam 1 MG TAB PO PRN (19:48)
[2017-07-27] MEDS: ALUMINUM/MAGNESIUM/SIMETH 30 ML CUP PO PRN (20:47)
[2017-07-28] MEDS: ACETAMINOPHEN 325 MG TAB PO PRN ×3 (03:58→16:04)
[2017-07-28 06:20] VITALS: BP 133/61; PULSE 69; RESP 16; TEMP 98.2; O2SAT 98
[2017-07-28] MEDS: METOPROLOL TARTRATE 25 MG TAB G-TUBE SCH ×2 (06:26→15:59)
--- NOTE | 2017-07-28 08:56 | HHI.PYPN ---
Subjective Remarks Patient seen today in her room with the floor staff, chart reviewed, patient compliant medications, discussed with nurse. Patient appears to be showing some increased focus and processing. Hygiene has improved. She is oriented 3. States that her brothers committed pickup today to [facility]. This is similar the statement made to the counselor when she first arrived on 4 E. Need to verify its veracity. While this still somewhat of a confabulation. However he also needs to get further information from the medical service about their intent treatment for this lady. Her mental health issues appear to be resolving. Review of Systems Except as stated in HPI: all other systems reviewed are Neg Mental Status Examination Appearance: Appropriate, Disheveled (mildly) Consciousness: Alert Orientation: Person, Place, Date/Time Motor Activity: Other (patient uses walker) Speech: Unremarkable Language: Adequate Fund of Knowledge: Adequate Attention and Concentration: Other (fair) Memory: Impaired Mood: Sad Affect: Other (slight decreased range increase intensity) Thought Process & Associations: Intact Thought Content: Appropriate Hallucination Type: Auditory (denies at this time) Delusion Type: None Suicidal Ideation: No Suicidal Plan: No Suicidal Intention: No Homicidal Ideation: No Homicidal Plan: No Homicidal Intention: No Insight: Fair Judgment: Adequate Results Labs Test 07/27/17 12:45 White Blood Count 6.6 TH/MM3 Red Blood Count 4.43 MIL/MM3 Hemoglobin 10.2 GM/DL Hematocrit 32.9 % Mean Corpuscular Volume 74.2 FL Mean Corpuscular Hemoglobin 23.0 PG Mean Corpuscular Hemoglobin Concent 30.9 % Red Cell Distribution Width 23.7 % Platelet Count 205 TH/MM3 Mean Platelet Volume 9.1 FL Blood Urea Nitrogen 23 MG/DL Creatinine 0.83 MG/DL Random Glucose 142 MG/DL Total Protein 7.7 GM/DL Albumin 3.0 GM/DL Calcium Level 9.8 MG/DL Alkaline Phosphatase 588 U/L Aspartate Amino Transf (AST/SGOT) 134 U/L Alanine Aminotransferase (ALT/SGPT) 131 U/L Total Bilirubin 0.4 MG/DL Direct Bilirubin 0.3 MG/DL Sodium Level 139 MEQ/L Potassium Level 4.3 MEQ/L Chloride Level 102 MEQ/L Carbon Dioxide Level 27.5 MEQ/L Anion Gap 10 MEQ/L Estimat Glomerular Filtration Rate 70 ML/MIN Indirect Bilirubin 0.1 MG/DL Vitals/IOs Vital Signs Date Time Temp Pulse Resp B/P (MAP) Pulse Ox O2 Delivery O2 Flow Rate FiO2 07/28/17 06:20 98.2 69 16 133/61 (85) 98 Intake and Output 07/28/17 07/28/17 07/29/17 08:00 16:00 00:00 Intake Total 240 ml 60 ml Balance 240 ml 60 ml Assessment & Plan Problem List: (1) Major depressive disorder, single episode, severe, with psychosis ICD Codes: F32.3 - Major depressive disorder, single episode, severe with psychotic features Assessment & Plan Estimated LOS: days patient continues to appear somewhat confused though overall she is more focused taking [place] hygiene. Need to verify placement issues from mental health standpoint. Also need to confer further with the medical service about with their plans are for further treatment Justification for Cont. Inpt. This time patient decompensated placed in a lower level of care Discharge Planning To be determined Request HC Surrog/Guard Advoc?: No Stanislaw Novoa MD Jul 28, 2017 08:56
[2017-07-28] MEDS: REMOVE OLD NICODERM (NICOTINE) PATCH T-DERMAL SCH (09:00)
[2017-07-28] MEDS: NICOTINE 21 MG/24 HR PATCH T-DERMAL SCH (09:00)
[2017-07-28] MEDS ORDERED: MIDAZOLAM HCL 5 MG/5 ML VIAL ONE (09:21)
--- NOTE | 2017-07-28 09:55 | HHI.PR ---
Subjective Subjective Notes She c/o abdominal pain, although this seems to be mainly focused at site of PEG tube. Objective Vitals/I&O Vital Signs Date Time Temp Pulse Resp B/P (MAP) Pulse Ox O2 Delivery O2 Flow Rate FiO2 07/28/17 06:20 98.2 69 16 133/61 (85) 98 Labs Laboratory Tests Test 07/27/17 12:45 White Blood Count 6.6 Red Blood Count 4.43 Hemoglobin 10.2 Hematocrit 32.9 Mean Corpuscular Volume 74.2 Mean Corpuscular Hemoglobin 23.0 Mean Corpuscular Hemoglobin Concent 30.9 Red Cell Distribution Width 23.7 Platelet Count 205 Mean Platelet Volume 9.1 Blood Urea Nitrogen 23 Creatinine 0.83 Random Glucose 142 Total Protein 7.7 Albumin 3.0 Calcium Level 9.8 Alkaline Phosphatase 588 Aspartate Amino Transf (AST/SGOT) 134 Alanine Aminotransferase (ALT/SGPT) 131 Total Bilirubin 0.4 Direct Bilirubin 0.3 Sodium Level 139 Potassium Level 4.3 Chloride Level 102 Carbon Dioxide Level 27.5 Anion Gap 10 Estimat Glomerular Filtration Rate 70 Indirect Bilirubin 0.1 Narrative Exam Awake and alert, oriented. Abd: upper abdominal ttp; PEG in place, Paty tube with bilious output A/P Assessment and Plan 57 yo F paty tube placed on 06/24 for possible cholecystitis. LFTS with mild elevation of AST/ALT, alk phos. U/s shows decompressed gallbladder. Cholangiogram shows patent cystic and common ducts, and small leak of contrast into peritoneum. D/w Dr. Wong. Do to this leak it is not a good idea to remove paty tube. The patient seems to be doing well medically and psychologically and I recommend to proceed with lap cholecystectomy, possible open, possible IOC. I discussed the rationale, details, and risks with the patient and she desires to proceed. I discussed case with Dr. Ruelas and appreciate her input. Will hold Eliquis and plan for surgery on Thursday. AsherJoel MD Jul 28, 2017 09:55
--- NOTE | 2017-07-28 10:24 | HHI.PR ---
Subjective Remarks no fever still has abdominal pain is at both left UQ and RUQ and mid abdomen Objective Vital Signs Date Time Temp Pulse Resp B/P (MAP) Pulse Ox O2 Delivery O2 Flow Rate FiO2 07/28/17 06:20 98.2 69 16 133/61 (85) 98 07/27/17 18:00 98.1 67 16 113/57 (75) 98 I/O 07/27/17 07/27/17 07/27/17 07/28/17 07/28/17 07/28/17 07:00 15:00 23:00 07:00 15:00 23:00 Intake Total 800 ml 240 ml 840 ml 240 ml 60 ml Output Total 303 ml 200 ml Balance 497 ml 240 ml 640 ml 240 ml 60 ml Intake Oral 240 ml 840 ml 240 ml 60 ml Tube Feeding 800 ml Output Urine Total 3 ml Drainage Total 300 ml 200 ml # Voids 1 Result Diagram: 07/27/17 1245 07/27/17 1245 Objective Remarks Awake alert, oriented. Not in distress. Not in acute distress Reports of pain in her abdomen diffusely. Heart rate is regular no murmur appreciated. Lungs sounds are clear. But diminished bilaterally due to poor inspiratory effort from abdominal pain. Abdomen is soft. Tenderness at bilateral upper quadrants and mid abdomen. PEG tube site clean. Right upper quadrant cholecystostomy tube site clean. Lower extremities do not reveal any calf asymmetry or edema. Looks to be weak and frail. A/P Assessment and Plan Impression: Major depression. Management per psychiatry. Hospital stay under inpatient psychiatry from July 23, 2017 Hospital stay under medicine service from June 23, 2017 to July 23, 2017 Dysphagia. Status post PEG tube placement on July 17, 2017. Currently tube feeding is on hold. Speech and swallow evaluated the patient. Pured With honey thick liquid diet. Acute cholecystitis. Patient is status post cholecystostomy drain. However IR cholangiogram done July 27, 2017 revealed leakage. Discussed with surgery. Patient will undergo cholecystectomy on Thursday after withholding anticoagulation. Metabolic encephalopathy with probable seizures. Patient was on Keppra 500 mg daily every 12 hours and Dilantin 200 mg by mouth every 8 hours on medical floors. EEG on June 25 showed right frontal lobe sharp activity consistent with epileptiform. Repeat EEG on June 28 did not reveal any epileptiform form. Patient is not on Dilantin since July 23, 2017 since he was transferred to the psychiatry service. He was resumed on Keppra. On review of records, it just seems that Dilantin was missed rather than discontinued. His discharge summary reveals patient is to be continued on Dilantin. Will resume Dilantin at 200 mg by mouth every 8 hours. Check Dilantin level. Will likely need loading dose. Atrial fibrillation Tachybradycardia syndrome Acute on chronic diastolic heart failure Moderate to severe tricuspid regurgitation and mitral regurgitation on echo Right lower lobe pneumonia Streptococcal pneumonia Pleural effusions Plan: discussed with sx IR cholangiogram reveiwed will be transferred to medicine for further care. Patient will require cholecystectomy. hold eliquis Thursday cholecystectomy palliative care consult also to clarify code status- I have discussed with patient in detail regarding this. Patient was full code per palliative care notes on July 21, 2017. However and the psychiatry service, she was a DNR on July 24, 2017. Today when I tried to discuss this with the patient, she stated she wanted to go when chases wants her to go without any heroic efforts. She seems to be leaning towards DNR. However she states that her daughter would like her to this and her daughter Telling her that she is carline she is willing because of the disposition that she made when she was extremely sick. Would need to clarify goals of care with patient and family. Palliative care reconsulted to help with this. On medical floors, her medications will be resumed. Dilantin would also be restarted as above. DVT prophylaxis with SCD now. Eliquis to resume post surgery. Discharge Planning Per clinical course. Sohail Ruelas MD Jul 28, 2017 10:24
[2017-07-28] MEDS: levETIRAcetam 500 MG TAB PO SCH (11:11)
[2017-07-28] MEDS: DILTIAZEM-CD 180 MG CAP ER PO SCH (11:12)
[2017-07-28] MEDS: PANTOPRAZOLE SOD 40 MG DELAYED RELEASE TAB PO SCH (11:13)
[2017-07-28] MEDS: LISINOPRIL 5 MG TAB PO SCH (11:13)
[2017-07-28] MEDS: ESCITALOPRAM OXALATE 10 MG TAB PO SCH (11:13)
[2017-07-28] MEDS: QUEtiapine FUMARATE 25 MG TAB PO SCH (11:14)
[2017-07-28 12:38] VITALS: RESP 18
[2017-07-28] MEDS ORDERED: PHENYTOIN SODIUM 100 MG CAP PO SCH (14:30)
--- NOTE | 2017-07-28 15:49 | HHI.HCPN ---
Reason for visit Palliative reconsulted to assist with clarification of goals of treatment (Idalia Riggs) Subjective/Interval History Patient was recently transferred from ICU to med psych unit. Palliative care reconsulted today to continue to assist with clarification of goals of treatment , specifically to readdress/clarify CODE STATUS. This patient known to palliative from prolonged ICU course. Patient has remained stable in MedPsych unit, neuro/cognitive status improving psychiatry has cleared for transfer to medical unit. She is alert, oriented and deemed to have capacity per psychiatry. General surgery continues to follow LFTs still elevated. Most recent ultrasound gallbladder indicates decompressed gallbladder. She continues to have moderate to severe abdominal pain. Cholecystostomy tube remains in place. Plan for lap cholecystectomy Thursday. Patient seen in double room no visitors present. She is alert, oriented x3. Speech is clear. She does not remember me from prior visits, but is able to name Dr. Sterling from surgery who saw her earlier and plans for surgery on Thursday, as well as Dr. Ruelas who saw her earlier. She knows she has been in the hospital a long time for abdominal issues, she tells me she is aware she had an ulcer and required blood transfusions. She appears to have some insight to hospitalization which she indicates her family filter and on things that happened during her prolonged ventilator course. She does not have much insight or memory of that time. She tells me her plan is to proceed with surgery on Thursday try to get better enough to get out of the hospital and get back to her life. She indicates she was in the process of moving to [place]. She names her for children where they live. She tells me about her son who last year secondary to accidental electrocution. She tells me she remains very close to his significant other who was like his . Exploration of her goals of treatment going forward and preferences regarding CODE STATUS, resuscitation. She indicates that she would want ventilator and cardiac resuscitation to try for the possibility that she may get better, however she also elaborates that she would not want to remain on any type of life support for longer than 3 weeks. At that point if she is not recovering she indicates that she would want to be removed and allowed for a natural . Exploration of her prolonged ventilator course and family's election of PEG tube. She is in agreement with this as this gave her a chance to continue to get better. She does endorse that she would not want a tracheostomy should she require prolonged ventilation. Exploration of legal decision makers and if she desires to designate healthcare surrogate. She indicates that she would like Ifrah who is "like her [id number] to serve as such she trusts her to make decisions for her ( significant other of her son). She indicates she has remained in close communication with her. Family/friend interactions Call to son Kenneth per patient request. Updated on conditions, assessment, pending surgery, potential risks. He reports pt called him 2 days ago, he saw her a few days ago, she appears to him like her usual state cognitively sharp. Review of my exploration of goals, code status, decision maker, he is supportive of pt wishes. . (Idalia Riggs) Objective Vital Signs Date Time Temp Pulse Resp B/P (MAP) Pulse Ox O2 Delivery O2 Flow Rate FiO2 07/28/17 12:38 18 07/28/17 06:20 98.2 69 16 133/61 (85) 98 07/27/17 18:00 98.1 67 16 113/57 (75) 98 Intake & Output 07/28/17 07/28/17 06:59 18:59 Intake Total 840 ml 60 ml Balance 840 ml 60 ml Intake Oral 840 ml 60 ml # Voids 1 Physical Exam CONSTITUTIONAL/GENERAL: This is an adequately nourished patient, alert, oriented and pleasant TUBES/LINES/DRAINS: Rt abdomen cholecystomy tube. PEG tube dressing clean and dry. SKIN: slight jaundice. Few scattered healed round lesions to arms. Skin warm/ dry NECK: Trachea midline. Supple, nontender. No palpable thyroid enlargement or nodularity. CARDIOVASCULAR: regular rate and rhythm without murmur, Peripheral pulses symmetric. RESPIRATORY/CHEST: Symmetric, unlabored respirations on RA. Clear to auscultation. Breath sounds equal bilaterally. GASTROINTESTINAL: Abdomen soft, + tenderness to mid /rt abdomen , PEG clean and dry. Limited palpation secondary to tenderness no palpable masses. Bowel sounds present.Drain from rt side mod amt brownish yellow present NEUROLOGICAL: Alert, oriented x3, some insight into hospitalization. Cooperative, pleasant. She does follow commands. She moves all 4 extremities. PSYCHIATRIC: No anxiety or depression evident . (Idalia Riggs) Diagnostic Tests Laboratory Laboratory Tests Test 07/25/17 16:40 07/27/17 12:45 Urine Color YELLOW (YELLW/STRAW) Urine Turbidity CLEAR (CLEAR) Urine pH 5.5 (5.0-8.5) Urine Specific [place] 1.008 (1.002-1.035) Urine Protein NEG mg/dL (NEG-TRACE) Urine Glucose (UA) NEG mg/dL (NEG) Urine Ketones NEG mg/dL (NEG) Urine Occult Blood NEG (NEG) Urine Nitrite NEG (NEG) Urine Bilirubin NEG (NEG) Urine Urobilinogen LESS THAN 2.0 MG/DL (LESS Urine Leukocyte Esterase TRACE (NEG) Urine RBC 2 /hpf (0-3) Urine WBC 3 /hpf (0-5) Urine Squamous Epithelial Cells <1 /hpf (0-5) Urine Amorphous Sediment RARE Urine Hyaline Casts 8 /lpf (RARE) Urine Mucus FEW /lpf (OCC) Microscopic Urinalysis Comment CULT NOT INDICATED White Blood Count 6.6 TH/MM3 (4.0-11.0) Red Blood Count 4.43 MIL/MM3 (4.00-5.30) Hemoglobin 10.2 GM/DL (11.6-15.3) Hematocrit 32.9 % (35.0-46.0) Mean Corpuscular Volume 74.2 FL (80.0-100.0) Mean Corpuscular Hemoglobin 23.0 PG (27.0-34.0) Mean Corpuscular Hemoglobin Concent 30.9 % (32.0-36.0) Red Cell Distribution Width 23.7 % (11.6-17.2) Platelet Count 205 TH/MM3 (150-450) Mean Platelet Volume 9.1 FL (7.0-11.0) Blood Urea Nitrogen 23 MG/DL (7-18) Creatinine 0.83 MG/DL (0.50-1.00) Random Glucose 142 MG/DL (74-106) Total Protein 7.7 GM/DL (6.4-8.2) Albumin 3.0 GM/DL (3.4-5.0) Calcium Level 9.8 MG/DL (8.5-10.1) Alkaline Phosphatase 588 U/L (45-117) Aspartate Amino Transf (AST/SGOT) 134 U/L (15-37) Alanine Aminotransferase (ALT/SGPT) 131 U/L (10-53) Total Bilirubin 0.4 MG/DL (0.2-1.0) Direct Bilirubin 0.3 MG/DL (0.0-0.2) Sodium Level 139 MEQ/L (136-145) Potassium Level 4.3 MEQ/L (3.5-5.1) Chloride Level 102 MEQ/L (98-107) Carbon Dioxide Level 27.5 MEQ/L (21.0-32.0) Anion Gap 10 MEQ/L (5-15) Estimat Glomerular Filtration Rate 70 ML/MIN (>89) Indirect Bilirubin 0.1 MG/DL (0.0-0.8) (Idalia Riggs) Result Diagram: 07/27/17 1245 07/27/17 1245 Imaging Last Impressions Gall Bladder Ultrasound 07/27/17599 Signed Impressions: Service Date/Time: Thursday, July 27, 2017 09:23 - CONCLUSION: 1. The gallbladder appears completely decompressed. Apparently the patient has a cholecystostomy tube. 2. No fluid is seen within the abdomen. 3. No intrahepatic ductal dilation is identified. King Contreras MD Cholangiogram 07/27/17599 Signed Impressions: Service Date/Time: Thursday, July 27, 2017 10:44 - CONCLUSION: Patent cystic and common duct. Leakage from the fundus of the gallbladder. Findings were discussed with Dr. Sterling at the time of dictation Lalo Wong MD (Idalia Riggs) Assessment and Plan Disease Oriented Problem List: (1) Dysphagia (2) Tachy-joe syndrome (3) Severe mitral regurgitation (4) Mitral regurgitation (5) Encephalopathy (6) Cholecystitis (7) Major depressive disorder, single episode, severe, with psychosis Symptom Scale: (1) Pain 0-10 Scale: 5 (2) Dysphagia 0-10 Scale: Unable to quantify Pertinent Non-Medical Issues Psychosocial: Patient not working, have been primary caregiver for her mother and sister. . Has 4 adult children: Son, Charisse, Kenneth, Yaneth. Lost 1 son last year secondary to accidental electrocution. Spiritual: Legal: Previously patient for adult children serving as decision makers, they had elected sun attempt to service primary spokesperson; patient was very encephalopathic and unable to participate in decision-making. Mental status has steadily improved patient now capacitated and able to make her own decisions. She indicates that she may wish to designate her son's significant other Michael as healthcare surrogate. Palliative can assist with completion of healthcare surrogate documentation Ethical issues impacting care: None identified Important Contacts Son Kenneth [phone] Daughter Yaneth [phone] Daughter Charisse [phone] Son Aram [phone] like a "[id number]" Michael [phone] . Prognosis This patient was initially admitted to the hospital for acute epigastric pain, with findings of cholecystitis. During subsequent hospitalization she had respiratory failure, tachybradycardia syndrome, and had prolonged ventilation and ICU course. She was profoundly encephalopathic, which has slowly improved. Planned for laparoscopic cholecystectomy this week. Condition currently stable if she continues to improve and does not experience significant complications and setbacks she will likely discharge to rehab and then possibly back to the home setting. . Code Status: Full Code Plan * Legal decision maker:Previously patient for adult children serving as decision makers, they had elected sun attempt to service primary spokesperson; patient was very encephalopathic and unable to participate in decision-making. Mental status has steadily improved patient now capacitated and able to make her own decisions. She indicates that she may wish to designate her son's significant other Michael as healthcare surrogate. Palliative can assist with completion of healthcare surrogate documentation * Goals: Patient expresses aggressive goals at this time to continue with treatments available including surgery on Thursday for laparoscopic cholecystectomy. She wishes to remain full code at this time though does indicate that she would not want to continue with artificial measures beyond 3 weeks. She also indicates she would not want a tracheostomy. * CODE STATUS: Full code * SYMPTOMS: --Abdominal pain-cholecystitis. Cholecystostomy tube in place. Plan for laparoscopic cholecystectomy Thursday. Rates pain 5-8 out of 10 improves somewhat after prn medication, she indicates she generally does not like to take strong pain medication so tries to avoid that. She has been utilizing prn Tylenol feels it is effective at this time though generally remains "uncomfortable" in her abdomen region --Dysphasia-ST has been following during prolonged hospital course, patient previously failed barium swallow evaluation was significant aspiration noted. Status post PEG tube placement. ST continues to follow. Patient is complained about eating pure and thick diet. Her most recent ST evaluation / she tolerated soft diet with thin liquids without aspiration symptoms observed. PEG tube remains in place may be able to discontinue once she is taking adequate p.o. * Palliative care will continue to follow during hospital course as condition evolves, to assist patient/decision-maker with understanding of medical conditions, weighing benefits/burdens of treatment options, for clarification of goals of treatment. Additionally will assist with any symptoms of palliative concern (Idalia Riggs) Attestation To help prompt me to consider important information that might be impacting today's encounter and assessment, information from prior notes written by myself or my colleagues may have been "brought forward" into today's note. My signature on this note, however, is an attestation that I personally performed the exam, history, and/or decision-making noted today, and, unless otherwise indicated, the interactions with patient, family, and staff as well as the review of records all occurred today. I also attest that the listed assessment and stated plan reflect my best clinical judgment today based on the combination of historical information, prior notes, and today's exam/ interactions. When time spent is documented, it refers only to time spent today by the signer, or if indicated, combined time spent today by collaborating physician/nurse practitioner. (Idalia Riggs) Collaborating MD Comments Chart reviewed. Case discussed with palliative care STUDENT SERVICES REPRESENTATIVE. Above VERONICA note reviewed and I concur. . (Alvaro Roldan MD) Idalia Riggs Jul 28, 2017 15:49 Alvaro Roldan MD Aug 03, 2017 05:40
--- NOTE | 2017-07-28 16:08 | HHI.HCSW ---
Bench Lay Out Technician Visit Cognitive Functioning Met with Ms. Mercer for follow-up on health care surrogate, goals of care discussion following [employer] earlier visit. Ms. Mercer is currently lying in bed, alert, oriented, and able to verbalize her needs. She remains appropriate in conversation. Able to recall discussion with [facility] earlier today. . Significant Family/Friend Attempted to contact elected health care surrogate Ifrah to determine willingness to serve in this role and obtain last name. . Pertinent Social History Ms. Mercer is supported by 4 living children, 1 son . She briefly talks about her son and becomes tearful. Offered emotional support and active listening. . Quality of Life Values/Goals Gently reviewed Ms. Mercer's wishes regarding health care surrogate and goals of care. She tells me she would be accepting of a trial of mechanical ventilation if needed in an attempt to pull her through her medical condition(s), but would not want a tracheostomy or feeding tube. While she has a feeding tube at this point, she verbalizes she would not want to prolong her life with these interventions. . Advance Directive Health care surrogate completed 07/28/17. She elects Ifrah as her primary health care surrogate. Awaiting confirmation of Ifrah's last name. Elects alternate health care surrogate(s) to be any of her 4 children (Kenneth OR Aram OR Yaneth OR Charisse). In additional instructions Ms. Mercer has stated "I am willing to accept a ventilator for a trial to pull through my medical condition(s). I would not want a tracheostomy or feeding tube.". . Follow Up Visit Palliative care will continue to follow throughout hospitalization. Mihaela Tiwari, METAL TUBE CUTTER Jul 28, 2017 16:08
--- NOTE | 2017-07-28 16:08 | HHI.DS ---
Psychiatry Discharge Summary Inpatient Psychiatric care?: Yes Advance Directive: No Reason Not Provided: Due to Patient Condition Mental Health AdvanceDirective: No Health Care Proxy: No Admission Admission Date Jul 23, 2017 at 17:15 Admission Diagnosis: (1) Major depressive disorder, single episode, severe, with psychosis ICD Code: F32.3 - Major depressive disorder, single episode, severe with psychotic features Brief History Patient is 57-year-old white female was initially admitted to the medical service on 06/23/17 through 07/23/17 with visit [id number] she is admitted for rapid ventricular response atrial fibrillation and anemia. She does have a PEG tube appear she is now on palliative care with hospice services. Was seen in consultation by Dr. Gen Chahal for signs of psychosis. But Tirso. The patient psychotic features were significant for point relocated Ramachandran act patient was medically cleared support for her medical services could be continued on the med psych for yeast unit. Patient seen by me today on the unit with nurse Halie. Patient is a thin frail debilitated appearing white female she does have a PEG tube, she does have a drain in her gallbladder area that is draining bile appearing fluid. Today she denies auditory or visual hallucinations she is oriented 3, when asked about her family she became tearful stating that her adult son was electrocuted accidentally the end of last year. She states she has not had counseling or any help with grieving for that. She is vague about any prior psychiatric history. Is vague about alcohol or drug use history. In any event well Dr. Chahal initially placed the Ramachandran act on this lady due to her psychotic features, if this time I feel patient psychosis is resolving and I feel patient does have capacity to sign voluntary thus I'll lift Ramachandran act allow patient to sign voluntary. We will add Lexapro 10 mg daily to the regimen, will also have chaplains consult will us with this lady with her permission, [place] the hospitalist follow with this lady and hospice follows with this lady. Also have PT and OT assess Tobacco Use In Past 30 Days: 5 or More Cigarettes/Day Alcohol Use: Never Hospital Course Patient's hospital course was uneventful she show compliance with the medication with resolution of the psychosis and confusion. She show compliance with the medication. Her hygiene improved reactivity also improved. However her medical issues related to her gallbladder disease persisted. His main opinion today the patient received maximum benefit of her psychiatric care on . He'll discuss this with the med/surge team. Patient be discharged from / E. project admission to the [facility] service on bed 1425 for further care and attention to her medical/surgical problems Results Blood Pressure 133 / 61 Vital Signs Date Time Temp Pulse Resp B/P (MAP) Pulse Ox O2 Delivery O2 Flow Rate FiO2 07/28/17 12:38 18 07/28/17 06:20 98.2 69 133/61 (85) 98 Laboratory Tests Test 07/25/17 16:40 07/27/17 12:45 Urine Leukocyte Esterase TRACE (NEG) Urine Mucus FEW /lpf (OCC) Hemoglobin 10.2 GM/DL (11.6-15.3) Hematocrit 32.9 % (35.0-46.0) Mean Corpuscular Volume 74.2 FL (80.0-100.0) Mean Corpuscular Hemoglobin 23.0 PG (27.0-34.0) Mean Corpuscular Hemoglobin Concent 30.9 % (32.0-36.0) Red Cell Distribution Width 23.7 % (11.6-17.2) Blood Urea Nitrogen 23 MG/DL (7-18) Random Glucose 142 MG/DL (74-106) Albumin 3.0 GM/DL (3.4-5.0) Alkaline Phosphatase 588 U/L (45-117) Aspartate Amino Transf (AST/SGOT) 134 U/L (15-37) Alanine Aminotransferase (ALT/SGPT) 131 U/L (10-53) Direct Bilirubin 0.3 MG/DL (0.0-0.2) Estimat Glomerular Filtration Rate 70 ML/MIN (>89) Laboratory Results Test 07/24/17 11:10 Cholesterol Level 233 MG/DL (120-200) HDL Cholesterol 39.1 MG/DL (40.0-60.0) Hemoglobin A1c 5.1 % (4.3-6.0) LDL Cholesterol 117 MG/DL (0-99) Triglycerides Level 383 MG/DL (42-150) Summary of Procedures Please see [facility] history Imaging Last Impressions Gall Bladder Ultrasound 07/27/17 0600 Signed Impressions: Service Date/Time: Thursday, July 27, 2017 09:23 - CONCLUSION: 1. The gallbladder appears completely decompressed. Apparently the patient has a cholecystostomy tube. 2. No fluid is seen within the abdomen. 3. No intrahepatic ductal dilation is identified. King Contreras MD Cholangiogram 07/27/17 0600 Signed Impressions: Service Date/Time: Thursday, July 27, 2017 10:44 - CONCLUSION: Patent cystic and common duct. Leakage from the fundus of the gallbladder. Findings were discussed with Dr. Sterling at the time of dictation Lalo Wong MD Pending results at discharge: No Medications # of Antipsychotic meds at D/C: 1 Approp Antipsych med options 1 - Minimum of three failed multiple trials of monotherapy. 2 - Documented plan to taper to monotherapy due to previous use of multiple meds OR cross-taper in progress at D/C. 3 - Documentation of augmentation of Clozapine. 4 - Justification other than those listed in allowable values 1-3, document here : Discharge Discharge Date: Jul 28, 2017 Discharge Diagnosis: (1) Major depressive disorder, single episode, severe, with psychosis Diagnosis: Principal ICD Code: F32.3 - Major depressive disorder, single episode, severe with psychotic features Pt Condition on Discharge: Stable Discharge Disposition: Disch to Another Hospital Discharge Instructions Diet Instructions: As Tolerated, No Restrictions Additional Diet Instructions: Diet per [facility] treatment team Activities you can perform: Regular-No Restrictions Scheduled Appointment: [facility] direct admit to [facility] service [facility] bed 1425 Discharge Time > 30 minutes Mental Status Examination Appearance: Appropriate, Disheveled (mildly) Consciousness: Alert Orientation: Person, Place, Date/Time Motor Activity: Other (patient uses walker) Speech: Unremarkable Language: Adequate Fund of Knowledge: Adequate Attention and Concentration: Other (fair) Memory: Impaired Mood: Sad Affect: Other (slight decreased range increase intensity) Thought Process & Associations: Intact Thought Content: Appropriate Hallucination Type: Auditory (denies at this time) Delusion Type: None Suicidal Ideation: No Suicidal Plan: No Suicidal Intention: No Homicidal Ideation: No Homicidal Plan: No Homicidal Intention: No Insight: Fair Judgment: Adequate Discharge/Advance Care Plan Health Problems: (1) Major depressive disorder, single episode, severe, with psychosis Goals to promote your health * To prevent worsening of your condition and complications * To maintain your health at the optimal level Directions to meet your goals Take your medications as prescribed Follow your dietary instruction Follow activity as directed Keep your appointments as scheduled Take your immunizations and boosters as scheduled If your symptoms worsen call your PCP, if no PCP go to Urgent Care Center or Emergency Room For 17/11 questions related to your inpatient stay or results of tests pending at discharge, please contact Dr. Stanislaw Novoa at Smoking is Dangerous to Your Health. Avoid second hand smoking Stanislaw Novoa MD Jul 28, 2017 16:08
--- NOTE | 2017-07-29 12:53 | HHI.PYPN ---
Subjective Remarks The patient was seen today for psychiatric reevaluation, and also for concerns of capacity to sign AMA. On psychiatric evaluation today the patient is calm, cooperative, she immediately recognized me from previous encounters in psychiatry. The patient reports that she has been very upset because "I do not like the food here, and some people have been mean with me". She reports to be in a good mood now, denies suicidal and homicidal ideation, she denies visual and auditory hallucinations. The patient is logical, coherent, but concrete, at times childish and regressive. She is oriented 3, and she is able to verbalize that she is committed to continue the medical hospitalization and participate in treatment "because I know I admit this, I was just upset hours ago". Review of Systems Constitutional: DENIES: Diaphoretic episodes, Fatigue, Fever, Weight gain, Weight loss, Chills, Dizziness, Change in appetite, Night Sweats Endocrine: DENIES: Abnorml menstrual pattern, Heat/cold intolerance, Polydipsia , Polyuria, Polyphagia Eyes: DENIES: Blurred vision, Diplopia, Eye inflammation, Eye pain, Vision loss , Photosensitivity, Double Vision Ears, nose, mouth, throat: DENIES: Tinnitus, Hearing loss, Vertigo, Nasal discharge, Oral lesions, Throat pain, Hoarseness, Ear Pain, Running Nose, Epistaxis, Sinus Pain, Toothache, Odynophagia Respiratory: DENIES: Apneas, Cough, Snoring, Wheezing, Hemoptysis, Sputum production, Shortness of breath Cardiovascular: DENIES: Chest pain, Palpitations, Syncope, Dyspnea on Exertion , PND, Lower Extremity Edema, Orthopnea, Claudication Gastrointestinal: DENIES: Abdominal pain, Black stools, Bloody stools, Constipation, Diarrhea, Nausea, Vomiting, Difficulty Swallowing, Anorexia Genitourinary: DENIES: Abnormal vaginal bleeding, Dysmenorrhea, Dyspareunia, Sexual dysfunction, Urinary frequency, Urinary incontinence, Urgency, Hematuria , Dysuria, Nocturia, Vaginal discharge Musculoskeletal: DENIES: Joint pain, Muscle aches, Stiffness, Joint Swelling, Back pain, Neck pain Integumentary: DENIES: Abnormal pigmentation, Pruritus, Rash, Nail changes, Breast masses, Breast skin changes, Nipple discharge Hematologic/lymphatic: DENIES: Bruising, Lymphadenopathy Immunologic/allergic: DENIES: Eczema, Urticaria Neurologic: DENIES: Abnormal gait, Headache, Localized weakness, Paresthesias, Seizures, Speech Problems, Tremor, Poor Balance Psychiatric: DENIES: Anxiety, Confusion, Mood changes, Depression, Hallucinations, Agitation, Suicidal Ideation, Homicidal Ideation, Delusions Mental Status Examination Appearance: Appropriate, Disheveled (mildly) Consciousness: Alert Orientation: Person, Place, Date/Time Motor Activity: Other (patient uses walker) Speech: Unremarkable Language: Adequate Fund of Knowledge: Adequate Attention and Concentration: Other (fair) Memory: Impaired Mood: Sad Affect: Other (slight decreased range increase intensity) Thought Process & Associations: Intact Thought Content: Appropriate Hallucination Type: Auditory (denies at this time) Delusion Type: None Suicidal Ideation: No Suicidal Plan: No Suicidal Intention: No Homicidal Ideation: No Homicidal Plan: No Homicidal Intention: No Insight: Fair Judgment: Adequate Results Vitals/IOs Vital Signs Date Time Temp Pulse Resp B/P (MAP) Pulse Ox O2 Delivery O2 Flow Rate FiO2 07/28/17 12:38 18 07/28/17 06:20 98.2 69 133/61 (85) 98 Assessment & Plan Problem List: (1) Major depressive disorder, single episode, severe, with psychosis ICD Codes: F32.3 - Major depressive disorder, single episode, severe with psychotic features Assessment & Plan: Patient seems to be at baseline at this moment. No depression, no anxiety, no psychosis observed. Patient denies suicidal and was ideation, she denies visual and auditory hallucinations. Patient reports that she wants to continue her medical hospitalization, and wants to follow medical recommendations. Continue current psychotropics. Assessment & Plan Estimated LOS: days Justification for Cont. Inpt. No indication of psychiatric admission at this moment. Request HC Surrog/Guard Advoc?: Gen Ramirez MD Jul 29, 2017 12:52
== END 2017-07-28 18:10 | disposition short-term general hospital (02) | DRG 885 ==
LOC: H4EA 17:15 → N04B 07-28 17:00
PROVIDERS: ADMIT Psychiatry & Neurology Psychiatry; ATTEND Psychiatry & Neurology Psychiatry
DX: F32.3 Major depressive disorder, single episode, severe with psychotic features (principal); G93.41 Metabolic encephalopathy; I50.33 Acute on chronic diastolic (congestive) heart failure; I42.9 Cardiomyopathy, unspecified; I48.91 Unspecified atrial fibrillation; G40.909 Epilepsy, unspecified, not intractable, without status epilepticus; K80.00 Calculus of gallbladder with acute cholecystitis without obstruction; I49.5 Sick sinus syndrome; I08.1 Rheumatic disorders of both mitral and tricuspid valves; Z93.1 Gastrostomy status; Z51.5 Encounter for palliative care; Z93.8 Other artificial opening status; K21.9 Gastro-esophageal reflux disease without esophagitis; F41.9 Anxiety disorder, unspecified; Z79.01 Long term (current) use of anticoagulants; F17.210 Nicotine dependence, cigarettes, uncomplicated; R30.0 Dysuria
CPT/HCPCS: 47531; 76705; 76937; 80048; 80061; 80076; 81001; 83036; 83735; 84100; 85027; J2250

== ENCOUNTER 2017-07-28 10:14 | Inpatient (IN) | payer MEDICAID ==
[~2017-07-28] VITALS: Ht 157.5 cm; Wt 67.5 kg
[~2017-07-28 10:14] MED LIST changes: -OMEP20TA93 PO; -PARO20TA2 PO
[2017-07-28] MEDS: PHENYTOIN SODIUM 100 MG CAP PO SCH ×2 (14:00→22:00)
[2017-07-28] MEDS: METOPROLOL TARTRATE 25 MG TAB G-TUBE SCH ×2 (14:00→22:00)
[2017-07-28 17:00] VITALS: BP 122/64; PULSE 77; RESP 20; TEMP 98.2; O2SAT 97
[2017-07-28] MEDS ORDERED: SODIUM CHLORIDE 0.9% FLUSH 10 ML FLUSH IV FLUSH PRN (19:00)
[2017-07-28] MEDS ORDERED: PADIMATE (CHAPSTICK) 4.5 GM TUBE TOPICAL PRN (19:00)
[2017-07-28] MEDS ORDERED: NALOXONE HCL 0.4 MG/ML AMP IV PUSH PRN (19:00)
[2017-07-28 19:47] VITALS: BP 110/66; PULSE 75; RESP 16; TEMP 98.2; O2SAT 96
[2017-07-28] MEDS: QUEtiapine FUMARATE 25 MG TAB PO SCH (19:59)
[2017-07-28] MEDS: levETIRAcetam 500 MG TAB PO SCH (19:59)
[2017-07-28 20:00] VITALS: PULSE 71
[2017-07-28] MEDS: SODIUM CHLORIDE 0.9% FLUSH 10 ML FLUSH IV FLUSH SCH (20:00)
[2017-07-28] MEDS ORDERED: PILL SPLITTER OTHER PRN (21:00)
[2017-07-28] MEDS: hydrOXYzine HCL 50 MG TAB PO PRN (23:33)
[2017-07-28 23:58] VITALS: BP 115/58; PULSE 70; RESP 16; TEMP 97.8; O2SAT 96
[2017-07-29] VITALS (8 sets, daily range): BP systolic 111–129; BP diastolic 63–70; PULSE 72–108; RESP 16–19; TEMP 98.1–98.6; O2SAT 96–99
[2017-07-29] MEDS: METOPROLOL TARTRATE 25 MG TAB G-TUBE SCH ×3 (05:44→20:32)
[2017-07-29] MEDS: PHENYTOIN SODIUM 100 MG CAP PO SCH ×3 (05:44→20:32)
[2017-07-29] MEDS ORDERED: MAGNESIUM HYDROXIDE SUSP 30 ML CUP PO PRN (09:00)
[2017-07-29] MEDS ORDERED: BISACODYL 10 MG SUPP RECTAL PRN (09:00)
[2017-07-29] MEDS ORDERED: SENNOSIDES 8.6 MG TAB PO PRN (09:00)
[2017-07-29] MEDS ORDERED: LACTULOSE SYRUP 20 GM/30 ML CUP PO PRN (09:00)
[2017-07-29] MEDS: DOCUSATE SODIUM 50 MG/SENNA 8.6 MG TAB PO SCH ×2 (09:00→20:32)
[2017-07-29] MEDS: levETIRAcetam 500 MG TAB PO SCH ×2 (09:00→20:32)
[2017-07-29] MEDS: DILTIAZEM-CD 180 MG CAP ER PO SCH (11:33)
[2017-07-29] MEDS: QUEtiapine FUMARATE 25 MG TAB PO SCH ×2 (11:33→20:31)
[2017-07-29] MEDS: LISINOPRIL 5 MG TAB PO SCH (11:33)
[2017-07-29] MEDS: ESCITALOPRAM OXALATE 10 MG TAB PO SCH (11:34)
[2017-07-29] MEDS: PANTOPRAZOLE SOD 40 MG DELAYED RELEASE TAB PO SCH (11:34)
[2017-07-29] MEDS: SODIUM CHLORIDE 0.9% FLUSH 10 ML FLUSH IV FLUSH SCH ×2 (11:35→20:31)
[2017-07-29] MEDS: MORPHINE SULFATE 2 MG/ML SYRINGE IV PUSH PRN ×3 (11:35→20:33)
--- NOTE | 2017-07-29 12:10 | HHI.HP ---
HPI Service [facility] Primary Care Physician Non-Staff Admission Diagnosis Diagnoses: Chief Complaint: Abdominal pain Travel History International Travel<30 Days: No Contact w/Intl Traveler <30 Da: No Traveled to Known Affected Are: No History of Present Illness This is a 57-year-old female who was transferred from the psychiatry floor because of cholecystitis. Patient had a cholecystectomy tube 06/24 for possible cholecystitis and underwent follow-up cholangiogram showed leakage from the fundus of the gallbladder. General surgery has recommended transfer to the medical floor for laparoscopic cholecystectomy this Thursday pending washout of Eliquis for which she was taking for history of A. fib. She also had abnormal liver function test. Patient complaining of intermittent upper abdominal pain associated with chills. No fever, UTI symptoms and diarrhea. This morning she wanted to sign out AGAINST MEDICAL ADVICE because she wants her food advanced currently on pured secondary to dysphagia s/p PEG and refused lab work. Discussed with psychiatry, patient has no capacity to sign out AGAINST MEDICAL ADVICE. All other systems reviewed negative Review of Systems Except as stated in HPI: all other systems reviewed are Neg Past Family Social History Past Medical History Anxiety and depression, dysphagia status post PEG, fibrillation TR, MR, diastolic heart failure, seizure and GERD Past Surgical History As previously mentioned, BTL Reported Medications Reported Meds & Active Scripts Active Diltiazem CD 24 HR 360 Mg Capcr 360 Mg PO DAILY Pantoprazole (Pantoprazole Sodium) 40 Mg Tab 40 Mg PO DAILY Seroquel (Quetiapine Fumarate) 25 Mg Tab 50 Mg PO BID Keppra (Levetiracetam) 500 Mg Tab 500 Mg PO Q12HR Dilantin (Phenytoin Extended) 100 Mg Cap 200 Mg PO Q8HR Lisinopril 5 Mg Tab 2.5 Mg PO DAILY Metoprolol Tartrate 25 Mg Tab 25 Mg G-TUBE Q8HR Hold if systolic BP < 110 or HR < 75 Eliquis (Apixaban) 5 Mg Tab 5 Mg PO BID Allergies: Coded Allergies: Sulfa (Sulfonamide Antibiotics) (Verified Allergy, Unknown, 06/23/17) ciprofloxacin (Verified Allergy, Unknown, 06/23/17) hydromorphone (Verified Allergy, Unknown, 06/23/17) Family History CVA and [place] Social History Has not does not smoke since he has been admitted. Occasional alcohol use Physical Exam Vital Signs Vital Signs Date Time Temp Pulse Resp B/P (MAP) Pulse Ox O2 Delivery O2 Flow Rate FiO2 07/29/17 08:00 Room Air 07/29/17 08:00 98.6 86 19 129/68 (88) 98 07/29/17 04:00 Room Air 07/29/17 04:00 78 07/29/17 03:32 98.1 77 16 116/63 (80) 96 07/29/17 00:00 85 07/29/17 00:00 Room Air 07/28/17 23:58 97.8 70 16 115/58 (77) 96 07/28/17 20:00 71 07/28/17 20:00 Room Air 07/28/17 19:47 98.2 75 16 110/66 (81) 96 07/28/17 17:00 98.2 77 20 122/64 (83) 97 Physical Exam GENERAL: This is a well-nourished, well-developed patient, in no apparent distress. SKIN: No rashes, ecchymoses or lesions. Cool and dry. HEAD: Atraumatic. Normocephalic. No temporal or scalp tenderness. EYES: Pupils equal round and reactive. Extraocular motions intact. No scleral icterus. No injection or drainage. ENT: Nose without bleeding, purulent drainage or septal hematoma. Throat without erythema, tonsillar hypertrophy or exudate. Uvula midline. Airway patent. NECK: Trachea midline. No JVD or lymphadenopathy. Supple, nontender, no meningeal signs. CARDIOVASCULAR: Regular rate and rhythm without murmurs, gallops, or rubs. RESPIRATORY: Clear to auscultation. Breath sounds equal bilaterally. No wheezes , rales, or rhonchi. GASTROINTESTINAL: Abdomen soft, slightly tender over cholecystectomy tube and PEG, nondistended. No guarding. MUSCULOSKELETAL: Extremities without clubbing, cyanosis, or edema. No joint tenderness, effusion, or edema noted. No calf tenderness. Negative Homans sign bilaterally. NEUROLOGICAL: Awake and alert. Cranial nerves II through XII intact. Motor and sensory grossly within normal limits. Five out of 5 muscle strength in all muscle groups. Normal speech. Caprini VTE Risk Assessment Caprini VTE Risk Assessment: Mod/High Risk (score >= 2) Caprini Risk Assessment Model Point Value = 1 Point Value = 2 Point Value = 3 Point Value = 5 Age 41-60 Minor surgery BMI > 25 kg/m2 Swollen legs Varicose veins or History of unexplained or recurrent spontaneous Oral contraceptives or hormone replacement Sepsis (< 1 month) Serious lung disease, including pneumonia (< 1 month) Abnormal pulmonary function Acute myocardial infarction Congestive heart failure (< 1 month) History of inflammatory bowel disease Medical patient at bed rest Age 61-74 Arthroscopic surgery Major open surgery (> 45 min) Laparoscopic surgery (> 45 min) Malignancy Confined to bed (> 72 hours) Immobilizing plaster cast Central venous access Age >= 75 History of VTE Family history of VTE Factor V Leiden Prothrombin [id number] Lupus anticoagulant Anticardiolipin antibodies Elevated serum homocysteine Heparin-induced thrombocytopenia Other congenital or acquired thrombophilia Stroke (< 1 month) Elective arthroplasty Hip, pelvis, or leg fracture Acute spinal cord injury (< 1 month) Prophylaxis Regimen Total Risk Factor Score Risk Level Prophylaxis Regimen 0-1 Low Early ambulation 2 Moderate Order ONE of the following: *Sequential Compression Device (SCD) *Heparin 5000 units SQ BID 3-4 Higher Order ONE of the following medications: *Heparin 5000 units SQ TID *Enoxaparin/Lovenox 40 mg SQ daily (WT < 150 kg, CrCl > 30 mL/min) *Enoxaparin/Lovenox 30 mg SQ daily (WT < 150 kg, CrCl > 10-29 mL/min) *Enoxaparin/Lovenox 30 mg SQ BID (WT < 150 kg, CrCl > 30 mL/min) AND/OR *Sequential Compression Device (SCD) 5 or more Highest Order ONE of the following medications: *Heparin 5000 units SQ TID (Preferred with Epidurals) *Enoxaparin/Lovenox 40 mg SQ daily (WT < 150 kg, CrCl > 30 mL/min) *Enoxaparin/Lovenox 30 mg SQ daily (WT < 150 kg, CrCl > 10-29 mL/min) *Enoxaparin/Lovenox 30 mg SQ BID (WT < 150 kg, CrCl > 30 mL/min) AND *Sequential Compression Device (SCD) Assessment and Plan Problem List: (1) Cholecystitis ICD Code: K81.9 - Cholecystitis, unspecified Assessment and Plan This is a 57-year-old female who was transferred from the psychiatry floor because of cholecystitis. Patient had a cholecystectomy tube 06/24 for possible cholecystitis and underwent follow-up cholangiogram showed leakage from the fundus of the gallbladder. General surgery has recommended transfer to the medical floor for laparoscopic cholecystectomy this Thursday pending washout of Eliquis for which she was taking for history of A. fib. She also had abnormal liver function test. Start Unasyn and ct morphine for pain control. We will consult surgery and will clarify if patient can be started on Lovenox Anxiety and depression. According to psychiatry, patient has no capacity to make informed decisions. Continue Seroquel and Lexapro Dysphagia s/p PEG. Tolerating pured consult dietitian for calorie count consider removal of PEG. A fibrillation TR, MR, diastolic heart failure. Stable continue diltiazem and Lopressor. Hold Eliquis and start Lovenox if okay with surgery Seizure. Stable continue Dilantin and Keppra. Seizure precautions GERD. Stable continue PPI. Follow-up pending CBC, BMP, hepatic function panel and Dilantin level. Discussed Condition With pt Juan Mclean MD Jul 29, 2017 12:10
[2017-07-29] MEDS: ONDANSETRON HCL 4 MG/2 ML VIAL IVP PRN (15:25)
[2017-07-29] MEDS: AMPICILLIN-SULBACTAM INJ 3 GM in SODIUM CHLORIDE 0.9% INJ 100 ML IV SCH (18:13)
[2017-07-29] MEDS: hydrOXYzine HCL 50 MG TAB PO PRN (20:33)
[2017-07-30] VITALS: BP 114/73; PULSE 73; RESP 18; TEMP 98.4; O2SAT 100
[2017-07-30] MEDS: AMPICILLIN-SULBACTAM INJ 3 GM in SODIUM CHLORIDE 0.9% INJ 100 ML IV SCH ×5 (00:56→23:07)
[2017-07-30] MEDS: MORPHINE SULFATE 2 MG/ML SYRINGE IV PUSH PRN ×5 (00:56→22:22)
[2017-07-30] MEDS: METOPROLOL TARTRATE 25 MG TAB G-TUBE SCH ×3 (05:46→22:21)
[2017-07-30] MEDS: PHENYTOIN SODIUM 100 MG CAP PO SCH ×3 (05:46→22:00)
[2017-07-30] MEDS: levETIRAcetam 500 MG TAB PO SCH ×2 (09:00→22:21)
[2017-07-30] MEDS: PANTOPRAZOLE SOD 40 MG DELAYED RELEASE TAB PO SCH (09:00)
[2017-07-30] MEDS: DOCUSATE SODIUM 50 MG/SENNA 8.6 MG TAB PO SCH ×2 (09:00→21:00)
[2017-07-30 09:16] VITALS: BP 123/66; PULSE 71; RESP 20; TEMP 97.9; O2SAT 97
[2017-07-30] MEDS: SODIUM CHLORIDE 0.9% FLUSH 10 ML FLUSH IV FLUSH SCH ×2 (10:00→22:20)
[2017-07-30] MEDS: DILTIAZEM-CD 180 MG CAP ER PO SCH (10:00)
[2017-07-30] MEDS: ESCITALOPRAM OXALATE 10 MG TAB PO SCH (10:01)
[2017-07-30] MEDS: QUEtiapine FUMARATE 25 MG TAB PO SCH ×2 (10:02→22:21)
[2017-07-30] MEDS: LISINOPRIL 5 MG TAB PO SCH (10:02)
[2017-07-30 12:17] VITALS: BP 115/66; PULSE 74; RESP 20; TEMP 97.5; O2SAT 92
[2017-07-30 12:32] LABS: AUTOMATED NEUTROPHIL # 3.8 TH/MM3 (1.8-7.7); BASOPHIL % 0.8 % (0.0-2.0); EOSINOPHIL # 0.1 TH/MM3 (0-0.4); EOSINOPHIL % 2.1 % (0.0-4.0); HEMATOCRIT 31.4 % (35.0-46.0); LYMPH % 26.2 % (9.0-44.0); LYMPHOCYTE # 1.7 TH/MM3 (1.0-4.8); MEAN CELL VOLUME 73.3 FL (80.0-100.0); MEAN CORPUSCULAR HEMOGLOBIN 23.4 PG (27.0-34.0); MEAN CORPUSCULAR HGB CONC 31.9 % (32.0-36.0); MEAN PLATELET VOLUME 8.6 FL (7.0-11.0); MONO % 11.2 % (0.0-8.0); MONOCYTE # 0.7 TH/MM3 (0-0.9); NEUT % 59.7 % (16.0-70.0); PLATELET COUNT 222 TH/MM3 (150-450); RED BLOOD COUNT 4.29 MIL/MM3 (4.00-5.30); RED CELL DISTRIBUTION WIDTH 24.5 % (11.6-17.2); WHITE BLOOD COUNT 6.4 TH/MM3 (4.0-11.0)
[2017-07-30 12:59] LABS: ALBUMIN 3.2 GM/DL (3.4-5.0); BICARBONATE 25.8 MEQ/L (21.0-32.0); CALCIUM 10.2 MG/DL (8.5-10.1); CREATININE 1.01 MG/DL (0.50-1.00); DIRECT BILIRUBIN ADULT 0.2 MG/DL (0.0-0.2)
[2017-07-30 13:02] LABS: INDIRECT BILIRUBIN 0.2 MG/DL (0.0-0.8); PHENYTOIN (DILANTIN) 4.8 MCG/ML (10.0-20.0); TOTAL BILIRUBIN ADULT 0.4 MG/DL (0.2-1.0); TOTAL PROTEIN 8.3 GM/DL (6.4-8.2)
--- NOTE | 2017-07-30 14:24 | HHI.PR ---
Subjective Remarks Follow-up cholecystitis. Complaining abdominal pain where she has cholecystostomy tube. Cannot wait for it to be removed. Discussed with nursing Objective Vitals Vital Signs Date Time Temp Pulse Resp B/P (MAP) Pulse Ox O2 Delivery O2 Flow Rate FiO2 07/30/17 12:17 97.5 74 20 115/66 (82) 92 07/30/17 10:49 97 Room Air 07/30/17 09:16 97.9 71 20 123/66 (85) 97 07/30/17 04:00 Room Air 07/30/17 00:00 98.4 73 18 114/73 (87) 100 07/30/17 00:00 Room Air 07/29/17 20:00 Room Air 07/29/17 20:00 98.2 74 16 111/70 (84) 99 07/29/17 16:00 Room Air 07/29/17 16:00 98.2 92 19 128/66 (86) 98 I/O 07/29/17 07/29/17 07/29/17 07/30/17 07/30/17 07/30/17 07:00 15:00 23:00 07:00 15:00 23:00 Intake Total 360 ml 480 ml Output Total 525 ml 1420 ml 1125 ml Balance -165 ml -940 ml -1125 ml Intake Oral 360 ml 480 ml Output Urine Total 300 ml 1200 ml 900 ml Drainage Total 225 ml 220 ml 225 ml # Voids 4 # Bowel Movements 0 1 Result Diagram: 07/30/17 1158 07/30/17 1158 Objective Remarks GENERAL: This is a well-nourished, well-developed patient, in no apparent distress. SKIN: No rashes, ecchymoses or lesions. Cool and dry. CARDIOVASCULAR: Regular rate and rhythm without murmurs, gallops, or rubs. RESPIRATORY: Clear to auscultation. Breath sounds equal bilaterally. No wheezes , rales, or rhonchi. GASTROINTESTINAL: Abdomen soft, slightly tender over cholecystectomy tube and PEG, nondistended. No guarding. MUSCULOSKELETAL: Extremities without clubbing, cyanosis, or edema. No joint tenderness, effusion, or edema noted. No calf tenderness. Negative Homans sign bilaterally. NEUROLOGICAL: Awake and alert. Cranial nerves II through XII intact. Motor and sensory grossly within normal limits. Five out of 5 muscle strength in all muscle groups. Normal speech. A/P Problem List: (1) Cholecystitis ICD Code: K81.9 - Cholecystitis, unspecified Assessment and Plan This is a 57-year-old female who was transferred from the psychiatry floor because of cholecystitis. Patient had a cholecystectomy tube 06/24 for possible cholecystitis and underwent follow-up cholangiogram showed leakage from the fundus of the gallbladder. General surgery has recommended transfer to the medical floor for laparoscopic cholecystectomy this Thursday tomorrow pending washout of Eliquis (last dose July 27, 2017) for which she was taking for history of A. fib. She also had abnormal liver function test. She is stable improving transaminitis. Denies chills today. Continue Unasyn and morphine for pain control. We will consult surgery and will clarify if patient can be started on Lovenox Anxiety and depression. Discussed with psychiatry, patient has no capacity to make informed decisions. Continue Seroquel and Lexapro Dysphagia s/p PEG. Tolerating pured consult dietitian for calorie count consider removal of PEG. A fibrillation TR, MR, diastolic heart failure. Stable continue diltiazem and Lopressor. Hold Eliquis and start Lovenox if okay with surgery Seizure. Subtherapeutic Dilantin level will give extra 500 mg p.o. Dilantin 1 and continue 200 mg twice a day and Keppra. Patient has been counseled she refused Dilantin dose this morning seizure precautions GERD. Stable continue PPI. Juan Mclean MD Jul 30, 2017 14:24
[2017-07-30 16:38] VITALS: BP 124/69; PULSE 58; RESP 20; TEMP 97.8; O2SAT 100
[2017-07-30] MEDS ORDERED: PHENYTOIN SODIUM 100 MG CAP PO ONE ×2 (17:00)
--- NOTE | 2017-07-30 17:35 | HHI.PR ---
Subjective Subjective Notes She continues to complain of pain at the paty tube site and G tube site. She is eager to be leaving the hospital soon. Family is present at bedside today. Objective Vitals/I&O Vital Signs Date Time Temp Pulse Resp B/P (MAP) Pulse Ox O2 Delivery O2 Flow Rate FiO2 07/30/17 16:38 97.8 58 20 124/69 (87) 100 07/30/17 12:00 Room Air Labs Laboratory Tests Test 07/30/17 11:58 White Blood Count 6.4 Red Blood Count 4.29 Hemoglobin 10.0 Hematocrit 31.4 Mean Corpuscular Volume 73.3 Mean Corpuscular Hemoglobin 23.4 Mean Corpuscular Hemoglobin Concent 31.9 Red Cell Distribution Width 24.5 Platelet Count 222 Mean Platelet Volume 8.6 Neutrophils (%) (Auto) 59.7 Lymphocytes (%) (Auto) 26.2 Monocytes (%) (Auto) 11.2 Eosinophils (%) (Auto) 2.1 Basophils (%) (Auto) 0.8 Neutrophils # (Auto) 3.8 Lymphocytes # (Auto) 1.7 Monocytes # (Auto) 0.7 Eosinophils # (Auto) 0.1 Basophils # (Auto) 0.0 CBC Comment DIFF FINAL Differential Comment Hematology Comments Blood Urea Nitrogen 23 Creatinine 1.01 Random Glucose 94 Total Protein 8.3 Albumin 3.2 Calcium Level 10.2 Alkaline Phosphatase 522 Aspartate Amino Transf (AST/SGOT) 85 Alanine Aminotransferase (ALT/SGPT) 110 Total Bilirubin 0.4 Direct Bilirubin 0.2 Sodium Level 137 Potassium Level 4.7 Chloride Level 102 Carbon Dioxide Level 25.8 Anion Gap 9 Estimat Glomerular Filtration Rate 56 Indirect Bilirubin 0.2 Phenytoin (Dilantin) Level 4.8 Narrative Exam NAD Nonlabored breathing Abd: soft, mild ttp upper abdomen, paty tube with bilious drainage, G tube clamped A/P Assessment and Plan 57 yo F with recent prolonged hospitalization, acute cholecystitis s/p cholecystostomy tube placement. Cholangiogram showed small amt of intraperitoneal leak of contrast, patent cystic and common ducts. Due to h/o cholecystitis and especially intraperitoneal leak, I have recommended to proceed with cholecystectomy. I again discussed rationale and details of procedure with the patient, and also this time with her family. They are all in agreement to proceed. Asher,Joel RENTERIA Jul 30, 2017 17:35
[2017-07-30 20:00] VITALS: BP 130/72; PULSE 85; RESP 18; TEMP 97.8; O2SAT 93
[2017-07-30] MEDS ORDERED: LACTATED RINGER'S 1000 ML IV PRN (20:30)
[2017-07-30] MEDS ORDERED: POVIDONE IODINE 5% (ANTISEPSIS KIT) 4 APPLICATIONS EACH NARE PRN (20:30)
[2017-07-30] MEDS ORDERED: CHLORHEXIDINE GLUCONATE 2 % 1 PACK (2 CLOTHS) TOPICAL PRN (20:30)
[2017-07-30] MEDS ORDERED: SODIUM CHLORID 0.9% 500 ML IV PRN (20:30)
[2017-07-31] VITALS (7 sets, daily range): BP systolic 108–128; BP diastolic 60–98; PULSE 72–93; RESP 17–18; TEMP 97.5–98.6; O2SAT 94–100
[2017-07-31] MEDS: MORPHINE SULFATE 2 MG/ML SYRINGE IV PUSH PRN ×3 (03:46→14:06)
[2017-07-31] MEDS: METOPROLOL TARTRATE 25 MG TAB G-TUBE SCH ×3 (05:05→20:25)
[2017-07-31] MEDS: AMPICILLIN-SULBACTAM INJ 3 GM in SODIUM CHLORIDE 0.9% INJ 100 ML IV SCH ×4 (05:06→23:44)
[2017-07-31] MEDS: PHENYTOIN SODIUM 100 MG CAP PO SCH ×3 (05:06→22:00)
[2017-07-31] MEDS ORDERED: BUPIVACAINE/EPINEPHRINE 0.25% 50 ML VIAL ONE (07:01)
[2017-07-31] MEDS: SODIUM CHLORIDE 0.9% FLUSH 10 ML FLUSH IV FLUSH SCH ×2 (07:13→20:26)
[2017-07-31] MEDS: ESCITALOPRAM OXALATE 10 MG TAB PO SCH (08:00)
[2017-07-31] MEDS: PANTOPRAZOLE SOD 40 MG DELAYED RELEASE TAB PO SCH (08:00)
[2017-07-31] MEDS: LISINOPRIL 5 MG TAB PO SCH (08:01)
[2017-07-31] MEDS: DOCUSATE SODIUM 50 MG/SENNA 8.6 MG TAB PO SCH ×2 (08:01→20:25)
[2017-07-31] MEDS: DILTIAZEM-CD 180 MG CAP ER PO SCH (08:01)
[2017-07-31] MEDS: QUEtiapine FUMARATE 25 MG TAB PO SCH ×2 (08:01→20:24)
[2017-07-31] MEDS: levETIRAcetam 500 MG TAB PO SCH ×2 (08:03→20:27)
[2017-07-31] MEDS ORDERED: VASOPRESSIN 20 UNITS/ML VIAL ONE (09:40)
[2017-07-31] MEDS ORDERED: SUGAMMADEX SODIUM 200 MG/2 ML VIAL IV PUSH ONE (09:43)
--- NOTE | 2017-07-31 10:30 | PD.OP ---
cc: Joel Sterling MD Operative Report Date of Surgery: Jul 31, 2017 Preoperative Diagnosis: (1) Cholecystostomy tube dysfunction (2) Bile leak (3) Cholecystitis Postoperative Diagnosis: (1) Cholecystostomy tube dysfunction (2) Bile leak (3) Cholecystitis Procedure: Laparoscopic cholecystectomy Removal of cholecystostomy tube Anesthesia: SASHA Surgeon: Joel Sterling Outpatient Case Manager(s): Yordy Cosme [facility] Operation and Findings: Complications: None apparent EBL: 5cc Operative findings: Chronic gallbladder wall thickening. Cholecystostomy tube in place. This was through small portion of the liver and into the dome of the gallbladder. On cholangiogram via the cholecystostomy tube this week by radiology, there is evidence of leakage of contrast into the peritoneal cavity. At the time of surgery there is no obvious bile leak into the abdominal cavity. Procedure in detail: The patient was taken to the operating room and placed in the supine position. General endotracheal anesthesia was induced. The abdomen was prepped and draped in usual sterile fashion and a surgical timeout was performed to verify correct patient procedure and site. Appropriate perioperative antibiotics were administered. Local anesthetic was injected in the skin and subcutaneous tissue inferior and left of the umbilicus and a 5 mm incision performed. The abdomen was entered using the Optiview 5 mm trocar with direct laparoscopic visualization. The abdomen was then insufflated to 15 mmHg with CO2 gas which the patient tolerated well. Next a 12 mm port was placed in the epigastrium and two 5 mm ports in the right upper quadrant and right lateral abdomen. The patient was placed in reverse Trendelenburg position and turned slightly to the left. Attention was turned to the right upper quadrant. The cholecystostomy tube was going through a small portion of the liver into the dome of the gallbladder. Omental adhesions to the gallbladder were taken down with electrocautery. The cholecystostomy tube suture at the level of the skin was cut and the cholecystostomy tube was removed. The dome of the gallbladder was grasped and retracted cephalad. The infundibulum was retracted laterally to expose Calot's triangle. Blunt dissection and judicious use of electrocautery was used to expose the cystic duct and the cystic artery directly entering the gallbladder. Two clips were placed proximally on each of these structures and one distally and they were transected. The gallbladder was then removed from the liver bed using electrocautery. Hemostasis was achieved. The entry of the cholecystostomy tube tract into the liver was cauterized and there was no bleeding or leakage of bile at the liver capsule or the gallbladder fossa. The gallbladder was then removed from the abdomen using an Endo Catch bag. The clips were in place on the cystic duct and cystic artery stumps with no bleeding or bile leakage. At this point, the abdomen was allowed to desufflate and trochars were removed. The fascia at the 12 mm port site was closed with 0 Vicryl suture. Skin was closed with subcuticular 4-0 Monocryl as well as Dermabond. The cholecystostomy tube site on the skin was cauterized to decrease the likelihood of persistent epithelialized tract. The patient tolerated the procedure well and was extubated and taken to PACU in stable condition. All sponge and instrument counts were correct. Joel Sterling MD Jul 31, 2017 10:30
[2017-07-31] MEDS ORDERED: ACETAMINOPHEN 1000 MG/100 ML 100 ML IV ONE (10:53)
[2017-07-31] MEDS ORDERED: MIDAZOLAM HCL 2 MG/2 ML VIAL ONE (10:54)
[2017-07-31] MEDS: KETOROLAC TROMETHAMINE 30 MG/ML (IVP) VIAL IV PUSH SCH ×3 (11:30→23:48)
[2017-07-31] MEDS: ONDANSETRON HCL 4 MG/2 ML VIAL IVP PRN (11:59)
[2017-07-31] MEDS ORDERED: LIDOCAINE HCL 1% PF 5 ML SYRINGE OTHER ONE (12:00)
[2017-07-31] MEDS ORDERED: PHENYLEPHRINE HCL 10 MG/ML VIAL IV ONE (12:00)
[2017-07-31] MEDS ORDERED: ONDANSETRON HCL 4 MG/2 ML VIAL IV ONE (12:00)
[2017-07-31] MEDS ORDERED: DEXAMETHASONE SOD PHOS 4 MG/ML VIAL IV ONE (12:00)
[2017-07-31] MEDS ORDERED: PROPOFOL 200 MG/20 ML AMP IV ONE (12:00)
[2017-07-31] MEDS ORDERED: ROCURONIUM INJ 50 MG/5 ML SYRINGE IV PUSH ONE (12:00)
[2017-07-31] MEDS ORDERED: ePHEDrine/NS 25 MG/5 ML SYRINGE IV ONE (12:00)
[2017-07-31] MEDS ORDERED: PHENYLEPH/NS 1000 MCG/10 ML SYR IV ONE (12:00)
--- NOTE | 2017-07-31 19:08 | HHI.PR ---
Subjective Remarks Status post cholecystectomy today. No complaints from the patient when seen. PEG tube is in place. Patient would like PEG tube removed. Objective Vital Signs Date Time Temp Pulse Resp B/P (MAP) Pulse Ox O2 Delivery O2 Flow Rate FiO2 07/31/17 16:00 98.6 91 18 113/63 (80) 100 07/31/17 14:19 95 07/31/17 12:04 97.5 93 17 108/60 (76) 95 07/31/17 11:30 98.1 90 16 114/55 (74) 100 Nasal Cannula 3 07/31/17 11:15 94 16 113/58 (76) 100 Nasal Cannula 3 07/31/17 11:00 92 15 121/57 (78) 100 Nasal Cannula 3 07/31/17 10:43 98.2 99 15 145/63 (90) 100 Nasal Cannula 3 07/31/17 08:00 98.1 93 18 123/73 (90) 98 07/31/17 04:00 97.9 72 18 127/67 (87) 97 07/31/17 03:58 Room Air 07/31/17 00:00 98.1 79 18 124/63 (83) 94 07/31/17 00:00 Room Air 07/30/17 20:00 97.8 85 18 130/72 (91) 93 07/30/17 20:00 Room Air I/O 07/30/17 07/30/17 07/30/17 07/31/17 07/31/17 07/31/17 07:00 15:00 23:00 07:00 15:00 23:00 Intake Total 500 ml 580 ml Output Total 1125 ml 450 ml 105 ml Balance -1125 ml -450 ml 395 ml 580 ml Intake Oral 480 ml IV Total 500 ml 100 ml Output Urine Total 900 ml Drainage Total 225 ml 450 ml 100 ml Estimated Blood Loss 5 ml # Voids 4 3 # Bowel Movements 0 Result Diagram: 07/30/17 1158 07/30/17 1158 Objective Remarks GENERAL: NAD, A&Ox3 HEAD: Normocephalic. NECK: Supple, trachea midline. No lymphadenopathy. EYES: No scleral icterus. No injection or drainage. CARDIOVASCULAR: Regular rate and rhythm without murmurs, gallops, or rubs. RESPIRATORY: Breath sounds equal bilaterally. No accessory muscle use. GASTROINTESTINAL: Abdomen soft, non-tender, nondistended. PEG tube in place, no erythema. MUSCULOSKELETAL: No cyanosis, or edema. SKIN: Warm and dry. NEURO: No focal neurological deficitis. A/P Problem List: (1) Cholecystostomy tube dysfunction ICD Code: T85.518A - Breakdown (mechanical) of other gastrointestinal prosthetic devices, implants and grafts, initial encounter (2) Bile leak ICD Code: K83.9 - Disease of biliary tract, unspecified (3) Cholecystitis ICD Code: K81.9 - Cholecystitis, unspecified Assessment and Plan 57-year-old female admitted secondary to cholecystitis Cholecystitis Status post cholecystectomy Surgery following Continue as needed pain treatments Gen. anxiety disorder Depression Continue Seroquel Continue Lexapro Dysphagia Improved from prior baseline Tolerating pured diet Consider PEG removal Calorie count and process Atrial fibrillation Continue diltiazem Continue Lopressor Eliquis on hold Lovenox Tricuspid regurg Mitral regurg Diastolic heart failure No exacerbations of these conditions Follow clinically Seizure disorder Dilantin DVT prophylaxis Lovenox King Pantoja MD Jul 31, 2017 19:08
[2017-08-01] VITALS (7 sets, daily range): BP systolic 105–154; BP diastolic 57–68; PULSE 72–86; RESP 16–20; TEMP 97.4–98.5; O2SAT 86–99
[2017-08-01] MEDS: MORPHINE SULFATE 2 MG/ML SYRINGE IV PUSH PRN ×4 (02:53→20:43)
[2017-08-01] MEDS: METOPROLOL TARTRATE 25 MG TAB G-TUBE SCH ×3 (06:00→20:42)
[2017-08-01] MEDS: AMPICILLIN-SULBACTAM INJ 3 GM in SODIUM CHLORIDE 0.9% INJ 100 ML IV SCH ×4 (06:00→23:03)
[2017-08-01] MEDS: KETOROLAC TROMETHAMINE 30 MG/ML (IVP) VIAL IV PUSH SCH ×4 (06:00→23:03)
[2017-08-01] MEDS: PHENYTOIN SODIUM 100 MG CAP PO SCH ×3 (06:00→20:42)
[2017-08-01 07:16] LABS: AUTOMATED NEUTROPHIL # 4.9 TH/MM3 (1.8-7.7); BASOPHIL % 0.5 % (0.0-2.0); EOSINOPHIL # 0.1 TH/MM3 (0-0.4); HEMATOCRIT 31.2 % (35.0-46.0); HEMOGLOBIN 9.7 GM/DL (11.6-15.3); LYMPH % 21.6 % (9.0-44.0); LYMPHOCYTE # 1.5 TH/MM3 (1.0-4.8); MEAN CORPUSCULAR HEMOGLOBIN 23.1 PG (27.0-34.0); MEAN CORPUSCULAR HGB CONC 31.2 % (32.0-36.0); MONO % 7.1 % (0.0-8.0); MONOCYTE # 0.5 TH/MM3 (0-0.9); NEUT % 69.8 % (16.0-70.0); PLATELET COUNT 178 TH/MM3 (150-450); RED BLOOD COUNT 4.21 MIL/MM3 (4.00-5.30); RED CELL DISTRIBUTION WIDTH 24.2 % (11.6-17.2); WHITE BLOOD COUNT 7.1 TH/MM3 (4.0-11.0)
[2017-08-01 07:48] LABS: AST (GOT) 82 U/L (15-37); BICARBONATE 24.3 MEQ/L (21.0-32.0); BLOOD UREA NITROGEN 30 MG/DL (7-18); CHLORIDE 100 MEQ/L (98-107); CREATININE 1.03 MG/DL (0.50-1.00); GLOMERULAR FILTRATION RATE 55 ML/MIN (>89); GLUCOSE,RANDOM 84 MG/DL (74-106); SODIUM (NA) 133 MEQ/L (136-145)
[2017-08-01 07:51] LABS: ALKALINE PHOSPHATASE 501 U/L (45-117); ALT (GPT) 96 U/L (10-53); TOTAL BILIRUBIN ADULT 0.4 MG/DL (0.2-1.0); TOTAL PROTEIN 7.8 GM/DL (6.4-8.2)
[2017-08-01] MEDS: ESCITALOPRAM OXALATE 10 MG TAB PO SCH (08:45)
[2017-08-01] MEDS: QUEtiapine FUMARATE 25 MG TAB PO SCH ×2 (08:46→20:42)
[2017-08-01] MEDS: DOCUSATE SODIUM 50 MG/SENNA 8.6 MG TAB PO SCH ×2 (08:46→20:41)
[2017-08-01] MEDS: DILTIAZEM-CD 180 MG CAP ER PO SCH (08:46)
[2017-08-01] MEDS: LISINOPRIL 5 MG TAB PO SCH (08:47)
[2017-08-01] MEDS: levETIRAcetam 500 MG TAB PO SCH ×2 (08:47→20:41)
[2017-08-01] MEDS: SODIUM CHLORIDE 0.9% FLUSH 10 ML FLUSH IV FLUSH SCH ×2 (08:55→20:41)
[2017-08-01] MEDS: PANTOPRAZOLE SOD 40 MG DELAYED RELEASE TAB PO SCH (08:55)
[2017-08-01] MEDS: hydrOXYzine HCL 50 MG TAB PO PRN (10:11)
--- NOTE | 2017-08-01 10:35 | HHI.PR ---
Subjective Subjective Notes Has some post op pain and pain at G tube site but doing well overall. Objective Vitals/I&O Vital Signs Date Time Temp Pulse Resp B/P (MAP) Pulse Ox O2 Delivery O2 Flow Rate FiO2 08/01/17 08:00 98.3 72 19 126/62 (83) 97 07/31/17 19:49 Room Air 07/31/17 11:30 3 Labs Laboratory Tests Test 08/01/17 06:36 White Blood Count 7.1 Red Blood Count 4.21 Hemoglobin 9.7 Hematocrit 31.2 Mean Corpuscular Volume 74.0 Mean Corpuscular Hemoglobin 23.1 Mean Corpuscular Hemoglobin Concent 31.2 Red Cell Distribution Width 24.2 Platelet Count 178 Mean Platelet Volume 9.0 Neutrophils (%) (Auto) 69.8 Lymphocytes (%) (Auto) 21.6 Monocytes (%) (Auto) 7.1 Eosinophils (%) (Auto) 1.0 Basophils (%) (Auto) 0.5 Neutrophils # (Auto) 4.9 Lymphocytes # (Auto) 1.5 Monocytes # (Auto) 0.5 Eosinophils # (Auto) 0.1 Basophils # (Auto) 0.0 CBC Comment DIFF FINAL Differential Comment Blood Urea Nitrogen 30 Creatinine 1.03 Random Glucose 84 Total Protein 7.8 Albumin 3.0 Calcium Level 10.0 Alkaline Phosphatase 501 Aspartate Amino Transf (AST/SGOT) 82 Alanine Aminotransferase (ALT/SGPT) 96 Total Bilirubin 0.4 Sodium Level 133 Potassium Level 4.5 Chloride Level 100 Carbon Dioxide Level 24.3 Anion Gap 9 Estimat Glomerular Filtration Rate 55 Narrative Exam NAD Nonlabored breathing Abd: inc c/d/i, G tube in place, post op ttp A/P Assessment and Plan 57 yo F with recent prolonged hospitalization, acute cholecystitis, POD 1 s/p lap paty. Doing well post op. Clear for dc from surgical standpoint. G tube removal needs to be discussed with radiology. Joel Sterling MD Aug 01, 2017 10:35
[2017-08-01] MEDS ORDERED: KETO10 PO (10:36)
--- NOTE | 2017-08-01 15:23 | HHI.PR ---
Subjective Remarks Patient has been medically cleared by surgery. At this point is safe to remove the PEG tube. She had a PEG tube placed with IR. She would like the PEG tube out prior to discharge. She no longer needs a PEG tube and has been tolerating eating her diet. Objective Vital Signs Date Time Temp Pulse Resp B/P (MAP) Pulse Ox O2 Delivery O2 Flow Rate FiO2 08/01/17 12:00 98.0 79 18 116/65 (82) 99 08/01/17 10:28 97 21 08/01/17 08:00 98.3 72 19 126/62 (83) 97 08/01/17 04:00 97.4 85 16 105/57 (73) 99 08/01/17 00:00 97.4 81 17 108/60 (76) 99 07/31/17 20:00 97.7 90 18 128/98 (108) 99 07/31/17 19:49 Room Air 07/31/17 16:00 98.6 91 18 113/63 (80) 100 I/O 07/31/17 07/31/17 07/31/17 08/01/17 08/01/17 08/01/17 07:00 15:00 23:00 07:00 15:00 23:00 Intake Total 500 ml 580 ml 320 ml Output Total 450 ml 105 ml Balance -450 ml 395 ml 580 ml 320 ml Intake Oral 480 ml 120 ml IV Total 500 ml 100 ml 200 ml Drainage Total 450 ml 100 ml Estimated Blood Loss 5 ml # Voids 3 3 # Bowel Movements 0 Result Diagram: 08/01/17 0636 08/01/17 0636 Objective Remarks GENERAL: NAD, A&Ox3 HEAD: Normocephalic. NECK: Supple, trachea midline. No lymphadenopathy. EYES: No scleral icterus. No injection or drainage. CARDIOVASCULAR: Regular rate and rhythm without murmurs, gallops, or rubs. RESPIRATORY: Breath sounds equal bilaterally. No accessory muscle use. GASTROINTESTINAL: Abdomen soft, non-tender, nondistended. PEG tube in place, no erythema. MUSCULOSKELETAL: No cyanosis, or edema. SKIN: Warm and dry. NEURO: No focal neurological deficitis. A/P Problem List: (1) Cholecystostomy tube dysfunction ICD Code: T85.518A - Breakdown (mechanical) of other gastrointestinal prosthetic devices, implants and grafts, initial encounter (2) Bile leak ICD Code: K83.9 - Disease of biliary tract, unspecified (3) Cholecystitis ICD Code: K81.9 - Cholecystitis, unspecified Assessment and Plan 57-year-old female admitted secondary to cholecystitis IR consult for PEG tube removal. Patient has been surgically cleared in regards to her recent cholecystectomy. Cholecystitis Status post cholecystectomy Surgery following Continue as needed pain treatments Gen. anxiety disorder Depression Continue Seroquel Continue Lexapro Dysphagia Improved from prior baseline Tolerating pured diet Consider PEG removal Calorie count and process Atrial fibrillation Continue diltiazem Continue Lopressor Eliquis on hold Lovenox Tricuspid regurg Mitral regurg Diastolic heart failure No exacerbations of these conditions Follow clinically Seizure disorder Dilantin DVT prophylaxis Lovenox King Pantoja MD Aug 01, 2017 15:23
[2017-08-02] VITALS (7 sets, daily range): BP systolic 104–160; BP diastolic 56–84; PULSE 69–85; RESP 16–18; TEMP 98.3–99; O2SAT 96–99
[2017-08-02] MEDS: MORPHINE SULFATE 2 MG/ML SYRINGE IV PUSH PRN ×6 (00:43→22:39)
[2017-08-02] MEDS: hydrOXYzine HCL 50 MG TAB PO PRN ×2 (00:48→21:05)
[2017-08-02] MEDS: METOPROLOL TARTRATE 25 MG TAB G-TUBE SCH ×3 (04:53→21:05)
[2017-08-02] MEDS: AMPICILLIN-SULBACTAM INJ 3 GM in SODIUM CHLORIDE 0.9% INJ 100 ML IV SCH ×4 (04:53→23:08)
[2017-08-02] MEDS: PHENYTOIN SODIUM 100 MG CAP PO SCH ×3 (04:53→21:05)
[2017-08-02] MEDS: KETOROLAC TROMETHAMINE 30 MG/ML (IVP) VIAL IV PUSH SCH ×4 (05:53→23:08)
[2017-08-02] MEDS: DOCUSATE SODIUM 50 MG/SENNA 8.6 MG TAB PO SCH ×2 (08:47→21:00)
[2017-08-02] MEDS: ESCITALOPRAM OXALATE 10 MG TAB PO SCH (08:48)
[2017-08-02] MEDS: DILTIAZEM-CD 180 MG CAP ER PO SCH (08:48)
[2017-08-02] MEDS: levETIRAcetam 500 MG TAB PO SCH ×2 (08:48→21:00)
[2017-08-02] MEDS: PANTOPRAZOLE SOD 40 MG DELAYED RELEASE TAB PO SCH (08:49)
[2017-08-02] MEDS: LISINOPRIL 5 MG TAB PO SCH (08:49)
[2017-08-02] MEDS: QUEtiapine FUMARATE 25 MG TAB PO SCH ×2 (08:49→21:00)
[2017-08-02] MEDS: SODIUM CHLORIDE 0.9% FLUSH 10 ML FLUSH IV FLUSH SCH ×2 (08:50→21:04)
--- NOTE | 2017-08-02 12:42 | HHI.PR ---
Subjective Remarks Patient is feeling better. Removal of PEG tube pending. No new complaints from the patient. Objective Vital Signs Date Time Temp Pulse Resp B/P (MAP) Pulse Ox O2 Delivery O2 Flow Rate FiO2 08/02/17 08:52 98 08/02/17 08:00 98.3 77 18 141/63 (89) 96 08/02/17 04:00 98.3 69 18 107/58 (74) 96 08/02/17 04:00 Room Air 08/02/17 00:00 Room Air 08/02/17 00:00 98.4 72 18 104/56 (72) 96 08/01/17 21:25 21 08/01/17 20:00 98.5 75 18 107/60 (76) 97 08/01/17 20:00 Room Air 08/01/17 16:00 97.5 86 20 154/68 (96) 86 I/O 08/01/17 08/01/17 08/01/17 08/02/17 08/02/17 08/02/17 07:00 15:00 23:00 07:00 15:00 23:00 Intake Total 320 ml 600 ml 100 ml Balance 320 ml 600 ml 100 ml Intake Oral 120 ml 600 ml IV Total 200 ml 100 ml # Voids 3 3 3 # Bowel Movements 1 Result Diagram: 08/01/1736 08/01/17 06 Objective Remarks GENERAL: NAD, A&Ox3 HEAD: Normocephalic. NECK: Supple, trachea midline. No lymphadenopathy. EYES: No scleral icterus. No injection or drainage. CARDIOVASCULAR: Regular rate and rhythm without murmurs, gallops, or rubs. RESPIRATORY: Breath sounds equal bilaterally. No accessory muscle use. GASTROINTESTINAL: Abdomen soft, non-tender, nondistended. PEG tube in place, no erythema. MUSCULOSKELETAL: No cyanosis, or edema. SKIN: Warm and dry. NEURO: No focal neurological deficitis. A/P Problem List: (1) Cholecystostomy tube dysfunction ICD Code: T85.518A - Breakdown (mechanical) of other gastrointestinal prosthetic devices, implants and grafts, initial encounter (2) Bile leak ICD Code: K83.9 - Disease of biliary tract, unspecified (3) Cholecystitis ICD Code: K81.9 - Cholecystitis, unspecified Assessment and Plan 57-year-old female admitted secondary to cholecystitis PEG tube removal pending. After PEG tube was removed patient will be stable for discharge to home. Cholecystitis Status post cholecystectomy Surgery following Continue as needed pain treatments Gen. anxiety disorder Depression Continue Seroquel Continue Lexapro Dysphagia Improved from prior baseline Tolerating pured diet Consider PEG removal Calorie count and process Atrial fibrillation Continue diltiazem Continue Lopressor Eliquis on hold Lovenox Tricuspid regurg Mitral regurg Diastolic heart failure No exacerbations of these conditions Follow clinically Seizure disorder Dilantin DVT prophylaxis Lovenox King Pantoja MD Aug 02, 2017 12:42
[2017-08-03] VITALS: BP 164/72; PULSE 88; RESP 18; TEMP 98.3; O2SAT 97
[2017-08-03] MEDS: MORPHINE SULFATE 2 MG/ML SYRINGE IV PUSH PRN ×3 (02:25→10:25)
[2017-08-03 04:00] VITALS: BP 151/78; PULSE 88; RESP 18; TEMP 97.8; O2SAT 97
[2017-08-03] MEDS: AMPICILLIN-SULBACTAM INJ 3 GM in SODIUM CHLORIDE 0.9% INJ 100 ML IV SCH ×2 (04:58→12:00)
[2017-08-03] MEDS: KETOROLAC TROMETHAMINE 30 MG/ML (IVP) VIAL IV PUSH SCH ×2 (04:58→12:00)
[2017-08-03] MEDS: PHENYTOIN SODIUM 100 MG CAP PO SCH (04:59)
[2017-08-03 05:46] LABS: AUTOMATED NEUTROPHIL # 2.9 TH/MM3 (1.8-7.7); BASOPHIL % 0.6 % (0.0-2.0); EOSINOPHIL # 0.3 TH/MM3 (0-0.4); HEMATOCRIT 27.4 % (35.0-46.0); HEMOGLOBIN 8.6 GM/DL (11.6-15.3); LYMPH % 25.8 % (9.0-44.0); LYMPHOCYTE # 1.3 TH/MM3 (1.0-4.8); MEAN CELL VOLUME 74.3 FL (80.0-100.0); MEAN CORPUSCULAR HEMOGLOBIN 23.3 PG (27.0-34.0); MEAN CORPUSCULAR HGB CONC 31.3 % (32.0-36.0); MEAN PLATELET VOLUME 8.8 FL (7.0-11.0); MONO % 8.2 % (0.0-8.0); MONOCYTE # 0.4 TH/MM3 (0-0.9); NEUT % 59.4 % (16.0-70.0); PLATELET COUNT 164 TH/MM3 (150-450); RED BLOOD COUNT 3.69 MIL/MM3 (4.00-5.30); RED CELL DISTRIBUTION WIDTH 24.3 % (11.6-17.2); WHITE BLOOD COUNT 4.9 TH/MM3 (4.0-11.0)
[2017-08-03 05:55] LABS: ALBUMIN 2.8 GM/DL (3.4-5.0); ALT (GPT) 82 U/L (10-53); AST (GOT) 66 U/L (15-37); BICARBONATE 24.9 MEQ/L (21.0-32.0); BLOOD UREA NITROGEN 24 MG/DL (7-18); CALCIUM 9.7 MG/DL (8.5-10.1); CHLORIDE 102 MEQ/L (98-107); CREATININE 0.81 MG/DL (0.50-1.00); GLOMERULAR FILTRATION RATE 72 ML/MIN (>89); GLUCOSE,RANDOM 102 MG/DL (74-106); SODIUM (NA) 137 MEQ/L (136-145)
[2017-08-03 05:58] LABS: ALKALINE PHOSPHATASE 445 U/L (45-117); TOTAL BILIRUBIN ADULT 0.3 MG/DL (0.2-1.0); TOTAL PROTEIN 7.3 GM/DL (6.4-8.2)
[2017-08-03] MEDS: METOPROLOL TARTRATE 25 MG TAB G-TUBE SCH (06:00)
[2017-08-03 08:07] VITALS: BP 170/87; PULSE 84; RESP 18; TEMP 98.3; O2SAT 100
[2017-08-03] MEDS ORDERED: ESCI10TA PO (08:33)
[2017-08-03] MEDS: QUEtiapine FUMARATE 25 MG TAB PO SCH (09:00)
[2017-08-03] MEDS: LISINOPRIL 5 MG TAB PO SCH (09:00)
[2017-08-03] MEDS: ESCITALOPRAM OXALATE 10 MG TAB PO SCH (09:00)
[2017-08-03] MEDS: levETIRAcetam 500 MG TAB PO SCH (09:00)
[2017-08-03] MEDS: DILTIAZEM-CD 180 MG CAP ER PO SCH (09:33)
[2017-08-03] MEDS: DOCUSATE SODIUM 50 MG/SENNA 8.6 MG TAB PO SCH (09:34)
[2017-08-03] MEDS: PANTOPRAZOLE SOD 40 MG DELAYED RELEASE TAB PO SCH (09:34)
[2017-08-03] MEDS: SODIUM CHLORIDE 0.9% FLUSH 10 ML FLUSH IV FLUSH SCH (09:36)
[2017-08-03] MEDS: hydrOXYzine HCL 50 MG TAB PO PRN (09:38)
[2017-08-03] MEDS ORDERED: SERO100T PO (11:23)
[2017-08-03 11:30] VITALS: RESP 18
--- NOTE | 2017-08-03 11:46 | HHI.DS ---
Discharge Summary Admission Date Jul 28, 2017 at 18:12 Discharge Date: Aug 03, 2017 Admitting Diagnosis (1) Cholecystitis ICD Code: K81.9 - Cholecystitis, unspecified Diagnosis: Principal Procedures Cholecystectomy PEG tube placement Brief History - From Admission This is a 57-year-old female who was transferred from the psychiatry floor because of cholecystitis. Patient had a cholecystectomy tube 06/24 for possible cholecystitis and underwent follow-up cholangiogram showed leakage from the fundus of the gallbladder. General surgery has recommended transfer to the medical floor for laparoscopic cholecystectomy this Thursday pending washout of Eliquis for which she was taking for history of A. fib. She also had abnormal liver function test. Patient complaining of intermittent upper abdominal pain associated with chills. No fever, UTI symptoms and diarrhea. This morning she wanted to sign out AGAINST MEDICAL ADVICE because she wants her food advanced currently on pured secondary to dysphagia s/p PEG and refused lab work. Discussed with psychiatry, patient has no capacity to sign out AGAINST MEDICAL ADVICE. All other systems reviewed negative CBC/BMP: 08/03/17 0425 08/03/17 0425 Significant Findings Laboratory Tests Test 08/01/17 06:36 08/03/17 04:25 Hemoglobin 9.7 GM/DL (11.6-15.3) 8.6 GM/DL (11.6-15.3) Hematocrit 31.2 % (35.0-46.0) 27.4 % (35.0-46.0) Mean Corpuscular Volume 74.0 FL (80.0-100.0) 74.3 FL (80.0-100.0) Mean Corpuscular Hemoglobin 23.1 PG (27.0-34.0) 23.3 PG (27.0-34.0) Mean Corpuscular Hemoglobin Concent 31.2 % (32.0-36.0) 31.3 % (32.0-36.0) Red Cell Distribution Width 24.2 % (11.6-17.2) 24.3 % (11.6-17.2) Blood Urea Nitrogen 30 MG/DL (7-18) 24 MG/DL (7-18) Creatinine 1.03 MG/DL (0.50-1.00) Albumin 3.0 GM/DL (3.4-5.0) 2.8 GM/DL (3.4-5.0) Alkaline Phosphatase 501 U/L (45-117) 445 U/L (45-117) Aspartate Amino Transf (AST/SGOT) 82 U/L (15-37) 66 U/L (15-37) Alanine Aminotransferase (ALT/SGPT) 96 U/L (10-53) 82 U/L (10-53) Sodium Level 133 MEQ/L (136-145) Estimat Glomerular Filtration Rate 55 ML/MIN (>89) 72 ML/MIN (>89) Red Blood Count 3.69 MIL/MM3 (4.00-5.30) Monocytes (%) (Auto) 8.2 % (0.0-8.0) Eosinophils (%) (Auto) 6.0 % (0.0-4.0) PE at Discharge GENERAL: This is a well-nourished, well-developed patient, in no apparent distress. SKIN: No rashes, ecchymoses or lesions. Cool and dry. CARDIOVASCULAR: Regular rate and rhythm without murmurs, gallops, or rubs. RESPIRATORY: Clear to auscultation. Breath sounds equal bilaterally. No wheezes , rales, or rhonchi. GASTROINTESTINAL: Abdomen soft, slightly tender over cholecystectomy tube and PEG, nondistended. No guarding. MUSCULOSKELETAL: Extremities without clubbing, cyanosis, or edema. No joint tenderness, effusion, or edema noted. No calf tenderness. Negative Homans sign bilaterally. NEUROLOGICAL: Awake and alert. Cranial nerves II through XII intact. Motor and sensory grossly within normal limits. Five out of 5 muscle strength in all muscle groups. Normal speech. Hospital Course Mrs. Mercer is a 57-year-old female. She was originally admitted here secondary to mental status changes. Abdominal pain was present in psychiatry and she was found to have cholecystitis. She was admitted to the hospital for this. Originally she had a gallbladder drain placed but this failed and she had cholecystectomy performed. She has been cleared by surgery. During her stay here she had a PEG tube placed for dysphagia. Dysphagia has resolved and she is eating within normal limits at this time. PEG tube removal will occur after 3 weeks maturation which will be this Thursday. Outpatient PEG tube removal range. Patient is medically stable for discharge home today. Pt Condition on Discharge: Stable Discharge Disposition: Discharge Home Discharge Time: <= 30 minutes Discharge Instructions DIET: Follow Instructions for: As Tolerated, No Restrictions Activities you can perform: Regular-No Restrictions Follow up Referrals: Appointment for Follow Up - 08/07/17 with [facility] ([facility]) PCP Follow-up - 2 Weeks Surgical - 10 Days with Joel Sterling MD New Medications: Quetiapine (Seroquel) 100 Mg Tab 100 MG PO HS for To Avoid Confussion, #30 TAB 0 Refills Escitalopram (Escitalopram) 10 Mg Tab 10 MG PO DAILY for Depression Control, #30 TAB Continued Medications: Diltiazem CD 24 HR (Diltiazem CD 24 HR) 360 Mg Capcr 360 MG PO DAILY for Afib, #30 CAP 0 Refills Levetiracetam (Keppra) 500 Mg Tab 500 MG PO Q12HR for Seizure Control, #60 TAB Lisinopril (Lisinopril) 5 Mg Tab 2.5 MG PO DAILY for Blood Pressure Management, #30 TAB Metoprolol Tartrate (Metoprolol Tartrate) 25 Mg Tab 25 MG G-TUBE Q8HR for Heart, #90 TAB Hold if systolic BP < 110 or HR < 75 Pantoprazole (Pantoprazole) 40 Mg Tab 40 MG PO DAILY for Reflux, #30 TAB Phenytoin Extended (Dilantin) 100 Mg Cap 200 MG PO Q8HR for Seizure Control, #90 CAP Discontinued Medications: Apixaban (Eliquis) 5 Mg Tab 5 MG PO BID for Blood Clot Prevention, #60 TAB Quetiapine (Seroquel) 25 Mg Tab 50 MG PO BID for Agitation, #60 TAB King Pantoja MD Aug 03, 2017 11:46
== END 2017-08-03 12:46 | disposition home or self-care (01) | DRG 908 ==
LOC: N04B 18:12
PROVIDERS: ADMIT Hospitalist; ATTEND Hospitalist
PROC: 0FT44ZZ Resection of Gallbladder, Percutaneous Endoscopic Approach (ICD-10-PCS; principal; 2017-07-28)
PROC: 0DH63UZ Insertion of Feeding Device into Stomach, Percutaneous Approach (ICD-10-PCS; 2017-07-28)
PROC: 0FP4X0Z Removal of Drainage Device from Gallbladder, External Approach (ICD-10-PCS; 2017-07-28)
DX: T85.698A Other mechanical complication of other specified internal prosthetic devices, implants and grafts, initial encounter (principal); I50.32 Chronic diastolic (congestive) heart failure; I48.91 Unspecified atrial fibrillation; I08.1 Rheumatic disorders of both mitral and tricuspid valves; R13.10 Dysphagia, unspecified; K81.9 Cholecystitis, unspecified; F32.9 Major depressive disorder, single episode, unspecified; G40.909 Epilepsy, unspecified, not intractable, without status epilepticus; F41.9 Anxiety disorder, unspecified; K21.9 Gastro-esophageal reflux disease without esophagitis; Z79.01 Long term (current) use of anticoagulants; T85.520D Displacement of bile duct prosthesis, subsequent encounter
CPT/HCPCS: 80048; 80053; 80076; 80185; 85025; 88304; J0131; J0295; J1100; J1885; J2250; J2270; J2370; J2405; J3010

== ENCOUNTER 2017-08-07 09:02 | Day surgery (SDC) | payer MEDICAID ==
[~2017-08-07 09:02] MED LIST changes: -APIX5TAB PO; +ESCI10TA PO; +SERO100T PO; -SERO25TA PO
[2017-08-07 09:15] VITALS: BP 114/74; PULSE 96; TEMP 98.3; O2SAT 100
== END 2017-08-07 09:50 | disposition home or self-care (01) ==
LOC: HROP 09:02 → HRIP 09:02 → HROP 09:50
PROVIDERS: ATTEND Hospitalist
DX: Z43.1 Encounter for attention to gastrostomy (principal)
CPT/HCPCS: 99211; G0463

== ENCOUNTER 2017-08-18 09:59 | Inpatient (IN) | payer MEDICAID ==
[2017-08-18] VITALS (13 sets, daily range): BP systolic 130–208; BP diastolic 71–97; PULSE 80–157; RESP 16–18; TEMP 98.5–98.8; O2SAT 93–100
[~2017-08-18] VITALS: Ht 157.5 cm; Wt 59.8 kg
[2017-08-18] MEDS ORDERED: DILTIAZEM-CD 240 MG CAP ER PO ONE (10:45)
[2017-08-18] MEDS ORDERED: ONDANSETRON ODT 4 MG TAB PO ONE (10:45)
--- NOTE | 2017-08-18 10:54 | PD ---
HPI Chief Complaint: Abdominal Pain Time Seen by Provider: 10:34 Travel History International Travel<30 days: No Contact w/Intl Traveler<30days: No Traveled to known affect area: No History of Present Illness HPI 57 y/o female presents with diffuse abdominal pain with associated nonbloody vomiting and diarrhea since she had her gallbladder out at the beginning of July. She states she also has not been taking her Cardizem and metoprolol since she got discharged from the hospital. She states she has her metoprolol with her but she has been taking it and her Cardizem is somewhere else. She states she try to get in with her surgeon but he is not available till August 26 and she will be back in [place] by then. She states she went to another hospital where she had a CAT scan that showed a stone by her pancreas but she is not for sure. Patient is a very poor historian and limits significant additional details. PFSH Past Medical History Anemia: Yes Autoimmune Disease: No Anxiety: Yes Depression: Yes Heart Rhythm Problems: Yes (afib) Cancer: Yes Cardiovascular Problems: Yes (AFIB) High Cholesterol: No Chest Pain: Yes Congestive Heart Failure: No COPD: Yes Cerebrovascular Accident: No Diabetes: No Endocrine: No Gastrointestinal Disorders: Yes (inflamation of the gall bladder) GERD: Yes Genitourinary: No Headaches: No Hiatal Hernia: No Hypertension: Yes Immune Disorder: No Musculoskeletal: No Neurologic: Yes (encephalitis) Psychiatric: Yes Reproductive: No Migraines: No Seizures: No Sickle Cell Disease: No Thyroid Disease: No Ulcer: No Tubal Ligation: Yes Past Surgical History AICD: No Arteriovenous Shunt: No Insulin Pump: No Joint Replacement: No Pacemaker: No Other Surgery: No Social History Alcohol Use: No Tobacco Use: Yes (ppd) Substance Use: No Allergies-Medications (Allergen,Severity, Reaction): Coded Allergies: Sulfa (Sulfonamide Antibiotics) (Verified Allergy, Unknown, 08/18/17) ciprofloxacin (Verified Allergy, Unknown, 08/18/17) hydromorphone (Verified Allergy, Unknown, 08/18/17) Reported Meds & Prescriptions Reported Meds & Active Scripts Active Seroquel (Quetiapine Fumarate) 100 Mg Tab 100 Mg PO HS Escitalopram (Escitalopram Oxalate) 10 Mg Tab 10 Mg PO DAILY Diltiazem CD 24 HR 360 Mg Capcr 360 Mg PO DAILY Pantoprazole (Pantoprazole Sodium) 40 Mg Tab 40 Mg PO DAILY Keppra (Levetiracetam) 500 Mg Tab 500 Mg PO Q12HR Dilantin (Phenytoin Extended) 100 Mg Cap 200 Mg PO Q8HR Lisinopril 5 Mg Tab 2.5 Mg PO DAILY Metoprolol Tartrate 25 Mg Tab 25 Mg G-TUBE Q8HR Hold if systolic BP < 110 or HR < 75 Review of Systems ROS Limitations: Poor Historian Except as stated in HPI: all other systems reviewed are Neg Physical Exam Exam Limitations: Poor Historian Narrative GENERAL: 57-year-old female in no apparent distress SKIN: Focused skin assessment warm/dry. HEAD: Atraumatic. Normocephalic. EYES: Pupils equal and round. No scleral icterus. No injection or drainage. ENT: No nasal bleeding or discharge. Mucous membranes pink and moist. NECK: Trachea midline. No JVD. CARDIOVASCULAR: irregular rate and rhythm. No murmur appreciated. RESPIRATORY: No accessory muscle use. Clear to auscultation. Breath sounds equal bilaterally. GASTROINTESTINAL: Abdomen soft, non-tender, nondistended. Mild tenderness diffusely. MUSCULOSKELETAL: No obvious deformities. No clubbing. No cyanosis. No edema. NEUROLOGICAL: Awake. No obvious cranial nerve deficits. Motor grossly within normal limits. Normal speech. Data Data Last Documented VS Vital Signs Date Time Temp Pulse Resp B/P (MAP) Pulse Ox O2 Delivery O2 Flow Rate FiO2 08/18/17 10:39 18 08/18/17 10:39 156 208/97 (134) 99 Nasal Cannula 08/18/17 10:24 98.8 Orders Orders Complete Blood Count With Diff (08/18/17 10:36) Comprehensive Metabolic Panel (08/18/17 10:36) Lipase (08/18/17 10:36) Iv Access Insert/Monitor (08/18/17 10:36) Electrocardiogram (08/18/17 ) Ondansetron Odt (Zofran Odt) (08/18/17 10:45) Diltiazem Cd (Cardizem Cd) (08/18/17 10:45) Ct Abd/Pel W Iv Contrast(Rout) (08/18/17 ) Metoprolol Tartrate Inj (Lopressor Inj) (08/18/17 11:15) Iohexol 350 Inj (Omnipaque 350 Inj) (08/18/17 12:17) Metoprolol Tartrate Inj (Lopressor Inj) (08/18/17 12:30) Metoprolol Tartrate (Lopressor) (08/18/17 12:45) Admit Order (Ed Use Only) (08/18/17 13:06) Labs Laboratory Tests Test 08/18/17 11:03 White Blood Count 5.3 TH/MM3 Red Blood Count 3.80 MIL/MM3 Hemoglobin 8.8 GM/DL Hematocrit 28.7 % Mean Corpuscular Volume 75.4 FL Mean Corpuscular Hemoglobin 23.2 PG Mean Corpuscular Hemoglobin Concent 30.7 % Red Cell Distribution Width 24.2 % Platelet Count 202 TH/MM3 Mean Platelet Volume 9.1 FL Neutrophils (%) (Auto) 59.5 % Lymphocytes (%) (Auto) 25.2 % Monocytes (%) (Auto) 8.9 % Eosinophils (%) (Auto) 5.6 % Basophils (%) (Auto) 0.8 % Neutrophils # (Auto) 3.2 TH/MM3 Lymphocytes # (Auto) 1.3 TH/MM3 Monocytes # (Auto) 0.5 TH/MM3 Eosinophils # (Auto) 0.3 TH/MM3 Basophils # (Auto) 0.0 TH/MM3 CBC Comment DIFF FINAL Differential Comment Blood Urea Nitrogen 8 MG/DL Creatinine 0.79 MG/DL Random Glucose 87 MG/DL Total Protein 7.5 GM/DL Albumin 3.3 GM/DL Calcium Level 9.1 MG/DL Alkaline Phosphatase 192 U/L Aspartate Amino Transf (AST/SGOT) 24 U/L Alanine Aminotransferase (ALT/SGPT) 21 U/L Total Bilirubin 0.6 MG/DL Sodium Level 143 MEQ/L Potassium Level 3.3 MEQ/L Chloride Level 109 MEQ/L Carbon Dioxide Level 24.6 MEQ/L Anion Gap 9 MEQ/L Estimat Glomerular Filtration Rate 74 ML/MIN Lipase 126 U/L MDM Medical Decision Making Medical Screen Exam Complete: Yes Emergency Medical Condition: Yes Medical Record Reviewed: Yes (Patient here beginning of July with cholecystectomy after failure with drain, has Cardizem and metoprolol listed as home meds, past history and other medications reviewed) Interpretation(s) CBC & BMP Diagram 08/18/17 11:03 Total Protein 7.5, Albumin 3.3 L, Calcium Level 9.1, Alkaline Phosphatase 192 H , Aspartate Amino Transf (AST/SGOT) 24, Alanine Aminotransferase (ALT/SGPT) 21, Total Bilirubin 0.6 Last 24 hours Impressions Abdomen/Pelvis CT 08/18/17 0000 Signed Impressions: Service Date/Time: Friday, August 18, 2017 12:13 - CONCLUSION: 1. Bilateral pleural effusions and bibasilar consolidations slightly greater on the right. 2. Status post cholecystectomy. No abnormal fluid collections. 3. No acute inflammatory process. Harry Orellana MD Differential Diagnosis Bile leak, pancreatitis, postop pain, gastroenteritis, A. fib with RVR, noncompliance with medication Narrative Course Will check blood work, CT and dose with Zofran and Cardizem and monitor her heart rate After her home Cardizem heart rate is still uncontrolled we will dose with IV metoprolol and give her home metoprolol dose as well. Patient's heart rate is still uncontrolled so will admit for observation for further rate control and antiemetics. Physician Communication Physician Communication dr verde agrees to admit Diagnosis Primary Impression: Atrial fibrillation with RVR Additional Impressions: Vomiting Qualified Codes: R11.2 - Nausea with vomiting, unspecified Abdominal pain Qualified Codes: R10.9 - Unspecified abdominal pain Admitting Information Admitting Physician Requests: Admit Gill Sung MD Aug 18, 2017 10:54
[2017-08-18] MEDS ORDERED: METOPROLOL TARTRATE 5 MG/5 ML VIAL IV PUSH ONE ×2 (11:15→12:30)
[2017-08-18 11:28] LABS: AUTOMATED NEUTROPHIL # 3.2 TH/MM3 (1.8-7.7); BASOPHIL % 0.8 % (0.0-2.0); EOSINOPHIL # 0.3 TH/MM3 (0-0.4); EOSINOPHIL % 5.6 % (0.0-4.0); HEMATOCRIT 28.7 % (35.0-46.0); HEMOGLOBIN 8.8 GM/DL (11.6-15.3); LYMPH % 25.2 % (9.0-44.0); LYMPHOCYTE # 1.3 TH/MM3 (1.0-4.8); MEAN CELL VOLUME 75.4 FL (80.0-100.0); MEAN CORPUSCULAR HEMOGLOBIN 23.2 PG (27.0-34.0); MEAN CORPUSCULAR HGB CONC 30.7 % (32.0-36.0); MEAN PLATELET VOLUME 9.1 FL (7.0-11.0); MONO % 8.9 % (0.0-8.0); MONOCYTE # 0.5 TH/MM3 (0-0.9); NEUT % 59.5 % (16.0-70.0); PLATELET COUNT 202 TH/MM3 (150-450); RED CELL DISTRIBUTION WIDTH 24.2 % (11.6-17.2); WHITE BLOOD COUNT 5.3 TH/MM3 (4.0-11.0)
[2017-08-18 11:49] LABS: ALBUMIN 3.3 GM/DL (3.4-5.0); ALT (GPT) 21 U/L (10-53); AST (GOT) 24 U/L (15-37); BICARBONATE 24.6 MEQ/L (21.0-32.0); BLOOD UREA NITROGEN 8 MG/DL (7-18); CALCIUM 9.1 MG/DL (8.5-10.1); CHLORIDE 109 MEQ/L (98-107); CREATININE 0.79 MG/DL (0.50-1.00); GLOMERULAR FILTRATION RATE 74 ML/MIN (>89); GLUCOSE,RANDOM 87 MG/DL (74-106); SODIUM (NA) 143 MEQ/L (136-145)
[2017-08-18 11:51] LABS: ALKALINE PHOSPHATASE 192 U/L (45-117); TOTAL BILIRUBIN ADULT 0.6 MG/DL (0.2-1.0); TOTAL PROTEIN 7.5 GM/DL (6.4-8.2)
[2017-08-18] MEDS ORDERED: IOHEXOL 350 MG/ML 10 ML VIAL (for RAD DIAG) IVCONTRAST ONE (12:17)
--- NOTE | 2017-08-18 12:37 | RADRPT ---
EXAM DATE/TIME: 08/18/2017 12:13 [facility] COMPARISON: CT ABDOMEN & PELVIS W/O CONTRAST, June 24, 2017, 18:05. CT ABDOMEN & PELVIS W CONTRAST, June 23, 2017, 19:25. INDICATIONS : Right upper qudarant pain with vomiting. Cholecystectomy 2 weeks ago. IV CONTRAST: 87 cc Omnipaque 350 (iohexol) IV ORAL CONTRAST: No oral contrast ingested. RADIATION DOSE: 5.21 CTDIvol (mGy) MEDICAL HISTORY : Hypertension. Chronic obstructive pulmonary disease. SURGICAL HISTORY : Cholecystectomy. Tubal ligation. ENCOUNTER: Initial ACUITY: 2 weeks PAIN SCALE: 5/10 LOCATION: Right upper quadrant TECHNIQUE: Volumetric scanning of the abdomen and pelvis was performed. Using automated exposure control and ad justment of the mA and/or kV according to patient size, radiation dose was kept as low as reasonably achievable to obtain optimal diagnostic quality images. DICOM format image data is available electro nically for review and comparison. FINDINGS: LOWER LUNGS: Small bilateral pleural effusions greater on the right. Bibasilar consolidation. LIVER: Homogeneous density without lesion. There is no dilation of the biliary tree. Cholecystectomy clips . SPLEEN: Normal size without lesion. PANCREAS: Within normal limits. KIDNEYS: Normal in size and shape. There is no mass, stone or hydronephrosis. ADRENAL GLANDS: Within normal limits. VASCULAR: There is no aortic aneurysm. BOWEL/MESENTERY: The stomach, small bowel, and colon demonstrate no acute abnormality. There is no free intraperitone al air or fluid. Normal appendix. ABDOMINAL WALL: Within normal limits. RETROPERITONEUM: There is no lymphadenopathy. BLADDER: No wall thickening or mass. REPRODUCTIVE: Within normal limits. INGUINAL: There is no lymphadenopathy or hernia. MUSCULOSKELETAL: Within normal limits for patient age. CONCLUSION: 1. Bilateral pleural effusions and bibasilar consolidations slightly greater on the right. 2. Status post cholecystectomy. No abnormal fluid collections. 3. No acute inflammatory process. Harry Orellana MD on August 18, 2017 at 12:32 Board Certified Radiologist. This report was verified electronically.
[2017-08-18] MEDS ORDERED: METOPROLOL TARTRATE 25 MG TAB PO ONE (12:45)
[2017-08-18] MEDS ORDERED: ALUMINUM/MAGNESIUM/SIMETH 30 ML CUP PO PRN (13:45)
[2017-08-18] MEDS ORDERED: ACETAMINOPHEN 325 MG TAB PO PRN (13:45)
[2017-08-18] MEDS ORDERED: ONDANSETRON HCL 4 MG/2 ML VIAL IV PUSH PRN (13:45)
[2017-08-18] MEDS ORDERED: SODIUM CHLORIDE 0.9% FLUSH 10 ML FLUSH IV FLUSH PRN (13:45)
[2017-08-18] MEDS ORDERED: TEMAZEPAM 15 MG CAP PO PRN (13:45)
[2017-08-18] MEDS ORDERED: DILTIAZEM INJ 125 MG in SODIUM CHLORIDE 0.9% INJ 100 ML IV PRN (14:00)
[2017-08-18 15:04] LABS: TROPONIN I LESS THAN 0.02 NG/ML (0.02-0.05)
--- NOTE | 2017-08-18 15:13 | HHI.HP ---
HPI Service [facility] Primary Care Physician Non-Staff Admission Diagnosis afib with rvr, vomiting Diagnoses: (1) Atrial fibrillation with RVR (2) Cardiomyopathy (3) Hypertension Chief Complaint: Diarrhea, heart palpitations Travel History International Travel<30 Days: No Contact w/Intl Traveler <30 Da: No Traveled to Known Affected Are: No History of Present Illness 57-year-old female with history of atrial fibrillation, seizure disorder, COPD, anxiety, hypertension presented to the hospital for evaluation of chronic nonbloody vomiting and diarrhea since her gallbladder was taken in early June 2017 as well as heart palpitations which are more acute and recent. Patient was diagnosed back in June 26, 2017 with tachybradycardia syndrome for which she was evaluated by cardiology as well as EP. During her admission in May 2017, patient was treated for A. fib with RVR and discharged home on Cardizem and Lopressor as well as oral anticoagulation. However patient stated, secondary to some adverse skin reaction and episode of hemoptysis she is no longer on Xarelto. 3 days ago, patient went to an outside hospital for evaluation of intractable nausea and vomiting along with diarrhea, and was discharged after 1 night stay. She states his CT abdomen was ordered and revealed a stone in her pancreas per patient's account. Patient states, she is in the process of moving back in [place]. She currently reports no shortness of breath but denies any chest pain. Review of Systems Except as stated in HPI: all other systems reviewed are Neg Past Family Social History Past Medical History Atrial fibrillation GERD Cardiomyopathy Anxiety Depression COPD Past Surgical History Tubal ligation Cholecystectomy Reported Medications Seroquel (Quetiapine Fumarate) 100 Mg Tab 100 Mg PO HS Escitalopram (Escitalopram Oxalate) 10 Mg Tab 10 Mg PO DAILY Diltiazem CD 24 HR 360 Mg Capcr 360 Mg PO DAILY Pantoprazole (Pantoprazole Sodium) 40 Mg Tab 40 Mg PO DAILY Keppra (Levetiracetam) 500 Mg Tab 500 Mg PO Q12HR Dilantin (Phenytoin Extended) 100 Mg Cap 200 Mg PO Q8HR Lisinopril 5 Mg Tab 2.5 Mg PO DAILY Metoprolol Tartrate 25 Mg Tab 25 Mg G-TUBE Q8HR Hold if systolic BP < 110 or HR < 75 Allergies: Coded Allergies: Sulfa (Sulfonamide Antibiotics) (Verified Allergy, Unknown, 08/18/17) ciprofloxacin (Verified Allergy, Unknown, 08/18/17) hydromorphone (Verified Allergy, Unknown, 08/18/17) Family History Strong family history of CAD, both parents had CVA Social History Alcohol Use: No Tobacco Use: Yes (ppd) Substance Use: No Physical Exam Vital Signs Vital Signs Date Time Temp Pulse Resp B/P (MAP) Pulse Ox O2 Delivery O2 Flow Rate FiO2 08/18/17 10:39 18 08/18/17 10:39 156 18 208/97 (134) 99 Nasal Cannula 08/18/17 10:24 98.8 157 18 131/92 (105) 100 Physical Exam GENERAL: This is a well-nourished, well-developed patient, in no apparent distress. SKIN: No rashes, ecchymoses or lesions. Cool and dry. HEAD: Atraumatic. Normocephalic. No temporal or scalp tenderness. EYES: Pupils equal round and reactive. Extraocular motions intact. No scleral icterus. No injection or drainage. ENT: Nose without bleeding, purulent drainage or septal hematoma. Throat without erythema, tonsillar hypertrophy or exudate. Uvula midline. Airway patent. NECK: Trachea midline. No JVD or lymphadenopathy. Supple, nontender, no meningeal signs. CARDIOVASCULAR: Irregular regular rate and rhythm without murmurs, gallops, or rubs. RESPIRATORY: Clear to auscultation. Breath sounds equal bilaterally. No wheezes , rales, or rhonchi. GASTROINTESTINAL: Abdomen soft, non-tender, nondistended. No hepato-splenomegaly , or palpable masses. No guarding. MUSCULOSKELETAL: Extremities without clubbing, cyanosis, or edema. No joint tenderness, effusion, or edema noted. No calf tenderness. Negative Homans sign bilaterally. NEUROLOGICAL: Awake and alert. Cranial nerves II through XII intact. Motor and sensory grossly within normal limits. Five out of 5 muscle strength in all muscle groups. Normal speech. Laboratory Laboratory Tests Test 08/18/17 11:03 08/18/17 14:18 White Blood Count 5.3 Red Blood Count 3.80 Hemoglobin 8.8 Hematocrit 28.7 Mean Corpuscular Volume 75.4 Mean Corpuscular Hemoglobin 23.2 Mean Corpuscular Hemoglobin Concent 30.7 Red Cell Distribution Width 24.2 Platelet Count 202 Mean Platelet Volume 9.1 Neutrophils (%) (Auto) 59.5 Lymphocytes (%) (Auto) 25.2 Monocytes (%) (Auto) 8.9 Eosinophils (%) (Auto) 5.6 Basophils (%) (Auto) 0.8 Neutrophils # (Auto) 3.2 Lymphocytes # (Auto) 1.3 Monocytes # (Auto) 0.5 Eosinophils # (Auto) 0.3 Basophils # (Auto) 0.0 CBC Comment DIFF FINAL Differential Comment Blood Urea Nitrogen 8 Creatinine 0.79 Random Glucose 87 Total Protein 7.5 Albumin 3.3 Calcium Level 9.1 Alkaline Phosphatase 192 Aspartate Amino Transf (AST/SGOT) 24 Alanine Aminotransferase (ALT/SGPT) 21 Total Bilirubin 0.6 Sodium Level 143 Potassium Level 3.3 Chloride Level 109 Carbon Dioxide Level 24.6 Anion Gap 9 Estimat Glomerular Filtration Rate 74 Lipase 126 Result Diagram: 08/18/17 1103 08/18/17 1103 Imaging Last Impressions Abdomen/Pelvis CT 08/18/17 0000 Signed Impressions: Service Date/Time: Friday, August 18, 2017 12:13 - CONCLUSION: 1. Bilateral pleural effusions and bibasilar consolidations slightly greater on the right. 2. Status post cholecystectomy. No abnormal fluid collections. 3. No acute inflammatory process. Harry Orellana MD Septic Shock Reassessment Septic shock perfusion: reassessment completed Caprini VTE Risk Assessment Caprini VTE Risk Assessment: No/Low Risk (score <= 1) Caprini Risk Assessment Model Point Value = 1 Point Value = 2 Point Value = 3 Point Value = 5 Age 41-60 Minor surgery BMI > 25 kg/m2 Swollen legs Varicose veins or History of unexplained or recurrent spontaneous Oral contraceptives or hormone replacement Sepsis (< 1 month) Serious lung disease, including pneumonia (< 1 month) Abnormal pulmonary function Acute myocardial infarction Congestive heart failure (< 1 month) History of inflammatory bowel disease Medical patient at bed rest Age 61-74 Arthroscopic surgery Major open surgery (> 45 min) Laparoscopic surgery (> 45 min) Malignancy Confined to bed (> 72 hours) Immobilizing plaster cast Central venous access Age >= 75 History of VTE Family history of VTE Factor V Leiden Prothrombin [id number] Lupus anticoagulant Anticardiolipin antibodies Elevated serum homocysteine Heparin-induced thrombocytopenia Other congenital or acquired thrombophilia Stroke (< 1 month) Elective arthroplasty Hip, pelvis, or leg fracture Acute spinal cord injury (< 1 month) Prophylaxis Regimen Total Risk Factor Score Risk Level Prophylaxis Regimen 0-1 Low Early ambulation 2 Moderate Order ONE of the following: *Sequential Compression Device (SCD) *Heparin 5000 units SQ BID 3-4 Higher Order ONE of the following medications: *Heparin 5000 units SQ TID *Enoxaparin/Lovenox 40 mg SQ daily (WT < 150 kg, CrCl > 30 mL/min) *Enoxaparin/Lovenox 30 mg SQ daily (WT < 150 kg, CrCl > 10-29 mL/min) *Enoxaparin/Lovenox 30 mg SQ BID (WT < 150 kg, CrCl > 30 mL/min) AND/OR *Sequential Compression Device (SCD) 5 or more Highest Order ONE of the following medications: *Heparin 5000 units SQ TID (Preferred with Epidurals) *Enoxaparin/Lovenox 40 mg SQ daily (WT < 150 kg, CrCl > 30 mL/min) *Enoxaparin/Lovenox 30 mg SQ daily (WT < 150 kg, CrCl > 10-29 mL/min) *Enoxaparin/Lovenox 30 mg SQ BID (WT < 150 kg, CrCl > 30 mL/min) AND *Sequential Compression Device (SCD) Assessment and Plan Problem List: (1) Atrial fibrillation with RVR ICD Code: I48.91 - Unspecified atrial fibrillation (2) Cardiomyopathy ICD Code: I42.9 - Cardiomyopathy, unspecified Assessment and Plan 57-year-old female with Atrial fibrillation with RVR Chest x-ray noted and reviewed by me with finding of bilateral pleural effusion, bibasilar consolidation greater on the right, however no acute inflammatory process Rule out ACS per protocol with serial cardiac enzyme and EKGs Cardizem drip initially returned however currently out of stock We will try digoxin IV 0.25 mg every hour 4 then 0.125 mg daily versus Lopressor push until rate control Then should resume patient p.o. Cardizem Patient with prior history of tachybradycardia syndrome back in June 26, 2017 , may consider cardiology consultation as needed Secondary to skin reaction and hemoptysis, patient not currently on any oral anticoagulation including Xarelto Status post cholecystectomy Intractable nausea without any emesis Diarrhea C. difficile rule out per protocol with C. difficile PCR Discussed with patient and state unlikely retained CBD stone Clear liquid now and advance diet as tolerated Hypertension Labile BP Resume outpatient medications Cardiomyopathy Resume outpatient medications including lisinopril and consider restarting Lopressor COPD, GERD, seizure disorder, anxiety and depression Resume outpatient medications DVT prophylaxis: Lovenox Code Status Full code Discussed Condition With Patient, ED physician Physician Certification 2 Midnight Certification Type: Admission for Inpatient Services Order for Inpatient Services The services are ordered in accordance with Medicare regulations or non- Medicare payer requirements, as applicable. In the case of services not specified as inpatient-only, they are appropriately provided as inpatient services in accordance with the 2-midnight benchmark. Estimated LOS (days): 2 days is the estimated time the patient will need to remain in the hospital, assuming treatment plan goals are met and no additional complications. Post-Hospital Plan: Not yet determined Harry Montero MD Aug 18, 2017 15:13
[2017-08-18] MEDS ORDERED: POTASSIUM CHLORIDE 25 MEQ EFFERVESCENT TAB PO ONE (15:30)
[2017-08-18] MEDS: DIGOXIN 0.5 MG/2 ML VIAL IV PUSH SCH ×4 (16:40→19:00)
[2017-08-18 22:18] LABS: ALBUMIN 2.9 GM/DL (3.4-5.0); ALT (GPT) 17 U/L (10-53); AST (GOT) 28 U/L (15-37); BICARBONATE 26.9 MEQ/L (21.0-32.0); BLOOD UREA NITROGEN 9 MG/DL (7-18); CALCIUM 8.7 MG/DL (8.5-10.1); CHLORIDE 109 MEQ/L (98-107); GLOMERULAR FILTRATION RATE 73 ML/MIN (>89); GLUCOSE,RANDOM 84 MG/DL (74-106); MAGNESIUM 1.8 MG/DL (1.5-2.5); SODIUM (NA) 141 MEQ/L (136-145)
[2017-08-18 22:24] LABS: BILIRUBIN, URINE NEG (NEG); BLOOD, URINE NEG (NEG); GLUCOSE,URINE NEG (NEG); KETONE, URINE NEG (NEG); MUCUS URINE FEW /lpf (OCC); NITRITE,URINE NEG (NEG); PH, URINE 7.5 (5.0-8.5); SQUAMOUS EPITHELIAL CELL URINE 1 /hpf (0-5); URINE COLOR YELLOW (YELLW/STRAW); URINE LEUKOCYTE ESTERASE NEG (NEG)
[2017-08-18 22:28] LABS: ALKALINE PHOSPHATASE 159 U/L (45-117); FREE T4 1.02 NG/DL (0.76-1.46); PHENYTOIN (DILANTIN) LESS THAN 0.4 MCG/ML (10.0-20.0); TOTAL BILIRUBIN ADULT 0.5 MG/DL (0.2-1.0); TOTAL PROTEIN 6.6 GM/DL (6.4-8.2); TROPONIN I LESS THAN 0.02 NG/ML (0.02-0.05)
[2017-08-18] MEDS: levETIRAcetam 500 MG TAB PO SCH (22:45)
[2017-08-18] MEDS: QUEtiapine FUMARATE 100 MG TAB PO SCH (22:45)
[2017-08-18] MEDS: PHENYTOIN SODIUM 100 MG CAP PO SCH (22:45)
[2017-08-18] MEDS: SODIUM CHLORIDE 0.9% FLUSH 10 ML FLUSH IV FLUSH SCH (22:46)
[2017-08-19] VITALS (24 sets, daily range): BP systolic 131–150; BP diastolic 66–76; PULSE 72–84; RESP 16–18; TEMP 98–98.1; O2SAT 93–98
[2017-08-19] MEDS: PHENYTOIN SODIUM 100 MG CAP PO SCH ×3 (06:34→21:47)
[2017-08-19] MEDS: ESCITALOPRAM OXALATE 10 MG TAB PO SCH (08:49)
[2017-08-19] MEDS: DILTIAZEM-CD 180 MG CAP ER PO SCH (08:49)
[2017-08-19] MEDS: levETIRAcetam 500 MG TAB PO SCH ×2 (08:49→21:46)
[2017-08-19] MEDS: LISINOPRIL 5 MG TAB PO SCH (08:50)
[2017-08-19] MEDS: SODIUM CHLORIDE 0.9% FLUSH 10 ML FLUSH IV FLUSH SCH ×2 (08:54→21:48)
[2017-08-19 08:59] LABS: HEMATOCRIT 23.8 % (35.0-46.0); HEMOGLOBIN 7.4 GM/DL (11.6-15.3); MEAN CELL VOLUME 75.2 FL (80.0-100.0); MEAN CORPUSCULAR HEMOGLOBIN 23.4 PG (27.0-34.0); MEAN CORPUSCULAR HGB CONC 31.1 % (32.0-36.0); MEAN PLATELET VOLUME 9.2 FL (7.0-11.0); PLATELET COUNT 153 TH/MM3 (150-450); RED BLOOD COUNT 3.17 MIL/MM3 (4.00-5.30); RED CELL DISTRIBUTION WIDTH 23.9 % (11.6-17.2)
[2017-08-19] MEDS ORDERED: ENOXAPARIN SODIUM 40 MG/0.4 ML SYRINGE SQ SCH (09:00)
--- NOTE | 2017-08-19 09:56 | EKG ---
Date Performed: 08/18/2017 Time Performed: 10:44:19 PTAGE: 57 years EKG: ATRIAL FIBRILLATION WITH RAPID VENTRICULAR RESPONSE ABNORMAL RHYTHM ECG PREVIOUS TRACING : 06/24/2017 15.02 DOCTOR: Homero Levin Interpretating Date/Time 08/19/2017 09:55:50
--- NOTE | 2017-08-19 15:57 | HHI.PR ---
Subjective Remarks Patient c/o epigastric pain and nausea. Still having diarrhea Denies fevers or chills Denies cp, sob, palpitations Patient states that she was on Xarelto but this was discontinued by his primary doctor after she developed severe bruising. Objective Vitals Vital Signs Date Time Temp Pulse Resp B/P (MAP) Pulse Ox O2 Delivery O2 Flow Rate FiO2 08/19/17 15:00 82 08/19/17 15:00 98.1 74 18 131/72 (91) 95 08/19/17 14:00 74 08/19/17 13:00 74 08/19/17 12:00 76 08/19/17 11:19 98.0 80 18 139/75 (96) 93 08/19/17 11:00 78 08/19/17 10:00 78 08/19/17 09:00 78 08/19/17 08:00 74 08/19/17 07:30 98.0 73 18 147/76 (99) 94 08/19/17 07:00 76 08/19/17 04:22 78 08/19/17 04:00 74 08/19/17 03:00 78 08/19/17 02:00 82 08/19/17 01:00 82 08/19/17 00:00 84 08/19/17 00:00 81 16 150/71 (97) 93 08/19/17 00:00 83 08/18/17 23:00 92 08/18/17 22:00 80 08/18/17 21:00 82 08/18/17 20:00 82 08/18/17 20:00 86 08/18/17 20:00 82 16 155/88 (110) 96 08/18/17 19:00 84 08/18/17 18:00 86 08/18/17 17:45 96 08/18/17 17:00 100 08/18/17 16:00 96 I/O 08/18/17 08/18/17 08/18/17 08/19/17 08/19/17 08/19/17 07:00 15:00 23:00 07:00 15:00 23:00 Intake Total 701 ml 240 ml Output Total 851 ml Balance 701 ml -611 ml Intake Oral 701 ml 240 ml Output Urine Total 850 ml Stool Total 1 ml # Voids 1 Result Diagram: 08/19/17 07 08/18/172008 Imaging Last Impressions Abdomen/Pelvis CT 08/18/17 0000 Signed Impressions: Service Date/Time: Friday, August 18, 2017 12:13 - CONCLUSION: 1. Bilateral pleural effusions and bibasilar consolidations slightly greater on the right. 2. Status post cholecystectomy. No abnormal fluid collections. 3. No acute inflammatory process. Harry Orellana MD Objective Remarks GENERAL: This is a well-nourished, well-developed patient, in no apparent distress. SKIN: No rashes, ecchymoses or lesions. Cool and dry. HEAD: Atraumatic. Normocephalic. No temporal or scalp tenderness. EYES: Pupils equal round and reactive. Extraocular motions intact. No scleral icterus. No injection or drainage. ENT: Nose without bleeding, purulent drainage or septal hematoma. Throat without erythema, tonsillar hypertrophy or exudate. Uvula midline. Airway patent. NECK: Trachea midline. No JVD or lymphadenopathy. Supple, nontender, no meningeal signs. CARDIOVASCULAR: Irregular regular rate and rhythm without murmurs, gallops, or rubs. RESPIRATORY: Clear to auscultation. Breath sounds equal bilaterally. No wheezes , rales, or rhonchi. GASTROINTESTINAL: Abdomen soft, tender to palpation of epigastric region, nondistended. No hepato-splenomegaly, or palpable masses. No guarding. MUSCULOSKELETAL: Extremities without clubbing, cyanosis, or edema. No joint tenderness, effusion, or edema noted. No calf tenderness. Negative Homans sign bilaterally. NEUROLOGICAL: Awake and alert. Cranial nerves II through XII intact. Motor and sensory grossly within normal limits. Five out of 5 muscle strength in all muscle groups. Normal speech. Medications and IVs Current Medications Medications (Trade) Dose Ordered Sig/Salud Route Start Time Stop Time Status Last Admin (NS Flush) 2 ml UNSCH PRN IV FLUSH 08/18/17 13:45 (NS Flush) 2 ml BID IV FLUSH 08/18/17 21:00 08/19/17 08:54 (Tylenol) 650 mg Q4H PRN PO 08/18/17 13:45 (Zofran Inj) 4 mg Q6H PRN IV PUSH 08/18/17 13:45 (Mag-Al Plus Susp Liq) 30 ml Q6H PRN PO 08/18/17 13:45 08/19/17 11:29 (Restoril) 15 mg HS PRN PO 08/18/17 13:45 (Cardizem Cd) 360 mg DAILY PO 08/19/17 09:00 08/19/17 08:49 (Lexapro) 10 mg DAILY PO 08/19/17 09:00 08/19/17 08:49 (Keppra) 500 mg Q12HR PO 08/18/17 21:00 08/19/17 08:49 (Prinivil) 2.5 mg DAILY PO 08/19/17 09:00 08/19/17 08:50 (Dilantin) 200 mg Q8HR PO 08/18/17 22:00 08/19/17 15:46 (SEROquel) 100 mg HS PO 08/18/17 21:00 08/18/17 22:45 (Lovenox Inj) 40 mg Q24H SQ 08/19/17 09:00 08/19/17 08:50 Urinary Catheter: No Vascular Central Line Catheter: No A/P Problem List: (1) Atrial fibrillation with RVR ICD Code: I48.91 - Unspecified atrial fibrillation Plan: Patient on sinus rhythm. Continue to monitor on telemetry. Continue diltiazem. (2) Cardiomyopathy ICD Code: I42.9 - Cardiomyopathy, unspecified (3) Epigastric pain ICD Code: R10.13 - Epigastric pain (4) Nausea ICD Code: R11.0 - Nausea Assessment and Plan 57-year-old female with Atrial fibrillation with RVR Chest x-ray noted and reviewed by me with finding of bilateral pleural effusion, bibasilar consolidation greater on the right, however no acute inflammatory process Rule out ACS per protocol with serial cardiac enzyme and EKGs Cardizem drip initially returned however currently out of stock We will try digoxin IV 0.25 mg every hour 4 then 0.125 mg daily versus Lopressor push until rate control Then should resume patient p.o. Cardizem Patient with prior history of tachybradycardia syndrome back in June 26, 2017 , may consider cardiology consultation as needed Secondary to skin reaction and hemoptysis, patient not currently on any oral anticoagulation including Xarelto 08/19 Patient converted back to sinus rythm. Patient has paroxismal atrial fibrillation. Continue Diltiazem. Status post cholecystectomy Intractable nausea without any emesis Diarrhea Epigastric pain C. difficile rule out per protocol with C. difficile PCR Discussed with patient and state unlikely retained CBD stone Clear liquid now and advance diet as tolerated 08/19 Patient with epigastric pain and h/o gastric erosions and ulcer in duodenum in previous EGD. Consult GI. Start PPI. Hypertension BP more stable. Cardiomyopathy Acute on chronic systolic heart failure. Resume outpatient medications including lisinopril and consider restarting Lopressor. 08/19 BL pleural effusions - Likely related to CHF. Will start patient on IV lasix. COPD, GERD, seizure disorder, anxiety and depression Continue outpatient medications DVT prophylaxis: Lovenox Problem Qualifiers (1) Cardiomyopathy: Qualified Codes: I42.0 - Dilated cardiomyopathy Emmanuel Linn MD Aug 19, 2017 15:57
--- NOTE | 2017-08-19 16:17 | PD.CONS ---
HPI History of Present Illness This is a 57 year old female with hx AF, seizure, COPD who presented with nausea , vomiting, diarrhea. She has had diarrhea since having cholecystectomy back in June 2017. She says n/v is intermittent and cannot further qualify, however she is currently tolerating her diet. SHe is c/o epigastric pain in the last few weeks. She denies blood or coffee ground appearance of emesis and denies black tarry stool or blood in stool. The diarrhea flucturate and this morning she had a yellow semiformed BM. She was evaluated by our service in June for anemia. 06/30/17 he had a colonoscopy that was unremarkable and EGD revealing small erosions antrum, medium ulcer duodenum. She said she was told to take a PPI but has not been compliant. SHe cites numerous external stressors related to family problems. (Lilly Fry) PFSH Past Medical History Atrial fibrillation GERD Cardiomyopathy Anxiety Depression COPD Past Surgical History Tubal ligation Cholecystectomy (Lilly Fry) Coded Allergies: rivaroxaban (Verified Allergy, Severe, blisters, 08/18/17) Sulfa (Sulfonamide Antibiotics) (Verified Allergy, Unknown, 08/18/17) ciprofloxacin (Verified Allergy, Unknown, 08/18/17) hydromorphone (Verified Allergy, Unknown, 08/18/17) Family History Strong family history of CAD, both parents had CVA DM [place] HTN Social History Alcohol Use: No Tobacco Use: Yes (ppd) Substance Use: No (Lilly Fry) Review of Systems Constitutional: DENIES: Fever Endocrine: DENIES: Polydipsia Eyes: DENIES: Blurred vision Ears, nose, mouth, throat: DENIES: Hearing loss Respiratory: DENIES: Cough Cardiovascular: DENIES: Chest pain Gastrointestinal: COMPLAINS OF: Abdominal pain, Diarrhea, Nausea, Vomiting, DENIES: Black stools, Bloody stools, Hematemesis Genitourinary: DENIES: Hematuria Musculoskeletal: DENIES: Joint pain Integumentary: DENIES: Abnormal pigmentation, Pruritus Hematologic/lymphatic: DENIES: Bruising Immunologic/allergic: DENIES: Eczema Neurologic: DENIES: Abnormal gait Psychiatric: COMPLAINS OF: Anxiety, DENIES: Confusion (Lilly Fry) GI Exam Vitals I&O Vital Signs Date Time Temp Pulse Resp B/P (MAP) Pulse Ox O2 Delivery O2 Flow Rate FiO2 08/19/17 15:00 82 08/19/17 15:00 98.1 74 18 131/72 (91) 95 08/19/17 14:00 74 08/19/17 13:00 74 08/19/17 12:00 76 08/19/17 11:19 98.0 80 18 139/75 (96) 93 08/19/17 11:00 78 08/19/17 10:00 78 08/19/17 09:00 78 08/19/17 08:00 74 08/19/17 07:30 98.0 73 18 147/76 (99) 94 08/19/17 07:00 76 08/19/17 04:22 78 08/19/17 04:00 74 08/19/17 03:00 78 08/19/17 02:00 82 08/19/17 01:00 82 08/19/17 00:00 84 08/19/17 00:00 81 16 150/71 (97) 93 08/19/17 00:00 83 08/18/17 23:00 92 08/18/17 22:00 80 08/18/17 21:00 82 08/18/17 20:00 82 08/18/17 20:00 86 08/18/17 20:00 82 16 155/88 (110) 96 08/18/17 19:00 84 08/18/17 18:00 86 08/18/17 17:45 96 08/18/17 17:00 100 I/O 08/18/17 08/18/17 08/18/17 08/19/17 08/19/17 08/19/17 07:00 15:00 23:00 07:00 15:00 23:00 Intake Total 701 ml 240 ml Output Total 851 ml Balance 701 ml -611 ml Intake Oral 701 ml 240 ml Output Urine Total 850 ml Stool Total 1 ml # Voids 1 Imaging Last Impressions Abdomen/Pelvis CT 08/18/17 0000 Signed Impressions: Service Date/Time: Friday, August 18, 2017 12:13 - CONCLUSION: 1. Bilateral pleural effusions and bibasilar consolidations slightly greater on the right. 2. Status post cholecystectomy. No abnormal fluid collections. 3. No acute inflammatory process. Harry Orellana MD Laboratory Test 08/18/17 17:30 08/18/17 20:09 08/19/17 07:22 Urine Color YELLOW Urine Turbidity CLEAR Urine pH 7.5 Urine Specific [place] GREATER THAN 1.050 Urine Protein TRACE mg/dL Urine Glucose (UA) NEG mg/dL Urine Ketones NEG mg/dL Urine Occult Blood NEG Urine Nitrite NEG Urine Bilirubin NEG Urine Urobilinogen LESS THAN 2.0 MG/DL Urine Leukocyte Esterase NEG Urine RBC 1 /hpf Urine WBC 1 /hpf Urine Squamous Epithelial Cells 1 /hpf Urine Mucus FEW /lpf Microscopic Urinalysis Comment CULT NOT INDICATED Blood Urea Nitrogen 9 MG/DL Creatinine 0.80 MG/DL Random Glucose 84 MG/DL Total Protein 6.6 GM/DL Albumin 2.9 GM/DL Calcium Level 8.7 MG/DL Magnesium Level 1.8 MG/DL Alkaline Phosphatase 159 U/L Aspartate Amino Transf (AST/SGOT) 28 U/L Alanine Aminotransferase (ALT/SGPT) 17 U/L Total Bilirubin 0.5 MG/DL Sodium Level 141 MEQ/L Potassium Level 5.1 MEQ/L Chloride Level 109 MEQ/L Carbon Dioxide Level 26.9 MEQ/L Anion Gap 5 MEQ/L Estimat Glomerular Filtration Rate 73 ML/MIN Total Creatine Kinase 29 U/L Troponin I LESS THAN 0.02 NG/ML Free Thyroxine 1.02 NG/DL Thyroid Stimulating Hormone 3rd Gen 2.700 uIU/ML Phenytoin (Dilantin) Level LESS THAN 0.4 MCG/ML White Blood Count 4.0 TH/MM3 Red Blood Count 3.17 MIL/MM3 Hemoglobin 7.4 GM/DL Hematocrit 23.8 % Mean Corpuscular Volume 75.2 FL Mean Corpuscular Hemoglobin 23.4 PG Mean Corpuscular Hemoglobin Concent 31.1 % Red Cell Distribution Width 23.9 % Platelet Count 153 TH/MM3 Mean Platelet Volume 9.2 FL Physical Examination HEENT: PERRL; normocephalic; atraumatic; no jaundice. CHEST: CTA CARDIAC: RRR ABDOMEN: Soft, nondistended,TTP epigastrium; no hepatosplenomegaly; bowel sounds are present in all four quadrants. EXTREMITIES: No clubbing, cyanosis, or edema. SKIN: Normal; no rash; no jaundice. numerous small bruises [employer]: No focal deficits; alert and oriented times three. (Lilly Fry) Assessment and Plan Plan ASSESSMENT - n/v/diarrhea - chronic. n/v mild and intermittent. diarrhea fluctuating in severity and frequency since cholecystectomy 06/2017. EGD 06/2017 showed small erosions antrum, medium ulcer duodenum. path reactive gastropathy. Colonoscopy at that time unremarkable. CT scan no acute abd findings. WBC WNL. - anemia - microcytic. looks chronic. no obvious bleeding. PLAN - EGD tomorrow - obtain consent - NPO after MN - stool studies - BID PPI - carafate with meals - if stool studies neg, consider cholestyramine - further recs to follow pt seen by myself and Dr Guadalupe and this note is on his behalf (Lilly Fry) Physician Comments Patient seen and examined Agree with above Continue with current supportive care Monitor labs Plan for an EGD tomorrow (Dread Guadalupe MD) Lilly Fry Aug 19, 2017 16:17 Dread Guadalupe MD Aug 19, 2017 20:57
[2017-08-19] MEDS: SUCRALFATE 1 GM/10 ML CUP PO SCH ×2 (16:31→21:46)
[2017-08-19] MEDS: FUROSEMIDE 40 MG/4 ML VIAL IV PUSH SCH (17:16)
[2017-08-19] MEDS ORDERED: diphenhydrAMINE HCL 25 MG CAP PO ONE (21:15)
[2017-08-19] MEDS: PANTOPRAZOLE SODIUM 40 MG VIAL IV PUSH SCH (21:47)
[2017-08-19] MEDS: QUEtiapine FUMARATE 100 MG TAB PO SCH (21:47)
[2017-08-20] VITALS (27 sets, daily range): BP systolic 115–150; BP diastolic 66–82; PULSE 68–84; RESP 16–20; TEMP 97.5–98.8; O2SAT 93–100
[2017-08-20] MEDS: PHENYTOIN SODIUM 100 MG CAP PO SCH ×4 (06:11→21:09)
[2017-08-20] MEDS: SODIUM CHLORIDE 0.9% FLUSH 10 ML FLUSH IV FLUSH SCH ×2 (09:00→21:10)
[2017-08-20] MEDS: LISINOPRIL 5 MG TAB PO SCH (09:11)
[2017-08-20] MEDS: SUCRALFATE 1 GM/10 ML CUP PO SCH ×4 (09:11→21:09)
[2017-08-20] MEDS: DILTIAZEM-CD 180 MG CAP ER PO SCH (09:12)
[2017-08-20] MEDS: PANTOPRAZOLE SODIUM 40 MG VIAL IV PUSH SCH ×2 (09:12→21:10)
[2017-08-20] MEDS: ESCITALOPRAM OXALATE 10 MG TAB PO SCH (09:13)
[2017-08-20] MEDS: FUROSEMIDE 40 MG/4 ML VIAL IV PUSH SCH (09:13)
--- NOTE | 2017-08-20 11:39 | PD.PROCEDR ---
GI Procedure PROCEDURE PERFORMED EGD with biopsies INDICATION FOR PROCEDURE Nausea vomiting, diarrhea, anemia PROCEDURE: The procedure, risks and benefits were discussed with Patient/POA and informed consent was obtained. Anesthesia sedated Patient with Diprivan. Patient was placed in the left lateral decubitus position. EGD: The Pentax videoscope was introduced through the oropharynx and advanced to the second portion of the duodenum under direct visualization. Retroflexion was performed in the stomach. FINDINGS: The esophagus there was distal esophageal mucosal erythema with an irregular Z line suggestive of reflux esophagitis grade B this was biopsied The stomach there was a small hiatal hernia there was also some patchy erythema in the antrum but no ulcerations no erosions no blood or bleeding the antrum was biopsied the rest of the stomach was unremarkable The duodenum this was normal random biopsies were taken for further evaluation of diarrhea ESTIMATED BLOOD LOSS: None SPECIMENS REMOVED: Esophageal, gastric, duodenal biopsies COMPLICATIONS: None IMPRESSION: Reflux esophagitis grade B Irregular Z line Hiatal hernia Gastritis PLAN: Await biopsies Continue PPI twice daily Advance diet Follow-up with GI post discharge Dread Guadalupe MD Aug 20, 2017 11:39
[2017-08-20] MEDS ORDERED: PROPOFOL 200 MG/20 ML AMP IV ONE (12:00)
[2017-08-20] MEDS ORDERED: LIDOCAINE HCL 1% PF 5 ML SYRINGE OTHER ONE (12:00)
[2017-08-20] MEDS: levETIRAcetam 500 MG TAB PO SCH ×2 (12:40→21:00)
[2017-08-20] MEDS: hydrOXYzine HCL 25 MG TAB PO PRN ×2 (12:40→18:44)
--- NOTE | 2017-08-20 15:09 | HHI.PR ---
Subjective Remarks patient c/o itchiness all over her body which started today. Diarrhea is improving as per patient sp EGD w biopsies Denies cp/sob nausea much improved Diarrhea resolving - patient states stools are better formed. Objective Vitals Vital Signs Date Time Temp Pulse Resp B/P (MAP) Pulse Ox O2 Delivery O2 Flow Rate FiO2 08/20/17 12:01 97.8 72 18 115/66 (82) 93 08/20/17 11:50 97.2 71 18 103/81 (88) 95 08/20/17 09:01 97.5 73 18 145/74 (97) 96 08/20/17 07:01 70 08/20/17 06:00 68 08/20/17 05:00 70 08/20/17 04:00 68 08/20/17 04:00 69 16 127/70 (89) 96 08/20/17 04:00 69 08/20/17 03:00 68 08/20/17 02:00 68 08/20/17 01:00 74 08/20/17 00:00 84 08/20/17 00:00 78 08/19/17 23:00 78 08/19/17 21:00 72 08/19/17 20:00 74 08/19/17 20:00 98.1 75 16 146/66 (92) 98 08/19/17 19:00 74 08/19/17 18:00 76 08/19/17 17:00 74 08/19/17 16:20 74 08/19/17 15:00 82 08/19/17 15:00 98.1 74 18 131/72 (91) 95 I/O 08/19/17 08/19/17 08/19/17 08/20/17 08/20/17 08/20/17 07:00 15:00 23:00 07:00 15:00 23:00 Intake Total 240 ml 720 ml 240 ml 50 ml Output Total 851 ml 1451 ml Balance -611 ml -731 ml 240 ml 50 ml Intake Oral 240 ml 720 ml 240 ml Other 50 ml Output Urine Total 850 ml 1450 ml Stool Total 1 ml 1 ml # Voids 2 Result Diagram: 08/19/17 0722 08/18/172008 Imaging Last Impressions Abdomen/Pelvis CT 08/18/17 0000 Signed Impressions: Service Date/Time: [place], August 18, 2017 12:13 - CONCLUSION: 1. Bilateral pleural effusions and bibasilar consolidations slightly greater on the right. 2. Status post cholecystectomy. No abnormal fluid collections. 3. No acute inflammatory process. Harry Orellana MD Objective Remarks GENERAL: This is a well-nourished, well-developed patient, in no apparent distress. SKIN: No rashes, ecchymoses or lesions. Cool and dry. HEAD: Atraumatic. Normocephalic. No temporal or scalp tenderness. EYES: Pupils equal round and reactive. Extraocular motions intact. No scleral icterus. No injection or drainage. ENT: Nose without bleeding, purulent drainage or septal hematoma. Throat without erythema, tonsillar hypertrophy or exudate. Uvula midline. Airway patent. NECK: Trachea midline. No JVD or lymphadenopathy. Supple, nontender, no meningeal signs. CARDIOVASCULAR: Irregular regular rate and rhythm without murmurs, gallops, or rubs. RESPIRATORY: Clear to auscultation. Breath sounds equal bilaterally. No wheezes , rales, or rhonchi. GASTROINTESTINAL: Abdomen soft, tender to palpation of epigastric region, nondistended. No hepato-splenomegaly, or palpable masses. No guarding. MUSCULOSKELETAL: Extremities without clubbing, cyanosis, or edema. No joint tenderness, effusion, or edema noted. No calf tenderness. Negative Homans sign bilaterally. NEUROLOGICAL: Awake and alert. Cranial nerves II through XII intact. Motor and sensory grossly within normal limits. Five out of 5 muscle strength in all muscle groups. Normal speech. Medications and IVs Current Medications Medications (Trade) Dose Ordered Sig/Salud Route Start Time Stop Time Status Last Admin (NS Flush) 2 ml UNSCH PRN IV FLUSH 08/18/17 13:45 (NS Flush) 2 ml BID IV FLUSH 08/18/17 21:00 08/20/17 09:00 (Tylenol) 650 mg Q4H PRN PO 08/18/17 13:45 (Zofran Inj) 4 mg Q6H PRN IV PUSH 08/18/17 13:45 (Mag-Al Plus Susp Liq) 30 ml Q6H PRN PO 08/18/17 13:45 08/19/17 11:29 (Restoril) 15 mg HS PRN PO 08/18/17 13:45 (Cardizem Cd) 360 mg DAILY PO 08/19/17 09:00 08/20/17 09:12 (Lexapro) 10 mg DAILY PO 08/19/17 09:00 08/20/17 09:13 (Keppra) 500 mg Q12HR PO 08/18/17 21:00 08/20/17 12:40 (Prinivil) 2.5 mg DAILY PO 08/19/17 09:00 08/20/17 09:11 (Dilantin) 200 mg Q8HR PO 08/18/17 22:00 08/20/17 06:11 (SEROquel) 100 mg HS PO 08/18/17 21:00 08/19/17 21:47 (Lovenox Inj) 40 mg Q24H SQ 08/19/17 09:00 Future Hold 08/19/17 08:50 (Carafate Liq) 1 gm ACHS PO 08/19/17 17:00 08/20/17 12:40 (Protonix Inj) 40 mg Q12HR IV PUSH 08/19/17 21:00 08/20/17 09:12 (Lasix Inj) 40 mg BID@ IV PUSH 08/19/17 18:00 08/20/17 09:13 (Questran 4 Gm Pkt) 4 gm Q12HR PO 08/20/17 21:00 (Atarax) 25 mg Q6H PRN PO 08/20/17 11:00 08/20/17 12:40 A/P Problem List: (1) Atrial fibrillation with RVR ICD Code: I48.91 - Unspecified atrial fibrillation (2) Cardiomyopathy ICD Code: I42.9 - Cardiomyopathy, unspecified (3) Epigastric pain ICD Code: R10.13 - Epigastric pain (4) Nausea ICD Code: R11.0 - Nausea (5) Pruritus ICD Code: L29.9 - Pruritus, unspecified Assessment and Plan 57-year-old female with Atrial fibrillation with RVR Chest x-ray noted and reviewed by me with finding of bilateral pleural effusion, bibasilar consolidation greater on the right, however no acute inflammatory process Ruled out ACS per protocol with serial cardiac enzyme and EKGs Initially Cardizem drip was ordered however out of stock. Patient was treated with IV digoxin, IV metoprolol tartrate. Converted back to normal sinus rhythm. On p.o. Cardizem. Patient with prior history of tachybradycardia syndrome back in June 26, 2017 , may consider cardiology consultation as needed 08/19 Patient converted back to sinus rythm. Patient has paroxismal atrial fibrillation. Continue Diltiazem. 08/20 [id number] score is 2. The patient needs to be on oral anticoagulation. I will discuss with GI and if cleared to do so I will start the patient on Eliquis. Status post cholecystectomy Intractable nausea without any emesis - resolved. Diarrhea - resolving Epigastric pain - resolved C. difficile ruled out per protocol with C. difficile PCR Discussed with patient and state unlikely retained CBD stone Clear liquid now and advance diet as tolerated 08/19 Patient with epigastric pain and h/o gastric erosions and ulcer in duodenum in previous EGD. Consult GI. Start PPI. 08/20 GI consulted. Status post EGD with biopsies which showed reflux esophagitis grade B, irregular Z line, hiatal hernia and gastritis. Continue PPI twice daily, advance diet. Stool studies without white blood cells seen, negative for Cryptosporidium and stool Giardia antigen. Started the patient on cholestyramine earlier today with improvement of diarrhea. Discussed case with GI - Dr Guadalupe. Nausea also resolved patient is tolerating diet. Hypertension BP more stable. On lisinopril 2.5 mg p.o. daily. Cardiomyopathy Acute on chronic systolic heart failure. Resume outpatient medications including lisinopril and consider restarting Lopressor. 08/19 BL pleural effusions - Likely related to CHF. Will start patient on IV lasix. COPD, GERD, seizure disorder, anxiety and depression Continue outpatient medications Pruritus Patient started on furosemide however having pruritus. Suspect patient is having allergic reaction to furosemide since the patient has a sulfa allergy. DC IV Lasix and start ethacrynic acid. Started the patient on Atarax, however given persistence of itchiness I will give Benadryl. DVT prophylaxis: Lovenox Discharge Planning DC pending improvement of pruritus. Possible DC in a.m. Problem Qualifiers (1) Cardiomyopathy: Qualified Codes: I42.0 - Dilated cardiomyopathy Emmanuel Linn MD Aug 20, 2017 15:09
[2017-08-20] MEDS ORDERED: diphenhydrAMINE HCL 25 MG CAP PO ONE (16:00)
[2017-08-20] MEDS: ETHACRYNIC ACID 25 MG TAB PO SCH (16:01)
[2017-08-20] MEDS: CHOLESTYRAMINE 4 GM PACKET PO SCH (21:00)
[2017-08-20] MEDS: APIXABAN 5 MG TABLET PO SCH (21:00)
[2017-08-20] MEDS: QUEtiapine FUMARATE 100 MG TAB PO SCH (21:08)
[2017-08-21] VITALS (15 sets, daily range): BP systolic 118–128; BP diastolic 66–78; PULSE 67–90; RESP 16–20; TEMP 97.6–98.2; O2SAT 97–99
[2017-08-21] MEDS: PHENYTOIN SODIUM 100 MG CAP PO SCH (04:36)
[2017-08-21] MEDS: SODIUM CHLORIDE 0.9% FLUSH 10 ML FLUSH IV FLUSH SCH (09:00)
[2017-08-21] MEDS: levETIRAcetam 500 MG TAB PO SCH (09:00)
[2017-08-21] MEDS: APIXABAN 5 MG TABLET PO SCH (09:00)
[2017-08-21] MEDS: LISINOPRIL 5 MG TAB PO SCH (10:01)
[2017-08-21] MEDS: ESCITALOPRAM OXALATE 10 MG TAB PO SCH (10:01)
[2017-08-21] MEDS: DILTIAZEM-CD 180 MG CAP ER PO SCH (10:01)
[2017-08-21] MEDS: CHOLESTYRAMINE 4 GM PACKET PO SCH (10:01)
[2017-08-21] MEDS: ETHACRYNIC ACID 25 MG TAB PO SCH (10:01)
[2017-08-21] MEDS: PANTOPRAZOLE SODIUM 40 MG VIAL IV PUSH SCH (10:02)
[2017-08-21] MEDS: SUCRALFATE 1 GM/10 ML CUP PO SCH ×2 (10:02→12:55)
[2017-08-21] MEDS ORDERED: APIX5TAB PO (11:07)
[2017-08-21] MEDS ORDERED: PANT40TA3 PO (11:07)
[2017-08-21] MEDS ORDERED: SUCR1S PO (11:07)
[2017-08-21] MEDS ORDERED: HYDR-3133 PO (11:07)
[2017-08-21] MEDS ORDERED: ETHA25TA PO (11:07)
[2017-08-21] MEDS ORDERED: LISI-519 PO (11:07)
[2017-08-21] MEDS ORDERED: DILT360C12 PO (11:07)
[2017-08-21] MEDS ORDERED: CHOL4POW4 PO (11:07)
[2017-08-21] MEDS ORDERED: METOPROLOL TARTRATE 25 MG TAB PO ONE (11:15)
[2017-08-21] MEDS ORDERED: METO25TA3 PO (11:18)
[2017-08-21] MEDS ORDERED: FURO1TAB62 PO (11:22)
--- NOTE | 2017-08-21 11:26 | HHI.DS ---
Discharge Summary Admission Date Aug 18, 2017 at 13:08 Discharge Date: Aug 21, 2017 Admitting Diagnosis afib with rvr, vomiting (1) Atrial fibrillation with RVR ICD Code: I48.91 - Unspecified atrial fibrillation (2) Cardiomyopathy ICD Code: I42.9 - Cardiomyopathy, unspecified (3) Epigastric pain ICD Code: R10.13 - Epigastric pain (4) Nausea ICD Code: R11.0 - Nausea (5) Pruritus ICD Code: L29.9 - Pruritus, unspecified Procedures egd Brief History - From Admission 57-year-old female with history of atrial fibrillation, seizure disorder, COPD, anxiety, hypertension presented to the hospital for evaluation of chronic nonbloody vomiting and diarrhea since her gallbladder was taken in early June 2017 as well as heart palpitations which are more acute and recent. Patient was diagnosed back in June 26, 2017 with tachybradycardia syndrome for which she was evaluated by cardiology as well as EP. During her admission in May 2017, patient was treated for A. fib with RVR and discharged home on Cardizem and Lopressor as well as oral anticoagulation. However patient stated, secondary to some adverse skin reaction and episode of hemoptysis she is no longer on Xarelto. 3 days ago, patient went to an outside hospital for evaluation of intractable nausea and vomiting along with diarrhea, and was discharged after 1 night stay. She states his CT abdomen was ordered and revealed a stone in her pancreas per patient's account. Patient states, she is in the process of moving back in [place]. She currently reports no shortness of breath but denies any chest pain. CBC/BMP: 08/19/17 0722 08/18/172008 Significant Findings Laboratory Tests Test 08/18/17 14:18 08/18/17 17:30 08/18/17 20:09 08/19/17 07:22 Troponin I LESS THAN 0.02 NG/ML LESS THAN 0.02 NG/ML Urine Specific [place] GREATER THAN 1.050 Urine Mucus FEW /lpf (OCC) Albumin 2.9 GM/DL (3.4-5.0) Alkaline Phosphatase 159 U/L (45-117) Chloride Level 109 MEQ/L (98-107) Estimat Glomerular Filtration Rate 73 ML/MIN (>89) Phenytoin (Dilantin) Level LESS THAN 0.4 MCG/ML Red Blood Count 3.17 MIL/MM3 (4.00-5.30) Hemoglobin 7.4 GM/DL (11.6-15.3) Hematocrit 23.8 % (35.0-46.0) Mean Corpuscular Volume 75.2 FL (80.0-100.0) Mean Corpuscular Hemoglobin 23.4 PG (27.0-34.0) Mean Corpuscular Hemoglobin Concent 31.1 % (32.0-36.0) Red Cell Distribution Width 23.9 % (11.6-17.2) Test 08/19/17 16:32 Imaging Last Impressions Abdomen/Pelvis CT 08/18/17 0000 Signed Impressions: Service Date/Time: Friday, August 18, 2017 12:13 - CONCLUSION: 1. Bilateral pleural effusions and bibasilar consolidations slightly greater on the right. 2. Status post cholecystectomy. No abnormal fluid collections. 3. No acute inflammatory process. Harry Orellana MD PE at Discharge GENERAL: laying in bed, comfortable CARDIOVASCULAR: Irregular regular rate and rhythm without murmurs RESPIRATORY: Clear to auscultation. Breath sounds equal bilaterally. No wheezes GASTROINTESTINAL: Abdomen soft, some discomfort to palpation of epigastric region, nondistended. MUSCULOSKELETAL: Extremities without edema. Normal speech. Pt update on day of discharge Patient states she feels a lot better. No more nausea or diarrhea. No chest pain, shortness of breath or cough. Patient has mild epigastric pain however she states it is a lot better and wants to go home. Hospital Course Atrial fibrillation with RVR Chest x-ray noted w bilateral pleural effusion, bibasilar consolidation greater on the right, however no acute inflammatory process. Patient is asymptomatic. Initially Cardizem drip was ordered however out of stock. Patient was treated with IV digoxin, IV metoprolol tartrate. Converted back to normal sinus rhythm. On p.o. Cardizem and continue upon discharge. Refill ordered. Patient with prior history of tachybradycardia syndrome back in June 26, 2017 , may consider cardiology consultation as needed [id number] score is 2. The patient needs to be on oral anticoagulation which was started. Prescription in chart Status post cholecystectomy Intractable nausea without any emesis - resolved. Diarrhea - resolved Epigastric pain - resolved C. difficile negative Tolerating a diet GI evaluated the patient and she is status post EGD with biopsies which showed reflux esophagitis grade B, irregular Z line, hiatal hernia and gastritis. Continue PPI twice daily, advance diet. Stool studies without white blood cells seen, negative for Cryptosporidium and stool. follow-up with GI in 2 weeks as an outpatient. 1 of the stool cultures still pending, patient to follow-up with GI or PCP if diarrhea returns. At this time patient is doing a lot better and her diarrhea has resolved therefore okay to discharge today. Cardiomyopathy Acute on chronic systolic heart failure. Resume outpatient medications including lisinopril and will restart low-dose Lopressor. 08/19 BL pleural effusions - Likely related to CHF. s/p IV lasix. was transitioned to edecrin. Monitor as an outpatient ECHO from 07/12 showed EF of 45-50%. Patient is asymptomatic at this time will hold off on treatment with any antibiotics (consolidations noted w pulm edema). Low-sodium diet recommended fluid restriction COPD, GERD, seizure disorder, anxiety and depression Continue outpatient medications Pruritus Patient started on furosemide however having pruritus. Suspect patient is having allergic reaction to furosemide since the patient has a sulfa allergy. DC IV Lasix and started on ethacrynic acid. Started the patient on Atarax Pt Condition on Discharge: Stable Discharge Disposition: Discharge Home Discharge Time: > 30 minutes Discharge Instructions DIET: Follow Instructions for: Heart Healthy Diet Activities you can perform: Regular-No Restrictions Follow up Referrals: Gastroenterology - 2 Weeks PCP Follow-up - 1 Week New Medications: Metoprolol Tartrate (Metoprolol Tartrate) 25 Mg Tab 25 MG PO DAILY, #30 TAB 0 Refills Apixaban (Eliquis) 5 Mg Tab 5 MG PO BID, #60 TAB Cholestyramine (Cholestyramine) 4 Gm/Pkt Powd 4 GM PO Q12HR, #30 PKT 1 packet contains 4 grams of cholestyramine. Ethacrynic Acid (Edecrin) 25 Mg Tab 25 MG PO DAILY, #30 TAB Hydroxyzine HCl (Hydroxyzine HCl) 25 Mg Tab 25 MG PO Q6H PRN for ITCHING, #12 TAB Sucralfate Liq (Sucralfate Liq) 1 Gram/10 Ml Jaimee 1 GM PO ACHS, #300 ML Changed Medications: Pantoprazole (Pantoprazole) 40 Mg Tab 40 MG PO BID for Reflux, #60 TAB (Changed from: DAILY; 30) Continued Medications: Diltiazem CD 24 HR (Diltiazem CD 24 HR) 360 Mg Capcr 360 MG PO DAILY for Afib, #30 CAP 0 Refills (This prescription has been renewed) Escitalopram (Escitalopram) 10 Mg Tab 10 MG PO DAILY for Depression Control, #30 TAB Levetiracetam (Keppra) 500 Mg Tab 500 MG PO Q12HR for Seizure Control, #60 TAB Lisinopril (Lisinopril) 5 Mg Tab 2.5 MG PO DAILY for Blood Pressure Management, #30 TAB (This prescription has been renewed) Phenytoin Extended (Dilantin) 100 Mg Cap 200 MG PO Q8HR for Seizure Control, #90 CAP Quetiapine (Seroquel) 100 Mg Tab 100 MG PO HS for To Avoid Confussion, #30 TAB 0 Refills Consuelo Sharma MD Aug 21, 2017 11:26
--- NOTE | 2017-08-21 11:42 | HHI.GIFU ---
Subjective Remarks Pt washing up at sink. Diarrhea, n/v improved. Still has mild abd tenderness. tolerating diet. (Lilly Fry) Objective Vitals I&O Vital Signs Date Time Temp Pulse Resp B/P (MAP) Pulse Ox O2 Delivery O2 Flow Rate FiO2 08/21/17 08:46 97.6 87 16 118/78 (91) 99 08/21/17 06:00 87 08/21/17 05:00 82 08/21/17 04:00 90 08/21/17 03:50 98.2 67 20 124/66 (85) 99 08/21/17 03:00 80 08/21/17 01:00 82 08/21/17 00:00 76 08/20/17 23:13 98.8 76 20 150/82 (104) 98 08/20/17 23:00 76 08/20/17 22:00 80 08/20/17 21:00 74 08/20/17 20:00 74 08/20/17 19:23 98.5 77 20 131/67 (88) 97 08/20/17 19:00 72 08/20/17 18:01 76 08/20/17 17:00 68 08/20/17 16:48 96 21 08/20/17 16:00 70 08/20/17 15:30 98.1 75 18 133/71 (91) 100 08/20/17 15:00 71 08/20/17 14:00 78 08/20/17 13:00 70 08/20/17 12:01 97.8 72 18 115/66 (82) 93 08/20/17 11:50 97.2 71 18 103/81 (88) 95 I/O 08/20/17 08/20/17 08/20/17 08/21/17 08/21/17 08/21/17 07:00 15:00 23:00 07:00 15:00 23:00 Intake Total 240 ml 50 ml 924 ml 800 ml Output Total 1200 ml 300 ml Balance 240 ml 50 ml -276 ml 500 ml Intake Oral 240 ml 924 ml 800 ml Other 50 ml Output Urine Total 1200 ml 300 ml # Voids 2 8 3 # Bowel Movements 1 0 Laboratory Date/Time Source Procedure Growth Status 08/19/17 16:32 Stool Stool Cryptosporidium Exam - Final NEGATIVE - NO CRYPTOSPORIDIUM ANTIGEN... Complete 4/25/18 16:32 Stool Stool Stool Pus ([facility]) - Final NO WBC'S SEEN Complete 08/19/17 16:32 Stool Stool Giardia Antigen ([facility]) - Final NEGATIVE - NO GIARDIA ANTIGEN DETECTE... Complete Imaging Last Impressions Abdomen/Pelvis CT 08/18/17 0000 Signed Impressions: Service Date/Time: Friday, August 18, 2017 12:13 - CONCLUSION: 1. Bilateral pleural effusions and bibasilar consolidations slightly greater on the right. 2. Status post cholecystectomy. No abnormal fluid collections. 3. No acute inflammatory process. Harry Orellana MD Physical Exam HEENT: PERRL; normocephalic; atraumatic; no jaundice. CHEST: CTA CARDIAC: RRR ABDOMEN: Soft, nondistended, mild epigastric TTP; no hepatosplenomegaly; bowel sounds are present in all four quadrants. EXTREMITIES: No clubbing, cyanosis, or edema. SKIN: Normal; no rash; no jaundice. FLAVORER: No focal deficits; alert and oriented times three. (Lilly Fry) Assessment and Plan Plan ASSESSMENT - n/v/diarrhea - chronic. n/v mild and intermittent. diarrhea fluctuating in severity and frequency since cholecystectomy 06/2017. EGD 06/2017 showed small erosions antrum, medium ulcer duodenum. path reactive gastropathy. Colonoscopy at that time unremarkable. CT scan no acute abd findings. WBC WNL. - anemia - microcytic. looks chronic. no obvious bleeding. 08/21/17 s/p EGD revealed relfux esophagitis, irr z line, hiatal hernia, gastritis. pt is doing better. stool studies so far neg, including c diff PLAN - REY - await bx - BID PPI pt seen by myself and Dr Guadalupe and this note is on his behalf (Lilly Fry) Physician Comments Patient seen and examined Agree with above Continue with current supportive care Monitor labs Follow-up with GI post discharge Not much to add at this point we will sign off (Dread Guadalupe MD) Lilly Fry Aug 21, 2017 11:42 Dread Guadalupe MD Aug 21, 2017 12:57
[2017-08-21] MEDS ORDERED: METOPROLOL TARTRATE 25 MG TAB PO SCH (21:00)
== END 2017-08-21 13:51 | disposition home or self-care (01) | DRG 308 ==
LOC: NEPE 09:59 → NEDA 13:08 → HCIS 14:53
PROVIDERS: ADMIT Hospitalist; ATTEND Hospitalist
PROC: 0DB68ZX Excision of Stomach, Via Natural or Artificial Opening Endoscopic, Diagnostic (ICD-10-PCS; 2017-08-20)
PROC: 0DB58ZX Excision of Esophagus, Via Natural or Artificial Opening Endoscopic, Diagnostic (ICD-10-PCS; 2017-08-20)
PROC: 0DB98ZX Excision of Duodenum, Via Natural or Artificial Opening Endoscopic, Diagnostic (ICD-10-PCS; principal; 2017-08-20 11:10)
DX: I48.91 Unspecified atrial fibrillation (principal); I50.23 Acute on chronic systolic (congestive) heart failure; I42.9 Cardiomyopathy, unspecified; J44.9 Chronic obstructive pulmonary disease, unspecified; F41.9 Anxiety disorder, unspecified; G40.909 Epilepsy, unspecified, not intractable, without status epilepticus; K21.9 Gastro-esophageal reflux disease without esophagitis; K21.0 Gastro-esophageal reflux disease with esophagitis; K44.9 Diaphragmatic hernia without obstruction or gangrene; I11.0 Hypertensive heart disease with heart failure; K29.70 Gastritis, unspecified, without bleeding; L29.9 Pruritus, unspecified; F32.9 Major depressive disorder, single episode, unspecified; F17.200 Nicotine dependence, unspecified, uncomplicated; Z88.1 Allergy status to other antibiotic agents; Z88.2 Allergy status to sulfonamides; Z88.8 Allergy status to other drugs, medicaments and biological substances
CPT/HCPCS: 74177; 80053; 80185; 81001; 82550; 83690; 83735; 84439; 84443; 84484; 85025; 85027; 87205; 87328; 87329; 87493; 87506; 88305; 88312; 93005; 96374; 96375; C9113; J1160; J1650; J1940; Q9967